=== PATIENT | female | born 1945 | race Caucasian/White ===

== ENCOUNTER → 2017-11-27 09:02 | Outpatient (CLI) | payer OTHER, SELFPAY ==
[2017-11-27 10:21] LABS: Add Manual Diff / Slide Review NO; Basophils Percent Auto 0.7 % (0-2); Eosinophils Percent Auto 1.7 % (2-4); Hematocrit 33.2 % (36-46); Hemoglobin 10.8 g/dL (12.0-16.0); Mean Corpuscular HGB Conc 32.5 % (30-36); Mean Corpuscular Volume 83.1 fL (80-100); Monocytes Percent Auto 8.7 % (3-14); Neutrophils Absolute Auto 3200 /uL (3000-5900); Neutrophils Percent Auto 64.9 % (50-75); Platelet Count 224 X10^3/uL (150-400); Red Blood Cell Count 3.99 X10^6/uL (4.0-5.2); White Blood Cell Count 4.9 X10^3/uL (4.5-11.0)
[2017-11-27 10:34] LABS: Hemoglobin A1C% w Est Avg Glu 6.5 % (4.0-6.0)
[2017-11-27 10:41] LABS: HEMOLYSIS < 15 (0-50); Iron 42 ug/dL (37-170)
[2017-11-27 10:42] LABS: Alanine Aminotransferase 22 IU/L (9-52); Albumin 4.1 g/dL (3.5-5.0); Albumin Globulin Ratio 1.4 (1.0-2.8); Alkaline Phosphatase 55 U/L (38-126); Aspartate Aminotransferase 26 IU/L (14-36); Bilirubin Total 0.5 mg/dL (0.2-1.3); Blood Urea Nitrogen 24 mg/dL (7-17); Calcium 8.9 mg/dL (8.4-10.2); Carbon Dioxide 34 mmol/L (22-32); Chloride 102 mmol/L (98-107); Cholesterol 188 mg/dL (140-199); Estimated Glomerular Filt Rate 44.3 mL/min (>60); Glucose 74 mg/dL (80-110); HDL Cholesterol 58 mg/dL (40-60); HEMOLYSIS < 15 (0-50); LDL Cholesterol Calculated 103 mg/dL (<100); Potassium 4.1 mmol/L (3.4-5.1); Sodium 143 mmol/L (137-145); Total Protein 7.1 g/dL (6.3-8.2); Triglycerides 137 mg/dL (35-150)
[2017-11-27 10:51] LABS: Creatinine Urine Random 57.7 mg/dL; Percent Iron Saturation 14 % (15-50); Total Iron Binding Capacity 295 ug/dL (265-497); Transferrin 236 mg/dL (206-381)
[2017-11-27 10:55] LABS: Microalbumi Creatinin Ratio Ur 39.8 ug/mg CR (<30); Microalbumin Urine Random 2.3 mg/dL (0-1.6); Vitamin D 25 Hydroxy (D3) 32.8 ng/mL (30.0-100.0)
[2017-11-27 11:11] LABS: Thyroid Stimulating Hormone 1.17 uIU/mL (0.47-4.68)
[2017-11-27 11:15] LABS: Ferritin 68.4 ng/mL (11.1-264)
== END ==
PROVIDERS: PCP Family Medicine; Visit Provider Family Medicine
DX: Z00.00 Encounter for general adult medical examination without abnormal findings (principal); E11.9 Type 2 diabetes mellitus without complications; E78.5 Hyperlipidemia, unspecified; E55.9 Vitamin D deficiency, unspecified; K50.90 Crohn's disease, unspecified, without complications; D64.9 Anemia, unspecified
CPT/HCPCS: 36415; 80053; 80061; 82043; 82306; 82570; 82728; 83036; 83540; 83550; 84443; 85025

== ENCOUNTER → 2018-04-10 11:04 | Outpatient (CLI) | payer OTHER, SELFPAY ==
[2018-04-10 12:16] LABS: Hematocrit 34.8 % (36-46); Hemoglobin 11.2 g/dL (12.0-16.0)
[2018-04-10 12:28] LABS: BUN Creatinine Ratio 14.6 (6-22); Blood Urea Nitrogen 19 mg/dL (7-17); Calcium 9.1 mg/dL (8.4-10.2); Carbon Dioxide 26 mmol/L (22-32); Chloride 104 mmol/L (98-107); Estimated Glomerular Filt Rate 40.4 mL/min (>60); Glucose 81 mg/dL (80-110); HEMOLYSIS < 15 (0-50); Potassium 4.4 mmol/L (3.4-5.1); Sodium 144 mmol/L (137-145)
== END ==
PROVIDERS: PCP Student in an Organized Health Care Education/Training Program; Visit Provider Student in an Organized Health Care Education/Training Program
DX: Z86.2 Personal history of diseases of the blood and blood-forming organs and certain disorders involving the immune mechanism (principal); N18.3 Chronic kidney disease, stage 3 (moderate)
CPT/HCPCS: 36415; 80048; 85014; 85018

== ENCOUNTER 2019-01-03 08:31 | Inpatient (IN) | payer MEDICARE, SELFPAY ==
[2019-01-03] VITALS (34 sets, daily range): BP systolic 87–194; BP diastolic 49–115; PULSE 59–138; RESP 12–28; TEMP 36.3–37.1; O2SAT 91–100; BMI 34.9
--- NOTE | 2019-01-03 08:39 | ED_ITS ---
HPI - General Adult General Chief complaint: Allergic Reaction Stated complaint: SOB, tongue swelling Time Seen by Provider: 01/03/19 08:33 Source: patient Mode of arrival: ambulatory Limitations: no limitations History of Present Illness HPI narrative: This is a 73-year-old female who comes to the emergency departm ent with complaint of difficulty breathing and swelling of her tongue patient states that she noted the changes about 1:00 a.m. this morning and they have continued. Patient does take lisinopril daily. She has never had similar symptoms in the past. She drove herself to the hospital. She denies any wheezing or tightness in her chest. She denies any other symptoms other than a mildly sore throat. Related Data Home Medications Medication Instructions Recorded Confirmed curcumin 1 dose PO DAILY 12/11/17 04/10/18 Glucose: Home Monitor 0 dev TOPICAL TID 01/03/19 01/03/19 omeprazole 20 mg PO DAILY 01/03/19 01/03/19 Previous Rx's Medication Instructions Recorded insulin syringe-needle U-100 0.3 #500 each 12/11/17 mL 29 gauge x 1/2 aspirin 81 mg tablet,delayed 81 mg PO DAILY #30 tab 04/10/18 release insulin glargine 100) 100 unit/mL 20 unit SUBCUT DAILY #10 ml 09/24/18 subcutaneous solution lisinopril 10 mg tablet 10 mg PO DAILY #90 tab 09/24/18 atorvastatin 20 mg tablet 20 mg PO QPM #90 tab 10/01/18 metformin 1,000 mg tablet 1,000 mg PO BID #180 tab 10/01/18 zolpidem 5 mg tablet 5 mg PO BEDTIME PRN #15 tab 10/01/18 Glucose: Test Strips #1 ea 11/21/18 Allergies Allergy/AdvReac Type Severity Reaction Status Date / Time lisinopril Allergy Severe Swelling Verified 01/03/19 15:32 of Lip/Tongue/Throat Review of Systems Review of Systems ROS Unobtainable: All systems reviewed & are unremarkable except as noted in HPI and below PFSH Medical History Abnormal Pap smear of cervix (Resolved) Crohn's disease (Chronic) Diabetes mellitus (Chronic) Duodenal ulcer (Chronic) GERD (gastroesophageal reflux disease) (Chronic) Hyperlipidemia (Chronic) Surgical History History of left oophorectomy (Resolved) Status post cone biopsy of cervix (Resolved) Status post laparoscopic cholecystectomy (Resolved) Family History Father Diabetes mellitus Social History Smoking Status: Former smoker Social History Smoking Status: Former smoker Exam Narrative Exam Narrative: GEN: well nourished, well appearing female, alert and oriented x 3, patient appears to be in mild distress. HEENT: Atraumatic, pupils are equal round reactive to light, extraocular movements are intact, nares are clear. Throat is clear without any exudate. Patient has some swelling of the tongue. Patient has a muffled voice. No stridor noted. HEART: Regular rate and rhythm without murmur, clicks, rubs. LUNGS:Lungs clear to auscultation, no wheezes, rales, crackles, chest moves symmetrically ABD:bowel sounds normal, soft, non-tender, no guarding, rebound, rigidity, no masses noted, no hepatosplenomegaly MSCL: Non-tender, no muscle atrophy, muscles strength 5/5 upper and lower extremities, full range of motion NEURO:CN 2-12 intact, sensation normal, normal gait. Initial Vital Signs Initial Vital Signs: Vital Signs Temperature 97.9 F 01/03/19 08:32 Pulse Rate 84 01/03/19 08:32 Respiratory Rate 20 01/03/19 08:32 Blood Pressure 140/68 01/03/19 08:32 Pulse Oximetry 99 01/03/19 08:32 Procedures Intubation Time out performed: Yes sedative: Ketamine Mg Given: 80 Laryngoscope: fiber optic video scope Assist Device Used: Bougie Intubation Complications: unable to intubate Additional Comments: Unsuccessful attempt at intubation, stopped and BVM back to 100%. 2nd attempt with bougie but patient began to gag and became awake and responsive. Procedure was halted. Patient to protect airway and anesthesia was contacted who were initially unavailable, ENT was contacted both ultimately ended up arriving to the Emergency Department evaluated patient and she was intubated by Dr. Wilson from anesthesia. Patient was quite anterior. Into was able to evaluate the patient during this episode and gave recommendations as well. Course Orders Ordered: ED Orders 01/03/19 09:32 CT soft tissue neck w con Stat 01/03/19 11:04 XR chest 1V Stat 01/03/19 12:13 Consult to Dietitian, Adult Routine Endotracheal tube suction As needed Acetaminophen (Tylenol Susp) 650 mg TUBE Q6HR [facility] Last Admin: 01/03/19 18:21 Dose: 650 mg Documented by: CAILIN Aspirin (Aspirin Chew) 81 mg TUBE DAILY SHIKHA Last Admin: 01/03/19 16:01 Dose: 81 mg Documented by: CAILIN Atorvastatin Calcium (Lipitor) 20 mg TUBE QPM [facility] Last Admin: 01/03/19 18:20 Dose: 20 mg Documented by: CAILIN Dextrose (D50w) 25 gm IV PRN PRN; Protocol PRN Reason: Hypoglycemia Docusate Sodium (Colace Oral Liquid) 100 mg TUBE BID [facility] Fentanyl (Sublimaze) 50 mcg IV Q2H PRN PRN Reason: Pain, Severe (7-10) Last Admin: 01/03/19 14:09 Dose: 50 mcg Documented by: SIA Fentanyl (Sublimaze) 100 mcg IV Q2HR PRN PRN Reason: Pain, Severe (7-10) Heparin Sodium (Porcine) (Heparin) 5,000 unit SUBCUT BID SHIKHA Sodium Chloride (Normal Saline 0.9%) 1,000 mls @ 150 mls/hr IV CONT SHIKHA Last Infusion: 01/03/19 13:27 Dose: 150 mls/hr Documented by: Admin: 01/03/19 11:00 Dose: 150 mls/hr Documented by: DESIRETONE Sodium Chloride (Normal Saline 0.9%) 1,000 mls @ 100 mls/hr IV CONT SHIKHA Last Admin: 01/03/19 14:23 Dose: 100 mls/hr Documented by: SIA Propofol (Propofol) 1,000 mg in 100 mls @ 2.472 mls/hr IV TITRATE SHIKHA; Protocol Last Titration: 01/03/19 14:41 Dose: 39.24 mcg/kg/min, 19.4 mls/hr Documented by: Admin: 01/03/19 14:23 Dose: 50 mcg/kg/min, 24.72 mls/hr Documented by: SIA Famotidine (Pepcid) 20 mg in 50 mls @ 200 mls/hr IV Q12HR [facility] Last Admin: 01/03/19 16:01 Dose: 200 mls/hr Documented by: CAILIN Insulin Aspart (Novolog Flexpen) 0 unit SUBCUT Q6H SHIKHA; Protocol Insulin Glargine (Lantus Solostar (Pen)) 20 unit SUBCUT BEDTIME SHIKHA Loratadine (Claritin) 10 mg PO DAILY [facility] Last Admin: 01/03/19 16:00 Dose: 10 mg Documented by: CAILIN Methylprednisolone (Solu-Medrol 125 Mg Vial) 60 mg IV Q8H [facility] Last Admin: 01/03/19 14:49 Dose: 60 mg Documented by: SIA Discontinued Medications Benzocaine/Butamben/Tetracaine HCl (Cetacaine Chaplin) 1 spray TOP NOW ONE Stop: 01/03/19 10:26 Last Admin: 01/03/19 11:15 Dose: Not Given Documented by: KOFI Diazepam (Valium) 5 mg IV NOW ONE Stop: 01/03/19 11:02 Last Admin: 01/03/19 11:05 Dose: 5 mg Documented by: KOFI Diphenhydramine HCl (Benadryl) 50 mg IV NOW ONE Stop: 01/03/19 08:38 Last Admin: 01/03/19 08:50 Dose: 50 mg Documented by: KOFI Epinephrine HCl (Adrenalin) 0.5 mg IM NOW ONE Stop: 01/03/19 08:38 Last Admin: 01/03/19 08:45 Dose: 0.5 mg Documented by: KOFI Famotidine (Pepcid) 20 mg in 50 mls @ 200 mls/hr IV NOW ONE Stop: 01/03/19 08:51 Last Infusion: 01/03/19 09:21 Dose: 0 mls/hr Documented by: Admin: 01/03/19 08:51 Dose: 200 mls/hr Documented by: KOFI Sodium Chloride (Normal Saline 0.9%) 1,000 mls @ 1,000 mls/hr IV BOLUS ONE Stop: 01/03/19 09:36 Last Infusion: 01/03/19 10:00 Dose: 0 mls/hr Documented by: Admin: 01/03/19 08:48 Dose: 1,000 mls/hr Documented by: KOFI Ampicillin Sodium/Sulbactam (Sodium 1.5 gm/ Sodium Chloride) 100 mls @ 100 mls/hr IV NOW ONE Stop: 01/03/19 09:24 Last Infusion: 01/03/19 10:50 Dose: 0 mls/hr Documented by: Admin: 01/03/19 09:48 Dose: 100 mls/hr Documented by: KOFI Propofol (Propofol) 1,000 mg in 100 mls @ 2.472 mls/hr IV TITRATE SHIKHA; Protocol Last Titration: 01/03/19 14:30 Dose: 0 mcg/kg/min, 0 mls/hr Documented by: Titration: 01/03/19 13:51 Dose: 30 mcg/kg/min, 14.832 mls/hr Documented by: Titration: 01/03/19 13:13 Dose: 24.27 mcg/kg/min, 11.999 mls/hr Documented by: Titration: 01/03/19 12:46 Dose: 24.27 mcg/kg/min, 12 mls/hr Documented by: Titration: 01/03/19 11:50 Dose: 20 mcg/kg/min, 9.888 mls/hr Documented by: Admin: 01/03/19 10:55 Dose: 5 mcg/kg/min, 2.472 mls/hr Documented by: KOFI Ketamine HCl (Ketalar) 80 mg 1 mg/kg (80 mg) IV NOW ONE Stop: 01/03/19 09:53 Last Admin: 01/03/19 10:14 Dose: 80 mg Documented by: KOFI Ketamine HCl (Ketalar) 80 mg 1 mg/kg (80 mg) IV NOW ONE Stop: 01/03/19 11:28 Last Admin: 01/03/19 10:43 Dose: 80 mg Documented by: KOFI Ketamine HCl (Ketalar) 80 mg 1 mg/kg (80 mg) IV NOW ONE Stop: 01/03/19 11:30 Last Admin: 01/03/19 10:46 Dose: 80 mg Documented by: KOFI Methylprednisolone (Solu-Medrol 125 Mg Vial) 125 mg IV NOW ONE Stop: 01/03/19 08:38 Last Admin: 01/03/19 08:44 Dose: 125 mg Documented by: KOFI Methylprednisolone (Solu-Medrol 125 Mg Vial) 60 mg IV Q8H SHIKHA Last Admin: 01/03/19 14:54 Dose: Not Given Documented by: SIA Ondansetron HCl (Zofran) 4 mg IV NOW ONE Stop: 01/03/19 09:02 Last Admin: 01/03/19 09:07 Dose: 4 mg Documented by: KOFI Propofol (Diprivan) 50 mg IV NOW ONE Stop: 01/03/19 10:51 Last Admin: 01/03/19 10:50 Dose: 50 mg Documented by: KOFI Succinylcholine Chloride (Quelicin) 20 mg IV NOW ONE Stop: 01/03/19 10:48 Last Admin: 01/03/19 10:47 Dose: 20 mg Documented by: KOFI Vital Signs Vital signs: Vital Signs - 8 hr 01/03/19 10:36 01/03/19 10:45 01/03/19 10:55 Pulse Rate 107 H 134 H 126 H Respiratory Rate 17 20 15 Blood Pressure [Left Arm] 165/63 H 183/94 H 180/115 H Pulse Oximetry 100 93 92 01/03/19 11:05 01/03/19 11:15 01/03/19 11:31 Pulse Rate 122 H 131 H 102 H Respiratory Rate 18 15 12 Blood Pressure [Left Arm] 194/81 H 113/69 107/53 L Pulse Oximetry 94 91 96 01/03/19 11:56 01/03/19 12:22 Pulse Rate 107 H 89 Respiratory Rate 12 12 Blood Pressure [Left Arm] 151/100 H 94/53 L Pulse Oximetry 95 96 Medical Decision Making Lab Data Lab results reviewed: Yes I reviewed the patient's lab results. Result diagrams: 01/03/19 08:40 01/03/19 08:40 Labs: Lab Results 01/03/19 01/03/19 Range/Units 08:40 08:40 WBC 9.5 (4.5-11.0) X10^3/uL RBC 4.22 (4.0-5.2) X10^6/uL Hgb 11.2 L (12.0-16.0) g/dL Hct 34.5 L (36-46) % MCV 81.8 (80-100) fL MCH 26.6 (26-34) PG MCHC 32.5 (30-36) % RDW 15.1 H (11.6-14.8) % Plt Count 248 (150-400) X10^3/uL Neut % (Auto) 74.3 (50-75) % Lymph % (Auto) 17.0 L (25-40) % [place] % (Auto) 5.8 (3-14) % Eos % (Auto) 2.2 (2-4) % Baso % (Auto) 0.7 (0-2) % Neut # (Auto) 7100 H (5363-9915) /uL Lymph # (Auto) 1600 (4750-4378) /uL [place] # (Auto) 600 (0-900) /uL Eos # (Auto) 200 (0-450) /uL Baso # (Auto) 100 (0-100) /uL Sodium 142 (137-145) mmol/L Potassium 4.8 (3.4-5.1) mmol/L Chloride 105 (98-107) mmol/L Carbon Dioxide 25 (22-32) mmol/L BUN 32 H (7-17) mg/dL Creatinine 1.40 H (0.52-1.04) mg/dL Estimated GFR 37.0 L (>60) mL/min BUN/Creatinine Ratio 22.9 H (6-22) Glucose 124 H (80-110) mg/dL Calcium 9.6 (8.4-10.2) mg/dL Urine Dip Bedside Urine Glucose Negative Bedside Urine Bilirubin - Negative Bedside Urine Ketone - Negative Urine Specific [place] 1.010 Bedside Urine Occult Blood - Negative Bedside Urine pH 5.5 Bedside Urine Protein - Negative Bedside Urine Urobilinogen - Negative Bedside Urine Nitrite - Negative Bedside Urine Leukocytes + 70 Esterase Point of care testing: Urine Dip Bedside Urine Glucose Negative Bedside Urine Bilirubin - Negative Bedside Urine Ketone - Negative Urine Specific [place] 1.010 Bedside Urine Occult Blood - Negative Bedside Urine pH 5.5 Bedside Urine Protein - Negative Bedside Urine Urobilinogen - Negative Bedside Urine Nitrite - Negative Bedside Urine Leukocytes + 70 Esterase Imaging Data Chest x-ray: My impression: ETT in place. Patchy chest xray. Radiologist's impression: [address] [address] XRay Report Signed Patient: Nani Morton#: [id number] : 1946Acct:[id number] Age/Sex: 73 / FDate of Service: 01/03/19 Loc: ED Accession Number: [id number] Procedure: XR chest 1V Ordering Provider: Donna Marroquin D.O. PROCEDURE: XR CHEST 1V INDICATIONS: post difficult intubation TECHNIQUE: One view of the chest was acquired. COMPARISON: [facility], CHEST 2 VIEW, 06/26/2011, 14:47. FINDINGS: Surgical changes and devices: Endotracheal tube with the tip projecting 3 cm above the lorraine. Right upper quadrant surgical clips Lungs and pleura: No acute consolidation. Patchy retrocardiac opacities Scattered subsegmental atelectasis and/or scarring. No pleural effusion. No pneumothorax. Mediastinum: Mediastinal contours appear normal. Heart size is normal. Bones and chest wall: No suspicious bony lesions. Overlying soft tissues appear unremarkable. IMPRESSION: Endotracheal tube with the tip projecting 3 cm above the lorraine. Low lung volumes and scattered atelectasis. Retrocardiac opacity could represent aspiration/atelectasis versus pneumonia. Dictated by: Herber Paul M.D. on 01/03/2019 at 11:23 Approved by: Herber Paul M.D. on 01/03/2019 at 11:25 ECG Data Attestation: I personally reviewed and interpreted this ECG as follows: Interpretation: Sinus rhythm rate 80, P are 135 QRS 85 and QTC of 391. No ST elevation or depression appreciated. MDM Narrative Additional Information: Patient suspect she has lisinopril induced angioedema. Patient was given epinephrine, Solu-Medrol, Pepcid Benadryl with mild improvement. Patient's voice is a little clearer, she feels it's easier to br eath. Her neck does appear swollen on outer neck and she has had sore throat. Will evaluate for possible infection although afebrile with no elevated WBC. Will continue to monitor, patient and I did discuss that she may be intubated for airway protection and she consents if needed, verbal consent was obtained from patient. risks/benefits discussed and patient understanbly nervous but agreeable. Patient was difficult airway, initially given ketamine and was able to visualize cords but unable to pass tube, repeated 2nd attempt with bougie and glidoscope and Patient then began to wake and have gagging. Patient was able to be oxygenating easily and was anesthesia and ENT were contacted. Patient was intubated. ENT evaluate airway as well and feels likely angioedema but unknown cause for sure. Recommend continued steroids. They will continue to follow the patient. Spoke with Dr. Lomlei, who accepts for ICU and continued airway monitoring. Discussed plan and recomendations for ENT. Critical Care Time Critical Care Time Critical Care Time: Yes Total Critical Care Time: 120 Attestation: The high probability of a clinically significant, sudden or life threatening deterioration of the [pulm] system(s) required my full and direct attention, intervention and personal management. The aggregate critical care time was [120] minutes. This time is in addition to time spent performing reported procedures but includes the following: [x] Data Review and interpretation [x] Patient assessment and monitoring of vital signs [x] Documentation xMedication orders and management Discharge Plan Departure Patient Disposition: Admitted As Inpatient Clinical Impression: Angioedema Discharge Date/Time: 01/03/19 13:13 Admit Date/Time: 01/03/19 12:51 Admit Provider: Michelle Lomeli
[2019-01-03] MEDS: methylPREDNISolone 125 MG/2 ML VIAL IV (08:44)
[2019-01-03] MEDS: EPINEPHrine 1 MG/ML AMPUL 0.5 MG IM (08:45)
[2019-01-03 08:48] LABS: Add Manual Diff / Slide Review NO; Basophils Absolute Auto 100 /uL (0-100); Basophils Percent Auto 0.7 % (0-2); Eosinophils Absolute Auto 200 /uL (0-450); Eosinophils Percent Auto 2.2 % (2-4); Hematocrit 34.5 % (36-46); Hemoglobin 11.2 g/dL (12.0-16.0); Lymphocytes Absolute Auto 1600 /uL (1100-4500); Mean Corpuscular HGB Conc 32.5 % (30-36); Mean Corpuscular Hemoglobin 26.6 PG (26-34); Mean Corpuscular Volume 81.8 fL (80-100); Monocytes Absolute Auto 600 /uL (0-900); Monocytes Percent Auto 5.8 % (3-14); Neutrophils Absolute Auto 7100 /uL (1500-7000); Neutrophils Percent Auto 74.3 % (50-75); Platelet Count 248 X10^3/uL (150-400); Red Blood Cell Count 4.22 X10^6/uL (4.0-5.2); Red Cell Distribution Width 15.1 % (11.6-14.8); White Blood Cell Count 9.5 X10^3/uL (4.5-11.0)
[2019-01-03] MEDS: SODIUM CHLORIDE 0.9% 1,000 ML 1000 ML IV (08:48)
[2019-01-03] MEDS: diphenhydrAMINE 50 MG/ML VIAL IV (08:50)
[2019-01-03] MEDS: FAMOTIDINE 20 MG/50 ML PIGGYBACK 200 MG IV ×2 (08:51→16:01)
[2019-01-03 09:00] LABS: BUN Creatinine Ratio 22.9 (6-22); Blood Urea Nitrogen 32 mg/dL (7-17); Calcium 9.6 mg/dL (8.4-10.2); Carbon Dioxide 25 mmol/L (22-32); Chloride 105 mmol/L (98-107); Glucose 124 mg/dL (80-110); HEMOLYSIS < 15 (0-50); Potassium 4.8 mmol/L (3.4-5.1); Sodium 142 mmol/L (137-145)
[2019-01-03] MEDS: ONDANSETRON 4 MG/2 ML INJ IV (09:07)
--- NOTE | 2019-01-03 09:32 | DI.CT.S_ITS ---
PROCEDURE: CT SOFT TISSUE NECK W CON INDICATIONS: soire throat, swelling, neck, muffled voice TECHNIQUE: After the administration of intravenous contrast, 3.0 mm axial sections acquired from the sella to the aortic arch. Additional oblique axial 3.0 mm sections acquired through the pharynx. 3 mm thick coronal and sagittal reformats were generated. For radiation dose reduction, the following was used: automated exposure control. COMPARISON: None. FINDINGS: Image quality: Excellent. Lymph nodes: No enlarged lymph nodes seen throughout the neck. Vessels: Visualized vasculature appears patent. Neck spaces: There is supraglottic airway narrowing, slightly below and at the level of the vallecula where there is left-sided abnormal soft tissue and mucosal thickening. This results in left-sided airway narrowing. There is partial effacement of the left aspect of the vallecula. Overall, abnormal soft tissue measuring approximately 1.8 x 1.5 cm on image 46 series 2. Glands: The parotid and submandibular glands appear normal. Thyroid gland grossly unremarkable. Miscellaneous: Visualized brain and orbits appear normal. Lung apices appear clear. Superficial soft tissues appear normal. Bones: No suspicious bony lesions. Diffuse cervical spondylosis and facet disease. Straightening of the normal lordotic curvature. Visualized sinuses and mastoids appear unremarkable. IMPRESSION: Focal and asymmetric left-sided soft tissue enlargement/mass at and just below the level of the vallecula with associated left-sided airway narrowing. Recommend ENT consultation and direct visualization as malignancy cannot be excluded. Infectious, inflammatory or drug related angioedema in the differential although would be unusual presentation given the asymmetric left-sided appearance. Please correlate clinically. Findings were personally telephoned and discussed with Dr. Marroquin in the emergency department at 1003 hrs 01/03/19. Dictated by: Herber Paul M.D. on 01/03/2019 at 9:54 Approved by: Herber Paul M.D. on 01/03/2019 at 10:07
[2019-01-03] MEDS: AMPICILLIN/SULBACTAM 1.5 GM 1.5 GM in SODIUM CHLORIDE 0.9% 100 ML IV (09:48)
[2019-01-03] MEDS: KETAMINE 500 MG/5 ML INJ 80 MG IV ×3 (10:14→10:46)
[2019-01-03] MEDS: SUCCINYLCHOLINE 100 MG/5 ML INJ 20 MG IV (10:47)
[2019-01-03] MEDS: PROPOFOL 200 MG/20 ML VIAL 50 MG IV (10:50)
[2019-01-03] MEDS: PROPOFOL 1,000 MG/100 ML VIAL 2.472 MG IV (10:55)
[2019-01-03] MEDS: SODIUM CHLORIDE 0.9% 1,000 ML 150 ML IV (11:00)
--- NOTE | 2019-01-03 11:00 | PM.PROC.1 ---
Procedures Date/Time Date of procedure: 01/03/19 Time of procedure: 10:49 Intubation Sedative: ketamine Mg given: 160 Paralytic: succinylcholine Mg given: 40 Laryngoscope: fiber optic video scope Assist device used: Bougie ET tube size: 6.5 ET tube uncuffed: No Tube secured depth (cm): 22 Tube secured location: teeth Tube placement confirmation: visualized tube passing through cords, equal breath sounds bilaterally and confirmation by capnometry Patient tolerated procedure: well and no complications Intubation complications: difficult intubation Additional comments: Called to patient bedside for emergent intubation. ED provider had attempted once with glidescope without success. Patient was spontaneously ventilating but becoming more distressed. O2 Sat 100% on bag mask assist. Angioedema likely diagnosis. Ketamine administered IV. Glidescope used with arytenoid edema noted as well as a very anterior larynx. ETT placement intially unsuccessful and attempt with bougie also unsuccessful despite BURP. Vocal cords seen intermittently but with patient gag and swallowing, we determined succinyl choline was necessary and given. ETT placed with a lot of anterior flexion. (+) EtCO2 and bilateral breath sounds. Sedation started. No acute complications.
--- NOTE | 2019-01-03 11:04 | DI.RAD.S_ITS ---
PROCEDURE: XR CHEST 1V INDICATIONS: post difficult intubation TECHNIQUE: One view of the chest was acquired. COMPARISON: [facility], , CHEST 2 VIEW, 06/26/2011, 14:47. FINDINGS: Surgical changes and devices: Endotracheal tube with the tip projecting 3 cm above the lorraine. Right upper quadrant surgical clips Lungs and pleura: No acute consolidation. Patchy retrocardiac opacities Scattered subsegmental atelectasis and/or scarring. No pleural effusion. No pneumothorax. Mediastinum: Mediastinal contours appear normal. Heart size is normal. Bones and chest wall: No suspicious bony lesions. Overlying soft tissues appear unremarkable. IMPRESSION: Endotracheal tube with the tip projecting 3 cm above the lorraine. Low lung volumes and scattered atelectasis. Retrocardiac opacity could represent aspiration/atelectasis versus pneumonia. Dictated by: Herber Paul M.D. on 01/03/2019 at 11:23 Approved by: Herber Paul M.D. on 01/03/2019 at 11:25
[2019-01-03] MEDS: diazePAM 10 MG/2 ML SYRINGE 5 MG IV (11:05)
--- NOTE | 2019-01-03 11:36 | PC.NURSE ---
pt with increase in airway swelling and difficulty breathing l>r, Dr. Marroquin aware and attempted intubation. Anesthesia and Dr. Rojas (ent) to bedside. pt was intubated-difficult airway. pt is on the vetnt with Tv 380, RR 12, peep +5, fio2 60 percent. tube verified by color change, auscultation and xray. pt is on a proprofol gtt, titrated for sedation.
--- NOTE | 2019-01-03 13:29 | PC.NURSE ---
pt to ICu, ventilated with a Propofol Gtt infusing at 24.27 mcg/kg/ min. and ivf, normal saline at 150 cc/hour infusing,
[2019-01-03] MEDS: fentaNYL 100 MCG/2 ML INJ 50 MCG IV ×4 (14:09→23:58)
--- NOTE | 2019-01-03 14:19 | DI.RAD.S_ITS ---
PROCEDURE: XR CHEST 1V INDICATIONS: placement OG tube TECHNIQUE: One view of the chest was acquired. COMPARISON: [facility], CR, XR CHEST 1V, 01/03/2019, 11:03. FINDINGS: Surgical changes and devices: Enteric tube with the tip seen projecting in the stomach. Endotracheal tube with the tip projecting approximately 3 cm above the lorraine . Right upper quadrant surgical clips Lungs and pleura: No acute consolidation. Scattered subsegmental atelectasis and/or scarring. Unchanged mild retrocardiac opacity No pleural effusion. No pneumothorax. Mediastinum: Mediastinal contours appear normal. Heart size is normal. Bones and chest wall: No suspicious bony lesions. Overlying soft tissues appear unremarkable. IMPRESSION: Enteric tube with the tip projecting in the stomach. Dictated by: Herber Paul M.D. on 01/03/2019 at 14:58 Approved by: Herber Paul M.D. on 01/03/2019 at 14:59
[2019-01-03] MEDS: PROPOFOL 1,000 MG/100 ML VIAL 24.72 MG IV (14:23)
[2019-01-03] MEDS: SODIUM CHLORIDE 0.9% 1,000 ML 100 ML IV (14:23)
[2019-01-03] MEDS: methylPREDNISolone 125 MG/2 ML VIAL 60 MG IV ×2 (14:49→22:17)
[2019-01-03 14:52] LABS: HCO3 ABG 18 mmol/L (22-26); PCO2 ABG 32.8 mmHg (35-45); PO2 ABG 89 mmHg (80-100); pH ABG 7.35 (7.35-7.45)
[2019-01-03 14:53] LABS: Fractionated Inspired Oxygen 0.35; Oxygen Saturation ABG 97 % (95-100); TCO2 ABG 19 mmol/L (21-31)
--- NOTE | 2019-01-03 15:17 | PC.NURSE ---
Admit to ICU Room 103, vented, Fi02 60% ,PIV x2, OG placed for meds, 14fr x2 attempts d/t swelling. Propfol gtt titrated per Emar. Attempts at removal of ET, notified Dr Lomeli of need for restraint order.
[2019-01-03] MEDS: LORATADINE 10 MG TABLET PO (16:00)
[2019-01-03] MEDS: ASPIRIN 81 MG CHEW TAB TUBE (16:01)
--- NOTE | 2019-01-03 16:15 | DIET.PN ---
Dietary Note Dietary Progress Note Assessment: 73 yof admitted for SOB and tongue swelling r/t an allergic reaction. She is currently NPO on ventilator. HT: 152.4cm WT: 81kg IBW: 45.5kg BMI: 34.9 (obese) Diet: NPO EER: 7440-3053 kcal @ 30-35 rober/kg IBW 45-55 g pro @ 1-1.2 g/kg 2400 ml fluid @ 30 ml/kg ABW Interventions: Recommend Glucerna 1.5 for lower CHO to reduce resp quotient @ 42ml/hr continuous feed w/ 100ml water flushes q4hr. Begin w/20ml/hr, increasing by 10 ml q4h until reaching the goal rate. Provides 1500 rober (100% needs) 82.5g pro Monitoring/Evaluations: GRV q4h for tolerance
[2019-01-03] MEDS: ATORVASTATIN 20 MG TABLET TUBE (18:20)
[2019-01-03] MEDS: ACETAMINOPHEN SUSP 650 MG/20.3 ML UDC TUBE ×2 (18:21→23:58)
[2019-01-03] MEDS: INSULIN ASPART 100 UNIT/ML INSULN PEN SUBCUT ×2 (18:31→23:54)
[2019-01-03] MEDS: PROPOFOL 1,000 MG/100 ML VIAL 19.4 MG IV (19:30)
--- NOTE | 2019-01-03 20:02 | PM.HP.1 ---
History of Present Illness History of Present Illness Date Patient Seen: 01/03/19 Time Patient Seen: 21:32 Chief complaint: SOB, tongue swelling Narrative: At time of HPI patient is intubated and moderately sedated with RASS score of 2. Her 2 daughters are at bedside and provide details outlined in the HPI. The patient is a 73-year-old female with PMH IDDM 2T, GERD, duodenal ulcer, Crohn's disease, HLD, history of anemia, and CKD 3. Patient is an independent older adult who presented to the ED out of concern for progressive tongue and throat swelling. No reported symptoms of urticaria. Symptoms noted at 1:00 a.m. on 01/03 and progressively worsening until patient presented to the ED. Associated symptoms include hoarse voice. Patient has been suffering from acute flu-like symptoms in the past week she is noted to have had a non-productive cough, that was worse during the night. Patient has not had any similar events in the past. She does take lisinopril 10 mg daily for renal protection. Patient and family does not endorse history of hypertension. Her dose of lisinopril was increased at the beginning of the year. On initial presentation patient was hypoxic with SpO2 in the 80s. Emergent CT of the neck revealed focal an asymmetric left-sided soft tissue enlargement/mass at just below the level the vallecula with associated left-sided airway narrowing. Efforts made by the ED provider to intubate the patient, however she was found to be difficult intubation. ENT and anesthesia had to aid with intubation. At time of HPI patient is ventilated. She is tolerating the vent. She is not overtly sedated, are as score of 2, and is able to nonverbally confirm informations with no months. She is requiring quite a bit of sedation. Currently on propofol at 40 mcg. She also has fentanyl available as needed. In the ED patient received dexamethasone. Patient has not been complaining of any acute ailment in the past week with exception of flu like symptoms described above. She does have history of Crohn's which has been controlled with curcumin, however the past couple of days has had more diarrhea than usual. Patient did not complain of any particular abdominal discomfort, nausea, vomiting or rectal bleeding. Patient is said to have been partaking in a marijuana use in the past week as well as light to moderate beer consumption. The family communicates that this is a difficult time for the patient. Patient is known to have loss or significant other and the past 1-2 years during this time. The family does not endorse fever or chills. No significant weight loss reported. Initial labs were unremarkable for leukocytosis. Hemoglobin 11.2 and PLT 248, stable. She does have underlying renal insufficiency, and renal function is at her baseline. Received 125 methylprednisolone, epinephrine, and Benadryl in the ED.CKD I Patient History Medical History Abnormal Pap smear of cervix (Resolved) Crohn's disease (Chronic) Diabetes mellitus (Chronic) Duodenal ulcer (Chronic) GERD (gastroesophageal reflux disease) (Chronic) Hyperlipidemia (Chronic) Surgical History History of left oophorectomy (Resolved) Status post cone biopsy of cervix (Resolved) Status post laparoscopic cholecystectomy (Resolved) Family History Father Diabetes mellitus Social History household members: none Smoking Status: Former smoker Family & Social History Family History Father Diabetes mellitus Safety & Behavioral: Feels Safe in Current Unwilling to Answer Environment Tobacco & Substance use: Smoking Status Former smoker Meds Home Medications and Allergies Home Medications Medication Instructions Recorded Confirmed Type curcumin 1 dose PO DAILY 12/11/17 04/10/18 History insulin syringe-needle U-100 0.3 #500 each 12/11/17 01/03/19 Rx mL 29 gauge x 1/2 aspirin 81 mg tablet,delayed 81 mg PO DAILY #30 tab 04/10/18 01/03/19 Rx release insulin glargine 100) 100 unit/mL 20 unit SUBCUT DAILY #10 ml 09/24/18 Rx subcutaneous solution lisinopril 10 mg tablet 10 mg PO DAILY #90 tab 09/24/18 01/03/19 Rx atorvastatin 20 mg tablet 20 mg PO QPM #90 tab 10/01/18 01/03/19 Rx metformin 1,000 mg tablet 1,000 mg PO BID #180 tab 10/01/18 01/03/19 Rx zolpidem 5 mg tablet 5 mg PO BEDTIME PRN #15 tab 10/01/18 Rx Glucose: Test Strips #1 ea 11/21/18 01/03/19 Rx Glucose: Home Monitor 0 dev TOPICAL TID 01/03/19 01/03/19 History omeprazole 20 mg PO DAILY 01/03/19 01/03/19 History Allergies Allergy/AdvReac Type Severity Reaction Status Date / Time lisinopril Allergy Severe Swelling Verified 01/03/19 15:32 of Lip/Tongue/Throat Review of Systems Review of Systems ROS Unobtainable: All systems reviewed & are unremarkable except as noted in HPI and below Exam Vital Signs (past 8 hours): - 01/03/19 12:22 01/03/19 13:09 01/03/19 13:15 Temperature 97.7 F Pulse Rate 89 87 95 H Respiratory Rate 12 15 12 Blood Pressure 144/75 H 144/74 H Blood Pressure [Left Arm] 94/53 L Pulse Oximetry 96 98 98 01/03/19 13:20 01/03/19 14:00 01/03/19 14:33 Temperature Pulse Rate 83 79 70 Respiratory Rate 15 16 12 Blood Pressure 128/64 130/63 87/49 L Blood Pressure [Left Arm] Pulse Oximetry 99 100 96 01/03/19 15:00 01/03/19 16:00 01/03/19 17:00 Temperature 98.8 F 97.3 F L Pulse Rate 67 64 65 Respiratory Rate 16 15 15 Blood Pressure 91/51 L 96/59 L 108/61 Blood Pressure [Left Arm] Pulse Oximetry 96 96 97 01/03/19 18:00 01/03/19 19:00 01/03/19 19:30 Temperature Pulse Rate 63 64 61 Respiratory Rate 15 15 15 Blood Pressure 104/62 106/63 107/61 Blood Pressure [Left Arm] Pulse Oximetry 95 95 96 Fraction of Inspired Oxygen 35 Oxygen Delivery Method Mechanical Ventilation Oxygen Flow Rate 2 Narrative Exam Narrative: Constitutional: moderately anxious, intubated daughters (x2) at bedside. Neurologic: Awakens, answers yes not questions, follows simple commands, no facial asymmetry Head: NC, AT Eyes: PERRL, EOMI, gaze conjuage Ears: external ears normal, no otorrhea Nose: external nose normal, no rhinorrhea or epistaxis Throat: MMM, OG present, Neck: left neck mass, palpable Chest / Respiratory: no dyspnea or tachypnea, equal chest rise, rhonchi, tolerating ventilation Heart / CV: S1S2, no murmur Abdomen / GI: round, non-distended, tender to palpation : no suprapubic tenderness Peripheral / Vascular: warm to touch, DP and PT pulses palpable, no edema Musc: adequate muscle tone and bulk, b/l soft wrist restraints present Skin: no ecchymosis or suspicious lesions / ulcers, no sx of urticaria Objective Labs Result Diagrams: 01/03/19 08:40 01/03/19 08:40 Labs: Laboratory Results - last 24 hr 01/03/19 01/03/19 01/03/19 08:40 08:40 13:58 WBC 9.5 RBC 4.22 Hgb 11.2 L Hct 34.5 L MCV 81.8 MCH 26.6 MCHC 32.5 RDW 15.1 H Plt Count 248 Neut % (Auto) 74.3 Lymph % (Auto) 17.0 L [place] % (Auto) 5.8 Eos % (Auto) 2.2 Baso % (Auto) 0.7 Neut # (Auto) 7100 H Lymph # (Auto) 1600 [place] # (Auto) 600 Eos # (Auto) 200 Baso # (Auto) 100 ABG pH ABG pCO2 ABG pO2 ABG HCO3 ABG Total CO2 ABG O2 Saturation ABG Base Excess FiO2 Sodium 142 Potassium 4.8 Chloride 105 Carbon Dioxide 25 BUN 32 H Creatinine 1.40 H Estimated GFR 37.0 L BUN/Creatinine Ratio 22.9 H Glucose 124 H Calcium 9.6 Nasal Screen MRSA (PCR) Negative for mrsa 01/03/19 14:25 WBC RBC Hgb Hct MCV MCH MCHC RDW Plt Count Neut % (Auto) Lymph % (Auto) [place] % (Auto) Eos % (Auto) Baso % (Auto) Neut # (Auto) Lymph # (Auto) [place] # (Auto) Eos # (Auto) Baso # (Auto) ABG pH 7.35 ABG pCO2 32.8 L ABG pO2 89 ABG HCO3 18 L ABG Total CO2 19 L ABG O2 Saturation 97 ABG Base Excess -7.0 L FiO2 0.35 Sodium Potassium Chloride Carbon Dioxide BUN Creatinine Estimated GFR BUN/Creatinine Ratio Glucose Calcium Nasal Screen MRSA (PCR) Assessment & Plan Assessment & Plan narrative: Angioedema, acute, present on admission active On lisinopril for renal protection, has been on a long acting SMITH (lisinopril) since at least 11/2017. No prior known angioedema or immune mediated events. Dose of lisinopril increased from 2.5 to 10 mg QD 03/2018, reason not entirely clear. She does not have a history of HTN. Angioedema may occur suddenly even though the drug has been tolerated for years. Angioedema w/o urticaria. CT Soft Tissue Neck, focal and asymmetric left-sided soft tissue enlargement/mass at and just below the level of the vallecula with associated left-sided airway narrowing. Recommend ENT consultation and direct visualization as malignancy cannot be excluded. Infectious, inflammatory or drug related angioedema in the differential although would be unusual presentation given the asymmetric left-sided appearance. Please correlate clinically. - Etiology not entirely clear, ie IgE mediated vs complement mediated vs hereditary. Will check C4 level, sed rate - Given CT findings there is a concern for potential malignant disease, that needs to be investigated in collaboration with ENT once patient's acute condition resolves. if this is the case likely antihistamines and steroids may not be effective in reason lotion of airway obstruction - D/C lisinopril - Acute symptomatic, supportive care, will use steroids as needed Acute respiratory failure in the setting of airway obstruction, acute, present on admission, active - intubated in ED, she was difficult intubation - Consult RT. Tolerating ventilation. Requiring marked use of propofol. DM 2T, chronic condition, present on admission, active IDDM 2T, controlled. - monitor BG closely, will likely exhibit elevated glucose levels from baseline in lieu of acute steroid use - increased SSI level to high. Glu POC Q6H while intubated. CKD III, chronic condition, present on admission, stable - renal fx at baseline, continue trend Chrohn's disease, chronic condition, present on admission, stable - BILLING TYPIST treated w/ curcumin. GERD, chronic condition, present on admission, stable - on PPI, convert home dose to IV formulation while intubated and NPO Code status discussed with daughters. Patient is DNR. She does have an advanced directive that is in her home. Daughters will bring tomorrow. Both daughters are designated decision makers for the patient. The oldest daughter is primary. At baseline patient is functionally independent. Quality VTE Deep Vein Thrombosis/Pulmonary Embolism Present on Admission: No
[2019-01-03] MEDS: DOCUSATE ORAL LIQUID 100 MG/10 ML UDC TUBE (20:24)
[2019-01-03] MEDS: HEPARIN 5,000 UNIT/ML VIAL 5000 UNIT SUBCUT (20:24)
[2019-01-03] MEDS: INSULIN GLARGINE 100 UNIT/ML 3ML PEN 20 UNIT SUBCUT (20:56)
[2019-01-03 21:37] LABS: Erythrocyte Sedimentation Rate 42 MM/HR (0-20)
[2019-01-04] VITALS (29 sets, daily range): BP systolic 84–137; BP diastolic 43–77; PULSE 53–90; RESP 14–17; TEMP 35.9–36.7; O2SAT 92–99
[2019-01-04] MEDS: PROPOFOL 1,000 MG/100 ML VIAL 19.4 MG IV ×2 (00:18→03:46)
[2019-01-04] MEDS: SODIUM CHLORIDE 0.9% 1,000 ML 100 ML IV ×2 (00:20→11:21)
[2019-01-04] MEDS: fentaNYL 100 MCG/2 ML INJ 50 MCG IV ×2 (02:51→05:01)
--- NOTE | 2019-01-04 02:54 | CONS_ITS ---
DATE OF SERVICE: 01/03/2019 OTOLARYNGOLOGY CONSULTATION CHIEF COMPLAINT: Progressive airway obstruction, neck swelling. HISTORY OF PRESENT ILLNESS: A 73-year-old female, without prior similar history, evidently awoke very early this morning with a sensation of throat swelling, mild sore throat. She presented to the emergency room several hours later, and I was contacted emergently for help with difficult intubation. Despite medical treatment for presumably lisinopril-induced angioedema, the patient was noticing progressive airway issues and neck swelling. Dr. Marroquin attempted intubation initially with ketamine, which was unsuccessful, and the patient awakened. I was contacted, as well as Anesthesia, stat. No known preceding URI or trauma. No other ENT complaints. White count was 9.5. Past Medical History, Medications, Allergies, Social History, Review of Systems, Family History reviewed on the electronic chart. PHYSICAL EXAMINATION: VITAL SIGNS: On the chart. GENERAL APPEARANCE: Well-developed, well-nourished female, not speaking, lying with head elevated, without obvious stridor, controlling secretions. HEENT: Anterior neck was minimally firm, but swollen and edematous, although landmarks were palpable. No obvious tenderness. Otherwise, head was normocephalic, atraumatic. External ears normal. External nose normal. Tongue was maintained in the mouth. PROCEDURE: The patient was intubated via Anesthesiology, eventually with the GlideScope, and I visualized the intubation on the monitor, with obvious edema of the left greater than right arytenoids, but vocal cords grossly looked normal, although that far anterior portion was not completely seen. Epiglottis was normal, no blood, no obvious tumor. CT neck, with contrast, was reviewed, showing definite soft tissue swelling in the area of the left arytenoid/piriform sinus, no obvious mass, no lymphadenopathy. ASSESSMENT: 1. Progressive upper airway obstruction, possible angioedema, less likely infection versus tumor. 2. Successful intubation by the anesthesiologist. PLAN: As discussed with Dr. Marroquin, continue routine medical therapy, presumably steroids, likely antibiotic coverage in addition. Extubate when deemed appropriate. Reasonable to follow up as an outpatient for flexible laryngoscopy to evaluate any underlying mass or other process missed in the acute setting. Dr. Marroquin agrees with the plan, understands, and is appreciative. Nani Morton - GRAHAM/dimple/mirna doc#: [id number]/job#: [id number] dd: 01/03/2019 13:05:00 dt: 01/04/2019 02:22:00 DICTATING MD/COPIES TO: David Rojas MD; Yassine Matias MD COPIES MNE: ROEL LLANOS
[2019-01-04] MEDS: ACETAMINOPHEN SUSP 650 MG/20.3 ML UDC TUBE ×3 (05:40→17:28)
[2019-01-04] MEDS: methylPREDNISolone 125 MG/2 ML VIAL 60 MG IV ×2 (05:45→21:02)
[2019-01-04] MEDS: INSULIN ASPART 100 UNIT/ML INSULN PEN SUBCUT ×3 (06:14→17:39)
[2019-01-04] MEDS: PROPOFOL 1,000 MG/100 ML VIAL 27.192 MG IV ×2 (08:10→13:46)
[2019-01-04] MEDS: fentaNYL 100 MCG/2 ML INJ IV (09:42)
[2019-01-04 09:57] LABS: Adenovirus Not Detected (Not Detect); Bordetella pertussis Not Detected (Not Detect); Chlamydophila pneumoniae Not Detected (Not Detect); Coronavirus 229E Not Detected (Not Detect); Coronavirus HKU1 Not Detected (Not Detect); Coronavirus NL 63 Not Detected (Not Detect); Coronavirus OC43 Not Detected (Not Detect); Human Metapneumovirus Not Detected (Not Detect); Human Rhinovirus/Enterovirus Not Detected (Not Detect); Influenza A Not Detected (Not Detect); Influenza B Not Detected (Not Detect); Mycoplasma pneumoniae Not Detected (Not Detect); Parainfluenza Virus 1 Not Detected (Not Detect); Parainfluenza Virus 2 Not Detected (Not Detect); Parainfluenza Virus 3 Not Detected (Not Detect); Parainfluenza Virus 4 Not Detected (Not Detect); Respiratory Syncytial Virus Not Detected (Not Detect)
--- NOTE | 2019-01-04 10:07 | DI.RAD.S_ITS ---
PROCEDURE: XR CHEST 1V INDICATIONS: change in resp status, intubation TECHNIQUE: One view of the chest was acquired. COMPARISON: [facility], CR, XR CHEST 1V, 01/03/2019, 14:24. FINDINGS: Surgical changes and devices: Tip of endotracheal tube projects approximately 2.9 cm above the lorraine. Nasogastric tube extends below the level of the diaphragm. Surgical clips in the right upper abdomen as before. Lungs and pleura: Stable lung aeration. Stable appearance of patchy retrocardiac opacities and scattered atelectasis. No focal consolidation. No pleural effusions or pneumothorax. Mediastinum: Mediastinal contours appear normal. Heart size is normal. Bones and chest wall: No suspicious bony lesions. Overlying soft tissues appear unremarkable. IMPRESSION: Stable examination of the chest without new acute airspace disease. Stable appearance of retrocardiac opacities and scattered atelectasis. Stable positioning of support equipment. Dictated by: Mehul Joseph M.D. on 01/04/2019 at 9:26 Approved by: Mehul Joseph M.D. on 01/04/2019 at 9:28
[2019-01-04 10:47] LABS: HCO3 ABG 18 mmol/L (22-26); PCO2 ABG 35.8 mmHg (35-45); PO2 ABG 75 mmHg (80-100); TCO2 ABG 19 mmol/L (21-31)
[2019-01-04 10:48] LABS: Fractionated Inspired Oxygen 60; Oxygen Saturation ABG 94 % (95-100); pH ABG 7.31 (7.35-7.45)
[2019-01-04] MEDS: fentaNYL 1,000 MCG in DEXTROSE 5% IN WATER 250 ML 15.649 ML IV (11:13)
[2019-01-04] MEDS: DEXAMETHASONE 10 MG/ML VIAL IV (11:19)
[2019-01-04] MEDS: DOCUSATE ORAL LIQUID 100 MG/10 ML UDC TUBE ×2 (11:22→20:50)
[2019-01-04] MEDS: FAMOTIDINE 20 MG/50 ML PIGGYBACK 200 MG IV (11:22)
--- NOTE | 2019-01-04 11:34 | CM.DANOTE ---
Patient is 73 year old female who was admitted on 01/03/19 for SOB, tongue swelling. Pt has [facility] for insurance and her PCP is Dr. Yassine Matias. EMR was reviewed. Per MD, pt was a difficult intubation due to swelling in the neck/throat and took the anesthesiologist to help with intubation. Pt currently vented and possible angioadema vs possible mass. SW met bedside with pt's 2 adult Dtrs and they share DPOA but oldest Dtr Monica is primary DPOA. Since pt is vented then Dtrs provided information. [place] [address] [facility] [address] [facility] [place] supportive friends and neighbors and is quite independent at baseline and drives (she drove herself to the ED). Pt does not have any other supportive services in place or needed and they deny any hx of HH or SNF. Both Dtrs live in [place] and fly up yesterday when they heard the pt was going to be admitted to the hospital. Both plan to stay bedside until the pt is discharged and at least one plans to stay for a few days to get the pt settled, hopefully back home. Plan: SW to follow closely once pt can be successfully extubated towards determining d/c planning needs and if pt will be safe for return home with Dtr assist for a couple days before return to [place]. RACHEL Galindo Discharge Planning/Care Management CM Discharge Assessment Start: 01/04/19 11:32 Freq: Status: Active Protocol: Document 01/04/19 11:32 BF (Rec: 01/04/19 11:34 [id number]) Discharge Planning Assessment Assigned Surfacer Operator AYLIN Kaufman DPGLADYS/Assigned Designee Name Dtr Monica Advance Directives? No History Provided By Family Member,Medical Record Has Patient been admitted in last 30 No days? Prior Living Arrangements House Household Members none Type of transporation used prior to Drives own vehicle admit Comment Home alone very independent at baseline Independent with ADL's Yes Is patient alert and oriented? Yes Caregiver for Another No Patient/Family Preference Home with Home Health Comment Waiting for pt to be successfully extubated and dx of symptoms Barriers to Discharge No Discharge Plan Home with Home Health Transportation Arrangement 2 Dtrs bedside and can provide transport if pt safe for d/c home Review Status In Process Please Provide Date Initial DC 01/04/19 Assessment Was Performed Next Review Type Continued Stay Review
--- NOTE | 2019-01-04 11:48 | P.PN_ITS ---
Subjective Subjective Date Patient Seen: 01/04/19 Interval history: Nani Morton is a 73-year-old female with a past medical history significant for hypertension, hyperlipidemia, diabetes mellitus type 2, insulin using, GERD, Crohn's disease, CKD stage III, who presented with shortness of breath and upper airway swelling and was subsequently intubated for airway protection due to angioedema. Interval history: Patient remained stable overnight without any acute events. She is lightly sedated on propofol and fentanyl boluses. The patient had an episode early this morning of desaturation to low 80s that seems to be anxiety/pain driven and a fentanyl gtt has been started for better pain control. ABG demonstrated pH 7.30, pCO2 35.8, PO2 75, H CO3 17.9 with SpO2 94% on FiO2 60%. Discussed care with sdc teacher Dr. De Dios at [facility] who agrees with current management including optimizing airway with IV steroids and antihistamines, discontinuation of SMITH-inhibitor, pain control and watchful waiting. Exam Vital Signs (past 8 hours): - 01/04/19 04:00 01/04/19 05:00 01/04/19 06:00 Temperature 96.6 F L Pulse Rate 56 L 90 53 L Respiratory Rate 15 14 15 Blood Pressure 103/50 L 137/77 98/43 L Pulse Oximetry 92 99 93 01/04/19 07:00 01/04/19 08:00 01/04/19 09:00 Temperature 97.8 F Pulse Rate 53 L 57 L 58 L Respiratory Rate 15 15 15 Blood Pressure 100/49 L 108/48 L 101/53 L Pulse Oximetry 93 93 93 01/04/19 10:00 01/04/19 11:00 Temperature Pulse Rate 67 61 Respiratory Rate 16 16 Blood Pressure 110/56 L 109/60 Pulse Oximetry 92 96 Fraction of Inspired Oxygen 35 Oxygen Delivery Method Mechanical Ventilation Oxygen Flow Rate 2 Narrative Exam Narrative: Ventilator settings: PRVC, RR 16, TV 350, peep 8, FiO2 60%. IV and Lines: 2 peripherals, OG draining bile, Choi catheter. General: Elderly female lying in bed and in no acute distress, intubated and mildly sedated, able to follow commands. HEENT: Normocephalic, atraumatic. External ears without defect. Pupils equal, round, and reactive to light. Anicteric sclerae, moist conjunctivae, and no lid lag. Endotracheal and OG tube in place. Neck: Left-sided lymphadenopathy and swelling. No jugular venous distension. No bruits. No thyromegaly. Cardiovascular: Regular rate and rhythm without murmurs, rubs, or gallops ap preciated. Pulmonary: Clear to auscultation bilaterally without crackles, wheezes, or rhonchi. Passive respirations on ventilator. Abdomen: Soft, obese, bowel sounds nontender, nondistended. No hepat osplenomegaly or masses appreciated. Genitourinary: Choi catheter in place. Extremities: No clubbing, cyanosis, or edema. Skin: Normal temperature, turgor, and texture; no rash, ulcers, or subcutaneous nodules appreciated. Objective Labs Result Diagrams: 01/04/19 13:10 01/04/19 13:10 Labs: Laboratory Results - last 24 hr 01/03/19 01/03/19 01/03/19 08:40 13:58 14:25 ESR 42 H ABG pH 7.35 ABG pCO2 32.8 L ABG pO2 89 ABG HCO3 18 L ABG Total CO2 19 L ABG O2 Saturation 97 ABG Base Excess -7.0 L FiO2 0.35 Nasal Screen MRSA (PCR) Negative for mrsa Chlamy pneumoniae PCR Adenovirus (PCR) B.parapertussis DNA PCR Coronavirus OC43 (PCR) Coronavirus HKU1 (PCR) Coronavirus 229E (PCR) Coronavirus NL63 (PCR) Human Metapneumovir PCR Influenza Type A (PCR) Influenza Type B (PCR) M. pneumoniae (PCR) Parainfluenza 1 (PCR) Parainfluenza 2 (PCR) Parainfluenza 3 (PCR) Parainfluenza 4 (PCR) RSV (PCR) Entero/Rhino (PCR) 01/04/19 01/04/19 08:40 10:18 ESR ABG pH 7.31 L ABG pCO2 35.8 ABG pO2 75 L ABG HCO3 18 L ABG Total CO2 19 L ABG O2 Saturation 94 L ABG Base Excess -8.0 L FiO2 60 Nasal Screen MRSA (PCR) Chlamy pneumoniae PCR Not detected Adenovirus (PCR) Not detected B.parapertussis DNA PCR Not detected Coronavirus OC43 (PCR) Not detected Coronavirus HKU1 (PCR) Not detected Coronavirus 229E (PCR) Not detected Coronavirus NL63 (PCR) Not detected Human Metapneumovir PCR Not detected Influenza Type A (PCR) Not detected Influenza Type B (PCR) Not detected M. pneumoniae (PCR) Not detected Parainfluenza 1 (PCR) Not detected Parainfluenza 2 (PCR) Not detected Parainfluenza 3 (PCR) Not detected Parainfluenza 4 (PCR) Not detected RSV (PCR) Not detected Entero/Rhino (PCR) Not detected Assessment & Plan Assessment & Plan narrative: Nani Morton is a 73-year-old female with a past medical history significant for hypertension, hyperlipidemia, diabetes mellitus type 2, insulin using, GERD, Crohn's disease, CKD stage III, who presented with shortness of breath and upper airway swelling and was subsequently intubated for airway protection due to angioedema. 1. Acute angioedema, present on admission. Active. -Patient has been on lisinopril for renal protection since at least 11/2017. No prior known angioedema or immune mediated events. Dose of lisinopril increased from 2.5 to 10 mg daily in 03/2018 and which reason is not entirely clear but possibly for increased blood pressure control. Angioedema may occur suddenly even though the drug has been tolerated for years. Angioedema without urticaria. -Etiology unclear and differential diagnosis includes: IgE mediated vs complement mediated vs hereditary. Will check C4 level, sed rate -CT soft tissue neck with contrast demonstrated focal and asymmetric left-sided soft tissue enlargement/mass at and just below the level of the vallecula with associated left-sided airway narrowing. Recommend ENT consultation and direct visualization as malignancy cannot be excluded. Infectious, inflammatory or drug related angioedema in the differential although would be unusual presentation given the asymmetric left-sided appearance. Please correlate clinically. -Discontinued lisinopril. -Recent upper respiratory tract illness, therefore, ordered respiratory PCR which is negative. -Continue supportive care with methylprednisolone 60 mg IV every 8 hours, Benadryl 25 mg IV every 6 hours, famotidine 20 mg every 12 hours, and loratadine 10 mg daily. -Discussed case with [facility] ICU sdc teacher, Dr. De Dios, who agrees with management and does not believe based on clinical exam -Consulted respiratory therapy for ventilator management. Continue current ventilator settings and daily ABG to adjust as needed. -Continue sedation with propofol and fentanyl gtt for sedation and daily sedation vacation. 2. Acute hypoxemic respiratory failure in the setting of airway obstruction, present on admission. Active. -Patient required anesthesiologist to be intubated due to difficult airway. -Consulted respiratory therapy for ventilator management. Continue current ventilator settings and daily ABG to adjust as needed. 3. Acute hypomagnesemia, not present on admission. Active. -Magnesium level 1.3. Ordered magnesium sulfate 4 g IV x 1. 4. Diabetes mellitus type 2, insulin using, present on admission. Stable. -Hemoglobin A1C 7.2 % indicative of good control. -Held metformin. -Continue lantus 20 units daily. -Continue every 6 hour blood glucose monitoring and low dose which will likely be elevated due to glucocorticoid use. 5. CKD III, chronic, present on admission. Stable. -Creatinine 1.3 which is at her baseline. -Avoid nephrotoxic agents. -Continue to trend renal function periodically. 6. Chrohn's disease, chronic, present on admission. Presumed stable. -Unclear status or history of medical treatment. 7. GERD, chronic, present on admission. Stable. -Continue famotidine twice daily. 8. Hyperlipidemia, chronic, present on admission. Stable. -Continue atorvastatin 20 mg daily at bedtime and aspirin 81 mg daily. 9. Hypertension, chronic, present on admission. Stable. -Discontinued lisinopril. BP low normal due to propofol. Once extubated will consider antihypertensive agents. Disposition: Patient continues on ventilator and will likely be extubated in next 24-48 hours depending on improvement in angioedema. Quality VTE Deep Vein Thrombosis/Pulmonary Embolism Present on Admission: No
[2019-01-04 13:16] LABS: Add Manual Diff / Slide Review NO; Basophils Absolute Auto 0 /uL (0-100); Basophils Percent Auto 0.2 % (0-2); Eosinophils Absolute Auto 0 /uL (0-450); Hematocrit 28.1 % (36-46); Hemoglobin 9.3 g/dL (12.0-16.0); Lymphocytes Absolute Auto 700 /uL (1100-4500); Lymphocytes Percent Auto 7.7 % (25-40); Mean Corpuscular HGB Conc 33.2 % (30-36); Mean Corpuscular Hemoglobin 27.3 PG (26-34); Mean Corpuscular Volume 82.1 fL (80-100); Monocytes Absolute Auto 200 /uL (0-900); Monocytes Percent Auto 1.8 % (3-14); Neutrophils Absolute Auto 8700 /uL (1500-7000); Neutrophils Percent Auto 90.3 % (50-75); Platelet Count 202 X10^3/uL (150-400); Red Blood Cell Count 3.43 X10^6/uL (4.0-5.2); Red Cell Distribution Width 15.3 % (11.6-14.8); White Blood Cell Count 9.6 X10^3/uL (4.5-11.0)
[2019-01-04 13:25] LABS: Magnesium 1.3 mg/dL (1.6-2.3)
[2019-01-04 13:26] LABS: Alanine Aminotransferase 18 IU/L (9-52); Albumin 3.5 g/dL (3.5-5.0); Albumin Globulin Ratio 1.3 (1.0-2.8); Alkaline Phosphatase 54 U/L (38-126); Aspartate Aminotransferase 21 IU/L (14-36); BUN Creatinine Ratio 20.8 (6-22); Bilirubin Total 0.2 mg/dL (0.2-1.3); Blood Urea Nitrogen 27 mg/dL (7-17); Carbon Dioxide 19 mmol/L (22-32); Chloride 110 mmol/L (98-107); Estimated Glomerular Filt Rate 40.3 mL/min (>60); Globulin 2.8 g/dL (1.7-4.1); Glucose 266 mg/dL (80-110); HEMOLYSIS < 15 (0-50); Potassium 4.1 mmol/L (3.4-5.1); Sodium 141 mmol/L (137-145); Total Protein 6.3 g/dL (6.3-8.2)
[2019-01-04] MEDS: diphenhydrAMINE 50 MG/ML VIAL 25 MG IV ×2 (13:43→17:29)
[2019-01-04 13:46] LABS: Procalcitonin 0.13 ng/mL (<0.5)
[2019-01-04] MEDS: HEPARIN 5,000 UNIT/ML VIAL 5000 UNIT SUBCUT ×2 (13:59→20:50)
[2019-01-04 14:50] LABS: Hemoglobin A1C% w Est Avg Glu 7.2 % (4.0-6.0)
[2019-01-04] MEDS: LORATADINE 10 MG TABLET PO (14:50)
[2019-01-04] MEDS: MAGNESIUM SULFATE 4 GM/100 ML PIGGYBACK IV (15:09)
--- NOTE | 2019-01-04 15:19 | PC.NURSE ---
pt on 50% fio2 per ventilator at this time- did have spontaneous desaturation this am but this was thought to be r/t anxiety- ns continues to infuse at 100cc/h , magnesium replacement at present and ogt to lis- bilat wrist restraints in place and supportive family at bedside
[2019-01-04] MEDS: PROPOFOL 1,000 MG/100 ML VIAL 19.776 MG IV ×2 (15:44→20:39)
[2019-01-04 16:41] LABS: HCO3 ABG 17 mmol/L (22-26); PCO2 ABG 32.3 mmHg (35-45); PO2 ABG 85 mmHg (80-100); TCO2 ABG 18 mmol/L (21-31); pH ABG 7.33 (7.35-7.45)
[2019-01-04 16:42] LABS: Fractionated Inspired Oxygen 50; Oxygen Saturation ABG 96 % (95-100)
[2019-01-04] MEDS: ATORVASTATIN 20 MG TABLET TUBE (17:28)
[2019-01-04] MEDS: INSULIN GLARGINE 100 UNIT/ML 3ML PEN 20 UNIT SUBCUT (20:55)
[2019-01-04] MEDS: SODIUM CHLORIDE 0.9% 1,000 ML 50 ML IV (22:38)
[2019-01-05] VITALS (26 sets, daily range): BP systolic 101–183; BP diastolic 55–90; PULSE 50–76; RESP 12–21; TEMP 36.2–36.8; O2SAT 93–97
[2019-01-05] MEDS: fentaNYL 1,000 MCG in DEXTROSE 5% IN WATER 250 ML 22.356 ML IV (00:09)
[2019-01-05] MEDS: ACETAMINOPHEN SUSP 650 MG/20.3 ML UDC TUBE ×2 (00:11→06:10)
[2019-01-05] MEDS: diphenhydrAMINE 50 MG/ML VIAL 25 MG IV ×2 (00:11→06:12)
[2019-01-05] MEDS: FAMOTIDINE 20 MG/50 ML PIGGYBACK 200 MG IV ×2 (00:13→13:40)
[2019-01-05] MEDS: INSULIN ASPART 100 UNIT/ML INSULN PEN SUBCUT ×5 (00:16→20:07)
[2019-01-05] MEDS: fentaNYL 100 MCG/2 ML INJ 800 MCG (00:21)
[2019-01-05] MEDS: PROPOFOL 1,000 MG/100 ML VIAL 19.776 MG IV ×2 (01:58→05:50)
[2019-01-05 05:37] LABS: Add Manual Diff / Slide Review NO; Basophils Absolute Auto 0 /uL (0-100); Basophils Percent Auto 0.1 % (0-2); Eosinophils Absolute Auto 0 /uL (0-450); Hematocrit 28.8 % (36-46); Hemoglobin 9.5 g/dL (12.0-16.0); Lymphocytes Absolute Auto 500 /uL (1100-4500); Lymphocytes Percent Auto 5.9 % (25-40); Mean Corpuscular Hemoglobin 26.9 PG (26-34); Mean Corpuscular Volume 81.4 fL (80-100); Monocytes Absolute Auto 300 /uL (0-900); Monocytes Percent Auto 3.1 % (3-14); Neutrophils Absolute Auto 8300 /uL (1500-7000); Neutrophils Percent Auto 90.9 % (50-75); Platelet Count 228 X10^3/uL (150-400); Red Blood Cell Count 3.55 X10^6/uL (4.0-5.2); Red Cell Distribution Width 15.6 % (11.6-14.8); White Blood Cell Count 9.2 X10^3/uL (4.5-11.0)
[2019-01-05 05:49] LABS: Alanine Aminotransferase 19 IU/L (9-52); Albumin 3.5 g/dL (3.5-5.0); Albumin Globulin Ratio 1.3 (1.0-2.8); Alkaline Phosphatase 55 U/L (38-126); Aspartate Aminotransferase 21 IU/L (14-36); BUN Creatinine Ratio 21.7 (6-22); Bilirubin Total 0.2 mg/dL (0.2-1.3); Blood Urea Nitrogen 26 mg/dL (7-17); Carbon Dioxide 18 mmol/L (22-32); Chloride 110 mmol/L (98-107); Estimated Glomerular Filt Rate 44.2 mL/min (>60); Globulin 2.8 g/dL (1.7-4.1); Glucose 271 mg/dL (80-110); HEMOLYSIS < 15 (0-50); Potassium 4.3 mmol/L (3.4-5.1); Sodium 140 mmol/L (137-145); Total Protein 6.3 g/dL (6.3-8.2)
[2019-01-05 06:04] LABS: Procalcitonin 0.07 ng/mL (<0.5)
[2019-01-05] MEDS: methylPREDNISolone 125 MG/2 ML VIAL 60 MG IV ×2 (06:09→14:11)
[2019-01-05 06:20] LABS: TSH w/ Reflex to FT4 0.08 uIU/mL (0.47-4.68)
[2019-01-05 06:47] LABS: Free T4, Direct Thyroxine 1.52 ng/dL (0.78-2.19)
[2019-01-05] MEDS: DOCUSATE ORAL LIQUID 100 MG/10 ML UDC TUBE (08:35)
[2019-01-05] MEDS: HEPARIN 5,000 UNIT/ML VIAL 5000 UNIT SUBCUT ×2 (08:35→21:44)
[2019-01-05] MEDS: LORATADINE 10 MG TABLET PO (08:36)
[2019-01-05] MEDS: ASPIRIN 81 MG CHEW TAB TUBE (08:36)
[2019-01-05] MEDS: fentaNYL 1,000 MCG in DEXTROSE 5% IN WATER 250 ML 44.712 ML IV (10:19)
--- NOTE | 2019-01-05 10:35 | CM.DANOTE ---
Pt. currently intubated - secondary to angioadema- so unable to assess. Nurse Maddi seems to think that she will be able to return home without need upon d/c from hospital due to previously active/independent lifestyle. Very active support system. Will need further verification after extubation.
--- NOTE | 2019-01-05 11:16 | PM.CN ---
History of Present Illness Consult details Date Patient Seen: 01/05/19 Time Patient Seen: 11:17 Chief complaint: SOB, tongue swelling Reason for consult: Hospitalist wanted me immediately available in case emergent reintubation Requesting provider: Michelle Lomeli Narrative: Cuff leak detected around ETT. Pt breathing spontaneously. She is alert and following commands Pulling good tidal volumes on the vent. [facility] Medical History Abnormal Pap smear of cervix (Resolved) Crohn's disease (Chronic) Diabetes mellitus (Chronic) Duodenal ulcer (Chronic) GERD (gastroesophageal reflux disease) (Chronic) Hyperlipidemia (Chronic) Surgical History History of left oophorectomy (Resolved) Status post cone biopsy of cervix (Resolved) Status post laparoscopic cholecystectomy (Resolved) Family History Father Diabetes mellitus Social History household members: none Smoking Status: Former smoker Family History Father Diabetes mellitus Social History household members: none Smoking Status: Former smoker Meds Home Medications and Allergies Home Medications Medication Instructions Recorded Confirmed Type curcumin 1 dose PO DAILY 12/11/17 04/10/18 History insulin syringe-needle U-100 0.3 #500 each 12/11/17 01/03/19 Rx mL 29 gauge x 1/2 aspirin 81 mg tablet,delayed 81 mg PO DAILY #30 tab 04/10/18 01/03/19 Rx release insulin glargine 100) 100 unit/mL 20 unit SUBCUT DAILY #10 ml 09/24/18 Rx subcutaneous solution lisinopril 10 mg tablet 10 mg PO DAILY #90 tab 09/24/18 01/03/19 Rx atorvastatin 20 mg tablet 20 mg PO QPM #90 tab 10/01/18 01/03/19 Rx metformin 1,000 mg tablet 1,000 mg PO BID #180 tab 10/01/18 01/03/19 Rx zolpidem 5 mg tablet 5 mg PO BEDTIME PRN #15 tab 10/01/18 Rx Glucose: Test Strips #1 ea 11/21/18 01/03/19 Rx Glucose: Home Monitor 0 dev TOPICAL TID 01/03/19 01/03/19 History omeprazole 20 mg PO DAILY 01/03/19 01/03/19 History Allergies Allergy/AdvReac Type Severity Reaction Status Date / Time lisinopril Allergy Severe Swelling Verified 01/03/19 15:32 of Lip/Tongue/Throat Review of Systems Review of Systems ROS Unobtainable: All systems reviewed & are unremarkable except as noted in HPI and below and due to endotracheal tube Exam Vital Signs (past 8 hours): - 01/05/19 04:00 01/05/19 05:00 01/05/19 06:00 Temperature 97.3 F L Pulse Rate 53 L 52 L 51 L Respiratory Rate 16 16 16 Blood Pressure 125/74 127/72 131/74 Pulse Oximetry 95 95 96 01/05/19 07:00 01/05/19 08:00 01/05/19 10:03 Temperature 97.1 F L Pulse Rate 52 L 51 L 52 L Respiratory Rate 16 16 16 Blood Pressure 117/59 L 117/61 139/69 Pulse Oximetry 96 95 94 Fraction of Inspired Oxygen 45 Oxygen Delivery Method Mechanical Ventilation Oxygen Flow Rate 2 Narrative Exam Narrative: opens eyes to command. HENMT Head: normal to inspection Throat: peritonsillar mass Chest Chest: normal inspection of the chest Resp Effort & Inspection: normal respiratory effort Auscultation: clear to auscultation bilaterally Other: no stridor evident Cardio Other: RRR. Sinus rhythm Objective Labs Result Diagrams: 01/05/19 05:10 01/05/19 05:10 Labs: Laboratory Results - last 24 hr 01/04/19 01/04/19 01/04/19 13:10 13:10 13:10 WBC 9.6 RBC 3.43 L Hgb 9.3 L Hct 28.1 L MCV 82.1 MCH 27.3 MCHC 33.2 RDW 15.3 H Plt Count 202 Neut % (Auto) 90.3 H Lymph % (Auto) 7.7 L [place] % (Auto) 1.8 L Eos % (Auto) 0.0 L Baso % (Auto) 0.2 Neut # (Auto) 8700 H Lymph # (Auto) 700 L [place] # (Auto) 200 Eos # (Auto) 0 Baso # (Auto) 0 ABG pH ABG pCO2 ABG pO2 ABG HCO3 ABG Total CO2 ABG O2 Saturation ABG Base Excess FiO2 Sodium 141 Potassium 4.1 Chloride 110 H Carbon Dioxide 19 L BUN 27 H Creatinine 1.30 H Estimated GFR 40.3 L BUN/Creatinine Ratio 20.8 Glucose 266 H D Hemoglobin A1c Calcium 8.0 L Magnesium Total Bilirubin 0.2 AST 21 ALT 18 Alkaline Phosphatase 54 Total Protein 6.3 Albumin 3.5 Globulin 2.8 Albumin/Globulin Ratio 1.3 Procalcitonin 0.13 TSH Free T4 01/04/19 01/04/19 01/04/19 13:10 13:10 16:18 WBC RBC Hgb Hct MCV MCH MCHC RDW Plt Count Neut % (Auto) Lymph % (Auto) [place] % (Auto) Eos % (Auto) Baso % (Auto) Neut # (Auto) Lymph # (Auto) [place] # (Auto) Eos # (Auto) Baso # (Auto) ABG pH 7.33 L ABG pCO2 32.3 L ABG pO2 85 ABG HCO3 17 L ABG Total CO2 18 L ABG O2 Saturation 96 ABG Base Excess -9.0 L FiO2 50 Sodium Potassium Chloride Carbon Dioxide BUN Creatinine Estimated GFR BUN/Creatinine Ratio Glucose Hemoglobin A1c 7.2 H Calcium Magnesium 1.3 L Total Bilirubin AST ALT Alkaline Phosphatase Total Protein Albumin Globulin Albumin/Globulin Ratio Procalcitonin TSH Free T4 01/05/19 01/05/19 01/05/19 05:10 05:10 05:10 WBC 9.2 RBC 3.55 L Hgb 9.5 L Hct 28.8 L MCV 81.4 MCH 26.9 MCHC 33.0 RDW 15.6 H Plt Count 228 Neut % (Auto) 90.9 H Lymph % (Auto) 5.9 L [place] % (Auto) 3.1 Eos % (Auto) 0.0 L Baso % (Auto) 0.1 Neut # (Auto) 8300 H Lymph # (Auto) 500 L [place] # (Auto) 300 Eos # (Auto) 0 Baso # (Auto) 0 ABG pH ABG pCO2 ABG pO2 ABG HCO3 ABG Total CO2 ABG O2 Saturation ABG Base Excess FiO2 Sodium 140 Potassium 4.3 Chloride 110 H Carbon Dioxide 18 L BUN 26 H Creatinine 1.20 H Estimated GFR 44.2 L BUN/Creatinine Ratio 21.7 Glucose 271 H Hemoglobin A1c Calcium 8.0 L Magnesium Total Bilirubin 0.2 AST 21 ALT 19 Alkaline Phosphatase 55 Total Protein 6.3 Albumin 3.5 Globulin 2.8 Albumin/Globulin Ratio 1.3 Procalcitonin 0.07 TSH Free T4 01/05/19 05:10 WBC RBC Hgb Hct MCV MCH MCHC RDW Plt Count Neut % (Auto) Lymph % (Auto) [place] % (Auto) Eos % (Auto) Baso % (Auto) Neut # (Auto) Lymph # (Auto) [place] # (Auto) Eos # (Auto) Baso # (Auto) ABG pH ABG pCO2 ABG pO2 ABG HCO3 ABG Total CO2 ABG O2 Saturation ABG Base Excess FiO2 Sodium Potassium Chloride Carbon Dioxide BUN Creatinine Estimated GFR BUN/Creatinine Ratio Glucose Hemoglobin A1c Calcium Magnesium Total Bilirubin AST ALT Alkaline Phosphatase Total Protein Albumin Globulin Albumin/Globulin Ratio Procalcitonin TSH 0.08 L Free T4 1.52 Assessment & Plan Assessment & Plan narrative: Assessment: Upper airway swelling that required emergent in the ER a few days ago by one of my anesthesia colleagues. Since then she has been treated with steroids with some resolution of her initial swelling. She still has some residual swelling on one side of the pharynx. Plan: ETT was pulled. I remained present until the patient was comfortable and able to interact with me. I could not detect any stridor and her lungs sound clear. She is just barely able to phonate but this appears to be getting better even within a few minutes of extubation. I believe it was appropriate to extubate at this point. I will be available if the situation gets worse but I believe she will continue to improve from this point forward. Time Spent With Patient Time with patient: 25 - 35 minutes
--- NOTE | 2019-01-05 11:25 | RT ---
PT EXTUBATED TO RA PER VERBAL ORDER BY DR. GUERRIER. DR. GUERRIER PRESENT DURING PROCEDURE. O2 SAT ON RA NOTED AT 97%. NO STRIDOR NOTED POST EXTUBATION. BREATH SOUNDS ARE CLEAR. RR = 14.
--- NOTE | 2019-01-05 12:55 | P.PN_ITS ---
Subjective Subjective Date Patient Seen: 01/05/19 Interval history: Nani Morton is a 73-year-old female with a past medical history significant for hypertension, hyperlipidemia, diabetes mellitus type 2, insulin using, GERD, Crohn's disease, CKD stage III, who presented with shortness of breath and upper airway swelling and was subsequently intubated for airway protection due to angioedema. Interval history: No acute events overnight. She is stable on the ventilator this morning at minimal ventilator settings with PRVC, TV 350, RR 16, peep 8, and FiO2 35%. Turned off sedation and performed spontaneous breathing trial with setting 8/5 and patient pulling good tidal volumes and she was awake and following commands. Patient had good cuff leak. Anesthesiology was contacted as the patient was felt to be extubatable. Had lice cope, intubation kit, and medications necessary in case patient needed to be reintubated. Patient successfully extubated and satting well on room air. No stridor. Exam Vital Signs (past 8 hours): - 01/05/19 11:00 01/05/19 12:47 01/05/19 14:00 Temperature Pulse Rate 69 69 67 Respiratory Rate 12 13 19 Blood Pressure 139/74 154/82 H 150/59 H Pulse Oximetry 97 95 96 01/05/19 16:00 Temperature 97.5 F L Pulse Rate 66 Respiratory Rate 12 Blood Pressure 142/62 H Pulse Oximetry 97 Fraction of Inspired Oxygen 45 Oxygen Delivery Method Mechanical Ventilation Oxygen Flow Rate 0 Narrative Exam Narrative: Ventilator settings: PRVC, RR 16, TV 350, peep 8, FiO2 35%. IV and Lines: 2 peripherals, OG draining bile, Choi catheter. General: Elderly female lying in bed and in no acute distress, intubated, awake and alert, able to follow commands. HEENT: Normocephalic, atraumatic. External ears without defect. Pupils equal, round, and reactive to light. Anicteric sclerae, moist conjunctivae, and no lid lag. Endotracheal and OG tube in place. Neck: Left-sided lymphadenopathy and swelling. No jugular venous distension. No bruits. No thyromegaly. Cardiovascular: Regular rate and rhythm without murmurs, rubs, or gallops appreciated. Pulmonary: Clear to auscultation bilaterally without crackles, wheezes, or rhonchi. Passive respirations on ventilator. Abdomen: Soft, obese, bowel sounds nontender, nondistended. No hepatosplenomegaly or masses appreciated. Genitourinary: Choi catheter in place. Extremities: No clubbing, cyanosis, or edema. Skin: Normal temperature, turgor, and texture; no rash, ulcers, or subcutaneous nodules appreciated. Objective Labs Result Diagrams: 01/05/19 05:10 01/05/19 05:10 Labs: Laboratory Results - last 24 hr 01/05/19 01/05/19 01/05/19 05:10 05:10 05:10 WBC 9.2 RBC 3.55 L Hgb 9.5 L Hct 28.8 L MCV 81.4 MCH 26.9 MCHC 33.0 RDW 15.6 H Plt Count 228 Neut % (Auto) 90.9 H Lymph % (Auto) 5.9 L [place] % (Auto) 3.1 Eos % (Auto) 0.0 L Baso % (Auto) 0.1 Neut # (Auto) 8300 H Lymph # (Auto) 500 L [place] # (Auto) 300 Eos # (Auto) 0 Baso # (Auto) 0 Sodium 140 Potassium 4.3 Chloride 110 H Carbon Dioxide 18 L BUN 26 H Creatinine 1.20 H Estimated GFR 44.2 L BUN/Creatinine Ratio 21.7 Glucose 271 H Calcium 8.0 L Total Bilirubin 0.2 AST 21 ALT 19 Alkaline Phosphatase 55 Total Protein 6.3 Albumin 3.5 Globulin 2.8 Albumin/Globulin Ratio 1.3 Procalcitonin 0.07 TSH Free T4 01/05/19 05:10 WBC RBC Hgb Hct MCV MCH MCHC RDW Plt Count Neut % (Auto) Lymph % (Auto) [place] % (Auto) Eos % (Auto) Baso % (Auto) Neut # (Auto) Lymph # (Auto) [place] # (Auto) Eos # (Auto) Baso # (Auto) Sodium Potassium Chloride Carbon Dioxide BUN Creatinine Estimated GFR BUN/Creatinine Ratio Glucose Calcium Total Bilirubin AST ALT Alkaline Phosphatase Total Protein Albumin Globulin Albumin/Globulin Ratio Procalcitonin TSH 0.08 L Free T4 1.52 Assessment & Plan Assessment & Plan narrative: Nani Morton is a 73-year-old female with a past medical history significant for hypertension, hyperlipidemia, diabetes mellitus type 2, insulin using, GERD, Crohn's disease, CKD stage III, who presented with shortness of breath and upper airway swelling and was subsequently intubated for airway protection due to angioedema. 1. Acute angioedema, present on admission. Improving. -Patient has been on lisinopril for renal protection since at least 11/2017. No prior known angioedema or immune mediated events. Dose of lisinopril increased from 2.5 to 10 mg daily in 03/2018 and which reason is not entirely clear but possibly for increased blood pressure control. Angioedema may occur suddenly even though the drug has been tolerated for years. Angioedema without urticaria. -Etiology unclear and differential diagnosis includes: IgE mediated vs complement mediated vs hereditary. Will check C4 level, sed rate -CT soft tissue neck with contrast demonstrated focal and asymmetric left-sided soft tissue enlargement/mass at and just below the level of the vallecula with associated left-sided airway narrowing. Recommend ENT consultation and direct visualization as malignancy cannot be excluded. Infectious, inflammatory or drug related angioedema in the differential although would be unusual presentation given the asymmetric left-sided appearance. Please correlate clinically. -Discontinued lisinopril. -Recent upper respiratory tract illness, therefore, ordered respiratory PCR which was negative. -Consulted [facility] electrical systems design engineer over the phone, Dr. De Dios, who agreed with the [facility] ent management and believes patient will likely be able to be extubated the next 24-48 hours. -Continue supportive care with methylprednisolone 60 mg IV every 8 hours, Benadryl 25 mg IV every 6 hours, famotidine 20 mg every 12 hours, and loratadine 10 mg daily. -Consulted respiratory therapy for ventilator management and continued current ventilator settings as above until successfully extubated this morning. May use supplemental oxygen as necessary to maintain oxygen saturation 88-92%. -Continue sedation with propofol and fentanyl gtt for sedation and daily sedation vacation. 2. Acute hypoxemic respiratory failure in the setting of airway obstruction, present on admission. Resolved. -Patient required anesthesiologist to be intubated due to difficult airway. Patient now status post successful extubation. -Consulted respiratory therapy for ventilator management and continued current v entilator settings as above until successfully extubated this morning. May use supplemental oxygen as necessary to maintain oxygen saturation 88-92%. 3. Acute hypomagnesemia, not present on admission. Resolved. -Magnesium level 1.3. Ordered magnesium sulfate 4 g IV x 1. 4. Diabetes mellitus type 2, insulin using, present on admission. Stable. -Hemoglobin A1C 7.2 % indicative of good control. -Held metformin. -Continue lantus 20 units daily. -Continue every 6 hour blood glucose monitoring and low dose which will likely be elevated due to glucocorticoid use. 5. CKD III, chronic, present on admission. Stable. -Creatinine 1.3 which is at her baseline. -Avoid nephrotoxic agents. -Continue to trend renal function periodically. 6. Chrohn's disease, chronic, present on admission. Presumed stable. -Unclear status or history of medical treatment. 7. GERD, chronic, present on admission. Stable. -Continue famotidine twice daily. 8. Hyperlipidemia, chronic, present on admission. Stable. -Continue atorvastatin 20 mg daily at bedtime and aspirin 81 mg daily. 9. Hypertension, chronic, present on admission. Stable. -Discontinued lisinopril. BP low normal due to propofol. Once extubated will consider antihypertensive agents if hypertensive. Disposition: Patient successfully extubated and depending on improvement in angioedema and overall status will likely discharge home vs. SNF in 1-2 days. Quality VTE Deep Vein Thrombosis/Pulmonary Embolism Present on Admission: No
--- NOTE | 2019-01-05 15:18 | PC.NURSE ---
pt extubated at 1111 this am to room air and spo2 93-98%, saline lock x 2 - no diet orders as of yet but taking few ice chips for comfort and moisture- andrew sharpe
[2019-01-05] MEDS: ATORVASTATIN 20 MG TABLET TUBE (17:39)
--- NOTE | 2019-01-05 19:54 | PC.NURSE ---
Addendum entered by Carrie Griffin R.N. 01/05/19 22:24: Patient now resting peacefully in bed. States that vision is a little better. Blood pressure now 146/66. Addendum entered by Carrie Griffin R.N. 01/05/19 21:23: Nurse practitioner ordered stat head CT. Code stroke initiated (see paper chart for record). CT done and results seen by nurse practitioner. EKG currently being completed. Patient resting peacefully back in bed. States she still is seeing some halos. Blood pressure now 168/90. Had some difficulty word finding while nurse practitioner was assessing her NIH, but is now conversing regularly with family and staff. Original Note: 1943 - Patient complained of some dizziness and blurry vision. Also stated that her bladder felt full. Blood pressure checked and Choi catheter inspected. Choi possibly had air leak as patient stated that she felt relieved after moving the tubing around. Draining clear, yellow urine. Blood pressure noted to be 175/79. Dr. Lomeli updated on symptoms. See order for labetalol PRN. Also stated to have night nurse practitioner assess patient. 1957 - Patient now noted to have blood pressure of 162/84. States her dizziness is better, but her double vision is still present. Nurse practitioner updated and is now assessing patient
--- NOTE | 2019-01-05 20:29 | DI.CT.S_ITS ---
PROCEDURE: CT HEAD/BRAIN WO CON INDICATIONS: new double vision, dizziness, TECHNIQUE: Noncontrast 4.5 mm thick angled axial sections acquired from the foramen magnum to the vertex, with coronal and sagittal reformats. For radiation dose reduction, the following was used: automated exposure control, adjustment of mA and/or kV according to patient size. COMPARISON: None. FINDINGS: Image quality: Excellent. CSF spaces: Basal cisterns are patent. No extra-axial fluid collections. The ventricles are symmetric in size and shape. Brain: No intracranial bleeds or masses. There is cerebral volume loss for age, with resultant ventricular and sulcal prominence. There are periventricular and deep white matter chronic small vessel ischemic changes. There is intracranial internal carotid artery atherosclerosis. Skull and face: Calvarium and visualized facial bones appear intact, without suspicious lesions. Sinuses: Visualized sinuses and mastoids are clear. IMPRESSION: Unremarkable intracranial study for age, without an acute abnormality identified. The patient's new symptoms are not explained on this head CT. Dictated by: Michele Rodrigues M.D. on 01/05/2019 at 21:11 Approved by: Michele Rodrigues M.D. on 01/05/2019 at 21:12
[2019-01-05] MEDS: INSULIN GLARGINE 100 UNIT/ML 3ML PEN 20 UNIT SUBCUT (21:44)
[2019-01-06] VITALS: BP 134/60; PULSE 57; RESP 17; TEMP 36.6; O2SAT 95
[2019-01-06] MEDS: ACETAMINOPHEN SUSP 650 MG/20.3 ML UDC TUBE (00:27)
[2019-01-06] MEDS: FAMOTIDINE 20 MG/50 ML PIGGYBACK 200 MG IV (00:28)
--- NOTE | 2019-01-06 01:19 | PM.EVENT ---
Event Note Date Patient Seen: 01/05/19 Time Patient Seen: 21:50 Event Note: Sometime between 7:30 and 8 pm notified by nursing staff that patient is having new onset of double vision. Patient was seen at bedside. She was admitted for angioedema and was successfully extubated earlier in the day. Patient states that she is having double vision and blurriness. Associated symptoms include a mild headache and a breast episode of dizziness. On initial appearance patient seems highly anxious. Denies chest pain, palpitations, dyspnea, abdominal pain or nausea. She has received insulin earlier, but it was long-acting. BP is at its peak, at the time ranging 175-183 systolic. She is not having any symptoms of respiratory distress or stridor. Blood sugar was checked, it was elevated in the 200 range and was treated with short-acting insulin. Patient was revaluated in half an hour. She reported feeling better however double vision, which she now describes as halos has persisted. Decided to pursue with head CT. Attempted to do a complete stroke scale with the patient. While reading she was noted to have slow stuttering speech, she appeared to like understanding of all was being asked when naming items, she did name the items correctly but had difficulty with word finding. For this reason code stroke was initiated. CT of the head was unremarkable for acute intracranial findings. Upon return patient noted to be feeling better. Her blood pressure improved, however alteration in vision persisted. 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 Not entirely clear what could be causing patient's symptoms. Potentially consider MRI of the head in the morning. It is questionable if patient would meet criteria for tPA if needed, ie she has received heparin in the past 48 hours, however her aPTT levels not known. We will need to clarify if patient would still not be a candidate if aPTT was normal, S criteria specifically notes receiving heparin within 48 hours AND has an elevated APTT. Otherwise patient does not have any symptoms of an acute bleed. Will continue to monitor patient closely. I will hold her dose of steroid tonight out of concern that it may be a potential stressor exacerbating her symptoms.
[2019-01-06 02:00] VITALS: BP 120/56; PULSE 57; RESP 19; O2SAT 92
[2019-01-06 04:00] VITALS: BP 126/60; PULSE 57; RESP 18; O2SAT 94
[2019-01-06 04:30] VITALS: TEMP 37.2
[2019-01-06 04:45] LABS: Add Manual Diff / Slide Review NO; Basophils Absolute Auto 0 /uL (0-100); Basophils Percent Auto 0.1 % (0-2); Eosinophils Absolute Auto 0 /uL (0-450); Hematocrit 28.3 % (36-46); Hemoglobin 9.3 g/dL (12.0-16.0); Lymphocytes Absolute Auto 900 /uL (1100-4500); Lymphocytes Percent Auto 7.7 % (25-40); Mean Corpuscular HGB Conc 32.7 % (30-36); Mean Corpuscular Hemoglobin 26.9 PG (26-34); Mean Corpuscular Volume 82.1 fL (80-100); Monocytes Absolute Auto 700 /uL (0-900); Monocytes Percent Auto 5.7 % (3-14); Neutrophils Absolute Auto 9800 /uL (1500-7000); Neutrophils Percent Auto 86.5 % (50-75); Platelet Count 222 X10^3/uL (150-400); Red Blood Cell Count 3.44 X10^6/uL (4.0-5.2); Red Cell Distribution Width 15.6 % (11.6-14.8); White Blood Cell Count 11.4 X10^3/uL (4.5-11.0)
[2019-01-06 04:52] LABS: BUN Creatinine Ratio 25.8 (6-22); Blood Urea Nitrogen 31 mg/dL (7-17); Calcium 8.2 mg/dL (8.4-10.2); Carbon Dioxide 22 mmol/L (22-32); Chloride 111 mmol/L (98-107); Cholesterol 133 mg/dL (140-199); Estimated Glomerular Filt Rate 44.2 mL/min (>60); Glucose 150 mg/dL (80-110); HDL Cholesterol 55 mg/dL (40-60); HEMOLYSIS < 15 (0-50); LDL Cholesterol Calculated 45 mg/dL (<100); Magnesium 2.4 mg/dL (1.6-2.3); Potassium 4.1 mmol/L (3.4-5.1); Sodium 140 mmol/L (137-145); Triglycerides 167 mg/dL (35-150)
[2019-01-06 06:00] VITALS: BP 131/73; PULSE 53; RESP 19; O2SAT 95
[2019-01-06] MEDS: methylPREDNISolone 125 MG/2 ML VIAL 60 MG IV (06:15)
[2019-01-06] MEDS: SODIUM CHLORIDE 0.9% FLUSH 10 ML IV (06:18)
--- NOTE | 2019-01-06 07:49 | DI.MRI.S_ITS ---
PROCEDURE: MR STROKE Pre- and post-contrast brain MRI, non-contrast brain MR angiogram, pre- and postcontrast neck MR angiogram INDICATIONS: Vision change, expressive aphasia, dizziness TECHNIQUE: Brain: Noncontrast axial T1 spin echo, axial T2 fast spin echo, sagittal and axial FLAIR, coronal T2 fast spin echo, axial gradient echo, axial diffusion and ADC through the brain. After the administration of contrast, axial 3D VIBE of the cranial vasculature and brain. Brain MRA: Non-contrast 3-D time of flight MR angiogram, with multiple dcklcwu-xslkauinb-xkrbjozyoq (MIP) reformats performed. Neck MRA: Axial and sagittal TruFISP through the neck. Coronal dynamic MR angiogram during administration of contrast in the arterial and venous phases, with 3-dimenstional ufvrwgs-ybvylfodk-yilntjyyqi (MIP) reformats constructed from subtraction images. COMPARISON: [facility], MR, MR ORBITS FACE NECK WO CON, 01/06/2019, 10:47. [facility], CT, CT HEAD/BRAIN WO CON, 01/05/2019, 21:02. [facility], CT, CT SOFT TISSUE NECK W CON, 01/03/2019, 9:26. [facility], RG, MRI HEAD W/WO CONTRAST, 10/16/2005, 12:14. FINDINGS: Image quality: Excellent. BRAIN: CSF spaces: Ventricles are normal in size and shape. Basal cisterns are patent. No extra-axial fluid collections. Brain: No intracranial bleeds or mass effects. Kern-white matter interface is normal. Diffusion weighted images show no acute ischemic insults. Brainstem appears normal. Normal intravascular flow voids are present. No abnormal intracranial enhancement. Skull and face: Calvarial marrow signal is normal. Orbits appear normal. Sinuses: Mucosal thickening is seen within the paranasal sinuses are moderate abnormal mastoid air cell fluid can be seen, left worse than right. BRAIN MR ANGIOGRAM: Anterior circulation: Intracranial internal carotid arteries are normal in size and enhancement. The flow within the paired anterior cerebral arteries is normal and symmetric. Note is made of an early branch of the left anterior cerebral artery. The flow within the middle cerebral arteries is normal and symmetric. The anterior communicating artery is not well seen. No stenoses, occlusions, or aneurysms. Posterior circulation: The visualized portions of the vertebral arteries demonstrate normal caliber, and join to form a normal appearing basilar artery. The flow within the posterior cerebral arteries is normal and symmetric. No stenoses, occlusions, or aneurysms. NECK MR ANGIOGRAM: Carotids: The great vessels are not well-seen. No significant abnormality of the great vessels can be seen. The origins of the common carotid arteries appear patent. The calibers and courses of both common carotid arteries are normal. The bifurcation regions appear normal bilaterally. The internal carotid arteries demonstrate normal course and caliber. Posterior circulation: The origins of the vertebral arteries appear patent. The left proximal vertebral artery is tortuous. More superior portions of both vertebral arteries demonstrate normal caliber, and join to form a normal appearing basilar artery. Miscellaneous: Subclavian arteries appear patent. Pre-contrast images through the neck show no soft tissue abnormalities. IMPRESSION: BRAIN MRI: No findings of acute or subacute infarction can be seen. Note is made of age-appropriate brain parenchymal volume loss and chronic small vessel ischemic changes. No masses or abnormal enhancement can be seen. Moderate fluid is seen within the mastoid air cells. Mild mucosal thickening is seen within the paranasal sinuses. BRAIN MR ANGIOGRAM: No significant intracranial arterial abnormality is seen. NECK MR ANGIOGRAM: Within the arteries of the neck, no hemodynamically significant stenosis can be seen. Dictated by: Michele Rodrigues M.D. on 01/06/2019 at 12:56 Approved by: Michele Rodrigues M.D. on 01/06/2019 at 13:01
--- NOTE | 2019-01-06 07:58 | DI.MRI.S_ITS ---
PROCEDURE: MR ORBITS FACE NECK WO CON INDICATIONS: Angioedema with unilateral L swelling/mass TECHNIQUE: This study was terminated early by the patient. The following imaging sequences were obtained: Coronal T1 weighted, coronal STIR, sagittal T1-weighted, sagittal STIR, axial T1-weighted, and axial STIR. No post contrast images were obtained. COMPARISON: [facility], CT, CT SOFT TISSUE NECK W CON, 01/03/2019, 9:26. [facility], CT, CT HEAD/BRAIN WO CON, 01/05/2019, 21:02. [facility], MR, MR STROKE, 01/06/2019, 11:08. FINDINGS: Image quality: This examination is limited by involuntary motion artifact. Neck: In this patient with this given history, scrutiny is given to the vallecular region, where an abnormality can be seen on the CT performed 01/03/19. On this study, no similar mass is seen. No nathan neck masses are seen are seen elsewhere. The thyroid is unremarkable. No significant airway abnormality is seen. CSF spaces: Ventricles are normal in size and shape. Basal cisterns are patent. No extra-axial fluid collections. Brain: No intracranial bleeds or mass effects. No abnormal intracranial enhancement. Kern-white matter interface is intact. Diffusion weighted images demonstrate no acute ischemic insults. Brainstem appears normal. Normal intravascular flow voids are present. Skull and face: Calvarial marrow is normal in signal. Sinuses: Moderate fluid can be seen within the mastoid air cells, left worse than right. Mild mucosal thickening is seen within the paranasal sinuses. Cervical spine degenerative changes are seen, which are worst at the C6-C7 level, with focal relatively prominent degenerative change also seen at C3-C4 and C5-C6 levels. IMPRESSION: A mass is not confirmed at the area of the previously seen CT abnormality. This may be related to retained secretions, which have resolved. Please note that this study is incomplete, as it was terminated early by the patient. No contrast was given. If clinically appropriate, please consider repeat CT or direct visual inspection via laryngoscopy. Focal C6-C7 degenerative change noted. Dictated by: Michele Rodrigues M.D. on 01/06/2019 at 12:47 Approved by: Michele Rodrigues M.D. on 01/06/2019 at 12:56
[2019-01-06 08:05] VITALS: PULSE 59; O2SAT 96
[2019-01-06] MEDS: DOCUSATE ORAL LIQUID 100 MG/10 ML UDC TUBE (09:20)
[2019-01-06] MEDS: HEPARIN 5,000 UNIT/ML VIAL 5000 UNIT SUBCUT (09:20)
[2019-01-06] MEDS: ASPIRIN 81 MG CHEW TAB TUBE (09:20)
[2019-01-06] MEDS: LORATADINE 10 MG TABLET PO (09:20)
--- NOTE | 2019-01-06 09:20 | DIET.PN ---
Dietary Progress Note Assessment: 73y F extubated yesterday after upper airway swelling subsided. Currently on Mechanical Soft diet for airway irritation. Enjoyed oatmeal this am but reported it feeling scratchy in throat. Pt has past medical history significant for hypertension, hyperlipidemia, diabetes mellitus type 2, insulin using, GERD, Crohn's disease, CKD stage III HT: 152.4cm WT: 83.2kg BMI: 35.8 Labs: BUN 32, Cr 1.4 (H), GFR 37 (L, has CKDIII), BG 124, A1c 7.2 (H, reasonable control) Nutrition Diagnosis: Difficulty swallowing r/t sore throat s/p extubation aeb pt reports oatmeal was scratchy in throat this am. Interventions: Continue cooling, [facility]. soft diet on discharge, recc extra PRO, zinc, Vit A, Vit C for mucus membrane healing for next 1w. Diet Order: [facility] Soft Monitoring/Evaluations: I&Os, diet tolerance
--- NOTE | 2019-01-06 09:53 | PC.NURSE ---
Addendum entered by Maria Teresa Cervantes R.N. 01/06/19 14:01: pt discharged home with assist of daughter- reviewed post discharge plan at length with both pt and daughter- answered all questions to their satisfaction and pt ambulated with hospital escort at this time Original Note: PT A/O X 3 AND ANSWERING ALL QUESTIONS APPROPRIATELY- NIH SCORE 2 DUE TO BILAT LEG DRIFT ( PROB R/T AGE/WKNS) SHE HADS VJOIDED X 2 POST REMOVAL OF CATHETER AND AMBULATING WITH SBA THROUGHOUT THE ICU. PT REPORTS NO PAIN AND SINCE BEGINNING AMBULATION THIS AM HAS INCREASINGLY GOTTEN STRONGER AND LESS ANXIOUS- CONTINUES TO BE NSR PER TELEMETRY
--- NOTE | 2019-01-06 10:14 | ST.IPIE ---
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 Lomeli Reason for Referral Expressive Aphasia Past Medical History Patient History Patient is s/p extubation for tongue swelling secondary to angioedema. Yesterday she complained of new onset dizziness and double vision. She also had difficulty with communication. Stroke workup was negative and all symptoms have resolved. Vision Comments Wears glasses - Informal Assessment Receptive Language Normal Yes Expressive Language Normal Yes Articulation Normal Yes: 100% intelligible in conversational speech Assessment Findings Informal assessment of comprehension and expression were completed. Patient answered questions appropriately and followed 3 step directions with out difficulty. No deficits noted in word finding during naming tasks or in conversation. Patient able to read word and sentence list without difficulty. No deficits in verbal expression though patient is mildly dysphonic due to pharyngeal swelling from intubation/extubation. Patient passed [place] 3 oz water swallow test. She endorses mild pain when swallowing, but has been able to eat soft solid foods and swallow medication without difficulty. Denies feeling like food is going down the wrong way. Education provided regarding recommendations for vocal rest , follow-up with Dr. Rojas ENT if hoarseness persists after a few weeks and advancing diet as tolerated once home. Recommendations No speech therapy warranted at this time. - Receptive Language Yes/No Questions Skill Level WNL Following Directions - Verbal Skill Level WNL Defining Words Skill Level WNL Auditory Comprehension Skill Level WNL Reading Comprehension Skill Level WNL - Expressive Language Automatic Speech Skill Level WNL Sentence Closure Skill Level WNL Object Naming Skill Level WNL Oral Expression Skill Level WNL -
--- NOTE | 2019-01-06 10:28 | PT.IIE ---
Current Diagnoses Angioneurotic edema, initial encounter (01/03/19) Surgical History (Last Reviewed 01/05/19 @ 11:20 by Castillo Ryder MD) History of left oophorectomy (Resolved) Status post cone biopsy of cervix (Resolved) Status post laparoscopic cholecystectomy (Resolved) Medical History (Last Reviewed 01/05/19 @ 11:20 by Castillo Ryder MD) Abnormal Pap smear of cervix (Resolved) Crohn's disease (Chronic) Diabetes mellitus (Chronic) Duodenal ulcer (Chronic) GERD (gastroesophageal reflux disease) (Chronic) Hyperlipidemia (Chronic) Physical Therapy Inpatient Evaluation/Re-Eval M1 PT/OT-IP Prior Functional Status Start: 01/06/19 07:49 Freq: NEEDED Status: Active Protocol: Document 01/06/19 10:27 RS (Rec: 01/06/19 10:40 RS [id number]) Medical Review Prior Functional Status Medical History Reviewed Yes Diet/Fluid Consistency Regular Communication no known deficits Mobility and Gait ind without device, denies falls, occasionally used walking stick for hiking Activities of Daily Living and IADL's denies needing assist with any selfcare Prior Functional Level (Other details) drives, has a dog Social History Household Members none Living Arrangements House Number of Floors (Floors) One Floor Number of Stairs To Enter/Railing? 3STE with R ascending rail Home Environment Standard Height Toilet,Walk in Shower,Built-In Shower Seat Additional Social History Comment dtr will be staying with her after discharge M2 PT-IP Current Condition Start: 01/06/19 07:49 Freq: NEEDED Status: Active Protocol: Document 01/06/19 10:27 RS (Rec: 01/06/19 10:40 RS [id number]) Physical Therapy Current Condition Current Condition Evaluation Date 01/06/19 Treatment Diagnosis angioedema requiring intubation - impaired mobility Onset Date 01/03/19 M3 PT-IP Subjective Start: 01/06/19 07:49 Freq: NEEDED Status: Active Protocol: Document 01/06/19 10:27 RS (Rec: 01/06/19 10:40 RS [id number]) Subjective Physical Therapy Visit Type Type Initial Evaluation Visit Start Time 10:00 Visit Stop Time 10:28 Total Visit Minutes 28 Number of DESIGN 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 Patient Goals Go home today. Therapy Pain Assessment Pain When Pain Assessed At Rest Pain Present Pain Present Pain Reported M4 PT-IP Mobility and Gait Start: 01/06/19 07:49 Freq: NEEDED Status: Active Protocol: Document 01/06/19 10:27 RS (Rec: 01/06/19 10:40 RS [id number]) PT-Bed Mobility Assessment Supine to Sit Supine to Sit Independent Sit to Supine Sit to Supine Independent Scooting Scooting to Edge of Bed Independent PT-Transfer Assessment Sit to and From Stand Sit to and from Stand Standby Assistance Equipment Transfer Assistive Device Gait Belt Transfers Transfer Destination Chair Transfer Technique walked Transfer Ability Level of Assist Standby Assistance Comments Mobility Comments Pt was a little shaky when first standing up but did not require AD or physial assist. Gait Assessment Gait Gait Assistance Required: Standby Assistance Distance (Feet) 500 Assistive Devices Assistive Device Gait Belt Gait Deviations General Gait Pattern Wide Based Gait Comments Gait Comments Pt a little ataxic or shaky when first starting to walk with wide SEAMUS and superfluous lateral weight shifting with each step. Sea legs. The longer the pt was up walking the more normalized the gait pattern became. Pt ended session with smooth gait, no LOB, normal step width and weight shift excursion. Stair Climbing Assessment Evaluation Level of Assist On Stairs Standby Assistance Devices Stair Climbing Assistive Devices Right Railing Technique/Endurance Stair Climbing Direction Ascend and Descend Stair Climbing Technique Step Over Step,Step to Step Comments Stair Climbing Comments step through when ascending, step-to when descending, steady and no LOB. PT-Balance Assessment Sitting Balance and Reactions Static Sitting Balance Ability Normal Dynamic Sitting Balance Ability Normal Standing Balance and Reactions Static Standing Balance Ability Normal Dynamic Standing Balance Ability Good Device Used none M5 PT-IP Objective Assessments Start: 01/06/19 07:49 Freq: NEEDED Status: Active Protocol: Document 01/06/19 10:27 RS (Rec: 01/06/19 10:40 RS [id number]) Orientation Orientation/Cognition Level of Alertness Alert Orientation Name,Age,Birthday,Month,Date, Year,Day of Week,Place, Situation Language Function Ability No Deficits Noted Safety Awareness Understands Safety Issues Memory Description No Deficits Noted Gross Range of Motion Lower Extremity ROM Assessment Within Functional Limits Strength Lower Extremity Strength Assessment Within Functional Limits M6 PT-IP Treatment Start: 01/06/19 07:49 Freq: NEEDED Status: Active Protocol: Document 01/06/19 10:27 RS (Rec: 01/06/19 10:40 RS [id number]) Physical Therapy Treatment Education Education Provided Safety M7 PT-IP Assessment and Plan Start: 01/06/19 07:49 Freq: NEEDED Status: Active Protocol: Document 01/06/19 10:27 RS (Rec: 01/06/19 10:40 RS [id number]) PT Summary Assessment and Plan Potential Rehabilitation Potential Excellent Status of Condition at Evaluation Stable Summary Impairments Activity Tolerance Progress Towards Goals Safe For Discharge Assessment Summary Pt presents with gross deconditioning after almost 3 days of intubation. Considering pt's hospital course, pt is doing quite well with mobility. Pt only requires SBA for mobility (no AD), but this is still below pt's reported functional baseline. Pt will be safe for discharge home once medically ready. Pt's dtr will be staying with her for as long as needed. Pt's functional mobility (balance, endurance) is expected to improve with just gradual return to normal activities. Pt does not require follow-up PT. Pt also does not have any other acute PT goals/needs, therefore, acute PT will sign off with the anticipation that pt will continue to mobilize with nursing/family encouragement. Pt/family in agreement with this plan. Frequency of Treatment Frequency Of Treatment Discharge Recommendations To Nursing Amount of Assist Needed Standby Assistance Discharge Recommendations PT Discharge Recommendations Home with Assistance Equipment Needed for Home Before none Discharge
--- NOTE | 2019-01-06 11:34 | P.DS_ITS ---
History of Present Illness History of Present Illness Date Patient Seen: 01/03/19 Chief complaint: SOB, tongue swelling Narrative: Written by Janee LUI: At time of HPI patient is intubated and moderately sedated with RASS score of 2. Her 2 daughters are at bedside and provide details outlined in the HPI. The patient is a 73-year-old female with PMH IDDM 2T, GERD, duodenal ulcer, Crohn's disease, HLD, history of anemia, and CKD 3. Patient is an independent older adult who presented to the ED out of concern for progressive tongue and throat swelling. No reported symptoms of urticaria. Symptoms noted at 1:00 a.m. on 01/03 and progressively worsening until patient presented to the ED. Associated symptoms include hoarse voice. Patient has been suffering from acute flu-like symptoms in the past week she is noted to have had a non-producti ve cough, that was worse during the night. Patient has not had any similar events in the past. She does take lisinopril 10 mg daily for renal protection. Patient and family does not endorse history of hypertension. Her dose of lisinopril was increased at the beginning of the year. On initial presentation patient was hypoxic with SpO2 in the 80s. Emergent CT of the neck revealed focal an asymmetric left-sided soft tissue enlargement/mass at just below the level the vallecula with associated left-sided airway narrowing. Efforts made by the ED provider to intubate the patient, however she was found to be difficult intubation. ENT and anesthesia had to aid with intubation. At time of HPI patient is ventilated. She is tolerating the vent. She is not overtly sedated, are as score of 2, and is able to nonverbally confirm informations with no months. She is requiring quite a bit of sedation. Currently on propofol at 40 mcg. She also has fentanyl available as needed. In the ED patient received dexamethasone. Patient has not been complaining of any acute ailment in the past week with exception of flu like symptoms described above. She does have history of Crohn's which has been controlled with curcumin, however the past couple of days has had more diarrhea than usual. Patient did not complain of any particular abdominal discomfort, nausea, vomiting or rectal bleeding. Patient is said to have been partaking in a marijuana use in the past week as well as light to mo derate beer consumption. The family communicates that this is a difficult time for the patient. Patient is known to have loss or significant other and the past 1-2 years during this time. The family does not endorse fever or chills. No significant weight loss reported. Initial labs were unremarkable for leukocytosis. Hemoglobin 11.2 and PLT 248, stable. She does have underlying renal insufficiency, and renal function is at her baseline. Received 125 methylprednisolone, epinephrine, and Benadryl in the ED.CKD I Discharge Providers Provider Date of admission: 01/03/19 12:51 Discharge Date: 01/06/19 Primary care physician: Yassine Matias MD Consults: 01/03/19 12:13 Consult to Dietitian, Adult Routine Comment: Reason For Exam: Patient on Ventilator and NPO 01/06/19 07:11 Consult to Occupational Therapy Evaluate & Treat Comment: Physician Instructions: Evaluate and treat Consult to Physical Therapy Evaluate & Treat Comment: Physician Instructions: Evaluate and Treat 01/06/19 09:05 Consult to Speech Therapy Evaluate & Treat Comment: expressive aphasia (resolved) Physician Instructions: Evaluate and treat Discharge provider: Michelle Lomeli DO Summary Hospital Course Discharge Diagnosis: 1. Acute angioedema, present on admission. Resolved with mild residual neck sw elling improving. 2. Acute hypoxemic respiratory failure in the setting of airway obstruction, present on admission. Resolved. 3. Stroke like symptoms, not present on admission. Resolved. 4. Acute hypomagnesemia, not present on admission. Resolved. 5. Diabetes mellitus type 2, insulin using, present on admission. Stable. 6. CKD III, chronic, present on admission. Stable. 7. Chrohn's disease, chronic, present on admission. Presumed stable. 8. GERD, chronic, present on admission. Stable. 9. Hyperlipidemia, chronic, present on admission. Stable. 10. Possible hypertension. Hospital Course: Nani Morton is a 73-year-old female with a past medical history significant for hypertension, hyperlipidemia, diabetes mellitus type 2, insulin using, GERD, Crohn's disease, CKD stage III, who presented with shortness of breath and upper airway swelling and was subsequently intubated for airway protection due to angioedema. 1. Acute angioedema, present on admission. Resolved with mild residual neck swelling improving. -Patient has been on lisinopril for renal protection since at least 11/2017. No prior known angioedema or immune mediated events. Dose of lisinopril increased from 2.5 to 10 mg daily in 03/2018 and which reason is not entirely clear but possibly for increased blood pressure control. Angioedema may occur suddenly even though the drug has been tolerated for years. Angioedema without urticaria. -Etiology unclear and differential diagnosis includes: IgE mediated vs complement mediated vs hereditary vs soft tissue mass vs lymphoma (high risk due to Crohn's). C4 level pending. -CT soft tissue neck with contrast demonstrated focal and asymmetric left-sided soft tissue enlargement/mass at and just below the level of the vallecula with associated left-sided airway narrowing. Recommend ENT consultation and direct visualization as malignancy cannot be excluded. Infectious, inflammatory or drug related angioedema in the differential although would be unusual presentation given the asymmetric left-sided appearance. Please correlate clinically. -Discontinued lisinopril indefinitely. -Recent upper respiratory tract illness, therefore, ordered respiratory PCR which was negative. -Consulted [facility] sales administration manager over the phone, Dr. De Dios, who agreed with the current management and believes patient will likely be able to be extubated the next 24-48 hours. -Continued supportive care with methylprednisolone 60 mg IV every 8 hours then transitioned to long prednisone taper over 10 days , Benadryl 25 mg IV every 6 hours then discontinued, famotidine 20 mg every 12 hours then ranitidine 150 mg twice daily, and loratadine 10 mg daily. -Consulted respiratory therapy for ventilator management and continued current ventilator settings as above until successfully extubated on 01/05. Continued supplemental oxygen as necessary to maintain oxygen saturation 88-92%. -MRI orbits and neck demonstrated A mass is not confirmed at the area of the previously seen CT abnormality. This may be related to retained secretions, which have resolved. Study is incomplete, as it was terminated early by the patient and no contrast was given. -Recommended outpatient evaluation by ENT in near future. 2. Acute hypoxemic respiratory failure in the setting of airway obstruction, present on admission. Resolved. -Patient required anesthesiologist to be intubated due to difficult airway. Patient now status post successful extubation. -Consulted respiratory therapy for ventilator management and continued ventilatoruntil successfully extubated on 01/05. Continued supplemental oxygen as necessary to maintain oxygen saturation 88-92%. 3. Stroke like symptoms, not present on admission. Resolved. -Patient developed blurred vision, expressive aphasia and dizziness. -Possibly secondary to TIA vs. medication reaction. -CT brain without contrast did not demonstrate acute intracranial abnormalities. -Receievd aspirin 324 mg x 1. -MR stroke protocol did not demonstrate any acute intracranial or neck stenosis, occlusion, or abnormalities. 4. Acute hypomagnesemia, not present on admission. Resolved. -Magnesium level 1.3. Received magnesium sulfate 4 g IV x 1. 5. Diabetes mellitus type 2, insulin using, present on admission. Stable. -Hemoglobin A1C 7.2 % indicative of good control. -Held metformin. -Continued lantus 20 units daily. -Continued every 6 hour blood glucose monitoring and low dose which will likely be elevated due to glucocorticoid use. 6. CKD III, chronic, present on admission. Stable. -Creatinine 1.3 which is at her baseline. -Avoided nephrotoxic agents. -Continued to trend renal function periodically. 7. Chrohn's disease, chronic, present on admission. Presumed stable. -Previously on biologics but not currently on medical treatment due to financial reasons. 8. GERD, chronic, present on admission. Stable. -Continued famotidine then transitioned to ranitidine 150 twice daily. Discontinued PPI. 9. Hyperlipidemia, chronic, present on admission. Stable. -Continued atorvastatin 20 mg daily at bedtime and aspirin 81 mg daily. 10. Possible hypertension. -Discontinued lisinopril as likely caused angioedema as above. BP labile and elevated at times. May consider antihypertensive agents if hypertensive in future per PCP. Exam Vital Signs (past 8 hours): - 01/06/19 04:00 01/06/19 04:30 01/06/19 06:00 Temperature 98.9 F Pulse Rate 57 L 53 L Respiratory Rate 18 19 Blood Pressure 126/60 131/73 Pulse Oximetry 94 95 01/06/19 08:05 Temperature Pulse Rate 59 L Respiratory Rate Blood Pressure Pulse Oximetry 96 Fraction of Inspired Oxygen 45 Oxygen Delivery Method Room Air Oxygen Flow Rate 0 Narrative Exam Narrative: General: Elderly female lying in bed and in no acute distress, HEENT: Normocephalic, atraumatic. External ears without defect. Pupils equal, round, and reactive to light. Anicteric sclerae, moist conjunctivae, and no lid lag. Neck: Left-sided lymphadenopathy and swelling, significantly improved. No jugular venous distension. No bruits. No thyromegaly. Cardiovascular: Regular rate and rhythm without murmurs, rubs, or gallops appreciated. Pulmonary: Clear to auscultation bilaterally without crackles, wheezes, or rhonchi. Abdomen: Soft, obese, bowel sounds nontender, nondistended. No hepatosplenomegaly or masses appreciated. Extremities: No clubbing, cyanosis, or edema. Skin: Normal temperature, turgor, and texture; no rash, ulcers, or subcutaneous nodules appreciated. Neurological: Cranial nerves grossly intact. Normal muscle strength, tone, and bulk. Reflexes, coordination, and sensory function within normal limits. No known gait impairment. No focal neurological deficits. Psychiatric: Normal mood and affect. Alert and oriented to person, place, and time. Objective Labs Result Diagrams: 01/06/19 04:25 01/06/19 04:25 Labs: Laboratory Results - last 24 hr 01/06/19 01/06/19 04:25 04:25 WBC 11.4 H RBC 3.44 L Hgb 9.3 L Hct 28.3 L MCV 82.1 MCH 26.9 MCHC 32.7 RDW 15.6 H Plt Count 222 Neut % (Auto) 86.5 H Lymph % (Auto) 7.7 L Lyon % (Auto) 5.7 Eos % (Auto) 0.0 L Baso % (Auto) 0.1 Neut # (Auto) 9800 H Lymph # (Auto) 900 L Lyon # (Auto) 700 Eos # (Auto) 0 Baso # (Auto) 0 Sodium 140 Potassium 4.1 Chloride 111 H Carbon Dioxide 22 BUN 31 H Creatinine 1.20 H Estimated GFR 44.2 L BUN/Creatinine Ratio 25.8 H Glucose 150 H D Calcium 8.2 L Magnesium 2.4 H Triglycerides 167 H Cholesterol 133 L LDL Cholesterol, Calc 45 HDL Cholesterol 55 Discharge Plan Discharge Plan Patient Disposition: Home Discharge comment: You are being discharged home. Please follow-up with your primary care provider, Dr. Matias, at your scheduled appointment and please have a referral to Ear Nose and Throat to evaluate your airway to assure there is no underlying masses. Your MRI was negative for stroke and did not show a mass in your airway and demonstrated resolution of your swelling. You were prescribed prednisone taper over the next 9 days. You were also prescribed loratadine 10 mg daily for allergies and ranitidine 150 mg twice daily for acid reflux. Your omeprazole was discontinued as this can cause kidney disease and increased risk of heart attack and stroke. If you have any signs of airway swelling, muffled voice, trouble breathing or shortness of breath please taken Benadryl and call 911. Discharge Med Rec/Prescriptions Prescriptions: New prednisone 10 mg tablet 40 mg PO DAILY Qty: 17 RF: 0 loratadine 10 mg Tablet 10 mg PO DAILY Qty: 30 RF: 0 ranitidine HCl 150 mg tablet 150 mg PO BID Qty: 60 RF: 0 Continued Lantus U-100 Insulin 100 unit/mL solution 20 unit SUBCUT DAILY Qty: 10 RF: 11 atorvastatin 20 mg tablet 20 mg PO QPM Qty: 90 RF: 3 metformin [Glucophage] 1,000 mg tablet 1,000 mg PO BID Qty: 180 RF: 3 zolpidem 5 mg tablet 5 mg PO BEDTIME PRN (Reason: insomnia) Qty: 15 RF: 5 (DME) Glucose: Test Strips 0 .Route .MEDSUPPLY Qty: 1 RF: 3 curcumin 1 dose PO DAILY RF: 0 (DME) insulin syringe-needle U-100 [Advocate Syringes] 0.3 mL 29 gauge x 1/2 syringe See Dose Instructions .ROUTE .MEDSUPPLY Qty: 500 RF: 0 aspirin [Adult Low Dose Aspirin] 81 mg tablet,delayed release (DR/EC) 81 mg PO DAILY Qty: 30 RF: 0 Glucose: Home Monitor 0 dev topical TID RF: 0 Discontinued lisinopril 10 mg tablet 10 mg PO DAILY Qty: 90 RF: 3 omeprazole 20 mg capsule,delayed release(DR/EC) 20 mg PO DAILY RF: 0 Follow up/Referrals: Yassine Matias MD [Primary Care Provider] - 3-5 Days (APPT TIME : @ 1PM) Provider Discharge Instructions Diet: Diet as Tolerated Diet comment: soft diet and slowly advance Activity: Activity as tolerated Visit Report/Discharge Packet Instructions: DI for Angioedema Discharge Data Primary Care Provider: Yassine Matias Discharges patient from system. Discharge Date/Time: 01/06/19 14:04 Quality VTE Deep Vein Thrombosis/Pulmonary Embolism Present on Admission: No
[2019-01-06] MEDS: predniSONE 20 MG TABLET 40 MG PO (12:17)
[2019-01-06] MEDS: INSULIN ASPART 100 UNIT/ML INSULN PEN SUBCUT (13:01)
--- NOTE | 2019-01-06 13:20 | OT.IP.EVAL ---
Current Diagnoses Angioneurotic edema, initial encounter (01/03/19) Past Medical History (Last Reviewed 01/05/19 @ 11:20 by Castillo Ryder MD) Abnormal Pap smear of cervix (Resolved) Crohn's disease (Chronic) Diabetes mellitus (Chronic) Duodenal ulcer (Chronic) GERD (gastroesophageal reflux disease) (Chronic) Hyperlipidemia (Chronic) Surgical History (Last Reviewed 01/05/19 @ 11:20 by Castillo Ryder MD) History of left oophorectomy (Resolved) Status post cone biopsy of cervix (Resolved) Status post laparoscopic cholecystectomy (Resolved) Occupational Therapy Inpatient Evaluation/Re-Eval M1 PT/OT-IP Prior Functional Status Start: 01/06/19 13:00 Freq: NEEDED Status: Active Protocol: Document 01/06/19 13:01 [facility] (Rec: 01/06/19 13:20 [facility] [id number]) Medical Review Prior Functional Status Medical History Reviewed Yes Diet/Fluid Consistency Regular Communication no known deficits Mobility and Gait ind without device, denies falls, occasionally used walking stick for hiking Activities of Daily Living and IADL's denies needing assist with any selfcare Prior Functional Level (Other details) drives, has a dog Social History Household Members none Living Arrangements House Number of Floors (Floors) One Floor Number of Stairs To Enter/Railing? 3STE with R ascending rail Home Environment Standard Height Toilet,Walk in Shower,Built-In Shower Seat Additional Social History Comment dtr will be staying with her after discharge M2 OT-IP Current Condition Start: 01/06/19 13:00 Freq: Status: Active Protocol: Document 01/06/19 13:01 [facility] (Rec: 01/06/19 13:20 [facility] [id number]) Occupational Therapy Current Condition Current Condition Evaluation Date 01/06/19 Treatment Diagnosis Angioedema Diagnosis Onset Date 01/03/19 Weight Bearing Status Weight Bearing Status Weight Bear as Tolerated M3 OT- IP Subjective and Pain Start: 01/06/19 13:00 Freq: Status: Active Protocol: Document 01/06/19 13:01 [facility] (Rec: 01/06/19 13:20 [facility] [id number]) OT- Subjective Occupational Therapy Visit Type Type Initial Evaluation Visit Start Time 10:03 Visit Stop Time 10:33 Notes Also seen form [id number] to finish cognitive assessment. Occupational Therapy Visit Comments Patient Comments Pt's daughter present for OT eval , in addition PT present for part of the eval as both therapists trying to see her prior to her going to MRI. Patient/Caregiver Goals To go home. OT Pain Assessment Pain When Pain Assessed At Rest Pain Present Pain Present Denied Pain M4 OT- IP ADL's Start: 01/06/19 13:00 Freq: Status: Active Protocol: Document 01/06/19 13:01 [facility] (Rec: 01/06/19 13:20 [facility] [id number]) OT [id number] General Evaluation Self-Feeding Ability Independent OT ADL-Dressing General Eval Lower Body Dressing Ability Independent Comments OT Dressing Comments Pt able to independently alejandra doff socks and shoes after set -up of daughter getting items out from the closet. OT ADL-Toileting General Evaluation Toileting Ability Independent OT ADL-Bathing Comments OT Bathing Comments Pt states will shower at home and that her daughter will be there to assist if needed or at least provide supervision. M5 OT- IP IADL's Start: 01/06/19 13:00 Freq: Status: Active Protocol: Document 01/06/19 13:01 [facility] (Rec: 01/06/19 13:20 [facility] [id number]) OT-Instrumental Activities of Daily Living Home Safety Awareness Ability to Problem Solve Emergency Able to Problem Solve Situations Home Safety Comments Pt's daughter to stay with pt and observe and assist pt as needed. Suggested to have pt slowly get back to doing all her IADl needs, take out the garbage, do dishes, laundry , etc.. so that her daughter is able to observe her safety and whether she is back to being completely independent with good safety. M6 OT- IP Functional Cognition Start: 01/06/19 13:00 Freq: Status: Active Protocol: Document 01/06/19 13:01 [facility] (Rec: 01/06/19 13:20 [facility] [id number]) Cognitive Factors Limiting Selfcare Function Cognitive Ability Level of Alertness Alert Patient Orientation Name,Age,Birthday,Month,Date, Year,Day of Week,Place, Situation Attention Span Ability Capable of Focused Attention, Capable of Sustained Attention Ability to Follow Commands Able to Follow Multi-Step Commands Memory Description No Deficits Noted Safety Awareness No Deficits Noted Problem Solving Ability No deficits Noted Cognitive Comments Cognitive Assessment Comments Pt scored 123 seconds on [place] Making Part B is borderline score for moderate to severe impairments for mental flexibility , visual and speed of processing and executive function. At this time suggested before pt tries to drive on her own to have daughter sit with her in the car to see how she does. OT- Vision and Hearing OT- Hearing Assessment OT- Hearing Assessment WFL OT- Vision Assessment Vision History Blindness Vision Assessment Comments Left eye blind. M7 OT- IP Mobility and Balance Start: 01/06/19 13:00 Freq: Status: Active Protocol: Document 01/06/19 13:01 [facility] (Rec: 01/06/19 13:20 [facility] [email or web address]) OT-Transfer Assessment Sit to and From Stand Sit to and from Stand Standby Assistance Transfers Transfer Ability Standby Assistance Technique Transfer Destination Chair,Toilet,Wheelchair Transfer Technique Stand Step Pivot Devices Transfer Assistive Devices Gait Belt,Front Wheeled Walker Comments Mobility Comments SBA for all mobility, initially when pt not wearing her shoes noted swaying to the right but able to catch her balance. Pt much steadier on her feet with shoes. PT able to recommend to use walking stick when outside. OT- Balance Assessment Sitting Balance and Reactions Static Sitting Balance Ability Normal Dynamic Sitting Balance Ability Good Standing Balance and Reactions Static Standing Balance Ability Fair M8 OT- IP Objective Assessments Start: 01/06/19 13:00 Freq: Status: Active Protocol: Document 01/06/19 13:01 [facility] (Rec: 01/06/19 13:20 [facility] [id number]) OT Gross Range of Motion Upper Extremity Range of Motion Assessment Within Functional Limits M9 OT- IP Assessment and Plan Start: 01/06/19 13:00 Freq: Status: Active Protocol: Document 01/06/19 13:01 [facility] (Rec: 01/06/19 13:20 [facility] [id number]) OT Summary Assessment and Plan Potential Rehabilitation Potential Good Analytic Complexity at Evaluation Low Summary OT Impairments Balance Progress Towards Goals Safe For Discharge Assessment Summary Pt low complexity and main barrier is now having some decreased activity tolerance and decreased dynamic balance and now PT recommending that pt use a walking stick when walking outside. Pt's daughter to stay with pt to provide initially any assist, then eventually supervision and then leave to go back to [place] when she feel that pt is back to baseline of being completely independent with all needs. Goals Patient/Caregiver Education Goal Caregiver Independent Assisting Patient Days to Meet Goals 1 Frequency of Treatment Frequency Of Treatment Once a Day Treatment Plan OT Treatment Plan Patient/Family Education, Discharge Planning Discharge Recommendations OT Discharge Recommendations Home with Assistance Home Equipment Needs shower chair, grab bar in shower
--- NOTE | 2019-01-06 14:13 | CM.DPC ---
DCP: continued: case received, EMR reviewed. DC to home setting noted. A check in now shows that pt did d/c as planned back to her [place] home today in company of her daughters. Per Jaxon Shae's note daughter's did plan to stay with her for a short time before they returned to [place].
== END 2019-01-06 14:04 | disposition home or self-care (01) | DRG 916 ==
LOC: ED 12:09 → ICU 16:12
PROVIDERS: Nurse Practitioner Gerontology; Admitting Provider Internal Medicine; Emergency Provider Emergency Medicine; PCP Student in an Organized Health Care Education/Training Program; Visit Provider Internal Medicine
DX: T78.3XXA Angioneurotic edema, initial encounter (principal); E11.22 Type 2 diabetes mellitus with diabetic chronic kidney disease; N18.3 Chronic kidney disease, stage 3 (moderate); E83.42 Hypomagnesemia; I12.9 Hypertensive chronic kidney disease with stage 1 through stage 4 chronic kidney disease, or unspecified chronic kidney disease; Z79.4 Long term (current) use of insulin; K21.9 Gastro-esophageal reflux disease without esophagitis; E78.5 Hyperlipidemia, unspecified
CPT/HCPCS: 36415; 36591; 36600; 51701; 70450; 70491; 70540; 70548; 70553; 71045; 80048; 80053; 80061; 81003; 82805; 82962; 83036; 83735; 84145; 84439; 84443; 85025; 85651; 86160; 87633; 87797; 92523; 93005; 93010; 94002; 94003; 94770; 94799; 96365; 96372; 96375; 97116; 97161; 97165; 99285; 99291; 99292; J0171; J0295; J0330; J1100; J1200; J1644; J2405; J2704; J2930; J3010; J3360; J3475; Q9967

== ENCOUNTER → 2019-01-13 12:13 | Outpatient (CLI) | payer MEDICARE, SELFPAY ==
[2019-01-03 13:15] VITALS: BMI 34.9
[2019-01-05 10:35] VITALS: PULSE 57; RESP 16; O2SAT 93
--- NOTE | 2019-01-13 12:14 | DI.CT.S_ITS ---
PROCEDURE: CT SOFT TISSUE NECK WO CON INDICATIONS: soft tissue airway mass from prior CT TECHNIQUE: Non-contrast 3.0 mm axial sections acquired from the sella to the aortic arch. Additional oblique axial 3.0 mm sections acquired through the pharynx. 3 mm thick coronal and sagittal reformats were generated. For radiation dose reduction, the following was used: automated exposure control. COMPARISON: [facility], MR, MR ORBITS FACE NECK WO CON, 01/06/2019, 10:47. [facility], CT, CT SOFT TISSUE NECK W CON, 01/03/2019, 9:26. FINDINGS: Image quality: Excellent. Lymph nodes: No enlarged lymph nodes seen throughout the neck. Vessels: Non-opacified vessels appear normal in caliber. Neck spaces: Previously described left-sided hypodense soft tissue mass and mucosal thickening at the level of vallecula resulting in left-sided supraglottic airway narrowing is less pronounced on the current study with slight left posterior hypopharyngeal soft tissue asymmetry at the level of vallecula and very mild left-sided hypopharyngeal airway narrowing at this level. This area now measures approximately 4 mm in size best seen on series 4 image 20. No other soft tissue mass or bone airway narrowing is seen. Glands: The parotid and submandibular glands appear normal, without stones. Thyroid gland is within normal limits. Miscellaneous: Visualized brain and orbits appear normal. Lung apices appear clear. Superficial soft tissues appear normal. Degenerative disc disease throughout cervical spine is again seen and unchanged. IMPRESSION: 1. Previously described focal and asymmetric left-sided soft tissue enlargement/mass at the level of vallecula has significantly decreased in size and now measures approximately 4 mm with slight asymmetric left-sided airway narrowing. Finding could represent resolving inflammatory or infectious process in this area. Clinical correlation and possible direct visualization is recommended. 2. No neck soft tissue lymphadenopathy. Rest of the airway is patent. Dictated by: Eren Mayorga M.D. on 01/13/2019 at 12:56 Approved by: Eren Mayorga M.D. on 01/13/2019 at 13:16
== END ==
PROVIDERS: PCP Student in an Organized Health Care Education/Training Program; Visit Provider Student in an Organized Health Care Education/Training Program
DX: R22.0 Localized swelling, mass and lump, head (principal); T78.3XXA Angioneurotic edema, initial encounter; M50.30 Other cervical disc degeneration, unspecified cervical region
CPT/HCPCS: 70490

== ENCOUNTER → 2019-03-05 10:47 | Outpatient (CLI) | payer MEDICARE, SELFPAY ==
[2019-01-03 13:15] VITALS: BMI 34.9
[2019-01-05 10:35] VITALS: PULSE 57; RESP 16; O2SAT 93
--- NOTE | 2019-03-05 12:35 | DIET.PN ---
Dietary Note Diabetes Intake: Initial Assessment Assess: Mrs. Morton is a 73 YOF referred for type 2 diabetes, hyperlipidemia, morbid obesity w/ CKD 3. She was admitted into the ICU and intubated for 4 days x 2 mo ago due to anaphylactic shock from a BP medication per pt. She was placed on prednisone for several weeks. Since admit she reports she noticed changes in her health. She is concerned why she is not back to baseline since her episode was 2 mo ago. She is unclear if her diabetes is related to her hospitalization or if she was already glucose intolerant. She has been monitoring fasting and evening BG. Labs: Per pt report: A1c: 7.2 FB-120 Meds: Metformin 1000 mg BID; Lantus 20-25 u evening Diet: per 24 hr recall: Generally only eats 2 meals per day around 6 am and 2 pm. Wt: 170 lb Ht: 60 in BMI: 33.2 DX: Altered nutrition related laboratory values related to impaired glucose metabolism, lack of previous exposure to nutrition information as evidenced by pt report, diagnosis of diabetes, previous diet high in refined carbohydrates. Intervention: 1. Completed intake assessment. Discussed barriers to care. 2. Discussed pathophysiology of diabetes. Reviewed A1c and its correlation to blood glucose numbers. Discussed recommended BG ranges. 3. Discussed importance of self-monitoring, how often, and when to check. 4. Reviewed hyper/hypoglycemia and treatment. 5. Reviewed safe disposal of equipment (strip/lancets/insulin needles). 6. Created SMART goals for pt self-care and success. 7. Discussed program curriculum outline and class needs based on individual goals. SMART Goals: 1. Pt would like to lose 10 lb (~5% BW) in the next 3 months through diet and exercise. 2. Pt agreed to monitor fasting blood glucose and alternate 2 hr PP mealtime. Monitor/Evaluate: Anticipate excellent compliance. Pt will attend full DSME program. Exercise and goal setting class scheduled for Mar 28.
== END ==
PROVIDERS: PCP Student in an Organized Health Care Education/Training Program; Visit Provider Student in an Organized Health Care Education/Training Program
DX: E11.22 Type 2 diabetes mellitus with diabetic chronic kidney disease (principal); N18.3 Chronic kidney disease, stage 3 (moderate); Z79.84 Long term (current) use of oral hypoglycemic drugs; E78.5 Hyperlipidemia, unspecified; E66.9 Obesity, unspecified; Z68.33 Body mass index [BMI] 33.0-33.9, adult; Z71.3 Dietary counseling and surveillance
CPT/HCPCS: G0108

== ENCOUNTER → 2019-03-28 10:03 | Outpatient (CLI) | payer MEDICARE, SELFPAY ==
[2019-01-03 13:15] VITALS: BMI 34.9
[2019-01-05 10:35] VITALS: PULSE 57; RESP 16; O2SAT 93
--- NOTE | 2019-03-28 12:13 | DIET.PN ---
Exercise/Lifestyle change (1 hr): 1. Importance of exercise 2. FITT (frequency, intensity, time, type) 3. Strength training tips and guidelines 4. Glucose monitoring/ranges before and after 5. Proper foot attire 6. Developing strategies for behavior change 7. SMART Goal Setting 8. Home exercise routine demonstration (as a class)
== END ==
PROVIDERS: PCP Student in an Organized Health Care Education/Training Program; Visit Provider Student in an Organized Health Care Education/Training Program
DX: E11.22 Type 2 diabetes mellitus with diabetic chronic kidney disease (principal); N18.3 Chronic kidney disease, stage 3 (moderate); E78.5 Hyperlipidemia, unspecified; Z71.3 Dietary counseling and surveillance
CPT/HCPCS: G0109

== ENCOUNTER → 2019-03-28 11:59 | Outpatient (CLI) | payer MEDICARE, SELFPAY ==
[2019-01-03 13:15] VITALS: BMI 34.9
[2019-01-05 10:35] VITALS: PULSE 57; RESP 16; O2SAT 93
--- NOTE | 2019-03-28 12:00 | DI.MG.S_ITS ---
BILATERAL DIGITAL SCREENING MAMMOGRAM 3D/2D WITH CAD: 03/28/2019 CLINICAL: Routine screening. Comparison is made to exams dated: 07/05/2015 mammogram, 07/03/2014 mammogram, and 05/12/2010 mammogram - [facility]. There are scattered fibroglandular elements in both breasts. Current study was also evaluated with a Computer Aided Detection (CAD) system. There are benign vascular calcifications in both breasts. No significant masses, calcifications, or other findings are seen in either breast. There has been no significant interval change. IMPRESSION: There is no mammographic evidence of malignancy. A 1 year screening mammogram is recommended. This exam was interpreted at Station ID: [id number]. NOTE: For mammograms, a report in lay terms will be sent to the patient. Approximately 15% of breast malignancies will not be visualized mammographically. In the management of a palpable breast mass, a negative mammogram must not discourage biopsy of a clinically suspicious lesion. Electronically Signed By: Woodrow munoz/yanni:03/28/2019 18:51:58 letter sent: Normal Exam ACR BI-RADS Category 2: Benign Finding(s) 3342F
== END ==
PROVIDERS: PCP Student in an Organized Health Care Education/Training Program; Visit Provider Student in an Organized Health Care Education/Training Program
DX: Z12.31 Encounter for screening mammogram for malignant neoplasm of breast (principal)
CPT/HCPCS: 77063; 77067

== ENCOUNTER → 2019-04-01 14:24 | Outpatient (CLI) | payer MEDICARE, SELFPAY ==
[2019-01-03 13:15] VITALS: BMI 34.9
[2019-01-05 10:35] VITALS: PULSE 57; RESP 16; O2SAT 93
--- NOTE | 2019-04-01 16:01 | DIET.PN ---
Diabetes: Healthy Eating 1 Intervention: ?Discussed pathophysiology of diabetes and impact of nutrition/diet on blood sugar control.? Discussed fed versus non-fed state.?? ?Reviewed importance of Balance, Variety, and Moderation. ?Discussed the effect of carbohydrates/protein/fat on blood sugar control.? ?Stressed importance of consistent carbohydrate intake at each meal and provided instructions for recommended servings/portions of carbohydrates/protein per meal. Provided educational material. ?Reviewed carbohydrate counting and measuring carbohydrate content via serving sizes and reading nutrition labels.? Provided handouts.?? ?Discussed the difference between simple versus complex carbohydrates and the effect of fiber on blood sugar control.? Discussed various methods to increase fiber content in diet. ?Discussed the plate method for creating more carbohydrate conscious balanced meals. ?Stressed importance of meal timing and not going >4-5 hours between meals. Encouraged adding protein to evening snack to support glucose control overnight. ?Discussed importance of making dietary habits part of lifestyle change.
== END ==
PROVIDERS: PCP Student in an Organized Health Care Education/Training Program; Visit Provider Student in an Organized Health Care Education/Training Program
DX: E11.22 Type 2 diabetes mellitus with diabetic chronic kidney disease (principal); N18.3 Chronic kidney disease, stage 3 (moderate); E78.5 Hyperlipidemia, unspecified; Z71.3 Dietary counseling and surveillance
CPT/HCPCS: G0109

== ENCOUNTER → 2019-06-20 09:52 | Outpatient (CLI) | payer MEDICARE, SELFPAY ==
[2019-01-03 13:15] VITALS: BMI 34.9
[2019-01-05 10:35] VITALS: PULSE 57; RESP 16; O2SAT 93
[2019-06-20 12:21] LABS: Hemoglobin A1C% w Est Avg Glu 7.3 % (4.0-6.0)
[2019-06-20 13:07] LABS: TSH w/ Reflex to FT4 0.66 uIU/mL (0.47-4.68)
== END ==
PROVIDERS: PCP Student in an Organized Health Care Education/Training Program; Referring Provider Student in an Organized Health Care Education/Training Program; Visit Provider Student in an Organized Health Care Education/Training Program
DX: E07.81 Sick-euthyroid syndrome (principal); E11.9 Type 2 diabetes mellitus without complications
CPT/HCPCS: 36415; 83036; 84443

== ENCOUNTER → 2019-06-20 09:54 | Outpatient (CLI) | payer MEDICARE, SELFPAY ==
[2019-01-03 13:15] VITALS: BMI 34.9
[2019-01-05 10:35] VITALS: PULSE 57; RESP 16; O2SAT 93
--- NOTE | 2019-06-20 12:06 | DIET.PN ---
Diabetes Physiology: Intervention 1. Diabetes physiology 2. Detecting and treatment of acute and chronic complications 3. Diagnosis of and difference in types of diabetes 4. Self-monitoring and pattern management a. Demonstrate glucometer and control testing b. Explain BG results and action to take when out of range. 5. Foot , eye, dental care 6. Medications a. Oral medication classification b. Injectable c. Insulin i. Injection protocol ii. Other delivery methods
== END ==
PROVIDERS: PCP Student in an Organized Health Care Education/Training Program; Referring Provider Student in an Organized Health Care Education/Training Program; Visit Provider Student in an Organized Health Care Education/Training Program
DX: E11.22 Type 2 diabetes mellitus with diabetic chronic kidney disease (principal); N18.3 Chronic kidney disease, stage 3 (moderate); E78.5 Hyperlipidemia, unspecified; E07.81 Sick-euthyroid syndrome; Z71.3 Dietary counseling and surveillance
CPT/HCPCS: 36415; 83036; 84443; G0109

== ENCOUNTER → 2019-10-07 13:00 | Outpatient (CLI) | payer MEDICARE, SELFPAY ==
[2019-01-03 13:15] VITALS: BMI 34.9
[2019-01-05 10:35] VITALS: PULSE 57; RESP 16; O2SAT 93
--- NOTE | 2019-10-07 13:01 | DI.RAD.S_ITS ---
PROCEDURE: XR WRIST LT MIN 3V INDICATIONS: left wrist and hand pain, swelling TECHNIQUE: 4 views of the wrist were acquired. COMPARISON: [facility], , WRIST MINIMUM 3 VIEWS RIGHT, 12/14/2009, 11:51. FINDINGS: Bones: No fractures or dislocations. No suspicious bony lesions. First CMC and triscaphe joint degeneration Soft tissues: No suspicious soft tissue calcifications. IMPRESSION: Left wrist joint degeneration as above. Dictated by: Herber Paul M.D. on 10/07/2019 at 16:33 Approved by: Herber Paul M.D. on 10/07/2019 at 16:35
--- NOTE | 2019-10-07 13:01 | DI.RAD.S_ITS ---
PROCEDURE: XR HAND LT MIN 3V INDICATIONS: left wrist and hand pain, swelling TECHNIQUE: 3 views of the hand(s) acquired. COMPARISON: None. FINDINGS: Bones: No fractures or dislocations. Carpal bones are normally aligned. No suspicious bony lesions. Small calcification at the third MCP joint. First CMC and triscaphe joint degeneration . diffuse interphalangeal joint degeneration. Possible hooklike osteophyte developing at the third metacarpal head. Chronic appearing ununited osteophyte at the DIP joint of the little finger. IMPRESSION: Chronic degenerative changes as above. No fracture. Dictated by: Herber Paul M.D. on 10/07/2019 at 16:30 Approved by: Herber Paul M.D. on 10/07/2019 at 16:33
== END ==
PROVIDERS: PCP Student in an Organized Health Care Education/Training Program; Referring Provider Nurse Practitioner; Visit Provider Nurse Practitioner
DX: M25.532 Pain in left wrist (principal); M79.642 Pain in left hand; M18.12 Unilateral primary osteoarthritis of first carpometacarpal joint, left hand; M19.042 Primary osteoarthritis, left hand; M19.032 Primary osteoarthritis, left wrist
CPT/HCPCS: 73110; 73130

== ENCOUNTER → 2019-11-11 11:38 | Outpatient (CLI) | payer MEDICARE, SELFPAY ==
[2019-01-03 13:15] VITALS: BMI 34.9
[2019-01-05 10:35] VITALS: PULSE 57; RESP 16; O2SAT 93
[2019-11-11 12:25] LABS: Add Manual Diff / Slide Review NO; Basophils Absolute Auto 100 /uL (0-100); Basophils Percent Auto 0.9 % (0-2); Eosinophils Absolute Auto 100 /uL (0-450); Eosinophils Percent Auto 1.5 % (2-4); Hematocrit 31.9 % (36-46); Hemoglobin 10.3 g/dL (12.0-16.0); Lymphocytes Absolute Auto 1200 /uL (1100-4500); Lymphocytes Percent Auto 21.7 % (25-40); Mean Corpuscular HGB Conc 32.2 % (30-36); Mean Corpuscular Hemoglobin 25.4 PG (26-34); Mean Corpuscular Volume 78.9 fL (80-100); Monocytes Absolute Auto 400 /uL (0-900); Monocytes Percent Auto 7.4 % (3-14); Neutrophils Absolute Auto 3900 /uL (1500-7000); Neutrophils Percent Auto 68.5 % (50-75); Platelet Count 217 X10^3/uL (150-400); Red Blood Cell Count 4.05 X10^6/uL (4.0-5.2); Red Cell Distribution Width 15.8 % (11.6-14.8); White Blood Cell Count 5.7 X10^3/uL (4.5-11.0)
[2019-11-11 12:32] LABS: Reticulocyte Count, Percent 1.1 % (1.06-2.63)
[2019-11-11 12:36] LABS: Hemoglobin A1C% w Est Avg Glu 7.6 % (4.0-6.0)
[2019-11-11 13:27] LABS: BUN Creatinine Ratio 21.6 (6-22); Blood Urea Nitrogen 27 mg/dL (7-17); Calcium 9.3 mg/dL (8.4-10.2); Carbon Dioxide 27 mmol/L (22-32); Chloride 105 mmol/L (98-107); Glucose 120 mg/dL (80-110); HEMOLYSIS < 15 (0-50); Potassium 4.7 mmol/L (3.4-5.1); Sodium 139 mmol/L (137-145)
[2019-11-11 13:36] LABS: Creatinine Urine Random 73.6 mg/dL
[2019-11-11 13:41] LABS: Microalbumi Creatinin Ratio Ur 20.3 ug/mg CR (<30); Microalbumin Urine Random 1.5 mg/dL (0-1.6)
[2019-11-11 15:39] LABS: Vitamin D 25 Hydroxy (D3) 35.6 ng/mL (30.0-100.0)
[2019-11-12 08:50] LABS: HEMOLYSIS < 15 (0-50); Iron 47 ug/dL (37-170)
[2019-11-12 09:02] LABS: Percent Iron Saturation 15 % (15-50); Total Iron Binding Capacity 308 ug/dL (265-497); Transferrin 249 mg/dL (206-381)
[2019-11-12 09:28] LABS: Ferritin 37 ng/mL (11-264)
== END ==
PROVIDERS: PCP Student in an Organized Health Care Education/Training Program; Referring Provider Student in an Organized Health Care Education/Training Program; Visit Provider Student in an Organized Health Care Education/Training Program
DX: N18.3 Chronic kidney disease, stage 3 (moderate) (principal); D63.1 Anemia in chronic kidney disease; E11.9 Type 2 diabetes mellitus without complications
CPT/HCPCS: 36415; 80048; 82043; 82306; 82570; 82728; 83036; 83540; 83550; 85025; 85045

== ENCOUNTER → 2019-11-26 10:01 | Outpatient (CLI) | payer MEDICARE, SELFPAY ==
[2019-01-03 13:15] VITALS: BMI 34.9
[2019-01-05 10:35] VITALS: PULSE 57; RESP 16; O2SAT 93
== END ==
PROVIDERS: PCP Student in an Organized Health Care Education/Training Program; Referring Provider Student in an Organized Health Care Education/Training Program; Visit Provider Student in an Organized Health Care Education/Training Program
DX: Z78.0 Asymptomatic menopausal state (principal); K50.90 Crohn's disease, unspecified, without complications; N18.3 Chronic kidney disease, stage 3 (moderate); K92.9 Disease of digestive system, unspecified; Z91.89 Other specified personal risk factors, not elsewhere classified; Z87.891 Personal history of nicotine dependence
CPT/HCPCS: 77080

== ENCOUNTER 2019-11-26 16:30 | Emergency (ER) | payer MEDICARE, SELFPAY ==
[2019-01-03 13:15] VITALS: BMI 34.9
[2019-01-05 10:35] VITALS: PULSE 57; RESP 16; O2SAT 93
[2019-11-26] VITALS (11 sets, daily range): BP systolic 151–182; BP diastolic 68–124; PULSE 72–79; RESP 16–45; TEMP 36.9; O2SAT 94–99; BMI 34.2
[2019-11-26] MEDS: FAMOTIDINE 20 MG/50 ML PIGGYBACK 200 MG IV (17:16)
[2019-11-26] MEDS: EPINEPHrine 1 MG/ML 0.3 MG IM (17:16)
[2019-11-26] MEDS: methylPREDNISolone 125 MG/2 ML VIAL IV (17:16)
[2019-11-26] MEDS: SODIUM CHLORIDE 0.9% 500 ML 1000 ML IV (18:10)
--- NOTE | 2019-11-26 18:29 | ED_ITS ---
HPI - Allergic Reaction <SANIA Johnston - Last Filed: 11/26/19 23:05> General Chief complaint: Allergic Reaction Stated complaint: throat and tongue swelling since about 1430 Time Seen by Provider: 11/26/19 16:57 Source: patient and family Mode of arrival: Ambulatory Limitations: no limitations History of Present Illness HPI narrative: This is a 74-year-old female, former smoker, who presents to ED with her friend with chief complain of possible allergy reaction and reports thickening in her tongue and exterior right-sided neck discomfort like from a bug bite and some slight dysphagia. Her friend also states there is a slight change in her voice. Patient had history of angioedema with an intubation for 4 days at ICU stay December last year from using SMITH inhibitor. Patient states I waited too long and had to be intubated. Patient denies swelling to her lips, dyspnea, chest pain, near syncope, nausea or vomiting. Patient reports her symptoms slightly similar to at that time with angioedema episode. Patient reports she had started new medication glipizide about 2 weeks ago otherwise no new medications, food. Related Data Home Medications Medication Instructions Recorded Confirmed Glucose: Home Monitor 0 dev TOPICAL TID 01/03/19 11/11/19 Previous Rx's Medication Instructions Recorded insulin syringe-needle U-100 0.3 #500 each 12/11/17 mL 29 gauge x 1/2 aspirin 81 mg tablet,delayed 81 mg PO DAILY #30 tab 04/10/18 release zolpidem 5 mg tablet 5 mg PO BEDTIME PRN #15 tab 06/13/19 omeprazole 20 mg capsule,delayed 20 mg PO DAILY #90 cap 06/27/19 release atorvastatin 20 mg tablet 20 mg PO QPM #90 tab 08/29/19 Glucose: Test Strips #300 each 10/13/19 metformin 1,000 mg tablet 1,000 mg PO BID #60 tab 10/29/19 glipizide 5 mg tablet 5 mg PO BID #180 tab 11/12/19 insulin glargine 100 unit/mL 20 unit SUBCUT DAILY #10 ml 11/25/19 subcutaneous solution epinephrine 0.3 ml IM Q5-15M PRN #2 each 11/26/19 famotidine [Pepcid] 20 mg PO DAILY #7 tab 11/26/19 prednisone 40 mg PO DAILY 4 Days #8 tab 11/26/19 Allergies Allergy/AdvReac Type Severity Reaction Status Date / Time lisinopril Allergy Severe Swelling Verified 11/11/19 11:18 of Lip/Tongue/Throat Review of Systems <SANIA Johnston - Last Filed: 11/26/19 23:05> Review of Systems Narrative: General: Denies fever, chills, fatigue, malaise, sweats. HEENT: See HPI Respiratory: Denies dyspnea, cough, wheezing, hemoptysis, sputum. Cardiovascular: Denies chest pain, palpitations, orthopnea, edema. Gastrointestinal: Denies nausea, vomiting, abdominal pain, diarrhea, constipation, melena. : Denies dysuria, frequency, incontinence, hematuria, urinary retention. Musculoskeletal: Denies weakness, joint pain or bony pain. Skin: Denies rash, skin lesions, or other. Neurologic: Denies weakness, headache, numbness, change in speech, confusion, seizures, incoordination. Psychiatric: No concerning psychosocial issues. 12-point review of systems is negative except for those stated above. Patient History <SANIA Johnston - Last Filed: 11/26/19 23:05> Medical History Abnormal Pap smear of cervix (Resolved) Crohn's disease (Chronic) Diabetes mellitus (Chronic) Duodenal ulcer (Chronic) GERD (gastroesophageal reflux disease) (Chronic) Hyperlipidemia (Chronic) Left wrist pain (Chronic) Surgical History History of left oophorectomy (Resolved) Status post cone biopsy of cervix (Resolved) Status post laparoscopic cholecystectomy (Resolved) Family History Father Diabetes mellitus Social History household members: none Smoking Status: Former smoker eating out: rarely or never Type(s) of exercise: walking Smoking Status: Former smoker Substance Use Type: does not use Exam <SANIA Johnston - Last Filed: 11/26/19 23:05> Narrative Exam Narrative: GEN: Alert, oriented x 3, well appearing and nourished, and in no acute distress. Head: Normal cephalic, atraumatic. No scalp or temporal tenderness, palpable mass or rash. EYES: Pupils are equal, round, and reactive to light and accommodation. Extraocular muscles are intact bilaterally. There is no subconjunctival hemorrhage, exudate and sclera non-icteric. ENT: Hearing grossly intact. Nose without bleeding, purulent discharge or deviation. Mucous membrane dry, no mucosal lesion. Throat without erythema, tonsillar hypertrophy or exudate. Uvula in midline, airway patent but mild thickening of the tongue. Neck: Trachea in midline. No JVD, non-tender without lymphadenopathy. No masses or thyroid megaly. Supple, non-tender and no meningeal signs. CARDIAC: Normal regular rate and rhythm without murmurs, gallops, or rubs. No chest wall tenderness. No peripheral edema, cyanosis or pallor. Capillary refill is less than 2 seconds. RESPIRATORY: Lungs are clear to auscultate bilaterally. No cough, wheezes, rales, or rhonchi. No stridor, respiratory distress, increase work of breathing, or accessary muscle used. ABD: Abdomen soft, nontender and non-distended. No guarding or rebound tenderness to palpate. Bowel sounds are normal in all 4 quadrants. There is no palpable masses or organomegaly. EXT: Full painless ROM of all extremities with no loss of sensation, strength, effusion or edema. SKIN: Right lower external neck with mild erythema and edema w/o punture/bite wounds. Warm, dry, normal color for patient. BACK: Nontender without deformity or crepitance. No flank tenderness. NEUROLOGICAL: Alert and oriented to place, time and person. Sensation and motor function intact bilaterally. No facial droops, dysphasia. PSYCHIATRIC: Good judgement and reason, without hallucinations, abnormal affect or abnormal behaviors during the examination. Patient is not suicidal. Initial Vital Signs Initial Vital Signs: Vital Signs Temperature 98.5 F 11/26/19 16:38 Pulse Rate 79 11/26/19 16:38 Respiratory Rate 16 11/26/19 16:38 Blood Pressure 163/80 H 11/26/19 16:38 Pulse Oximetry 97 11/26/19 16:38 <Alexandra Rossi, - Last Filed: 11/27/19 08:29> Initial Vital Signs Initial Vital Signs: Vital Signs Temperature 98.5 F 11/26/19 16:38 Pulse Rate 79 11/26/19 16:38 Respiratory Rate 16 11/26/19 16:38 Blood Pressure 163/80 H 11/26/19 16:38 Pulse Oximetry 97 11/26/19 16:38 Scores <[facility] - Last Filed: 11/26/19 23:05> GCS Garrett coma scale eye opening: Spontaneous Garrett coma scale verbal response: Orientated Garrett coma scale motor response: Obey commands [place] coma scale total score: 15 Course <[facility] - Last Filed: 11/26/19 23:05> Orders Ordered: Discontinued Medications Diphenhydramine HCl (Benadryl) 25 mg IV NOW ONE Stop: 11/26/19 17:01 Last Admin: 11/26/19 17:23 Dose: Not Given Documented by: LINETTE Epinephrine HCl (Adrenalin) 0.3 mg IM NOW ONE Stop: 11/26/19 17:09 Last Admin: 11/26/19 17:16 Dose: 0.3 mg Documented by: LINETTE Famotidine (Pepcid) 20 mg in 50 mls @ 200 mls/hr IV NOW ONE Stop: 11/26/19 17:14 Last Infusion: 11/26/19 17:45 Dose: 0 mls/hr Documented by: Admin: 11/26/19 17:16 Dose: 200 mls/hr Documented by: LINETTE Sodium Chloride (Normal Saline 0.9%) 500 mls @ 1,000 mls/hr IV BOLUS ONE Stop: 11/26/19 18:32 Last Infusion: 11/26/19 18:43 Dose: 0 mls/hr Documented by: Admin: 11/26/19 18:10 Dose: 1,000 mls/hr Documented by: LINETTE Methylprednisolone (Solu-Medrol 125 Mg Vial) 125 mg IV NOW ONE Stop: 11/26/19 17:01 Last Admin: 11/26/19 17:16 Dose: 125 mg Documented by: LINETTE Reevaluation(s) Reevaluation #1: speech improving as more clear after the medications Time: 17:50 Reevaluation #2: Reports tongue swelling and dysplasia resolved. Patient is able to tolerate ice chips without difficulty. Voice return to normal. Time: 19:30 Consultations Consultation #1: The patient staffed [facility] Dr. Rossi for treatment plan and findings Time: 16:50 Vital Signs Vital signs: Vital Signs - 8 hr 11/26/19 16:38 11/26/19 17:21 11/26/19 17:30 Temperature 98.5 F Pulse Rate 79 74 74 Respiratory Rate 16 23 Blood Pressure 163/80 H 163/124 H Pulse Oximetry 97 99 99 11/26/19 17:45 11/26/19 18:00 11/26/19 18:15 Temperature Pulse Rate 72 76 76 Respiratory Rate 23 23 23 Blood Pressure 172/75 H 154/75 H 157/74 H Pulse Oximetry 99 98 98 11/26/19 18:30 11/26/19 18:45 11/26/19 19:00 Temperature Pulse Rate 79 79 79 Respiratory Rate 23 45 H 26 H Blood Pressure 151/68 H 163/70 H 156/70 H Pulse Oximetry 99 98 98 11/26/19 19:15 11/26/19 19:22 Temperature Pulse Rate 79 79 Respiratory Rate 42 H 22 Blood Pressure 153/70 H 182/77 H Pulse Oximetry 94 96 <Alexandra Rossi, DO - Last Filed: 11/27/19 08:29> Orders Ordered: Discontinued Medications Diphenhydramine HCl (Benadryl) 25 mg IV NOW ONE Stop: 11/26/19 17:01 Last Admin: 11/26/19 17:23 Dose: Not Given Documented by: LINETTE Epinephrine HCl (Adrenalin) 0.3 mg IM NOW ONE Stop: 11/26/19 17:09 Last Admin: 11/26/19 17:16 Dose: 0.3 mg Documented by: LINETTE Famotidine (Pepcid) 20 mg in 50 mls @ 200 mls/hr IV NOW ONE Stop: 11/26/19 17:14 Last Infusion: 11/26/19 17:45 Dose: 0 mls/hr Documented by: Admin: 11/26/19 17:16 Dose: 200 mls/hr Documented by: LINETTE Sodium Chloride (Normal Saline 0.9%) 500 mls @ 1,000 mls/hr IV BOLUS ONE Stop: 11/26/19 18:32 Last Infusion: 11/26/19 18:43 Dose: 0 mls/hr Documented by: Admin: 11/26/19 18:10 Dose: 1,000 mls/hr Documented by: LINETTE Methylprednisolone (Solu-Medrol 125 Mg Vial) 125 mg IV NOW ONE Stop: 11/26/19 17:01 Last Admin: 11/26/19 17:16 Dose: 125 mg Documented by: LINETTE Vital Signs Vital signs: Vital Signs - 8 hr 11/26/19 16:38 11/26/19 17:21 11/26/19 17:30 Temperature 98.5 F Pulse Rate 79 74 74 Respiratory Rate 16 23 Blood Pressure 163/80 H 163/124 H Pulse Oximetry 97 99 99 11/26/19 17:45 11/26/19 18:00 11/26/19 18:15 Temperature Pulse Rate 72 76 76 Respiratory Rate 23 23 23 Blood Pressure 172/75 H 154/75 H 157/74 H Pulse Oximetry 99 98 98 11/26/19 18:30 11/26/19 18:45 11/26/19 19:00 Temperature Pulse Rate 79 79 79 Respiratory Rate 23 45 H 26 H Blood Pressure 151/68 H 163/70 H 156/70 H Pulse Oximetry 99 98 98 11/26/19 19:15 11/26/19 19:22 Temperature Pulse Rate 79 79 Respiratory Rate 42 H 22 Blood Pressure 153/70 H 182/77 H Pulse Oximetry 94 96 [facility] - Allergic Reaction <Flip CampbellRenaldoSANIA palacio - Last Filed: 11/26/19 23:05> Differential Diagnosis Differential diagnosis: Likely anaphylaxis, allergic reaction and angioedema Medical Records Attestation: I reviewed the patient's medical records. MDM Narrative Medical decision making narrative: This is a 74-year-old female who had angioedema and intubation last year December from using a seen in feeder presents to ED with chief complain of sensation of thickening of her tongue and mild dysphagia which started at 2:30 a.m. when she was in outdoors. Patient reports she had started new medication glipizide 2 weeks ago and otherwise no new products, medications. Patient complain of external right lower neck discomfort and physical exam shows mild erythema with edema but there is no puncture wound or bites appreciated. Patient denies known bee sting or other ve nomous allergies. Patient was medicated with 0.3 mg IM injection, Solu-Medrol 125 mg IV, Pepcid 20 mg IV and patient had taken oral Benadryl 50 mg prior coming into ED. patient was monitored for 3 hours. Patient reports improved voice, tongue swelling, and swallowing and requesting to be discharged to home to catch [facility] to [facility]. Patient discharged to home with prescription for prednisone for additional 4 day course, Pepcid, EpiPen, and advised to use over the counter Benadryl and strict return precautions to return to ED by calling ambulance if her symptoms recur and patient verbalized understanding and agreement with treatment plan. Advised patient to discussed with Dr. Matias about today's visit and glipizide use. It is not clear at this time if her symptoms are related to relatively recent medication glipizide or questionable insect bite on right lower external neck since there is no puncture or bite henning appreciated. Discharge Plan Departure Patient Disposition: Home Clinical Impression: Allergic reaction Qualifiers: Encounter type: initial encounter Qualified Code(s): T78.40XA - Allergy, unspecified, initial encounter Angioedema Qualifiers: Encounter type: initial encounter Qualified Code(s): T78.3XXA - Angioneurotic edema, initial encounter Discharge Date/Time: 11/26/19 19:35 Instructions: DI for Angioedema Activity Restrictions/Additional Instructions: You have been diagnosed with [allergy reaction and symptoms of angioedema which has resolved after medication that has been provided in ED]. What to do: *Take your medications as directed. Please continue to take steroids prednisone 60 mg daily next former days. Pepcid 20 mg daily. Also continue to take Benadryl 25-50 mg up to 4 times a day as needed for your symptoms. This medication have been transmitted to [facility]. *Follow up with your primary care provider in 2-3 days, call for an appointment. Let them know you were seen in the ED and that we asked you to be seen in follow up. I am not sure if new medication glipizide that you have been taking last 2 weeks is the cause for this symptoms. Please call 911 if symptoms recurring such as swelling to her tongue, difficulty swallowing, difficulty breathing, feeling like faint, chest pain. *Return to ED if you have any new, worsening, or concerning symptoms, such as [as above or any acute concerns]. Prescriptions: New prednisone 20 mg tablet 40 mg PO DAILY 4 Days Qty: 8 RF: 0 famotidine [Pepcid] 20 mg tablet 20 mg PO DAILY Qty: 7 RF: 0 epinephrine 0.3 mg/0.3 mL auto-injector 0.3 ml IM Q5-15M PRN (Reason: anaphylaxis) Qty: 2 RF: 0 No Action zolpidem 5 mg tablet 5 mg PO BEDTIME PRN (Reason: insomnia) Qty: 15 RF: 5 omeprazole 20 mg capsule,delayed release(DR/EC) 20 mg PO DAILY Qty: 90 RF: 1 atorvastatin 20 mg tablet 20 mg PO QPM Qty: 90 RF: 0 (DME) Glucose: Test Strips 0 .Route .MEDSUPPLY Qty: 300 RF: 3 metformin [Glucophage] 1,000 mg tablet 1,000 mg PO BID Qty: 60 RF: 0 glipizide 5 mg tablet 5 mg PO BID Qty: 180 RF: 1 Lantus U-100 Insulin 100 unit/mL solution 20 unit SUBCUT DAILY Qty: 10 RF: 11 (DME) insulin syringe-needle U-100 [[facility] Syringes] 0.3 mL 29 gauge x 1/2 syringe See Dose Instructions .ROUTE .MEDSUPPLY Qty: 500 RF: 0 aspirin [Adult Low Dose Aspirin] 81 mg tablet,delayed release (DR/EC) 81 mg PO DAILY Qty: 30 RF: 0 Glucose: Home Monitor 0 dev topical TID RF: 0 Referrals: Yassine Matias MD [Primary Care Provider] - <Alexandra Rossi DO - Last Filed: 11/27/19 08:29> Cosign ED Attending Janette Attestation: I was immediately available in the department for consultation. Documentation has been reviewed. I agree with assessment and plan.
== END 2019-11-26 19:35 | disposition home or self-care (01) ==
PROVIDERS: Emergency Provider Nurse Practitioner Family; PCP Student in an Organized Health Care Education/Training Program
DX: T78.40XA Allergy, unspecified, initial encounter (principal); T78.3XXA Angioneurotic edema, initial encounter
CPT/HCPCS: 96361; 96365; 96372; 96375; 99284; J0171; J2930

== ENCOUNTER → 2020-02-21 12:09 | Outpatient (CLI) | payer MEDICARE, SELFPAY ==
[2019-01-03 13:15] VITALS: BMI 34.9
[2019-01-05 10:35] VITALS: PULSE 57; RESP 16; O2SAT 93
[2020-02-21 13:11] LABS: Hemoglobin 10.4 g/dL (12.0-16.0)
[2020-02-21 13:19] LABS: Hemoglobin A1C% w Est Avg Glu 7.2 % (4.0-6.0)
[2020-02-21 13:26] LABS: BUN Creatinine Ratio 18.5 (6-22); Blood Urea Nitrogen 24 mg/dL (7-17); Estimated Glomerular Filt Rate 40.2 mL/min (>60)
== END ==
PROVIDERS: PCP Student in an Organized Health Care Education/Training Program; Referring Provider Student in an Organized Health Care Education/Training Program; Visit Provider Student in an Organized Health Care Education/Training Program
DX: E11.9 Type 2 diabetes mellitus without complications (principal); N18.30 Chronic kidney disease, stage 3 unspecified
CPT/HCPCS: 36415; 82565; 83036; 84520; 85014; 85018

== ENCOUNTER → 2020-03-24 14:57 | Outpatient (CLI) | payer MEDICARE, SELFPAY ==
[2019-01-03 13:15] VITALS: BMI 34.9
[2019-01-05 10:35] VITALS: PULSE 57; RESP 16; O2SAT 93
[2020-03-24 15:25] LABS: BUN Creatinine Ratio 19.7 (6-22); Blood Urea Nitrogen 24 mg/dL (7-17); Estimated Glomerular Filt Rate 43.2 mL/min (>60)
[2020-03-24 15:30] LABS: Hematocrit 34.9 % (36-46); Hemoglobin 10.8 g/dL (12.0-16.0)
[2020-03-24 15:31] LABS: Occult Blood 1 Negative (Negative)
[2020-03-24 15:36] LABS: Hemoglobin A1C% w Est Avg Glu 7.3 % (4.0-6.0)
== END ==
PROVIDERS: Internal Medicine; PCP Student in an Organized Health Care Education/Training Program; Referring Provider Student in an Organized Health Care Education/Training Program; Visit Provider Student in an Organized Health Care Education/Training Program
DX: E11.9 Type 2 diabetes mellitus without complications (principal); D63.1 Anemia in chronic kidney disease; N18.30 Chronic kidney disease, stage 3 unspecified; R10.9 Unspecified abdominal pain
CPT/HCPCS: 36415; 82270; 82565; 83036; 84520; 85014; 85018

== ENCOUNTER → 2020-03-25 11:41 | Outpatient (CLI) | payer MEDICARE, SELFPAY ==
[2019-01-03 13:15] VITALS: BMI 34.9
[2019-01-05 10:35] VITALS: PULSE 57; RESP 16; O2SAT 93
== END ==
PROVIDERS: PCP Student in an Organized Health Care Education/Training Program; Referring Provider Student in an Organized Health Care Education/Training Program; Visit Provider Internal Medicine
DX: R10.9 Unspecified abdominal pain (principal); Z53.9 Procedure and treatment not carried out, unspecified reason

== ENCOUNTER → 2020-04-07 14:58 | Outpatient (CLI) | payer MEDICARE, SELFPAY ==
[2019-01-03 13:15] VITALS: BMI 34.9
[2019-01-05 10:35] VITALS: PULSE 57; RESP 16; O2SAT 93
--- NOTE | 2020-04-07 15:01 | DI.CT.S_ITS ---
PROCEDURE: CT ABDOMEN PELVIS W CON INDICATIONS: Abdominal pain TECHNIQUE: After the administration of intravenous contrast, 5 mm thick sections acquired from the diaphragm to the symphysis. 5 mm coronal and sagittal reformats were acquired. For radiation dose reduction, the following was used: automated exposure control, adjustment of mA and/or kV according to patient size. COMPARISON: [facility], CT, ABDOMEN/PELVIS WITH CONTRAST, 12/26/2014, 9:55. FINDINGS: Image quality: Excellent. ABDOMEN: Lung bases: Lung bases are clear. Heart size is normal. Solid organs: Liver is normal in size and enhancement. Gallbladder is surgically absent . Biliary system is non dilated. 3 mm low-density focus within the uncinate process of the pancreas is unchanged. Pancreas otherwise enhances normally. Spleen is normal in size and enhancement. No adrenal nodules. Kidneys demonstrate normal size and enhancement, without hydronephrosis. Peritoneum and bowel: Bowel loops demonstrate normal wall thickness and caliber. No free fluid or air. Normal appendix. Nodes and vessels: No retroperitoneal or mesenteric adenopathy by size criteria. Aorta and inferior vena cava are normal in size. Miscellaneous: No ventral hernias. PELVIS: Genitourinary: Bladder wall thickness is normal. Miscellaneous: No inguinal hernias or adenopathy. Bones: No suspicious bony lesions. No vertebral body compression fractures. Bilateral L5-S1 pars interarticularis defects are present. IMPRESSION: 1. No acute process. 2. 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 3. Normal appendix. 4. Bilateral L5-S1 pars interarticularis defects. Dictated by: Rocky Rangel M.D. on 04/07/2020 at 15:34 Approved by: Rocky Rangel M.D. on 04/07/2020 at 15:36
== END ==
PROVIDERS: PCP Student in an Organized Health Care Education/Training Program; Referring Provider Student in an Organized Health Care Education/Training Program; Visit Provider Student in an Organized Health Care Education/Training Program
DX: R10.9 Unspecified abdominal pain (principal); K52.9 Noninfective gastroenteritis and colitis, unspecified
CPT/HCPCS: 74177

== ENCOUNTER → 2020-05-01 14:26 | Outpatient (CLI) | payer MEDICARE, SELFPAY ==
[2019-01-03 13:15] VITALS: BMI 34.9
[2019-01-05 10:35] VITALS: PULSE 57; RESP 16; O2SAT 93
--- NOTE | 2020-05-01 | DI.MG.S_ITS ---
BILATERAL DIGITAL SCREENING MAMMOGRAM 3D/2D WITH CAD: 05/01/2020 CLINICAL: Routine screening. Comparison is made to exams dated: 03/28/2019 mammogram, 07/05/2015 mammogram, and 07/03/2014 mammogram - [facility]. There are scattered fibroglandular elements in both breasts. Current study was also evaluated with a Computer Aided Detection (CAD) system. There are benign vascular calcifications in both breasts. No significant masses, calcifications, or other findings are seen in either breast. There has been no significant interval change. IMPRESSION: BENIGN There is no mammographic evidence of malignancy. A 1 year screening mammogram is recommended. This exam was interpreted at Station ID: [id number]. NOTE: For mammograms, a report in lay terms will be sent to the patient. Approximately 15% of breast malignancies will not be visualized mammographically. In the management of a palpable breast mass, a negative mammogram must not discourage biopsy of a clinically suspicious lesion. Electronically Signed By: Brant Pérez M.D., jr/yanni:05/03/2020 09:10:25 letter sent: Normal Exam ACR BI-RADS Category 2: Benign Finding(s) 3342F
== END ==
PROVIDERS: PCP Student in an Organized Health Care Education/Training Program; Referring Provider Student in an Organized Health Care Education/Training Program; Visit Provider Student in an Organized Health Care Education/Training Program
DX: Z12.31 Encounter for screening mammogram for malignant neoplasm of breast (principal)
CPT/HCPCS: 77063; 77067

== ENCOUNTER → 2020-07-08 16:01 | Outpatient (CLI) | payer MEDICARE, SELFPAY ==
[2019-01-03 13:15] VITALS: BMI 34.9
[2019-01-05 10:35] VITALS: PULSE 57; RESP 16; O2SAT 93
[2020-07-08 16:25] LABS: Add Manual Diff / Slide Review NO; Appearance Urine UA CLEAR; Basophils Absolute Auto 100 /uL (0-100); Basophils Percent Auto 1.1 % (0-2); Bilirubin Urine UA NEGATIVE (NEGATIVE); Color Urine UA YELLOW; Eosinophils Absolute Auto 100 /uL (0-450); Eosinophils Percent Auto 1.8 % (2-4); Glucose Urine UA NEGATIVE (Negative); Hematocrit 33.1 % (36-46); Hemoglobin 10.6 g/dL (12.0-16.0); Ketones Urine UA NEGATIVE (NEGATIVE); Leukocyte Esterase Urine UA 2+ (NEGATIVE); Lymphocytes Absolute Auto 1400 /uL (1100-4500); Lymphocytes Percent Auto 24.1 % (25-40); Mean Corpuscular HGB Conc 31.9 % (30-36); Mean Corpuscular Volume 78.2 fL (80-100); Monocytes Absolute Auto 400 /uL (0-900); Monocytes Percent Auto 6.4 % (3-14); Neutrophils Absolute Auto 4000 /uL (1500-7000); Neutrophils Percent Auto 66.6 % (50-75); Nitrite Urine UA NEGATIVE (Negative); Occult Blood Urine UA 1+ (Negative); Platelet Count 229 X10^3/uL (150-400); Protein Urine UA NEGATIVE (Negative); Red Blood Cell Count 4.24 X10^6/uL (4.0-5.2); Specific Gravity Urine UA 1.025 (1.000-1.035); Urobilinogen Urine UA 0.2 E.U./dL (0.2)
[2020-07-08 16:39] LABS: Alanine Aminotransferase 15 IU/L (<35); Albumin 4.2 g/dL (3.5-5.0); Albumin Globulin Ratio 1.4 (1.0-2.8); Alkaline Phosphatase 68 U/L (38-126); Aspartate Aminotransferase 22 IU/L (14-36); BUN Creatinine Ratio 20.6 (6-22); Bilirubin Total 0.2 mg/dL (0.2-1.3); Blood Urea Nitrogen 28 mg/dL (7-17); Calcium 9.2 mg/dL (8.4-10.2); Carbon Dioxide 25 mmol/L (22-32); Chloride 103 mmol/L (98-107); Glucose 239 mg/dL (80-110); HEMOLYSIS < 15 (0-50); Magnesium 1.5 mg/dL (1.6-2.3); Potassium 4.2 mmol/L (3.4-5.1); Sodium 137 mmol/L (137-145); Total Protein 7.2 g/dL (6.3-8.2)
[2020-07-08 16:55] LABS: pH Urine UA 5.5 (4.5-8.0)
[2020-07-08 18:06] LABS: Bacteria Urine Few (2-10); Culture Indicated Urine Specimen Cultured; RBC Urine 1-5/HPF (0-5/HPF); Renal Epithelial Cells Urine 0-1/HPF (0-1/HPF); Squamous Epithelial Cell Urine 0-1 /HPF (0-5/HPF); Transitional Epi Cells Urine 0-1/HPF (0-5/HPF); WBC Urine 30-100/HPF (0-5/HPF)
== END ==
PROVIDERS: PCP Family Medicine; Referring Provider Family Medicine; Visit Provider Family Medicine
DX: E11.21 Type 2 diabetes mellitus with diabetic nephropathy (principal); N18.32 Chronic kidney disease, stage 3b; D63.1 Anemia in chronic kidney disease; E78.00 Pure hypercholesterolemia, unspecified; I10 Essential (primary) hypertension; N18.9 Chronic kidney disease, unspecified; N18.30 Chronic kidney disease, stage 3 unspecified
CPT/HCPCS: 36415; 80053; 81001; 83735; 85025; 87086

== ENCOUNTER → 2020-08-14 09:39 | Outpatient (CLI) | payer MEDICARE, SELFPAY ==
[2019-01-03 13:15] VITALS: BMI 34.9
[2019-01-05 10:35] VITALS: PULSE 57; RESP 16; O2SAT 93
[2020-08-14 12:25] LABS: COVID19 -Nasal RAPID Negative (Negative)
== END ==
PROVIDERS: PCP Family Medicine; Visit Provider Physician Assistant
DX: Z20.822 Contact with and (suspected) exposure to COVID-19 (principal)
CPT/HCPCS: 87635; C9803

== ENCOUNTER 2020-08-17 07:00 | Day surgery (SDC) | payer MEDICARE, SELFPAY ==
[2019-01-03 13:15] VITALS: BMI 34.9
[2019-01-05 10:35] VITALS: PULSE 57; RESP 16; O2SAT 93
[2020-08-17] MEDS: CATARACT EYE COMPOUND (10 DROPS/SYRINGE) 3 DROPS EYE-OP (07:35)
[2020-08-17] MEDS: PROPARACAINE 0.5% OPHTH SOL 2 DROPS EYE-OP (07:35)
[2020-08-17 07:42] VITALS: BP 172/73; PULSE 7; RESP 16; TEMP 36.4; O2SAT 100; BMI 34.9
--- NOTE | 2020-08-17 08:59 | P.OP_ITS ---
Operative Date/Time/Diagnoses Pre-op diagnosis: Nuclear Cataract Left eye Post-op diagnosis: same Procedure & Clinicians Same procedure as scheduled: Yes Surgeon: Missael Al Anesthesia Type: MAC +/- and Sedation Operative Notes Procedure in detail: Patient brought to the operating suite. Tetracaine drops placed in the left eye. Patient was prepped and draped in sterile manner. Wire lid speculum was placed in the eye. Betadine drops were placed on the eye. This was irrigated. Lidocaine jelly was placed on the eye. A paracentesis port was created with a side-port blade. 0.1 mL 1% preservative free lidocaine was injected into the anterior chamber. The anterior chamber was deepened with viscoelastic. 2.6 mm keratome was used to create a temporal clear corneal incision. Cystotome and Utrata forceps were used to create continuous tear capsulorrhexis. Balanced salt solution was used to hydro dissect the nucleus. The phacoemulsification handpiece was inserted and the nucleus was removed using the stop and chop technique. The irrigation aspiration handpiece was inserted and the remaining cortex was removed. Anterior chamber was deepened with viscoe lastic. An Licea ZCB00 intraocular lens with a power of 22.0 was injected into the capsular bag. Irrigation aspiration handpiece was inserted and the remaining viscoelastic was removed. Incision was hydrated with balanced salt solution and found to be leak free with pressure with Weck-Elida sponges. 0.1 mL Vigamox injected anterior chamber. 0.3 mL Kenalog 10 mg was injected subconjunctivally. Lid speculum was removed. The patient left the operating room in excellent condition. Complications: none Post-operative Condition: stable Disposition: same day surgery
--- NOTE | 2020-08-17 08:59 | PM.PREOP ---
Pre-operative Note Interval Note History & Physical reviewed/Exam performed by Physician: Yes Changes to H&P: No
[2020-08-17] MEDS: PHENYLEPHRINE/LIDOCAINE VIAL (OR) 0.2 ML EYE-OP (09:14)
[2020-08-17] MEDS: MOXIFLOXACIN INJ 4 MG/0.8 ML VIAL 0.5 MG EYE-OP (09:14)
[2020-08-17] MEDS: TETRACAINE 0.5% OPHTH DROPS 4 ML 2 DROPS EYE-OP (09:15)
[2020-08-17] MEDS: CHONDROIDTIN/SOD HYALURONATE 1.05 ML SYRINGE INTRAOCULA (09:15)
[2020-08-17] MEDS: LIDOCAINE 2% (GLYDO) 6 ML GEL TOP (09:15)
[2020-08-17] MEDS: TRIAMCINOLONE 50 MG/5 ML VIAL INJ (09:15)
[2020-08-17] MEDS: BALANCED SALT IRRIG SOLN NO.2 500 ML, EPINEPHrine 1 MG IRR (09:15)
[2020-08-17 09:31] VITALS: BP 132/76; PULSE 72; RESP 16; TEMP 36.6; O2SAT 97
--- NOTE | 2020-08-17 09:36 | SUR.PHASEII ---
L eye white portion swollen, awaiting dr Al to see. Pt denies pain/discomfort.
[2020-08-17 10:07] VITALS: BP 132/74; PULSE 69; RESP 16; TEMP 36.6; O2SAT 99
== END 2020-08-17 10:10 | disposition home or self-care (01) ==
PROVIDERS: PCP Family Medicine; Referring Provider Family Medicine; Visit Provider Ophthalmology
PROC: (CPT 66984; principal; 2020-08-17 09:15)
DX: H25.12 Age-related nuclear cataract, left eye (principal); E11.9 Type 2 diabetes mellitus without complications; Z79.4 Long term (current) use of insulin; D64.9 Anemia, unspecified; R51.9 Headache, unspecified; E78.5 Hyperlipidemia, unspecified
CPT/HCPCS: 66984; J0171; J2250; J3010; J3301

== ENCOUNTER → 2020-08-28 11:15 | Outpatient (CLI) | payer MEDICARE, SELFPAY ==
[2019-01-03 13:15] VITALS: BMI 34.9
[2019-01-05 10:35] VITALS: PULSE 57; RESP 16; O2SAT 93
[2020-08-28 12:49] LABS: COVID19 -Nasal RAPID Negative (Negative)
== END ==
PROVIDERS: PCP Family Medicine; Referring Provider Student in an Organized Health Care Education/Training Program; Visit Provider Student in an Organized Health Care Education/Training Program
DX: Z01.812 Encounter for preprocedural laboratory examination (principal); Z20.822 Contact with and (suspected) exposure to COVID-19
CPT/HCPCS: 87635; C9803

== ENCOUNTER 2020-08-31 07:11 | Day surgery (SDC) | payer MEDICARE, SELFPAY ==
[2019-01-03 13:15] VITALS: BMI 34.9
[2019-01-05 10:35] VITALS: PULSE 57; RESP 16; O2SAT 93
[2020-08-31 07:38] VITALS: BP 156/71; PULSE 66; RESP 14; TEMP 36.1; O2SAT 100; BMI 34.2
[2020-08-31] MEDS: PROPARACAINE 0.5% OPHTH SOL 2 DROPS EYE-OP (07:57)
[2020-08-31] MEDS: CATARACT EYE COMPOUND (10 DROPS/SYRINGE) 3 DROPS EYE-OP (07:57)
--- NOTE | 2020-08-31 09:07 | PM.PREOP ---
Pre-operative Note Interval Note History & Physical reviewed/Exam performed by Physician: Yes Changes to H&P: No
--- NOTE | 2020-08-31 09:08 | PM.OP.1 ---
Operative Date/Time/Diagnoses Pre-op diagnosis: Nuclear cataract right eye Procedure & Clinicians Procedure: Cataract Surgery Same procedure as scheduled: Yes Surgeon: Missael Al Anesthesia Type: MAC +/- and Sedation Operative Notes Procedure in detail: Patient brought to the operating suite. Tetracaine drops placed in the right eye. Patient was prepped and draped in sterile manner. Wire lid speculum was placed in the eye. Betadine drops were placed on the eye. This was irrigated. Lidocaine jelly was placed on the eye. A paracentesis port was created with a side-port blade. 0.1 mL 1% preservative free lidocaine was injected into the anterior chamber. The anterior chamber was deepened with viscoelastic. 2.6 mm keratome was used to create a temporal clear corneal incision. Cystotome and Utrata forceps were used to create continuous tear capsulorrhexis. Balanced salt solution was used to hydro dissect the nucleus. The phacoemulsification handpiece was inserted and the nucleus was removed using the stop and chop technique. The irrigation aspiration handpiece was inserted and the remaining cortex was removed. Anterior chamber was deepened with viscoelastic. An Licea ZCB00 intraocular lens with a power of 22.0 was injected into the capsular bag. Irrigation aspiration handpiece was inserted and the remaining viscoelastic was removed. Incision was hydrated with balanced salt solution and found to be leak free with pressure with Weck-Elida sponges. 0.1 mL Vigamox injected anterior chamber. 0.3 mL Kenalog 10 mg was injected subconjunctivally. Lid speculum was removed. The patient left the operating room in excellent condition. Complications: none Post-operative Condition: stable Disposition: same day surgery
[2020-08-31] MEDS: PHENYLEPHRINE/LIDOCAINE VIAL (OR) 0.2 ML EYE-OP (09:24)
[2020-08-31] MEDS: TRIAMCINOLONE 50 MG/5 ML VIAL INJ (09:25)
[2020-08-31] MEDS: MOXIFLOXACIN INJ 4 MG/0.8 ML VIAL 0.5 MG EYE-OP (09:25)
[2020-08-31] MEDS: LIDOCAINE 2% (GLYDO) 6 ML GEL TOP (09:25)
[2020-08-31] MEDS: CHONDROIDTIN/SOD HYALURONATE 1.05 ML SYRINGE INTRAOCULA (09:25)
[2020-08-31] MEDS: BALANCED SALT IRRIG SOLN NO.2 500 ML, EPINEPHrine 1 MG IRR (09:26)
[2020-08-31] MEDS: TETRACAINE 0.5% OPHTH DROPS 4 ML 2 DROPS EYE-OP (09:26)
[2020-08-31 09:42] VITALS: BP 144/77; PULSE 67; RESP 16; TEMP 36.1; O2SAT 98
== END 2020-08-31 09:44 | disposition home or self-care (01) ==
PROVIDERS: PCP Family Medicine; Referring Provider Family Medicine; Visit Provider Ophthalmology
PROC: (CPT 66984; principal; 2020-08-31 09:15)
DX: H25.11 Age-related nuclear cataract, right eye (principal); E11.9 Type 2 diabetes mellitus without complications; Z79.4 Long term (current) use of insulin; D64.9 Anemia, unspecified; E78.00 Pure hypercholesterolemia, unspecified
CPT/HCPCS: 66984; 82962; J0171; J2250; J3010; J3301

== ENCOUNTER → 2020-10-19 12:36 | Outpatient (CLI) | payer MEDICARE, SELFPAY ==
[2019-01-03 13:15] VITALS: BMI 34.9
[2019-01-05 10:35] VITALS: PULSE 57; RESP 16; O2SAT 93
[2020-10-19 13:30] LABS: Hemoglobin A1C% w Est Avg Glu 8.5 % (4.0-6.0)
[2020-10-19 13:35] LABS: HEMOLYSIS < 15 (0-50); Iron 44 ug/dL (37-170)
[2020-10-19 13:47] LABS: Percent Iron Saturation 14 % (15-50); Total Iron Binding Capacity 305 ug/dL (265-497); Transferrin 247 mg/dL (206-381)
--- NOTE | 2020-10-19 13:50 | DI.RAD.S_ITS ---
PROCEDURE: XR FOOT RT MIN 3V INDICATIONS: Right foot pain TECHNIQUE: 3 views of the foot were acquired. COMPARISON: [facility], , FOOT 3V LEFT, 08/06/2009, 16:06. FINDINGS: Bones: No fractures or dislocations. No suspicious bony lesions. Mild hallux valgus metatarsus prima varus alignment and medial bunion. Severe 1st MTP and diffuse interphalangeal joint space narrowing with periarticular osteophyte formation. Prominent retrocalcaneal bone spur. Soft tissues: No tibiotalar joint effusion. Achilles tendon appears normal. IMPRESSION: 1. Hallux valgus alignment and medial bunion. 2. 1st MTP and diffuse interphalangeal joint degeneration. 3. Calcaneal enthesopathy. Dictated by: Geovani Ragland [facility] Interpreted: Tramaine Juarez MD on 10/19/2020 at 14:05 Transcribed by: FLO on 10/19/2020 at 14:06 Approved by: Tramaine Juarez M.D. on 10/19/2020 at 15:37
[2020-10-19 14:12] LABS: TSH w/ Reflex to FT4 0.93 uIU/mL (0.47-4.68)
[2020-10-19 14:15] LABS: Ferritin 30 ng/mL (11-264)
[2020-10-19 16:20] LABS: Microalbumi Creatinin Ratio Ur 49.5 ug/mg CR (<30); Microalbumin Urine Random 5.7 mg/dL (0-1.6)
== END ==
PROVIDERS: PCP Family Medicine; Referring Provider Family Medicine; Visit Provider Family Medicine
DX: E11.21 Type 2 diabetes mellitus with diabetic nephropathy (principal); D63.1 Anemia in chronic kidney disease; E78.00 Pure hypercholesterolemia, unspecified; I10 Essential (primary) hypertension; N18.30 Chronic kidney disease, stage 3 unspecified; M79.671 Pain in right foot; S93.601A Unspecified sprain of right foot, initial encounter
CPT/HCPCS: 36415; 73630; 82043; 82570; 82728; 83036; 83540; 83550; 84443

== ENCOUNTER → 2020-12-30 12:56 | Outpatient (CLI) | payer MEDICARE, SELFPAY ==
[2019-01-03 13:15] VITALS: BMI 34.9
[2019-01-05 10:35] VITALS: PULSE 57; RESP 16; O2SAT 93
[2020-12-30 14:22] LABS: Add Manual Diff / Slide Review NO; Basophils Absolute Auto 100 /uL (0-100); Basophils Percent Auto 1.1 % (0-2); Eosinophils Absolute Auto 100 /uL (0-450); Eosinophils Percent Auto 1.6 % (2-4); Hematocrit 31.5 % (36-46); Hemoglobin 10.1 g/dL (12.0-16.0); Lymphocytes Absolute Auto 1300 /uL (1100-4500); Lymphocytes Percent Auto 23.2 % (25-40); Mean Corpuscular HGB Conc 32.1 % (30-36); Mean Corpuscular Hemoglobin 25.8 PG (26-34); Mean Corpuscular Volume 80.3 fL (80-100); Monocytes Absolute Auto 400 /uL (0-900); Monocytes Percent Auto 7.3 % (3-14); Neutrophils Absolute Auto 3900 /uL (1500-7000); Neutrophils Percent Auto 66.8 % (50-75); Platelet Count 214 X10^3/uL (150-400); Red Blood Cell Count 3.92 X10^6/uL (4.0-5.2); Red Cell Distribution Width 15.1 % (11.6-14.8); White Blood Cell Count 5.8 X10^3/uL (4.5-11.0)
[2020-12-30 14:35] LABS: BUN Creatinine Ratio 19.2 (6-22); Blood Urea Nitrogen 25 mg/dL (7-17); Calcium 9.3 mg/dL (8.4-10.2); Carbon Dioxide 25 mmol/L (22-32); Chloride 106 mmol/L (98-107); Glucose 173 mg/dL (80-110); HEMOLYSIS < 15 (0-50); Potassium 4.6 mmol/L (3.4-5.1); Sodium 140 mmol/L (137-145)
[2020-12-30 15:13] LABS: Hemoglobin A1C% w Est Avg Glu 8.4 % (4.0-6.0)
[2020-12-30 16:33] LABS: Creatinine Urine Random 112.3 mg/dL; Protein (Total) Urine Random 14 mg/dL (0-12); Protein Creatinine Ratio Urine 0.12 GRAM/24H
[2020-12-30 17:15] LABS: BUN Creatinine Ratio 19.2 (6-22); Blood Urea Nitrogen 25 mg/dL (7-17); Calcium 9.3 mg/dL (8.4-10.2); Carbon Dioxide 25 mmol/L (22-32); Chloride 106 mmol/L (98-107); Glucose 173 mg/dL (80-110); Potassium 4.6 mmol/L (3.4-5.1); Sodium 140 mmol/L (137-145)
[2020-12-30 17:17] LABS: Hematocrit 31.5 % (36-46); Hemoglobin 10.1 g/dL (12.0-16.0); Mean Corpuscular HGB Conc 32.1 % (30-36); Mean Corpuscular Hemoglobin 25.8 PG (26-34); Mean Corpuscular Volume 80.3 fL (80-100); Platelet Count 214 X10^3/uL (150-400); Red Blood Cell Count 3.92 X10^6/uL (4.0-5.2); Red Cell Distribution Width 15.1 % (11.6-14.8); White Blood Cell Count 5.8 X10^3/uL (4.5-11.0)
[2020-12-30 17:18] LABS: Add Manual Diff / Slide Review NO; Basophils Absolute Auto 100 /uL (0-100); Basophils Percent Auto 1.1 % (0-2); Eosinophils Absolute Auto 100 /uL (0-450); Eosinophils Percent Auto 1.6 % (2-4); Lymphocytes Absolute Auto 1300 /uL (1100-4500); Lymphocytes Percent Auto 23.2 % (25-40); Monocytes Absolute Auto 400 /uL (0-900); Monocytes Percent Auto 7.3 % (3-14); Neutrophils Absolute Auto 3900 /uL (1500-7000); Neutrophils Percent Auto 66.8 % (50-75)
[2020-12-30 18:28] LABS: Alanine Aminotransferase 14 IU/L (<35); Albumin Globulin Ratio 1.3 (1.0-2.8); Alkaline Phosphatase 65 U/L (38-126); Aspartate Aminotransferase 24 IU/L (14-36); Bilirubin Total 0.4 mg/dL (0.2-1.3); Globulin 3.1 g/dL (1.7-4.1); HEMOLYSIS < 15 (0-50); Magnesium 1.6 mg/dL (1.6-2.3); Total Protein 7.1 g/dL (6.3-8.2)
== END ==
PROVIDERS: PCP Family Medicine; Referring Provider Student in an Organized Health Care Education/Training Program; Visit Provider Student in an Organized Health Care Education/Training Program
DX: N18.32 Chronic kidney disease, stage 3b (principal); D70.9 Neutropenia, unspecified; T78.3XXA Angioneurotic edema, initial encounter; D63.1 Anemia in chronic kidney disease; E83.42 Hypomagnesemia; N05.9 Unspecified nephritic syndrome with unspecified morphologic changes; R80.9 Proteinuria, unspecified
CPT/HCPCS: 36415; 80048; 80053; 82570; 83036; 83735; 84156; 85025

== ENCOUNTER → 2021-01-18 13:32 | Outpatient (CLI) | payer MEDICARE, SELFPAY ==
[2019-01-03 13:15] VITALS: BMI 34.9
[2019-01-05 10:35] VITALS: PULSE 57; RESP 16; O2SAT 93
--- NOTE | 2021-01-18 15:23 | DIAB.MNT ---
Initial Diabetes Medical Nutrition Therapy Assessment Name: Nani Morton (DORA) Date: 01/18/21 Time: 1:35-1:20p Dx: Type II Diabetes c CKD 3 Provider: Magdalena JOHN presents today for nutrition therapy for T2DM c CKD3. States she previously attended DM ed at [facility], though was unable to finish the program due to covid and previous [facility] departure. Per [employer], she attended three classes and one 1:1 visit. States she worries about her recent elevated hgA1c. Also has questions about medications. Due to h/o lows, she is concerned about taking Metformin with 30u Glargine in the evening. Currently only taking 500 mg Metformin with breakfast, along with newly added XR Glipizide x 2.5mg. She is experiencing hyperglycemia in the evening. No recent hypo. Endorses small or no dinner in the evening. often eats twice per day. When she did have lows in the past, she would treat with one glucose tab (3-4 g quick carb) Per provider notes and labs, DORA has new CKD 3 diagnosis with referral to nephrology. Has not attended visit yet, though plans to. Diet Recall: 1130a: johnson, eggs, 1-2 slice toast with coffee and unsweetened cream 6p: 3 c popcorn with salt, seasoning, butter OR 1/2c [place] yogurt with banana and 1/2c or less granola Beverages: 12oz coffee, 48-56oz water, 6oz beer or cider (sweet) Anthropometrics: Ht: 5' Wt: 178# (11/18/20) Physical Activity: Not discussed today Self-Monitoring Blood Glucose: All FBG well managed and within goal, indicating Glargine rx is adequate. All HS readings (about 12hr after morning meds) elevated. She is not taking Metformin BID. Wondering if Metformin has worn off by bedtime resulting in elevations. Plans to take Metformin BID. Check blood sugars and return for f/u. Date Pre Post Pre Post Pre Post HS 01/05 102 268 01/06 129 265 01/07 102 258 01/08 800 252 01/09 102 214 01/10 85 262 01/11 102 265 Diabetes Medications: Metformin rx'd 500 mg BID (taking 1x in morning) Glipizide XR 2.5 mg in morning Glargine 30u HS Pertinent Labs: 12/30/20 HgA1c 8.4% H GFR 40 L Cr: 1.3 H Past Medical History: (Last Updated 11/18/20 @ 12:04 by Jovan Nichols MD) Abnormal Pap smear of cervix CIS Anemia in chronic kidney disease Angioedema Chronic low back pain with sciatica Crohn's disease Diabetes mellitus Duodenal ulcer GERD (gastroesophageal reflux disease) History of left oophorectomy Postmenopausal bleeding/abnormality Hyperlipidemia Nutrition Rx: Plate Method; 2300 mg Na or less Nutrition Diagnosis: - Predicted excessive sodium intake r/t limited Dm c CKD education aeb pt report - Food and nutrition related knowledge deficit r/t limited knowledge of treating hypoglycemia aeb pt report Intervention: This participant was very receptive. Provided appropriate educational handouts. Discussed the following topics: SMBG and changing btwn HS and pre dinner to see how BG look Kidney health: BP, BG, sodium, hydration Macronutrient pairing Medication precautions, actions, and hypoglycemia tx Discussed taking Metformin in the evening, given rx and hyperglycemia Discussed rationale for taking Metformin with food is more for GI upset Discussed potential DM med changes may happen after discussing with nephrology Brainstormed appropriate meal plan based on food preferences Created SMART goals for patient self-care and success. Goals: Take Metformin as rx'd Try checking a few pre dinner readings Measure salt added to popcorn Follow-up: [facility] follow-up in 2-3 weeks Cherelle Bonilla RDN, YOUSIF Certified Diabetes Care and Occupational Rehabilitation Aide P: [phone] Thank you for this referral
== END ==
PROVIDERS: PCP Family Medicine; Referring Provider Family Medicine; Visit Provider Family Medicine
DX: E11.22 Type 2 diabetes mellitus with diabetic chronic kidney disease (principal); N18.30 Chronic kidney disease, stage 3 unspecified; Z79.4 Long term (current) use of insulin; Z71.3 Dietary counseling and surveillance
CPT/HCPCS: 97802

== ENCOUNTER 2021-02-02 11:20 | Emergency (ER) | payer MEDICARE, SELFPAY ==
[2019-01-03 13:15] VITALS: BMI 34.9
[2019-01-05 10:35] VITALS: PULSE 57; RESP 16; O2SAT 93
[2021-02-02] VITALS (15 sets, daily range): BP systolic 128–180; BP diastolic 68–80; PULSE 67–88; RESP 12–21; TEMP 36.8; O2SAT 92–99; BMI 35.2
[2021-02-02 11:58] LABS: Add Manual Diff / Slide Review NO; Basophils Absolute Auto 100 /uL (0-100); Basophils Percent Auto 0.8 % (0-2); Eosinophils Absolute Auto 100 /uL (0-450); Eosinophils Percent Auto 1.2 % (2-4); Hematocrit 34.4 % (36-46); Lymphocytes Absolute Auto 1500 /uL (1100-4500); Lymphocytes Percent Auto 18.1 % (25-40); Mean Corpuscular HGB Conc 31.9 % (30-36); Mean Corpuscular Hemoglobin 25.4 PG (26-34); Mean Corpuscular Volume 79.8 fL (80-100); Monocytes Absolute Auto 600 /uL (0-900); Monocytes Percent Auto 7.4 % (3-14); Neutrophils Absolute Auto 6100 /uL (1500-7000); Neutrophils Percent Auto 72.5 % (50-75); Platelet Count 224 X10^3/uL (150-400); Red Blood Cell Count 4.31 X10^6/uL (4.0-5.2); Red Cell Distribution Width 15.5 % (11.6-14.8); White Blood Cell Count 8.4 X10^3/uL (4.5-11.0)
[2021-02-02 12:02] LABS: Alanine Aminotransferase 15 IU/L (<35); Albumin 4.5 g/dL (3.5-5.0); Albumin Globulin Ratio 1.3 (1.0-2.8); Alkaline Phosphatase 76 U/L (38-126); Aspartate Aminotransferase 22 IU/L (14-36); BUN Creatinine Ratio 13.3 (6-22); Bilirubin Total 0.7 mg/dL (0.2-1.3); Blood Urea Nitrogen 19 mg/dL (7-17); Calcium 9.7 mg/dL (8.4-10.2); Carbon Dioxide 26 mmol/L (22-32); Chloride 103 mmol/L (98-107); Estimated Glomerular Filt Rate 35.9 mL/min (>60); Globulin 3.6 g/dL (1.7-4.1); Glucose 142 mg/dL (80-110); HEMOLYSIS < 15 (0-50); Lipase 132 U/L (23-300); Potassium 4.1 mmol/L (3.4-5.1); Sodium 139 mmol/L (137-145); Total Protein 8.1 g/dL (6.3-8.2)
[2021-02-02 12:03] LABS: Lactate (Lactic Acid) 0.7 mmol/L (0.7-2.1)
--- NOTE | 2021-02-02 12:31 | ED_ITS ---
HPI - Abdominal Pain <Donna Long, QUILL PICKING MACHINE OPERATOR-BC - Last Filed: 02/02/21 17:02> General Chief Complaint: Abdominal Pain Stated Complaint: Lower right abd pain/fever x4 days Time Seen by Provider: 02/02/21 12:03 Source: patient Mode of arrival: Ambulatory Limitations: no limitations History of Present Illness HPI narrative: The patient is a 75-year-old female nonsmoker with history of diabetes and Crohn's disease who presents with a chief complaint of right-sided abdominal pain that has been ongoing since Sunday. She states she has had fevers up to 101?. She is fully vaccinated against COVID. She presents with her daughter. Complains of nausea, decreased appetite but no stool changes and no vomiting. She states that the pain is nonradiating. She states that she was treated for urinary tract infection several months ago. She states she has had episodes of this, and wondered if she has a urinary tract infection again. She denies any dysuria urgency or frequency. She denies any chest pain or shortness of breath, however states that she has some pain in her right side when she takes of breath. Abdominal surgical history includes cholecystectomy as well as left oophorectomy. For several days, she was alternating acetaminophen and ibuprofen, however she saw glove operator Dr. Horn yesterday who encouraged her to stop taking ibuprofen given her kidney function. She is fully vaccinated against COVID, states that she is scheduled for a booster next week. Related Data Home Medications Medication Instructions Recorded Confirmed Accu-Chek Advantage Meter 0 dev TOPICAL TID #0 01/03/19 02/02/21 diphenhydramine HCl 25 mg tablet 25 mg PO .COMPLEX PRN 08/17/20 02/02/21 (Benadryl Allergy) Previous Rx's Medication Instructions Recorded epinephrine 0.3 mg/0.3 mL 0.3 ml IM Q5-15M PRN #2 each 11/26/19 injection, auto-injector insulin syringe-needle U-100 0.5 #100 ea 07/05/20 mL 31 gauge x 16 ([facility] Syringes) metformin 500 mg tablet See Rx Instructions .ROUTE 08/26/20 .COMPLEX #180 tab blood sugar diagnostic (Accu-Chek See Rx Instructions .ROUTE 09/07/20 Guide test strips) .COMPLEX #300 strip lancets (Accu-Chek Softclix See Rx Instructions .ROUTE 09/08/20 Lancets) .COMPLEX #300 ea atorvastatin 20 mg tablet See Rx Instructions .ROUTE 12/08/20 .COMPLEX #90 tab glipizide 2.5 mg tablet, extended 2.5 mg PO DAILY #30 tab 01/13/21 release 24 hr insulin glargine 100 unit/mL 40 unit SUBCUT DAILY #30 ml 01/13/21 subcutaneous solution (Lantus U-100 Insulin) amoxicillin 875 mg-potassium 1 tab PO TID 10 Days #30 tab 02/02/21 clavulanate 125 mg tablet (Augmentin) hydrocodone 5 mg-acetaminophen 325 1 tab PO Q4-6H PRN #10 tab 02/02/21 mg tablet ondansetron 4 mg disintegrating 4 mg PO Q6H PRN #20 tab 02/02/21 tablet Allergies Allergy/AdvReac Type Severity Reaction Status Date / Time lisinopril Allergy Severe Swelling Verified 02/02/21 11:53 of Lip/Tongue/Throat Iodinated Contrast Media Allergy Verified 02/02/21 14:52 Review of Systems <LARISSA Emery - Last Filed: 02/02/21 17:02> Review of Systems Narrative: GENERAL: See HPI HEENT: Denies sinus pain, ear pain, sore throat, difficulty swallowing, dizziness. RESPIRATORY: Denies dyspnea, cough, wheezing, hemoptysis, sputum. CARDIOVASCULAR: Denies chest pain, palpitations, orthopnea, edema, GASTROINTESTINAL: See HPI : See HPI MUSCULOSKELETAL: denies weakness, joint pain, or bony pain SKIN: Denies rash, skin lesions, or other NEUROLOGIC: Denies weakness, headache, numbness, change in speech, confusion, seizures, incoordination. PSYCHIATRIC: No concerning psychosocial issues. 12 point review of systems is negative except for those stated above Patient History <LARISSA Emery - Last Filed: 02/02/21 17:02> Medical History Abnormal Pap smear of cervix Anemia in chronic kidney disease Angioedema Chronic low back pain with sciatica Crohn's disease Diabetes mellitus Duodenal ulcer GERD (gastroesophageal reflux disease) Hyperlipidemia Surgical History History of left oophorectomy Status post cone biopsy of cervix Status post laparoscopic cholecystectomy Family History Father Diabetes mellitus Social History household members: none Smoking Status: Former smoker alcohol intake: former eating out: rarely or never Type(s) of exercise: walking Smoking Status: Former smoker Substance Use Type: does not use Exam <LARISSA Emery - Last Filed: 02/02/21 17:02> Narrative Exam Narrative: GENERAL: This is a well-nourished, well-developed patient, in no acute distress HEAD: Atraumatic. Normocephalic. No temporal or scalp tenderness. EYES: Pupils equal round and reactive. Extraocular motions intact. No scleral icterus. No injection or drainage. ENT: Nose without bleeding, purulent drainage or septal hematoma. Wearing a mask Airway patent. NECK: Trachea midline. No JVD or lymphadenopathy. Supple, nontender, no meningeal signs. CARDIOVASCULAR: Regular rate and rhythm RESPIRATORY: Clear to auscultation. Breath sounds equal bilaterally. No wheezes, rales, or rhonchi. No cough. No increased respiratory effort. No accessory muscle use. GASTROINTESTINAL: Abdomen soft, tenderness to palpation noted right side of abdomen, active bowel sounds all 4 quadrants, no guarding noted on exam. EXTREMITIES: No clubbing, cyanosis, or edema. No joint tenderness, effusion, or edema noted. BACK: Nontender without deformity or crepitance. No flank tenderness. NEURO: AOx3. SKIN: No rash or erythema. Initial Vital Signs Initial Vital Signs: Vital Signs Temperature 98.2 F 02/02/21 11:25 Pulse Rate 79 02/02/21 11:25 Respiratory Rate 16 02/02/21 11:25 Blood Pressure 174/75 H 02/02/21 11:25 Pulse Oximetry 99 02/02/21 11:25 <Andrew Grant DO - Last Filed: 02/02/21 17:13> Initial Vital Signs Initial Vital Signs: Vital Signs Temperature 98.2 F 02/02/21 11:25 Pulse Rate 79 02/02/21 11:25 Respiratory Rate 16 02/02/21 11:25 Blood Pressure 174/75 H 02/02/21 11:25 Pulse Oximetry 99 02/02/21 11:25 Scores <Donna LARISSA Long - Last Filed: 02/02/21 17:02> GCS [place] coma scale eye opening: Spontaneous [place] coma scale verbal response: Orientated [place] coma scale motor response: Obey commands [place] coma scale total score: 15 <Andrew GrantDO - Last Filed: 02/02/21 17:13> GCS [place] coma scale total score: 15 Course <Donna LARISSA Long - Last Filed: 02/02/21 17:02> Orders Ordered: ED Orders 02/02/21 11:42 Complete Blood Count AUTO DIFF Stat Comprehensive Metabolic Panel Stat D Dimer Stat Lactate (Lactic Acid) Stat Lipase Stat 02/02/21 11:44 EKG-12 Lead Stat 02/02/21 11:54 Blood Culture Stat 02/02/21 12:12 COVID19 - ADMIT (CREDIT CARD SPECIALIST swab/PCR) Stat 02/02/21 13:21 CT abdomen pelvis w con Stat CT angio chest PE protocol Stat 02/02/21 13:32 Urine Culture Stat Urine Microscopic Stat Discontinued Medications Hydrocodone Bitart/Acetaminophen (Hydrocodone/Acet 5/325 Tablet) 1 tab PO NOW ONE Stop: 02/02/21 15:12 Last Admin: 02/02/21 15:27 Dose: 1 tab Documented by: JONATHAN Amoxicillin/Clavulanate Potassium (Amoxicillin/Clav 875/125 Mg) 1 tab PO NOW ONE Stop: 02/02/21 15:12 Last Admin: 02/02/21 15:27 Dose: 1 tab Documented by: JONATHAN Diphenhydramine HCl (Diphenhydramine 50 Mg/Ml Vial) 50 mg IV NOW ONE Stop: 02/02/21 13:37 Last Admin: 02/02/21 13:41 Dose: 50 mg Documented by: JONATHAN Sodium Chloride (Normal Saline 0.9%) 1,000 mls @ 1,000 mls/hr IV BOLUS ONE Stop: 02/02/21 13:23 Last Infusion: 02/02/21 15:23 Dose: 0 mls/hr Documented by: Admin: 02/02/21 12:38 Dose: 1,000 mls/hr Documented by: JONATHAN Methylprednisolone (Methylprednisolone 125 Mg/2 Ml Vial) 125 mg IV NOW ONE Stop: 02/02/21 13:37 Last Admin: 02/02/21 13:41 Dose: 125 mg Documented by: JONATHAN Morphine Sulfate (Morphine 4 Mg/Ml Inj) 4 mg IV NOW ONE Stop: 02/02/21 12:25 Last Admin: 02/02/21 12:38 Dose: 4 mg Documented by: JONATHAN Ondansetron HCl (Ondansetron 4 Mg/2 Ml Inj) 4 mg IV NOW ONE Stop: 02/02/21 12:25 Last Admin: 02/02/21 12:38 Dose: 4 mg Documented by: JONATHAN Ondansetron HCl (Ondansetron 4 Mg Odt) 4 mg SL NOW ONE Stop: 02/02/21 15:12 Last Admin: 02/02/21 15:27 Dose: 4 mg Documented by: JONATHAN Pantoprazole Sodium (Pantoprazole 40 Mg Vial) 40 mg IV NOW ONE Stop: 02/02/21 12:28 Last Admin: 02/02/21 12:38 Dose: 40 mg Documented by: JONATHAN Vital Signs Vital signs: Vital Signs - 8 hr 02/02/21 11:25 02/02/21 11:30 02/02/21 11:31 Temperature 98.2 F Pulse Rate 79 88 84 Respiratory Rate 16 Blood Pressure 174/75 H 174/75 H Pulse Oximetry 99 96 98 02/02/21 11:58 02/02/21 12:00 02/02/21 12:30 Temperature Pulse Rate 74 73 72 Respiratory Rate 17 17 18 Blood Pressure 180/77 H 142/75 H Pulse Oximetry 97 98 94 02/02/21 13:00 02/02/21 13:30 02/02/21 14:04 Temperature Pulse Rate 70 70 84 Respiratory Rate 12 21 20 Blood Pressure 155/68 H 158/74 H Pulse Oximetry 98 97 96 02/02/21 14:30 02/02/21 14:35 02/02/21 15:00 Temperature Pulse Rate 73 75 68 Respiratory Rate 17 21 18 Blood Pressure 143/76 H 150/70 H Pulse Oximetry 93 92 96 02/02/21 15:30 02/02/21 15:31 02/02/21 16:00 Temperature Pulse Rate 72 72 67 Respiratory Rate 21 21 20 Blood Pressure 146/79 H 128/80 Pulse Oximetry 92 95 94 <Andrew Grant DO - Last Filed: 02/02/21 17:13> Orders Ordered: ED Orders 02/02/21 11:42 Complete Blood Count AUTO DIFF Stat Comprehensive Metabolic Panel Stat D Dimer Stat Lactate (Lactic Acid) Stat Lipase Stat 02/02/21 11:44 EKG-12 Lead Stat 02/02/21 11:54 Blood Culture Stat 02/02/21 12:12 COVID19 - ADMIT (CREDIT CARD SPECIALIST swab/PCR) Stat 02/02/21 13:21 CT abdomen pelvis w con Stat CT angio chest PE protocol Stat 02/02/21 13:32 Urine Culture Stat Urine Microscopic Stat Discontinued Medications Hydrocodone Bitart/Acetaminophen (Hydrocodone/Acet 5/325 Tablet) 1 tab PO NOW ONE Stop: 02/02/21 15:12 Last Admin: 02/02/21 15:27 Dose: 1 tab Documented by: JONATHAN Amoxicillin/Clavulanate Potassium (Amoxicillin/Clav 875/125 Mg) 1 tab PO NOW ONE Stop: 02/02/21 15:12 Last Admin: 02/02/21 15:27 Dose: 1 tab Documented by: JONATHAN Diphenhydramine HCl (Diphenhydramine 50 Mg/Ml Vial) 50 mg IV NOW ONE Stop: 02/02/21 13:37 Last Admin: 02/02/21 13:41 Dose: 50 mg Documented by: JONATHAN Sodium Chloride (Normal Saline 0.9%) 1,000 mls @ 1,000 mls/hr IV BOLUS ONE Stop: 02/02/21 13:23 Last Infusion: 02/02/21 15:23 Dose: 0 mls/hr Documented by: Admin: 02/02/21 12:38 Dose: 1,000 mls/hr Documented by: JONATHAN Methylprednisolone (Methylprednisolone 125 Mg/2 Ml Vial) 125 mg IV NOW ONE Stop: 02/02/21 13:37 Last Admin: 02/02/21 13:41 Dose: 125 mg Documented by: JONATHAN Morphine Sulfate (Morphine 4 Mg/Ml Inj) 4 mg IV NOW ONE Stop: 02/02/21 12:25 Last Admin: 02/02/21 12:38 Dose: 4 mg Documented by: JONATHAN Ondansetron HCl (Ondansetron 4 Mg/2 Ml Inj) 4 mg IV NOW ONE Stop: 02/02/21 12:25 Last Admin: 02/02/21 12:38 Dose: 4 mg Documented by: JONATHAN Ondansetron HCl (Ondansetron 4 Mg Odt) 4 mg SL NOW ONE Stop: 02/02/21 15:12 Last Admin: 02/02/21 15:27 Dose: 4 mg Documented by: JONATHAN Pantoprazole Sodium (Pantoprazole 40 Mg Vial) 40 mg IV NOW ONE Stop: 02/02/21 12:28 Last Admin: 02/02/21 12:38 Dose: 40 mg Documented by: JONATHAN Vital Signs Vital signs: Vital Signs - 8 hr 02/02/21 11:25 02/02/21 11:30 02/02/21 11:31 Temperature 98.2 F Pulse Rate 79 88 84 Respiratory Rate 16 Blood Pressure 174/75 H 174/75 H Pulse Oximetry 99 96 98 02/02/21 11:58 02/02/21 12:00 02/02/21 12:30 Temperature Pulse Rate 74 73 72 Respiratory Rate 17 17 18 Blood Pressure 180/77 H 142/75 H Pulse Oximetry 97 98 94 02/02/21 13:00 02/02/21 13:30 02/02/21 14:04 Temperature Pulse Rate 70 70 84 Respiratory Rate 12 21 20 Blood Pressure 155/68 H 158/74 H Pulse Oximetry 98 97 96 02/02/21 14:30 02/02/21 14:35 02/02/21 15:00 Temperature Pulse Rate 73 75 68 Respiratory Rate 17 21 18 Blood Pressure 143/76 H 150/70 H Pulse Oximetry 93 92 96 02/02/21 15:30 02/02/21 15:31 02/02/21 16:00 Temperature Pulse Rate 72 72 67 Respiratory Rate 21 21 20 Blood Pressure 146/79 H 128/80 Pulse Oximetry 92 95 94 MDM - Abdominal Pain <CHAY Emery-BC - Last Filed: 02/02/21 17:02> Differential Diagnosis Differential diagnosis: Likely abdominal pain, acute appendicitis, calculus of kidney, constipation and diverticulitis Lab Data Result diagrams: 02/02/21 11:42 02/02/21 11:42 Labs: Lab Results 02/02/21 02/02/21 02/02/21 Range/Units 11:42 11:42 11:42 WBC 8.4 (4.5-11.0) X10^3/uL RBC 4.31 (4.0-5.2) X10^6/uL Hgb 11.0 L (12.0-16.0) g/dL Hct 34.4 L (36-46) % MCV 79.8 L (80-100) fL MCH 25.4 L (26-34) PG MCHC 31.9 (30-36) % RDW 15.5 H (11.6-14.8) % Plt Count 224 (150-400) X10^3/uL Neut % (Auto) 72.5 (50-75) % Lymph % (Auto) 18.1 L (25-40) % Stephenson % (Auto) 7.4 (3-14) % Eos % (Auto) 1.2 L (2-4) % Baso % (Auto) 0.8 (0-2) % Neut # (Auto) 6100 (2582-9115) /uL Lymph # (Auto) 1500 (1956-4099) /uL Stephenson # (Auto) 600 (0-900) /uL Eos # (Auto) 100 (0-450) /uL Baso # (Auto) 100 (0-100) /uL D-Dimer (<230) ng/mL Sodium 139 (137-145) mmol/L Potassium 4.1 (3.4-5.1) mmol/L Chloride 103 (98-107) mmol/L Carbon Dioxide 26 (22-32) mmol/L BUN 19 H (7-17) mg/dL Creatinine 1.43 H (0.52-1.04) mg/dL Estimated GFR 35.9 L (>60) mL/min BUN/Creatinine Ratio 13.3 (6-22) Glucose 142 H (80-110) mg/dL Lactate 0.7 (0.7-2.1) mmol/L Calcium 9.7 (8.4-10.2) mg/dL Total Bilirubin 0.7 (0.2-1.3) mg/dL AST 22 (14-36) IU/L ALT 15 (<35) IU/L Alkaline Phosphatase 76 (38-126) U/L Total Protein 8.1 (6.3-8.2) g/dL Albumin 4.5 (3.5-5.0) g/dL Globulin 3.6 (1.7-4.1) g/dL Albumin/Globulin Ratio 1.3 (1.0-2.8) Lipase 132 (23-300) U/L Urine RBC (0-5/HPF) Urine WBC (0-5/HPF) Ur Squamous Epith Cells (0-5/HPF) Urine Bacteria (None) Ur Culture Indicated? SARS-CoV-2 (PCR) (Negative) 02/02/21 02/02/21 02/02/21 Range/Units 11:42 12:12 13:32 WBC (4.5-11.0) X10^3/uL RBC (4.0-5.2) X10^6/uL Hgb (12.0-16.0) g/dL Hct (36-46) % MCV (80-100) fL MCH (26-34) PG MCHC (30-36) % RDW (11.6-14.8) % Plt Count (150-400) X10^3/uL Neut % (Auto) (50-75) % Lymph % (Auto) (25-40) % Stephenson % (Auto) (3-14) % Eos % (Auto) (2-4) % Baso % (Auto) (0-2) % Neut # (Auto) (6759-5307) /uL Lymph # (Auto) (2216-6751) /uL Stephenson # (Auto) (0-900) /uL Eos # (Auto) (0-450) /uL Baso # (Auto) (0-100) /uL D-Dimer 997 H (<230) ng/mL Sodium (137-145) mmol/L Potassium (3.4-5.1) mmol/L Chloride (98-107) mmol/L Carbon Dioxide (22-32) mmol/L BUN (7-17) mg/dL Creatinine (0.52-1.04) mg/dL Estimated GFR (>60) mL/min BUN/Creatinine Ratio (6-22) Glucose (80-110) mg/dL Lactate (0.7-2.1) mmol/L Calcium (8.4-10.2) mg/dL Total Bilirubin (0.2-1.3) mg/dL AST (14-36) IU/L ALT (<35) IU/L Alkaline Phosphatase (38-126) U/L Total Protein (6.3-8.2) g/dL Albumin (3.5-5.0) g/dL Globulin (1.7-4.1) g/dL Albumin/Globulin Ratio (1.0-2.8) Lipase (23-300) U/L Urine RBC None seen (0-5/HPF) Urine WBC 10-30/hpf H (0-5/HPF) Ur Squamous Epith Cells 0-1 /hpf (0-5/HPF) Urine Bacteria None seen (None) Ur Culture Indicated? Specimen cultured SARS-CoV-2 (PCR) Negative (Negative) Point of care testing: Urine Dip Bedside Urine Glucose Negative Bedside Urine Bilirubin - Negative Bedside Urine Ketone - Negative Urine Specific Coleman 1.015 Bedside Urine Occult Blood +/- Bedside Urine pH 6.0 Bedside Urine Protein - Negative Bedside Urine Urobilinogen - Negative Bedside Urine Nitrite - Negative Bedside Urine Leukocytes +/- [address] scan - chest: Radiologist's Impression: [address] [place] [id number] Scan Report Signed Patient: Nani Morton MR#: [id number] : 1945 Acct:[id number] Age/Sex: 75 / F Date of Service: 02/02/21 Loc: ED Accession Number: [id number] ?? Procedure: CT angio chest PE protocol Ordering Provider: Donna Long PROCEDURE:? CT ANGIO CHEST PE PROTOCOL ? INDICATIONS:? hurts to breathe, + ddimer ? TECHNIQUE:? After the administration of intravenous contrast, 2 mm thick sections acquired from the pulmonary apices to the posterior costophrenic angles.? 3-dimensional maximum intensity projection (MIP) coronal and sagittal reformats were then acquired through the thorax.? For radiation dose reduction, the following was used:? automated exposure control, adjustment of mA and/or kV according to patient size.? ? COMPARISON:? [facility], CT, CT ABDOMEN PELVIS W CON, 02/02/2021, 13:55.? [facility], CR, XR CHEST 1V, 01/04/2019, 10:06. ? FINDINGS:? Image quality:? Excellent.? ? Pulmonary arteries:? Pulmonary arteries are normal in size, and demonstrate no intraluminal filling defects to suggest central pulmonary embolism.? ? Lungs and pleura:? Lungs are clear.? No pleural effusions or pneumothorax.? Central and peripheral airways are patent.? ? Mediastinum:? Heart size is normal, without pericardial effusion.? There is mod erate coronary artery calcification.? No mediastinal or hilar adenopathy.? Thoracic aorta is normal in caliber and enhancement.? Esophagus is normal in caliber.? Small hiatal hernia. ? ? Bones and chest wall:? No suspicious bony lesions.? Ribs and thoracic spine appear intact throughout.? Thyroid gland is unremarkable.? No axillary or supraclavicular adenopathy.? ? Abdomen:? There is stranding in in the right upper abdomen adjacent to the transverse colon, suspicious for acute diverticulitis.? Visualized upper abdominal solid organs appear normal in the early arterial phase of enhancement.? Cholecystectomy. ? IMPRESSION:? ? 1. No evidence for pulmonary embolism. 2. No acute cardiopulmonary process. 3. Moderate coronary artery atherosclerosis. 4. Suspect acute diverticulitis of transverse colon.? Please see separate CT abdomen report for detail.? Dictated by: Dale Ghosh M.D. on 02/02/2021 at 14:29 ? ? Approved by: Dale Ghosh M.D. on 02/02/2021 at 14:36 ? CT scan - abdomen/pelvis: Radiologist's Impression: [address] [place] [address] CT Scan Report Signed Patient: Nani Morton MR#: [id number] : 1945 Acct:[id number] Age/Sex: 75 / F Date of Service: 02/02/21 Loc: ED Accession Number: [id number] ?? Procedure: CT abdomen pelvis w con Ordering Provider: Donna Long PROCEDURE:? CT ABDOMEN PELVIS W CON ? INDICATIONS:? right sided abd pain, fever, hx crohns ? TECHNIQUE:? After the administration of intravenous contrast, axial sections acquired from the lung bases to the pubic symphysis.? Coronal and sagittal reformats were performed.? For radiation dose reduction, the following was used:? automated exposure control, adjustment of mA and/or kV according to patient size.? ? COMPARISON:? [facility], CT, CT ABDOMEN PELVIS W CON, 04/07/2020, 15:00. ? FINDINGS:? Image quality:? Excellent.? ? Lung bases:? Lung bases are clear.? Small hiatal hernia. Heart:? No significant findings. ? ABDOMEN: Liver:? Liver is normal in size.? There is mild intrahepatic biliary dilation.? ? Gallbladder:? Surgically removed.? ? Biliary ducts:? Dilated.? Common bile duct measures up to 12 mm.? No common bile duct stones. Pancreas:? Normal morphology and enhancement.? No pancreatic duct dilation.? ? Spleen:? Unremarkable.? ? Adrenal Glands:? Unremarkable.? ? Kidneys and Ureters:? Kidneys are normal in size and enhancement.? There is a 1.4 cm cyst in the inferior pole of the left kidney.? ? ? Stomach and Bowel:? Stomach, small bowel loops, and colon are normal in caliber.? Scattered colonic diverticula.? There is focal thickening and inflammatory stranding in the proximal transverse colon adjacent to a diverticulum, consistent with acute diverticulitis. Peritoneum:? No abnormal intraperitoneal fluid.? No free air.? ? Ventral Wall: ? No hernias.? Abdominal Nodes:? No retroperitoneal or mesenteric adenopathy by size criteria.? Vessels:? Aorta and inferior vena cava are normal in size.? Mild arthritic calcifications. ? PELVIS: Pelvic Organs:? Uterus is unremarkable.? Right ovary is normal.? Left ovary is not well seen.? No pathological free-fluid in the cul-de-sac or adnexa.? ? Bladder:? Unremarkable.? ? Pelvic Nodes: No enlarged lymph nodes.? Miscellaneous: No hernias are seen. ? ? ? Bones:? Mild levoscoliosis.? Degenerative changes in spine are noted.? Suspect an intraosseous hemangioma in L4. ? ? IMPRESSION:? ? 1. Diverticulosis.? Focal thickening and inflammatory stranding in the proximal transverse colon adjacent to a diverticulum is consistent with acute diverticulitis.? No findings to suggest diverticular perforation.? No diverticular abscess.? After adequate treatment of acute illness, colonoscopy may be obtained as colon cancer could have a similar imaging appearance. 2. Cholecystectomy.? Intrahepatic and extrahepatic biliary dilation is likely secondary to cholecystectomy. 3.? ? ? Dictated by: Dale Ghosh M.D. on 02/02/2021 at 14:37 ? ? Approved by: Dale Ghosh M.D. on 02/02/2021 at 14:45?? ECG Data Interpretation: Sinus rhythm. Ventricular rate 73. P.r. interval 132. QRS 74. viewed by Dr Grant MDM Narrative Medical decision making narrative: The patient is a 75-year-old female who presents with a chief complaint of abdominal pain and fevers. She has had fevers up to 101 at home. Given her exam, CT was done. Given pain on respirat ion, D-dimer was taken, which came back at almost 1000. Thus CTA of the chest was taken, which came back negative for a PE. Imaging is concerning for diverticulitis with no abscess or perforation. Discussed possibility of Flagyl/Cipro verses Augmentin. Patient elects to use Augmentin for treatment as she already has tendon issues and wants to avoid fluoroquinolones. Patient feels much improved after the above-stated therapies. I discussed at length follow up with primary care provider in the next few days. Discussed at length coming back to ER for acute concerns such as inability keep down fluids or antibiotics despite nausea medicine. Patient was given prescription of ondansetron as well as Calimesa in addition to Augmentin t.i.d. as per up-to-date recommendations. Patient is able to tolerate p.o. medications and feels improved prior to discharge. No questions or concerns upon discharge states understanding return precautions as well as follow-up care. <Andrew Grant, DO - Last Filed: 02/02/21 17:13> Lab Data Labs: Lab Results 02/02/21 02/02/21 02/02/21 Range/Units 11:42 11:42 11:42 WBC 8.4 (4.5-11.0) X10^3/uL RBC 4.31 (4.0-5.2) X10^6/uL Hgb 11.0 L (12.0-16.0) g/dL Hct 34.4 L (36-46) % MCV 79.8 L (80-100) fL MCH 25.4 L (26-34) PG MCHC 31.9 (30-36) % RDW 15.5 H (11.6-14.8) % Plt Count 224 (150-400) X10^3/uL Neut % (Auto) 72.5 (50-75) % Lymph % (Auto) 18.1 L (25-40) % Stephenson % (Auto) 7.4 (3-14) % Eos % (Auto) 1.2 L (2-4) % Baso % (Auto) 0.8 (0-2) % Neut # (Auto) 6100 (6104-2586) /uL Lymph # (Auto) 1500 (4133-8647) /uL Stephenson # (Auto) 600 (0-900) /uL Eos # (Auto) 100 (0-450) /uL Baso # (Auto) 100 (0-100) /uL D-Dimer (<230) ng/mL Sodium 139 (137-145) mmol/L Potassium 4.1 (3.4-5.1) mmol/L Chloride 103 (98-107) mmol/L Carbon Dioxide 26 (22-32) mmol/L BUN 19 H (7-17) mg/dL Creatinine 1.43 H (0.52-1.04) mg/dL Estimated GFR 35.9 L (>60) mL/min BUN/Creatinine Ratio 13.3 (6-22) Glucose 142 H (80-110) mg/dL Lactate 0.7 (0.7-2.1) mmol/L Calcium 9.7 (8.4-10.2) mg/dL Total Bilirubin 0.7 (0.2-1.3) mg/dL AST 22 (14-36) IU/L ALT 15 (<35) IU/L Alkaline Phosphatase 76 (38-126) U/L Total Protein 8.1 (6.3-8.2) g/dL Albumin 4.5 (3.5-5.0) g/dL Globulin 3.6 (1.7-4.1) g/dL Albumin/Globulin Ratio 1.3 (1.0-2.8) Lipase 132 (23-300) U/L Urine RBC (0-5/HPF) Urine WBC (0-5/HPF) Ur Squamous Epith Cells (0-5/HPF) Urine Bacteria (None) Ur Culture Indicated? SARS-CoV-2 (PCR) (Negative) 02/02/21 02/02/21 02/02/21 Range/Units 11:42 12:12 13:32 WBC (4.5-11.0) X10^3/uL RBC (4.0-5.2) X10^6/uL Hgb (12.0-16.0) g/dL Hct (36-46) % MCV (80-100) fL MCH (26-34) PG MCHC (30-36) % RDW (11.6-14.8) % Plt Count (150-400) X10^3/uL Neut % (Auto) (50-75) % Lymph % (Auto) (25-40) % Stephenson % (Auto) (3-14) % Eos % (Auto) (2-4) % Baso % (Auto) (0-2) % Neut # (Auto) (9711-5501) /uL Lymph # (Auto) (3018-1697) /uL Stephenson # (Auto) (0-900) /uL Eos # (Auto) (0-450) /uL Baso # (Auto) (0-100) /uL D-Dimer 997 H (<230) ng/mL Sodium (137-145) mmol/L Potassium (3.4-5.1) mmol/L Chloride (98-107) mmol/L Carbon Dioxide (22-32) mmol/L BUN (7-17) mg/dL Creatinine (0.52-1.04) mg/dL Estimated GFR (>60) mL/min BUN/Creatinine Ratio (6-22) Glucose (80-110) mg/dL Lactate (0.7-2.1) mmol/L Calcium (8.4-10.2) mg/dL Total Bilirubin (0.2-1.3) mg/dL AST (14-36) IU/L ALT (<35) IU/L Alkaline Phosphatase (38-126) U/L Total Protein (6.3-8.2) g/dL Albumin (3.5-5.0) g/dL Globulin (1.7-4.1) g/dL Albumin/Globulin Ratio (1.0-2.8) Lipase (23-300) U/L Urine RBC None seen (0-5/HPF) Urine WBC 10-30/hpf H (0-5/HPF) Ur Squamous Epith Cells 0-1 /hpf (0-5/HPF) Urine Bacteria None seen (None) Ur Culture Indicated? Specimen cultured SARS-CoV-2 (PCR) Negative (Negative) Point of care testing: Urine Dip Bedside Urine Glucose Negative Bedside Urine Bilirubin - Negative Bedside Urine Ketone - Negative Urine Specific Coleman 1.015 Bedside Urine Occult Blood +/- Bedside Urine pH 6.0 Bedside Urine Protein - Negative Bedside Urine Urobilinogen - Negative Bedside Urine Nitrite - Negative Bedside Urine Leukocytes +/- 15 Esterase Discharge Plan Departure Patient Disposition: Home Clinical Impression: Diverticulitis Instructions: DI for Diverticulitis, DI for Abdominal Pain-Adult Activity Restrictions/Additional Instructions: Thank you for trusting us with your care today. As discussed, your imaging indicates diverticulitis. I sent 3 prescriptions to [facility]. This includes an antibiotic to take 3 times a day, pain and nausea medicine. Please follow-up with primary care provider in the next few days. You need to be seen for emergency department follow-up. Please come back to the emergency department for any acute concerns such as inability keep down antibiotics despite your nausea medicine. As discussed, please start with a clear liquid diet and slowly progress. You have been prescribed narcotic medications. While on these medications you cannot drive or operate heavy machinery. Additionally you cannot sign legal documents or perform any duties such as this. 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 Please be aware that ondansetron, the nausea medicine can be constipating. Prescriptions: New hydrocodone-acetaminophen 5-325 mg tablet 1 tab PO Q4-6H PRN (Reason: pain) Qty: 10 RF: 0 ondansetron 4 mg tablet,disintegrating 4 mg PO Q6H PRN (Reason: nausea and vomiting) Qty: 20 RF: 0 amoxicillin-pot clavulanate [Augmentin] 875-125 mg tablet 1 tab PO TID 10 Days Qty: 30 RF: 0 No Action (DME) insulin syringe-needle U-100 [Advocate Syringes] 0.5 mL 31 gauge x 5/16 syringe See Rx Instructions .ROUTE .MEDSUPPLY Qty: 100 RF: 3 metformin 500 mg tablet See Rx Instructions .ROUTE .COMPLEX Qty: 180 RF: 3 blood sugar diagnostic [Accu-Chek Guide test strips] Strip See Rx Instructions .ROUTE .COMPLEX Qty: 300 RF: 3 lancets [Accu-Chek Softclix Lancets] Misc See Rx Instructions .ROUTE .COMPLEX Qty: 300 RF: 3 atorvastatin 20 mg tablet See Rx Instructions .ROUTE .COMPLEX Qty: 90 RF: 3 Lantus U-100 Insulin 100 unit/mL solution 40 unit SUBCUT DAILY Qty: 30 RF: 3 glipizide 2.5 mg tablet extended release 24hr 2.5 mg PO DAILY Qty: 30 RF: 0 Accu-Chek Advantage Meter 0 dev topical TID Qty: 0 RF: 0 epinephrine 0.3 mg/0.3 mL auto-injector 0.3 ml IM Q5-15M PRN (Reason: anaphylaxis) Qty: 2 RF: 0 diphenhydramine HCl [Benadryl Allergy] 25 mg tablet 25 mg PO .COMPLEX PRN (Reason: Allergies) RF: 0 Referrals: Jovna Nichols MD [Primary Care Provider] - <Andrew Grant, - Last Filed: 02/02/21 17:13> Cosign ED Attending Cosignature Attestation: Dr Grant Co-Sign Statement: I was available for consultation during this patient's emergency department visit. This chart is signed by myself for administrative purposes only. I did not have direct contact with this patient during this visit. They were seen independently by the APC.
[2021-02-02] MEDS: SODIUM CHLORIDE 0.9% 1,000 ML 1000 ML IV (12:38)
[2021-02-02] MEDS: PANTOPRAZOLE 40 MG VIAL IV (12:38)
[2021-02-02] MEDS: MORPHINE 4 MG/ML INJ IV (12:38)
[2021-02-02] MEDS: ONDANSETRON 4 MG/2 ML INJ IV (12:38)
[2021-02-02 12:50] LABS: D Dimer 997 ng/mL (<230)
[2021-02-02 13:18] LABS: COVID19 - ADMIT (NP swab/PCR) Negative (Negative)
--- NOTE | 2021-02-02 13:21 | DI.CT.S_ITS ---
PROCEDURE: CT ABDOMEN PELVIS W CON INDICATIONS: right sided abd pain, fever, hx crohns TECHNIQUE: After the administration of intravenous contrast, axial sections acquired from the lung bases to the pubic symphysis. Coronal and sagittal reformats were performed. For radiation dose reduction, the following was used: automated exposure control, adjustment of mA and/or kV according to patient size. COMPARISON: [facility], CT, CT ABDOMEN PELVIS W CON, 04/07/2020, 15:00. FINDINGS: Image quality: Excellent. Lung bases: Lung bases are clear. Small hiatal hernia. Heart: No significant findings. ABDOMEN: Liver: Liver is normal in size. There is mild intrahepatic biliary dilation. Gallbladder: Surgically removed. Biliary ducts: Dilated. Common bile duct measures up to 12 mm. No common bile duct stones. Pancreas: Normal morphology and enhancement. No pancreatic duct dilation. Spleen: Unremarkable. Adrenal Glands: Unremarkable. Kidneys and Ureters: Kidneys are normal in size and enhancement. There is a 1.4 cm cyst in the inferior pole of the left kidney. Stomach and Bowel: Stomach, small bowel loops, and colon are normal in caliber. Scattered colonic diverticula. There is focal thickening and inflammatory stranding in the proximal transverse colon adjacent to a diverticulum, consistent with acute diverticulitis. Peritoneum: No abnormal intraperitoneal fluid. No free air. Ventral Wall: No hernias. Abdominal Nodes: No retroperitoneal or mesenteric adenopathy by size criteria. Vessels: Aorta and inferior vena cava are normal in size. Mild arthritic calcifications. PELVIS: Pelvic Organs: Uterus is unremarkable. Right ovary is normal. Left ovary is not well seen. No pathological free-fluid in the cul-de-sac or adnexa. Bladder: Unremarkable. Pelvic Nodes: No enlarged lymph nodes. Miscellaneous: No hernias are seen. Bones: Mild levoscoliosis. Degenerative changes in spine are noted. Suspect an intraosseous hemangioma in L4. IMPRESSION: 1. Diverticulosis. Focal thickening and inflammatory stranding in the proximal transverse colon adjacent to a diverticulum is consistent with acute diverticulitis. No findings to suggest diverticular perforation. No diverticular abscess. After adequate treatment of acute illness, colonoscopy may be obtained as colon cancer could have a similar imaging appearance. 2. Cholecystectomy. Intrahepatic and extrahepatic biliary dilation is likely secondary to cholecystectomy. 3. Dictated by: Dale Ghosh M.D. on 02/02/2021 at 14:37 Approved by: Dale Ghosh M.D. on 02/02/2021 at 14:45
--- NOTE | 2021-02-02 13:21 | DI.CT.S_ITS ---
PROCEDURE: CT ANGIO CHEST PE PROTOCOL INDICATIONS: hurts to breathe, + ddimer TECHNIQUE: After the administration of intravenous contrast, 2 mm thick sections acquired from the pulmonary apices to the posterior costophrenic angles. 3-dimensional maximum intensity projection (MIP) coronal and sagittal reformats were then acquired through the thorax. For radiation dose reduction, the following was used: automated exposure control, adjustment of mA and/or kV according to patient size. COMPARISON: Merged With [facility], CT, CT ABDOMEN PELVIS W CON, 02/02/2021, 13:55. Merged With [facility], CR, XR CHEST 1V, 01/04/2019, 10:06. FINDINGS: Image quality: Excellent. Pulmonary arteries: Pulmonary arteries are normal in size, and demonstrate no intraluminal filling defects to suggest central pulmonary embolism. Lungs and pleura: Lungs are clear. No pleural effusions or pneumothorax. Central and peripheral airways are patent. Mediastinum: Heart size is normal, without pericardial effusion. There is moderate coronary artery calcification. No mediastinal or hilar adenopathy. Thoracic aorta is normal in caliber and enhancement. Esophagus is normal in caliber. Small hiatal hernia. Bones and chest wall: No suspicious bony lesions. Ribs and thoracic spine appear intact throughout. Thyroid gland is unremarkable. No axillary or supraclavicular adenopathy. Abdomen: There is stranding in in the right upper abdomen adjacent to the transverse colon, suspicious for acute diverticulitis. Visualized upper abdominal solid organs appear normal in the early arterial phase of enhancement. Cholecystectomy. IMPRESSION: 1. No evidence for pulmonary embolism. 2. No acute cardiopulmonary process. 3. Moderate coronary artery atherosclerosis. 4. Suspect acute diverticulitis of transverse colon. Please see separate CT abdomen report for detail. Dictated by: Dale Ghosh M.D. on 02/02/2021 at 14:29 Approved by: Dale Ghosh M.D. on 02/02/2021 at 14:36
[2021-02-02] MEDS: methylPREDNISolone 125 MG/2 ML VIAL IV (13:41)
[2021-02-02] MEDS: diphenhydrAMINE 50 MG/ML VIAL IV (13:41)
[2021-02-02 14:13] LABS: Bacteria Urine None Seen; Culture Indicated Urine Specimen Cultured; RBC Urine None Seen (0-5/HPF); Squamous Epithelial Cell Urine 0-1 /HPF (0-5/HPF); WBC Urine 10-30/HPF (0-5/HPF)
[2021-02-02] MEDS: AMOXICILLIN/CLAV 875/125 MG 1 TAB PO (15:27)
[2021-02-02] MEDS: HYDROCODONE/ACET 5/325 TABLET 1 TAB PO (15:27)
[2021-02-02] MEDS: ONDANSETRON 4 MG ODT SL (15:27)
== END 2021-02-02 16:43 | disposition home or self-care (01) ==
PROVIDERS: Emergency Medicine; Emergency Provider Nurse Practitioner Family; PCP Family Medicine
DX: K57.92 Diverticulitis of intestine, part unspecified, without perforation or abscess without bleeding (principal); R50.9 Fever, unspecified; R11.0 Nausea; Z20.822 Contact with and (suspected) exposure to COVID-19; R03.0 Elevated blood-pressure reading, without diagnosis of hypertension
CPT/HCPCS: 36415; 71275; 74177; 80053; 81003; 81015; 83605; 83690; 85025; 85379; 87040; 87086; 87635; 93005; 93010; 96361; 96374; 96375; 99284; C9803; C9113; J1200; J2270; J2405; J2930

== ENCOUNTER → 2021-02-08 13:38 | Outpatient (CLI) | payer MEDICARE, SELFPAY ==
[2019-01-03 13:15] VITALS: BMI 34.9
[2019-01-05 10:35] VITALS: PULSE 57; RESP 16; O2SAT 93
--- NOTE | 2021-02-09 16:10 | DIAB.FU ---
Addendum entered by Cherelle Bonilla 02/09/21 16:32: DM Medications: she is taking Metformin BID not 1 x Original Note: Follow-up Diabetes Education Assessment Name: Nani Morton (DORA) Date: 02/08/21 Time: 2-3p Dx: Type II Diabetes DORA presents today for DM follow-up. Reports recent ED visit for diverticulitis. Tx with steroids and ABx. Has 4 more days of Abx but off steroids (which predictably had caused some hyperglycemia). Diarrhea persists at the moment. Prior to ED visit, BG logs indicate improved BG with taking Metformin as rx'd, as discussed last visit. States she did see her optician apprentice dispensing, whom asked her to d/c ibuprofen and return for follow-up. States she is unsure why she cannot take ibuprofen and troubled by this since it helps with LE pain. Also reports he wanted to start her on lisinopril, but she has a severe allergy. Wanting to put off optician apprentice dispensing f/u to focus on DM and diverticulitis. Has not been eating popcorn or nuts. Has not measured salt use as discussed last visit. Has some confusion as to when to take DM meds. This seems mostly r/t fear of lows. Physical Activity: Restarted yoga 2 x per week for 90 min. Plans to go back to walking dogs 30-45 min q day. Self-Monitoring Blood Glucose: Has decreased insulin to 20u (previously 30u). Taking Metformin 500 mg BID and Glipizide XR 2.5 mg with lunch. She is avoiding taking glipizide with metformin for fear of lows. Sometimes even skipping Metformin if BG are lower. FBG at goal. HS readings were much improved from last visit of 245-313 mg/dL. Highest elevations this week from steroid tx. Glargine dose seems appropriate given FBG readings. Evenings have improved, will re-evaluate next visit given recent steroid tx. Date Pre Post Pre Post Pre HS notes 02/01 94 196 02/02 137 219 02/03 71 128 02/04 83 245 steroids 02/06 84 223 steroids 02/07 128 167 02/08 84 Diabetes Medications: Metformin rx'd 500 mg BID (taking 1x in morning) Glipizide XR 2.5 mg in morning Glargine 20-22u HS Pertinent Labs: 12/30/20 HgA1c 8.4% H GFR 40 L Cr: 1.3 H Past Medical History: (Last Reviewed 02/02/21 @ 16:58 by Donna Long [facility]) Abnormal Pap smear of cervix CIS Anemia in chronic kidney disease Angioedema Chronic low back pain with sciatica Crohn's disease Diabetes mellitus Duodenal ulcer GERD (gastroesophageal reflux disease) History of left oophorectomy Postmenopausal bleeding/abnormality Hyperlipidemia Intervention: This participant was very receptive. Provided appropriate educational handouts. Discussed the following topics: Recent blood sugar results and trends Medication management and when to take medications and action time of meds Reviewed risk of lows with glipizide and insulin. Less concerning with Metformin. Review of general nutrition recommendations and current intake Physical activity plan and impact on blood sugars Prevention of complications: kidney health (hydration, lower sodium, rationale for avoiding meds that will worsen kidney health, reviewed kidney related lab values, rationale for HTN medication, impact of HTN and BG on kidneys) Brief discussion on recs for nutrition and diverticulitis Created SMART goals for patient self-care and success. Goals: Take Metformin as rx'd- met Try checking a few pre dinner readings- not met Measure salt added to popcorn- not met If FBG <80, reduce Lantus by 2-3 units Take Metformin BID 12 hours a part Take Glipizide at the same time each day if possible Follow-up: [facility] follow-up in 3-4 weeks Cherelle Bonilla RDN, YOUSIF Certified Diabetes Care and Chemical Process Equipment Operator P: [phone] Thank you for this referral
== END ==
PROVIDERS: PCP Family Medicine; Referring Provider Family Medicine; Visit Provider Family Medicine
DX: E11.9 Type 2 diabetes mellitus without complications (principal); R19.7 Diarrhea, unspecified; Z71.3 Dietary counseling and surveillance; Z79.84 Long term (current) use of oral hypoglycemic drugs; Z79.4 Long term (current) use of insulin
CPT/HCPCS: G0108

== ENCOUNTER → 2021-02-10 10:41 | Outpatient (CLI) | payer MEDICARE, SELFPAY ==
[2019-01-03 13:15] VITALS: BMI 34.9
[2019-01-05 10:35] VITALS: PULSE 57; RESP 16; O2SAT 93
--- NOTE | 2021-02-10 10:42 | DI.RAD.S_ITS ---
PROCEDURE: XR KNEE LT 3V INDICATIONS: left knee pain TECHNIQUE: 3 views of the knee were acquired. COMPARISON: None. FINDINGS: Bones: No fractures or dislocations. Ahls-uj-fmrysaeg tricompartmental osteoarthritis is seen more prominent in medial femoral tibial compartment. No suspicious bony lesions. Soft tissues: Moderate suprapatellar joint effusion is seen. No suspicious soft tissue calcifications. IMPRESSION: No acute left knee fracture or dislocation. Lzuu-li-ealergcu tricompartmental osteoarthritis more prominent in medial femoral tibial compartment. Moderate suprapatellar joint effusion. Dictated by: Eren Mayorga M.D. on 02/10/2021 at 12:06 Approved by: Eren Mayorga M.D. on 02/10/2021 at 12:16
== END ==
PROVIDERS: PCP Family Medicine; Referring Provider Family Medicine; Visit Provider Family Medicine
DX: M25.562 Pain in left knee (principal); M17.12 Unilateral primary osteoarthritis, left knee; M25.462 Effusion, left knee; G89.29 Other chronic pain
CPT/HCPCS: 73562

== ENCOUNTER → 2021-03-01 15:41 | Outpatient (CLI) | payer MEDICARE, SELFPAY ==
[2019-01-03 13:15] VITALS: BMI 34.9
[2019-01-05 10:35] VITALS: PULSE 57; RESP 16; O2SAT 93
[2021-03-01 16:21] LABS: Hematocrit 32.6 % (36-46); Hemoglobin 10.5 g/dL (12.0-16.0)
[2021-03-01 16:45] LABS: Appearance Urine UA CLEAR; Bilirubin Urine UA NEGATIVE (NEGATIVE); Color Urine UA YELLOW; Glucose Urine UA TRACE g/dL (Negative); Ketones Urine UA NEGATIVE (NEGATIVE); Leukocyte Esterase Urine UA 1+ (NEGATIVE); Nitrite Urine UA NEGATIVE (Negative); Occult Blood Urine UA TRACE-INTACT (Negative); Protein Urine UA TRACE (Negative); Urobilinogen Urine UA 0.2 E.U./dL (0.2)
[2021-03-01 17:13] LABS: RBC Urine 0-1/HPF (0-5/HPF); Squamous Epithelial Cell Urine 0-1 /HPF (0-5/HPF); WBC Urine 10-30/HPF (0-5/HPF)
[2021-03-01 17:14] LABS: Bacteria Urine Few (2-10); Culture Indicated Urine Specimen Cultured; Hyaline Casts Urine 5-10/LPF; Mucus Urine 1+ (Negative)
[2021-03-01 17:35] LABS: BUN Creatinine Ratio 18.5 (6-22); Blood Urea Nitrogen 24 mg/dL (7-17); Calcium 9.5 mg/dL (8.4-10.2); Carbon Dioxide 31 mmol/L (22-32); Chloride 102 mmol/L (98-107); Creatinine Urine Random 102.1 mg/dL; Glucose 287 mg/dL (80-110); HEMOLYSIS < 15 (0-50); Phosphorous 3.3 mg/dL (2.8-4.1); Potassium 4.4 mmol/L (3.4-5.1); Protein (Total) Urine Random 12 mg/dL (0-12); Protein Creatinine Ratio Urine 0.11 GRAM/24H; Sodium 141 mmol/L (137-145)
[2021-03-02 09:42] LABS: Parathyroid Hormone Int 78 pg/mL (15-65)
== END ==
PROVIDERS: PCP Family Medicine; Referring Provider Student in an Organized Health Care Education/Training Program; Visit Provider Student in an Organized Health Care Education/Training Program
DX: N05.9 Unspecified nephritic syndrome with unspecified morphologic changes (principal); N30.00 Acute cystitis without hematuria; R80.9 Proteinuria, unspecified; D64.9 Anemia, unspecified; E83.30 Disorder of phosphorus metabolism, unspecified; N25.81 Secondary hyperparathyroidism of renal origin
CPT/HCPCS: 36415; 80048; 81001; 82570; 83970; 84100; 84156; 85014; 85018; 87086

== ENCOUNTER → 2021-03-10 15:30 | Outpatient (CLI) | payer MEDICARE, SELFPAY ==
[2019-01-03 13:15] VITALS: BMI 34.9
[2019-01-05 10:35] VITALS: PULSE 57; RESP 16; O2SAT 93
[2021-03-10 17:39] LABS: Appearance Urine UA SL CLOUDY; Bilirubin Urine UA NEGATIVE (NEGATIVE); Color Urine UA YELLOW; Glucose Urine UA TRACE g/dL (Negative); Ketones Urine UA NEGATIVE (NEGATIVE); Leukocyte Esterase Urine UA 2+ (NEGATIVE); Nitrite Urine UA NEGATIVE (Negative); Occult Blood Urine UA TRACE-LYSED (Negative); Protein Urine UA TRACE (Negative); Urobilinogen Urine UA 0.2 E.U./dL (0.2)
[2021-03-10 18:03] LABS: Bacteria Urine Occasional (0-1); Culture Indicated Urine Specimen Cultured; RBC Urine 0-1/HPF (0-5/HPF); Squamous Epithelial Cell Urine 0-1 /HPF (0-5/HPF); WBC Urine 30-100/HPF (0-5/HPF)
== END ==
PROVIDERS: Family Provider Family Medicine; PCP Family Medicine; Referring Provider Student in an Organized Health Care Education/Training Program; Visit Provider Student in an Organized Health Care Education/Training Program
DX: N30.00 Acute cystitis without hematuria (principal)
CPT/HCPCS: 81001; 87086

== ENCOUNTER → 2021-03-22 13:52 | Outpatient (CLI) | payer MEDICARE, SELFPAY ==
[2019-01-03 13:15] VITALS: BMI 34.9
[2019-01-05 10:35] VITALS: PULSE 57; RESP 16; O2SAT 93
--- NOTE | 2021-03-22 15:15 | DIAB.FU ---
Follow-up Diabetes Education Assessment Name: Nani Morton (DORA) Date: 03/22/21 Time: 205-240p Dx: Type II Diabetes c CKD III DORA presents today with several questions regarding DM, nutrition and kidney health. C/o frequent urination at night, increased from 1 x per night to 2-3x. States it is very disruptive to her sleep. BG have improved since starting DM program, so unclear if this is really DM related-- though cont to have hyperglycemia in evenings. States she drinks 64-80oz water per day. She is wondering if she should cut back, but with CKD PMH adequate hydration is recommended. Does not see nephrology for f/u until June. Also c/o dry mouth. Reviewed medications, which none seem to have this SE. May be r/t to DM, but again BG have not worsened. Still has some confusion as to when to take her DM medications. Continues to avoid taking glipizide ER with Metformin for fear of lows. Skips glipizide all together at night due to skipped meal, but then endorses sometimes taking glipizide even when she does not eat. Eats 2 meals per day most days (breakfast and dinner). Breakfast is her most consistent meal. Asking what kind of HS snacks she can have. Has concerns of anemia which could be exacerbated by GI hx and CKD. States she is taking ibuprofen despite rec from nephrology. States she has informed nephrology provider about this. States she is in PT and cannot control her pain without it. Physical Activity: Endorses more activity. Engaging in yoga. Did not discuss dog walking today. Self-Monitoring Blood Glucose: Did not bring her BG log today, but endorses FBG of 74-90 mg/dL. This RD/CDCES worries that she is very close to hypoglycemia in the morning. Titrating Lantus down is recommended. She is unaware of BG goals. Evening readings reportedly 180-210 mg/dL. Still elevated, but they are much better than previous visits. No readings in 300s per her report. Notices higher readings with skipped glipizide. Diabetes Medications: Metformin rx'd 500 mg BID Glipizide XR 2.5 mg in morning (was taking in evening and skipping at times) Glargine 25u HS Pertinent Labs: 12/30/20 HgA1c 8.4% H GFR 40 L Cr: 1.3 H K: 4.4 Past Medical History: (Last Reviewed 02/26/21 @ 13:53 by Rafal Jaquez MD) Abnormal Pap smear of cervix CIS Anemia in chronic kidney disease Angioedema Chronic low back pain with sciatica Crohn's disease Diabetes mellitus Duodenal ulcer GERD (gastroesophageal reflux disease) History of left oophorectomy Postmenopausal bleeding/abnormality Hyperlipidemia Intervention: This participant was very receptive. Provided appropriate educational handouts. Discussed the following topics: Recent blood sugar trends Medication reccs: when to take, hypo risk review Review of iron foods combined with vitamin c Snack list S/s hyperglycemia, dry mouth and diabetes Encouraged calling nephrology about urination frequency ADA BG goals: FB-130 (or even 90-130) and 1-2 hr pc <180 mg/dL Hydration and CKD Created SMART goals for patient self-care and success. Goals: If FBG <80, reduce Lantus by 2-3 units - in progress Take Metformin BID 12 hours a part - in progress Take Glipizide at the same time each day if possible- in progress Try drinking water earlier in the day, but do not reduce water <64oz unless told otherwise by nephrology- new Call nephrology about freq urination- new Take glipizide in the morning with breakfast- new Follow-up: [facility] follow-up in April. MJ would like to postpone f/u until that time. Encouraged her to call with any questions or concerns. Next visit topics: CKD nutrition, BG trends, review med recs, physical activity Cherelle Bonilla RDN, [facility] Certified Diabetes Care and Bacteriology Technician P: [phone] Thank you for this referral
== END ==
PROVIDERS: Family Provider Family Medicine; PCP Family Medicine; Referring Provider Family Medicine; Visit Provider Family Medicine
DX: E11.22 Type 2 diabetes mellitus with diabetic chronic kidney disease (principal); N18.30 Chronic kidney disease, stage 3 unspecified; Z79.84 Long term (current) use of oral hypoglycemic drugs; Z79.4 Long term (current) use of insulin
CPT/HCPCS: G0108

== ENCOUNTER 2021-04-07 14:30 | Outpatient (RCR) | payer MEDICARE, SELFPAY ==
[2019-01-03 13:15] VITALS: BMI 34.9
[2019-01-05 10:35] VITALS: PULSE 57; RESP 16; O2SAT 93
--- NOTE | 2021-03-10 16:15 | PT.OIE ---
Current Diagnoses Unilateral primary osteoarthritis, left knee (03/10/21) Past Medical History (Last Reviewed 02/26/21 @ 13:53 by Rafal Jaquez MD) Abnormal Pap smear of cervix Anemia in chronic kidney disease Angioedema Chronic low back pain with sciatica Crohn's disease Diabetes mellitus Duodenal ulcer GERD (gastroesophageal reflux disease) History of left oophorectomy Hyperlipidemia Past Surgical History (Last Reviewed 02/26/21 @ 13:53 by Rafal Jaquez MD) History of left oophorectomy Status post cone biopsy of cervix Status post laparoscopic cholecystectomy Visit Care Team Role Provider Type Jovan Nichols MD Attending Provider Physician Family Provider Primary Care Provider Referring Provider Specialty: [facility] Practice Address: [address] [place] [address] Email: [email or web address] Therapy Initial Evaluation PT-OP-A Visit Information Start: 03/08/21 13:57 Freq: Status: Active Protocol: Document 03/10/21 14:32 MB (Rec: 03/10/21 15:14 MB [id number]) Out-Patient Physical Therapy Visit Information Visit Information Visit Type Initial Evaluation Visit Note [facility] Visit Start Time 14:32 Visit Stop Time 15:15 Total Visit Minutes 43 Visit Number 1 Evaluation Information Evaluation Date 03/10/21 PT-OP-B Current Condition Start: 03/08/21 13:57 Freq: Status: Active Protocol: Document 03/10/21 14:32 MB (Rec: 03/10/21 15:14 MB [id number]) Current Condition History of Current Condition Onset Date At least two years Current Complaints Left knee pain that goes down the leg and occ aching up the left leg History of Current Condition Pt reports a history of left knee pain that is getting worse. She had a meniscus repair 10-12 years ago and it still hurt afterwards. She takes a Tylenol and Ibuprofen at night time or she cannot fall asleep. She is waking up at night time d/t pain at least three times. PMH includes arthritis, back pain, Crohn's disease, DMII, hearing problems, kidney disease. She has trouble with taking the two trashcans out. She denies true falls and has an employment legal assistant dog for balance. She has stumbled a couple of times. Going up and down the steps is difficult and she holds on real tight. She has three steps to enter her home. Pt reports pain up to 7/10 in her left knee, lateral leg and up to SI joint. Prior Treatments and Tests X-ray left knee 02/10/21: mild to moderate tricompartmental OA more prominent in medial femoral tibial comparment, mod suprapatellar joint effusion Treatment Goals Patient/Caregiver Goals To decrease left knee and leg pain PT-OP-C Subjective Start: 03/08/21 13:57 Freq: Status: Active Protocol: Document 03/10/21 14:32 MB (Rec: 03/10/21 15:14 MB [id number]) OP-PT Subjective Patient Comments Patient Comments See history of current condition Patient Questionnaires Lower Extremity Functional Scale LEFS Score 38 LEFS Impairment 40 to 59% Impaired (Score 32- 47) PT-OP-G Mobility & Gait Start: 03/08/21 13:57 Freq: Status: Active Protocol: Document 03/10/21 14:32 MB (Rec: 03/10/21 16:14 MB [id number]) OP Gait Assessment Gait Gait Assistance Required: Independent Distance (Feet) 25 Assistive Devices Assistive Device None Comments Gait Comments Decreased step-length and foot clearance, decreased heel- strike, slow gait speed and decreased toe push off PT-OP-J Posture/Palpation/Skin Start: 03/08/21 13:57 Freq: Status: Active Protocol: Document 03/10/21 14:32 MB (Rec: 03/10/21 16:14 MB [id number]) Posture Evaluation Comments Posture Comments Standing in socks: Dowager's hump, anterior tilt pelvis, increased lumbar lordosis, left shoulder is higher than the right, increased WB lateral feet, increased Coral angle left greater than the right, right scapular lower than the left, right iliac crest higher than the left PT-OP-K Range of Motion Start: 03/08/21 13:57 Freq: Status: Active Protocol: Document 03/10/21 14:32 MB (Rec: 03/10/21 16:14 MB [id number]) Knee Goniometric Range of Motion Knee ROM Limitations Comments AROM in supine: right knee 2- 115 deg; left knee 12-110 deg PT-OP-M Strength Start: 03/08/21 13:57 Freq: Status: Active Protocol: Document 03/10/21 14:32 MB (Rec: 03/10/21 16:14 MB [id number]) Hip Strength Hip Manual Muscle Testing Left Flexion (L2) 4 Good Abduction 4 Good Adduction 4 Good Right Flexion (L2) 5 Normal Abduction 5 Normal Adduction 5 Normal Knee Strength Knee Manual Muscle Testing Left Flexion (S2) 4 Good Extension (L3) 4 Good Right Flexion (S2) 5 Normal Extension (L3) 5 Normal Ankle/Foot Strength Ankle and Foot Manual Muscle Testing Left Dorsiflexion (L4) 5 Normal Right Dorsiflexion (L4) 5 Normal Toe Strength Toe Manual Muscle Testing Left Great Toe Extension 4 Good Right Great Toe Extension 4 Good PT-OP-Q Treatments Start: 03/08/21 13:57 Freq: Status: Active Protocol: Document 03/10/21 14:32 MB (Rec: 03/10/21 16:14 MB [id number]) Manual Therapy Treatment Other Other Manual Treatments [place] KT to support left knee with c strip under knee and B I strips medial and lateral knee Self-Care/Home Management Treatment Education Other Education Ed pt in benefits of right side sleeping with pillow in front of her legs with left leg lying on pillow to decrease weight bearing through the left knee at night . Also ed on benefits of frozen vegetables for icing and benefits of KT and when to remove PT-OP-T Assessment and Plan Start: 03/08/21 13:57 Freq: Status: Active Protocol: Document 03/10/21 14:32 MB (Rec: 03/10/21 16:14 MB [id number]) Physical Therapy Assessment Rehab Potential Rehabilitation Potential Fair Evaluation Complexity Number of Personal Factors/Comorbidities 1-2 Number of Body Systems Impaired 1-2 Clinical Presentation at Evaluation Evolving Impairments Impairments Activity Tolerance,Balance, Functional Mobility,Gait,Pain, Posture,ROM,Soft Tissue Mobility,Strength Other Impairments Personal factors include pt lives alone and has to do all chores herself. Also, she lives on [place] and can only make it into PT 1x/wk initially. Body systems affected include musculoskeletal and neuromuscular. Here clinical presentation is evolving. Other Concerns Fall Risk Yes Goals 5 Supervisor Home Energy Consultant Goal (LTG) Pt will perform progressive HEP with I including pelvic realignment, flexibility, strengthening and balance to improve pain and function by . LTG Duration 8 weeks 4 Skilled Nursing Goal (LTG) Pt will gait train at least 1300 feet in 6 minutes without AD to improve community ambulation by 05/10/21. LTG Duration 8 weeks 3 Supervisor Home Energy Consultant Goal (LTG) Pt will perform WNLs on a standardized balance test to decrease fall risk by 05/10/21. LTG Duration 8 weeks 2 Skilled Nursing Goal (LTG) Pt will report a 33% improvement in sleeping ( awakening no more than 1x/ night) d/t pain to improve restorative rest by 05/10/21. LTG Duration 8 weeks 1 Supervisor Home Energy Consultant Goal (LTG) Pt will present with an improved LEF score to reflect no more than 30% impairment to reflect improved function by 05/10/21. LTG Duration 8 weeks Assessment Summary Assessment Pt is a 75 y/o female presenting with left knee pain in setting of OA. She lives alone with her two assistance dogs. She has achiness and pain most of the time and has trouble taking out the garbage . Stairs and walking are difficult and she also has trouble sleeping d/t pain and awakens 3x/night d/t pain. Oral ibuprofen has been helpful and PT encourages her to speak with doctor and/or pharmacist about Voltaren gel to use instead of oral ibuprofen. She presents with gait quality changes, decreased ROM and strength. She will benefit from PT to improve flexibility, strength and balance. She will benefit from aquatic therapy and PT does recommend orthopedic consult given degenerative changes and trouble sleeping. Physical Therapy Plan Frequency and Duration Frequency of Treatment 1x/wk, then 2x/wk Duration of Treatment 8 weeks Plan of Care Start Date 03/10/21 Plan of Care End Date 05/10/21 Therapeutic Interventions Therapeutic Interventions Aquatic Therapy,Balance Training,Canalithic Repositioning,Gait Training, Home Exercise Program,Joint Mobilizations,Manual Therapy, Neuromuscular Re-education, Patient/Caregiver Education, Self-Care/Home Management,Soft Tissue Mobilization,Taping, Therapeutic Activities, Therapeutic Exercises Modalities Cold Pack/Ice Massage,Hot Packs Next Visit Focus/Plan Next Note Type Treatment Note Next Visit Plan Start stepper or bike, pelvic realignment exercises, use of rolling pin, hook lying clam
--- NOTE | 2021-03-10 16:15 | PT.OPPOC ---
Physical, Occupational & Speech Therapy At [facility] Current Diagnoses Unilateral primary osteoarthritis, left knee (03/10/21) Visit Care Team Role Provider Type Jovan Nichols MD Attending Provider Physician Family Provider Primary Care Provider Referring Provider Specialty: Family Practice Address: [address] [place] [address], [facility] Email: [email or web address] Plan Of Care PT-OP-T Assessment and Plan Start: 03/08/21 13:57 Freq: Status: Active Protocol: Document 03/10/21 14:32 MB (Rec: 03/10/21 16:14 MB [id number]) Physical Therapy Assessment Rehab Potential Rehabilitation Potential Fair Evaluation Complexity Number of Personal Factors/Comorbidities 1-2 Number of Body Systems Impaired 1-2 Clinical Presentation at Evaluation Evolving Impairments Impairments Activity Tolerance,Balance, Functional Mobility,Gait,Pain, Posture,ROM,Soft Tissue Mobility,Strength Other Impairments Personal factors include pt lives alone and has to do all chores herself. Also, she lives on [place] and can only make it into PT 1x/wk initially. Body systems affected include musculoskeletal and neuromuscular. Here clinical presentation is evolving. Other Concerns Fall Risk Yes Goals 5 Charge Master Specialist Goal (LTG) Pt will perform progressive HEP with I including pelvic realignment, flexibility, strengthening and balance to improve pain and function by . LTG Duration 8 weeks 4 Charge Master Specialist Goal (LTG) Pt will gait train at least 1300 feet in 6 minutes without AD to improve community ambulation by 05/10/21. LTG Duration 8 weeks 3 Charge Master Specialist Goal (LTG) Pt will perform WNLs on a standardized balance test to decrease fall risk by 05/10/21. LTG Duration 8 weeks 2 Charge Master Specialist Goal (LTG) Pt will report a 33% improvement in sleeping ( awakening no more than 1x/ night) d/t pain to improve restorative rest by 05/10/21. LTG Duration 8 weeks 1 Charge Master Specialist Goal (LTG) Pt will present with an improved LEF score to reflect no more than 30% impairment to reflect improved function by 05/10/21. LTG Duration 8 weeks Assessment Summary Assessment Pt is a 75 y/o female presenting with left knee pain in setting of OA. She lives alone with her two assistance dogs. She has achiness and pain most of the time and has trouble taking out the garbage . Stairs and walking are difficult and she also has trouble sleeping d/t pain and awakens 3x/night d/t pain. Oral ibuprofen has been helpful and PT encourages her to speak with doctor and/or pharmacist about Voltaren gel to use instead of oral ibuprofen. She presents with gait quality changes, decreased ROM and strength. She will benefit from PT to improve flexibility, strength and balance. She will benefit from aquatic therapy and PT does recommend orthopedic consult given degenerative changes and trouble sleeping. Physical Therapy Plan Frequency and Duration Frequency of Treatment 1x/wk, then 2x/wk Duration of Treatment 8 weeks Plan of Care Start Date 03/10/21 Plan of Care End Date 05/10/21 Therapeutic Interventions Therapeutic Interventions Aquatic Therapy,Balance Training,Canalithic Repositioning,Gait Training, Home Exercise Program,Joint Mobilizations,Manual Therapy, Neuromuscular Re-education, Patient/Caregiver Education, Self-Care/Home Management,Soft Tissue Mobilization,Taping, Therapeutic Activities, Therapeutic Exercises Modalities Cold Pack/Ice Massage,Hot Packs Next Visit Focus/Plan Next Note Type Treatment Note Next Visit Plan Start stepper or bike, pelvic realignment exercises, use of rolling pin, hook lying clam Plan of Care Dates Plan of Care Start Date 03/10/21 Plan of Care End Date 05/10/21 Electronically Signed by: Belkis Sanz, PT 03/10/21 [id number] Please Sign and Return: I have reviewed this Plan of Care and certify that the skilled therapy services above are required to meet the patient?s needs. Physician Signature Date Printed Name and Credentials Clinical Instructor Signature Printed Name and Credentials
--- NOTE | 2021-03-25 14:33 | PT.OTN ---
Current Diagnoses Unilateral primary osteoarthritis, left knee (03/25/21) Physical Therapy Treatment Note PT-OP-A Visit Information Start: 03/08/21 13:57 Freq: Status: Active Protocol: Document 03/25/21 13:47 MB (Rec: 03/25/21 14:33 MB [id number]) Out-Patient Physical Therapy Visit Information Visit Information Visit Type Treatment Note Visit Note [facility] Visit Start Time 13:47 Visit Stop Time 14:30 Total Visit Minutes 43 Visit Number 2 Number of LOG DECKMAN Visits 0 Evaluation Information Evaluation Date 03/10/21 PT-OP-B Current Condition Start: 03/08/21 13:57 Freq: Status: Active Protocol: Document 03/10/21 14:32 MB (Rec: 03/10/21 15:14 MB [id number]) Current Condition History of Current Condition Onset Date At least two years Current Complaints Left knee pain that goes down the leg and occ aching up the left leg History of Current Condition Pt reports a history of left knee pain that is getting worse. She had a meniscus repair 10-12 years ago and it still hurt afterwards. She takes a Tylenol and Ibuprofen at night time or she cannot fall asleep. She is waking up at night time d/t pain at least three times. PMH includes arthritis, back pain, Crohn's disease, DMII, hearing problems, kidney disease. She has trouble with taking the two trashcans out. She denies true falls and has an care assistant dog for balance. She has stumbled a couple of times. Going up and down the steps is difficult and she holds on real tight. She has three steps to enter her home. Pt reports pain up to 7/10 in her left knee, lateral leg and up to SI joint. Prior Treatments and Tests X-ray left knee 02/10/21: mild to moderate tricompartmental OA more prominent in medial femoral tibial comparment, mod suprapatellar joint effusion Treatment Goals Patient/Caregiver Goals To decrease left knee and leg pain PT-OP-C Subjective Start: 03/08/21 13:57 Freq: Status: Active Protocol: Document 03/25/21 13:47 MB (Rec: 03/25/21 14:33 MB [id number]) OP-PT Subjective Patient Comments Patient Comments My knee still hurts so let's do something about it. Pt asks what the pool therapy is about. Pt tried to ask about Voltaren but did not get to talk with the pharmacist. PT-OP-G Mobility & Gait Start: 03/08/21 13:57 Freq: Status: Active Protocol: Document 03/10/21 14:32 MB (Rec: 03/10/21 16:14 MB [id number]) OP Gait Assessment Gait Gait Assistance Required: Independent Distance (Feet) 25 Assistive Devices Assistive Device None Comments Gait Comments Decreased step-length and foot clearance, decreased heel- strike, slow gait speed and decreased toe push off PT-OP-J Posture/Palpation/Skin Start: 03/08/21 13:57 Freq: Status: Active Protocol: Document 03/10/21 14:32 MB (Rec: 03/10/21 16:14 MB [id number]) Posture Evaluation Comments Posture Comments Standing in socks: Dowager's hump, anterior tilt pelvis, increased lumbar lordosis, left shoulder is higher than the right, increased WB lateral feet, increased Coral angle left greater than the right, right scapular lower than the left, right iliac crest higher than the left PT-OP-K Range of Motion Start: 03/08/21 13:57 Freq: Status: Active Protocol: Document 03/10/21 14:32 MB (Rec: 03/10/21 16:14 MB [id number]) Knee Goniometric Range of Motion Knee ROM Limitations Comments AROM in supine: right knee 2- 115 deg; left knee 12-110 deg PT-OP-M Strength Start: 03/08/21 13:57 Freq: Status: Active Protocol: Document 03/10/21 14:32 MB (Rec: 03/10/21 16:14 MB [id number]) Hip Strength Hip Manual Muscle Testing Left Flexion (L2) 4 Good Abduction 4 Good Adduction 4 Good Right Flexion (L2) 5 Normal Abduction 5 Normal Adduction 5 Normal Knee Strength Knee Manual Muscle Testing Left Flexion (S2) 4 Good Extension (L3) 4 Good Right Flexion (S2) 5 Normal Extension (L3) 5 Normal Ankle/Foot Strength Ankle and Foot Manual Muscle Testing Left Dorsiflexion (L4) 5 Normal Right Dorsiflexion (L4) 5 Normal Toe Strength Toe Manual Muscle Testing Left Great Toe Extension 4 Good Right Great Toe Extension 4 Good PT-OP-Q Treatments Start: 03/08/21 13:57 Freq: Status: Active Protocol: Document 03/25/21 13:47 MB (Rec: 03/25/21 14:33 MB [id number]) Cardio Equipment Recumbent Elliptical (Biodex) Duration (Minutes) 17 Resistance 3-4 Other UEs and LEs Therapeutic Exercises Supine Exercises Pelvic realignment exercises Side bilateral Comments 5 rep, 3 sec hold all exercises Sitting Exercises Alvaro pin massage Side left Comments See saw motion along vastus lateralis and rectus femoris Manual Therapy Treatment Other Other Manual Treatments Baiting Hollow KT to support left knee with c strip under knee and B I strips medial and lateral knee PT-OP-T Assessment and Plan Start: 03/08/21 13:57 Freq: Status: Active Protocol: Document 03/25/21 13:47 MB (Rec: 03/25/21 14:33 MB [id number]) Physical Therapy Assessment Rehab Potential Rehabilitation Potential Fair Evaluation Complexity Number of Personal Factors/Comorbidities 1-2 Number of Body Systems Impaired 1-2 Clinical Presentation at Evaluation Evolving Impairments Impairments Activity Tolerance,Balance, Functional Mobility,Gait,Pain, Posture,ROM,Soft Tissue Mobility,Strength Other Impairments Personal factors include pt lives alone and has to do all chores herself. Also, she lives on [employer] and can only make it into PT 1x/wk initially. Body systems affected include musculoskeletal and neuromuscular. Here clinical presentation is evolving. Other Concerns Fall Risk Yes Goals 5 Electrical Foreman Goal (LTG) Pt will perform progressive HEP with I including pelvic realignment, flexibility, strengthening and balance to improve pain and function by . LTG Duration 8 weeks 4 Electrical Foreman Goal (LTG) Pt will gait train at least 1300 feet in 6 minutes without AD to improve community ambulation by 05/10/21. LTG Duration 8 weeks 3 Detention Goal (LTG) Pt will perform WNLs on a standardized balance test to decrease fall risk by 05/10/21. LTG Duration 8 weeks 2 Detention Goal (LTG) Pt will report a 33% improvement in sleeping ( awakening no more than 1x/ night) d/t pain to improve restorative rest by 05/10/21. LTG Duration 8 weeks 1 Detention Goal (LTG) Pt will present with an improved LEF score to reflect no more than 30% impairment to reflect improved function by 05/10/21. LTG Duration 8 weeks Assessment Summary Assessment Initiated recumbent stepper today and pt performs well. Added pelvic realignment exercises and self-massage with rolling pin. Good first visit and will progress flexibility and strengthening in future treatment dates. Physical Therapy Plan Frequency and Duration Frequency of Treatment 1x/wk, then 2x/wk Duration of Treatment 8 weeks Plan of Care Start Date 03/10/21 Plan of Care End Date 05/10/21 Therapeutic Interventions Therapeutic Interventions Aquatic Therapy,Balance Training,Canalithic Repositioning,Gait Training, Home Exercise Program,Joint Mobilizations,Manual Therapy, Neuromuscular Re-education, Patient/Caregiver Education, Self-Care/Home Management,Soft Tissue Mobilization,Taping, Therapeutic Activities, Therapeutic Exercises Modalities Cold Pack/Ice Massage,Hot Packs Next Visit Focus/Plan Next Note Type Treatment Note Next Visit Plan Con't with taping left knee--c strip under knee, B I strips medial and lateral knee Review pelvic realignment exercises as needed. Con't with recumbent stepping, hamstring stretch with ankle pump in hook lying, Shivam stretch, hook lying clam with or without band--do not do side lying clam. Only add these three exercises on next visit. In future treatments, add calf stretch in standing for soleus and gastroc, consider upright stationary bike. Pt would like to get to core progression with bridge
--- NOTE | 2021-03-30 18:11 | PT.OTN ---
Current Diagnoses Unilateral primary osteoarthritis, left knee (03/30/21) Physical Therapy Treatment Note PT-OP-A Visit Information Start: 03/08/21 13:57 Freq: Status: Active Protocol: Document 03/30/21 13:45 MA (Rec: 03/30/21 14:35 MA [id number]) Out-Patient Physical Therapy Visit Information Visit Information Visit Type Treatment Note Visit Note [facility] Visit Start Time 13:45 Visit Stop Time 14:25 Total Visit Minutes 40 Visit Number 3 Number of COMPUTER ASSISTANT Visits 1 PT-OP-B Current Condition Start: 03/08/21 13:57 Freq: Status: Active Protocol: Document 03/10/21 14:32 MB (Rec: 03/10/21 15:14 MB [id number]) Current Condition History of Current Condition Onset Date At least two years Current Complaints Left knee pain that goes down the leg and occ aching up the left leg History of Current Condition Pt reports a history of left knee pain that is getting worse. She had a meniscus repair 10-12 years ago and it still hurt afterwards. She takes a Tylenol and Ibuprofen at night time or she cannot fall asleep. She is waking up at night time d/t pain at least three times. PMH includes arthritis, back pain, Crohn's disease, DMII, hearing problems, kidney disease. She has trouble with taking the two trashcans out. She denies true falls and has an cable splicer assistant dog for balance. She has stumbled a couple of times. Going up and down the steps is difficult and she holds on real tight. She has three steps to enter her home. Pt reports pain up to 7/10 in her left knee, lateral leg and up to SI joint. Prior Treatments and Tests X-ray left knee 02/10/21: mild to moderate tricompartmental OA more prominent in medial femoral tibial comparment, mod suprapatellar joint effusion Treatment Goals Patient/Caregiver Goals To decrease left knee and leg pain PT-OP-C Subjective Start: 03/08/21 13:57 Freq: Status: Active Protocol: Document 03/30/21 13:45 MA (Rec: 03/30/21 14:35 MA [id number]) OP-PT Subjective Patient Comments Patient Comments Pt states, I did not get the Voltaren cream PT-OP-G Mobility & Gait Start: 03/08/21 13:57 Freq: Status: Active Protocol: Document 03/10/21 14:32 MB (Rec: 03/10/21 16:14 MB [id number]) OP Gait Assessment Gait Gait Assistance Required: Independent Distance (Feet) 25 Assistive Devices Assistive Device None Comments Gait Comments Decreased step-length and foot clearance, decreased heel- strike, slow gait speed and decreased toe push off PT-OP-J Posture/Palpation/Skin Start: 03/08/21 13:57 Freq: Status: Active Protocol: Document 03/10/21 14:32 MB (Rec: 03/10/21 16:14 MB [id number]) Posture Evaluation Comments Posture Comments Standing in socks: Dowager's hump, anterior tilt pelvis, increased lumbar lordosis, left shoulder is higher than the right, increased WB lateral feet, increased Coral angle left greater than the right, right scapular lower than the left, right iliac crest higher than the left PT-OP-K Range of Motion Start: 03/08/21 13:57 Freq: Status: Active Protocol: Document 03/10/21 14:32 MB (Rec: 03/10/21 16:14 MB [id number]) Knee Goniometric Range of Motion Knee ROM Limitations Comments AROM in supine: right knee 2- 115 deg; left knee 12-110 deg PT-OP-M Strength Start: 03/08/21 13:57 Freq: Status: Active Protocol: Document 03/10/21 14:32 MB (Rec: 03/10/21 16:14 MB [id number]) Hip Strength Hip Manual Muscle Testing Left Flexion (L2) 4 Good Abduction 4 Good Adduction 4 Good Right Flexion (L2) 5 Normal Abduction 5 Normal Adduction 5 Normal Knee Strength Knee Manual Muscle Testing Left Flexion (S2) 4 Good Extension (L3) 4 Good Right Flexion (S2) 5 Normal Extension (L3) 5 Normal Ankle/Foot Strength Ankle and Foot Manual Muscle Testing Left Dorsiflexion (L4) 5 Normal Right Dorsiflexion (L4) 5 Normal Toe Strength Toe Manual Muscle Testing Left Great Toe Extension 4 Good Right Great Toe Extension 4 Good PT-OP-Q Treatments Start: 03/08/21 13:57 Freq: Status: Active Protocol: Document 03/30/21 13:45 MA (Rec: 03/30/21 14:35 MA [id number]) Cardio Equipment Recumbent Elliptical (Biodex) Duration (Minutes) 17 Resistance 3-4 Seat Position closest setting Other UEs and LEs Therapeutic Exercises Supine Exercises Clamshell Supine Exercise Name Hip ER Side bilateral Equipment Used level 2 TB Reps/Minutes x10 Comments added to HEP Shivam Stretch Side bilateral Reps/Minutes 2x1' HS stretch Supine Exercise Name with ankle pumps Side bilateral Reps/Minutes 5x 5 pumps Comments added to HEP- pt had to bend R knee while doing L side for pain relief Pelvic realignment exercises Side bilateral Comments 5 rep, 3 sec hold all exercises Sitting Exercises Alvaro pin massage Side left Comments See saw motion along vastus lateralis and rectus femoris Self-Care/Home Management Treatment Education Other Education HEP: supine clamshells, shivam stretch, supine HS stretch with ankle pumps PT-OP-T Assessment and Plan Start: 03/08/21 13:57 Freq: Status: Active Protocol: Document 03/30/21 13:45 MA (Rec: 03/30/21 14:35 MA [id number]) Physical Therapy Assessment Goals 5 Senior Living Goal (LTG) Pt will perform progressive HEP with I including pelvic realignment, flexibility, strengthening and balance to improve pain and function by . LTG Duration 8 weeks 4 Senior Living Goal (LTG) Pt will gait train at least 1300 feet in 6 minutes without AD to improve community ambulation by 05/10/21. LTG Duration 8 weeks 3 Restaurant Culinary Manager Goal (LTG) Pt will perform WNLs on a standardized balance test to decrease fall risk by 05/10/21. LTG Duration 8 weeks 2 Senior Living Goal (LTG) Pt will report a 33% improvement in sleeping ( awakening no more than 1x/ night) d/t pain to improve restorative rest by 05/10/21. LTG Duration 8 weeks 1 Senior Living Goal (LTG) Pt will present with an improved LEF score to reflect no more than 30% impairment to reflect improved function by 05/10/21. LTG Duration 8 weeks Assessment Summary Assessment Reviewed pelvic realignment exercise with pt able to complete independently without cues when allowed to follow along on printed HEP. Added in self-STM to lateral HS in conjunction with vastus lateralis and rectus femoris as well as supine HS stretch with ankle pumps, shivam stretch, and supine clamshells with level 2 band. Replaced KT tape for L knee stability and educated pt on LE musculature while performing STM. Physical Therapy Plan Frequency and Duration Frequency of Treatment 1x/wk, then 2x/wk Duration of Treatment 8 weeks Plan of Care Start Date 03/10/21 Plan of Care End Date 05/10/21 Therapeutic Interventions Therapeutic Interventions Aquatic Therapy,Balance Training,Canalithic Repositioning,Gait Training, Home Exercise Program,Joint Mobilizations,Manual Therapy, Neuromuscular Re-education, Patient/Caregiver Education, Self-Care/Home Management,Soft Tissue Mobilization,Taping, Therapeutic Activities, Therapeutic Exercises Modalities Cold Pack/Ice Massage,Hot Packs Next Visit Focus/Plan Next Note Type Treatment Note Next Visit Plan Review new HEP: hamstring stretch with ankle pump in hook lying, Shivam stretch, hook lying clam with or without band--do not do side lying clam. Con't with taping left knee--c strip under knee, B I strips medial and lateral knee Review pelvic realignment exercises as needed. Con't with recumbent stepping In future treatments, add calf stretch in standing for soleus and gastroc, consider upright stationary bike. Pt would like to get to core progression with bridge
--- NOTE | 2021-04-07 15:27 | PT.OTN ---
Current Diagnoses Unilateral primary osteoarthritis, left knee (04/07/21) Physical Therapy Treatment Note PT-OP-A Visit Information Start: 03/08/21 13:57 Freq: Status: Active Protocol: Document 04/07/21 14:37 SP (Rec: 04/07/21 15:55 SP [id number]) Out-Patient Physical Therapy Visit Information Visit Information Visit Type Treatment Note Visit Note [facility] Visit Start Time 14:37 Visit Stop Time 15:27 Total Visit Minutes 50 Visit Number 4 Number of STUDENT SPECIALIST Visits 2 Evaluation Information Evaluation Date 03/10/21 PT-OP-B Current Condition Start: 03/08/21 13:57 Freq: Status: Active Protocol: Document 03/10/21 14:32 MB (Rec: 03/10/21 15:14 MB [id number]) Current Condition History of Current Condition Onset Date At least two years Current Complaints Left knee pain that goes down the leg and occ aching up the left leg History of Current Condition Pt reports a history of left knee pain that is getting worse. She had a meniscus repair 10-12 years ago and it still hurt afterwards. She takes a Tylenol and Ibuprofen at night time or she cannot fall asleep. She is waking up at night time d/t pain at least three times. PMH includes arthritis, back pain, Crohn's disease, DMII, hearing problems, kidney disease. She has trouble with taking the two trashcans out. She denies true falls and has an laboratory chemical assistant dog for balance. She has stumbled a couple of times. Going up and down the steps is difficult and she holds on real tight. She has three steps to enter her home. Pt reports pain up to 7/10 in her left knee, lateral leg and up to SI joint. Prior Treatments and Tests X-ray left knee 02/10/21: mild to moderate tricompartmental OA more prominent in medial femoral tibial comparment, mod suprapatellar joint effusion Treatment Goals Patient/Caregiver Goals To decrease left knee and leg pain PT-OP-C Subjective Start: 03/08/21 13:57 Freq: Status: Active Protocol: Document 04/07/21 14:37 SP (Rec: 04/07/21 15:55 SP [id number]) OP-PT Subjective Patient Comments Patient Comments Pt reports doing quite better. Still has some residual pain in posterior L knee laterally. Pt stated the K taping helped alot and still on but not sure is as strong, wishes to reapply. PT-OP-G Mobility & Gait Start: 03/08/21 13:57 Freq: Status: Active Protocol: Document 03/10/21 14:32 MB (Rec: 03/10/21 16:14 MB [id number]) OP Gait Assessment Gait Gait Assistance Required: Independent Distance (Feet) 25 Assistive Devices Assistive Device None Comments Gait Comments Decreased step-length and foot clearance, decreased heel- strike, slow gait speed and decreased toe push off PT-OP-J Posture/Palpation/Skin Start: 03/08/21 13:57 Freq: Status: Active Protocol: Document 03/10/21 14:32 MB (Rec: 03/10/21 16:14 MB [id number]) Posture Evaluation Comments Posture Comments Standing in socks: Dowager's hump, anterior tilt pelvis, increased lumbar lordosis, left shoulder is higher than the right, increased WB lateral feet, increased Coral angle left greater than the right, right scapular lower than the left, right iliac crest higher than the left PT-OP-K Range of Motion Start: 03/08/21 13:57 Freq: Status: Active Protocol: Document 03/10/21 14:32 MB (Rec: 03/10/21 16:14 MB [id number]) Knee Goniometric Range of Motion Knee ROM Limitations Comments AROM in supine: right knee 2- 115 deg; left knee 12-110 deg PT-OP-M Strength Start: 03/08/21 13:57 Freq: Status: Active Protocol: Document 03/10/21 14:32 MB (Rec: 03/10/21 16:14 MB [id number]) Hip Strength Hip Manual Muscle Testing Left Flexion (L2) 4 Good Abduction 4 Good Adduction 4 Good Right Flexion (L2) 5 Normal Abduction 5 Normal Adduction 5 Normal Knee Strength Knee Manual Muscle Testing Left Flexion (S2) 4 Good Extension (L3) 4 Good Right Flexion (S2) 5 Normal Extension (L3) 5 Normal Ankle/Foot Strength Ankle and Foot Manual Muscle Testing Left Dorsiflexion (L4) 5 Normal Right Dorsiflexion (L4) 5 Normal Toe Strength Toe Manual Muscle Testing Left Great Toe Extension 4 Good Right Great Toe Extension 4 Good PT-OP-Q Treatments Start: 03/08/21 13:57 Freq: Status: Active Protocol: Document 04/07/21 14:37 SP (Rec: 04/07/21 15:55 SP [id number]) Cardio Equipment Recumbent Elliptical (Biodex) Other not available but Con't with recumbent stepping, upbike hurt last tx. Bicycle (Upright) Duration (Minutes) 2 Resistance 6 Seat Position lowest Other stopped at 2 min do to posterior L knee pain with revolutions Therapeutic Exercises Supine Exercises Clamshell Supine Exercise Name Hip ER- HEP review Side bilateral Equipment Used level 2 TB Reps/Minutes x10 Comments cued x1 for TA draw in neutral pelvis Shivam Stretch Supine Exercise Name Reviewed HEP Side bilateral Reps/Minutes 2x1' Comments good feedback anterior hip stretch, no LS arch good neutral spine HS stretch Supine Exercise Name with ankle pumps Side bilateral Reps/Minutes 5x 5 pumps Comments reviewed HEP for L distal HS pain relief Pelvic realignment exercises Supine Exercise Name HEP review Side bilateral Reps/Minutes 5 rep, 3 sec hold all exercises Comments cued slow easy engagement, neutral pelvis- better understand Sitting Exercises sit<>stands Sitting Exercise Name added to HEP Resistance AROM> TB #1 loop Equipment Used elevated black table 19-20 , hands contact lap (hands lap/ front/cross bdy) Reps/Minutes x2 lateral patella pain,x5 painfree post K taping Comments cued maintain knees apart ascend/descend Alvaro pin massage Side left Equipment Used rolling pin Comments See saw motion along vastus lateralis, rectus femoris and lateral HS Manual Therapy Treatment Soft Tissue Mobilization distal semitendonosis/ membranosis Body Location L Mobilization Type Myofascial Release,Strumming, Sustained Pressure Intensity/Depth Superficial Body Position Hooklying, elevated LE on wedge Comments tender palpation so stopped, performed post upright bike Taping K taping Body Location L knee Treatment Focus patella stability Type of Tape Kinesio Tape Skin Inspection intact normal color Comments C shaped medial/lateral- anchored anterior tibia and 50 % tension lateral to superior patella. PT-OP-T Assessment and Plan Start: 03/08/21 13:57 Freq: Status: Active Protocol: Document 04/07/21 14:37 SP (Rec: 04/07/21 15:55 SP [id number]) Physical Therapy Assessment Goals 5 [employer] Goal (LTG) Pt will perform progressive HEP with I including pelvic realignment, flexibility, strengthening and balance to improve pain and function by . LTG Duration 8 weeks 4 Shelter Goal (LTG) Pt will gait train at least 1300 feet in 6 minutes without AD to improve community ambulation by 05/10/21. LTG Duration 8 weeks 3 Shelter Goal (LTG) Pt will perform WNLs on a standardized balance test to decrease fall risk by 05/10/21. LTG Duration 8 weeks 2 [employer] Goal (LTG) Pt will report a 33% improvement in sleeping ( awakening no more than 1x/ night) d/t pain to improve restorative rest by 05/10/21. LTG Duration 8 weeks 1 [employer] Goal (LTG) Pt will present with an improved LEF score to reflect no more than 30% impairment to reflect improved function by 05/10/21. LTG Duration 8 weeks Assessment Summary Assessment Extra time spent needed for better understanding of HEP review all, required mod cues for set up and proper form during pelvic realignment, recall of shivam stretch, and HS stretch w/ AP with good feedback results lessened posterior knee pain. Reapplied K taping L knee with good feedback no pain during initiated STS's, added to HEP AROM> TB loop painfree. Pt felt more confident with HEP and painfree alignment. STUDENT SPECIALIST discussed with more more into WB activities next tx& gait. Physical Therapy Plan Frequency and Duration Frequency of Treatment 1x/wk, then 2x/wk Duration of Treatment 8 weeks Plan of Care Start Date 03/10/21 Plan of Care End Date 05/10/21 Therapeutic Interventions Therapeutic Interventions Aquatic Therapy,Balance Training,Canalithic Repositioning,Gait Training, Home Exercise Program,Joint Mobilizations,Manual Therapy, Neuromuscular Re-education, Patient/Caregiver Education, Self-Care/Home Management,Soft Tissue Mobilization,Taping, Therapeutic Activities, Therapeutic Exercises Modalities Cold Pack/Ice Massage,Hot Packs Next Visit Focus/Plan Next Note Type Treatment Note Next Visit Plan Review HEP recall form as needed, kamaljit STS new and progress standing functional strengthening, balance, gait. Con't with taping left knee--c strip under knee, B I strips medial and lateral knee In future treatments, add calf stretch in standing for soleus and gastroc. Pt would like to get to core progression with bridge
--- NOTE | 2021-04-08 16:36 | PT.OPDS ---
Current Diagnoses Unilateral primary osteoarthritis, left knee (04/07/21) Visit Care Team Role Provider Type Jovan Nichols MD Attending Provider Physician Family Provider Primary Care Provider Referring Provider Specialty: Family Practice Address: [address] [place] [address], [facility] Email: [email or web address] Visit Number Visit Number 4 Discharge Summary PT-OP-B Current Condition Start: 03/08/21 13:57 Freq: Status: Active Protocol: Document 03/10/21 14:32 MB (Rec: 03/10/21 15:14 MB [id number]) Current Condition History of Current Condition Onset Date At least two years Current Complaints Left knee pain that goes down the leg and occ aching up the left leg History of Current Condition Pt reports a history of left knee pain that is getting worse. She had a meniscus repair 10-12 years ago and it still hurt afterwards. She takes a Tylenol and Ibuprofen at night time or she cannot fall asleep. She is waking up at night time d/t pain at least three times. PMH includes arthritis, back pain, Crohn's disease, DMII, hearing problems, kidney disease. She has trouble with taking the two trashcans out. She denies true falls and has an sales assistant entertainment and media dog for balance. She has stumbled a couple of times. Going up and down the steps is difficult and she holds on real tight. She has three steps to enter her home. Pt reports pain up to 7/10 in her left knee, lateral leg and up to SI joint. Prior Treatments and Tests X-ray left knee 02/10/21: mild to moderate tricompartmental OA more prominent in medial femoral tibial comparment, mod suprapatellar joint effusion Treatment Goals Patient/Caregiver Goals To decrease left knee and leg pain PT-OP-C Subjective Start: 03/08/21 13:57 Freq: Status: Active Protocol: Document 04/07/21 14:37 SP (Rec: 04/07/21 15:55 SP [id number]) OP-PT Subjective Patient Comments Patient Comments Pt reports doing quite better. Still has some residual pain in posterior L knee laterally. Pt stated the K taping helped alot and still on but not sure is as strong, wishes to reapply. PT-OP-G Mobility & Gait Start: 03/08/21 13:57 Freq: Status: Active Protocol: Document 03/10/21 14:32 MB (Rec: 03/10/21 16:14 MB [id number]) OP Gait Assessment Gait Gait Assistance Required: Independent Distance (Feet) 25 Assistive Devices Assistive Device None Comments Gait Comments Decreased step-length and foot clearance, decreased heel- strike, slow gait speed and decreased toe push off PT-OP-J Posture/Palpation/Skin Start: 03/08/21 13:57 Freq: Status: Active Protocol: Document 03/10/21 14:32 MB (Rec: 03/10/21 16:14 MB [id number]) Posture Evaluation Comments Posture Comments Standing in socks: Dowager's hump, anterior tilt pelvis, increased lumbar lordosis, left shoulder is higher than the right, increased WB lateral feet, increased Coral angle left greater than the right, right scapular lower than the left, right iliac crest higher than the left PT-OP-K Range of Motion Start: 03/08/21 13:57 Freq: Status: Active Protocol: Document 03/10/21 14:32 MB (Rec: 03/10/21 16:14 MB [id number]) Knee Goniometric Range of Motion Knee ROM Limitations Comments AROM in supine: right knee 2- 115 deg; left knee 12-110 deg PT-OP-M Strength Start: 03/08/21 13:57 Freq: Status: Active Protocol: Document 03/10/21 14:32 MB (Rec: 03/10/21 16:14 MB [id number]) Hip Strength Hip Manual Muscle Testing Left Flexion (L2) 4 Good Abduction 4 Good Adduction 4 Good Right Flexion (L2) 5 Normal Abduction 5 Normal Adduction 5 Normal Knee Strength Knee Manual Muscle Testing Left Flexion (S2) 4 Good Extension (L3) 4 Good Right Flexion (S2) 5 Normal Extension (L3) 5 Normal Ankle/Foot Strength Ankle and Foot Manual Muscle Testing Left Dorsiflexion (L4) 5 Normal Right Dorsiflexion (L4) 5 Normal Toe Strength Toe Manual Muscle Testing Left Great Toe Extension 4 Good Right Great Toe Extension 4 Good PT-OP-T Assessment and Plan Start: 03/08/21 13:57 Freq: Status: Active Protocol: Document 04/08/21 16:35 MB (Rec: 04/08/21 16:36 MB [id number]) Physical Therapy Plan Discharge Physical Therapy Discharge Reasons Patient Request Discharge Comments Pt calls to stop PT stating that she has more pressing medical issues to deal with at this time. D/c PT.
== END 2021-05-24 08:59 ==
LOC: PHYS 14:30
PROVIDERS: Family Provider Family Medicine; PCP Family Medicine; Referring Provider Family Medicine; Visit Provider Family Medicine
DX: M17.12 Unilateral primary osteoarthritis, left knee (principal)
CPT/HCPCS: 97110; 97161; 97535

== ENCOUNTER → 2021-05-02 13:33 | Outpatient (CLI) | payer MEDICARE, SELFPAY ==
[2019-01-03 13:15] VITALS: BMI 34.9
[2019-01-05 10:35] VITALS: PULSE 57; RESP 16; O2SAT 93
[2021-05-02 16:21] LABS: COVID19 -Nasal RAPID Negative (Negative)
== END ==
PROVIDERS: Family Provider Family Medicine; PCP Family Medicine; Referring Provider Nurse Practitioner Family; Visit Provider Nurse Practitioner Family
DX: Z01.812 Encounter for preprocedural laboratory examination (principal); Z20.822 Contact with and (suspected) exposure to COVID-19
CPT/HCPCS: 87635; C9803

== ENCOUNTER 2021-05-04 07:57 | Day surgery (SDC) | payer MEDICARE, SELFPAY ==
[2019-01-03 13:15] VITALS: BMI 34.9
[2019-01-05 10:35] VITALS: PULSE 57; RESP 16; O2SAT 93
--- NOTE | 2021-05-04 | PATH_ITS ---
[facility] Accession Number: [id number] . 01 Material submitted: . PART A: stomach - ANTRUM BODY BIOPSY PART B: gastrointestinal site - GASTRIC POLYP STOMACH PART C: colon - RIGHT COLON RANDOM BIOPSIES PART D: colon - TRANSVERSE RANDOM BIOPSIES PART E: colon - LEFT COLON RANDOM BIOPSIES . 02 Diagnosis: A. Stomach, Antrum, Biopsy: Antral mucosa with mild chronic gastritis. Negative for Helicobacter by immunohistochemistry. Negative for intestinal metaplasia. Negative for dysplasia and malignancy. . B. Stomach, Polyp, Biopsy: Fundic gland polyp. No evidence of Helicobacter on H/E stain. Negative for intestinal metaplasia. Negative for dysplasia and malignancy. . C. Right Colon, Transverse Colon, Left Colon, Random Biopsies: Colonic mucosa with no diagnostic abnormality. Negative for active, chronic, and microscopic colitis. Negative for dysplasia and malignancy. [facility] 05/10/2021 1556 Local . 02 Electronically signed: . Maria Alejandra Villalobos MD, Pathologist NPI- [id number] . 01 Gross description: . Part A: ANTRUM BODY BIOPSY: Received in formalin are 4 fragment(s) of johnson, soft tissue measuring 0.1 x 0.1 x 0.1 cm to 0.3 x 0.3 x 0.2 cm submitted entirely in 1 cassette(s) Part B: GASTRIC POLYP STOMACH: Received in formalin are 3 fragment(s) of johnson, soft tissue measuring 0.1 x 0.1 x 0.1 cm to 0.3 x 0.2 x 0.2 cm submitted entirely in 1 cassette(s) Part C: RIGHT COLON RANDOM BIOPSIES: Received in formalin are multiple fragment(s) of johnson, soft tissue measuring 0.1 x 0.1 x 0.1 cm to 0.3 x 0.2 x 0.2 cm submitted entirely in 1 cassette(s) Part D: TRANSVERSE RANDOM BIOPSIES: Received in formalin are 4 fragment(s) of johnson, soft tissue measuring 0.1 x 0.1 x 0.1 cm to 0.2 x 0.2 x 0.1 cm submitted entirely in 1 cassette(s) Part E: LEFT COLON RANDOM BIOPSIES: Received in formalin are 3 fragment(s) of johnson, soft tissue measuring 0.1 x 0.1 x 0.1 cm to 0.3 x 0.2 x 0.2 cm submitted entirely in 1 cassette(s) /HECTOR 05/05/20219 Local . 02 Microscopic: . A. An immunohistochemical stain was performed to evaluate for Helicobacter organisms and is negative. The control stain showed appropriate reactivity. . * This test was developed and its performance characteristics determined by [employer] [facility]. It has not been cleared or approved by the U.S. Food and Drug Administration. The FDA has determined that such clearance or approval is not necessary. This test is used for clinical purposes. It should not be regarded as investigational or for research. . 02 Pathologist provided ICD-10: R10.31 . 02 CPT . 320153, 891588, 353699, 881724, 848761, W42127 Performed at: 01 [facility] [address] [place] [address], [place], [place] [id number] MD Girish Heller MD Phone: [phone] Performed at: [facility] [address] [place], [place] [id number] MD Maria Alejandra Villalobos MD Phone: [phone]
[2021-05-04 08:23] VITALS: BP 157/85; PULSE 83; RESP 16; TEMP 36.3; O2SAT 99; BMI 33.2
[2021-05-04] MEDS: SODIUM CHLORIDE 0.9% 1,000 ML 70 ML IV (08:36)
--- NOTE | 2021-05-04 09:12 | P.HP_ITS ---
History of Present Illness History of Present Illness Date Patient Seen: 05/04/21 Chief complaint: DX COLONOSCOPY Narrative: Patient is a very pleasant 75-year-old female who presented for EGD and colonoscopy. She does have a personal history of Crohn's disease. She has had small bowel Crohn's disease identified in the past. She recently had an episode of suspected diverticulitis versus Crohn's exacerbation. Her last colonoscopy was in 2018, unfortunately rate and able to intubate the terminal ileum at that time. In addition she has been having upper abdominal pain. This is located in the epigastric region. She also has had worsening voice changes. She has not had any improvement with PPI. She is not on any medications for Crohn's disease. Patient History Medical History Abnormal Pap smear of cervix Anemia in chronic kidney disease Angioedema Chronic low back pain with sciatica Crohn's disease Diabetes mellitus Duodenal ulcer GERD (gastroesophageal reflux disease) Hyperlipidemia Surgical History History of left oophorectomy Status post cone biopsy of cervix Status post laparoscopic cholecystectomy Family & Social History Family History Father Diabetes mellitus Social History: household members none Tobacco & Substance use: Smoking Status Former smoker alcohol intake current alcohol intake frequency a few times a week Substance Use Type marijuana Meds Home Medications and Allergies Home Medications Medication Instructions Recorded Confirmed Type Accu-Chek Advantage Meter 0 dev TOPICAL TID #0 01/03/19 02/02/21 History epinephrine 0.3 mg/0.3 mL 0.3 ml IM Q5-15M PRN #2 each 11/26/19 05/04/21 Rx injection, auto-injector insulin syringe-needle U-100 0.5 #100 ea 07/05/20 02/02/21 Rx mL 31 gauge x 5/16 ([facility] Syringes) diphenhydramine HCl 25 mg tablet 25 mg PO .COMPLEX PRN 08/17/20 05/04/21 History (Benadryl Allergy) lancets (Accu-Chek Softclix See Rx Instructions .ROUTE 09/08/20 02/02/21 Rx Lancets) .COMPLEX #300 ea insulin glargine 100 unit/mL 40 unit (0.4 mL) SUBCUT DAILY #30 01/13/21 05/04/21 Rx subcutaneous solution (Lantus ml U-100 Insulin) blood sugar diagnostic (Accu-Chek #100 strip 04/05/21 Rx Guide test strips) glipizide 2.5 mg tablet, extended 2.5 mg PO DAILY #90 tab 05/02/21 05/04/21 Rx release 24 hr omeprazole 20 mg capsule,delayed 20 mg PO DAILY #90 cap 05/02/21 05/04/21 Rx release atorvastatin 20 mg tablet 20 mg PO DAILY 05/04/21 05/04/21 History metformin 500 mg tablet 500 mg PO DAILY 05/04/21 05/04/21 History Allergies Allergy/AdvReac Type Severity Reaction Status Date / Time lisinopril Allergy Severe Swelling Verified 02/02/21 11:53 of Lip/Tongue/Throat Iodinated Contrast Media Allergy Verified 02/02/21 14:52 Exam Vital Signs (past 8 hours): - 05/04/21 08:23 Temperature 97.3 F L Pulse Rate 83 Respiratory Rate 16 Blood Pressure 157/85 H Pulse Oximetry 99 Oxygen Delivery Method Room Air Const General: cooperative, healthy appearing, comfortable, well developed and well groomed HENMT Head: normal to inspection Eyes General: appearance normal, both eyes and all related structures Resp Effort & Inspection: normal respiratory effort, able to speak in complete sentences and abnormal respiratory pattern Auscultation: clear to auscultation bilaterally Cardio Rate: regular rate Rhythm: regular rhythm Heart Sounds: S1 normal and S2 normal Assessment & Plan Assessment & Plan narrative: Will proceed with EGD and colonoscopy, further recommendations to follow Time Spent With Patient Critical Care time: I spent a total of [] minutes of critical care time on this patient's care to day; this time is exclusive of procedural time.
[2021-05-04 09:47] VITALS: BP 120/64; PULSE 80; RESP 17; TEMP 36.3; O2SAT 94
--- NOTE | 2021-05-04 09:56 | P.OP.EGD&C_ITS ---
Operative Date/Time/Diagnoses Date of procedure: 05/04/21 Time of procedure: 09:18 Procedure Notes Procedure in detail: Surgeon: Filomena Marquez DO Procedure: Esophagogastroduodenoscopy with biopsy and colonoscopy with biopsy Preoperative diagnosis: Epigastric abdominal pain Right lower quadrant abdominal pain History of Crohn's disease Recent episode transverse diverticulitis Postoperative diagnosis: Gastric polyps, biopsied Mild antral, body gastritis biopsied Normal-appearing colon mucosa, biopsies of right, left, and transverse colon Scattered diverticulosis in the transverse, descending, and sigmoid colon Unable to intubate terminal ileum due to stenosis Moderate internal and external hemorrhoids Otherwise unremarkable EGD and colonoscopy Medications: Monitored anesthesia care, please see Anesthesia note Preanesthesia Assessment An H and P was performed/updated and the Px?s ASA class is 3. The procedure was discussed in detail with the patient. The potential risks and complications including infection, bleeding, missed lesions, perforation, need for surgery in case of perforation, prolonged hospital stay, and were explained. A brief question and answer period was allotted and once all questions were answered, in formed consent was obtained. The patient was brought back to the procedure room and placed on standard monitoring. The patient?s vital signs were monitored continuously throughout the entire procedure. Prior to starting, a timeout was performed to confirm the patient?s identity, allergies, medications, and procedure. Procedure in detail The patient was placed in left lateral decubitus position and a bite block was inserted. The tip of the upper endoscope was placed into the mouth and advanced without difficulty under direct visualization into the esophagus. Esophagus: Normal appearing esophagus Stomach: Mild antral and body gastritis, biopsied to rule out H pylori Gastric polyps scattered throughout the stomach, biopsied Duodenum: Normal appearing duodenum After the upper endoscopy, preparations were made for the colonoscopy. Once adequate sedation was obtained a KHURRAM was performed. The digital rectal examination did not reveal any palpable lesions. The tip of the colonoscope was placed in the anal canal and advanced without difficulty all the way to the cecum which was identified by the appendiceal orifice and the ileocecal valve. Second pass of the right colon was completed. Mucosa appeared unremarkable throughout the colon, biopsies were obtained from the left, right, and transverse colon to rule out quiescent colitis. Scattered diverticulosis of the sigmoid, descending, and transverse colon were appreciated. In addition moderate/grade 3 hemorrhoids were noted internal and external rotations. The patient tolerated the procedure well and will be brought back to the recovery area to be discharged once criteria are met. The prep was judged to be good/excellent and adequate to identify polyps less than 5 mm. The withdrawal time was 18 minutes. Complications There were no complications and estimated blood loss was minimal. Recommendations Resume previous diet, high-fiber Continue outpatient medications Follow-up pathology results Repeat colonoscopy after pathology results are reviewed Follow-up at our office to be scheduled An emergency contact number was given to the patient for any complications related to the procedure
[2021-05-04 09:57] VITALS: BP 107/76; PULSE 80; RESP 16; O2SAT 100
[2021-05-04 10:03] VITALS: BP 141/79; PULSE 73; RESP 19; TEMP 36.5; O2SAT 96
[2021-05-04 10:10] VITALS: TEMP 36.2
== END 2021-05-04 10:20 | disposition home or self-care (01) ==
PROVIDERS: Student in an Organized Health Care Education/Training Program; Family Provider Family Medicine; PCP Family Medicine; Referring Provider Internal Medicine Gastroenterology; Visit Provider Internal Medicine Gastroenterology
PROC: 0DJD8ZZ Inspection of Lower Intestinal Tract, Via Natural or Artificial Opening Endoscopic (ICD-10-PCS; CPT 45378; principal; 2021-05-04 09:30)
PROC: 0DJ08ZZ Inspection of Upper Intestinal Tract, Via Natural or Artificial Opening Endoscopic (ICD-10-PCS; CPT 43235; 2021-05-04 09:30)
DX: R10.31 Right lower quadrant pain (principal); R10.13 Epigastric pain; Z87.19 Personal history of other diseases of the digestive system; N18.9 Chronic kidney disease, unspecified; D64.9 Anemia, unspecified; E78.5 Hyperlipidemia, unspecified; E11.9 Type 2 diabetes mellitus without complications; Z79.4 Long term (current) use of insulin; Z79.84 Long term (current) use of oral hypoglycemic drugs; K21.00 Gastro-esophageal reflux disease with esophagitis, without bleeding; K29.50 Unspecified chronic gastritis without bleeding; K31.7 Polyp of stomach and duodenum; K64.2 Third degree hemorrhoids; K56.699 Other intestinal obstruction unspecified as to partial versus complete obstruction; K57.30 Diverticulosis of large intestine without perforation or abscess without bleeding
CPT/HCPCS: 45380; 43239; 82962

== ENCOUNTER → 2021-05-05 11:46 | Outpatient (CLI) | payer MEDICARE, SELFPAY ==
[2019-01-03 13:15] VITALS: BMI 34.9
[2019-01-05 10:35] VITALS: PULSE 57; RESP 16; O2SAT 93
[2021-05-05 12:25] LABS: Appearance Urine UA CLEAR; Bilirubin Urine UA NEGATIVE (NEGATIVE); Color Urine UA YELLOW; Glucose Urine UA 2+ g/dL (Negative); Ketones Urine UA NEGATIVE (NEGATIVE); Leukocyte Esterase Urine UA TRACE (NEGATIVE); Nitrite Urine UA NEGATIVE (Negative); Occult Blood Urine UA TRACE-INTACT (Negative); Protein Urine UA NEGATIVE (Negative); Urobilinogen Urine UA 0.2 E.U./dL (0.2)
[2021-05-05 12:30] LABS: RBC Urine 1-5/HPF (0-5/HPF); Renal Epithelial Cells Urine 1-5/HPF (0-1/HPF); WBC Urine 5-10/HPF (0-5/HPF)
[2021-05-05 12:31] LABS: Bacteria Urine None Seen; Culture Indicated Urine Specimen Cultured; Squamous Epithelial Cell Urine 1-5 /HPF (0-5/HPF)
== END ==
PROVIDERS: Family Provider Family Medicine; PCP Family Medicine; Referring Provider Family Medicine; Visit Provider Family Medicine
DX: R30.0 Dysuria (principal)
CPT/HCPCS: 81001; 87086

== ENCOUNTER 2021-05-11 12:20 | Emergency (ER) | payer MEDICARE, SELFPAY ==
[2019-01-03 13:15] VITALS: BMI 34.9
[2019-01-05 10:35] VITALS: PULSE 57; RESP 16; O2SAT 93
[2021-05-11] VITALS (8 sets, daily range): BP systolic 118–141; BP diastolic 57–69; PULSE 69–78; RESP 15–35; TEMP 36.1; O2SAT 93–97; BMI 33.2
--- NOTE | 2021-05-11 13:04 | ED_ITS ---
HPI - Abdominal Pain General Chief Complaint: Abdominal Pain Stated Complaint: Fever and low abd pain post colonoscopy 05/04 Time Seen by Provider: 05/11/21 12:57 History of Present Illness HPI narrative: 75-year-old female former smoker with history of hyperlipidemia, hypertension and diverticulitis presents with a family friend and a chief complaint of worsening lower abdominal pain fever and nausea over the past week or so. She recently had panendoscopy for ongoing evaluation of diverticulitis and mentions that she was told she might have a minor urinary tract infection. She denies any exacerbation with eating or drinking but does admit to a slightly decreased appetite. Her pain is worse when she moves and improves with rest. She states it is largely in the right lower quadrant and radiates across her lower abdomen a bit. She denies any dysuria, frequency or urgency. She has had no runny nose, sore throat or cough. She denies any chest pain or shortness of breath. Related Data Home Medications Medication Instructions Recorded Confirmed Accu-Chek Advantage Meter 0 dev TOPICAL TID #0 01/03/19 02/02/21 diphenhydramine HCl 25 mg tablet 25 mg PO .COMPLEX PRN 08/17/20 05/04/21 (Benadryl Allergy) atorvastatin 20 mg tablet 20 mg PO DAILY 05/04/21 05/04/21 metformin 500 mg tablet 500 mg PO DAILY 05/04/21 05/04/21 Previous Rx's Medication Instructions Recorded epinephrine 0.3 mg/0.3 mL 0.3 ml IM Q5-15M PRN #2 each 11/26/19 injection, auto-injector insulin syringe-needle U-100 0.5 #100 ea 07/05/20 mL 31 gauge x 5/16 (Advocate Syringes) lancets (Accu-Chek Softclix See Rx Instructions .ROUTE 09/08/20 Lancets) .COMPLEX #300 ea insulin glargine 100 unit/mL 40 unit (0.4 mL) SUBCUT DAILY #30 01/13/21 subcutaneous solution (Lantus ml U-100 Insulin) blood sugar diagnostic (Accu-Chek #100 strip 04/05/21 Guide test strips) glipizide 2.5 mg tablet, extended 2.5 mg PO DAILY #90 tab 05/02/21 release 24 hr omeprazole 20 mg capsule,delayed 20 mg PO DAILY #90 cap 05/02/21 release cefpodoxime 200 mg tablet 200 mg PO BID 10 Days #20 tab 05/11/21 hydrocodone 5 mg-acetaminophen 325 1 tab PO Q4-6H PRN #10 tab 05/11/21 mg tablet ondansetron 4 mg disintegrating 4 mg PO TID-QID PRN #10 tab 05/11/21 tablet Allergies Allergy/AdvReac Type Severity Reaction Status Date / Time lisinopril Allergy Severe Swelling Verified 02/02/21 11:53 of Lip/Tongue/Throat Iodinated Contrast Media Allergy Verified 02/02/21 14:52 Review of Systems Review of Systems Narrative: GENERAL: See HP HEENT: Denies sinus pain, ear pain, sore throat, difficulty swallowing, dizziness. RESPIRATORY: Denies dyspnea, cough, wheezing, hemoptysis, sputum. CARDIOVASCULAR: Denies chest pain, palpitations, orthopnea, edema, GASTROINTESTINAL: See HP : Denies dysuria, frequency, incontinence, hematuria, urinary retention. MUSCULOSKELETAL: denies weakness, joint pain, or bony pain SKIN: Denies rash, skin lesions, or other NEUROLOGIC: Denies weakness, headache, numbness, change in speech, confusion, seizures, incoordination. PSYCHIATRIC: No concerning psychosocial issues. 12 point review of systems is negative except for those stated above Patient History Medical History Abnormal Pap smear of cervix Anemia in chronic kidney disease Angioedema Chronic low back pain with sciatica Crohn's disease Diabetes mellitus Duodenal ulcer GERD (gastroesophageal reflux disease) Hyperlipidemia Surgical History History of left oophorectomy Status post cone biopsy of cervix Status post laparoscopic cholecystectomy Family History Father Diabetes mellitus Social History household members: none Smoking Status: Former smoker alcohol intake: current eating out: rarely or never Type(s) of exercise: walking Smoking Status: Former smoker alcohol intake frequency: a few times a week Substance Use Type: marijuana Exam Narrative Exam Narrative: GENERAL: [75] year old patient appears stated age. Well-developed patient, in mild distress. HEAD: Atraumatic. Normocephalic. EYES: Pupils equal round and reactive. Extraocular motions intact. No scleral icterus. No injection or drainage. ENT: Nose without bleeding, purulent drainage. Throat without erythema, tonsillar hypertrophy or exudate. Airway patent. NECK: Trachea midline. Non tender CARDIOVASCULAR: Regular rate and rhythm without murmurs, gallops, or rubs. RESPIRATORY: Clear to auscultation. Breath sounds equal bilaterally. No wheezes, rales, or rhonchi. GASTROINTESTINAL: Abdomen soft, tender in the right lower quadrant and suprapubic region, bowel sounds are present nondistended. EXTREMITIES: No edema or joint tenderness. BACK: Nontender without deformity or crepitance. No flank tenderness. NEURO: AOx3. SKIN: No rash or erythema of visible areas Initial Vital Signs Initial Vital Signs: Vital Signs Temperature 96.9 F L 05/11/21 12:31 Pulse Rate 78 05/11/21 12:31 Respiratory Rate 18 05/11/21 12:31 Blood Pressure 137/69 05/11/21 12:31 Pulse Oximetry 97 05/11/21 12:31 Course Orders Ordered: ED Orders 05/11/21 12:42 EKG-12 Lead Stat 05/11/21 13:15 COVID19 -Nasal swab/Pre-Proc Stat Complete Blood Count AUTO DIFF Stat Comprehensive Metabolic Panel Stat Ictotest Urine Stat Lactate (Lactic Acid) Stat Lipase Stat Urinalysis and Microscopic Stat Urine Culture Stat 05/11/21 13:23 CT abdomen pelvis w con Stat 05/11/21 14:05 Blood Culture Stat Discontinued Medications Diphenhydramine HCl (Diphenhydramine 50 Mg/Ml Vial) 25 mg IV NOW ONE Stop: 05/11/21 13:04 Last Admin: 05/11/21 13:53 Dose: 25 mg Documented by: ENEDELIA Hydromorphone HCl (Hydromorphone 0.5 Mg Inj) 0.5 mg IV NOW ONE Stop: 05/11/21 13:04 Last Admin: 05/11/21 13:25 Dose: 0.5 mg Documented by: ENEDELIA Sodium Chloride (Normal Saline 0.9%) 1,000 mls @ 1,000 mls/hr IV BOLUS ONE Stop: 05/11/21 14:02 Last Admin: 05/11/21 13:23 Dose: 1,000 mls/hr Documented by: ENEDELIA Methylprednisolone (Methylprednisolone 125 Mg/2 Ml Vial) 125 mg IV NOW ONE Stop: 05/11/21 13:04 Last Admin: 05/11/21 13:53 Dose: 125 mg Documented by: ENEDELIA Ondansetron HCl (Ondansetron 4 Mg/2 Ml Inj) 4 mg IV NOW ONE Stop: 05/11/21 13:04 Last Admin: 05/11/21 13:25 Dose: 4 mg Documented by: ENEDELIA Vital Signs Vital signs: Vital Signs - 8 hr 05/11/21 12:31 05/11/21 13:05 05/11/21 13:07 Temperature 96.9 F L Pulse Rate 78 74 75 Respiratory Rate 18 17 35 H Blood Pressure 137/69 134/69 Pulse Oximetry 97 97 96 05/11/21 13:28 05/11/21 13:30 05/11/21 14:00 Temperature Pulse Rate 76 75 69 Respiratory Rate 15 18 26 H Blood Pressure 141/63 H Pulse Oximetry 97 97 96 05/11/21 14:01 05/11/21 14:30 Temperature Pulse Rate 69 72 Respiratory Rate 20 19 Blood Pressure 132/57 L 118/58 L Pulse Oximetry 96 93 MDM - Abdominal Pain Lab Data Result diagrams: 05/11/21 13:15 05/11/21 13:15 Labs: Lab Results 05/11/21 05/11/21 05/11/21 Range/Units 13:15 13:15 13:15 WBC 4.7 (4.5-11.0) X10^3/uL RBC 4.26 (4.0-5.2) X10^6/uL Hgb 10.5 L (12.0-16.0) g/dL Hct 33.0 L (36-46) % MCV 77.6 L (80-100) fL MCH 24.8 L (26-34) PG MCHC 31.9 (30-36) % RDW 15.3 H (11.6-14.8) % Plt Count 191 (150-400) X10^3/uL Neut % (Auto) 75.1 H (50-75) % Lymph % (Auto) 9.8 L (25-40) % [place] % (Auto) 12.2 (3-14) % Eos % (Auto) 2.0 (2-4) % Baso % (Auto) 0.9 (0-2) % Neut # (Auto) 3600 (6259-8370) /uL Lymph # (Auto) 500 L (2950-4685) /uL [place] # (Auto) 600 (0-900) /uL Eos # (Auto) 100 (0-450) /uL Baso # (Auto) 0 (0-100) /uL Sodium 139 (137-145) mmol/L Potassium 4.0 (3.4-5.1) mmol/L Chloride 104 (98-107) mmol/L Carbon Dioxide 27 (22-32) mmol/L BUN 23 H (7-17) mg/dL Creatinine 1.46 H (0.52-1.04) mg/dL Estimated GFR 35.0 L (>60) mL/min BUN/Creatinine Ratio 15.8 (6-22) Glucose 154 H (80-110) mg/dL Lactate 1.0 (0.7-2.1) mmol/L Calcium 9.1 (8.4-10.2) mg/dL Total Bilirubin 0.7 (0.2-1.3) mg/dL AST 104 H (14-36) IU/L ALT 89 H (<35) IU/L Alkaline Phosphatase 102 (38-126) U/L Total Protein 7.7 (6.3-8.2) g/dL Albumin 4.2 (3.5-5.0) g/dL Globulin 3.5 (1.7-4.1) g/dL Albumin/Globulin Ratio 1.2 (1.0-2.8) Lipase 119 (23-300) U/L Urine Color Urine Appearance Urine pH (4.5-8.0) Ur Specific [place] (1.000-1.035) Urine Protein (Negative) Urine Glucose (UA) (Negative) g/dL Urine Ketones (NEGATIVE) Urine Occult Blood (Negative) Urine Nitrate (Negative) Urine Bilirubin (NEGATIVE) Ur Bilirubin Confirm (Negative) Urine Urobilinogen (0.2) E.U./dL Ur Leukocyte Esterase (NEGATIVE) Urine RBC (0-5/HPF) Urine WBC (0-5/HPF) Ur Squamous Epith Cells (0-5/HPF) Ur Transition Epith Cell (0-5/HPF) Urine Bacteria (None) Hyaline Casts (None) Granular Casts (None) Ur Culture Indicated? SARS-CoV-2 (PCR) (Negative) 05/11/21 05/11/21 Range/Units 13:15 13:15 WBC (4.5-11.0) X10^3/uL RBC (4.0-5.2) X10^6/uL Hgb (12.0-16.0) g/dL Hct (36-46) % MCV (80-100) fL MCH (26-34) PG MCHC (30-36) % RDW (11.6-14.8) % Plt Count (150-400) X10^3/uL Neut % (Auto) (50-75) % Lymph % (Auto) (25-40) % [place] % (Auto) (3-14) % Eos % (Auto) (2-4) % Baso % (Auto) (0-2) % Neut # (Auto) (3007-2442) /uL Lymph # (Auto) (1377-5599) /uL [place] # (Auto) (0-900) /uL Eos # (Auto) (0-450) /uL Baso # (Auto) (0-100) /uL Sodium (137-145) mmol/L Potassium (3.4-5.1) mmol/L Chloride (98-107) mmol/L Carbon Dioxide (22-32) mmol/L BUN (7-17) mg/dL Creatinine (0.52-1.04) mg/dL Estimated GFR (>60) mL/min BUN/Creatinine Ratio (6-22) Glucose (80-110) mg/dL Lactate (0.7-2.1) mmol/L Calcium (8.4-10.2) mg/dL Total Bilirubin (0.2-1.3) mg/dL AST (14-36) IU/L ALT (<35) IU/L Alkaline Phosphatase (38-126) U/L Total Protein (6.3-8.2) g/dL Albumin (3.5-5.0) g/dL Globulin (1.7-4.1) g/dL Albumin/Globulin Ratio (1.0-2.8) Lipase (23-300) U/L Urine Color Yellow Urine Appearance Sl cloudy Urine pH 5.0 (4.5-8.0) Ur Specific [place] 1.020 (1.000-1.035) Urine Protein 2+ H (Negative) Urine Glucose (UA) Trace H (Negative) g/dL Urine Ketones Trace H (NEGATIVE) Urine Occult Blood Trace-lysed (Negative) Urine Nitrate Negative (Negative) Urine Bilirubin 1+ H (NEGATIVE) Ur Bilirubin Confirm Negative (Negative) Urine Urobilinogen 0.2 (0.2) E.U./dL Ur Leukocyte Esterase 2+ H (NEGATIVE) Urine RBC 0-1/hpf (0-5/HPF) Urine WBC 30-100/hpf H (0-5/HPF) Ur Squamous Epith Cells 1-5 /hpf (0-5/HPF) Ur Transition Epith Cell 1-5/hpf (0-5/HPF) Urine Bacteria Few (2-10) H (None) Hyaline Casts 0-1/lpf (None) Granular Casts 1-5/lpf (None) Ur Culture Indicated? Specimen cultured SARS-CoV-2 (PCR) Negative (Negative) Imaging Data CT scan - abdomen/pelvis: Radiologist's Impression: Launch?[place] [address] CT Scan Report Signed Patient: Nani Morton MR#: [id number] : 1945 Acct:[id number] Age/Sex: 75 / F Date of Service: 05/11/21 Loc: Accession Number: [id number] ?? Procedure: CT abdomen pelvis w con Ordering Provider: Salazar Peña D.O. PROCEDURE:? CT ABDOMEN PELVIS W CON ? INDICATIONS:? fever, worsening lower pain, recent colonoscopy ? TECHNIQUE:? After the administration of intravenous contrast, axial sections acquired from the lung bases to the pubic symphysis.? Coronal and sagittal reformats were performed.? For radiation dose reduction, the following was used:? automated exposure control, adjustment of mA and/or kV according to patient size.? ? COMPARISON:[facility], CT, CT ABDOMEN PELVIS W CON, 02/02/2021, 13:55. ? FINDINGS:? Image quality:? Excellent.? ? Lung bases:? Lung bases are clear. Heart:? No significant findings. ? ABDOMEN: Liver: There is diffuse hypoattenuation of the liver parenchyma relative to the spleen compatible with hepatic steatosis. Gallbladder:? Status post cholecystectomy with persistent prominence of the common bile duct. Biliary ducts:? Unremarkable.? ? Pancreas: Homogeneous enhancement without focal lesions or pancreatic ductal dilatation.? No peripancreatic inflammation or organized fluid collections. Spleen:? Unremarkable.? ? Adrenal Glands:? Unremarkable.? ? Kidneys and Ureters: Kidneys are symmetric in size and enhancement, and there is no obstructive uropathy.? No perinephric inflammatory changes. Ureters are normal in course and caliber.? Stable appearance of inferior left renal hypodensity likely representing a cyst. Stomach and Bowel:? Stomach, small bowel, and colon appear unremarkable.? No acute inflammatory changes.? Normal appendix.? No evidence for obstruction. Peritoneum:? No abnormal intraperitoneal fluid.? No free air.? Ventral Wall:? Small fat containing umbilical hernia.? No acute inflammation. Abdominal Nodes:? No retroperitoneal or mesenteric adenopathy by size criteria.? Vessels: Scattered atherosclerotic calcifications of the abdominal aorta and iliac vessels without aneurysmal dilatation.? The inferior vena cava appears patent. ? PELVIS: Pelvic Organs:? Reproductive organs are unremarkable as imaged. Bladder:? Unremarkable.? ? Pelvic Nodes: No enlarged lymph nodes.? Miscellaneous: No hernias are seen. ? ? ? Bones: No acute vertebral body compression fractures. Multilevel spondylitic changes throughout the imaged spine.? No suspicious osseous lesions. ? IMPRESSION:? ? 1. CT abdomen and pelvis without acute abnormalities.? Previously noted acute diverticulitis has resolved.? No evidence for acute inflammatory changes in the visualized bowel.? No free air or free fluid seen. ? 2. Mild hepatic steatosis. ? 3. Status post cholecystectomy.? With persistent prominence of the common bile duct. ? 4. Small fat containing umbilical hernia without acute inflammation. ? 5. Atherosclerotic vascular disease.? ? ? Dictated by: Mehul Joseph M.D. on 05/11/2021 at 14:29 ? ? Approved by: Mehul Joseph M.D. on 05/11/2021 at 14:37 ? MDM Narrative Medical decision making narrative: Multiple etiologies for patient's symptoms considered including: [bowel perforation vs. abscess vs. SBO vs. kidney stone vs. other] Patient's symptoms improved over duration of stay with above-stated therapies. Findings and discharge diagnosis discussed with patient/family followed by verbalization of understanding Return precautions discussed with patient/family whom verbalize understanding. Discharge Plan Departure Patient Disposition: Home Clinical Impression: Abdominal pain, acute, right lower quadrant, Acute UTI Instructions: Acute Abdominal Pain, DI for Urinary Tract Infection (UTI) Activity Restrictions/Additional Instructions: *You have been diagnosed with [acute right lower quadrant pain and urinary tract infection. Your history, physical exam, labs and CT scan are very reassuring. There is no evidence of bowel perforation, abscess, bowel obstruction or other surgical emergency. *What to do: *Please continue to take your regular medications as directed. [x ] New medication prescriptions sent to your pharmacy: [[facility] ] [ ] New medication written as a paper prescription [ ] No new medications given *Please follow up with your primary care provider in 2-3 days, call for an appointment. Let them know you were seen in the Emergency Department and that we ask that you be seen in follow up. We will electronically transmit a record of today's note if your PCP is in our system *If you do not have a primary care provider please contact the [facility] Resource line at [phone]. They will ask some questions about your medical history and help get you set up with a doctor in the community. *Return to Emergency Department if you should have any new, worsening or concerning symptoms, such as [fever greater than 101 F, shaking chills, worsening pain, persistent vomiting or other bothersome symptoms] You have been prescribed a short course of narcotic medications. These are pot entially dangerous and addictive medications that should be used carefully. While on these medications you cannot drive or operate heavy machinery. Additionally, you cannot sign legal documents or perform any duties such as this. 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 Please understand that we cannot provide further refills of narcotics or controlled substances through the ED and your pain management will need to be through your Primary Care Provider Prescriptions: New cefpodoxime 200 mg tablet 200 mg PO BID 10 Days Qty: 20 0RF Rx Instructions: must administer with a meal/food hydrocodone-acetaminophen 5-325 mg tablet 1 tab PO Q4-6H PRN (Reason: pain) Qty: 10 0RF ondansetron 4 mg tablet,disintegrating 4 mg PO TID-QID PRN (Reason: nausea and vomiting) Qty: 10 0RF No Action (DME) insulin syringe-needle U-100 [Advocate Syringes] 0.5 mL 31 gauge x 5/16 syringe See Rx Instructions .ROUTE .MEDSUPPLY Qty: 100 3RF Rx Instructions: As directed lancets [Accu-Chek Softclix Lancets] Misc See Rx Instructions .ROUTE .COMPLEX Qty: 300 3RF Dose Instruction: USE DIRECTED Rx Instructions: USE DIRECTED Lantus U-100 Insulin 100 unit/mL solution 40 unit SUBCUT DAILY Qty: 30 3RF (DME) Accu-Chek Guide test strips Strip See Rx Instructions .ROUTE .COMPLEX Qty: 100 9RF Dose Instruction: USE DIRECTED Rx Instructions: USE DIRECTED glipizide 2.5 mg tablet extended release 24 hr 2.5 mg PO DAILY Qty: 90 3RF omeprazole 20 mg capsule,delayed release(DR/EC) 20 mg PO DAILY Qty: 90 3RF Accu-Chek Advantage Meter 0 dev topical TID Qty: 0 0RF epinephrine 0.3 mg/0.3 mL auto-injector 0.3 ml IM Q5-15M PRN (Reason: anaphylaxis) Qty: 2 0RF Rx Instructions: do not exceed 3 doses per episode diphenhydramine HCl [Benadryl Allergy] 25 mg tablet 25 mg PO .COMPLEX PRN (Reason: Allergies) 0RF Rx Instructions: Take 2 tabs (50mg) PO 1 hour prior to exam metformin 500 mg tablet 500 mg PO DAILY 0RF atorvastatin 20 mg tablet 20 mg PO DAILY 0RF Referrals: Jovan Nichols MD [Primary Care Provider] -
[2021-05-11] MEDS: SODIUM CHLORIDE 0.9% 1,000 ML 1000 ML IV (13:23)
--- NOTE | 2021-05-11 13:23 | DI.CT.S_ITS ---
PROCEDURE: CT ABDOMEN PELVIS W CON INDICATIONS: fever, worsening lower pain, recent colonoscopy TECHNIQUE: After the administration of intravenous contrast, axial sections acquired from the lung bases to the pubic symphysis. Coronal and sagittal reformats were performed. For radiation dose reduction, the following was used: automated exposure control, adjustment of mA and/or kV according to patient size. COMPARISON: [facility] [place], CT, CT ABDOMEN PELVIS W CON, 02/02/2021, 13:55. FINDINGS: Image quality: Excellent. Lung bases: Lung bases are clear. Heart: No significant findings. ABDOMEN: Liver: There is diffuse hypoattenuation of the liver parenchyma relative to the spleen compatible with hepatic steatosis. Gallbladder: Status post cholecystectomy with persistent prominence of the common bile duct. Biliary ducts: Unremarkable. Pancreas: Homogeneous enhancement without focal lesions or pancreatic ductal dilatation. No peripancreatic inflammation or organized fluid collections. Spleen: Unremarkable. Adrenal Glands: Unremarkable. Kidneys and Ureters: Kidneys are symmetric in size and enhancement, and there is no obstructive uropathy. No perinephric inflammatory changes. Ureters are normal in course and caliber. Stable appearance of inferior left renal hypodensity likely representing a cyst. Stomach and Bowel: Stomach, small bowel, and colon appear unremarkable. No acute inflammatory changes. Normal appendix. No evidence for obstruction. Peritoneum: No abnormal intraperitoneal fluid. No free air. Ventral Wall: Small fat containing umbilical hernia. No acute inflammation. Abdominal Nodes: No retroperitoneal or mesenteric adenopathy by size criteria. Vessels: Scattered atherosclerotic calcifications of the abdominal aorta and iliac vessels without aneurysmal dilatation. The inferior vena cava appears patent. PELVIS: Pelvic Organs: Reproductive organs are unremarkable as imaged. Bladder: Unremarkable. Pelvic Nodes: No enlarged lymph nodes. Miscellaneous: No hernias are seen. Bones: No acute vertebral body compression fractures. Multilevel spondylitic changes throughout the imaged spine. No suspicious osseous lesions. IMPRESSION: 1. CT abdomen and pelvis without acute abnormalities. Previously noted acute diverticulitis has resolved. No evidence for acute inflammatory changes in the visualized bowel. No free air or free fluid seen. 2. Mild hepatic steatosis. 3. Status post cholecystectomy. With persistent prominence of the common bile duct. 4. Small fat containing umbilical hernia without acute inflammation. 5. Atherosclerotic vascular disease. Dictated by: Mehul Joseph M.D. on 05/11/2021 at 14:29 Approved by: Mehul Joseph M.D. on 05/11/2021 at 14:37
[2021-05-11] MEDS: ONDANSETRON 4 MG/2 ML INJ IV (13:25)
[2021-05-11] MEDS: HYDROMORPHONE 0.5 MG INJ IV (13:25)
[2021-05-11 13:39] LABS: Add Manual Diff / Slide Review NO; Basophils Absolute Auto 0 /uL (0-100); Basophils Percent Auto 0.9 % (0-2); Eosinophils Absolute Auto 100 /uL (0-450); Hemoglobin 10.5 g/dL (12.0-16.0); Lymphocytes Absolute Auto 500 /uL (1100-4500); Lymphocytes Percent Auto 9.8 % (25-40); Mean Corpuscular HGB Conc 31.9 % (30-36); Mean Corpuscular Hemoglobin 24.8 PG (26-34); Mean Corpuscular Volume 77.6 fL (80-100); Monocytes Absolute Auto 600 /uL (0-900); Monocytes Percent Auto 12.2 % (3-14); Neutrophils Absolute Auto 3600 /uL (1500-7000); Neutrophils Percent Auto 75.1 % (50-75); Platelet Count 191 X10^3/uL (150-400); Red Blood Cell Count 4.26 X10^6/uL (4.0-5.2); Red Cell Distribution Width 15.3 % (11.6-14.8); White Blood Cell Count 4.7 X10^3/uL (4.5-11.0)
[2021-05-11 13:50] LABS: Appearance Urine UA SL CLOUDY; Bilirubin Urine UA 1+ (NEGATIVE); Color Urine UA YELLOW; Glucose Urine UA TRACE g/dL (Negative); Ketones Urine UA TRACE (NEGATIVE); Leukocyte Esterase Urine UA 2+ (NEGATIVE); Nitrite Urine UA NEGATIVE (Negative); Occult Blood Urine UA TRACE-LYSED (Negative); Protein Urine UA 2+ (Negative); Urobilinogen Urine UA 0.2 E.U./dL (0.2)
[2021-05-11] MEDS: diphenhydrAMINE 50 MG/ML VIAL 25 MG IV (13:53)
[2021-05-11] MEDS: methylPREDNISolone 125 MG/2 ML VIAL IV (13:53)
[2021-05-11 13:57] LABS: COVID19 -Nasal RAPID Negative (Negative)
[2021-05-11 14:03] LABS: Alanine Aminotransferase 89 IU/L (<35); Albumin 4.2 g/dL (3.5-5.0); Albumin Globulin Ratio 1.2 (1.0-2.8); Alkaline Phosphatase 102 U/L (38-126); Aspartate Aminotransferase 104 IU/L (14-36); BUN Creatinine Ratio 15.8 (6-22); Bilirubin Total 0.7 mg/dL (0.2-1.3); Blood Urea Nitrogen 23 mg/dL (7-17); Calcium 9.1 mg/dL (8.4-10.2); Carbon Dioxide 27 mmol/L (22-32); Chloride 104 mmol/L (98-107); Globulin 3.5 g/dL (1.7-4.1); Glucose 154 mg/dL (80-110); HEMOLYSIS < 15 (0-50); Lipase 119 U/L (23-300); Sodium 139 mmol/L (137-145); Total Protein 7.7 g/dL (6.3-8.2)
[2021-05-11 14:09] LABS: Ictotest Urine Negative (Negative); RBC Urine 0-1/HPF (0-5/HPF); Squamous Epithelial Cell Urine 1-5 /HPF (0-5/HPF); Transitional Epi Cells Urine 1-5/HPF (0-5/HPF); WBC Urine 30-100/HPF (0-5/HPF)
[2021-05-11 14:10] LABS: Bacteria Urine Few (2-10); Culture Indicated Urine Specimen Cultured; Granular Casts Urine 1-5/LPF; Hyaline Casts Urine 0-1/LPF
== END 2021-05-11 15:12 | disposition home or self-care (01) ==
PROVIDERS: Emergency Provider Emergency Medicine; Family Provider Family Medicine; PCP Family Medicine
DX: N39.0 Urinary tract infection, site not specified (principal); R10.31 Right lower quadrant pain; Z20.822 Contact with and (suspected) exposure to COVID-19
CPT/HCPCS: 36415; 74177; 80053; 81001; 83605; 83690; 85025; 87040; 87086; 87635; 96361; 96374; 96375; 99284; C9803; J1170; J1200; J2405; J2930; Q9967

== ENCOUNTER → 2021-05-17 14:00 | Outpatient (CLI) | payer MEDICARE, SELFPAY ==
[2019-01-03 13:15] VITALS: BMI 34.9
[2019-01-05 10:35] VITALS: PULSE 57; RESP 16; O2SAT 93
--- NOTE | 2021-05-18 14:41 | DIAB.MNTFU ---
Follow-up Diabetes Medical Nutrition Therapy Assessment Name: Nani Morton (DORA) Date: 05/17/21 Time: 205-255p Dx: Type II Diabetes c CKD 3 DORA presents for follow-up regarding T2DM c CKD. States she was recently in the ED for what they thought could be a bowel perforation, but it was a UTI. Last RD/CDCES visit she did c/o frequent urination. This has resolved since the UTI was treated. States she has questions about balancing a DM diet with diverticulosis, which was recently dx. Endorses d/c ibuprofen and Tylenol due to impact on kidneys and liver respectively. Continues eating two meals per day and recently added one balanced HS snack. Has been taking meds as rx?d after last visit. States this helped BG greatly prior to visit at the ED. Endorses IV steroids during ED visit which caused hyperglycemia in the 300-400s. Tried increasing Lantus by 5u, did not impact readings. BG have improved since but still not down to usual numbers Per diet recall meals are within nutrition rx. Diet Recall: B: Bagel with cram cheese and turkey D: corn tortilla with roast x 2-3 with guac and salsa Snack: PB pretzels (quit eating popcorn due to salt) Anthropometrics: Ht: 5' Wt: 169.4# (05/11/21) Weight history:178# (11/18/20) Physical Activity: Has completed PT. Pain reportedly well managed. Did not discuss plan for activity today. Will discuss next visit. Self-Monitoring Blood Glucose: Prior to steroid tx, reports FBG of 90-120mg/dL and HS 160-180 mg/dL (in range). States BG started to come down yesterday, but still seeing reminisce of elevations from steroids. HS last night was 230 (H) and this morning was 130 (in range but above her usual). Diabetes Medications: Metformin rx'd 500 mg BID Glipizide XR 2.5 mg in morning prior to meal Glargine 20-25u HS Pertinent Labs: 12/30/20 HgA1c 8.4% H GFR 40 L Cr: 1.3 H K: 4.4 Past Medical History: (Last Reviewed 05/11/21 @ 13:06 by Salazar Peña DO) Abnormal Pap smear of cervix CIS Anemia in chronic kidney disease Angioedema Chronic low back pain with sciatica Crohn's disease Diabetes mellitus Duodenal ulcer GERD (gastroesophageal reflux disease) History of left oophorectomy Postmenopausal bleeding/abnormality Hyperlipidemia Nutrition Rx: Plate Method low Na Nutrition Diagnosis: Nutrition and food related knowledge deficit r/t needing additional info on managing diverticulosis and DM diet aeb pt report Intervention: This participant was very receptive. Provided appropriate educational handouts. Discussed the following topics: Blood sugar trends. Impact of steroids on BG. Potential plan to increase insulin if ever taking steroids again, to discuss with providers Protein options for snacks Diverticulitis vs diverticulosis mnt and handouts Medication regimen and plan hydration reccs SMBG goals Created SMART goals for patient self-care and success. Previous Goals: If FBG <80, reduce Lantus by 2-3 units - met Take Metformin BID 12 hours a part - met Take Glipizide at the same time each day if possible- met Try drinking water earlier in the day, but do not reduce water <64oz unless told otherwise by nephrology- d/c Call nephrology about freq urination- d/c Take glipizide in the morning with breakfast- met New Goals: Add protein to HS snacks Cont current med regimen to see if BG come down Aim for high fiber diet unless having s/s of diverticulitis, then switch to low fiber until s/s resolve. Follow-up: LEW DODD follow-up in 2 months. Overall, DORA is doing well with managing her DM. Hoping her BG will return to normal after steroids wear off. Encouraged her to call my office if she has any questions, concerns, or additional follow-up needs. She agreed. Plans to see PCP in 1-2 months for new HgA1c and DM f/u, and would like to see MASOOD/YOUSIF again after new labs. Cherelle Bonilla RDN, YOUSIF Certified Diabetes Care and Mower Sharpener P: [phone] Thank you for this referral
== END ==
PROVIDERS: Family Provider Family Medicine; PCP Family Medicine; Referring Provider Family Medicine; Visit Provider Family Medicine
DX: E11.22 Type 2 diabetes mellitus with diabetic chronic kidney disease (principal); N18.30 Chronic kidney disease, stage 3 unspecified; Z79.84 Long term (current) use of oral hypoglycemic drugs; Z79.4 Long term (current) use of insulin; Z71.3 Dietary counseling and surveillance
CPT/HCPCS: 97803

== ENCOUNTER → 2021-07-20 13:47 | Outpatient (CLI) | payer MEDICARE, SELFPAY ==
[2019-01-03 13:15] VITALS: BMI 34.9
[2019-01-05 10:35] VITALS: PULSE 57; RESP 16; O2SAT 93
[2021-07-20 15:28] LABS: COVID19 -Nasal RAPID Negative (Negative)
== END ==
PROVIDERS: Family Provider Family Medicine; PCP Family Medicine; Visit Provider Obstetrics & Gynecology
DX: Z01.812 Encounter for preprocedural laboratory examination (principal); Z20.822 Contact with and (suspected) exposure to COVID-19
CPT/HCPCS: 87635

== ENCOUNTER 2021-07-21 12:29 | Day surgery (SDC) | payer MEDICARE, SELFPAY ==
[2019-01-03 13:15] VITALS: BMI 34.9
[2019-01-05 10:35] VITALS: PULSE 57; RESP 16; O2SAT 93
[2021-07-19 09:36] VITALS: BMI 35.5
[2021-07-21] VITALS (15 sets, daily range): BP systolic 134–159; BP diastolic 48–80; PULSE 57–81; RESP 11–18; TEMP 36.8–37.1; O2SAT 95–99; BMI 35.5
--- NOTE | 2021-07-21 | PATH_ITS ---
[facility] Accession Number: [id number] . 01 Material submitted: . uterus - UTERUS, RIGHT FALLOPIAN TUBE AND OVARY . 02 Diagnosis: Uterus, Right Fallopian Tube and Ovary, Total Laparoscopic Hysterectomy and Right Salpingo-oophorectomy (Weight 37 grams): Portions of basalis endometrium with features of cystic atrophy; negative for glandular hyperplasia, cytologic atypia, or malignancy. Cervix and endocervix with no significant histomorphologic abnormality. Myometrium involved by intramural and submucosal leiomyomas (5-28 mm in greatest dimension), negative for atypia or malignancy. Uterine serosa with no significant histomorphologic abnormality. Right fallopian tube, complete cross sections; negative for epthelial atypia or malignancy. Right ovary with benign inclusion cysts, endosalpingosis, and stromal hyperplasia. [facility] 07/25/2021 1612 Local . 02 Electronically signed: . Bhavana Henning MD, Pathologist NPI- [id number] . 01 Gross description: . Received in one part. . Received in formalin, labeled Nani Morton and designated 1. Uterus, right tube and ovary, is a uterus with attached cervix and attached right adnexa. The uterus and cervix are 37 g, 4.0 cm cornu to cornu, 6.0 cm fundus to cervix, and 2.5 cm anterior to posterior. The cervix is 2.5 cm long x 2.5 cm in diameter with a johnson, wrinkled, focally hemorrhagic ectocervical mucosa, a 1.1 cm slit-like os, and unremarkable endocervical canal. There is a 2.5 x 2.0 x 1.5 cm nodule in the anterior lower uterine segment. The serosa is otherwise johnson and nodular with mild focal scattered adhesions. The endometrium is johnson, uniform, and focally adenomatous, up to 0.3 cm thick. The myometrium is johnson and smooth, up to 1.1 cm thick with three 0.5-2.8 cm intramural and submucosal nodules (including lower uterine segment nodule), with a johnson-white, whorled, nodular cut surface with no hemorrhage, necrosis, or calcifications identified. The right fallopian tube is 4.2 cm long by 0.4 cm in diameter with a johnson outer surface and attached closed, fused fimbria. The right ovary is 1.8 x 1.1 x 1.1 cm, with a smooth, yellow-johnson outer surface which is sectioned to reveal a uniform johnson cut surface with no discrete masses or lesions identified. Social Insurance Specialist sections are submitted as follows: A1: Social Insurance Specialist cervix (anterior inked). A2: Social Insurance Specialist anterior endomyometrium. A3: Social Insurance Specialist posterior endomyometrium. A4: Social Insurance Specialist nodules. A5: Social Insurance Specialist right adnexa including entire fimbria. (CHELSEA:[id number]) /FRR 07/23/2021 [facility]0 Local . 02 Pathologist provided ICD-10: N89.8, R10.2, N81.6 . 02 CPT . 407636 Specimen Comment: A courtesy copy of this report has been sent to [phone] Performed at: 01 [facility] [address] [address], [place], [place] [id number] MD Girish Heller MD Phone: [phone] Performed at: 02 [facility] [address] [place], [place] [id number] MD Maria Alejandra Villalobos MD Phone: [phone]
[2021-07-21] MEDS: LACTATED RINGERS 1,000 ML 42 ML IV (13:08)
--- NOTE | 2021-07-21 13:34 | SUR.OPER ---
Lithotomy on padded OR bed. [place] Pad Positioner under torso. Head on pillow, arms padded and tucked at sides. Legs secured in padded yellow fins stirrups.
--- NOTE | 2021-07-21 13:35 | PM.PREOP ---
Pre-operative Note COVID-19 COVID-19 status: Negative Result date/Date tested (Pos, Neg/Pending): 07/21/21 Criteria for continued procedure: Non-surgical alternatives not available or appropriate per current SOC Interval Note History & Physical reviewed/Exam performed by Physician: Yes Changes to H&P: No
[2021-07-21] MEDS: CEFAZOLIN 2 GM/20 ML SYRINGE IV (14:21)
[2021-07-21] MEDS: BUPIVACAINE 0.5% (PF) 30 ML, EPINEPHrine 0.15 MG INJ (14:36)
[2021-07-21] MEDS: ROPIVACAINE 0.2% PF 2 MG/ML 10ML AMP 20 ML INJ (14:37)
[2021-07-21] MEDS: ACETAMINOPHEN IV 1,000 MG/100 ML VIAL 400 MG IV (14:45)
--- NOTE | 2021-07-21 17:08 | PM.GYNOP.1 ---
Operative Date/Time/Diagnoses Date of procedure: 07/21/21 Time of procedure: 14:20 Pre-op diagnosis: Enterocele Post-op diagnosis: same Procedure & Clinicians Procedure: Procedures Operation Date: 07/21/21 13:30 Actual Procedure Side Surgeon p Laparoscopic Total Hysterectomy, right salpingo oophorectomy, Rafal Jaquez MD s enterocele repair Rafal Jaquez MD Indications: DORA is a 75 yo A2 LMP at age 54 who presented in early February 2021 with a 3 day history of pelvic pain and vaginal bulging. She's had two 's with her largest 7# 6 oz. She experienced menopause @ age 54 with no PMB or HRT since then. 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 She was well until about two weeks ago when she was seen in the ED for lower abdominal pain and fever and was diagnosed with diverticulitis based on clinical findings and CT, she was started on Augmentin TID and was subsequently evaluated by gastroenterology.? She first noticed vaginal bulging a few days before her initial visit and it's been associated with a feeling that her pelvic bone is hurting. She also experienced light vaginal spotting in February and along with occasional nocturia x 3. Her most recent pelvic imaging (CT) on 02/02/2021 shows no pelvic abnormality and no fluid in the cul-de-sac.? Examination in February and subsequently in May 2021 showed the presence of a vaginal enterocele dissecting downward in the rectovaginal septum to within 3-4 cm of the hymeneal ring.? Also found at the time was a hyperemic tissue within the vagina which biopsy showed to be granulation tissue.? Attempts at placement of a pessary to mitigate the enterocele symptoms was impossible due to the discomfort from the granulation tissue in the vagina.? After discussing all options, patient wishes to have thick granulation tissue removed and also have the enterocele surgically corrected rather than using a pessary which she cannot tolerate.? Accordingly, she is currently scheduled to have excision of vaginal tissue/lesion, total laparoscopic hysterectomy with bilateral salpingectomy and unilateral oophorectomy, laparoscopic enterocele repair, and possible posterior colporrhaphy.? Her surgery is scheduled for July 21, 2021 she presents today for her scheduled surgery. Surgeon: Rafal Jaquez Assistant County Attorney: Katt Gomez Anesthesia Type: General Operative Notes Findings: Deep enterocele extending down to within 3 cm of the hymeneal ring. Left tube and ovary are surgically absent. Right tube and ovary are normal. Uterus is small with multiple small fibroids. Erythema of the posterior vaginal mucosa at leading edge of enterocele due to downward pressure from the enterocele. Closure Type: primary Specimen(s): right tube & ovary and uterus Applied: catheter Estimated blood loss (mL): 50 Blood products transfused: none Procedure in detail: With the patient under satisfactory general anesthesia in the modified dorsal lithotomy position, the perineum, vagina, and abdomen were prepped and draped in the usual manner for total laparoscopic hysterectomy. A pre-surgical safety time-out was then taken in accordance with [facility] Main OR protocols. Examination under anesthesia was then performed with speculum and bimanual examination confirming the presence of an enterocele extending deep down into the rectovaginal septum to within 3 cm of the hymeneal ring. The vaginal mucosa was inflamed at the site of maximal pressure on the posterior vaginal wall from the enterocele and it was at this site the granulation tissue had formed previously. No over granulation tissue was seen at the time of exam under anesthesia. Speculum was inserted in the vagina and the anterior lip of the cervix was then grasped with a single-tooth tenaculum. The endocervical canal was dilated so as to be able to admit a VCare uterine manipulator with a small cup. Once the VCare was properly placed, the speculum and tenaculum were removed from the vagina and attention turned to laparoscopy. The umbilicus was infiltrated with 0.5% Marcaine with epinephrine and a 5 mm incision is made in the inferior edge of the umbilicus. A Veress needle was then used to insufflate the abdomen with carbon dioxide and 5 mm bladeless trocar and sleeve were placed through the incision. Confirmation of placement into the abdominal cavity was made with laparoscopic visualization and a 2nd and 3rd 5 mm laparoscopic port was placed in both the left and right mid quadrants using a similar technique. Using a 3 puncture technique the pelvis and abdomen were visualized with the findings as noted above. Adhesions involving the left lateral aspect of the uterus were taken down with a PK device using bipolar current were necessary and sharp/blunt dissection as appropriate. Once the lateral aspect of the uterus was free of adhesions, the PK device was used to coagulate and divide the round ligament on the left in that dissection was carried downward lateral to the uterus to the level of the colpotomy cup and the bladder flap was initiated starting on the left side. The bladder was advanced downward and wants vessels were secured on the left, attention was turned to the right adnexa. The distal tube was elevated and the infundibulopelvic ligament was coagulated and divided with the PK device. That dissection was then carried out with the PK device across the mesosalpinx, across the round ligament, and down the lateral aspect of the uterus on the right-hand side to the level of the colpotomy cup. The bladder flap was completed and the bladder advanced downward. Monopolar hook cautery was used to perform circumferential colpotomy and the uterus was from the upper part of the vagina. The uterus was then delivered vaginally and the vaginal cuff closed with 0 Vicryl [id number]. Attention was then returned to the abdominal cavity and the abdomen reinsufflated. A 4th puncture site was then made deep in the right lower quadrant through which a 5 mm trocar and sleeve were placed. Using a Halban technique a series of four laparoscopic stitches using 0 Ethibond placed longitudinally through the vaginal apex, the posterior cul-de-sac peritoneum and the serosa of the rectosigmoid so as to completely close off the posterior cul-de-sac. Lateral stitches incorporated the distal aspect of the uterosacral ligaments and at the completion of that procedure, the cul-de-sac was completely obliterated and the vault well suspended. Re-examination of the vagina showed that the enterocele was no longer present and distension of the posterior vaginal mucosa was minimal after reduction of the enterocele. As result the decision was made at that point not to perform a posterior colporrhaphy but instead attention was turned to closure the abdominal incisions after visualization of the pelvis confirmed that there was no evidence of any bleeding and both ureters were seen to be freely peristalsing well away from the site of hysterectomy and cul-de-sac obliteration. The laparoscopic port incisions were then closed with 4-0 Monocryl using inverted interrupted stitches, skin glue was applied, and appropriate dressings were applied all 4 sites. That point the patient was awakened from anesthesia and transferred to the PACU for a period of observation and recovery having tolerated the procedure well. Complications: none Post-operative Condition: stable Disposition: PACU Plan for aftercare: Routine postoperative care.
[2021-07-21] MEDS: OXYCODONE IR 5 MG TABLET PO ×2 (17:09→17:37)
[2021-07-21] MEDS: HYDROMORPHONE 2 MG INJ IV ×5 (17:09→17:50)
[2021-07-21] MEDS: ONDANSETRON 4 MG/2 ML INJ IV (17:27)
--- NOTE | 2021-07-21 18:16 | SUR.PHASEI ---
Report called to Lina SINHA. Pt going to room 205. Pt updated on plan of care and is agreeable. Pt tolerating ice, water, and applesauce with no c/o nausea noted.
--- NOTE | 2021-07-21 19:16 | PC.NURSE ---
Pt arrived from PACU @ 1835 Very sleepy and not wanting to answer questions. SpO2 96% RA 4 lap site dsg across lower abdomen Denies discomfort at this time. IVF LR @ 100cc/hr infusing into RWrist area via pump w/o incidence. Choi cath patent clear yellow urine Call light w/in reach, bed alarm on for pt safety. Continue w/plan of care.
[2021-07-21] MEDS: MORPHINE 2 MG/ML INJ IV (20:58)
[2021-07-21] MEDS: METFORMIN HCL 500 MG TABLET PO (20:58)
[2021-07-21] MEDS: DOCUSATE 100 MG CAPSULE 200 MG PO (20:59)
[2021-07-22] VITALS (7 sets, daily range): BP systolic 115–153; BP diastolic 54–65; PULSE 66–75; RESP 14–18; TEMP 36.6–36.8; O2SAT 94–98
[2021-07-22] MEDS: OXYCODONE IR 5 MG TABLET PO ×3 (02:05→08:50)
[2021-07-22] MEDS: PANTOPRAZOLE DR 20 MG TABLET PO (05:14)
[2021-07-22] MEDS: LACTATED RINGERS 1,000 ML 100 ML IV (05:16)
--- NOTE | 2021-07-22 05:43 | PC.NURSE ---
C/O nausea earlier this shift, but resolved after she ate saltine crackers. C/O body & eyes being heavy repositioned her up higher in bed & turned her to right side. Reported it helped, warm compressed applied to her eyes. Medicated with 5 mg. of Percolone, will continue plan of care & monitor.
[2021-07-22 06:11] LABS: Add Manual Diff / Slide Review NO; Basophils Absolute Auto 0 /uL (0-100); Basophils Percent Auto 0.5 % (0-2); Eosinophils Absolute Auto 0 /uL (0-450); Eosinophils Percent Auto 0.5 % (2-4); Hematocrit 29.3 % (36-46); Hemoglobin 9.6 g/dL (12.0-16.0); Lymphocytes Absolute Auto 1300 /uL (1100-4500); Lymphocytes Percent Auto 16.7 % (25-40); Mean Corpuscular HGB Conc 32.8 % (30-36); Mean Corpuscular Hemoglobin 25.4 PG (26-34); Mean Corpuscular Volume 77.5 fL (80-100); Monocytes Absolute Auto 600 /uL (0-900); Monocytes Percent Auto 7.6 % (3-14); Neutrophils Absolute Auto 5800 /uL (1500-7000); Neutrophils Percent Auto 74.7 % (50-75); Platelet Count 183 X10^3/uL (150-400); Red Blood Cell Count 3.78 X10^6/uL (4.0-5.2); Red Cell Distribution Width 15.9 % (11.6-14.8); White Blood Cell Count 7.7 X10^3/uL (4.5-11.0)
[2021-07-22 06:22] LABS: BUN Creatinine Ratio 14.2 (6-22); Blood Urea Nitrogen 18 mg/dL (7-17); Calcium 8.2 mg/dL (8.4-10.2); Carbon Dioxide 26 mmol/L (22-32); Chloride 105 mmol/L (98-107); Glucose 132 mg/dL (80-110); HEMOLYSIS < 15 (0-50); Potassium 4.2 mmol/L (3.4-5.1); Sodium 137 mmol/L (137-145)
[2021-07-22] MEDS: ACETAMINOPHEN 325 MG TABLET 650 MG PO (08:21)
[2021-07-22] MEDS: DOCUSATE 100 MG CAPSULE 200 MG PO (08:23)
[2021-07-22] MEDS: ATORVASTATIN 20 MG TABLET PO (08:23)
[2021-07-22] MEDS: METFORMIN HCL 500 MG TABLET PO (08:23)
--- NOTE | 2021-07-22 09:56 | PC.NURSE ---
Patient has lap sites to her lower abdomen that are all cdi. Her morales was taken out and she had 400cc of urine in bag. Patient is going to push her light when she has to get up to void and we will scan her for pvr to see how much is left in her bladder after she voids. She has a magen pad that had a moderate amount of blood on it. This has been changed.
== END 2021-07-22 12:30 | disposition home or self-care (01) ==
LOC: OR 12:30 → AC 12:30
PROVIDERS: Family Provider Family Medicine; PCP Family Medicine; Referring Provider Obstetrics & Gynecology; Visit Provider Obstetrics & Gynecology
PROC: 0UT94ZZ Resection of Uterus, Percutaneous Endoscopic Approach (ICD-10-PCS; CPT 58571; principal; 2021-07-21 13:30)
PROC: (CPT 58571; 2021-07-21 13:30)
DX: N83.291 Other ovarian cyst, right side (principal); D25.1 Intramural leiomyoma of uterus; D25.0 Submucous leiomyoma of uterus
CPT/HCPCS: 58571; 80048; 82962; 85025; 94760; J0131; J0171; J0330; J0690; J1170; J2250; J2270; J2405; J2704; J2795; J3010

== ENCOUNTER 2021-07-27 18:40 | Emergency (ER) | payer MEDICARE, SELFPAY ==
[2019-01-05 10:35] VITALS: PULSE 57; RESP 16; O2SAT 93
[2021-07-21 18:23] VITALS: BMI 35.5
[2021-07-27 19:01] VITALS: BP 150/70; PULSE 77; RESP 95; TEMP 36.9; O2SAT 95; BMI 34.2
--- NOTE | 2021-07-27 19:15 | PC.NURSE ---
Pt refusing to stay to see States she lives on [facility] and needs to catch the ferry home.
--- NOTE | 2021-07-28 03:20 | ED.ABDPAIN ---
HPI - Abdominal Pain General Chief Complaint: Abdominal Pain Stated Complaint: post hysterectomy, abd pain, fever Source: patient and family Mode of arrival: Ambulatory Related Data Home Medications Medication Instructions Recorded Confirmed Accu-Chek Advantage Meter 0 dev TOPICAL TID #0 01/03/19 07/19/21 atorvastatin 20 mg tablet 20 mg PO DAILY 05/04/21 07/21/21 Previous Rx's Medication Instructions Recorded epinephrine 0.3 mg/0.3 mL 0.3 ml IM Q5-15M PRN #2 each 11/26/19 injection, auto-injector insulin syringe-needle U-100 0.5 #100 ea 07/05/20 mL 31 gauge x 5/16 ([facility] Syringes) insulin glargine 100 unit/mL 40 unit (0.4 mL) SUBCUT DAILY #30 01/13/21 subcutaneous solution (Lantus ml U-100 Insulin) blood sugar diagnostic (Accu-Chek #100 strip 04/05/21 Guide test strips) glipizide 2.5 mg tablet, extended 2.5 mg PO DAILY #90 tab 05/02/21 release 24 hr omeprazole 20 mg capsule,delayed 20 mg PO DAILY #90 cap 05/02/21 release hydrocodone 5 mg-acetaminophen 325 1 tab PO Q4-6H PRN #10 tab 05/11/21 mg tablet lancets (Accu-Chek Softclix #300 ea 05/16/21 Lancets) estradiol 1 g VAGINAL 3XW #42.5 g 06/02/21 lidocaine 4 % topical gel 1 applic TOPICAL QD-BID 3 Days #10 06/06/21 g metformin 500 mg tablet See Rx Instructions .ROUTE 07/19/21 .COMPLEX #180 tab oxycodone 5 mg tablet 5 mg PO Q6H PRN #10 tab 07/22/21 ibuprofen 600 mg tablet 600 mg PO Q6H PRN #60 tab 07/25/21 oxycodone 5 mg tablet 5 mg PO Q6H PRN #20 tab 07/25/21 Allergies Allergy/AdvReac Type Severity Reaction Status Date / Time lisinopril Allergy Severe Swelling Verified 07/27/21 19:06 of Lip/Tongue/Throat Iodinated Contrast Media Allergy Verified 07/27/21 19:06 Patient History Medical History Abnormal Pap smear of cervix Anemia in chronic kidney disease Angioedema Chronic low back pain with sciatica Crohn's disease Diabetes mellitus Duodenal ulcer GERD (gastroesophageal reflux disease) Hyperlipidemia Surgical History History of left oophorectomy Status post cone biopsy of cervix Status post laparoscopic cholecystectomy Family History Father Diabetes mellitus Social History household members: family and none Smoking Status: Former smoker alcohol intake: current eating out: rarely or never Type(s) of exercise: walking Smoking Status: Former smoker alcohol intake frequency: a few times a week Substance Use Type: marijuana Exam Initial Vital Signs Initial Vital Signs: Vital Signs Temperature 98.5 F 07/27/21 19:01 Pulse Rate 77 07/27/21 19:01 Respiratory Rate 95 H 07/27/21 19:01 Blood Pressure 150/70 H 07/27/21 19:01 Pulse Oximetry 95 07/27/21 19:01 Discharge Plan Departure Patient Disposition: Left Without Being Seen Clinical Impression: Patient left without being seen
== END 2021-07-27 19:16 | disposition left against medical advice (07) ==
PROVIDERS: Emergency Provider Emergency Medicine; Family Provider Family Medicine; PCP Family Medicine
DX: R10.9 Unspecified abdominal pain (principal); R50.9 Fever, unspecified; Z90.710 Acquired absence of both cervix and uterus
CPT/HCPCS: 51798; 99282

== ENCOUNTER → 2021-08-11 15:51 | Outpatient (CLI) | payer MEDICARE, SELFPAY ==
[2019-01-05 10:35] VITALS: PULSE 57; RESP 16; O2SAT 93
[2021-07-21 18:23] VITALS: BMI 35.5
[2021-08-11 17:56] LABS: Add Manual Diff / Slide Review NO; Basophils Absolute Auto 100 /uL (0-100); Basophils Percent Auto 0.9 % (0-2); Eosinophils Absolute Auto 100 /uL (0-450); Eosinophils Percent Auto 1.2 % (2-4); Hematocrit 31.5 % (36-46); Hemoglobin 10.3 g/dL (12.0-16.0); Lymphocytes Absolute Auto 1400 /uL (1100-4500); Lymphocytes Percent Auto 20.2 % (25-40); Mean Corpuscular HGB Conc 32.7 % (30-36); Mean Corpuscular Hemoglobin 25.1 PG (26-34); Mean Corpuscular Volume 76.7 fL (80-100); Monocytes Absolute Auto 400 /uL (0-900); Monocytes Percent Auto 5.6 % (3-14); Neutrophils Absolute Auto 4900 /uL (1500-7000); Neutrophils Percent Auto 72.1 % (50-75); Platelet Count 264 X10^3/uL (150-400); Red Blood Cell Count 4.11 X10^6/uL (4.0-5.2); Red Cell Distribution Width 15.9 % (11.6-14.8); White Blood Cell Count 6.8 X10^3/uL (4.5-11.0)
[2021-08-11 18:08] LABS: Alanine Aminotransferase 12 IU/L (<35); Albumin 4.2 g/dL (3.5-5.0); Albumin Globulin Ratio 1.3 (1.0-2.8); Alkaline Phosphatase 65 U/L (38-126); Aspartate Aminotransferase 22 IU/L (14-36); BUN Creatinine Ratio 18.4 (6-22); Bilirubin Total 0.4 mg/dL (0.2-1.3); Blood Urea Nitrogen 26 mg/dL (7-17); Calcium 8.8 mg/dL (8.4-10.2); Carbon Dioxide 26 mmol/L (22-32); Chloride 107 mmol/L (98-107); Estimated Glomerular Filt Rate 39 mL/min (>60); Globulin 3.2 g/dL (1.7-4.1); Glucose 156 mg/dL (80-110); HEMOLYSIS < 15 (0-50); Potassium 3.6 mmol/L (3.4-5.1); Sodium 141 mmol/L (137-145); Total Protein 7.4 g/dL (6.3-8.2)
[2021-08-11 18:40] LABS: Ferritin 28 ng/mL (11-264)
[2021-08-11 19:14] LABS: HEMOLYSIS < 15 (0-50); Iron 34 ug/dL (37-170)
[2021-08-11 19:28] LABS: Percent Iron Saturation 11 % (15-50); Total Iron Binding Capacity 314 ug/dL (265-497); Transferrin 237 mg/dL (206-381)
== END ==
PROVIDERS: Family Provider Family Medicine; PCP Family Medicine; Referring Provider Family Medicine; Visit Provider Family Medicine
DX: D64.9 Anemia, unspecified (principal); N18.32 Chronic kidney disease, stage 3b; I10 Essential (primary) hypertension; R74.8 Abnormal levels of other serum enzymes
CPT/HCPCS: 36415; 80053; 82728; 83540; 83550; 85025

== ENCOUNTER → 2021-09-02 14:52 | Outpatient (CLI) | payer MEDICARE, SELFPAY ==
[2019-01-05 10:35] VITALS: PULSE 57; RESP 16; O2SAT 93
[2021-07-21 18:23] VITALS: BMI 35.5
[2021-09-02 17:06] LABS: Hematocrit 31.3 % (36-46); Hemoglobin 10.2 g/dL (12.0-16.0)
[2021-09-02 17:26] LABS: BUN Creatinine Ratio 15.3 (6-22); Blood Urea Nitrogen 23 mg/dL (7-17); Calcium 8.5 mg/dL (8.4-10.2); Carbon Dioxide 27 mmol/L (22-32); Chloride 106 mmol/L (98-107); Estimated Glomerular Filt Rate 36 mL/min (>60); Glucose 156 mg/dL (80-110); HEMOLYSIS < 15 (0-50); Potassium 4.1 mmol/L (3.4-5.1); Sodium 139 mmol/L (137-145)
[2021-09-02 18:54] LABS: Creatinine Urine Random 145.7 mg/dL; Protein (Total) Urine Random 11 mg/dL (0-12); Protein Creatinine Ratio Urine 0.07 GRAM/24H
[2021-09-03 07:36] LABS: Parathyroid Hormone Int 76 pg/mL (15-65)
== END ==
PROVIDERS: PCP Family Medicine; Referring Provider Student in an Organized Health Care Education/Training Program; Visit Provider Student in an Organized Health Care Education/Training Program
DX: N05.9 Unspecified nephritic syndrome with unspecified morphologic changes (principal); D64.9 Anemia, unspecified; N25.81 Secondary hyperparathyroidism of renal origin; R80.9 Proteinuria, unspecified
CPT/HCPCS: 36415; 80048; 82570; 83970; 84156; 85014; 85018

== ENCOUNTER → 2021-10-14 15:00 | Outpatient (CLI) | payer MEDICARE, SELFPAY ==
[2019-01-05 10:35] VITALS: PULSE 57; RESP 16; O2SAT 93
[2021-07-21 18:23] VITALS: BMI 35.5
--- NOTE | 2021-10-14 15:01 | DI.ECHO.S_ITS ---
[facility] +---------+ : : [address] : : : : [id number] : : : : Phone: [phone] Echocardiogram Report + + :Name: ALVERTO PEREZ Study Date: 10/14/2021 Height: 60 in : :[facility] ReadingLocation: Weight: 175 lb : : Gender: Female BSA: 1.8 m2 : :: 1945 Age: 76 yrs BP: 154/89 mmHg: :Reason For Study: Systolic murmur : :Ordering Physician: TANVI, : :MORENO Performed By: Keith Bates : :Referring: MORENO TINAJERO : + + Interpretation Summary The ejection fraction is estimated to be 60-65%. There are no focal wall motion abnormalities. Grade II diastolic dysfunction. The right ventricle is normal in size and function. The right ventricular systolic pressure is estimated to be at least 29 mmHg based on an estimated right atrial pressure of 3 mm Hg. The aortic valve mean gradient is 11 mmHg. Procedure: A two-dimensional transthoracic echocardiogram with color flow and Doppler was performed. The study quality was technically adequate. Comparison is made with the echocardiogram of 10/15/2012. The patient was in normal sinus rhythm during the exam. Left Ventricle: The left ventricle is normal in size. There is mild concentric left ventricular hypertrophy. Left ventricular systolic function is normal. The ejection fraction is estimated to be 60-65%. There are no focal wall motion abnormalities. Grade II diastolic dysfunction. Right Ventricle: The right ventricle is normal in size and function. Atria: The left atrium is mildly dilated. Right atrial size is normal. The interatrial septum grossly appears intact with no obvious evidence for an atrial septal defect. Mitral Valve: The mitral valve is normal in structure and function. There is trace mitral regurgitation. Aortic Valve: The aortic valve is mildly calcified. There is mild aortic stenosis. The aortic valve mean gradient is 11 mmHg. There is trace aortic regurgitation. Tricuspid Valve: The tricuspid valve is normal in structure and function. There is a trace or physiologic amount of tricuspid regurgitation. The right ventricular systolic pressure is estimated to be at least 29 mmHg based on an estimated right atrial pressure of 3 mm Hg. Pulmonic Valve: The pulmonic valve is not well visualized. There is trace pulmonic regurgitation. Great Vessels: The aortic root is normal size. The dimensions of the ascending aorta are normal. The IVC is of normal diameter and collapses greater than 50% with a sniff. This suggests a low right atrial pressure of 3 mm Hg. Pericardium/ Pleura There is no pericardial effusion. There is no pleural effusion. MMode/2D Measurements & Calculations LVIDd: 4.8 cm LVOT diam: 2.1 cm LVIDs: 3.2 cm Ao root diam: 3.2 cm FS: 33.3 % asc Aorta Diam: 3.1 cm IVSd: 1.1 cm LVPWd: 1.1 cm LV marti. diameter/BSA (cm/m^2): 2.7 LV sys. diameter/BSA (cm/m^2): 1.8 LA A2 area: 18.6 cm2 RA long axis: 4.6 cm LA A4 area: 21.6 cm2 RA area: 13.4 cm2 LA length (vol): 5.3 cm RA vol: 33.3 ml LA vol: 64.2 ml RA : 18.9 ml/m2 LA vol index: 36.4 ml/m2 TAPSE: 2.0 cm Doppler Measurements & Calculations Ao V2 max: 214.9 cm/sec LVOT Max Salo: 88.7 cm/sec Ao V2 mean: 156.0 cm/sec LV V1 max P.1 mmHg Ao max P.5 mmHg LV V1 VTI: 19.3 cm Ao mean P.7 mmHg LITA(I,D): 1.5 cm2 Ao V2 VTI: 42.6 cm LITA(V,D): 1.4 cm2 sev ratio: 0.45 LITA indexed to BSA (cm^2/m^2): 0.86 MV E max salo: 77.2 cm/sec TR max salo: 252.4 cm/sec MV A max salo: 91.9 cm/sec TR max P.5 mmHg MV E/A: 0.84 Med Peak E' Salo: 4.8 cm/sec E/E' med: 16.1 Lat Peak E' Salo: 6.4 cm/sec E/E' lat: 12.2 E/e' average: 14.1 MV dec time: 0.21 sec [facility] 65.0 ml Reading Physician:WINIFRED
== END ==
PROVIDERS: PCP Family Medicine; Referring Provider Family Medicine; Visit Provider Family Medicine
DX: I35.0 Nonrheumatic aortic (valve) stenosis (principal); R01.1 Cardiac murmur, unspecified
CPT/HCPCS: 93306

== ENCOUNTER → 2021-11-24 15:04 | Outpatient (CLI) | payer MEDICARE, SELFPAY ==
[2019-01-05 10:35] VITALS: PULSE 57; RESP 16; O2SAT 93
[2021-07-21 18:23] VITALS: BMI 35.5
--- NOTE | 2021-11-24 15:06 | DI.MRI.S_ITS ---
PROCEDURE: MR KNEE LT WO CON INDICATIONS: chronic left knee pain TECHNIQUE: Noncontrast sagittal PD fast spin echo and T2 fast spin echo with fat saturation, sagittal 3-D FLASH with fat saturation; coronal T1 spin echo and PD fast spin echo with fat saturation, and axial PD fast spin echo with fat saturation through the knee. COMPARISON: [facility], CR, XR KNEE LT 3V, 02/10/2021, 10:52. FINDINGS: Image quality: Excellent. Menisci: There is medial meniscal extrusion. Complex tear is present in posterior horn and body of the medial meniscus. There is horizontal tear of the posterior horn and body of the lateral meniscus. There is tear of the anterior root of the lateral meniscus. Cruciate ligaments: The anterior and posterior cruciate ligaments appear intact. Medial structures: The medial collateral ligament appears intact. The semimembranosus tendon insertions and meniscocapsular junction appear intact. Visualized portions of the pes anserinus tendons appear normal. No abnormal bursal fluid. Lateral structures: There is partial tear of the deep layer of the lateral collateral ligament. There is high-grade partial tear of the popliteus tendon at its insertion to the lateral femoral condyle. The biceps femoris tendon and iliotibial band are intact. Anterior structures: The quadriceps and patellar tendons appear intact. Patellar alignment is normal. No femoral trochlear dysplasia or ventral trochlear prominence. No edema in the infrapatellar fat pad. Bones and cartilage: No bone marrow contusions or fractures. Tricompartmental cartilage thinning and fibrillation, most pronounced in the medial femorotibial compartment. There is denuded articular surface of the medial femoral condyle and medial tibial plateau with reactive subchondral edema, sclerosis and cyst formation secondary to [id number]. Joint space: There is large knee joint effusion. No Collins's cyst. There is a 0.7 x 1.2 cm cyst in the posterior lateral aspect of the knee joint adjacent to the popliteus tendon, most likely a synovial cyst or ganglion cyst. There is thickening of synovium. Suspect a 3 mm intra-articular body in the suprapatellar knee joint (series 5, image 4). IMPRESSION: 1. Medial meniscal extrusion and complex tear of the posterior horn and body of the medial meniscus. 2. Horizontal tear of the posterior horn and body of the lateral meniscus. There is also tear of anterior root of the lateral meniscus. 3. Partial tear of the deep layer of the LCL. 4. High-grade partial tear of popliteus tendon at its insertion to the lateral femoral condyle. 5. Denuded weight-bearing articular surface of the medial femoral condyle and medial tibial plateau. 6. Large knee joint effusion and thickening of synovial, consistent with synovitis. 7. Possible small intra-articular body in the suprapatellar knee joint. Dictated by: Dale Ghosh M.D. on 11/24/2021 at 17:11 Approved by: Dale Ghosh M.D. on 11/25/2021 at 10:31
== END ==
PROVIDERS: PCP Family Medicine; Referring Provider Family Medicine; Visit Provider Family Medicine
DX: S83.232A Complex tear of medial meniscus, current injury, left knee, initial encounter (principal); S83.282A Other tear of lateral meniscus, current injury, left knee, initial encounter; S83.422A Sprain of lateral collateral ligament of left knee, initial encounter; M17.12 Unilateral primary osteoarthritis, left knee; S76.312A Strain of muscle, fascia and tendon of the posterior muscle group at thigh level, left thigh, initial encounter; M25.462 Effusion, left knee; M25.562 Pain in left knee
CPT/HCPCS: 73721

== ENCOUNTER → 2021-12-21 12:32 | Outpatient (CLI) | payer MEDICARE, SELFPAY ==
[2019-01-05 10:35] VITALS: PULSE 57; RESP 16; O2SAT 93
[2021-07-21 18:23] VITALS: BMI 35.5
[2021-12-21 13:48] LABS: Hematocrit 36.2 % (36-46)
[2021-12-21 14:36] LABS: BUN Creatinine Ratio 20.4 (6-22); Blood Urea Nitrogen 28 mg/dL (7-17); Calcium 8.9 mg/dL (8.4-10.2); Carbon Dioxide 31 mmol/L (22-32); Chloride 102 mmol/L (98-107); Estimated Glomerular Filt Rate 40 mL/min (>60); Glucose 127 mg/dL (80-110); HEMOLYSIS < 15 (0-50); Potassium 4.6 mmol/L (3.4-5.1); Sodium 140 mmol/L (137-145)
[2021-12-21 16:23] LABS: Creatinine Urine Random 31.8 mg/dL; Protein (Total) Urine Random 12 mg/dL (0-12); Protein Creatinine Ratio Urine 0.37 GRAM/24H
[2021-12-22 07:37] LABS: Parathyroid Hormone Int 82 pg/mL (15-65)
== END ==
PROVIDERS: PCP Family Medicine; Referring Provider Student in an Organized Health Care Education/Training Program; Visit Provider Student in an Organized Health Care Education/Training Program
DX: N05.9 Unspecified nephritic syndrome with unspecified morphologic changes (principal); D64.9 Anemia, unspecified; R80.9 Proteinuria, unspecified; N25.81 Secondary hyperparathyroidism of renal origin
CPT/HCPCS: 36415; 80048; 82570; 83970; 84156; 85014; 85018

== ENCOUNTER → 2022-01-12 10:43 | Outpatient (CLI) | payer MEDICARE, SELFPAY ==
[2019-01-05 10:35] VITALS: PULSE 57; RESP 16; O2SAT 93
[2021-07-21 18:23] VITALS: BMI 35.5
[2022-01-12 12:17] LABS: COVID19 -Nasal RAPID Negative (Negative)
== END ==
PROVIDERS: PCP Family Medicine; Referring Provider Internal Medicine; Visit Provider Internal Medicine
DX: Z20.822 Contact with and (suspected) exposure to COVID-19 (principal)
CPT/HCPCS: 87635; C9803

== ENCOUNTER → 2022-01-12 10:44 | Outpatient (CLI) | payer MEDICARE, SELFPAY ==
[2019-01-05 10:35] VITALS: PULSE 57; RESP 16; O2SAT 93
[2021-07-21 18:23] VITALS: BMI 35.5
--- NOTE | 2022-01-20 07:41 | PM.PFT.1 ---
Pulmonary Function Test Referral & Results Date Patient Seen: 01/12/22 Requesting provider: Lui Moreira Results: The spirometry demonstrates an FVC of 2.56 L which is 110% of predicted. The FEV1 was measured at 2.35 L which is 136% of predicted. The FEV1/FVC ratio was 92 which is 122% of predicted. Following the administration of bronchodilator there was no change to above normal numbers. Lung volumes show an SVC of 2.37 L which is 100% of predicted. The diffusing capacity was measured at 16.8 which is 89% of predicted. The maximum voluntary ventilation was normal Interpretation: This study demonstrates normal pulmonary function
== END ==
PROVIDERS: PCP Family Medicine; Referring Provider Nurse Practitioner Family; Visit Provider Nurse Practitioner Family
DX: R06.09 Other forms of dyspnea (principal); Z87.891 Personal history of nicotine dependence; Z20.822 Contact with and (suspected) exposure to COVID-19
CPT/HCPCS: 87635; 94060; 94726; 94729; C9803

== ENCOUNTER → 2022-03-06 10:49 | Outpatient (CLI) | payer MEDICARE, SELFPAY ==
[2019-01-05 10:35] VITALS: PULSE 57; RESP 16; O2SAT 93
[2021-07-21 18:23] VITALS: BMI 35.5
[2022-03-06 11:57] LABS: COVID19 -Nasal RAPID Negative (Negative)
--- NOTE | 2022-03-07 20:57 | DI.NM.S_ITS ---
DATE OF SERVICE: 03/06/2022 PROCEDURE: Pharmacological perfusion study. INDICATION: Shortness of breath with underlying diabetes mellitus, hypertension and hyperlipidemia. RADIOPHARMACEUTICAL: 25.7 millicurie technetium-99m Myoview IV was injected at stress and 25.0 millicurie technetium-99m Myoview IV was injected at rest. CARDIAC STRESS: The patient underwent IV Lexiscan perfusion study under the supervision of an attending staff using standard Lexiscan protocol. The patient remained hemodynamically stable. Baseline rhythm was sinus. During stress, there were no convincing ischemic changes seen. No significant arrhythmias. The patient had minimal dyspnea. No chest discomfort. RAW DATA: There is increased subdiaphragmatic activity. Hot spot seen encroaching the inferior border of the heart. GATED STUDY: Resting LV ejection fraction is 70 percent and stress LV ejection fraction 78 percent without any obvious wall motion abnormalities. Resting end- diastolic volume 87 mL. TID ratio 1.27. Lung/heart ratio 0.34. MYOCARDIAL PERFUSION SCAN: Stress supine and resting supine images revealed normal myocardial perfusion. No convincing ischemia or infarction pattern seen. CONCLUSION: This is a normal myocardial perfusion study with preserved left ventricular function. Overall, low-risk myocardial perfusion scan. Nani Morton - JANNETTE/dimple/juan doc#: [id number]/job#: [id number] dd: 03/07/2022 17:05:00 dt: 03/07/2022 20:36:00 DICTATING /COPIES TO: Sebastian Nieto MD COPIES MNE: CHARLEY;
== END ==
PROVIDERS: Family Provider Family Medicine; PCP Family Medicine; Referring Provider Internal Medicine Cardiovascular Disease; Visit Provider Internal Medicine Cardiovascular Disease
DX: R06.09 Other forms of dyspnea (principal); R06.02 Shortness of breath; E11.9 Type 2 diabetes mellitus without complications; I10 Essential (primary) hypertension; E78.5 Hyperlipidemia, unspecified; Z20.822 Contact with and (suspected) exposure to COVID-19
CPT/HCPCS: 78452; 87635; 93017; A9502; J2785

== ENCOUNTER → 2022-03-14 11:13 | Outpatient (CLI) | payer MEDICARE, SELFPAY ==
[2019-01-05 10:35] VITALS: PULSE 57; RESP 16; O2SAT 93
[2021-07-21 18:23] VITALS: BMI 35.5
[2022-03-14 12:13] LABS: Add Manual Diff / Slide Review NO; Basophils Absolute Auto 0 /uL (0-100); Basophils Percent Auto 0.9 % (0-2); Eosinophils Absolute Auto 100 /uL (0-450); Eosinophils Percent Auto 1.7 % (2-4); Hematocrit 36.2 % (36-46); Lymphocytes Absolute Auto 1400 /uL (1100-4500); Lymphocytes Percent Auto 28.6 % (25-40); Mean Corpuscular HGB Conc 33.1 % (30-36); Mean Corpuscular Volume 84.5 fL (80-100); Monocytes Absolute Auto 300 /uL (0-900); Monocytes Percent Auto 6.7 % (3-14); Neutrophils Absolute Auto 3100 /uL (1500-7000); Neutrophils Percent Auto 62.1 % (50-75); Platelet Count 197 X10^3/uL (150-400); Red Blood Cell Count 4.28 X10^6/uL (4.0-5.2); White Blood Cell Count 4.9 X10^3/uL (4.5-11.0)
[2022-03-14 13:01] LABS: Alanine Aminotransferase 18 IU/L (<35); Albumin Globulin Ratio 1.3 (1.0-2.8); Alkaline Phosphatase 71 U/L (38-126); Aspartate Aminotransferase 23 IU/L (14-36); BUN Creatinine Ratio 15.4 (6-22); Bilirubin Total 0.4 mg/dL (0.2-1.3); Blood Urea Nitrogen 21 mg/dL (7-17); Calcium 9.1 mg/dL (8.4-10.2); Carbon Dioxide 28 mmol/L (22-32); Chloride 103 mmol/L (98-107); Cholesterol 153 mg/dL (140-199); Estimated Glomerular Filt Rate 41 mL/min (>60); Globulin 3.2 g/dL (1.7-4.1); Glucose 92 mg/dL (80-110); HDL Cholesterol 64 mg/dL (40-60); HEMOLYSIS < 15 (0-50); LDL Cholesterol Calculated 64 mg/dL (<100); Magnesium 1.3 mg/dL (1.6-2.3); Potassium 4.4 mmol/L (3.4-5.1); Sodium 141 mmol/L (137-145); Total Protein 7.2 g/dL (6.3-8.2); Triglycerides 124 mg/dL (35-150)
[2022-03-14 13:08] LABS: NT-proBNP (BNP-Adult 18+) 183 pg/mL (<450)
== END ==
PROVIDERS: Family Provider Family Medicine; PCP Family Medicine; Referring Provider Nurse Practitioner Family; Visit Provider Nurse Practitioner Family
DX: R06.00 Dyspnea, unspecified (principal); I51.89 Other ill-defined heart diseases; I10 Essential (primary) hypertension; D64.9 Anemia, unspecified; R00.2 Palpitations; E78.5 Hyperlipidemia, unspecified
CPT/HCPCS: 36415; 80053; 80061; 83735; 83880; 84443; 85025

== ENCOUNTER → 2022-04-21 12:55 | Outpatient (CLI) | payer MEDICARE, SELFPAY ==
[2019-01-05 10:35] VITALS: PULSE 57; RESP 16; O2SAT 93
[2021-07-21 18:23] VITALS: BMI 35.5
[2022-04-21 13:46] LABS: Add Manual Diff / Slide Review NO; Basophils Absolute Auto 100 /uL (0-100); Basophils Percent Auto 0.9 % (0-2); Eosinophils Absolute Auto 100 /uL (0-450); Hematocrit 37.9 % (36-46); Hemoglobin 12.7 g/dL (12.0-16.0); Lymphocytes Absolute Auto 1300 /uL (1100-4500); Lymphocytes Percent Auto 19.8 % (25-40); Mean Corpuscular HGB Conc 33.5 % (30-36); Mean Corpuscular Hemoglobin 28.2 PG (26-34); Mean Corpuscular Volume 84.2 fL (80-100); Monocytes Absolute Auto 400 /uL (0-900); Monocytes Percent Auto 6.1 % (3-14); Neutrophils Absolute Auto 4900 /uL (1500-7000); Neutrophils Percent Auto 72.2 % (50-75); Platelet Count 210 X10^3/uL (150-400); Red Cell Distribution Width 13.5 % (11.6-14.8); White Blood Cell Count 6.7 X10^3/uL (4.5-11.0)
[2022-04-21 14:07] LABS: Alanine Aminotransferase 22 IU/L (<35); Albumin 4.2 g/dL (3.5-5.0); Albumin Globulin Ratio 1.2 (1.0-2.8); Alkaline Phosphatase 82 U/L (38-126); Aspartate Aminotransferase 37 IU/L (14-36); BUN Creatinine Ratio 19.5 (6-22); Bilirubin Total 0.6 mg/dL (0.2-1.3); Blood Urea Nitrogen 24 mg/dL (7-17); Carbon Dioxide 29 mmol/L (22-32); Chloride 100 mmol/L (98-107); Estimated Glomerular Filt Rate 46 mL/min (>60); Globulin 3.5 g/dL (1.7-4.1); Glucose 204 mg/dL (80-110); HEMOLYSIS < 15 (0-50); Potassium 3.9 mmol/L (3.4-5.1); Sodium 140 mmol/L (137-145); Total Protein 7.7 g/dL (6.3-8.2)
[2022-04-21 14:12] LABS: Hemoglobin A1C% w Est Avg Glu 7.3 % (4.0-6.0)
[2022-04-21 16:40] LABS: Appearance Urine UA SL CLOUDY; Bilirubin Urine UA NEGATIVE (NEGATIVE); Color Urine UA YELLOW; Glucose Urine UA NEGATIVE (Negative); Ketones Urine UA NEGATIVE (NEGATIVE); Leukocyte Esterase Urine UA NEGATIVE (NEGATIVE); Nitrite Urine UA NEGATIVE (Negative); Occult Blood Urine UA 1+ (Negative); Protein Urine UA TRACE (Negative); Urobilinogen Urine UA 0.2 E.U./dL (0.2)
[2022-04-21 16:54] LABS: Bacteria Urine None Seen; Culture Indicated Urine Cult Not Indicated; RBC Urine 0-1/HPF (0-5/HPF); Squamous Epithelial Cell Urine 1-5 /HPF (0-5/HPF); WBC Urine 0-1/HPF (0-5/HPF)
== END ==
PROVIDERS: Internal Medicine Medical Oncology; Family Provider Family Medicine; PCP Family Medicine; Referring Provider Internal Medicine; Visit Provider Internal Medicine
DX: E11.22 Type 2 diabetes mellitus with diabetic chronic kidney disease (principal); N18.32 Chronic kidney disease, stage 3b; D63.1 Anemia in chronic kidney disease; E11.21 Type 2 diabetes mellitus with diabetic nephropathy; E78.00 Pure hypercholesterolemia, unspecified; R10.11 Right upper quadrant pain; R10.2 Pelvic and perineal pain
CPT/HCPCS: 36415; 80053; 81001; 83036; 85025

== ENCOUNTER → 2022-05-01 11:51 | Outpatient (CLI) | payer MEDICARE, MEDICAID, SELFPAY ==
[2019-01-05 10:35] VITALS: PULSE 57; RESP 16; O2SAT 93
[2021-07-21 18:23] VITALS: BMI 35.5
--- NOTE | 2022-05-01 11:54 | DI.RAD.S_ITS ---
PROCEDURE: XR HAND RT MIN 3V INDICATIONS: right hand pain and swelling TECHNIQUE: 3 views of the hand(s) acquired. COMPARISON: [facility], , WRIST MINIMUM 3 VIEWS RIGHT, 12/14/2009, 11:51. FINDINGS: Bones: No fractures or dislocations. Carpal bones are normally aligned. No suspicious bony lesions. Moderate osteoarthritic changes are seen in wrist and hand. There are periarticular bony erosion, most noticeable in metacarpal heads and at the base of the 5th distal phalanx. Mild periarticular osteopenia. Soft tissues: No suspicious soft tissue calcifications. IMPRESSION: 1. Moderate arthritic changes are present. There are periarticular bony erosions and periarticular osteopenia, suggesting inflammatory arthritis. Recommend correlation with serum markers. Dictated by: Dale Ghosh M.D. on 05/01/2022 at 17:16 Approved by: Dale Ghosh M.D. on 05/01/2022 at 21:45
[2022-05-01 13:20] LABS: C-Reactive Protein Quant 0.8 mg/dL (<1.0); Erythrocyte Sedimentation Rate 31 MM/HR (0-20)
[2022-05-01 13:21] LABS: Rheumatoid Factor 10.8 IU/mL (<12.0)
[2022-05-03 14:10] LABS: Calcium 7.8 mg/dL (8.7-10.3); Parathyroid Hormone, Intact 83 pg/mL (15-65)
[2022-05-04 14:37] LABS: ANA Screen, IFA Negative (.)
== END ==
PROVIDERS: Family Provider Family Medicine; PCP Family Medicine; Referring Provider Family Medicine; Visit Provider Family Medicine
DX: M25.641 Stiffness of right hand, not elsewhere classified (principal); M79.641 Pain in right hand; M85.841 Other specified disorders of bone density and structure, right hand; M79.89 Other specified soft tissue disorders; E21.3 Hyperparathyroidism, unspecified
CPT/HCPCS: 36415; 73130; 82310; 83970; 85651; 86038; 86140; 86430

== ENCOUNTER 2022-05-10 13:00 | Outpatient (RCR) | payer MEDICARE, MEDICAID, SELFPAY ==
[2019-01-05 10:35] VITALS: PULSE 57; RESP 16; O2SAT 93
[2021-07-21 18:23] VITALS: BMI 35.5
--- NOTE | 2022-03-07 22:24 | PT.OPPOC ---
Physical, Occupational & Speech Therapy At [facility] Current Diagnoses Unilateral primary osteoarthritis, left knee (03/07/22) Pain in left knee (03/07/22) Visit Care Team Role Provider Type Jovan Nichols MD Attending Provider Physician Family Provider Primary Care Provider Referring Provider Specialty: Family Practice Address: [address] [place] [address] Email: [email or web address] Plan Of Care PT-OP-T Assessment and Plan Start: 03/03/22 11:57 Freq: Status: Active Protocol: Document 03/07/22 11:19 AMB (Rec: 03/08/22 22:22 AMB [id number]) Physical Therapy Assessment Rehab Potential Rehabilitation Potential Good Evaluation Complexity Number of Personal Factors/Comorbidities 1-2 Number of Body Systems Impaired 4 or More Clinical Presentation at Evaluation Stable Impairments Impairments Activity Tolerance,Functional Activities,Functional Mobility ,Gait,ROM,Strength Goals Three Impairment Pain Short Term Goal (STG) DORA will move from sit to stand from a standard height chair without UE support without an increase in knee pain. STG Duration 4 weeks Chemical Milling Processor Goal (LTG) DORA will ascend and descend 4 stairs with an alternating gait pattern without an increase in pain. LTG Duration 8 weeks Two Impairment Strength Short Term Goal (STG) DORA amelia be independent and consistent with a HEP to improve her knee and hip strength and range. STG Duration 4 weeks One Impairment ROM Short Term Goal (STG) DORA will improve her knee flexion to 120 degrees actively. STG Duration 4 weeks Assessment Summary Assessment DORA attends physical therapy with L knee pain, restricted ROM and reduced strength. She has difficulty with stairs, standing and moving from sit to stand due to her pain. She is considering TKA, but whatever she decides, will benefit from PT to improve her transfers, ROM and strength. A limitation is her $40 copay which she finds financially burdensome. Physical Therapy Plan Frequency and Duration Frequency of Treatment 2x/Week Duration of treatment (weeks) 8 Plan of Care Start Date 03/07/22 Plan of Care End Date 05/02/22 Therapeutic Interventions Therapeutic Interventions Gait Training,Home Exercise Program,Joint Mobilizations, Manual Therapy,Neuromuscular Re-education,Self-Care/Home Management,Therapeutic Activities,Therapeutic Exercises Modalities Cold Pack/Ice Massage,Electric Stimulation,Hot Packs Next Visit Focus/Plan Next Note Type Treatment Note Next Visit Plan Recumbent bike, sit to stand training, work on flexion ROM and closed chain quad strength Plan of Care Dates Plan of Care Start Date 03/07/22 Plan of Care End Date 05/02/22 Electronically Signed by: Michelle Howe, PT 03/08/22 7040 If you are in agreement with this Plan of Care, please return a signed and dated copy. I have reviewed this Plan of Care and certify that the skilled therapy services above are required to meet the patient?s needs. Physician Signature Date Printed Name and Credentials Clinical Instructor Signature Printed Name and Credentials
--- NOTE | 2022-03-07 22:24 | PT.OIE ---
Current Diagnoses Unilateral primary osteoarthritis, left knee (03/07/22) Pain in left knee (03/07/22) Past Medical History (Last Updated 11/22/21 @ 16:57 by Jovan Nichols MD) Abnormal Pap smear of cervix Anemia in chronic kidney disease Angioedema Chronic low back pain with sciatica Crohn's disease Diabetes mellitus Duodenal ulcer GERD (gastroesophageal reflux disease) Grade II diastolic dysfunction Hyperlipidemia Past Surgical History (Last Reviewed 07/14/21 @ 12:04 by Rafal Jaquez MD) History of left oophorectomy Status post cone biopsy of cervix Status post laparoscopic cholecystectomy Visit Care Team Role Provider Type Jovan Nichols MD Attending Provider Physician Family Provider Primary Care Provider Referring Provider Specialty: [facility] Address: [address] [place] [address], [facility] Email: [email or web address] Physical Therapy Initial Evaluation PT-OP-A Visit Information Start: 03/03/22 11:57 Freq: Status: Active Protocol: Document 03/07/22 11:19 AMB (Rec: 03/07/22 11:56 AMB [id number]) Out-Patient Physical Therapy Visit Information Visit Information Visit Type Initial Evaluation Visit Start Time 11:15 Visit Stop Time 12:00 Total Visit Minutes 45 Visit Number 1 PT-OP-B Current Condition Start: 03/03/22 11:57 Freq: Status: Active Protocol: Document 03/07/22 11:19 AMB (Rec: 03/07/22 11:56 AMB [id number]) Current Condition History of Current Condition Onset Date chronic Current Complaints L>R knee pain History of Current Condition DORA has had knee pain for some time but it has significantly worsened recently and she is considering getting a total knee replacement. She did have a meniscus repair surgery years ago. Had an MRI which showed a current meniscus tear . Recently had a cortisone shot, has been taking acetomenophen every day. Has been wearing a knee brace. Sees Dr. Olivo in the beginning of March to discuss possible surgery. 3 stairs to enter with 1 rail, single story once you enter. Does do 2 feet to a stair because of the pain. Does need environmental support to perform a floor transfer. Sit to stand is a problem, car transfers, standing for a longer period of time. Lives alone but adult daughter lives nearby. Personal Factors Other Personal Factors That May Effect DMII, kidney disease, hx Therapy/Recovery hysterectomy PT-OP-C Subjective Start: 03/03/22 11:57 Freq: Status: Active Protocol: Document 03/07/22 11:15 AMB (Rec: 03/08/22 16:02 AMB [id number]) Patient Questionnaires Lower Extremity Functional Scale LEFS Score 29 LEFS Impairment 60 to 79% Impaired (Score 17- 31) PT-OP-G Mobility & Gait Start: 03/03/22 12:00 Freq: Status: Active Protocol: Document 03/07/22 11:15 AMB (Rec: 03/08/22 16:02 AMB [id number]) OP Gait Assessment Comments Gait Comments MJ ambulates without AD with slightly antalgic gait especially when first moving and stiff PT-OP-K Range of Motion Start: 03/03/22 12:00 Freq: Status: Active Protocol: Document 03/07/22 11:15 AMB (Rec: 03/08/22 16:02 AMB [id number]) Knee Goniometric Range of Motion Knee Right Flexion Passive (degrees) 120 Extension Passive (degrees) 0 Left Patient Position Supine Flexion Passive (degrees) 115 Extension Passive (degrees) 0 PT-OP-M Strength Start: 03/03/22 12:00 Freq: Status: Active Protocol: Document 03/07/22 11:15 AMB (Rec: 03/08/22 16:02 AMB [id number]) Hip Strength Hip Manual Muscle Testing Left Flexion (L2) 4 Good Extension (S1) 4 Good Abduction 4 Good Comments pain in the knee with SLR Knee Strength Knee Manual Muscle Testing Right Flexion (S2) 4+ Good+ Extension (L3) 4+ Good+ Left Flexion (S2) 4 Good Extension (L3) 3+ Fair+ Comments pain with extension PT-OP-Q Treatments Start: 03/03/22 11:57 Freq: Status: Active Protocol: Document 03/07/22 11:15 AMB (Rec: 03/08/22 16:03 AMB [id number]) Therapeutic Exercises Supine Exercises SLR Side left Reps/Minutes 10 heel slides Side left Reps/Minutes 10 PT-OP-T Assessment and Plan Start: 03/03/22 11:57 Freq: Status: Active Protocol: Document 03/07/22 11:19 AMB (Rec: 03/08/22 22:22 [facility] [id number]) Physical Therapy Assessment Rehab Potential Rehabilitation Potential Good Evaluation Complexity Number of Personal Factors/Comorbidities 1-2 Number of Body Systems Impaired 4 or More Clinical Presentation at Evaluation Stable Impairments Impairments Activity Tolerance,Functional Activities,Functional Mobility ,Gait,ROM,Strength Goals Three Impairment Pain Short Term Goal (STG) DORA will move from sit to stand from a standard height chair without UE support without an increase in knee pain. STG Duration 4 weeks Dial Polisher Goal (LTG) DORA will ascend and descend 4 stairs with an alternating gait pattern without an increase in pain. LTG Duration 8 weeks Two Impairment Strength Short Term Goal (STG) DORA amelia be independent and consistent with a HEP to improve her knee and hip strength and range. STG Duration 4 weeks One Impairment ROM Short Term Goal (STG) DORA will improve her knee flexion to 120 degrees actively. STG Duration 4 weeks Assessment Summary Assessment DORA attends physical therapy with L knee pain, restricted ROM and reduced strength. She has difficulty with stairs, standing and moving from sit to stand due to her pain. She is considering TKA, but whatever she decides, will benefit from PT to improve her transfers, ROM and strength. A limitation is her $40 copay which she finds financially burdensome. Physical Therapy Plan Frequency and Duration Frequency of Treatment 2x/Week Duration of treatment (weeks) 8 Plan of Care Start Date 03/07/22 Plan of Care End Date 05/02/22 Therapeutic Interventions Therapeutic Interventions Gait Training,Home Exercise Program,Joint Mobilizations, Manual Therapy,Neuromuscular Re-education,Self-Care/Home Management,Therapeutic Activities,Therapeutic Exercises Modalities Cold Pack/Ice Massage,Electric Stimulation,Hot Packs Next Visit Focus/Plan Next Note Type Treatment Note Next Visit Plan Recumbent bike, sit to stand training, work on flexion ROM and closed chain quad strength
--- NOTE | 2022-03-14 12:57 | PT.OTN ---
Current Diagnoses Unilateral primary osteoarthritis, left knee (03/14/22) Pain in left knee (03/14/22) Physical Therapy Treatment Note PT-OP-A Visit Information Start: 03/03/22 11:57 Freq: Status: Active Protocol: Document 03/14/22 12:10 TS (Rec: 03/14/22 15:57 TS [id number]) Out-Patient Physical Therapy Visit Information Visit Information Visit Type Treatment Note Visit Note RAMONA Koch lead treatment under supervision and direction by JARED Glez. Visit Start Time 12:15 Visit Stop Time 12:57 Total Visit Minutes 42 Visit Number 2 Number of FIXTURE FABRICATOR REPAIRER Visits 1 PT-OP-B Current Condition Start: 03/03/22 11:57 Freq: Status: Active Protocol: Document 03/07/22 11:19 AMB (Rec: 03/07/22 11:56 AMB [id number]) Current Condition History of Current Condition Onset Date chronic Current Complaints L>R knee pain History of Current Condition DORA has had knee pain for some time but it has significantly worsened recently and she is considering getting a total knee replacement. She did have a meniscus repair surgery years ago. Had an MRI which showed a current meniscus tear . Recently had a cortisone shot, has been taking acetomenophen every day. Has been wearing a knee brace. Sees Dr. Olivo in the beginning of March to discuss possible surgery. 3 stairs to enter with 1 rail, single story once you enter. Does do 2 feet to a stair because of the pain. Does need environmental support to perform a floor transfer. Sit to stand is a problem, car transfers, standing for a longer period of time. Lives alone but adult daughter lives nearby. Personal Factors Other Personal Factors That May Effect DMII, kidney disease, hx Therapy/Recovery hysterectomy PT-OP-C Subjective Start: 03/03/22 11:57 Freq: Status: Active Protocol: Document 03/14/22 12:10 TS (Rec: 03/14/22 15:57 TS [id number]) OP-PT Subjective Patient Comments Patient Comments Pt reports she did her HEP yesterday and went to yoga, had pn last night when going to bed and this afternoon. Rates pn 2/10. Has an appointment with orthopedist a month from today, 04/13/22. PT-OP-G Mobility & Gait Start: 03/03/22 12:00 Freq: Status: Active Protocol: Document 03/07/22 11:15 AMB (Rec: 03/08/22 16:02 AMB [id number]) OP Gait Assessment Comments Gait Comments MJ ambulates without AD with slightly antalgic gait especially when first moving and stiff PT-OP-K Range of Motion Start: 03/03/22 12:00 Freq: Status: Active Protocol: Document 03/07/22 11:15 AMB (Rec: 03/08/22 16:02 AMB [id number]) Knee Goniometric Range of Motion Knee Right Flexion Passive (degrees) 120 Extension Passive (degrees) 0 Left Patient Position Supine Flexion Passive (degrees) 115 Extension Passive (degrees) 0 PT-OP-M Strength Start: 03/03/22 12:00 Freq: Status: Active Protocol: Document 03/07/22 11:15 AMB (Rec: 03/08/22 16:02 AMB [id number]) Hip Strength Hip Manual Muscle Testing Left Flexion (L2) 4 Good Extension (S1) 4 Good Abduction 4 Good Comments pain in the knee with SLR Knee Strength Knee Manual Muscle Testing Right Flexion (S2) 4+ Good+ Extension (L3) 4+ Good+ Left Flexion (S2) 4 Good Extension (L3) 3+ Fair+ Comments pain with extension PT-OP-Q Treatments Start: 03/03/22 11:57 Freq: Status: Active Protocol: Document 03/14/22 12:10 TS (Rec: 03/14/22 15:57 TS [id number]) Cardio Equipment Recumbent Bicycle Duration (Minutes) 5 Resistance 2 Seat Position 2 Other Pt reports some pn, 2/10 Therapeutic Exercises Supine Exercises Abduction Supine Exercise Name Added to [facility] Equipment Used Mat Table Reps/Minutes 1x20 Comments Cued for decreased hip ER Quad Set Supine Exercise Name Added to HEP Reps/Minutes 1x10 3 sec hold Comments Pt reports comfortable, no discomfort reported SLR Side left Reps/Minutes 1x5 Comments Pt had some discomfort in lateral L knee heel slides Supine Exercise Name Added to [facility] Side left Reps/Minutes 1x20 Comments Cues for fully extended knee Sitting Exercises LAQ Sitting Exercise Name Added to HEP Reps/Minutes 1x15 Comments Cues to not go to full end range, pain free range Adductor Ball Squeeze Sitting Exercise Name Added to HEP Reps/Minutes 1x10 5 sec hold Comments Pt feels fatigued, decreased from 5sec>3sec hold Standing Exercises TKE Reps/Minutes 1x10 Comments Good response, no discomfort Sit to Stands Standing Exercise Name 19.5, arms crossed, Added to HEP Equipment Used Mat table Reps/Minutes 2x10 Comments Cues for narrower stance, relieved stress on outside of knee Step Ups Standing Exercise Name FWD, lateral Side bilateral Equipment Used 4 stair Reps/Minutes 1x10EA, 1x2 lateral Comments Some discomfort in L knee, cues for posture, d/c lateral due to pn. PT-OP-T Assessment and Plan Start: 03/03/22 11:57 Freq: Status: Active Protocol: Document 03/14/22 12:10 TS (Rec: 03/14/22 15:57 TS [id number]) Physical Therapy Assessment Goals Three Impairment Pain Short Term Goal (STG) MJ will move from sit to stand from a standard height chair without UE support without an increase in knee pain. STG Duration 4 weeks Classroom Teacher Goal (LTG) MJ will ascend and descend 4 stairs with an alternating gait pattern without an increase in pain. LTG Duration 8 weeks Two Impairment Strength Short Term Goal (STG) MJ amelia be independent and consistent with a HEP to improve her knee and hip strength and range. STG Duration 4 weeks One Impairment ROM Short Term Goal (STG) MJ will improve her knee flexion to 120 degrees actively. STG Duration 4 weeks Assessment Summary Assessment Pt reported discomfort in L knee throughout treatment with flexion of knee, modified ex to accomdate for pn during flexion. Pt required cues for sit to stand with hip hinge, weight forward. Intially had poor eccentric control into sitting but improved with repetitions and cues. Pt will benefit from continued intervention to improve stength in LLE and tolerance to stair activities. Physical Therapy Plan Frequency and Duration Frequency of Treatment 2x/Week Duration of treatment (weeks) 8 Plan of Care Start Date 03/07/22 Plan of Care End Date 05/02/22 Therapeutic Interventions Therapeutic Interventions Gait Training,Home Exercise Program,Joint Mobilizations, Manual Therapy,Neuromuscular Re-education,Self-Care/Home Management,Therapeutic Activities,Therapeutic Exercises Modalities Cold Pack/Ice Massage,Electric Stimulation,Hot Packs Next Visit Focus/Plan Next Note Type Treatment Note Next Visit Plan Assess HEP, trial stretching, self-stm. Continue stairs/step ups, single leg stance.
--- NOTE | 2022-03-23 13:45 | PT.OTN ---
Current Diagnoses Unilateral primary osteoarthritis, left knee (03/23/22) Pain in left knee (03/23/22) Physical Therapy Treatment Note PT-OP-A Visit Information Start: 03/03/22 11:57 Freq: Status: Active Protocol: Document 03/23/22 13:05 TS (Rec: 03/23/22 16:09 TS [id number]) Out-Patient Physical Therapy Visit Information Visit Information Visit Type Treatment Note Visit Note RAMONA Koch lead treatment under supervision and direction by JARED Glez. Visit Start Time 13:05 Visit Stop Time 13:45 Total Visit Minutes 40 Visit Number 3 Number of PROCESS CONTROL SUPERVISOR Visits 2 PT-OP-B Current Condition Start: 03/03/22 11:57 Freq: Status: Active Protocol: Document 03/07/22 11:19 AMB (Rec: 03/07/22 11:56 AMB [id number]) Current Condition History of Current Condition Onset Date chronic Current Complaints L>R knee pain History of Current Condition DORA has had knee pain for some time but it has significantly worsened recently and she is considering getting a total knee replacement. She did have a meniscus repair surgery years ago. Had an MRI which showed a current meniscus tear . Recently had a cortisone shot, has been taking acetomenophen every day. Has been wearing a knee brace. Sees Dr. Olivo in the beginning of March to discuss possible surgery. 3 stairs to enter with 1 rail, single story once you enter. Does do 2 feet to a stair because of the pain. Does need environmental support to perform a floor transfer. Sit to stand is a problem, car transfers, standing for a longer period of time. Lives alone but adult daughter lives nearby. Personal Factors Other Personal Factors That May Effect DMII, kidney disease, hx Therapy/Recovery hysterectomy PT-OP-C Subjective Start: 03/03/22 11:57 Freq: Status: Active Protocol: Document 03/23/22 13:05 TS (Rec: 03/23/22 16:09 TS [id number]) OP-PT Subjective Patient Comments Patient Comments Pt reports not having any L knee pain, pain mostly occurs with walking on hills. L knee will give out her when walking to mailbox about 1/4 mile away. PT-OP-G Mobility & Gait Start: 03/03/22 12:00 Freq: Status: Active Protocol: Document 03/07/22 11:15 AMB (Rec: 03/08/22 16:02 AMB [id number]) OP Gait Assessment Comments Gait Comments MJ ambulates without AD with slightly antalgic gait especially when first moving and stiff PT-OP-K Range of Motion Start: 03/03/22 12:00 Freq: Status: Active Protocol: Document 03/07/22 11:15 AMB (Rec: 03/08/22 16:02 AMB [id number]) Knee Goniometric Range of Motion Knee Right Flexion Passive (degrees) 120 Extension Passive (degrees) 0 Left Patient Position Supine Flexion Passive (degrees) 115 Extension Passive (degrees) 0 PT-OP-M Strength Start: 03/03/22 12:00 Freq: Status: Active Protocol: Document 03/07/22 11:15 AMB (Rec: 03/08/22 16:02 AMB [id number]) Hip Strength Hip Manual Muscle Testing Left Flexion (L2) 4 Good Extension (S1) 4 Good Abduction 4 Good Comments pain in the knee with SLR Knee Strength Knee Manual Muscle Testing Right Flexion (S2) 4+ Good+ Extension (L3) 4+ Good+ Left Flexion (S2) 4 Good Extension (L3) 3+ Fair+ Comments pain with extension PT-OP-Q Treatments Start: 03/03/22 11:57 Freq: Status: Active Protocol: Document 03/23/22 13:05 TS (Rec: 03/23/22 16:09 TS [id number]) Cardio Equipment Recumbent Bicycle Duration (Minutes) 5 Resistance 2 Seat Position 2 Other Pt reports some pn, 2/10 Therapeutic Exercises Supine Exercises HS Stretch w/strap Side bilateral Reps/Minutes 2x30 Comments Cues for sequencing Sitting Exercises SElf STM Sitting Exercise Name Quad, hamstring, ITB Side bilateral Equipment Used Rolling Pin Reps/Minutes 10 Comments Cues for relaxed, nice soft massage. Self-Care/Home Management Treatment Education Patient Education Pain Management,Safety Other Education Instruction on self-stm with rolling pin for relaxation of quad, hamstring, ITB. Discussed HEP and breaking the exercises up throughout day to reduce soreness in LLE. Instructed pt to spread out HEP over the course of the day and to avoid doing HEP on her yoga days. PT-OP-T Assessment and Plan Start: 03/03/22 11:57 Freq: Status: Active Protocol: Document 03/23/22 13:05 TS (Rec: 03/23/22 16:09 TS [id number]) Physical Therapy Assessment Goals Three Impairment Pain Short Term Goal (STG) MJ will move from sit to stand from a standard height chair without UE support without an increase in knee pain. STG Duration 4 weeks Pearl Hand Goal (LTG) MJ will ascend and descend 4 stairs with an alternating gait pattern without an increase in pain. LTG Duration 8 weeks Two Impairment Strength Short Term Goal (STG) DORA amelia be independent and consistent with a HEP to improve her knee and hip strength and range. STG Duration 4 weeks One Impairment ROM Short Term Goal (STG) MJ will improve her knee flexion to 120 degrees actively. STG Duration 4 weeks Assessment Summary Assessment Pt reported feeling very sore today. Instructed pt to spread out HEP over the course of the day and to avoid doing HEP on her yoga days. Educated pt on benefits of self-stm with roller pin for quad, hamstring and ITB. Pt will benefit from continued intervention to improve tolerance to activities and decrease buckling of knee when walking to mailbox. Physical Therapy Plan Frequency and Duration Frequency of Treatment 2x/Week Duration of treatment (weeks) 8 Plan of Care Start Date 03/07/22 Plan of Care End Date 05/02/22 Therapeutic Interventions Therapeutic Interventions Gait Training,Home Exercise Program,Joint Mobilizations, Manual Therapy,Neuromuscular Re-education,Self-Care/Home Management,Therapeutic Activities,Therapeutic Exercises Modalities Cold Pack/Ice Massage,Electric Stimulation,Hot Packs Next Visit Focus/Plan Next Note Type Treatment Note Next Visit Plan Assess HEP, self-stm and HS stretch with strap, closed chain quad strength. Recumbent bike, sit to stand training, work on flexion ROM.
--- NOTE | 2022-03-29 16:23 | PT.OTN ---
Current Diagnoses Unilateral primary osteoarthritis, left knee (03/29/22) Pain in left knee (03/29/22) Physical Therapy Treatment Note PT-OP-A Visit Information Start: 03/03/22 11:57 Freq: Status: Active Protocol: Document 03/29/22 15:11 SAK (Rec: 03/29/22 16:20 SAK [id number]) Out-Patient Physical Therapy Visit Information Visit Information Visit Type Treatment Note Visit Start Time 15:15 Visit Number 4 Number of RADAR SIGNAL PROCESSING ENGINEER Visits 0 PT-OP-B Current Condition Start: 03/03/22 11:57 Freq: Status: Active Protocol: Document 03/07/22 11:19 AMB (Rec: 03/07/22 11:56 AMB [id number]) Current Condition History of Current Condition Onset Date chronic Current Complaints L>R knee pain History of Current Condition DORA has had knee pain for some time but it has significantly worsened recently and she is considering getting a total knee replacement. She did have a meniscus repair surgery years ago. Had an MRI which showed a current meniscus tear . Recently had a cortisone shot, has been taking acetomenophen every day. Has been wearing a knee brace. Sees Dr. Olivo in the beginning of March to discuss possible surgery. 3 stairs to enter with 1 rail, single story once you enter. Does do 2 feet to a stair because of the pain. Does need environmental support to perform a floor transfer. Sit to stand is a problem, car transfers, standing for a longer period of time. Lives alone but adult daughter lives nearby. Personal Factors Other Personal Factors That May Effect DMII, kidney disease, hx Therapy/Recovery hysterectomy PT-OP-C Subjective Start: 03/03/22 11:57 Freq: Status: Active Protocol: Document 03/29/22 15:11 SAK (Rec: 03/29/22 16:20 SAK [id number]) OP-PT Subjective Patient Comments Patient Comments Reports knee hurting a lot today, having difficulty with HEP especially stretches. Sees the doctor 04/13/22 (Dr. Olivo). Got a brace, hasn't worn because doesn't allow her to bend; will bring PT-OP-G Mobility & Gait Start: 03/03/22 12:00 Freq: Status: Active Protocol: Document 03/07/22 11:15 AMB (Rec: 03/08/22 16:02 AMB [id number]) OP Gait Assessment Comments Gait Comments MJ ambulates without AD with slightly antalgic gait especially when first moving and stiff PT-OP-K Range of Motion Start: 03/03/22 12:00 Freq: Status: Active Protocol: Document 03/07/22 11:15 AMB (Rec: 03/08/22 16:02 AMB [id number]) Knee Goniometric Range of Motion Knee Right Flexion Passive (degrees) 120 Extension Passive (degrees) 0 Left Patient Position Supine Flexion Passive (degrees) 115 Extension Passive (degrees) 0 PT-OP-M Strength Start: 03/03/22 12:00 Freq: Status: Active Protocol: Document 03/07/22 11:15 AMB (Rec: 03/08/22 16:02 AMB [id number]) Hip Strength Hip Manual Muscle Testing Left Flexion (L2) 4 Good Extension (S1) 4 Good Abduction 4 Good Comments pain in the knee with SLR Knee Strength Knee Manual Muscle Testing Right Flexion (S2) 4+ Good+ Extension (L3) 4+ Good+ Left Flexion (S2) 4 Good Extension (L3) 3+ Fair+ Comments pain with extension PT-OP-Q Treatments Start: 03/03/22 11:57 Freq: Status: Active Protocol: Document 03/29/22 15:11 SAK (Rec: 03/29/22 16:20 SAK [id number]) Cardio Equipment Recumbent Stepper (Sci-Fit) Duration (Minutes) 5 Resistance 1.5 Seat Position 7 Therapeutic Exercises Prone Exercises quad stretch Equipment Used strap Reps/Minutes 30 Sitting Exercises sit to stand Equipment Used orange ball between knees Reps/Minutes 5x Comments dec knee pain with ball HS stretch Side bilateral Equipment Used strap Reps/Minutes 2x30 SElf STM Sitting Exercise Name verbal review Standing Exercises quad stretch Reps/Minutes 1x30 Comments PT holdiing leg, unable to get on chair Manual Therapy Treatment Taping left knee Treatment Focus support, pain relief Type of Tape kinesiotape Comments 2 I strips: from tibial tuberosity laterally across joint line and proximal, medially across joint line and proximal 2 Y strips: from tib tub to med and lateral patella, from suprapetallar reg around patella distally Self-Care/Home Management Treatment Education Patient Education Body Mechanics,Home Exercise Program,Posture Other Education discussed importance of neutral LE alignment with gait , sit to stand; PT noted excess ER with sit to stand and with gait. issued updated HEP with alternative HS stretch plus HC stretch sitting, quad stretch prone with strap vs standing, sit to stand with ball. PT-OP-T Assessment and Plan Start: 03/03/22 11:57 Freq: Status: Active Protocol: Document 03/29/22 15:11 [facility] (Rec: 03/29/22 16:20 [facility] [id number]) Physical Therapy Assessment Goals Three Impairment Pain Short Term Goal (STG) MJ will move from sit to stand from a standard height chair without UE support without an increase in knee pain. STG Duration 4 weeks Industrial Technology Education Teacher Goal (LTG) MJ will ascend and descend 4 stairs with an alternating gait pattern without an increase in pain. LTG Duration 8 weeks Two Impairment Strength Short Term Goal (STG) DORA amelia be independent and consistent with a HEP to improve her knee and hip strength and range. STG Duration 4 weeks One Impairment ROM Short Term Goal (STG) MJ will improve her knee flexion to 120 degrees actively. STG Duration 4 weeks Assessment Summary Assessment Patient reporting difficulty with HEP, especially holding leg up for HS stretch; given alternative stretch seated. Options for quad stretch done, patient preference prone with strap. Trial kinesiotape left knee with patient reporting decrease in pain with tape. Has knee brace but sounds like she was putting on backward but she was asked to bring to PT for assessment. Improved LE alignment with sit to stand with ball between knees. Less pain with Sci- Fit vs recumbant ex bike. Physical Therapy Plan Frequency and Duration Frequency of Treatment 2x/Week Duration of treatment (weeks) 8 Plan of Care Start Date 03/07/22 Plan of Care End Date 05/02/22 Therapeutic Interventions Therapeutic Interventions Gait Training,Home Exercise Program,Joint Mobilizations, Manual Therapy,Neuromuscular Re-education,Self-Care/Home Management,Therapeutic Activities,Therapeutic Exercises Modalities Cold Pack/Ice Massage,Electric Stimulation,Hot Packs Next Visit Focus/Plan Next Note Type Treatment Note Next Visit Plan ASsess response to HEP modifications and additions and response to kinesiotape. Continue strengthening and ROM left knee. Assess knee brace if brings.
--- NOTE | 2022-04-28 16:00 | PT.OPPOC ---
Physical, Occupational & Speech Therapy At [facility] Current Diagnoses Unilateral primary osteoarthritis, left knee (04/28/22) Pain in left knee (04/28/22) Visit Care Team Role Provider Type Jovan Nichols MD Attending Provider Physician Family Provider Primary Care Provider Referring Provider Specialty: Family Practice Address: [address] [place] [address], [facility] Email: [email or web address] Plan Of Care PT-OP-T Assessment and Plan Start: 03/03/22 11:57 Freq: Status: Active Protocol: Document 04/28/22 14:50 AMB (Rec: 04/28/22 15:00 AMB [id number]) Physical Therapy Assessment Goals Three Impairment Pain Short Term Goal (STG) MJ will move from sit to stand from a standard height chair without UE support without an increase in knee pain. STG Duration 4 weeks Snf Goal (LTG) MJ will ascend and descend 4 stairs with an alternating gait pattern without an increase in pain. LTG Duration 8 weeks Two Impairment Strength Short Term Goal (STG) MJ amelia be independent and consistent with a HEP to improve her knee and hip strength and range. STG Duration 4 weeks One Impairment ROM Short Term Goal (STG) MJ will improve her knee flexion to 120 degrees actively. STG Duration 4 weeks Assessment Summary Assessment Pt reports pain is continuing. Going to get an injection. Has only been seen for 5 visits over the past 2 months due to scheduling issues, the holidays, pt getting covid, etc. Pt reports no real change in pain. ROM continues to be close to 0-115, with pain with resisted knee extension. Moving from sit to stand and stairs continues to be painful. Did encourage pt in body mechanics in the kitchen to avoid twisting the knee as this should help reduce pain. Pt only interested in a few more PT visits to finalize HEP and to continue to work on body mechanics. Physical Therapy Plan Frequency and Duration Frequency of Treatment 1x/Week Duration of treatment (weeks) 6 Plan of Care Start Date 04/28/22 Plan of Care End Date 06/09/22 Therapeutic Interventions Therapeutic Interventions Gait Training,Home Exercise Program,Joint Mobilizations, Manual Therapy,Neuromuscular Re-education,Self-Care/Home Management,Therapeutic Activities,Therapeutic Exercises Modalities Cold Pack/Ice Massage,Electric Stimulation,Hot Packs Next Visit Focus/Plan Next Note Type Treatment Note Next Visit Plan ASsess response to HEP modifications and additions and response to kinesiotape. Continue strengthening and ROM left knee. Assess knee brace if brings. Plan of Care Dates Plan of Care Start Date 04/28/22 Plan of Care End Date 06/09/22 Electronically Signed by: Michelle Howe, PT 04/29/22 2673 If you are in agreement with this Plan of Care, please return a signed and dated copy. I have reviewed this Plan of Care and certify that the skilled therapy services above are required to meet the patient?s needs. Physician Signature Date Printed Name and Credentials Clinical Instructor Signature Printed Name and Credentials
--- NOTE | 2022-04-28 16:00 | PT.OTN ---
Current Diagnoses Unilateral primary osteoarthritis, left knee (04/28/22) Pain in left knee (04/28/22) Physical Therapy Treatment Note PT-OP-A Visit Information Start: 03/03/22 11:57 Freq: Status: Active Protocol: Document 04/28/22 14:45 AMB (Rec: 04/29/22 13:11 AMB [id number]) Out-Patient Physical Therapy Visit Information Visit Information Visit Type Progress Note Visit Start Time 14:45 Visit Stop Time 15:15 Total Visit Minutes 30 Visit Number 5 Number of DRAMA THERAPIST Visits 0 PT-OP-B Current Condition Start: 03/03/22 11:57 Freq: Status: Active Protocol: Document 03/07/22 11:19 AMB (Rec: 03/07/22 11:56 AMB [id number]) Current Condition History of Current Condition Onset Date chronic Current Complaints L>R knee pain History of Current Condition DORA has had knee pain for some time but it has significantly worsened recently and she is considering getting a total knee replacement. She did have a meniscus repair surgery years ago. Had an MRI which showed a current meniscus tear . Recently had a cortisone shot, has been taking acetomenophen every day. Has been wearing a knee brace. Sees Dr. Olivo in the beginning of March to discuss possible surgery. 3 stairs to enter with 1 rail, single story once you enter. Does do 2 feet to a stair because of the pain. Does need environmental support to perform a floor transfer. Sit to stand is a problem, car transfers, standing for a longer period of time. Lives alone but adult daughter lives nearby. Personal Factors Other Personal Factors That May Effect DMII, kidney disease, hx Therapy/Recovery hysterectomy PT-OP-C Subjective Start: 03/03/22 11:57 Freq: Status: Active Protocol: Document 04/28/22 14:45 AMB (Rec: 04/29/22 13:11 AMB [id number]) OP-PT Subjective Patient Comments Patient [place] PT-OP-G Mobility & Gait Start: 03/03/22 12:00 Freq: Status: Active Protocol: Document 03/07/22 11:15 AMB (Rec: 03/08/22 16:02 AMB [id number]) OP Gait Assessment Comments Gait Comments DORA ambulates without AD with slightly antalgic gait especially when first moving and stiff PT-OP-K Range of Motion Start: 03/03/22 12:00 Freq: Status: Active Protocol: Document 04/28/22 15:01 AMB (Rec: 04/28/22 15:27 AMB [id number]) Knee Goniometric Range of Motion Knee Left Patient Position Supine Flexion Passive (degrees) 115 Extension Passive (degrees) 0 PT-OP-M Strength Start: 03/03/22 12:00 Freq: Status: Active Protocol: Document 04/28/22 15:01 AMB (Rec: 04/28/22 15:27 AMB [id number]) Knee Strength Knee Manual Muscle Testing Right Flexion (S2) 4+ Good+ Extension (L3) 4+ Good+ Left Flexion (S2) 4 Good Extension (L3) 3+ Fair+ Comments pain with extension PT-OP-Q Treatments Start: 03/03/22 11:57 Freq: Status: Active Protocol: Document 04/28/22 14:45 AMB (Rec: 04/29/22 13:11 AMB [id number]) Therapeutic Exercises Prone Exercises quad stretch Prone Exercise Name AROM as strap was painful Reps/Minutes 30x2 Sitting Exercises sit to stand Equipment Used orange ball between knees Reps/Minutes 5x Comments dec knee pain with ball Standing Exercises 1 Standing Exercise Name calf stretch Reps/Minutes 30x2 PT-OP-T Assessment and Plan Start: 03/03/22 11:57 Freq: Status: Active Protocol: Document 04/28/22 14:50 AMB (Rec: 04/28/22 15:00 AMB [id number]) Physical Therapy Assessment Goals Three Impairment Pain Short Term Goal (STG) MJ will move from sit to stand from a standard height chair without UE support without an increase in knee pain. STG Duration 4 weeks Wound Care Rn Goal (LTG) MJ will ascend and descend 4 stairs with an alternating gait pattern without an increase in pain. LTG Duration 8 weeks Two Impairment Strength Short Term Goal (STG) MJ amelia be independent and consistent with a HEP to improve her knee and hip strength and range. STG Duration 4 weeks One Impairment ROM Short Term Goal (STG) MJ will improve her knee flexion to 120 degrees actively. STG Duration 4 weeks Assessment Summary Assessment Pt reports pain is continuing. Going to get an injection. Has only been seen for 5 visits over the past 2 months due to scheduling issues, the holidays, pt getting covid, etc. Pt reports no real change in pain. ROM continues to be close to 0-115, with pain with resisted knee extension. Moving from sit to stand and stairs continues to be painful. Did encourage pt in body mechanics in the kitcen to avoid twisting the knee as this should help reduce pain. Pt only interested in a few more PT visits to finalize HEP and to continue to work on body mechanics. Physical Therapy Plan Frequency and Duration Frequency of Treatment 1x/Week Duration of treatment (weeks) 6 Plan of Care Start Date 04/28/22 Plan of Care End Date 06/09/22 Therapeutic Interventions Therapeutic Interventions Gait Training,Home Exercise Program,Joint Mobilizations, Manual Therapy,Neuromuscular Re-education,Self-Care/Home Management,Therapeutic Activities,Therapeutic Exercises Modalities Cold Pack/Ice Massage,Electric Stimulation,Hot Packs Next Visit Focus/Plan Next Note Type Treatment Note Next Visit Plan ASsess response to HEP modifications and additions and response to kinesiotape. Continue strengthening and ROM left knee. Assess knee brace if brings.
--- NOTE | 2022-05-03 14:30 | PT.OTN ---
Current Diagnoses Unilateral primary osteoarthritis, left knee (05/03/22) Pain in left knee (05/03/22) Physical Therapy Treatment Note PT-OP-A Visit Information Start: 03/03/22 11:57 Freq: Status: Active Protocol: Document 05/03/22 13:50 SP (Rec: 05/03/22 14:34 SP [id number]) Out-Patient Physical Therapy Visit Information Visit Information Visit Type Treatment Note Visit Start Time 13:50 Visit Stop Time 14:30 Total Visit Minutes 40 Visit Number 6 Number of ADMINISTRATIVE ASST Visits 1 PT-OP-B Current Condition Start: 03/03/22 11:57 Freq: Status: Active Protocol: Document 03/07/22 11:19 AMB (Rec: 03/07/22 11:56 AMB [id number]) Current Condition History of Current Condition Onset Date chronic Current Complaints L>R knee pain History of Current Condition DORA has had knee pain for some time but it has significantly worsened recently and she is considering getting a total knee replacement. She did have a meniscus repair surgery years ago. Had an MRI which showed a current meniscus tear . Recently had a cortisone shot, has been taking acetomenophen every day. Has been wearing a knee brace. Sees Dr. Olivo in the beginning of March to discuss possible surgery. 3 stairs to enter with 1 rail, single story once you enter. Does do 2 feet to a stair because of the pain. Does need environmental support to perform a floor transfer. Sit to stand is a problem, car transfers, standing for a longer period of time. Lives alone but adult daughter lives nearby. Personal Factors Other Personal Factors That May Effect DMII, kidney disease, hx Therapy/Recovery hysterectomy PT-OP-C Subjective Start: 03/03/22 11:57 Freq: Status: Active Protocol: Document 05/03/22 13:50 SP (Rec: 05/03/22 14:34 SP [id number]) OP-PT Subjective Patient Comments Patient Comments Pt reports wants to continue therapy, has an injection on same day as next (last scheduled appt with PT) and understands injections will be 1x/wk for 3 weeks and unsure if they want her to see therapy at same time. Wants to review how to K tape her L knee, seemed to help alot with stability/pain. PT-OP-G Mobility & Gait Start: 03/03/22 12:00 Freq: Status: Active Protocol: Document 03/07/22 11:15 AMB (Rec: 03/08/22 16:02 AMB [id number]) OP Gait Assessment Comments Gait Comments MJ ambulates without AD with slightly antalgic gait especially when first moving and stiff PT-OP-K Range of Motion Start: 03/03/22 12:00 Freq: Status: Active Protocol: Document 04/28/22 15:01 AMB (Rec: 04/28/22 15:27 AMB [id number]) Knee Goniometric Range of Motion Knee Left Patient Position Supine Flexion Passive (degrees) 115 Extension Passive (degrees) 0 PT-OP-M Strength Start: 03/03/22 12:00 Freq: Status: Active Protocol: Document 04/28/22 15:01 AMB (Rec: 04/28/22 15:27 AMB [id number]) Knee Strength Knee Manual Muscle Testing Right Flexion (S2) 4+ Good+ Extension (L3) 4+ Good+ Left Flexion (S2) 4 Good Extension (L3) 3+ Fair+ Comments pain with extension PT-OP-Q Treatments Start: 03/03/22 11:57 Freq: Status: Active Protocol: Document 05/03/22 13:50 SP (Rec: 05/03/22 14:34 SP [id number]) Therapeutic Exercises Supine Exercises HS stretch Supine Exercise Name supine floor BLE up against wall Side left Equipment Used added self Rolling w/ pin over quad Reps/Minutes 3 min- cued not hyperextension . Comments good feedback response HS Stretch w/strap Supine Exercise Name easier to sit close to wall and prop up LE on wall Comments good HS stretch Abduction Supine Exercise Name 05/03/22 to easy SLR Supine Exercise Name w/ TS Side left Resistance AROM Equipment Used cued opp LE bent foot floor Reps/Minutes 5SH x10 Comments no pain Sitting Exercises band walk Sitting Exercise Name added to HEP Equipment Used rail contact PRN Reps/Minutes 20 ft x3 Comments cued tall posturing, no SB, core/ hip abd fac, clear trial LE- good respons sit to stand Sitting Exercise Name added toHEP Resistance Tb #1 loop around thighs Reps/Minutes x10 Comments painfree, scoot front chair, feet back underneath, hip abd/ asc/desc HS stretch Sitting Exercise Name supine on floor buttock to wall best HS stretch response Side bilateral Reps/Minutes 2 min Comments pt stated good passive stretch to HS. SElf STM Sitting Exercise Name quad (performed supine during HS stretch) Equipment Used rolling pin Reps/Minutes 2 min Comments recommended seated for HS and calf as well. Manual Therapy Treatment Taping left knee Treatment Focus support, pain relief Type of Tape kinesiotape Comments 2 V strips: 1 from tib tub med and lateral patella to supra patella, 2nd from suprapatellar reg around patella distally- good feedback response throughout tx stability. PT-OP-T Assessment and Plan Start: 03/03/22 11:57 Freq: Status: Active Protocol: Document 05/03/22 13:50 SP (Rec: 05/03/22 14:34 SP [id number]) Physical Therapy Assessment Goals Three Impairment Pain Short Term Goal (STG) MJ will move from sit to stand from a standard height chair without UE support without an increase in knee pain. STG Duration 4 weeks Assisted Goal (LTG) MJ will ascend and descend 4 stairs with an alternating gait pattern without an increase in pain. LTG Duration 8 weeks Two Impairment Strength Short Term Goal (STG) MJ amelia be independent and consistent with a HEP to improve her knee and hip strength and range. STG Duration 4 weeks One Impairment ROM Short Term Goal (STG) MJ will improve her knee flexion to 120 degrees actively. STG Duration 4 weeks Assessment Summary Assessment Pt good feedback response to supine HEP review, added resisted hip abd STS and band walk with good hip abd effort painfree mobility to her knee. Good feedback response to self STMs using rolling pin to decreased muscle tension quad , HS, calf. Pt would benefit from continued therapy to progress strength/stability if knee, wishes to continue. Wants to wait to schedule more appts due to seeing ortho for injection to L knee and not sure if should be active with PT, 3 injections 1x/wk for 3 weeks. Suggested to call ortho for suggestions if continue appts with PT at same time and if so schedule further appts. Physical Therapy Plan Frequency and Duration Frequency of Treatment 1x/Week Duration of treatment (weeks) 6 Plan of Care Start Date 04/28/22 Plan of Care End Date 06/09/22 Therapeutic Interventions Therapeutic Interventions Gait Training,Home Exercise Program,Joint Mobilizations, Manual Therapy,Neuromuscular Re-education,Self-Care/Home Management,Therapeutic Activities,Therapeutic Exercises Modalities Cold Pack/Ice Massage,Electric Stimulation,Hot Packs Next Visit Focus/Plan Next Note Type Treatment Note Next Visit Plan Recheck if ortho ok with PT at same time injections of knee. Pt to call us back. Nex appt 05/17 same day as 1st injection . POC: Continue strengthening and ROM left knee. Assess knee brace if brings.
--- NOTE | 2022-05-10 15:47 | PT.OTN ---
Current Diagnoses Unilateral primary osteoarthritis, left knee (05/10/22) Pain in left knee (05/10/22) Physical Therapy Treatment Note PT-OP-A Visit Information Start: 03/03/22 11:57 Freq: Status: Active Protocol: Document 05/10/22 13:01 AMB (Rec: 05/10/22 13:49 AMB [id number]) Out-Patient Physical Therapy Visit Information Visit Information Visit Type Treatment Note Visit Start Time 13:00 Visit Stop Time 13:45 Total Visit Minutes 45 Visit Number 7 PT-OP-B Current Condition Start: 03/03/22 11:57 Freq: Status: Active Protocol: Document 03/07/22 11:19 AMB (Rec: 03/07/22 11:56 AMB [id number]) Current Condition History of Current Condition Onset Date chronic Current Complaints L>R knee pain History of Current Condition DORA has had knee pain for some time but it has significantly worsened recently and she is considering getting a total knee replacement. She did have a meniscus repair surgery years ago. Had an MRI which showed a current meniscus tear . Recently had a cortisone shot, has been taking acetomenophen every day. Has been wearing a knee brace. Sees Dr. Olivo in the beginning of March to discuss possible surgery. 3 stairs to enter with 1 rail, single story once you enter. Does do 2 feet to a stair because of the pain. Does need environmental support to perform a floor transfer. Sit to stand is a problem, car transfers, standing for a longer period of time. Lives alone but adult daughter lives nearby. Personal Factors Other Personal Factors That May Effect DMII, kidney disease, hx Therapy/Recovery hysterectomy PT-OP-C Subjective Start: 03/03/22 11:57 Freq: Status: Active Protocol: Document 05/10/22 13:01 AMB (Rec: 05/10/22 13:49 AMB [id number]) OP-PT Subjective Patient Comments Patient Comments Pt does have a hot tub and has been doing some of her exercises in that, but that is going well. PT-OP-G Mobility & Gait Start: 03/03/22 12:00 Freq: Status: Active Protocol: Document 03/07/22 11:15 AMB (Rec: 03/08/22 16:02 AMB [id number]) OP Gait Assessment Comments Gait Comments MJ ambulates without AD with slightly antalgic gait especially when first moving and stiff PT-OP-K Range of Motion Start: 03/03/22 12:00 Freq: Status: Active Protocol: Document 04/28/22 15:01 AMB (Rec: 04/28/22 15:27 AMB [id number]) Knee Goniometric Range of Motion Knee Left Patient Position Supine Flexion Passive (degrees) 115 Extension Passive (degrees) 0 PT-OP-M Strength Start: 03/03/22 12:00 Freq: Status: Active Protocol: Document 04/28/22 15:01 AMB (Rec: 04/28/22 15:27 AMB [id number]) Knee Strength Knee Manual Muscle Testing Right Flexion (S2) 4+ Good+ Extension (L3) 4+ Good+ Left Flexion (S2) 4 Good Extension (L3) 3+ Fair+ Comments pain with extension PT-OP-Q Treatments Start: 03/03/22 11:57 Freq: Status: Active Protocol: Document 05/10/22 13:00 AMB (Rec: 05/10/22 15:42 AMB [id number]) Therapeutic Exercises Supine Exercises HS stretch Supine Exercise Name supine floor BLE up against wall Side left Reps/Minutes 3 min- cued not hyperextension . Comments good feedback response Quad Set Reps/Minutes 1x10 3 sec hold Comments pt wanted to check to make sure she was doing it right heel slides Side left Reps/Minutes 1x20 Comments Cues for fully extended knee Sitting Exercises band walk Sitting Exercise Name reviewed HEP Equipment Used rail contact PRN Reps/Minutes 20 ft x3 Comments cued tall posturing, no SB, core/ hip abd fac, clear trial LE- good respons sit to stand Sitting Exercise Name reviewed HEP Resistance Tb #1 loop around thighs Reps/Minutes 5 Comments painfree, scoot front chair, feet back underneath, hip abd/ asc/desc PT-OP-T Assessment and Plan Start: 03/03/22 11:57 Freq: Status: Active Protocol: Document 05/10/22 13:01 AMB (Rec: 05/10/22 13:49 AMB [id number]) Physical Therapy Assessment Goals Three Impairment Pain Short Term Goal (STG) MJ will move from sit to stand from a standard height chair without UE support without an increase in knee pain. STG Duration NOT MET Spike Maker Goal (LTG) MJ will ascend and descend 4 stairs with an alternating gait pattern without an increase in pain. LTG Duration NOT MET Two Impairment Strength Short Term Goal (STG) DORA amelia be independent and consistent with a HEP to improve her knee and hip strength and range. STG Duration MET One Impairment ROM Short Term Goal (STG) DORA will improve her knee flexion to 120 degrees actively. STG Duration PROGRESS MADE Assessment Summary Assessment This is DORA's last visit as she is going to be getting a knee injection in a week and will not be doing PT while she's getting the shots. Her MD said she could return in July with a new referral if needed . Reviewed HEP. Pt may need to do PT for her neck/RUE pain , she is getting a nerve conduction test in May for that. She was encouraged to continue with her HEP and brought in her handouts today, excess/duplicate exercises were removed. She continues to have pain especially with sit to stand and stairs. Physical Therapy Plan Frequency and Duration Frequency of Treatment 1x/Week Duration of treatment (weeks) 6 Plan of Care Start Date 04/28/22 Plan of Care End Date 06/09/22 Therapeutic Interventions Therapeutic Interventions Gait Training,Home Exercise Program,Joint Mobilizations, Manual Therapy,Neuromuscular Re-education,Self-Care/Home Management,Therapeutic Activities,Therapeutic Exercises Modalities Cold Pack/Ice Massage,Electric Stimulation,Hot Packs Discharge Physical Therapy Discharge Reasons Patient Request
== END 2022-05-11 13:24 | disposition home or self-care (01) ==
LOC: PHYS 13:00
PROVIDERS: Family Provider Family Medicine; PCP Family Medicine; Referring Provider Family Medicine; Visit Provider Family Medicine
DX: M17.12 Unilateral primary osteoarthritis, left knee (principal); M25.562 Pain in left knee
CPT/HCPCS: 97110; 97140; 97161; 97535

== ENCOUNTER → 2022-05-16 14:36 | Outpatient (CLI) | payer MEDICARE, MEDICAID, SELFPAY ==
[2019-01-05 10:35] VITALS: PULSE 57; RESP 16; O2SAT 93
[2021-07-21 18:23] VITALS: BMI 35.5
[2022-05-16 15:04] LABS: Hematocrit 37.7 % (36-46); Hemoglobin 12.6 g/dL (12.0-16.0)
[2022-05-16 15:17] LABS: Blood Urea Nitrogen 26 mg/dL (7-17); Calcium 8.5 mg/dL (8.4-10.2); Carbon Dioxide 29 mmol/L (22-32); Chloride 103 mmol/L (98-107); Estimated Glomerular Filt Rate 43 mL/min (>60); Glucose 228 mg/dL (80-110); HEMOLYSIS < 15 (0-50); Potassium 4.2 mmol/L (3.4-5.1); Sodium 141 mmol/L (137-145)
[2022-05-16 15:32] LABS: Protein (Total) Urine Random 23 mg/dL (0-12); Protein Creatinine Ratio Urine 0.22 GRAM/24H
[2022-05-19 10:49] LABS: Parathyroid Hormone Int 80 pg/mL (15-65)
== END ==
PROVIDERS: Family Provider Family Medicine; PCP Family Medicine; Referring Provider Student in an Organized Health Care Education/Training Program; Visit Provider Student in an Organized Health Care Education/Training Program
DX: N05.9 Unspecified nephritic syndrome with unspecified morphologic changes (principal); D64.9 Anemia, unspecified; R80.9 Proteinuria, unspecified; N25.81 Secondary hyperparathyroidism of renal origin
CPT/HCPCS: 36415; 80048; 82570; 83970; 84156; 85014; 85018

== ENCOUNTER → 2022-06-01 14:14 | Outpatient (CLI) | payer MEDICARE, MEDICAID, SELFPAY ==
[2019-01-05 10:35] VITALS: PULSE 57; RESP 16; O2SAT 93
[2021-07-21 18:23] VITALS: BMI 35.5
== END ==
PROVIDERS: Family Provider Family Medicine; PCP Family Medicine; Referring Provider Family Medicine; Visit Provider Family Medicine
DX: M79.641 Pain in right hand (principal)
CPT/HCPCS: 95886; 95910

== ENCOUNTER → 2022-06-15 15:15 | Outpatient (CLI) | payer MEDICARE, MEDICAID, SELFPAY ==
[2019-01-05 10:35] VITALS: PULSE 57; RESP 16; O2SAT 93
[2021-07-21 18:23] VITALS: BMI 35.5
--- NOTE | 2022-06-15 15:16 | DI.MG.S_ITS ---
BILATERAL DIGITAL SCREENING MAMMOGRAM 3D/2D WITH CAD: 06/15/2022 CLINICAL: Routine screening. Comparison is made to exams dated: 05/01/2020 mammogram, 03/28/2019 mammogram, and 07/05/2015 mammogram - [facility]. There are scattered areas of fibroglandular density in both breasts (category b / 25%-50% glandular tissue). Current study was also evaluated with a Computer Aided Detection (CAD) system. There are benign vascular calcifications in both breasts. No significant masses, calcifications, or other findings are seen in either breast. There has been no significant interval change. IMPRESSION: BENIGN There is no mammographic evidence of malignancy. A 1 year screening mammogram is recommended. Based on the Tyrer Cuzick model (a risk assessment model) the patient's lifetime risk is 2.5% and her 10 year risk is 0.0%. According to the ACR, ACS, and NCCN guidelines, an annual breast MRI exam along with mammogram is recommended if the patient's lifetime risk is 20% or greater. This exam was interpreted at Station ID: [id number]. NOTE: For mammograms, a report in lay terms will be sent to the patient. Approximately 15% of breast malignancies will not be visualized mammographically. In the management of a palpable breast mass, a negative mammogram must not discourage biopsy of a clinically suspicious lesion. Electronically Signed By: Yosi harris/yanni:06/16/2022 09:54:59 letter sent: Normal Exam ACR BI-RADS Category 2: Benign Finding(s) [id number]
== END ==
PROVIDERS: Family Provider Family Medicine; PCP Family Medicine; Referring Provider Family Medicine; Visit Provider Family Medicine
DX: Z12.31 Encounter for screening mammogram for malignant neoplasm of breast (principal)
CPT/HCPCS: 77063; 77067

== ENCOUNTER 2022-08-28 14:11 | Emergency (ER) | payer MEDICARE, MEDICAID, SELFPAY ==
[2019-01-05 10:35] VITALS: PULSE 57; RESP 16; O2SAT 93
[2021-07-21 18:23] VITALS: BMI 35.5
[2022-08-28] VITALS (38 sets, daily range): BP systolic 90–197; BP diastolic 50–113; PULSE 80–109; RESP 17–49; TEMP 36.4; O2SAT 89–95
--- NOTE | 2022-08-28 14:30 | DI.CT.S_ITS ---
PROCEDURE: CT HEAD/BRAIN WO CON INDICATIONS: altered mental status TECHNIQUE: Noncontrast 4.5 mm thick angled axial sections acquired from the foramen magnum to the vertex, with coronal and sagittal reformats. For radiation dose reduction, the following was used: automated exposure control, adjustment of mA and/or kV according to patient size. COMPARISON: [facility], CT, CT HEAD/BRAIN WO CON, 01/05/2019, 21:02. FINDINGS: Image quality: Excellent. CSF spaces: Basal cisterns are patent. No extra-axial fluid collections. The ventricles are symmetric in size and shape. Brain: No intracranial bleeds or masses. There is cerebral volume loss for age, with resultant ventricular and sulcal prominence. There are periventricular and deep white matter chronic small vessel ischemic changes. There is intracranial internal carotid artery atherosclerosis. Skull and face: Calvarium and visualized facial bones appear intact, without suspicious lesions. Sinuses: Visualized sinuses and mastoids are clear. IMPRESSION: 1. No acute intracranial process. 2. Moderate atrophy and chronic microvascular ischemic changes. Dictated by: Jessie Price M.D. on 08/28/2022 at 14:50 Approved by: Jessie Price M.D. on 08/28/2022 at 14:51
--- NOTE | 2022-08-28 14:31 | DI.RAD.S_ITS ---
PROCEDURE: XR CHEST 1V INDICATIONS: short of breath TECHNIQUE: One view of the chest was acquired. COMPARISON: [facility], CR, XR CHEST 1V, 01/04/2019, 10:06. FINDINGS: Surgical changes and devices: Cholecystectomy clips. Lungs and pleura: Mild increased vascularity. Mediastinum: Mediastinal contours appear normal. Heart size is enlarged. Bones and chest wall: No suspicious bony lesions. Overlying soft tissues appear unremarkable. IMPRESSION: Increased vascularity suggestive of edema. Dictated by: Jessie Price M.D. on 08/28/2022 at 15:19 Approved by: Jessie Price M.D. on 08/28/2022 at 15:19
[2022-08-28] MEDS: methylPREDNISolone 125 MG/2 ML VIAL IV (14:38)
--- NOTE | 2022-08-28 14:48 | ED_ITS ---
HPI - Altered Mental Status General Chief Complaint: Altered Mental Status Stated Complaint: anaphalaxis Time Seen by Provider: 08/28/22 14:30 Source: family and EMS Mode of arrival: EMS History of Present Illness HPI narrative: Patient is a 77-year-old female history of hyperparathyroidism, type 2 diabetes, chronic kidney disease stage 3 presents today with possible anaphylaxis versus stroke. She reports last known well at 1:00 p.m.. Daughter was with her she does take marijuana regularly for her chronic ongoing pain. She does not like taking opiates. Tried a new syringe combined with CBD, THC and CBG, she took 1 small dab full started feeling sleepy about an hour later daughter was trying to get her up to her room in the noticed that she was having some difficulty breathing possibly. She is previously had anaphylactic reaction due to lisinopril I question if this was more angio edema nonetheless daughter gave her an epinephrine. EMS reports that she did have significant and obvious edema in the mouth and was extremely confused. She received a 2nd dose of epinephrine breathing improved there was never any rash. Now patient seems to be staring off into space minimally following commands no obvious deficits or arlene-neglect no facial droop. Not really answering questions. Related Data Home Medications Medication Instructions Recorded Confirmed Accu-Chek Advantage Meter 0 dev topical TID ##0 01/03/19 05/03/22 insulin glargine 100 unit/mL 25 unit DAILY 05/03/22 05/03/22 subcutaneous solution (Lantus U-100 Insulin) Previous Rx's Medication Instructions Recorded insulin syringe-needle U-100 0.5 #100 ea 07/05/20 mL 31 gauge x 5/16 (Advocate Syringes) lancets (Accu-Chek Softclix #300 ea 05/16/21 Lancets) losartan 25 mg tablet 25 mg PO DAILY #90 tabs 11/22/21 estradiol 0.01% (0.1 mg/gram) 1 g vaginal 3XW #42.5 grams 11/25/21 vaginal cream glipizide 2.5 mg tablet, extended See Rx Instructions .Route 02/16/22 release 24 hr .COMPLEX #90 tabs omeprazole 20 mg capsule,delayed See Rx Instructions .Route 02/16/22 release .COMPLEX #90 caps blood sugar diagnostic (Accu-Chek #300 strips 04/25/22 Guide test strips) gabapentin 300 mg capsule 300 mg PO BEDTIME #30 caps 05/01/22 epinephrine 0.3 mg/0.3 mL 0.3 ml IM Q5-15M PRN anaphylaxis 05/23/22 injection, auto-injector #2 ea prednisone 20 mg tablet See Rx Instructions PO DAILY #90 06/19/22 tabs nirmatrelvir 150 mg-ritonavir 100 See Rx Instructions PO PER PKG DIR 06/27/22 mg tablets in a dose pack (EUA) #20 ea (Paxlovid) atorvastatin 20 mg tablet See Rx Instructions .Route 07/06/22 .COMPLEX #100 tabs metformin 500 mg tablet See Rx Instructions .Route 08/24/22 .COMPLEX #60 tabs epinephrine 0.3 mg/0.3 mL 0.3 mg (0.3 mL) IM Q5-15M PRN 08/28/22 injection, auto-injector anaphylaxis #2 ea Allergies Allergy/AdvReac Type Severity Reaction Status Date / Time lisinopril Allergy Severe Swelling Verified 08/28/22 14:36 of Lip/Tongue/Throat Iodinated Contrast Media Allergy Verified 08/28/22 14:36 Review of Systems Review of Systems ROS Unobtainable: All systems reviewed & are unremarkable except as noted in HPI and below Patient History Medical History Abnormal Pap smear of cervix Anemia in chronic kidney disease Angioedema Chronic low back pain with sciatica Crohn's disease Diabetes mellitus Duodenal ulcer GERD (gastroesophageal reflux disease) Grade II diastolic dysfunction Hyperlipidemia Hyperparathyroidism Surgical History History of left oophorectomy Status post cone biopsy of cervix Status post laparoscopic cholecystectomy Family History Father Diabetes mellitus Social History household members: family and none Smoking Status: Former smoker alcohol intake: current eating out: rarely or never Type(s) of exercise: walking Smoking Status: Former smoker alcohol intake frequency: a few times a week Substance Use Type: marijuana Exam Initial Vital Signs Initial Vital Signs: Vital Signs Temperature 97.5 F L 08/28/22 14:12 Pulse Rate 107 H 08/28/22 14:12 Respiratory Rate 26 H 08/28/22 14:12 Blood Pressure 197/81 H 08/28/22 14:12 Pulse Oximetry 92 08/28/22 14:12 Oxygen Delivery Method Room Air 08/28/22 14:12 GENERAL: 77-year-old female no acute respiratory distress staring off into space following some commands HEENT: Head atraumatic,EOMI, pupils reactive, face symmetric, CARDIOVASCULAR: Regular rate and rhythm without murmurs, rubs or gallops. RESPIRATORY: Breath sounds equal bilaterally, no wheezes rales or rhonchi. No stridor ABDOMEN: Soft, nontender. Normoactive bowel sounds all 4 quadrants. No guardin g or rebound. EXTREMITIES: Normal range of motion, no clubbing or edema. Neurovascularly intact NEUROLOGICAL: Alert and oriented x0. No facial droop piece cutter strength is equal all extremities immediately drift not able to comprehend [id number] SKIN: Warm, dry, no laceration, no petechiae, no rashes or lesions. Course Orders Ordered: Discontinued Medications Sodium Chloride (Normal Saline 0.9%) 1,000 mls @ 150 mls/hr IV CONT SHIKHA Last Infusion: 08/28/22 20:05 Dose: 0 mls/hr Documented By: Admin: 08/28/22 15:21 Dose: 150 mls/hr Documented By: CAIT Methylprednisolone (Methylprednisolone 125 Mg/2 Ml Vial) 125 mg IV NOW ONE Stop: 08/28/22 14:31 Last Admin: 08/28/22 14:38 Dose: 125 mg Documented By: CAIT Vital Signs Vital signs: Vital Signs - 8 hr 08/28/22 14:12 08/28/22 14:18 08/28/22 14:20 Temperature 97.5 F L Pulse Rate 107 H 106 H 106 H Respiratory Rate 26 H 45 H 37 H Blood Pressure 197/81 H Pulse Oximetry 92 92 92 Oxygen Delivery Method Room Air 08/28/22 14:20 08/28/22 14:30 08/28/22 14:30 Temperature Pulse Rate 102 H Respiratory Rate 44 H Blood Pressure 178/78 H 154/70 H Pulse Oximetry 91 Oxygen Delivery Method Room Air 08/28/22 14:45 08/28/22 14:45 08/28/22 14:50 Temperature Pulse Rate 103 H 102 H Respiratory Rate 17 46 H Blood Pressure 147/65 H Pulse Oximetry 95 94 Oxygen Delivery Method 08/28/22 14:50 08/28/22 15:00 08/28/22 15:00 Temperature Pulse Rate 103 H Respiratory Rate 49 H Blood Pressure 144/67 H 143/113 H Pulse Oximetry 92 Oxygen Delivery Method 08/28/22 15:11 08/28/22 15:11 08/28/22 15:15 Temperature Pulse Rate 105 H 104 H Respiratory Rate 46 H 41 H Blood Pressure 144/63 H Pulse Oximetry 92 92 Oxygen Delivery Method 08/28/22 15:20 08/28/22 15:20 08/28/22 15:30 Temperature Pulse Rate 109 H Respiratory Rate 30 H Blood Pressure 137/64 116/58 L Pulse Oximetry 92 Oxygen Delivery Method 08/28/22 15:30 08/28/22 15:40 08/28/22 15:40 Temperature Pulse Rate 105 H 105 H Respiratory Rate 44 H 21 Blood Pressure 118/60 Pulse Oximetry 92 91 Oxygen Delivery Method 08/28/22 15:50 08/28/22 16:00 08/28/22 16:00 Temperature Pulse Rate 102 H Respiratory Rate 43 H Blood Pressure 108/51 L 104/55 L Pulse Oximetry 92 Oxygen Delivery Method 08/28/22 16:10 08/28/22 16:10 08/28/22 16:15 Temperature Pulse Rate 100 H 98 H Respiratory Rate 43 H 33 H Blood Pressure 104/54 L Pulse Oximetry Oxygen Delivery Method 08/28/22 16:20 08/28/22 16:20 08/28/22 16:30 Temperature Pulse Rate 101 H Respiratory Rate 26 H Blood Pressure 101/51 L 94/55 L Pulse Oximetry Oxygen Delivery Method 08/28/22 16:30 08/28/22 16:40 08/28/22 16:40 Temperature Pulse Rate 97 H 93 H Respiratory Rate 41 H 22 Blood Pressure 90/54 L Pulse Oximetry 91 90 L Oxygen Delivery Method 08/28/22 16:45 08/28/22 16:45 08/28/22 16:50 Temperature Pulse Rate 92 H 92 H Respiratory Rate 42 H 42 H Blood Pressure 101/55 L Pulse Oximetry Oxygen Delivery Method 08/28/22 16:50 08/28/22 16:55 08/28/22 16:55 Temperature Pulse Rate 91 H Respiratory Rate 36 H Blood Pressure 98/50 L 102/52 L Pulse Oximetry Oxygen Delivery Method 08/28/22 17:00 08/28/22 17:00 08/28/22 17:05 Temperature Pulse Rate 91 H Respiratory Rate 22 Blood Pressure 102/50 L 108/55 L Pulse Oximetry 89 L Oxygen Delivery Method 08/28/22 17:05 08/28/22 17:10 08/28/22 17:10 Temperature Pulse Rate 91 H 92 H Respiratory Rate 42 H 42 H Blood Pressure 109/53 L Pulse Oximetry 94 92 Oxygen Delivery Method 08/28/22 17:15 08/28/22 17:15 08/28/22 17:20 Temperature Pulse Rate 93 H 92 H Respiratory Rate 32 H 33 H Blood Pressure 111/53 L Pulse Oximetry 93 91 Oxygen Delivery Method 08/28/22 17:20 08/28/22 17:25 08/28/22 17:25 Temperature Pulse Rate 92 H Respiratory Rate 31 H Blood Pressure 99/52 L 109/56 L Pulse Oximetry 92 Oxygen Delivery Method 08/28/22 17:30 08/28/22 17:30 08/28/22 17:35 Temperature Pulse Rate 93 H Respiratory Rate 42 H Blood Pressure 113/56 L 110/59 L Pulse Oximetry 91 Oxygen Delivery Method 08/28/22 17:35 08/28/22 17:40 08/28/22 17:40 Temperature Pulse Rate 93 H 92 H Respiratory Rate 39 H 26 H Blood Pressure 116/58 L Pulse Oximetry 92 93 Oxygen Delivery Method 08/28/22 17:45 08/28/22 17:45 08/28/22 17:50 Temperature Pulse Rate 88 87 Respiratory Rate 21 22 Blood Pressure 109/56 L Pulse Oximetry 91 Oxygen Delivery Method 08/28/22 17:50 08/28/22 17:55 08/28/22 17:55 Temperature Pulse Rate 85 Respiratory Rate 21 Blood Pressure 106/56 L 103/55 L Pulse Oximetry 91 Oxygen Delivery Method 08/28/22 18:00 08/28/22 18:00 08/28/22 18:05 Temperature Pulse Rate 85 84 Respiratory Rate 22 22 Blood Pressure 100/55 L Pulse Oximetry 90 L 91 Oxygen Delivery Method 08/28/22 18:05 08/28/22 18:10 08/28/22 18:10 Temperature Pulse Rate 83 Respiratory Rate 22 Blood Pressure 100/55 L 100/56 L Pulse Oximetry Oxygen Delivery Method 08/28/22 18:15 08/28/22 18:15 Temperature Pulse Rate 80 Respiratory Rate 21 Blood Pressure 109/53 L Pulse Oximetry 91 Oxygen Delivery Method MDM - Altered Mental Status Lab Data 08/28/22 14:15 08/28/22 14:15 Labs: Lab Results 08/28/22 08/28/22 08/28/22 Range/Units 14:15 14:15 14:15 WBC 10.4 (4.5-11.0) X10^3/uL RBC 4.50 (4.0-5.2) X10^6/uL Hgb 12.3 (12.0-16.0) g/dL Hct 36.9 (36-46) % MCV 81.9 (80-100) fL MCH 27.4 (26-34) PG MCHC 33.4 (30-36) % RDW 14.1 (11.6-14.8) % Plt Count 284 (150-400) X10^3/uL Neut % (Auto) 60.0 (50-75) % Lymph % (Auto) 32.7 (25-40) % [place] % (Auto) 6.2 (3-14) % Eos % (Auto) 0.7 L (2-4) % Baso % (Auto) 0.4 (0-2) % Neut # (Auto) 6200 (6926-2007) /uL Lymph # (Auto) 3400 (0319-3006) /uL [place] # (Auto) 600 (0-900) /uL Eos # (Auto) 100 (0-450) /uL Baso # (Auto) 0 (0-100) /uL Sodium 139 (137-145) mmol/L Potassium 3.5 (3.4-5.1) mmol/L Chloride 102 (98-107) mmol/L Carbon Dioxide 26 (22-32) mmol/L BUN 22 H (7-17) mg/dL Creatinine 1.46 H (0.52-1.04) mg/dL Estimated GFR 37 L (>60) mL/min BUN/Creatinine Ratio 15.1 (6-22) Glucose 184 H (80-110) mg/dL Calcium 9.3 (8.4-10.2) mg/dL Total Bilirubin 0.6 (0.2-1.3) mg/dL AST 46 H (14-36) IU/L ALT 63 H (<35) IU/L Alkaline Phosphatase 142 H (38-126) U/L Total Creatine Kinase 58 (30-135) U/L CK-MB (CK-2) TNP CK-MB (CK-2) Rel Index TNP Troponin I < 0.012 (0.01-0.034) ng/mL NT-Pro-B Natriuret Pep 222 (<450) pg/mL Total Protein 7.9 (6.3-8.2) g/dL Albumin 4.3 (3.5-5.0) g/dL Globulin 3.6 (1.7-4.1) g/dL Albumin/Globulin Ratio 1.2 (1.0-2.8) Lipase 98 (23-300) U/L Salicylates < 1.0 (<20) mg/dL Acetaminophen < 10 (10-30) ug/mL Imaging Data CT scan - head: Radiologist's Impression: PROCEDURE:? CT HEAD/BRAIN WO CON ? INDICATIONS:? altered mental status ? TECHNIQUE:? Noncontrast 4.5 mm thick angled axial sections acquired from the foramen magnum to the vertex, with coronal and sagittal reformats.? For radiation dose reduction, the following was used:? automated exposure control, adjustment of mA and/or kV according to patient size.? ? COMPARISON:? [facility], CT, CT HEAD/BRAIN WO CON, 01/05/2019, 21:02. ? FINDINGS:? Image quality:? Excellent.? ? CSF spaces:? Basal cisterns are patent.? No extra-axial fluid collections.? The ventricles are symmetric in size and shape.? ? Brain:? No intracranial bleeds or masses.? There is cerebral volume loss for age, with resultant ventricular and sulcal prominence.? There are periventricular and deep white matter chronic small vessel ischemic changes.? There is intracranial internal carotid artery atherosclerosis.? ? Skull and face:? Calvarium and visualized facial bones appear intact, without suspicious lesions.? ? Sinuses:? Visualized sinuses and mastoids are clear.? ? IMPRESSION:? ? 1. No acute intracranial process. ? 2. Moderate atrophy and chronic microvascular ischemic changes. ? ? ? Dictated by: Jessie Price M.D. on 08/28/2022 at 14:50 ? ? Chest x-ray: Radiologist's Impression: PROCEDURE:? XR CHEST 1V ? INDICATIONS:? short of breath ? TECHNIQUE:? One view of the chest was acquired.? ? COMPARISON:? [facility], CR, XR CHEST 1V, 01/04/2019, 10:06. ? FINDINGS:? ? Surgical changes and devices:? Cholecystectomy clips. ? Lungs and pleura:? Mild increased vascularity. ? Mediastinum:? Mediastinal contours appear normal.? Heart size is enlarged. ? Bones and chest wall:? No suspicious bony lesions.? Overlying soft tissues appear unremarkable.? ? IMPRESSION:? Increased vascularity suggestive of edema. ? ? Dictated by: Jessie Price M.D. on 08/28/2022 at 15:19 ? ? Approved by: Jessie Price M.D. on 08/28/2022 at 15:19? ECG Data Interpretation: Normal sinus rhythm rate 107 AZ interval 130 QRS [address] elevation or depression MDM Narrative Medical decision making narrative: Patient is 77-year-old female presenting as anaphylaxis versus CVA. Appreciate any obvious focal deficits for CVA she is no facial droop all extremities are equally weak and she is equally moving them all. No obvious sign of anaphylaxis she has no stridor tongue swelling lip swelling hives or other evidence of anaphylaxis she is also received 2 doses of epinephrine and Benadryl prior to arrival. She is given dose of Solu-Medrol for completeness sake. I suspect th at she is reacting to new CBG. Head CT is negative blood work is overall reassuring. She is allergic and anaphylactic to iodine this point she is already been treated for anaphylaxis I do not have a high suspicion for large vessel occlusion no need for CT angio head and neck. I actually suspect that she is reacting to the new THC/CBD/CBG. I do not see any evidence of anaphylaxis, although EMS did this is now resolved. She has been sleeping and resting comfortably. I re-evaluated awake alert able to speak move her extremities. No suspicion for stroke. Discharge Plan Departure Patient Disposition: Home Clinical Impression: Accidental marijuana overdose Instructions: DI for Drug Overdose in Adults Activity Restrictions/Additional Instructions: *You have been diagnosed with probable THC CBD CBG *What to do: At this time I recommend not using this again. I have refilled her epinephrine. You may have had allergic reaction to this as well *Continue to take medications as directed Epinephrine take as directed, Sent to [facility] *Follow up with your primary care provider in 2-3 days or call [phone] *Return to ER if you should have increased difficulty breathing confusion or any new, worsening or concerning symptoms Prescriptions: New epinephrine 0.3 mg/0.3 mL auto-injector 0.3 mg IM Q5-15M PRN (Reason: anaphylaxis) Qty: 2 0RF Rx Instructions: do not exceed 3 doses per episode No Action (DME) insulin syringe-needle U-100 [Advocate Syringes] 0.5 mL 31 gauge x 5/16 syringe See Rx Instructions .ROUTE .MEDSUPPLY Qty: 100 3RF Rx Instructions: As directed (DME) lancets [Accu-Chek Softclix Lancets] Misc See Rx Instructions .ROUTE .COMPLEX Qty: 300 3RF Dose Instruction: USE DIRECTED Rx Instructions: USE DIRECTED estradiol 0.01 % (0.1 mg/gram) cream 1 g vaginal 3XW Qty: 42.5 12RF Rx Instructions: 1 gm PV HS 3x weekly omeprazole 20 mg capsule,delayed release(DR/EC) See Rx Instructions .ROUTE .COMPLEX Qty: 90 3RF Dose Instruction: TAKE 1 CAPSULE BY MOUTH DAILY Rx Instructions: TAKE 1 CAPSULE BY MOUTH DAILY glipizide 2.5 mg tablet extended release 24hr See Rx Instructions .ROUTE .COMPLEX Qty: 90 3RF Dose Instruction: TAKE 1 TABLET BY MOUTH DAILY Rx Instructions: TAKE 1 TABLET BY MOUTH DAILY (DME) Accu-Chek Guide test strips Strip See Rx Instructions .ROUTE .COMPLEX Qty: 300 3RF Dose Instruction: USE DIRECTED Rx Instructions: USE DIRECTED epinephrine 0.3 mg/0.3 mL auto-injector 0.3 ml IM Q5-15M PRN (Reason: anaphylaxis) Qty: 2 0RF Rx Instructions: do not exceed 3 doses per episode prednisone 20 mg tablet See Rx Instructions PO DAILY Qty: 90 0RF Rx Instructions: Take 3 tabs by mouth daily for 4 days, then take 2 tabs by mouth daily for 4 days, then take 1 tab daily thereafter Paxlovid (EUA) 150-100 mg tablets,dose pack See Rx Instructions PO PER PKG DIR Qty: 20 0RF Rx Instructions: PO PER PKG DIR atorvastatin 20 mg tablet See Rx Instructions .ROUTE .COMPLEX Qty: 100 2RF Dose Instruction: TAKE 1 TABLET BY MOUTH IN THE EVENING Rx Instructions: TAKE 1 TABLET BY MOUTH IN THE EVENING metformin 500 mg tablet See Rx Instructions .ROUTE .COMPLEX Qty: 60 11RF Dose Instruction: TAKE 1 TABLET BY MOUTH TWICE DAILY Rx Instructions: TAKE 1 TABLET BY MOUTH TWICE DAILY gabapentin 300 mg capsule 300 mg PO BEDTIME Qty: 30 1RF losartan 25 mg tablet 25 mg PO DAILY Qty: 90 1RF Accu-Chek Advantage Meter 0 dev topical TID Qty: 0 insulin glargine [Lantus U-100 Insulin] 100 unit/mL solution 25 unit DAILY Patient Comments: pt states taking 25 units per day Referrals: Jovan Nichols MD [Primary Care Provider] - Stand Alone Forms: Patient Portal/API
[2022-08-28 15:02] LABS: Add Manual Diff / Slide Review NO; Basophils Absolute Auto 0 /uL (0-100); Basophils Percent Auto 0.4 % (0-2); Eosinophils Absolute Auto 100 /uL (0-450); Eosinophils Percent Auto 0.7 % (2-4); Hematocrit 36.9 % (36-46); Hemoglobin 12.3 g/dL (12.0-16.0); Lymphocytes Absolute Auto 3400 /uL (1100-4500); Lymphocytes Percent Auto 32.7 % (25-40); Mean Corpuscular HGB Conc 33.4 % (30-36); Mean Corpuscular Hemoglobin 27.4 PG (26-34); Mean Corpuscular Volume 81.9 fL (80-100); Monocytes Absolute Auto 600 /uL (0-900); Monocytes Percent Auto 6.2 % (3-14); Neutrophils Absolute Auto 6200 /uL (1500-7000); Platelet Count 284 X10^3/uL (150-400); Red Cell Distribution Width 14.1 % (11.6-14.8); White Blood Cell Count 10.4 X10^3/uL (4.5-11.0)
[2022-08-28 15:06] LABS: Acetaminophen < 10 ug/mL (10-30); Salicylate < 1.0 mg/dL (<20)
[2022-08-28 15:07] LABS: Alanine Aminotransferase 63 IU/L (<35); Albumin 4.3 g/dL (3.5-5.0); Albumin Globulin Ratio 1.2 (1.0-2.8); Alkaline Phosphatase 142 U/L (38-126); Aspartate Aminotransferase 46 IU/L (14-36); BUN Creatinine Ratio 15.1 (6-22); Bilirubin Total 0.6 mg/dL (0.2-1.3); Blood Urea Nitrogen 22 mg/dL (7-17); Calcium 9.3 mg/dL (8.4-10.2); Carbon Dioxide 26 mmol/L (22-32); Chloride 102 mmol/L (98-107); Creatine Kinase 58 U/L (30-135); Estimated Glomerular Filt Rate 37 mL/min (>60); Globulin 3.6 g/dL (1.7-4.1); Glucose 184 mg/dL (80-110); HEMOLYSIS < 15 (0-50); Lipase 98 U/L (23-300); Potassium 3.5 mmol/L (3.4-5.1); Sodium 139 mmol/L (137-145); Total Protein 7.9 g/dL (6.3-8.2)
[2022-08-28 15:19] LABS: NT-proBNP (BNP-Adult 18+) 222 pg/mL (<450); Troponin I < 0.012 ng/mL (0.01-0.034)
[2022-08-28] MEDS: SODIUM CHLORIDE 0.9% 1,000 ML 150 ML IV (15:21)
== END 2022-08-28 20:09 | disposition home or self-care (01) ==
PROVIDERS: Emergency Provider Emergency Medicine; Family Provider Family Medicine; PCP Family Medicine
DX: T40.711A Poisoning by cannabis, accidental (unintentional), initial encounter (principal); R03.0 Elevated blood-pressure reading, without diagnosis of hypertension
CPT/HCPCS: 36415; 70450; 71045; 80053; 80329; 82550; 83690; 83880; 84484; 85025; 93005; 96374; 99284; G0480; J2930

== ENCOUNTER → 2022-09-28 12:34 | Outpatient (CLI) | payer MEDICARE, MEDICAID, SELFPAY ==
[2019-01-05 10:35] VITALS: PULSE 57; RESP 16; O2SAT 93
[2021-07-21 18:23] VITALS: BMI 35.5
[2022-09-28 13:25] LABS: Creatinine Urine Random 141.3 mg/dL; Protein (Total) Urine Random 35 mg/dL (0-12); Protein Creatinine Ratio Urine 0.24 GRAM/24H
[2022-09-28 13:38] LABS: Creatinine Urine Random 140.8 mg/dL
[2022-09-28 13:44] LABS: Microalbumi Creatinin Ratio Ur 106.5 ug/mg CR (<30)
[2022-09-28 13:45] LABS: Alanine Aminotransferase 25 IU/L (<35); Albumin 4.2 g/dL (3.5-5.0); Albumin Globulin Ratio 1.4 (1.0-2.8); Alkaline Phosphatase 83 U/L (38-126); Aspartate Aminotransferase 32 IU/L (14-36); BUN Creatinine Ratio 14.8 (6-22); Bilirubin Total 0.4 mg/dL (0.2-1.3); Blood Urea Nitrogen 22 mg/dL (7-17); Calcium 8.3 mg/dL (8.4-10.2); Carbon Dioxide 25 mmol/L (22-32); Chloride 104 mmol/L (98-107); Estimated Glomerular Filt Rate 36 mL/min (>60); Glucose 120 mg/dL (80-110); HEMOLYSIS < 15 (0-50); Potassium 4.2 mmol/L (3.4-5.1); Sodium 139 mmol/L (137-145); Total Protein 7.2 g/dL (6.3-8.2)
[2022-09-29 08:44] LABS: x Labcorp Estim. Avg Glu (eAG) 177 mg/dL (.); x Labcorp Hemoglobin A1c 7.8 % (4.8-5.6)
[2022-09-30 07:15] LABS: Parathyroid Hormone Int 99 pg/mL (15-65)
== END ==
PROVIDERS: Family Provider Family Medicine; PCP Family Medicine; Referring Provider Student in an Organized Health Care Education/Training Program; Visit Provider Student in an Organized Health Care Education/Training Program
DX: N25.81 Secondary hyperparathyroidism of renal origin (principal); R80.9 Proteinuria, unspecified; E78.00 Pure hypercholesterolemia, unspecified; I10 Essential (primary) hypertension; E11.21 Type 2 diabetes mellitus with diabetic nephropathy
CPT/HCPCS: 36415; 80053; 82043; 82570; 83036; 83970; 84156

== ENCOUNTER → 2022-10-12 15:43 | Outpatient (CLI) | payer MEDICARE, MEDICAID, SELFPAY ==
[2019-01-05 10:35] VITALS: PULSE 57; RESP 16; O2SAT 93
[2021-07-21 18:23] VITALS: BMI 35.5
[2022-10-12 17:15] LABS: Magnesium 1.1 mg/dL (1.6-2.3)
== END ==
PROVIDERS: Family Provider Family Medicine; PCP Family Medicine; Referring Provider Nurse Practitioner Family; Visit Provider Nurse Practitioner Family
DX: R79.0 Abnormal level of blood mineral (principal)
CPT/HCPCS: 36415; 83735

== ENCOUNTER → 2022-10-13 10:54 | Outpatient (CLI) | payer MEDICARE, MEDICAID, SELFPAY ==
[2019-01-05 10:35] VITALS: PULSE 57; RESP 16; O2SAT 93
[2021-07-21 18:23] VITALS: BMI 35.5
--- NOTE | 2022-10-13 10:55 | DI.MRI.S_ITS ---
PROCEDURE: MR STROKE Pre- and post-contrast brain MRI, non-contrast brain MR angiogram, pre- and postcontrast neck MR angiogram INDICATIONS: possible TIA TECHNIQUE: Brain: Noncontrast axial T1 spin echo, axial T2 fast spin echo, sagittal and axial FLAIR, coronal T2 fast spin echo, axial gradient echo, axial diffusion and ADC through the brain. After the administration of contrast, axial 3D VIBE of the cranial vasculature and brain. Brain MRA: Non-contrast 3-D time of flight MR angiogram, with multiple rujgohi-eiljkgyym-zfslspgbom (MIP) reformats performed. Neck MRA: Axial and sagittal TruFISP through the neck. Coronal dynamic MR angiogram during administration of contrast in the arterial and venous phases, with 3-dimenstional omprrfw-vsqaqfsum-mwlmbusehp (MIP) reformats constructed from subtraction images. COMPARISON: [facility], MR, MR STROKE, 01/06/2019, 11:08. [facility], CT, CT HEAD/BRAIN WO CON, 08/28/2022, 14:43. [facility], CT, CT HEAD/BRAIN WO CON, 01/05/2019, 21:02. FINDINGS: Image quality: Excellent. BRAIN: CSF spaces: Ventricles are normal in size and shape. Basal cisterns are patent. No extra-axial fluid collections. Brain: No intracranial bleeds or mass effects. Kern-white matter interface is normal. Diffusion weighted images show no acute ischemic insults. Brainstem appears normal. Normal intravascular flow voids are present. No abnormal intracranial enhancement. Skull and face: Calvarial marrow signal is normal. Orbits appear normal. Note is made of bilateral lens replacements. Sinuses: No significant paranasal sinus disease can be seen. There is again seen mastoid air cell fluid, moderate on the left and mild on the right. BRAIN MR ANGIOGRAM: Anterior circulation: Intracranial internal carotid arteries are normal in size and enhancement. There is an accessory anterior cerebral artery seen emanating from the anterior communicating artery itself, as on series 11, image 162. The flow within the paired anterior cerebral arteries is otherwise normal and symmetric. The flow within the middle cerebral arteries is normal and symmetric. The anterior communicating artery is seen. No stenoses, occlusions, or aneurysms. Posterior circulation: The visualized portions of the vertebral arteries demonstrate normal caliber, and join to form a normal appearing basilar artery. The flow within the posterior cerebral arteries is normal and symmetric. No stenoses, occlusions, or aneurysms. NECK MR ANGIOGRAM: Carotids: Great vessels demonstrate a conventional anatomy as they arise from the aortic arch. The origins of the common carotid arteries appear patent. The calibers and courses of both common carotid arteries are normal. The bifurcation regions appear normal bilaterally. The internal carotid arteries demonstrate normal course and caliber. Posterior circulation: The origins of the vertebral arteries appear patent. More superior portions of both vertebral arteries demonstrate normal course and caliber, and join to form a normal appearing basilar artery. Miscellaneous: Subclavian arteries appear patent. Pre-contrast images through the neck show no soft tissue abnormalities. IMPRESSION: BRAIN MRI: No findings of acute or subacute infarction can be seen. No masses or abnormal enhancement can be seen. Mastoid air cell fluid can again be seen. BRAIN MR ANGIOGRAM: No significant intracranial arterial abnormality is seen. NECK MR ANGIOGRAM: Within the arteries of the neck, no hemodynamically significant stenosis can be seen. Dictated by: Michele Rodrigues M.D. on 10/13/2022 at 12:23 Approved by: Michele Rodrigues M.D. on 10/13/2022 at 12:27
== END ==
PROVIDERS: Family Provider Family Medicine; PCP Family Medicine; Referring Provider Family Medicine; Visit Provider Family Medicine
DX: R41.82 Altered mental status, unspecified (principal); G47.00 Insomnia, unspecified
CPT/HCPCS: 70548; 70553; A9579

== ENCOUNTER → 2022-10-16 10:31 | Outpatient (CLI) | payer MEDICARE, MEDICAID, SELFPAY ==
[2019-01-05 10:35] VITALS: PULSE 57; RESP 16; O2SAT 93
[2021-07-21 18:23] VITALS: BMI 35.5
--- NOTE | 2022-10-16 10:33 | DI.RAD.S_ITS ---
PROCEDURE: XR RIBS LT MIN 3V W CXR1V INDICATIONS: Rib pain TECHNIQUE: 2 views of the left ribs were acquired, along with a single view chest. COMPARISON: [facility], , XR CHEST 1V, 08/28/2022, 14:38. FINDINGS: Surgical changes and devices: None. Bones and chest wall: There is a mildly displaced fracture in the anterior aspect of the left 7th rib. No suspicious bony lesions. Overlying soft tissues appear unremarkable. Lungs and pleura: No pleural effusions or pneumothorax. Lungs appear clear. Mediastinum: Mediastinal contours appear normal. Heart size is normal. IMPRESSION: Left 7th rib fracture. Dictated by: Dale Ghosh M.D. on 10/16/2022 at 11:46 Approved by: Dale Ghosh M.D. on 10/16/2022 at 11:48
== END ==
PROVIDERS: Family Provider Family Medicine; PCP Family Medicine; Referring Provider Nurse Practitioner Family; Visit Provider Nurse Practitioner Family
DX: S22.32XA Fracture of one rib, left side, initial encounter for closed fracture (principal)
CPT/HCPCS: 71101

== ENCOUNTER → 2022-11-03 08:56 | Outpatient (CLI) | payer MEDICARE, MEDICAID, SELFPAY ==
[2019-01-05 10:35] VITALS: PULSE 57; RESP 16; O2SAT 93
[2021-07-21 18:23] VITALS: BMI 35.5
[2022-11-03 09:58] LABS: Alanine Aminotransferase 19 IU/L (<35); Albumin 4.2 g/dL (3.5-5.0); Albumin Globulin Ratio 1.3 (1.0-2.8); Alkaline Phosphatase 87 U/L (38-126); Aspartate Aminotransferase 21 IU/L (14-36); BUN Creatinine Ratio 15.3 (6-22); Bilirubin Total 0.5 mg/dL (0.2-1.3); Blood Urea Nitrogen 25 mg/dL (7-17); Calcium 8.5 mg/dL (8.4-10.2); Carbon Dioxide 29 mmol/L (22-32); Chloride 103 mmol/L (98-107); Cholesterol 160 mg/dL (140-199); Estimated Glomerular Filt Rate 32 mL/min (>60); Globulin 3.2 g/dL (1.7-4.1); Glucose 236 mg/dL (80-110); HDL Cholesterol 67 mg/dL (40-60); HEMOLYSIS < 15 (0-50); LDL Cholesterol Calculated 65 mg/dL (<100); Potassium 4.2 mmol/L (3.4-5.1); Sodium 139 mmol/L (137-145); Total Protein 7.4 g/dL (6.3-8.2); Triglycerides 138 mg/dL (35-150)
[2022-11-03 10:24] LABS: Vitamin D 25 Hydroxy (D3) 63.9 ng/mL (30.0-100.0)
[2022-11-03 10:25] LABS: Creatinine Urine Random 64.6 mg/dL
[2022-11-03 10:29] LABS: Microalbumi Creatinin Ratio Ur 77.3 ug/mg CR (<30)
[2022-11-04 09:30] LABS: Labcorp Hemoglobin (Hb) A1c 8.7 % (4.8-5.6)
[2022-11-04 09:36] LABS: Calcium 8.6 mg/dL (8.7-10.3); Parathyroid Hormone, Intact 101 pg/mL (15-65)
== END ==
PROVIDERS: Family Provider Family Medicine; PCP Family Medicine; Referring Provider Internal Medicine Endocrinology, Diabetes & Metabolism; Visit Provider Internal Medicine Endocrinology, Diabetes & Metabolism
DX: E11.9 Type 2 diabetes mellitus without complications (principal); E21.3 Hyperparathyroidism, unspecified
CPT/HCPCS: 36415; 80053; 80061; 82043; 82306; 82310; 82570; 83036; 83970

== ENCOUNTER → 2023-02-06 10:46 | Outpatient (CLI) | payer MEDICARE, MEDICAID, SELFPAY ==
[2019-01-05 10:35] VITALS: PULSE 57; RESP 16; O2SAT 93
[2021-07-21 18:23] VITALS: BMI 35.5
[2023-02-06 12:14] LABS: Hematocrit 35.4 % (36-46); Hemoglobin 11.7 g/dL (12.0-16.0)
[2023-02-06 13:05] LABS: BUN Creatinine Ratio 15.5 (6-22); Blood Urea Nitrogen 22 mg/dL (7-17); Calcium 9.5 mg/dL (8.4-10.2); Carbon Dioxide 28 mmol/L (22-32); Chloride 101 mmol/L (98-107); Estimated Glomerular Filt Rate 38 mL/min (>60); Glucose 96 mg/dL (80-110); HEMOLYSIS < 15 (0-50); Potassium 4.3 mmol/L (3.4-5.1); Sodium 136 mmol/L (137-145)
[2023-02-06 13:12] LABS: Creatinine Urine Random 87.7 mg/dL; Protein (Total) Urine Random 20 mg/dL (0-12); Protein Creatinine Ratio Urine 0.22 GRAM/24H
[2023-02-06 13:23] LABS: Vitamin D 25 Hydroxy (D3) 63.6 ng/mL (30.0-100.0)
[2023-02-08 08:13] LABS: Parathyroid Hormone Int 43 pg/mL (15-65)
== END ==
PROVIDERS: Family Provider Family Medicine; PCP Family Medicine; Referring Provider Internal Medicine Endocrinology, Diabetes & Metabolism; Visit Provider Internal Medicine Endocrinology, Diabetes & Metabolism
DX: N25.81 Secondary hyperparathyroidism of renal origin (principal); N05.9 Unspecified nephritic syndrome with unspecified morphologic changes; D64.9 Anemia, unspecified; R80.9 Proteinuria, unspecified; E21.3 Hyperparathyroidism, unspecified
CPT/HCPCS: 36415; 80048; 82306; 82570; 83970; 84156; 85014; 85018

== ENCOUNTER → 2023-03-08 12:49 | Outpatient (CLI) | payer MEDICARE, MEDICAID, SELFPAY ==
[2019-01-05 10:35] VITALS: PULSE 57; RESP 16; O2SAT 93
[2021-07-21 18:23] VITALS: BMI 35.5
--- NOTE | 2023-03-08 12:52 | DI.US.S_ITS ---
PROCEDURE: US RENAL COMPLETE INDICATIONS: eval R flank pain TECHNIQUE: Real-time scanning was performed of the kidneys and bladder, with image documentation. COMPARISON: None. FINDINGS: Kidneys: Kidneys are normal in size. Right kidney measures 12.0 cm long; left kidney measures 9.5 cm long. Right renal cortical thickness is 1.3 cm; left renal cortical thickness is 1.0 cm. Renal cortical echotexture is normal. No hydronephrosis or nephrolithiasis. No suspicious solid mass lesions. Multiple left renal cysts. Largest left renal cyst measures 1.9 x 1.9 x 1.4 centimeter Bladder: Pre-void bladder volume is 110 mL. Post-void residual is 27 mL. Pre-void images demonstrate no intraluminal masses or stones. On pre-void images, both right and left ureteral jets are noted with color Doppler interrogation. (Of note, ureteral jets may not be detectable in up to 25% of cases due to insufficient differences in specific gravity between ureteral and bladder urine). Miscellaneous: No free pelvic fluid. IMPRESSION: No hydronephrosis. No renal stones. Dictated by: Angeli De Luna MD, PhD on 03/08/2023 at 16:31 Approved by: Angeli De Luna MD, PhD on 03/08/2023 at 16:32
--- NOTE | 2023-03-08 12:52 | DI.US.S_ITS ---
PROCEDURE: US PELVIC COMPLETE INDICATIONS: RIGHT PELVIC PAIN TECHNIQUE: Real-time scanning was performed of the pelvic organs, with image documentation. Additional endovaginal scanning was necessary due to incomplete visualization of the adnexal and endometrial structures by transabdominal scanning. COMPARISON: None. FINDINGS: Uterus: Uterus is is surgically absent. Ovaries: The ovaries are surgically absent. Other: No pathologic free abdominal or pelvic fluid. No sonographic abnormality identified within the pelvis. IMPRESSION: Prior hysterectomy and bilateral oophorectomy. No sonographic abnormality identified in the pelvis. We strive to produce accurate, complete, and clear reports of imaging services. To assist us in improving patient care, this report was composed using standard report templates and voice recognition software. Therefore, it may contain abnormal punctuation, insertions and/or omissions. Occasional wrong-word or sound-alike substitutions may occur. Though we review the report and make efforts to correct it, we do recommend that the report be read carefully in proper context to recognize any text inaccuracies. Dictated by: Angeli De Luna MD, PhD on 03/08/2023 at 16:32 Approved by: Angeli De Luna MD, PhD on 03/08/2023 at 16:33
[2023-03-08 14:38] LABS: Add Manual Diff / Slide Review NO; Basophils Absolute Auto 100 /uL (0-100); Basophils Percent Auto 1.1 % (0-2); Eosinophils Absolute Auto 100 /uL (0-450); Hematocrit 34.4 % (36-46); Hemoglobin 11.4 g/dL (12.0-16.0); Lymphocytes Absolute Auto 1500 /uL (1100-4500); Lymphocytes Percent Auto 23.2 % (25-40); Mean Corpuscular HGB Conc 33.1 % (30-36); Mean Corpuscular Hemoglobin 27.4 PG (26-34); Mean Corpuscular Volume 82.9 fL (80-100); Monocytes Absolute Auto 400 /uL (0-900); Monocytes Percent Auto 6.7 % (3-14); Neutrophils Absolute Auto 4500 /uL (1500-7000); Platelet Count 237 X10^3/uL (150-400); Red Blood Cell Count 4.15 X10^6/uL (4.0-5.2); Red Cell Distribution Width 14.5 % (11.6-14.8); White Blood Cell Count 6.7 X10^3/uL (4.5-11.0)
[2023-03-08 14:49] LABS: Hemoglobin A1C% w Est Avg Glu 6.9 % (4.0-6.0)
[2023-03-08 14:51] LABS: Alanine Aminotransferase 14 IU/L (<35); Albumin Globulin Ratio 1.3 (1.0-2.8); Alkaline Phosphatase 65 U/L (38-126); Aspartate Aminotransferase 21 IU/L (14-36); BUN Creatinine Ratio 17.2 (6-22); Bilirubin Total 0.6 mg/dL (0.2-1.3); Blood Urea Nitrogen 23 mg/dL (7-17); Calcium 9.3 mg/dL (8.4-10.2); Carbon Dioxide 26 mmol/L (22-32); Chloride 101 mmol/L (98-107); Estimated Glomerular Filt Rate 41 mL/min (>60); Globulin 3.1 g/dL (1.7-4.1); Glucose 104 mg/dL (80-110); HEMOLYSIS < 15 (0-50); Potassium 4.9 mmol/L (3.4-5.1); Sodium 133 mmol/L (137-145); Total Protein 7.1 g/dL (6.3-8.2)
[2023-03-08 14:54] LABS: C-Reactive Protein Quant 1.1 mg/dL (<1.0)
[2023-03-08 15:13] LABS: Erythrocyte Sedimentation Rate 45 MM/HR (0-20)
[2023-03-08 15:23] LABS: Appearance Urine UA CLEAR; Bilirubin Urine UA NEGATIVE (NEGATIVE); Color Urine UA YELLOW; Glucose Urine UA 3+ g/dL (Negative); Ketones Urine UA NEGATIVE (NEGATIVE); Leukocyte Esterase Urine UA NEGATIVE (NEGATIVE); Nitrite Urine UA NEGATIVE (Negative); Occult Blood Urine UA NEGATIVE (Negative); Protein Urine UA NEGATIVE (Negative); Urobilinogen Urine UA 0.2 E.U./dL (0.2)
[2023-03-08 15:26] LABS: pH Urine UA 5.5 (4.5-8.0)
[2023-03-08 15:50] LABS: Bacteria Urine None Seen; Culture Indicated Urine Cult Not Indicated; RBC Urine None Seen (0-5/HPF); Squamous Epithelial Cell Urine 1-5 /HPF (0-5/HPF); WBC Urine 0-1/HPF (0-5/HPF)
== END ==
PROVIDERS: Family Provider Family Medicine; PCP Family Medicine; Referring Provider Registered Nurse Diabetes Educator; Visit Provider Registered Nurse Diabetes Educator
DX: R10.31 Right lower quadrant pain (principal); R39.198 Other difficulties with micturition; K50.90 Crohn's disease, unspecified, without complications; E11.9 Type 2 diabetes mellitus without complications; I10 Essential (primary) hypertension; E78.5 Hyperlipidemia, unspecified; Z90.710 Acquired absence of both cervix and uterus; Z90.722 Acquired absence of ovaries, bilateral
CPT/HCPCS: 36415; 76770; 76830; 76856; 80053; 81001; 83036; 85025; 85651; 86140

== ENCOUNTER → 2023-06-20 14:52 | Outpatient (CLI) | payer MEDICARE, MEDICAID, SELFPAY ==
[2019-01-05 10:35] VITALS: PULSE 57; RESP 16; O2SAT 93
[2021-07-21 18:23] VITALS: BMI 35.5
--- NOTE | 2023-06-20 14:54 | DI.MG.S_ITS ---
BILATERAL DIGITAL SCREENING MAMMOGRAM 3D/2D WITH CAD: 06/20/2023 CLINICAL: Routine screening. Comparison is made to exams dated: 06/15/2022 mammogram, 05/01/2020 mammogram, and 03/28/2019 mammogram - [facility]. There are scattered areas of fibroglandular density in both breasts (category b / 25%-50% glandular tissue). Current study was also evaluated with a Computer Aided Detection (CAD) system. There are benign vascular calcifications in both breasts. No significant masses, calcifications, or other findings are seen in either breast. There has been no significant interval change. IMPRESSION: BENIGN There is no mammographic evidence of malignancy. A 1 year screening mammogram is recommended. Based on the Tyrer Cuzick model (a risk assessment model) the patient's lifetime risk is 2.2% and her 10 year risk is 0.0%. According to the ACR, ACS, and NCCN guidelines, an annual breast MRI exam along with mammogram is recommended if the patient's lifetime risk is 20% or greater. This exam was interpreted at Station ID: [id number]. NOTE: For mammograms, a report in lay terms will be sent to the patient. Approximately 15% of breast malignancies will not be visualized mammographically. In the management of a palpable breast mass, a negative mammogram must not discourage biopsy of a clinically suspicious lesion. Electronically Signed By: Yeimy bedolla/yanni:06/20/2023 15:58:14 letter sent: Normal Exam ACR BI-RADS Category 2: Benign Finding(s) 3342F
== END ==
PROVIDERS: Family Provider Family Medicine; PCP Family Medicine; Referring Provider Family Medicine; Visit Provider Family Medicine
DX: Z12.31 Encounter for screening mammogram for malignant neoplasm of breast (principal); R92.323 Mammographic fibroglandular density, bilateral breasts
CPT/HCPCS: 77063; 77067

== ENCOUNTER → 2023-06-28 11:12 | Outpatient (CLI) | payer MEDICARE, MEDICAID, SELFPAY ==
[2019-01-05 10:35] VITALS: PULSE 57; RESP 16; O2SAT 93
[2021-07-21 18:23] VITALS: BMI 35.5
[2023-06-28 11:48] LABS: Add Manual Diff / Slide Review NO; Basophils Absolute Auto 100 /uL (0-100); Basophils Percent Auto 0.9 % (0-2); Eosinophils Absolute Auto 100 /uL (0-450); Eosinophils Percent Auto 1.3 % (2-4); Hematocrit 36.4 % (36-46); Hemoglobin 11.9 g/dL (12.0-16.0); Lymphocytes Absolute Auto 1200 /uL (1100-4500); Lymphocytes Percent Auto 18.2 % (25-40); Mean Corpuscular HGB Conc 32.6 % (30-36); Mean Corpuscular Hemoglobin 27.5 PG (26-34); Mean Corpuscular Volume 84.4 fL (80-100); Monocytes Absolute Auto 400 /uL (0-900); Monocytes Percent Auto 5.7 % (3-14); Neutrophils Absolute Auto 4900 /uL (1500-7000); Neutrophils Percent Auto 73.9 % (50-75); Platelet Count 220 X10^3/uL (150-400); Red Blood Cell Count 4.31 X10^6/uL (4.0-5.2); Red Cell Distribution Width 15.5 % (11.6-14.8); White Blood Cell Count 6.7 X10^3/uL (4.5-11.0)
[2023-06-28 12:05] LABS: Erythrocyte Sedimentation Rate 58 MM/HR (0-20)
[2023-06-28 12:08] LABS: Hemoglobin A1C% w Est Avg Glu 6.3 % (4.0-6.0)
[2023-06-28 12:12] LABS: Alanine Aminotransferase 14 IU/L (<35); Albumin 4.3 g/dL (3.5-5.0); Albumin Globulin Ratio 1.2 (1.0-2.8); Alkaline Phosphatase 64 U/L (38-126); Aspartate Aminotransferase 24 IU/L (14-36); BUN Creatinine Ratio 15.7 (6-22); Bilirubin Total 0.6 mg/dL (0.2-1.3); Blood Urea Nitrogen 20 mg/dL (7-17); C-Reactive Protein Quant 1.1 mg/dL (<1.0); Carbon Dioxide 30 mmol/L (22-32); Chloride 107 mmol/L (98-107); Cholesterol 151 mg/dL (140-199); Estimated Glomerular Filt Rate 44 mL/min (>60); Globulin 3.7 g/dL (1.7-4.1); Glucose 96 mg/dL (80-110); HDL Cholesterol 57 mg/dL (40-60); HEMOLYSIS < 15 (0-50); LDL Cholesterol Calculated 71 mg/dL (<100); Potassium 3.8 mmol/L (3.4-5.1); Sodium 142 mmol/L (137-145); Triglycerides 116 mg/dL (35-150)
[2023-06-28 12:13] LABS: Rheumatoid Factor 13.4 IU/mL (<12.0)
[2023-06-28 12:27] LABS: Vitamin D 25 Hydroxy (D3) 47.3 ng/mL (30.0-100.0)
[2023-06-28 12:43] LABS: TSH w/ Reflex to FT4 0.86 uIU/mL (0.47-4.68)
[2023-06-28 15:58] LABS: Microalbumin Urine Random 4.7 mg/dL (0-1.6)
[2023-06-28 16:01] LABS: Creatinine Urine Random 93.6 mg/dL; Microalbumi Creatinin Ratio Ur 50.2 ug/mg CR (<30)
[2023-06-29 04:27] LABS: Apolipoprotein B 68 mg/dL (<90)
[2023-06-30 18:12] LABS: CCP Antibodies IgG/IgA 7 units (0-19)
[2023-07-01 03:38] LABS: Parathyroid Hormone, Intact 64 pg/mL (15-65)
== END ==
PROVIDERS: Family Provider Family Medicine; PCP Family Medicine; Referring Provider Family Medicine; Visit Provider Family Medicine
DX: Z00.00 Encounter for general adult medical examination without abnormal findings (principal); E78.5 Hyperlipidemia, unspecified; E11.9 Type 2 diabetes mellitus without complications; I10 Essential (primary) hypertension; E21.3 Hyperparathyroidism, unspecified; I51.89 Other ill-defined heart diseases; M79.89 Other specified soft tissue disorders; M17.12 Unilateral primary osteoarthritis, left knee; N18.30 Chronic kidney disease, stage 3 unspecified
CPT/HCPCS: 36415; 80053; 80061; 82043; 82172; 82306; 82310; 82570; 83036; 83970; 84443; 85025; 85651; 86140; 86200; 86430

== ENCOUNTER → 2023-07-30 14:51 | Outpatient (CLI) | payer MEDICARE, MEDICAID, SELFPAY ==
[2019-01-05 10:35] VITALS: PULSE 57; RESP 16; O2SAT 93
[2021-07-21 18:23] VITALS: BMI 35.5
--- NOTE | 2023-07-30 14:52 | DI.ECHO.S_ITS ---
[place] +---------+ Hospital +---------+ : : [address] : [address] : : : : [id number] : : : : Phone: [phone]+ Echocardiogram Report + + :Name: ALVERTO PEREZ Study Date: 07/30/2023 Height: 60 in : :[facility] ReadingLocation: Weight: 148 lb : : Gender: Female BSA: 1.6 m2 : :: 1945 Age: 78 yrs BP: 146/95 mmHg: :Reason For Study: [place] : :Ordering Physician: TANVI, : :MORENO Performed By: Brant Morales : :Referring: MORENO TINAJERO : + + Interpretation Summary Normal left ventricle size with ejection fraction 60-65%. The left atrium is mildly dilated. Mild aortic stenosis. The peak aortic velocity is 2.25 m/sec. Comparison is made with the echocardiogram of 10/14/2021, aortic stenosis has progressed slightly. Procedure: A two-dimensional transthoracic echocardiogram with color flow and Doppler was performed. The study quality was technically adequate. Comparison is made with the echocardiogram of 10/14/2021. The patient was in normal sinus rhythm during the exam. The heart rate ranged between 77-87 bpm during the study. Left Ventricle: The left ventricle is normal in size and wall thickness. The ejection fraction is estimated to be 60-65%. There are no focal wall motion abnormalities. Right Ventricle: The right ventricle is normal in size and function. Atria: The left atrium is mildly dilated. Right atrial size is normal. Mitral Valve: The mitral valve is normal in structure and function. There is no mitral valve stenosis. There has been no significant change since the previous study. Aortic Valve: The aortic valve is trileaflet. The aortic valve is mildly calcified. There is mild aortic stenosis. The peak aortic velocity is 2.25 m/sec. The aortic valve mean gradient is 12.6 mmHg. There is trace aortic regurgitation. Tricuspid Valve: The tricuspid valve is normal in structure and function. There is no tricuspid stenosis. There is trace tricuspid regurgitation. The right ventricular systolic pressure is estimated to be at least 19 mmHg based on an estimated right atrial pressure of 3 mm Hg. Pulmonic Valve: The pulmonic valve is not well visualized. There is no pulmonic valvular stenosis. There is no pulmonic valvular regurgitation. Great Vessels: The aortic root is normal size. The dimensions of the ascending aorta are normal. The IVC is of normal diameter and collapses greater than 50% with a sniff. This suggests a low right atrial pressure of 3 mm Hg. Pericardium/ Pleura There is no pericardial effusion. There is no pleural effusion. MMode/2D Measurements & Calculations LVIDd: 4.2 cm LVOT diam: 2.4 cm LVIDs: 3.0 cm Ao root diam: 3.1 cm FS: 28.5 % asc Aorta Diam: 2.9 cm IVSd: 0.91 cm Ao Arch Diam (Prox Trans): 2.8 cm LVPWd: 1.2 cm LV marti. diameter/BSA (cm/m^2): 2.6 LV sys. diameter/BSA (cm/m^2): 1.8 LA A2 area: 19.7 cm2 RA long axis: 4.4 cm LA A4 area: 20.4 cm2 RA area: 12.1 cm2 LA length (vol): 5.4 cm RA vol: 28.1 ml LA vol: 63.6 ml RA : 17.1 ml/m2 LA vol index: 38.7 ml/m2 IVC diam: 1.2 cm RVD1 (basal): 3.1 cm RVD2 (mid): 2.9 cm TAPSE: 1.5 cm Doppler Measurements & Calculations Ao V2 max: 225.5 cm/sec LVOT Max Salo: 86.4 cm/sec Ao V2 mean: 168.1 cm/sec LV V1 max P.0 mmHg Ao max P.3 mmHg LV V1 VTI: 19.1 cm Ao mean P.6 mmHg LITA(I,D): 1.9 cm2 Ao V2 VTI: 44.1 cm LITA(V,D): 1.7 cm2 sev ratio: 0.43 LITA indexed to BSA (cm^2/m^2): 1.2 MV E max salo: 52.2 cm/sec TR max salo: 205.5 cm/sec MV A max salo: 102.8 cm/sec TR max P.9 mmHg MV E/A: 0.51 PA V2 max: 128.2 cm/sec Med Peak E' Salo: 4.8 cm/sec PA V2 mean: 77.9 cm/sec E/E' med: 11.0 PA mean P.0 mmHg Lat Peak E' Salo: 6.3 cm/sec PA pr(Accel): 43.0 mmHg E/E' lat: 8.3 E/e' average: 9.7 MV dec time: 0.18 sec SV(LVOT): 84.5 ml Electronically signed by: Shahla orozco [place] Physician:07/30/2023 04:58 PM
== END ==
LOC: ECHO 14:51
PROVIDERS: Family Provider Family Medicine; PCP Family Medicine; Referring Provider Family Medicine; Visit Provider Family Medicine
DX: I35.0 Nonrheumatic aortic (valve) stenosis (principal); I13.10 Hypertensive heart and chronic kidney disease without heart failure, with stage 1 through stage 4 chronic kidney disease, or unspecified chronic kidney disease; E11.22 Type 2 diabetes mellitus with diabetic chronic kidney disease; N18.30 Chronic kidney disease, stage 3 unspecified; E78.5 Hyperlipidemia, unspecified; R01.1 Cardiac murmur, unspecified
CPT/HCPCS: 93306

== ENCOUNTER → 2023-07-31 14:27 | Outpatient (CLI) | payer MEDICARE, MEDICAID, SELFPAY ==
[2019-01-05 10:35] VITALS: PULSE 57; RESP 16; O2SAT 93
[2021-07-21 18:23] VITALS: BMI 35.5
--- NOTE | 2023-07-31 14:28 | DI.RAD.S_ITS ---
Bone Density Report Name: ALVERTO PEREZ Age: 78 Sex: Female Ethnicity: White Date of : 1945 Indication: postmenopausal; screening for osteoporosis; Referring Provider: MORENO TINAJERO Study: Bone densitometry was performed. Exam Date: July 31, 2023 Accession number: [id number] Bone Density: Region BMD T-score Z-score Classification AP Spine(L1-L4) 1.115 0.6 3.1 Normal Femoral Neck (Left) 0.876 0.2 2.4 Normal Total Hip (Left) 0.968 0.2 2.1 Normal Femoral Neck (Right) 0.903 0.5 2.7 Normal Total Hip (Right) 1.015 0.6 2.5 Normal Total Hip Mean 0.991 0.4 2.3 Normal World Health Organization criteria for BMD impression classify patients as: Normal (T-score at or above -1.0), Osteopenia (T-score between -1.0 and -2.5), or Osteoporosis (T-score at or below -2.5). 10-year Fracture Risk: FRAX not reported because: All T-scores for Spine Total, Hip Total, Femoral Neck at or above -1.0 Previous Exams: -- Region Exam Age BMD T-score BMD Change BMD Change Date g/cm2 vs Baseline vs Previous -- AP Spine (L1-L4) 07/31/2023 78 1.115 0.6 -0.116 (-9.4%)# -0.126 (-10.1%)# 11/26/2019 74 1.241 1.8 0.010 (0.8%) 0.010 (0.8%) 07/22/2015 70 1.231 1.7 Total Hip(Left) 07/31/2023 78 0.968 0.2 -0.118 (-10.9%)# -0.110 (-10.2%)# 11/26/2019 74 1.077 1.1 -0.009 (-0.8%) -0.009 (-0.8%) 07/22/2015 70 1.086 1.2 Total Hip(Right) 07/31/2023 78 1.015 0.6 -0.104 (-9.3%)# -0.056 (-5.2%)# 11/26/2019 74 1.072 1.1 -0.047 (-4.2%)* -0.047 (-4.2%)* 07/22/2015 70 1.119 1.4 -- *Denotes significance at 95% confidence level, LSC for AP Spine = 0.022 g/cm2, LSC for Total Hip = 0.027 g/cm2 # Denotes dissimilar scan types or analysis methods Impression: The patient has normal bone mass. No significant bone loss was observed. Discussion: LOW RISK OF FRACTURE; BONE DENSITY IS WELL ABOVE THE MINIMUM DESIRABLE LEVEL AND ABOVE AVERAGE FOR AGE AND SEX AT ALL SKELETAL SITES TESTED. This person's bone density is above expected limits for age and sex. This is rarely clinically significant, but should be pursued if there are significant musculoskeletal complaints. The patient should follow a healthful lifestyle (good nutrition with adequate calcium and vitamin D, and appropriate weight-bearing exercise). Follow-Up: Consider repeating this study in 5 years or sooner if there is some new clinical indication. Reported by: DELMIS CLEMONS MD on 07/31/2023 2:48:00 PM.
== END ==
PROVIDERS: Family Provider Family Medicine; PCP Family Medicine; Referring Provider Family Medicine; Visit Provider Family Medicine
DX: N95.9 Unspecified menopausal and perimenopausal disorder (principal)
CPT/HCPCS: 77080

== ENCOUNTER 2023-10-10 16:16 | Emergency (ER) | payer MEDICARE, MEDICAID, SELFPAY ==
[2019-01-05 10:35] VITALS: PULSE 57; RESP 16; O2SAT 93
[2021-07-21 18:23] VITALS: BMI 35.5
[2023-10-10] VITALS (8 sets, daily range): BP systolic 101–137; BP diastolic 55–76; PULSE 84–110; RESP 16–22; TEMP 36.6; O2SAT 94–98; BMI 27.3
--- NOTE | 2023-10-10 16:30 | ED.NAVMDI ---
HPI - Nausea/Vomiting/Diarrhea <Alexandra Enid, DO - Last Filed: 10/11/23 07:06> General Chief complaint: Nausea/Vomiting/Diarrhea Stated complaint: dehydrated sent by [facility] Time Seen by Provider: 10/10/23 16:30 History of Present Illness HPI Narrative: Patient is a 78-year-old female hyperlipidemia insulin-dependent diabetes presenting today with diarrhea. She reports that she has had diarrhea for about 1 week. It has gotten worse over the last few days. Abdominal cramping no nausea or vomiting. She has had at least 15 episodes of diarrhea. She has had temperature at least 100. She feels a little dizzy and lightheaded. She went to the walk-in clinic and found to be hypotensive with immediately to the ED. she has not hypotensive here in his afebrile she denies any sort of chest pain or palpitations. Related Data Home Medications Medication Instructions Recorded Confirmed Accu-Chek Advantage Meter 0 dev topical TID ##0 01/03/19 06/28/23 insulin glargine 100 unit/mL unit SUBCUT 03/08/23 06/28/23 subcutaneous solution (Lantus U-100 Insulin) Previous Rx's Medication Instructions Recorded insulin syringe-needle U-100 0.5 #100 ea 07/05/20 mL 31 gauge x 5/16 (Advocate Syringes) lancets (Accu-Chek Softclix #300 ea 05/16/21 Lancets) epinephrine 0.3 mg/0.3 mL 0.3 mg (0.3 mL) IM Q5-15M PRN 08/28/22 injection, auto-injector anaphylaxis #2 ea omeprazole 20 mg capsule,delayed See Rx Instructions .Route 01/01/23 release .COMPLEX #90 caps atorvastatin 20 mg tablet See Rx Instructions .Route 02/26/23 .COMPLEX #100 tabs blood sugar diagnostic (Accu-Chek #300 strips 03/19/23 Guide test strips) estradiol 0.01% (0.1 mg/gram) 1 g vaginal 3XW #42.5 grams 04/18/23 vaginal cream empagliflozin 25 mg tablet 25 mg PO DAILY #90 tabs 06/28/23 (Jardiance) metformin 500 mg tablet See Rx Instructions .Route 06/28/23 .COMPLEX #60 tabs semaglutide 1 mg/dose (4 mg/3 mL) 1 mg (0.75 mL) SUBCUT QWEEK #9 mL 08/28/23 subcutaneous pen injector (Ozempic) Allergies Allergy/AdvReac Type Severity Reaction Status Date / Time lisinopril Allergy Severe Swelling Verified 06/28/23 10:27 of Lip/Tongue/Throat Iodinated Contrast Media Allergy Verified 06/28/23 10:27 Patient History <Alexandra Rossi DO - Last Filed: 10/11/23 07:06> Medical History Morbid obesity Hyperparathyroidism Grade II diastolic dysfunction Chronic low back pain with sciatica Anemia in chronic kidney disease Angioedema Duodenal ulcer Abnormal Pap smear of cervix Diabetes mellitus Hyperlipidemia GERD (gastroesophageal reflux disease) Crohn's disease Surgical History History of left oophorectomy Status post laparoscopic cholecystectomy Status post cone biopsy of cervix Family History Father Diabetes mellitus Social History household members: family and none Smoking Status: Former smoker alcohol intake: current eating out: rarely or never Type(s) of exercise: walking Smoking Status: Former smoker alcohol intake frequency: a few times a week Substance Use Type: marijuana Exam <Alexandra Rossi DO - Last Filed: 10/11/23 07:06> Initial Vital Signs Initial Vital Signs: Vital Signs Temperature 98 F 10/10/23 16:26 Pulse Rate 110 H 10/10/23 16:26 Respiratory Rate 16 10/10/23 16:26 Blood Pressure 101/55 L 10/10/23 16:26 Pulse Oximetry 98 10/10/23 16:26 Oxygen Delivery Method Room Air 10/10/23 16:26 GENERAL: Alert pleasant 78-year-old and in no acute distress. HEENT: Head atraumatic,EOMI, pupils reactive, face symmetric, moist mucous membranes CARDIOVASCULAR: Regular rate and rhythm without murmurs, rubs or gallops. RESPIRATORY: Breath sounds equal bilaterally, no wheezes rales or rhonchi. ABDOMEN: Soft, nontender. Normoactive bowel sounds all 4 quadrants. No guarding or rebound. : No CVA tenderness EXTREMITIES: Normal range of motion, no clubbing or edema. Neurovascularly intact NEUROLOGICAL: Alert and oriented x4.Normal gait and speech. Cranial nerves II through XII grossly intact. SKIN: Warm, dry, no laceration, no petechiae, no rashes or lesions. <Donna Lopez MD - Last Filed: 10/11/23 03:37> Initial Vital Signs Initial Vital Signs: Vital Signs Temperature 98 F 10/10/23 16:26 Pulse Rate 110 H 10/10/23 16:26 Respiratory Rate 16 10/10/23 16:26 Blood Pressure 101/55 L 10/10/23 16:26 Pulse Oximetry 98 10/10/23 16:26 Oxygen Delivery Method Room Air 10/10/23 16:26 Course <Alexandra Rossi DO - Last Filed: 10/11/23 07:06> Orders Ordered: Discontinued Medications Azithromycin (Azithromycin 250 Mg Tablet) 500 mg PO NOW ONE Stop: 10/10/23 19:02 Last Admin: 10/10/23 19:27 Dose: 500 mg Documented By: AMAYA Sodium Chloride (Normal Saline 0.9%) 1,000 mls @ 1,000 mls/hr IV BOLUS ONE Stop: 10/10/23 17:30 Last Infusion: 10/10/23 19:32 Dose: Infused Documented By: Admin: 10/10/23 17:01 Dose: 1,000 mls/hr Documented By: WESTON Acetaminophen (Ofirmev) 1,000 mg in 100 mls @ 400 mls/hr IV NOW ONE Stop: 10/10/23 16:46 Last Infusion: 10/10/23 17:19 Dose: Infused Documented By: Admin: 10/10/23 17:01 Dose: 400 mls/hr Documented By: WESTON Sodium Chloride (Normal Saline 0.9%) 1,000 mls @ 1,000 mls/hr IV BOLUS ONE Stop: 10/10/23 20:00 Last Admin: 10/10/23 19:28 Dose: 1,000 mls/hr Documented By: AMAYA Vital Signs Vital signs: Vital Signs - 8 hr 10/10/23 20:06 Pulse Rate 84 Respiratory Rate 16 Blood Pressure 106/55 L Pulse Oximetry 96 Oxygen Delivery Method Room Air <Donna Lopez MD - Last Filed: 10/11/23 03:37> Orders Ordered: Discontinued Medications Azithromycin (Azithromycin 250 Mg Tablet) 500 mg PO NOW ONE Stop: 10/10/23 19:02 Last Admin: 10/10/23 19:27 Dose: 500 mg Documented By: AMAYA Sodium Chloride (Normal Saline 0.9%) 1,000 mls @ 1,000 mls/hr IV BOLUS ONE Stop: 10/10/23 17:30 Last Infusion: 10/10/23 19:32 Dose: Infused Documented By: Admin: 10/10/23 17:01 Dose: 1,000 mls/hr Documented By: WESTON Acetaminophen (Ofirmev) 1,000 mg in 100 mls @ 400 mls/hr IV NOW ONE Stop: 10/10/23 16:46 Last Infusion: 10/10/23 17:19 Dose: Infused Documented By: Admin: 10/10/23 17:01 Dose: 400 mls/hr Documented By: WESTON Sodium Chloride (Normal Saline 0.9%) 1,000 mls @ 1,000 mls/hr IV BOLUS ONE Stop: 10/10/23 20:00 Last Admin: 10/10/23 19:28 Dose: 1,000 mls/hr Documented By: AMAYA Vital Signs Vital signs: Vital Signs - 8 hr 10/10/23 20:06 Pulse Rate 84 Respiratory Rate 16 Blood Pressure 106/55 L Pulse Oximetry 96 Oxygen Delivery Method Room Air MDM - Nausea/Vomiting/Diarrhea <Alexandra Rossi DO - Last Filed: 10/11/23 07:06> Lab Data 10/10/23 16:45 10/10/23 19:37 Labs: Lab Results 10/10/23 10/10/23 10/10/23 Range/Units 16:38 16:45 19:37 WBC 8.1 (4.5-11.0) X10^3/uL RBC 4.79 (4.0-5.2) X10^6/uL Hgb 13.1 (12.0-16.0) g/dL Hct 39.6 (36-46) % MCV 82.7 (80-100) fL MCH 27.3 (26-34) PG MCHC 33.0 (30-36) % RDW 15.4 H (11.6-14.8) % Plt Count 248 (150-400) X10^3/uL Neut % (Auto) 75.9 H (50-75) % Lymph % (Auto) 14.2 L (25-40) % Union % (Auto) 9.1 (3-14) % Eos % (Auto) 0.4 L (2-4) % Baso % (Auto) 0.4 (0-2) % Neut # (Auto) 6200 (6950-7972) /uL Lymph # (Auto) 1200 (1262-8446) /uL Union # (Auto) 700 (0-900) /uL Eos # (Auto) 0 (0-450) /uL Baso # (Auto) 0 (0-100) /uL Sodium 137 137 (137-145) mmol/L Potassium 3.5 3.5 (3.4-5.1) mmol/L Chloride 104 108 H (98-107) mmol/L Carbon Dioxide 21 L 20 L (22-32) mmol/L BUN 24 H 25 H (7-17) mg/dL Creatinine 2.02 H 1.82 H (0.52-1.04) mg/dL Estimated GFR 25 L 28 L (>60) mL/min BUN/Creatinine Ratio 11.9 13.7 (6-22) Glucose 176 H 126 H (80-110) mg/dL Lactate 1.6 (0.7-2.1) mmol/L Calcium 8.4 7.5 L (8.4-10.2) mg/dL Total Bilirubin 1.0 (0.2-1.3) mg/dL AST 20 (14-36) IU/L ALT 11 (<35) IU/L Alkaline Phosphatase 73 (38-126) U/L Total Protein 8.2 (6.3-8.2) g/dL Albumin 4.5 (3.5-5.0) g/dL Globulin 3.7 (1.7-4.1) g/dL Albumin/Globulin Ratio 1.2 (1.0-2.8) Lipase 107 (23-300) U/L Stl C. cayetanensis PCR Not detected (Not Detect) Stool Rotavirus (PCR) Not detected (Not Detect) Stool Adenovirus (PCR) Not detected (Not Detect) Stool Astrovirus (PCR) Not detected (Not Detect) Stool Cryptosporidium PCR Not detected (Not Detect) Stl E.coli Shiga Tox PCR Not detected (Not Detect) St Sh/Enteroin Ecoli PCR Not detected (Not Detect) Stl Enterotoxigenic E PCR Not detected (Not Detect) Stool EPEC (PCR) Not detected (Not Detect) Stl E. histolytica PCR Not detected (Not Detect) Stool Giardia Lamblia PCR Not detected (Not Detect) Stool Sapovirus (PCR) Not detected (Not Detect) Stl P. shigelloides PCR Not detected (Not Detect) St Y.enterocolitica PCR Not detected (Not Detect) Stool Vibrio (PCR) Not detected (Not Detect) Stl Vibrio cholerae PCR Not detected (Not Detect) Stl Enteroaggr Ecoli PCR Not detected (Not Detect) Stl Norovirus GI/GII PCR Not detected (Not Detect) Campylobacter (PCR) Detected (Not Detect) C. difficile Tox (PCR) Not detected (Not Detect) Salmonella (PCR) Not detected (Not Detect) MDM Narrative Medical decision making narrative: Patient 78-year-old female who presents today with ongoing diarrhea. Suddenly she was a little bit sick last week but it really started 3 days ago. She has had increased temperature. Blood work does show WBC of 8.1 hemoglobin 13.1 hematocrit 39.6, sodium is 137 potassium 3.5 chloride 104 carbon dioxide 21 BUN 24 creatinine 2.0 previously 1.2 it does look like baseline is about 1.3, bilirubin 1.0 AST 20 ALT 11 alk-phos 73 lipase 107 GI panel positive for Campylobacter Patient received 1 L of IV fluids. She has mild NURYS mild hypotension which is improving. Repeat blood work along with repeat normal saline bolus. She is given 1 dose of azithromycin secondary to ongoing diarrhea and reported temperature at home. Although no obvious sepsis here. Patient signed out to Dr. Lopez for further disposition <Donna Lopez MD - Last Filed: 10/11/23 03:37> Lab Data Labs: Lab Results 10/10/23 10/10/23 10/10/23 Range/Units 16:38 16:45 19:37 WBC 8.1 (4.5-11.0) X10^3/uL RBC 4.79 (4.0-5.2) X10^6/uL Hgb 13.1 (12.0-16.0) g/dL Hct 39.6 (36-46) % MCV 82.7 (80-100) fL MCH 27.3 (26-34) PG MCHC 33.0 (30-36) % RDW 15.4 H (11.6-14.8) % Plt Count 248 (150-400) X10^3/uL Neut % (Auto) 75.9 H (50-75) % Lymph % (Auto) 14.2 L (25-40) % Union % (Auto) 9.1 (3-14) % Eos % (Auto) 0.4 L (2-4) % Baso % (Auto) 0.4 (0-2) % Neut # (Auto) 6200 (6300-9954) /uL Lymph # (Auto) 1200 (4065-8217) /uL Union # (Auto) 700 (0-900) /uL Eos # (Auto) 0 (0-450) /uL Baso # (Auto) 0 (0-100) /uL Sodium 137 137 (137-145) mmol/L Potassium 3.5 3.5 (3.4-5.1) mmol/L Chloride 104 108 H (98-107) mmol/L Carbon Dioxide 21 L 20 L (22-32) mmol/L BUN 24 H 25 H (7-17) mg/dL Creatinine 2.02 H 1.82 H (0.52-1.04) mg/dL Estimated GFR 25 L 28 L (>60) mL/min BUN/Creatinine Ratio 11.9 13.7 (6-22) Glucose 176 H 126 H (80-110) mg/dL Lactate 1.6 (0.7-2.1) mmol/L Calcium 8.4 7.5 L (8.4-10.2) mg/dL Total Bilirubin 1.0 (0.2-1.3) mg/dL AST 20 (14-36) IU/L ALT 11 (<35) IU/L Alkaline Phosphatase 73 (38-126) U/L Total Protein 8.2 (6.3-8.2) g/dL Albumin 4.5 (3.5-5.0) g/dL Globulin 3.7 (1.7-4.1) g/dL Albumin/Globulin Ratio 1.2 (1.0-2.8) Lipase 107 (23-300) U/L Stl C. cayetanensis PCR Not detected (Not Detect) Stool Rotavirus (PCR) Not detected (Not Detect) Stool Adenovirus (PCR) Not detected (Not Detect) Stool Astrovirus (PCR) Not detected (Not Detect) Stool Cryptosporidium PCR Not detected (Not Detect) Stl E.coli Shiga Tox PCR Not detected (Not Detect) St Sh/Enteroin Ecoli PCR Not detected (Not Detect) Stl Enterotoxigenic E PCR Not detected (Not Detect) Stool EPEC (PCR) Not detected (Not Detect) Stl E. histolytica PCR Not detected (Not Detect) Stool Giardia Lamblia PCR Not detected (Not Detect) Stool Sapovirus (PCR) Not detected (Not Detect) Stl P. shigelloides PCR Not detected (Not Detect) St Y.enterocolitica PCR Not detected (Not Detect) Stool Vibrio (PCR) Not detected (Not Detect) Stl Vibrio cholerae PCR Not detected (Not Detect) Stl Enteroaggr Ecoli PCR Not detected (Not Detect) Stl Norovirus GI/GII PCR Not detected (Not Detect) Campylobacter (PCR) Detected (Not Detect) C. difficile Tox (PCR) Not detected (Not Detect) Salmonella (PCR) Not detected (Not Detect) MDM Narrative Medical decision making narrative: Patient 78-year-old female who presents today with ongoing diarrhea. Suddenly she was a little bit sick last week but it really started 3 days ago. She has had increased temperature. Blood work does show WBC of 8.1 hemoglobin 13.1 hematocrit 39.6, sodium is 137 potassium 3.5 chloride 104 carbon dioxide 21 BUN 24 creatinine 2.0 previously 1.2 it does look like baseline is about 1.3, bilirubin 1.0 AST 20 ALT 11 alk-phos 73 lipase 107 GI panel positive for Campylobacter Patient received 1 L of IV fluids. She has mild NURYS mild hypotension which is improving. Repeat blood work along with repeat normal saline bolus. She is given 1 dose of azithromycin secondary to ongoing diarrhea and reported temperature at home. Although no obvious sepsis here. Patient signed out to Dr. Lopez for further disposition Dr. Lopez -patient was in the process of receiving IV fluids. Patient and her family are inquiring about leaving as they have to leave soon otherwise they missed their [place] for the night. Patient counseled on her kidney function and given option to stay and recheck her creatinine or go home now with primary care follow up. Patient stated that she did not want to stay any longer in the emergency department as she was like to go home tonight. She stated that she would make sure to drink plenty of fluids at home and she will follow up with her primary care doctor about rechecking her creatinine. Patient counseled on supportive care for Campylobacter infection at home. ED return precautions discussed at bedside. Discharge Plan Departure Patient Disposition: Home Clinical Impression: Campylobacter diarrhea, NURYS (acute kidney injury) Instructions: DI for Dehydration -- Adult Activity Restrictions/Additional Instructions: DRINK LOTS OF FLUID. FOLLOW UP WITH YOUR PRIMARY CARE DOCTOR AND ASK FOR A KIDNEY FUNCTION RECHECK. THE CAMPYLOBACTER IN YOUR STOOL IS A BACTERIA, BUT ANTIBIOTICS ARE NOT INDICATED. THIS WILL USUALLY RESOLVE ON ITS OWN IN 7-10 DAYS. Prescriptions: No Action (DME) insulin syringe-needle U-100 [Advocate Syringes] 0.5 mL 31 gauge x 5/16 syringe See Rx Instructions .ROUTE .MEDSUPPLY Qty: 100 3RF Rx Instructions: As directed (DME) lancets [Accu-Chek Softclix Lancets] Misc See Rx Instructions .ROUTE .COMPLEX Qty: 300 3RF Dose Instruction: USE DIRECTED Rx Instructions: USE DIRECTED omeprazole 20 mg capsule,delayed release(DR/EC) See Rx Instructions .ROUTE .COMPLEX Qty: 90 3RF Dose Instruction: TAKE 1 CAPSULE BY MOUTH DAILY Rx Instructions: TAKE 1 CAPSULE BY MOUTH DAILY atorvastatin 20 mg tablet See Rx Instructions .ROUTE .COMPLEX Qty: 100 2RF Dose Instruction: TAKE 1 TABLET BY MOUTH IN THE EVENING Rx Instructions: TAKE 1 TABLET BY MOUTH IN THE EVENING (DME) Accu-Chek Guide test strips Strip See Rx Instructions .ROUTE .COMPLEX Qty: 300 3RF Dose Instruction: USE DIRECTED Rx Instructions: USE DIRECTED estradiol 0.01 % (0.1 mg/gram) cream 1 g vaginal 3XW Qty: 42.5 12RF Rx Instructions: 1 gm PV HS 3x weekly Ozempic 1 mg/dose (4 mg/3 mL) pen injector 1 mg SUBCUT QWEEK Qty: 9 3RF insulin glargine [Lantus U-100 Insulin] 100 unit/mL solution SUBCUT Patient Comments: [NO ORIGINAL SIG] Jardiance 25 mg tablet 25 mg PO DAILY Qty: 90 3RF Rx Instructions: Take after 10mg tab is finished metformin 500 mg tablet See Rx Instructions .ROUTE .COMPLEX Qty: 60 11RF Dose Instruction: TAKE 1 TABLET BY MOUTH TWICE DAILY Rx Instructions: TAKE 1 TABLET BY MOUTH TWICE DAILY Accu-Chek Advantage Meter 0 dev topical TID Qty: 0 epinephrine 0.3 mg/0.3 mL auto-injector 0.3 mg IM Q5-15M PRN (Reason: anaphylaxis) Qty: 2 0RF Rx Instructions: do not exceed 3 doses per episode Referrals: Jovan Nichols MD [Primary Care Provider] - Stand Alone Forms: Patient Portal/API
[2023-10-10 16:53] LABS: Add Manual Diff / Slide Review NO; Basophils Absolute Auto 0 /uL (0-100); Basophils Percent Auto 0.4 % (0-2); Eosinophils Absolute Auto 0 /uL (0-450); Eosinophils Percent Auto 0.4 % (2-4); Hematocrit 39.6 % (36-46); Hemoglobin 13.1 g/dL (12.0-16.0); Lymphocytes Absolute Auto 1200 /uL (1100-4500); Lymphocytes Percent Auto 14.2 % (25-40); Mean Corpuscular Hemoglobin 27.3 PG (26-34); Mean Corpuscular Volume 82.7 fL (80-100); Monocytes Absolute Auto 700 /uL (0-900); Monocytes Percent Auto 9.1 % (3-14); Neutrophils Absolute Auto 6200 /uL (1500-7000); Neutrophils Percent Auto 75.9 % (50-75); Platelet Count 248 X10^3/uL (150-400); Red Blood Cell Count 4.79 X10^6/uL (4.0-5.2); Red Cell Distribution Width 15.4 % (11.6-14.8); White Blood Cell Count 8.1 X10^3/uL (4.5-11.0)
[2023-10-10] MEDS: SODIUM CHLORIDE 0.9% 1,000 ML 1000 ML IV ×2 (17:01→19:28)
[2023-10-10] MEDS: ACETAMINOPHEN IV 1,000 MG/100 ML VIAL 400 MG IV (17:01)
--- NOTE | 2023-10-10 17:05 | EKG_ITS ---
[address] [address] Test Date: 2023-10-10 Pat Name: Nani Morton Department: [facility] Room: Gender: Female [employer]: WALTER : 1945 Requested By: Order Number: [id number] Reading MD: Good Rodriguez Measurements Intervals [place] Rate: 98 P: 40 NH: 118 QRS: -12 QRSD: 70 T: 44 QT: 338 QTc: 431 Interpretive Statements Normal sinus rhythm Inferior infarct , age undetermined Electronically Signed On 10-10-2023 18:40:56 PDT by Good Rodriguez
[2023-10-10 17:06] LABS: Alanine Aminotransferase 11 IU/L (<35); Albumin 4.5 g/dL (3.5-5.0); Albumin Globulin Ratio 1.2 (1.0-2.8); Alkaline Phosphatase 73 U/L (38-126); Aspartate Aminotransferase 20 IU/L (14-36); BUN Creatinine Ratio 11.9 (6-22); Blood Urea Nitrogen 24 mg/dL (7-17); Calcium 8.4 mg/dL (8.4-10.2); Carbon Dioxide 21 mmol/L (22-32); Chloride 104 mmol/L (98-107); Estimated Glomerular Filt Rate 25 mL/min (>60); Globulin 3.7 g/dL (1.7-4.1); Glucose 176 mg/dL (80-110); HEMOLYSIS < 15 (0-50); Lactate (Lactic Acid) 1.6 mmol/L (0.7-2.1); Lipase 107 U/L (23-300); Potassium 3.5 mmol/L (3.4-5.1); Sodium 137 mmol/L (137-145); Total Protein 8.2 g/dL (6.3-8.2)
[2023-10-10 17:58] LABS: Adenovirus F 40/41 Not Detected (Not Detect); Astrovirus Not Detected (Not Detect); Campylobacter Detected (Not Detect); Clostridium difficile toxin AB Not Detected (Not Detect); Cryptosporidium Not Detected (Not Detect); Cyclospora cayetanensis Not Detected (Not Detect); Entamoeba histolytica Not Detected (Not Detect); Enteroaggregative E.coli Not Detected (Not Detect); Enteropathogenic E.coli Not Detected (Not Detect); Enterotoxigenic E.coli It/st Not Detected (Not Detect); Giardia lamblia Not Detected (Not Detect); Norovirus GI/GII Not Detected (Not Detect); Plesiomonsa shigelloides Not Detected (Not Detect); Rotavirus A Not Detected (Not Detect); Salmonella Not Detected (Not Detect); Sapovirus Not Detected (Not Detect); Shiga-like toxin-prod E.coli Not Detected (Not Detect); Shigella/Enteroinvasive E.coli Not Detected (Not Detect); Vibrio Not Detected (Not Detect); Vibrio cholerae Not Detected (Not Detect); Yersinia enterocolitica Not Detected (Not Detect)
--- NOTE | 2023-10-10 18:48 | PC.NURSE ---
Patient states that she Feels much better then when she first came in. No complaints of weakness or unsteadiness as well
[2023-10-10] MEDS: AZITHROMYCIN 250 MG TABLET 500 MG PO (19:27)
[2023-10-10 19:56] LABS: BUN Creatinine Ratio 13.7 (6-22); Blood Urea Nitrogen 25 mg/dL (7-17); Calcium 7.5 mg/dL (8.4-10.2); Carbon Dioxide 20 mmol/L (22-32); Chloride 108 mmol/L (98-107); Estimated Glomerular Filt Rate 28 mL/min (>60); Glucose 126 mg/dL (80-110); HEMOLYSIS 18 (0-50); Potassium 3.5 mmol/L (3.4-5.1); Sodium 137 mmol/L (137-145)
== END 2023-10-10 20:00 | disposition home or self-care (01) ==
PROVIDERS: Emergency Medicine; Emergency Provider Emergency Medicine; Family Provider Family Medicine; PCP Family Medicine
DX: A04.5 Campylobacter enteritis (principal); N17.9 Acute kidney failure, unspecified
CPT/HCPCS: 36415; 80048; 80053; 83605; 83690; 85025; 87507; 93005; 96365; 99284; J0136

== ENCOUNTER 2023-10-11 12:10 | Observation (INO) | payer MEDICARE, MEDICAID, SELFPAY ==
[2019-01-05 10:35] VITALS: PULSE 57; RESP 16; O2SAT 93
[2021-07-21 18:23] VITALS: BMI 35.5
[2023-10-11] VITALS (7 sets, daily range): BP systolic 93–139; BP diastolic 51–65; PULSE 66–99; RESP 15–18; TEMP 36.1–38; O2SAT 93–100; BMI 27.3; BMI 28.8
--- NOTE | 2023-10-11 13:05 | ED.NAVMDI ---
HPI - Nausea/Vomiting/Diarrhea General Chief complaint: Nausea/Vomiting/Diarrhea Stated complaint: Dehydrated, Campleobacter infection Time Seen by Provider: 10/11/23 12:26 Source: patient Mode of arrival: Wheelchair History of Present Illness HPI Narrative: Patient 78-year-old female with recent diagnosis of Campylobacter diarrhea made by me yesterday in the emergency department presents today with ongoing fever and nausea. Yesterday she was found to have mild NURYS however creatinine improved with fluids and at that time she wanted to go home. She continues to have fever today of 100.4 and feeling nauseous. Related Data Home Medications Medication Instructions Recorded Confirmed Accu-Chek Advantage Meter 0 dev topical TID ##0 01/03/19 10/11/23 insulin glargine 100 unit/mL See Rx Instructions .Route .COMPLEX 03/08/23 10/11/23 subcutaneous solution (Lantus U-100 Insulin) Previous Rx's Medication Instructions Recorded insulin syringe-needle U-100 0.5 #100 ea 07/05/20 mL 31 gauge x 5/16 (Advocate Syringes) lancets (Accu-Chek Softclix #300 ea 05/16/21 Lancets) epinephrine 0.3 mg/0.3 mL 0.3 mg (0.3 mL) IM Q5-15M PRN 08/28/22 injection, auto-injector anaphylaxis #2 ea omeprazole 20 mg capsule,delayed See Rx Instructions .Route 01/01/23 release .COMPLEX #90 caps atorvastatin 20 mg tablet See Rx Instructions .Route 02/26/23 .COMPLEX #100 tabs blood sugar diagnostic (Accu-Chek #300 strips 03/19/23 Guide test strips) estradiol 0.01% (0.1 mg/gram) 1 g vaginal 3XW #42.5 grams 04/18/23 vaginal cream empagliflozin 25 mg tablet 25 mg PO DAILY #90 tabs 06/28/23 (Jardiance) metformin 500 mg tablet See Rx Instructions .Route 06/28/23 .COMPLEX #60 tabs semaglutide 1 mg/dose (4 mg/3 mL) 1 mg (0.75 mL) SUBCUT QWEEK #9 mL 08/28/23 subcutaneous pen injector (Ozempic) Allergies Allergy/AdvReac Type Severity Reaction Status Date / Time lisinopril Allergy Severe Swelling Verified 10/11/23 12:20 of Lip/Tongue/Throat Iodinated Contrast Media Allergy Verified 10/11/23 12:20 Patient History Medical History Morbid obesity Hyperparathyroidism Grade II diastolic dysfunction Chronic low back pain with sciatica Anemia in chronic kidney disease Angioedema Duodenal ulcer Abnormal Pap smear of cervix Diabetes mellitus Hyperlipidemia GERD (gastroesophageal reflux disease) Crohn's disease Surgical History History of left oophorectomy Status post laparoscopic cholecystectomy Status post cone biopsy of cervix Family History Father Diabetes mellitus Social History household members: family and none Smoking Status: Former smoker alcohol intake: current eating out: rarely or never Type(s) of exercise: walking Smoking Status: Former smoker alcohol intake frequency: a few times a week Substance Use Type: marijuana Exam Initial Vital Signs Initial Vital Signs: Vital Signs Temperature 100.4 F H 10/11/23 12:18 Pulse Rate 99 H 10/11/23 12:18 Respiratory Rate 15 10/11/23 12:18 Blood Pressure 139/65 10/11/23 12:18 Pulse Oximetry 97 10/11/23 12:18 Oxygen Delivery Method Room Air 10/11/23 12:18 GENERAL: Alert pleasant 78-year-old female and in no acute distress. HEENT: Head atraumatic,EOMI, pupils reactive, face symmetric, slightly dry mucous membranes CARDIOVASCULAR: Regular rate and rhythm without murmurs, rubs or gallops. RESPIRATORY: Breath sounds equal bilaterally, no wheezes rales or rhonchi. ABDOMEN: Soft, mild tenderness no localization no significant distention no guarding or rebound EXTREMITIES: Normal range of motion, no clubbing or edema. Neurovascularly intact NEUROLOGICAL: Alert and oriented x4.Normal gait and speech. SKIN: Warm, dry, no laceration, no petechiae, no rashes or lesions. Course Orders Ordered: ED Orders 10/11/23 12:54 CBC Auto Diff [Complete Blood Count AUTO DIFF] Stat CMP [Comprehensive Metabolic Panel] Stat Lactate (Lactic Acid) Stat 10/11/23 13:13 Blood Culture Stat Acetaminophen (Acetaminophen 325 Mg Tablet) 650 mg PO Q6H PRN PRN Reason: Fever/Mild Pain (1-3) Atorvastatin Calcium (Atorvastatin 20 Mg Tablet) 20 mg PO BEDTIME SHIKHA Azithromycin (Azithromycin 250 Mg Tablet) 500 mg PO DAILY SHIKHA Stop: 10/12/23 13:01 Enoxaparin Sodium (Enoxaparin 40 Mg/0.4 Ml Syringe) 40 mg SUBCUT DAILY SHIKHA Hydromorphone HCl (Hydromorphone 0.5 Mg Inj) 0.5 mg IV Q2H PRN PRN Reason: Pain, Severe (7-10) Sodium Chloride (Normal Saline 0.9%) 1,000 mls @ 100 mls/hr IV CONT SHIKHA Last Admin: 10/11/23 16:00 Dose: 100 mls/hr Documented By: Dextrose ([id number]) 100 mls @ 999 mls/hr IV PRN PRN PRN Reason: Hypoglycemia Insulin Human Lispro (Insulin Lispro 100 Unit/Ml 3ml Vial) 0 unit SUBCUT ACHS SHIKHA; Protocol Naloxone HCl (Naloxone 0.4 Mg/Ml Vial) 0.2 mg IV Q2MIN PRN PRN Reason: Opiate Reversal Ondansetron HCl (Ondansetron 4 Mg/2 Ml Inj) 4 mg IV Q4HR PRN PRN Reason: nausea and vomiting Oxycodone HCl (Oxycodone Ir 5 Mg Tablet) 5 mg PO Q3H PRN PRN Reason: Pain, Moderate (4-6) Pantoprazole Sodium (Pantoprazole Dr 20 Mg Tablet) 20 mg PO 0700 [facility] Discontinued Medications Azithromycin (Azithromycin 250 Mg Tablet) 500 mg PO NOW ONE Stop: 10/11/23 13:13 Last Admin: 10/11/23 13:20 Dose: 500 mg Documented By: BETH Sodium Chloride (Normal Saline 0.9%) 1,000 mls @ 1,000 mls/hr IV BOLUS ONE Stop: 10/11/23 13:25 Last Infusion: 10/11/23 14:20 Dose: Infused Documented By: Admin: 10/11/23 13:08 Dose: 1,000 mls/hr Documented By: BETH Acetaminophen (Ofirmev) 1,000 mg in 100 mls @ 400 mls/hr IV NOW ONE Stop: 10/11/23 13:27 Last Infusion: 10/11/23 13:59 Dose: Infused Documented By: Admin: 10/11/23 13:20 Dose: 400 mls/hr Documented By: BETH Sodium Chloride (Normal Saline 0.9%) 1,000 mls @ 1,000 mls/hr IV BOLUS ONE Stop: 10/11/23 14:37 Last Infusion: 10/11/23 14:40 Dose: Infused Documented By: Admin: 10/11/23 13:38 Dose: 1,000 mls/hr Documented By: CARLOS Ondansetron HCl (Ondansetron 4 Mg/2 Ml Inj) 4 mg IV NOW ONE Stop: 10/11/23 12:28 Last Admin: 10/11/23 13:08 Dose: 4 mg Documented By: BETH Vital Signs Vital signs: Vital Signs - 8 hr 10/11/23 12:18 10/11/23 13:47 10/11/23 13:48 Temperature 100.4 F H Pulse Rate 99 H 88 88 Respiratory Rate 15 Blood Pressure 139/65 Pulse Oximetry 97 96 93 Oxygen Delivery Method Room Air 10/11/23 13:48 10/11/23 14:00 10/11/23 14:00 Temperature Pulse Rate 85 Respiratory Rate Blood Pressure 101/55 L 93/51 L Pulse Oximetry 96 Oxygen Delivery Method 10/11/23 14:22 10/11/23 14:22 Temperature Pulse Rate 89 Respiratory Rate Blood Pressure 103/53 L Pulse Oximetry 95 Oxygen Delivery Method MDM - Nausea/Vomiting/Diarrhea Lab Data 10/11/23 12:54 10/11/23 12:54 Labs: Lab Results 10/11/23 Range/Units 12:54 WBC 6.0 (4.5-11.0) X10^3/uL RBC 4.33 (4.0-5.2) X10^6/uL Hgb 11.8 L (12.0-16.0) g/dL Hct 35.8 L (36-46) % MCV 82.7 (80-100) fL MCH 27.3 (26-34) PG MCHC 33.1 (30-36) % RDW 15.1 H (11.6-14.8) % Plt Count 204 (150-400) X10^3/uL Neut % (Auto) 70.3 (50-75) % Lymph % (Auto) 14.5 L (25-40) % Saunders % (Auto) 13.6 (3-14) % Eos % (Auto) 1.1 L (2-4) % Baso % (Auto) 0.5 (0-2) % Neut # (Auto) 4200 (1032-9609) /uL Lymph # (Auto) 900 L (2854-0200) /uL Saunders # (Auto) 800 (0-900) /uL Eos # (Auto) 100 (0-450) /uL Baso # (Auto) 0 (0-100) /uL Sodium 138 (137-145) mmol/L Potassium 3.4 (3.4-5.1) mmol/L Chloride 107 (98-107) mmol/L Carbon Dioxide 18 L (22-32) mmol/L BUN 25 H (7-17) mg/dL Creatinine 1.70 H (0.52-1.04) mg/dL Estimated GFR 31 L (>60) mL/min BUN/Creatinine Ratio 14.7 (6-22) Glucose 103 (80-110) mg/dL Lactate 0.9 (0.7-2.1) mmol/L Calcium 8.3 L (8.4-10.2) mg/dL Total Bilirubin 1.0 (0.2-1.3) mg/dL AST 22 (14-36) IU/L ALT 10 (<35) IU/L Alkaline Phosphatase 71 (38-126) U/L Total Protein 7.5 (6.3-8.2) g/dL Albumin 4.1 (3.5-5.0) g/dL Globulin 3.4 (1.7-4.1) g/dL Albumin/Globulin Ratio 1.2 (1.0-2.8) Point of Care Testing Glucose POC 76 MDM Narrative Medical decision making narrative: Patient 78-year-old female presents for the 2nd time in 24 hours with ongoing diarrhea. She was diagnosed with Campylobacter colitis yesterday. She was found to have NURYS with elevated creatinine of 2.0 however it did improve and she was discharged home. She presents again today with fever of 100.4 blood pressure is again slightly low with a systolic 101/55 down to 93/51. She is not tachycardic. Blood work has been reviewed she again has no leukocytosis creatinine has improved to 1.7 her baseline looks like it is about 1 2. Lactate 0.9 She continues to have some mild hypotension on ongoing diarrhea in the ED and dehydration. This time abdomen remains relatively soft in his nonacute abdomen. No imaging is required at this time. She is given IV fluids and another dose of azithromycin Dr. Alcaraz accepts patient Discharge Plan Departure Patient Disposition: Admitted as Observation Clinical Impression: Campylobacter diarrhea, NURYS (acute kidney injury), Acute dehydration Admit Date/Time: 10/11/23 14:53 Admit Provider: Ced Alcaraz
[2023-10-11] MEDS: ONDANSETRON 4 MG/2 ML INJ IV (13:08)
[2023-10-11] MEDS: SODIUM CHLORIDE 0.9% 1,000 ML 1000 ML IV ×2 (13:08→13:38)
[2023-10-11 13:17] LABS: Add Manual Diff / Slide Review NO; Basophils Absolute Auto 0 /uL (0-100); Basophils Percent Auto 0.5 % (0-2); Eosinophils Absolute Auto 100 /uL (0-450); Eosinophils Percent Auto 1.1 % (2-4); Hematocrit 35.8 % (36-46); Hemoglobin 11.8 g/dL (12.0-16.0); Lymphocytes Absolute Auto 900 /uL (1100-4500); Lymphocytes Percent Auto 14.5 % (25-40); Mean Corpuscular HGB Conc 33.1 % (30-36); Mean Corpuscular Hemoglobin 27.3 PG (26-34); Mean Corpuscular Volume 82.7 fL (80-100); Monocytes Absolute Auto 800 /uL (0-900); Monocytes Percent Auto 13.6 % (3-14); Neutrophils Absolute Auto 4200 /uL (1500-7000); Neutrophils Percent Auto 70.3 % (50-75); Platelet Count 204 X10^3/uL (150-400); Red Blood Cell Count 4.33 X10^6/uL (4.0-5.2); Red Cell Distribution Width 15.1 % (11.6-14.8)
[2023-10-11] MEDS: AZITHROMYCIN 250 MG TABLET 500 MG PO (13:20)
[2023-10-11] MEDS: ACETAMINOPHEN IV 1,000 MG/100 ML VIAL 400 MG IV (13:20)
[2023-10-11 13:23] LABS: Lactate (Lactic Acid) 0.9 mmol/L (0.7-2.1)
[2023-10-11 13:25] LABS: Alanine Aminotransferase 10 IU/L (<35); Albumin 4.1 g/dL (3.5-5.0); Albumin Globulin Ratio 1.2 (1.0-2.8); Alkaline Phosphatase 71 U/L (38-126); Aspartate Aminotransferase 22 IU/L (14-36); BUN Creatinine Ratio 14.7 (6-22); Blood Urea Nitrogen 25 mg/dL (7-17); Calcium 8.3 mg/dL (8.4-10.2); Carbon Dioxide 18 mmol/L (22-32); Chloride 107 mmol/L (98-107); Estimated Glomerular Filt Rate 31 mL/min (>60); Globulin 3.4 g/dL (1.7-4.1); Glucose 103 mg/dL (80-110); HEMOLYSIS < 15 (0-50); Potassium 3.4 mmol/L (3.4-5.1); Sodium 138 mmol/L (137-145); Total Protein 7.5 g/dL (6.3-8.2)
--- NOTE | 2023-10-11 15:16 | P.HP_ITS ---
History of Present Illness History of Present Illness Date Patient Seen: 10/11/23 Time Patient Seen: 15:16 Chief complaint: Dehydrated, Campleobacter infection Narrative: This is a 78 year old female with PMH of crohn's (not currently on medications), diastolic HF, DM, HLD who presented with continued nausea and diarrhea after discharge home from the ER yesterday. Patient has had a few days of ongoing nausea, vomiting, and liquidy diarrhea for the past 5 days. She has been unable to keep anything down since Sunday. She lives on [facility]. She was diagnosed with campylobacter and started on azithromycin by the ER yesterday. She returned today with continued nausea/ vomiting and diarrhea. Her NURYS noted yesterday had improved today, but paitent continued to feel more weak and was febrile to 100.4 in the ER today. She denies hematochezia or melena, no hematemesis. Abdominal pain is squeezing like in the LLQ just prior to bowel movements. She was given IV fluids, admitted for continued treatment and supportive care of campylobacter enteritis. [facility] Medical History Morbid obesity Hyperparathyroidism Grade II diastolic dysfunction Chronic low back pain with sciatica Anemia in chronic kidney disease Angioedema Duodenal ulcer Abnormal Pap smear of cervix Diabetes mellitus Hyperlipidemia GERD (gastroesophageal reflux disease) Crohn's disease Surgical History History of left oophorectomy Status post laparoscopic cholecystectomy Status post cone biopsy of cervix Family History Father Diabetes mellitus Social History household members: family and none Smoking Status: Former smoker alcohol intake: current eating out: rarely or never Type(s) of exercise: walking Meds Home Medications and Allergies Home Medications Medication Instructions Recorded Confirmed Type Accu-Chek Advantage Meter 0 dev topical TID ##0 01/03/19 10/11/23 History insulin syringe-needle U-100 0.5 #100 ea 07/05/20 10/11/23 Rx mL 31 gauge x 5/16 (Advocate Syringes) lancets (Accu-Chek Softclix #300 ea 05/16/21 10/11/23 Rx Lancets) epinephrine 0.3 mg/0.3 mL 0.3 mg (0.3 mL) IM Q5-15M PRN 08/28/22 10/11/23 Rx injection, auto-injector anaphylaxis #2 ea omeprazole 20 mg capsule,delayed See Rx Instructions .Route 01/01/23 10/11/23 Rx release .COMPLEX #90 caps atorvastatin 20 mg tablet See Rx Instructions .Route 02/26/23 10/11/23 Rx .COMPLEX #100 tabs insulin glargine 100 unit/mL See Rx Instructions .Route .COMPLEX 03/08/23 10/11/23 History subcutaneous solution (Lantus U-100 Insulin) blood sugar diagnostic (Accu-Chek #300 strips 03/19/23 10/11/23 Rx Guide test strips) estradiol 0.01% (0.1 mg/gram) 1 g vaginal 3XW #42.5 grams 04/18/23 10/11/23 Rx vaginal cream empagliflozin 25 mg tablet 25 mg PO DAILY #90 tabs 06/28/23 10/11/23 Rx (Jardiance) metformin 500 mg tablet See Rx Instructions .Route 06/28/23 10/11/23 Rx .COMPLEX #60 tabs semaglutide 1 mg/dose (4 mg/3 mL) 1 mg (0.75 mL) SUBCUT QWEEK #9 mL 08/28/23 10/11/23 Rx subcutaneous pen injector (Ozempic) Allergies Allergy/AdvReac Type Severity Reaction Status Date / Time lisinopril Allergy Severe Swelling Verified 10/11/23 12:20 of Lip/Tongue/Throat Iodinated Contrast Media Allergy Verified 10/11/23 12:20 Review of Systems Review of Systems Narrative: All other systems reviewed with the patient and are negative unless otherwise stated. Exam Vital Signs (past 8 hours): - 10/11/23 12:18 10/11/23 13:47 10/11/23 13:48 Temperature 100.4 F H Pulse Rate 99 H 88 88 Respiratory Rate 15 Blood Pressure 139/65 Pulse Oximetry 97 96 93 Oxygen Delivery Method Room Air 10/11/23 13:48 10/11/23 14:00 10/11/23 14:00 Temperature Pulse Rate 85 Respiratory Rate Blood Pressure 101/55 L 93/51 L Pulse Oximetry 96 Oxygen Delivery Method Oxygen Delivery Method Room Air Narrative Exam Narrative: General:? mildly ill appearing, weak but ambulatory without assistance HEENT:? Normocephalic, atraumatic, extraocular muscles intact, oral pharynx is clear and mucous membranes are dry. Neck: supple and symmetric, trachea is midline, no cervical adenopathy. Chest:? Normal AP diameter and contour without kyphoscoliosis, no tachypnea, equal chest rise bilaterally. Lungs:? CTA b/l no wheezing rhonchi or rales. Cardio:?RRR no m/r/g. Abdomen: S, mild b/l lower quadrant tenderness. Musculoskeletal:? Muscle strength and tone are equal within normal limits, no deformity. Extremities: No edema or joint effusions. No cyanosis or clubbing. Skin:? Pale,? Warm to touch,dry and intact without rashes, ulcerations or petechiae.? Neuro:? Alert and orientated x3,? sensation to touch intact in all extremities, no gross deficits noted of cranial nerves. Psych:? Patient has a well-kept appearance, appropriate affect, mental status attitude thought context and judgment are appropriate for age. Objective Labs 10/11/23 12:54 10/11/23 12:54 Labs: Laboratory Results - last 24 hr 10/11/23 12:54 WBC 6.0 RBC 4.33 Hgb 11.8 L Hct 35.8 L MCV 82.7 MCH 27.3 MCHC 33.1 RDW 15.1 H Plt Count 204 Neut % (Auto) 70.3 Lymph % (Auto) 14.5 L Cecil % (Auto) 13.6 Eos % (Auto) 1.1 L Baso % (Auto) 0.5 Neut # (Auto) 4200 Lymph # (Auto) 900 L Cecil # (Auto) 800 Eos # (Auto) 100 Baso # (Auto) 0 Sodium 138 Potassium 3.4 Chloride 107 Carbon Dioxide 18 L BUN 25 H Creatinine 1.70 H Estimated GFR 31 L BUN/Creatinine Ratio 14.7 Glucose 103 Lactate 0.9 Calcium 8.3 L Total Bilirubin 1.0 AST 22 ALT 10 Alkaline Phosphatase 71 Total Protein 7.5 Albumin 4.1 Globulin 3.4 Albumin/Globulin Ratio 1.2 Assessment & Plan Assessment & Plan narrative: 1. Bacterial enteritis due to campylobacter - continue azithomycin 500 mg daily for 3 total doses (2nd dose was given today, only one more dose tomorrow). - continue IV fluids, anti-nauseal medications 2. NURYS likely due to hypovolemia - continue IV fluids overnight, monitor renal function 3. crohn's disease - not currently on medications, if no improvement consider treatment for possible flare but currently appears unlikely. 4. DM - conintue home glargine, hold jardiance and metformin - continue fingersticks ACHS with sliding scale Code: Full, surrogate is patient's daughter DVT: Lovenox daily I have utilized all available immediate resources to obtain, update, or review the patient's current medications. Dispo: patient admitted under observation status with probable discharge home tomorrow depending on patient's ongoing enteritis response to above treatments. Additional history obtained via discussions with the ER provider. These discussions contributed to the creation of the above assessment and plan. I have reviewed patient's presenting documentation, labs, and imaging personally.
[2023-10-11] MEDS: SODIUM CHLORIDE 0.9% 1,000 ML 100 ML IV (16:00)
--- NOTE | 2023-10-11 16:19 | PC.ADMIT ---
[email or web address] [facility] Admission Note: The patient,Nani Morton,78 y/o, was given written information regarding hospital policies, unit procedures and contact persons. Patient's smoking status: Former smoker. Vital Signs - 8 hr 10/11/23 12:18 10/11/23 13:47 10/11/23 13:48 Temperature 100.4 F H Pulse Rate 99 H 88 88 Respiratory Rate 15 Blood Pressure 139/65 Pulse Oximetry 97 96 93 Oxygen Delivery Method Room Air 10/11/23 13:48 10/11/23 14:00 10/11/23 14:00 Temperature Pulse Rate 85 Respiratory Rate Blood Pressure 101/55 L 93/51 L Pulse Oximetry 96 Oxygen Delivery Method 10/11/23 14:22 10/11/23 14:22 10/11/23 15:27 Temperature Pulse Rate 89 85 Respiratory Rate 16 Blood Pressure 103/53 L 108/63 Pulse Oximetry 95 95 Oxygen Delivery Method Room Air Pt arrived from ED via wheelchair, able to ambulate to bed and assist with changing into gown, VSS, RAC IV connected to NS @100ml/hr, denies pain, oriented to room and call light system, bed low and locked, call light within reach, no further needs at this time.
[2023-10-11] MEDS: ATORVASTATIN 20 MG TABLET PO (20:38)
[2023-10-12] VITALS: BP 106/58; PULSE 79; RESP 16; TEMP 36.5; O2SAT 95
[2023-10-12] MEDS: SODIUM CHLORIDE 0.9% 1,000 ML 100 ML IV (01:15)
[2023-10-12 04:00] VITALS: BP 129/66; PULSE 84; RESP 16; TEMP 36.6; O2SAT 95
[2023-10-12] MEDS: PANTOPRAZOLE DR 20 MG TABLET PO (06:25)
[2023-10-12 08:00] VITALS: BP 122/59; PULSE 65; RESP 21; TEMP 36.1; O2SAT 99
[2023-10-12] MEDS: ENOXAPARIN 40 MG/0.4 ML SYRINGE SUBCUT (08:40)
[2023-10-12 09:22] LABS: BUN Creatinine Ratio 12.7 (6-22); Blood Urea Nitrogen 17 mg/dL (7-17); Calcium 7.9 mg/dL (8.4-10.2); Carbon Dioxide 22 mmol/L (22-32); Chloride 112 mmol/L (98-107); Estimated Glomerular Filt Rate 41 mL/min (>60); Glucose 107 mg/dL (80-110); HEMOLYSIS < 15 (0-50); Magnesium 1.2 mg/dL (1.6-2.3); Potassium 3.3 mmol/L (3.4-5.1); Sodium 140 mmol/L (137-145)
--- NOTE | 2023-10-12 09:33 | P.DS_ITS ---
History of Present Illness History of Present Illness Date Patient Seen: 10/12/23 Time Patient Seen: 09:34 Chief complaint: Dehydrated, Campleobacter infection Narrative: This is a 78 year old female with PMH of crohn's (not currently on medications), diastolic HF, DM, HLD who presented with continued nausea and diarrhea after discharge home from the ER yesterday. Patient has had a few days of ongoing nausea, vomiting, and liquidy diarrhea for the past 5 days. She has been unable to keep anything down since Sunday. She lives on [facility]. She was diagnosed with campylobacter and started on azithromycin by the ER yesterday. She returned today with continued nausea/ vomiting and diarrhea. Her NURYS noted yesterday had improved today, but paitent continued to feel more weak and was febrile to 100.4 in the ER today. She denies hematochezia or melena, no hematemesis. Abdominal pain is squeezing like in the LLQ just prior to bowel movements. She was given IV fluids, admitted for continued treatment and supportive care of campylobacter enteritis. Discharge Providers Provider Date of admission: 10/11/23 14:53 Discharge Date: 10/12/23 Primary care physician: Jovan Nichols MD Discharge provider: Ced Alcaraz DO Summary Hospital Course Discharge Diagnosis: 1. Bacterial enteritis due to campylobacter 2. NURYS due to hypovolemia 3. crohn's disease 4. DM 5. Hypokalemia and hypomagnesemia, acute Hospital Course: 78 F admitted with persistent nausea/vomiting and dehydration with NURYS due to bacterial enteritis with campylobacter. She was treated with azithromycin, and completed her 3rd total dose while still in the hospital. Her renal function continued to improve the following day. She still had diarrhea, but this was tolerable and she was able to tolerate adequate oral intake the following morning and wished to discharge home. No changes to her usual home medications were recommended. Magnesium and potassium were repleted orally prior to discharge. Time Spent with Patient Time spent: Less than 30 minutes Exam Vital Signs (past 8 hours): - 10/12/23 04:00 10/12/23 08:00 Temperature 97.9 F 97.0 F L Pulse Rate 84 65 Respiratory Rate 16 21 Blood Pressure 129/66 122/59 L Pulse Oximetry 95 99 Oxygen Flow Rate 0 0 Oxygen Delivery Method Room Air Oxygen Flow Rate 0 Narrative Exam Narrative: General:?no acute distress, eating breakfast HEENT:? Normocephalic, atraumatic, extraocular muscles intact, oral pharynx is clear and mucous membranes are moist Neuro:? Alert and orientated x3,? sensation to touch intact in all extremities, no gross deficits noted of cranial nerves. Psych:? Patient has a well-kept appearance, appropriate affect, mental status attitude thought context and judgment are appropriate for age. Objective Labs 10/11/23 12:54 10/12/23 08:45 Labs: Laboratory Results - last 24 hr 10/11/23 10/12/23 12:54 08:45 WBC 6.0 RBC 4.33 Hgb 11.8 L Hct 35.8 L MCV 82.7 MCH 27.3 MCHC 33.1 RDW 15.1 H Plt Count 204 Neut % (Auto) 70.3 Lymph % (Auto) 14.5 L Anderson % (Auto) 13.6 Eos % (Auto) 1.1 L Baso % (Auto) 0.5 Neut # (Auto) 4200 Lymph # (Auto) 900 L Anderson # (Auto) 800 Eos # (Auto) 100 Baso # (Auto) 0 Sodium 138 140 Potassium 3.4 3.3 L Chloride 107 112 H Carbon Dioxide 18 L 22 BUN 25 H 17 Creatinine 1.70 H 1.34 H Estimated GFR 31 L 41 L BUN/Creatinine Ratio 14.7 12.7 Glucose 103 107 Lactate 0.9 Calcium 8.3 L 7.9 L Magnesium 1.2 L Total Bilirubin 1.0 AST 22 ALT 10 Alkaline Phosphatase 71 Total Protein 7.5 Albumin 4.1 Globulin 3.4 Albumin/Globulin Ratio 1.2 PFSH Medical History Morbid obesity Hyperparathyroidism Grade II diastolic dysfunction Chronic low back pain with sciatica Anemia in chronic kidney disease Angioedema Duodenal ulcer Abnormal Pap smear of cervix Diabetes mellitus Hyperlipidemia GERD (gastroesophageal reflux disease) Crohn's disease Surgical History History of left oophorectomy Status post laparoscopic cholecystectomy Status post cone biopsy of cervix Family History Father Diabetes mellitus Social History household members: family and none Smoking Status: Former smoker alcohol intake: current eating out: rarely or never Type(s) of exercise: walking Discharge Plan Discharge Plan Patient Disposition: Home Provider Discharge Comment: You were admitted to the hospital for NURYS due to dehydration after campylobacter infection. You have treated this with antibiotics. You can take one more antibiotic pill here or at home (due at 1pm). Today's dose should be the final dose of this antibiotic. You can take imodium to slow diarrhea, and zofran for nausea. No other medication changes are needed. Discharge orders & Medications Prescriptions: New ondansetron HCl 4 mg tablet 4 mg PO Q8H PRN (Reason: nausea and vomiting) 30 Days Qty: 30 0RF Continued (DME) insulin syringe-needle U-100 [Advocate Syringes] 0.5 mL 31 gauge x 5/16 syringe See Rx Instructions .ROUTE .MEDSUPPLY Qty: 100 3RF Rx Instructions: As directed (DME) lancets [Accu-Chek Softclix Lancets] Misc See Rx Instructions .ROUTE .COMPLEX Qty: 300 3RF Dose Instruction: USE DIRECTED Rx Instructions: USE DIRECTED omeprazole 20 mg capsule,delayed release(DR/EC) See Rx Instructions .ROUTE .COMPLEX Qty: 90 3RF Dose Instruction: TAKE 1 CAPSULE BY MOUTH DAILY Rx Instructions: TAKE 1 CAPSULE BY MOUTH DAILY atorvastatin 20 mg tablet See Rx Instructions .ROUTE .COMPLEX Qty: 100 2RF Dose Instruction: TAKE 1 TABLET BY MOUTH IN THE EVENING Rx Instructions: TAKE 1 TABLET BY MOUTH IN THE EVENING (DME) Accu-Chek Guide test strips Strip See Rx Instructions .ROUTE .COMPLEX Qty: 300 3RF Dose Instruction: USE DIRECTED Rx Instructions: USE DIRECTED estradiol 0.01 % (0.1 mg/gram) cream 1 g vaginal 3XW Qty: 42.5 12RF Rx Instructions: 1 gm PV HS 3x weekly Ozempic 1 mg/dose (4 mg/3 mL) pen injector 1 mg SUBCUT QWEEK Qty: 9 3RF insulin glargine [Lantus U-100 Insulin] 100 unit/mL solution See Rx Instructions .ROUTE .COMPLEX Patient Comments: [NO ORIGINAL SIG] Rx Instructions: as directed by doctor Jardiance 25 mg tablet 25 mg PO DAILY Qty: 90 3RF Rx Instructions: Take after 10mg tab is finished metformin 500 mg tablet See Rx Instructions .ROUTE .COMPLEX Qty: 60 11RF Dose Instruction: TAKE 1 TABLET BY MOUTH TWICE DAILY Rx Instructions: TAKE 1 TABLET BY MOUTH TWICE DAILY Accu-Chek Advantage Meter 0 dev topical TID Qty: 0 epinephrine 0.3 mg/0.3 mL auto-injector 0.3 mg IM Q5-15M PRN (Reason: anaphylaxis) Qty: 2 0RF Rx Instructions: do not exceed 3 doses per episode Follow up/Referrals: Jovan Nichols MD [Primary Care Provider] - (*Appt on , September with at 3:30 pm. [phone]) Diet/Activity/Treatments Diet: Diet as Tolerated, Regular and Carb-consistent/Diabetic Activity: As tolerated, no restrictions Visit Report/Discharge Packet Instructions: DI for Enteritis Stand Alone Forms: Patient Portal/API, Stroke Signs & Symptoms Discharge Data Primary Care Provider: Jovan Nichols Attending Provider: Ced Alcaraz Admsilvio Date/Time: 10/11/23 14:53
[2023-10-12] MEDS: MAGNESIUM CHLORIDE 64 MG TABLET 128 MG PO (11:57)
[2023-10-12] MEDS: POTASSIUM CHLORIDE 20 MEQ TAB 40 MEQ PO (11:57)
[2023-10-12] MEDS: AZITHROMYCIN 250 MG TABLET 500 MG PO (11:58)
--- NOTE | 2023-10-12 12:16 | PC.NURSE ---
Day shift: Paperwork signed and all questions answered. Pt has all perosnal belongings. scripts sent electronic to Pt's pharmacy. Pt's Daughter is [place] [facility] Left unit via WC at approx 1210. Taken by COURTNEY Valencia.
--- NOTE | 2023-10-12 14:01 | CM.DANOTE ---
Discharge Planning/Care Management CM Discharge Assessment Start: 10/12/23 13:39 Freq: Status: Active Protocol: Document 10/12/23 13:39 LUCILA (Rec: 10/12/23 14:00 LUCILA [id number]) Discharge Planning Assessment Assigned Clinical Office Technician RACHEL Holbrook DPOA/Assigned Designee Name Jyoti Morton, rachel Contact Information [phone] Advance Directives? Yes: POLST Advance Directives on File No History Provided By Medical Record Prior Living Arrangements House Household Members family,none Type of transporation used prior to Drives own vehicle admit Independent with ADL's Yes Is patient alert and oriented? Yes Barriers to Discharge No Comment Admitted OBS for management of Bacterial enteritis due to recent dx of campylobacter. Discharged home today w/family to assist as needed. Close outpatient f/u recommended. No needs identifed by this CM team. Discharge Plan Home Transportation Arrangement Home w/family Referrals Initiated None needed
== END 2023-10-12 12:21 | disposition home or self-care (01) ==
LOC: ED 12:26 → AC 14:54
PROVIDERS: Admitting Provider Internal Medicine; Emergency Provider Emergency Medicine; Family Provider Family Medicine; PCP Family Medicine; Referring Provider Emergency Medicine; Visit Provider Internal Medicine
DX: A04.5 Campylobacter enteritis (principal); N17.9 Acute kidney failure, unspecified; E86.1 Hypovolemia; E86.0 Dehydration; E11.9 Type 2 diabetes mellitus without complications; Z79.4 Long term (current) use of insulin
CPT/HCPCS: 36415; 80048; 80053; 82962; 83605; 83735; 85025; 87040; 96361; 96365; 96372; 96375; 99284; G0378; J0136; J1650; J2405

== ENCOUNTER → 2023-10-16 16:14 | Outpatient (CLI) | payer MEDICARE, MEDICAID, SELFPAY ==
[2019-01-05 10:35] VITALS: PULSE 57; RESP 16; O2SAT 93
[2023-10-11 15:51] VITALS: BMI 28.8
[2023-10-16 18:38] LABS: Alanine Aminotransferase 19 IU/L (<35); Albumin Globulin Ratio 1.2 (1.0-2.8); Alkaline Phosphatase 59 U/L (38-126); Aspartate Aminotransferase 30 IU/L (14-36); BUN Creatinine Ratio 6.9 (6-22); Bilirubin Total 0.5 mg/dL (0.2-1.3); Blood Urea Nitrogen 10 mg/dL (7-17); Calcium 9.1 mg/dL (8.4-10.2); Carbon Dioxide 25 mmol/L (22-32); Chloride 110 mmol/L (98-107); Estimated Glomerular Filt Rate 37 mL/min (>60); Globulin 3.4 g/dL (1.7-4.1); Glucose 133 mg/dL (80-110); HEMOLYSIS < 15 (0-50); Potassium 3.5 mmol/L (3.4-5.1); Sodium 142 mmol/L (137-145); Total Protein 7.4 g/dL (6.3-8.2)
== END ==
PROVIDERS: Family Provider Family Medicine; PCP Family Medicine; Referring Provider Family Medicine; Visit Provider Family Medicine
DX: N17.9 Acute kidney failure, unspecified (principal); A04.5 Campylobacter enteritis; R39.198 Other difficulties with micturition
CPT/HCPCS: 36415; 80053; 83735

== ENCOUNTER → 2023-10-18 14:33 | Outpatient (CLI) | payer MEDICARE, MEDICAID, SELFPAY ==
[2019-01-05 10:35] VITALS: PULSE 57; RESP 16; O2SAT 93
[2023-10-11 15:51] VITALS: BMI 28.8
[2023-10-18 15:04] LABS: Appearance Urine UA CLEAR; Bilirubin Urine UA NEGATIVE (NEGATIVE); Color Urine UA YELLOW; Glucose Urine UA 3+ g/dL (Negative); Ketones Urine UA NEGATIVE (NEGATIVE); Leukocyte Esterase Urine UA NEGATIVE (NEGATIVE); Nitrite Urine UA NEGATIVE (Negative); Occult Blood Urine UA NEGATIVE (Negative); Protein Urine UA NEGATIVE (Negative); Specific Gravity Urine UA <=1.005 (1.000-1.035); Urobilinogen Urine UA 0.2 E.U./dL (0.2)
[2023-10-18 15:13] LABS: Amorphous Sediment Urine 1+; Bacteria Urine None Seen; Culture Indicated Urine Cult Not Indicated; Mucus Urine 1+ (Negative); RBC Urine None Seen (0-5/HPF); Squamous Epithelial Cell Urine 1-5 /HPF (0-5/HPF); WBC Urine 0-1/HPF (0-5/HPF)
== END ==
PROVIDERS: Family Provider Family Medicine; PCP Family Medicine; Referring Provider Family Medicine; Visit Provider Family Medicine
DX: N17.9 Acute kidney failure, unspecified (principal); A04.5 Campylobacter enteritis; R39.198 Other difficulties with micturition
CPT/HCPCS: 81001

== ENCOUNTER → 2023-12-04 15:48 | Outpatient (CLI) | payer MEDICARE, MEDICAID, SELFPAY ==
[2019-01-05 10:35] VITALS: PULSE 57; RESP 16; O2SAT 93
[2023-10-11 15:51] VITALS: BMI 28.8
--- NOTE | 2023-12-04 15:54 | EKG_ITS ---
[address] [address] [address] [place] [address] Test Date: 2023-12-04 Pat Name: Nani Morton Department: [facility] Room: Gender: Female [employer] Developer: GEOVANNA : 1945 Requested By: Order Number: [id number] Reading MD: Toney Sanford MD Measurements Intervals [place] Rate: 82 P: 35 MN: 132 QRS: 0 QRSD: 72 T: 14 QT: 376 QTc: 439 Interpretive Statements Normal sinus rhythm Electronically Signed On 12-04-2023 16:31:12 PDT by Toney Sanford MD
[2023-12-04 17:07] LABS: Add Manual Diff / Slide Review NO; Basophils Absolute Auto 0 /uL (0-100); Basophils Percent Auto 0.6 % (0-2); Eosinophils Absolute Auto 100 /uL (0-450); Eosinophils Percent Auto 1.1 % (2-4); Hematocrit 33.8 % (36-46); Hemoglobin 11.1 g/dL (12.0-16.0); Lymphocytes Absolute Auto 1400 /uL (1100-4500); Lymphocytes Percent Auto 21.7 % (25-40); Mean Corpuscular HGB Conc 32.8 % (30-36); Mean Corpuscular Hemoglobin 27.5 PG (26-34); Mean Corpuscular Volume 83.8 fL (80-100); Monocytes Absolute Auto 500 /uL (0-900); Neutrophils Absolute Auto 4600 /uL (1500-7000); Neutrophils Percent Auto 69.6 % (50-75); Platelet Count 230 X10^3/uL (150-400); Red Blood Cell Count 4.03 X10^6/uL (4.0-5.2); Red Cell Distribution Width 15.6 % (11.6-14.8); White Blood Cell Count 6.6 X10^3/uL (4.5-11.0)
[2023-12-04 17:21] LABS: Hemoglobin A1C% w Est Avg Glu 5.8 % (4.0-6.0)
[2023-12-04 17:32] LABS: HEMOLYSIS < 15 (0-50)
[2023-12-04 17:34] LABS: Albumin 4.1 g/dL (3.5-5.0); BUN Creatinine Ratio 13.8 (6-22); Blood Urea Nitrogen 22 mg/dL (7-17); Carbon Dioxide 27 mmol/L (22-32); Chloride 107 mmol/L (98-107); Estimated Glomerular Filt Rate 33 mL/min (>60); Glucose 168 mg/dL (80-110); Potassium 4.5 mmol/L (3.4-5.1); Sodium 142 mmol/L (137-145)
[2023-12-04 17:45] LABS: Prealbumin 27.3 mg/dL (17.6-36.0)
[2023-12-04 17:51] LABS: Vitamin D 25 Hydroxy (D3) 43.5 ng/mL (30.0-100.0)
[2023-12-04 17:53] LABS: Creatinine Urine Random 82.53 mg/dL; Protein (Total) Urine Random 12 mg/dL (0-12); Protein Creatinine Ratio Urine 0.14 GRAM/24H
== END ==
LOC: LAB 15:51
PROVIDERS: Student in an Organized Health Care Education/Training Program; Family Provider Family Medicine; PCP Family Medicine; Referring Provider Orthopaedic Surgery Adult Reconstructive Orthopaedic Surgery; Visit Provider Orthopaedic Surgery Adult Reconstructive Orthopaedic Surgery
DX: Z01.818 Encounter for other preprocedural examination (principal); R73.9 Hyperglycemia, unspecified; E55.9 Vitamin D deficiency, unspecified; R77.0 Abnormality of albumin; D70.9 Neutropenia, unspecified; D63.1 Anemia in chronic kidney disease; N25.81 Secondary hyperparathyroidism of renal origin; Z01.812 Encounter for preprocedural laboratory examination; N05.9 Unspecified nephritic syndrome with unspecified morphologic changes; R80.9 Proteinuria, unspecified
CPT/HCPCS: 36415; 80048; 82040; 82306; 82570; 83036; 83970; 84134; 84156; 85025; 93005

== ENCOUNTER → 2024-01-10 12:19 | Outpatient (CLI) | payer MEDICARE, MEDICAID, SELFPAY ==
[2019-01-05 10:35] VITALS: PULSE 57; RESP 16; O2SAT 93
[2023-10-11 15:51] VITALS: BMI 28.8
--- NOTE | 2024-01-10 | DI.MRI.S_ITS ---
PROCEDURE: MR CERVICAL SPINE WO CON INDICATIONS: CERVICAL RADICULOPATHY TECHNIQUE: Noncontrast sagittal T1 spin echo and T2 fast spin echo, sagittal STIR, foraminal oblique sagittal T2 fast spin echo, and axial gradient echo or T2 fast spin echo through the cervical spine. COMPARISON: None. FINDINGS: Image quality: Excellent. Alignment and Curvature: There is loss of normal lumbar lordosis. There is 3 mm of anterolisthesis of C7 on T1. Bone Marrow: Marrow demonstrates normal overall signal. There is moderate reactive signal within the endplates adjacent to the C3-C4 and C6-C7 intervertebral discs. Mild reactive signal within the remaining cervical and upper thoracic endplates. Spinal Cord: Visualized spinal cord has normal size and signal. No cerebellar tonsillar herniation. Paraspinous Soft Tissues: No paravertebral masses. Prevertebral soft tissues are normal in thickness. C2-C3: Moderate disc desiccation. Mild diffuse disc bulge. Mild facet and uncovertebral hypertrophy. Mild canal stenosis. Moderate left and mild right foraminal stenosis. C3-C4: Moderate disc height loss and desiccation. Mild diffuse disc bulge/osteophyte. Mild facet and uncovertebral hypertrophy. Mild canal stenosis. Moderate left and severe right foraminal stenosis. Right C4 nerve root compression. C4-C5: Moderate disc desiccation. Mild disc height loss and diffuse disc bulge. Mild facet uncovertebral hypertrophy bilaterally. Mild canal stenosis. Moderate left and severe right foraminal stenosis. Right C5 nerve root compression. C5-C6: Severe disc height loss and desiccation. Mild diffuse disc bulge. Mild facet and uncovertebral hypertrophy bilaterally. Mild canal stenosis. Moderate bilateral foraminal stenosis. C6-C7: Moderate disc height loss and desiccation. Mild diffuse disc bulge. Mild facet and uncovertebral hypertrophy bilaterally. Mild canal stenosis. Mild right and severe left foraminal stenosis. Left C7 nerve root compression. C7-T1: Moderate disc height loss and desiccation. Mild diffuse disc bulge. Mild facet and uncovertebral hypertrophy bilaterally. Mild canal stenosis. Mild right and moderate left foraminal stenosis. IMPRESSION: 1. Multilevel degenerative disc and facet disease, as well as uncovertebral hypertrophy. 2. Mild multilevel canal stenoses. 3. Multilevel foraminal stenoses, worst at C3-C4, C4-C5, and C6-C7, where there is associated intraforaminal nerve root compression. Recommend correlation with clinical symptoms to ascertain relevance of these findings. Dictated by: Rocky Rangel M.D. on 01/10/2024 at 14:14 Approved by: Rocky Rangel M.D. on 01/10/2024 at 14:25
== END ==
LOC: MRI 12:20
PROVIDERS: Family Provider Family Medicine; PCP Family Medicine; Referring Provider Physical Medicine & Rehabilitation; Visit Provider Physical Medicine & Rehabilitation
DX: M50.11 Cervical disc disorder with radiculopathy, high cervical region (principal); M47.22 Other spondylosis with radiculopathy, cervical region; M48.02 Spinal stenosis, cervical region
CPT/HCPCS: 72141

== ENCOUNTER 2024-01-12 12:26 | Inpatient (IN) | payer MEDICARE, MEDICAID, SELFPAY ==
[2019-01-05 10:35] VITALS: PULSE 57; RESP 16; O2SAT 93
[2023-10-11 15:51] VITALS: BMI 28.8
[2024-01-09 12:45] VITALS: BMI 31.6
[2024-01-11] VITALS (8 sets, daily range): BP systolic 122–150; BP diastolic 61–85; PULSE 74–93; RESP 13–18; TEMP 36.1–36.7; O2SAT 94–98; BMI 28.3
--- NOTE | 2024-01-11 06:00 | DI.RAD.S_ITS ---
PROCEDURE: XR KNEE LT 1TO2V INDICATIONS: TKA TECHNIQUE: 2 view(s) of the knee acquired. COMPARISON: [facility], CR, XR KNEE LT 3V, 02/10/2021, 10:52. FINDINGS: Bones: Patient is status post knee joint arthroplasty. Hardware components are in expected positions. Visualized bony structures are intact. Soft tissues: Overlying postoperative changes are noted. IMPRESSION: Expected post-operative appearance of a knee arthroplasty. Dictated by: Kel Ramirez M.D. on 01/12/2024 at 0:33 Approved by: Kel Ramirez M.D. on 01/12/2024 at 0:33
[2024-01-11] MEDS: MELOXICAM 7.5 MG TABLET 15 MG PO (11:13)
[2024-01-11] MEDS: ACETAMINOPHEN 325 MG TABLET 975 MG PO (11:13)
[2024-01-11] MEDS: LACTATED RINGERS 1,000 ML 42 ML IV ×2 (11:14→15:30)
[2024-01-11] MEDS: CEFAZOLIN 2 GM/100 ML PREMIX 100 ML IV (14:11)
[2024-01-11] MEDS: TRANEXAMIC ACID 1,000 MG VIAL 2000 MG INJ ×2 (14:25→15:29)
--- NOTE | 2024-01-11 14:49 | SUR.OPER ---
Supine on padded OR bed. Pillow under head, arms secured on padded armboards <90 degree abduction. Safety belt across torso. Non-operative leg secured with tape over blanket over lower leg. Operative leg secured in Jose E. Foam padded brace at thigh of operative leg.
[2024-01-11] MEDS: ROPIVACAINE/EPI/CLONIDINE/KET 50 ML SYRINGE INJ (14:55)
--- NOTE | 2024-01-11 16:01 | PM.OP.1 ---
Operative Date/Time/Diagnoses Date of procedure: 01/11/24 Pre-op diagnosis: Left knee osteoarthritis Post-op diagnosis: same Procedure & Clinicians Procedure: Left total knee arthroplasty Same procedure as scheduled: Yes Surgeon: Adama Rebollar Leather Goods Ii Assembler: Dora Price Anesthesia Type: Spinal, Sedation, Peripheral nerve block and Local Operative Notes Estimated Blood Loss (mL): 150 Procedure in detail: Left Gap-Balanced Jazmin Persona Medial-Congruent Primary Total Knee Arthroplasty Implants: Size 5 narrow Cruciate Retaining Femoral Component Size C Tibial Component Size 10 Medial Congruent Polyethylene Insert Unresurfaced Patella Procedure Summary: This 78-year-old female patient had a varus knee which balanced without the need for soft tissue releases. The flexion gap balanced at 7? of external rotation. The knee did not hyperextend with a 10 mm polyethylene insert and there was no excess tightness in flexion so this size was utilized for final implantation. Procedure in Detail: This patient was seen preoperatively and evaluated for knee pain which was refractory to numerous nonoperative treatment modalities. Their pain correlated with radiographic changes demonstrating significant degeneration in the knee joint. The risks and benefits of continued nonoperative management versus operative management were discussed at length and all of the patient?s questions were answered. Additional educational materials providing further details beyond our discussion in clinic were provided via a publicly available patient education video which included the incidence of medical complications associated with total knee arthroplasty, reasons for revision following total knee arthroplasty, and patient satisfaction rates following total knee arthroplasty. That video can be accessed at [email or web address] . With this understanding of the risks inherent to the procedure, the patient elected to move forward with operative management. Following preoperative optimization, the patient was scheduled for surgery. The patient was met in the preoperative holding area the day of the procedure and all questions were answered. The patient?s nares were swabbed with betadine in order to decolonize them from MRSA. Informed consent was signed and the left limb was marked with indelible ink.? The patient was brought back to the operating room where anesthesia was induced. The patient was transferred to the operating table and all bony prominences were padded. The operative site was prepped and draped in the usual sterile fashion. A second prep stick was utilized following drape placement. The incision was marked corresponding to the medial aspect of the tibial tubercle and the patella. Ioban was wrapped circumferentially around the knee. Prior to incision, tranexamic acid and cefazolin were administered. Templating images were displayed. A timeout procedure was performed verifying the patient?s identity, medical comorbidities, allergies, relevant medications, anesthesia type and the surgical plan. All present were in agreement. The assistance of a physician environmental emergencies assistant was required for positioning, room setup, soft tissue retraction and wound closure. Without this assistance, the procedure would have been significantly more challenging and time consuming.?? The tourniquet was inflated prior to incision. I made an anterior incision over the knee, dissected through the subcutaneous tissues and identified the lateral border of the VMO. Medial and lateral soft tissue flaps were developed. A medial parapatellar arthrotomy was performed ensuring that adequate capsular tissue would remain for closure at the conclusion of the procedure. The hip was brought into extension and the medial soft tissues were released off the joint line of the tibia. Tissue overlying the distal anterior femur was released to allow for later assessment for anterior notching but left in place. A portion of the retropatellar fat pad was excised while protecting the patellar tendon. The patella was everted. The patella was not resurfaced. Osteophytes were excised and a lateral facetectomy was performed. The patella was released from its everted position.?? I flexed the knee to 90 degrees and placed retractors to allow access to the notch. An opening reamer was used to gain access to the femoral canal and an intramedullary robinson was introduced into the canal. Diaphyseal fit was obtained in order to allow a distal femoral resection at 5 degrees relative to the anatomic axis, thereby aiming to achieve mechanical alignment of the eventual implant. A +1 resection was planned and assessed using an yesenia wing. I then made the cut using a sagittal saw. This provided additional access to the femoral notch. The ACL and PCL were excised. Retractors were placed on the lateral and medial tibia. I hyperflexed the knee while externally rotating it to sublux the tibia anteriorly. I placed a PCL retractor posteriorly and used this to provide additional anterior subluxation. The remainder of the PCL root was released. An intramedullary reamer was used in the ACL footprint to provide access to the tibial canal. An extramedullary guide was positioned to allow a resection perpendicular to the anatomic and mechanical axes of the tibia, thereby aiming to achieve mechanical alignment of the eventual implant. A +4 resection off the medial tibia was planned and the tibial cutting jig was pinned in place. I evaluated the cut depth, varus-valgus alignment and slope of the planned tibial resection and deemed them satisfactory. I cut the tibia with a sagittal saw while using retractors to protect the MCL, patellar tendon, and posterolateral structures.? The knee was repositioned in extension and the Fuzion soft tissue balancing gauge was introduced. This demonstrated that there was equal tension in the medial and lateral compartments of the knee with the knee in full extension and no additional soft tissue releases were necessary. When 40 pounds of force was applied to the Fuzion device, the extension gap opened to 10 mm. I moved the knee into 90 degrees of flexion, and the Fuzion device was recalibrated by removing a 9 mm zev to allow assessment of the flexion gap. The Fuzion was placed perpendicular to the resected surface of the tibia and the resected surface of the distal femur. Forty pounds of traction was applied to match the tension of the extension gap. This externally rotated the femur to 7 degrees. Pins were placed in the 10 mm holes. The measured resection guide was placed over the pins to allow sizing. Appropriate sizing was determined and a 4-in-1 block was placed. This was double checked using the Fuzion device to ensure that it would open to an equal distance as the extension gap when the same amount of force was applied. The Fuzion block was also used to assess flexion gap symmetry. An yesenia wing was used to ensure there would be no anterior notching. Retractors were placed to protect the soft tissues during resection. Captured cuts were performed with a sagittal saw for the anterior and posterior femur as well as the corresponding chamfers.? Trial components were placed and the construct was assessed. Range of motion was assessed by ensuring the knee could achieve full extension and assessing maximum passive knee flexion by elevating the femur and allowing the heel to passively fall towards the buttock. Gap symmetry was assessed by stressing the medial and lateral compartments in both extension and flexion. Laxity was assessed in both extension and flexion and the polyethylene trial was adjusted with shims as necessary. Patellar tracking was assessed with knee flexion. Once satisfied with the construct, I moved forward with implant insertion. Lug holes were drilled in the femur and the tibia was prepped ensuring appropriate sizing and rotation relative to the tibial tubercle.?? The bony ends were irrigated and cement was prepared. Portions of the anterior chamfer cut were utilized as cement restrictors in the femur and tibia where intramedullar rods had been utilized. Cement was placed on the entirety of the undersurface of both the tibial and femoral components. Cement was placed onto the dry tibia and pressurized into the cancellous bone. I impacted the tibial component into place. Cement was removed. The tibia was reduced underneath the femur and placed cement onto the dry surface of the resected femur. I placed the femoral component as well as the intended polyethylene trial. Cement was removed from around the femur. I brought the knee into extension and manually pressurized the construct by pushing on the heel while the cement dried. The knee was bathed in a dilute mixture of betadine and peroxide. A mixture of Ropivacaine, Epinephrine, Clonidine and Toradol was infiltrated throughout the soft tissues into structures including the VMO, patellar tendon, quadriceps tendon, MCL and femoral periosteum. A low adductor canal block was also performed using this mixture unless one had been placed preoperatively by anesthesia. The knee was copiously irrigated with pulse lavage. Once cement had been allowed to dry the knee was again trialed. Range of motion was assessed by ensuring the knee could achieve full extension and assessing maximum passive knee flexion by elevating the femur and allowing the heel to passively fall towards the buttock. Gap symmetry was assessed by stressing the medial and lateral compartments in both extension and flexion. Laxity was assessed in both extension and flexion and the polyethylene trial was adjusted with shims as necessary. Patellar tracking was assessed with knee flexion. The tourniquet was let down and the polyethylene trial was removed. I inspected the knee inspected for excess cement and any residual bleeding. Once hemostasis was achieved I inserted the final polyethylene and ensured appropriate engagement of the dovetail locking mechanism.?? The arthrotomy was closed with absorbable interrupted suture ensuring that this extended to the top of the arthrotomy. This was backed up with running barbed suture throughout the arthrotomy. The skin was closed with 2-0 and 3-0 sutures. Surgical glue was applied and a soft dressing was placed.?The sponge, instrument and needle counts were reported as being correct at the end of the case.??No obvious complications occurred. The patient was transferred from the operating table back to a stretcher. The patient emerged from anesthesia without difficulty and was taken to the PACU in a stable condition.? Plan for aftercare: Weightbearing as tolerated Mobilization as soon as the patient has recovered from anesthesia. If physical therapists are unavailable at the time the patient is ready to ambulate, then nursing staff should help patient ambulate Aspirin 81 twice per day for DVT prophylaxis Multimodal pain regimen with no IV opioids ordered Anticipate discharge home tomorrow [facility] up at [facility] in 2 weeks Detailed postoperative instructions available at [email or web address]
[2024-01-11] MEDS: ONDANSETRON 4 MG/2 ML INJ IV (17:10)
[2024-01-11] MEDS: LACTATED RINGERS 1,000 ML 100 ML IV (17:12)
[2024-01-11] MEDS: ACETAMINOPHEN 325 MG TABLET 650 MG PO ×2 (17:51→22:15)
[2024-01-11] MEDS: OXYCODONE IR 5 MG TABLET PO ×2 (18:08→22:14)
--- NOTE | 2024-01-11 18:14 | PM.PN.1 ---
Subjective Subjective Interval history: I just checked on Nani postoperatively. She is resting comfortably in bed working on her incentive spirometer with her nurse at this time. She reports having moderate pain. Our pharmacy team consulted with me regarding her renal clearance for opioids and has recommended moving her to tramadol 50 mg every 12 hours and oxycodone 5 mg every 8 hours to accommodate her limited renal clearance. We will also hold anti-inflammatories given her renal issues. She had a recent acute kidney injury on top of her chronic kidney disease and we ensured that this had resolved before proceeding with her surgery today. She requires very transport to her home and this will be arranged by her family tomorrow in conjunction with plans for discharge home likely tomorrow. Currently she still has diminished sensation from her spinal anesthetic but has intact plantar flexion and dorsiflexion in her hallux and ankle and a well-perfused foot. Her dressing is clean dry and intact. Exam Vital Signs (past 8 hours): - 01/11/24 11:40 01/11/24 16:27 01/11/24 16:32 Temperature 97.5 F L 97 F L Pulse Rate 74 90 93 H Respiratory Rate 16 15 13 Blood Pressure 133/65 122/61 127/66 Pulse Oximetry 98 95 94 Oxygen Delivery Method Room Air Room Air Room Air Oxygen Flow Rate 01/11/24 16:37 01/11/24 17:00 01/11/24 17:29 Temperature 98.1 F Pulse Rate 91 H 87 Respiratory Rate 14 16 Blood Pressure 131/68 135/75 Pulse Oximetry 94 96 Oxygen Delivery Method Room Air Nasal Cannula Oxygen Flow Rate 0 Oxygen Delivery Method Nasal Cannula Oxygen Flow Rate 0 [facility] Medical History Morbid obesity Hyperparathyroidism Grade II diastolic dysfunction Chronic low back pain with sciatica Anemia in chronic kidney disease Angioedema Duodenal ulcer Abnormal Pap smear of cervix Diabetes mellitus Hyperlipidemia GERD (gastroesophageal reflux disease) Crohn's disease Surgical History History of left oophorectomy Status post laparoscopic cholecystectomy Status post cone biopsy of cervix Family History Father Diabetes mellitus Social History household members: spouse and none Smoking Status: Former smoker alcohol intake: current eating out: rarely or never Type(s) of exercise: walking Assessment & Plan Time-Based Coding :: [TOTAL MINUTES] spent with patient and on the chart (including review of chart, obtaining history, exam, reviewing outside data, placing orders, documenting exam and treatment plan, and counseling patient) on [DATE]. Quality VTE Deep Vein Thrombosis/Pulmonary Embolism Present on Admission: No
--- NOTE | 2024-01-11 18:15 | PC.NURSE ---
Patient arrived to room 212 this evening at 1700. She is A&OX4, VSS. Noted patient with slightly shallow breathing 02 on RA ranging from 88-97%. 2 LNC placed for support. She reports numbness to LLE, and able to wiggle toes on both BLE, not able to lift legs initially. Shortly after arriving patient c/o nausea and increased pain to L knee. She is medicated with zofran. MD contacted for renal safe dosing of pain medications. Placed ice packs to L knee. Family supportive at bedside. Patient oriented to unit routines, call light in reach, bed alarm on, IVF LR at 100 ml/hr, SCD's on, IS instructed, admission assessment completed. Due to Void at 2230.
[2024-01-11] MEDS: TRAMADOL 50 MG TABLET PO (20:27)
[2024-01-11] MEDS: INSULIN LISPRO 100 UNIT/ML 3ML VIAL SUBCUT (21:28)
[2024-01-11] MEDS: METFORMIN HCL 500 MG TABLET PO (21:29)
[2024-01-11] MEDS: ASPIRIN EC 81 MG TABLET PO (21:29)
[2024-01-11] MEDS: DOCUSATE 100 MG CAPSULE PO (21:29)
[2024-01-11] MEDS: GABAPENTIN 300 MG CAPSULE PO (21:29)
[2024-01-11 23:10] LABS: BUN Creatinine Ratio 19.1 (6-22); Blood Urea Nitrogen 27 mg/dL (7-17); Calcium 8.6 mg/dL (8.4-10.2); Carbon Dioxide 25 mmol/L (22-32); Chloride 102 mmol/L (98-107); Estimated Glomerular Filt Rate 38 mL/min (>60); Glucose 191 mg/dL (80-110); HEMOLYSIS < 15 (0-50); Potassium 4.1 mmol/L (3.4-5.1); Sodium 134 mmol/L (137-145)
[2024-01-12] VITALS: BP 135/76; PULSE 73; RESP 18; TEMP 36.7; O2SAT 97
[2024-01-12] MEDS: CEFAZOLIN VIAL 1 GM in SODIUM CHLORIDE 0.9% 100 ML IV ×2 (02:01→15:11)
[2024-01-12] MEDS: OXYCODONE IR 5 MG TABLET PO ×3 (05:04→22:13)
[2024-01-12] MEDS: ACETAMINOPHEN 325 MG TABLET 650 MG PO ×4 (05:04→22:13)
[2024-01-12 05:09] LABS: Hematocrit 30.8 % (36-46); Hemoglobin 10.3 g/dL (12.0-16.0)
[2024-01-12] MEDS: PANTOPRAZOLE DR 20 MG TABLET PO (06:41)
[2024-01-12 08:00] VITALS: BP 126/66; PULSE 71; RESP 18; TEMP 36.3; O2SAT 96
[2024-01-12] MEDS: TRAMADOL 50 MG TABLET PO ×2 (08:41→20:23)
[2024-01-12] MEDS: SODIUM CHLORIDE 0.9% FLUSH 10 ML IV ×2 (08:42→20:41)
[2024-01-12] MEDS: ONDANSETRON 4 MG/2 ML INJ IV (08:45)
--- NOTE | 2024-01-12 08:45 | P.DS_ITS ---
History of Present Illness History of Present Illness Date Patient Seen: 01/12/24 Time Patient Seen: 08:46 Chief complaint: Left TKA *OPB* Narrative: Knee pain has been moderate. She feels a little dizzy. No shortness of breath or chest pain. She does have assistance at home. Discharge Providers Provider Discharge Date: 01/12/24 Primary care physician: Joavn Nichols MD Consults: 01/11/24 06:00 Consult to Anesthesiology Routine Comment: Consulting Provider: Anesthesiologist Reason for consultation: Regional block for post operative pain control Has provider been notified: No 01/11/24 16:50 Consult to Discharge Planning Routine Comment: Consult to Physical Therapy Evaluate & Treat Comment: Physician Instructions: postop TKA protocol Discharge provider: Edward Salomon PA-C Summary Hospital Course Discharge Diagnosis: Left knee osteoarthritis Hospital Course: Left total knee arthroplasty Same procedure as scheduled: Yes Surgeon: Adama Rebollar Optoelectronic Technician: Dora Price Anesthesia Type: Spinal, Sedation, Peripheral nerve block and Local Operative Notes Estimated Blood Loss (mL): 150 Procedure in detail: Left Gap-Balanced Jazmin Persona Medial-Congruent Primary Total Knee Arthroplasty Implants: * Size 5 narrow Cruciate Retaining Femoral Component * Size C Tibial Component * Size 10 Medial Congruent Polyethylene Insert * Unresurfaced Patella Patient admitted for left total knee arthroplasty. Patient consented to the same. Patient underwent left total knee arthroplasty January 11, 2024. Patient back in her room recovering in stable condition. Patient has felt a little dizzy this morning. She is 3 person assist trying to get her to the restroom last night is now using a bed keating. Patient will work with Physical therapy this morning. We will discharge home after physical therapy if safe for home environment. Status at Discharge Cognitive/behavioral status at discharge: oriented Functional status at discharge: uses cane/walker Overall status at discharge: patient is progressing back to baseline Exam Vital Signs (past 8 hours): - 01/12/24 08:00 Temperature 97.4 F L Pulse Rate 71 Respiratory Rate 18 Blood Pressure 126/66 Pulse Oximetry 96 Fraction of Inspired Oxygen 2.5 Fraction of Inspired Oxygen 2.5 Oxygen Delivery Method Nasal Cannula Oxygen Flow Rate 2.5 Narrative Exam Narrative: 78-year-old female resting comfortably in bed in no apparent distress. Dressing is clean, dry and intact. Motor functions intact bilateral lower extremities. Sensation grossly intact light touch bilateral lower extremities. Const General: cooperative and comfortable Nutritional Appearance: average body habitus Orientation: alert Resp Effort & Inspection: normal respiratory effort and able to speak in complete sentences Objective Labs 01/12/24 04:49 01/11/24 22:35 Labs: Laboratory Results - last 24 hr 01/11/24 01/12/24 22:35 04:49 Hgb 10.3 L Hct 30.8 L Sodium 134 L Potassium 4.1 Chloride 102 Carbon Dioxide 25 BUN 27 H Creatinine 1.41 H Estimated GFR 38 L BUN/Creatinine Ratio 19.1 Glucose 191 H Calcium 8.6 PFSH Medical History Morbid obesity Hyperparathyroidism Grade II diastolic dysfunction Chronic low back pain with sciatica Anemia in chronic kidney disease Angioedema Duodenal ulcer Abnormal Pap smear of cervix Diabetes mellitus Hyperlipidemia GERD (gastroesophageal reflux disease) Crohn's disease Surgical History History of left oophorectomy Status post laparoscopic cholecystectomy Status post cone biopsy of cervix Family History Father Diabetes mellitus Social History household members: spouse and none Smoking Status: Former smoker alcohol intake: current eating out: rarely or never Type(s) of exercise: walking Discharge Assessment & Plan Assessment and Plan Assessment: Stable status post left total knee arthroplasty Plan of Treatment: * Weightbearing as tolerated * Mobilization as soon as the patient has recovered from anesthesia. If physical therapists are unavailable at the time the patient is ready to ambulate, then nursing staff should help patient ambulate * Aspirin 81 twice per day for DVT prophylaxis * Multimodal pain regimen with no IV opioids ordered * Anticipate discharge home tomorrow * Follow up at [facility] in 2 weeks * Detailed postoperative instructions available at [email or web address] Discharge home today after physical therapy if safe for home environment Discharge Plan Discharge Plan Patient Disposition: Home Discharge orders & Medications Discharge Orders: Discharge (Order); Ordered 01/12/24 Ordered By: Edward Salomon Prescriptions: New acetaminophen 325 mg Tablet 650 mg PO Q6H Qty: 60 0RF aspirin 81 mg Tablet,Delayed Release (Dr/Ec) 81 mg PO BID Qty: 60 0RF polyethylene glycol 3350 17 gram Powder In Packet 17 g PO DAILY PRN (Reason: Constipation) Qty: 14 0RF oxycodone 5 mg Tablet 5 mg PO Q8HR Qty: 30 0RF tramadol 50 mg Tablet 50 mg PO Q12H PRN (Reason: Pain, Moderate (4-6)) Qty: 30 0RF Continued (DME) insulin syringe-needle U-100 [[employer]ocate Syringes] 0.5 mL 31 gauge x 5/16 syringe See Rx Instructions .ROUTE .MEDSUPPLY Qty: 100 3RF Rx Instructions: As directed (DME) lancets [Accu-Chek Softclix Lancets] Misc See Rx Instructions .ROUTE .COMPLEX Qty: 300 3RF Dose Instruction: USE DIRECTED Rx Instructions: USE DIRECTED (DME) Accu-Chek Guide test strips Strip See Rx Instructions .ROUTE .COMPLEX Qty: 300 3RF Dose Instruction: USE DIRECTED Rx Instructions: USE DIRECTED Ozempic 1 mg/dose (4 mg/3 mL) pen injector 1 mg SUBCUT QWEEK Qty: 9 3RF epinephrine 0.3 mg/0.3 mL auto-injector 0.3 mg IM Q5-15M PRN (Reason: anaphylaxis) Qty: 2 0RF Rx Instructions: do not exceed 3 doses per episode estradiol 0.01 % (0.1 mg/gram) cream 1 g vaginal 3XW Qty: 42.5 12RF Rx Instructions: 1 gm PV HS 3x weekly Jardiance 25 mg tablet 25 mg PO DAILY Qty: 90 3RF Accu-Chek Advantage Meter 0 dev topical TID Qty: 0 gabapentin 300 mg capsule 300 mg PO BEDTIME insulin glargine [Lantus U-100 Insulin] 100 unit/mL solution See Rx Instructions .ROUTE .COMPLEX Rx Instructions: sliding scale diphenhydramine-acetaminophen [Tylenol PM Extra Strength] 25-500 mg Tablet 2 tab PO BEDTIME PRN (Reason: pain]) metformin 500 mg tablet 500 mg PO BEDTIME omeprazole 20 mg capsule,delayed release(DR/EC) 20 mg PO DAILY atorvastatin 20 mg tablet 20 mg PO DAILY Follow up/Referrals: Jovan Nichols MD [Primary Care Provider] - Adama Rebollar MD [Physician] - (2 weeks as scheduled) Diet/Activity/Treatments Diet: Diet as Tolerated Activity: Weightbearing as tolerated Mobilization as soon as the patient has recovered from anesthesia. If physical therapists are unavailable at the time the patient is ready to ambulate, then nursing staff should help patient ambulate Aspirin 81 twice per day for DVT prophylaxis Multimodal pain regimen with no IV opioids ordered Anticipate discharge home tomorrow Follow up at [facility] in 2 weeks Detailed postoperative instructions available at [email or web address] Cold/Heat Therapy: Ice to knee as needed Skin/Wound/Dressing Care Report to your healthcare provider any signs of infection, such as:: chills, fever, increased pain, unusual drainage and unusual redness Dressing: Keep dressing clean and dry Visit Report/Discharge Packet Instructions: DI for Knee Replacement, DI for Prescription Opioid Use Stand Alone Forms: Patient Portal/API, Surgery Discharge Discharge Data Primary Care Provider: Jovan Nichols Attending Provider: Adama Rebollar Quality VTE Deep Vein Thrombosis/Pulmonary Embolism Present on Admission: No
[2024-01-12 09:03] VITALS: O2SAT 94
[2024-01-12 09:37] VITALS: O2SAT 96
[2024-01-12] MEDS: ASPIRIN EC 81 MG TABLET PO ×2 (10:53→20:23)
[2024-01-12] MEDS: ATORVASTATIN 20 MG TABLET PO (10:53)
[2024-01-12] MEDS: DOCUSATE 100 MG CAPSULE PO ×2 (10:53→20:22)
--- NOTE | 2024-01-12 11:15 | PT.IIE ---
Current Diagnoses Unilateral primary osteoarthritis, left knee (01/11/24) Surgery Performed Operation Date: 01/11/24 13:45 Actual Procedures p Total Knee Arthroplasty(Left) - Adama Rebollar MD Surgical History (Last Reviewed 01/11/24 @ 11:00 by Latrice Martinez, RN) History of left oophorectomy Status post cone biopsy of cervix Status post laparoscopic cholecystectomy Medical History (Last Reviewed 01/11/24 @ 11:00 by Latrice Martinez, RN) Abnormal Pap smear of cervix Anemia in chronic kidney disease Angioedema Chronic low back pain with sciatica Crohn's disease Diabetes mellitus Duodenal ulcer GERD (gastroesophageal reflux disease) Grade II diastolic dysfunction Hyperlipidemia Hyperparathyroidism Morbid obesity Physical Therapy Inpatient Evaluation/Re-Eval M1 PT/OT-IP Prior Functional Status Start: 01/12/24 12:38 Freq: NEEDED Status: Active Protocol: Document 01/12/24 11:15 AB (Rec: 01/12/24 13:05 AB [id number]) Medical Review Prior Functional Status Medical History Reviewed Yes Communication able to make needs known Mobility and Gait pt stated that she was independent with all mobilities and ambulation without AD Social History Household Members significant other,none Living Arrangements House Number of Floors (Floors) One Floor Number of Stairs To Enter/Railing? 3 steps R rail ascending to enter the house Home Environment Standard Height Toilet,Walk in Shower Home Equipment Shower Seat with Backrest,Hand Held Shower,Grab Bars In Shower Additional Social History Comment pt's daughter also will stay and assist pt at home pt has access to bed canes if needed pt has walking sticks M2 PT-IP Current Condition Start: 01/12/24 12:38 Freq: NEEDED Status: Active Protocol: Document 01/12/24 11:15 AB (Rec: 01/12/24 13:05 AB [id number]) Physical Therapy Current Condition Current Condition Evaluation Date 01/12/24 Treatment Diagnosis s/p L TKA; difficulty in walking Onset Date 01/11/24 M3 PT-IP Subjective Start: 01/12/24 12:38 Freq: NEEDED Status: Active Protocol: Document 01/12/24 11:15 AB (Rec: 01/12/24 13:05 AB [id number]) Subjective Physical Therapy Visit Type Type Initial Evaluation Visit Start Time 11:15 Visit Stop Time 11:55 Number of INDUSTRIAL PIPEFITTER JOURNEYMAN Visits 0 Physical Therapy Visit Comments Patient Comments agreeable to do PT Therapy Pain Assessment Pain When Pain Assessed At Rest Pain Present Pain Present Pain Reported Location L knee Intensity 5 Scale Used increases to 8 with movement Pain Behaviors Facial Grimacing,Guarding, Holding Area,Wincing Pain Management Techniques Apply Cold,Distraction, Modification of Treatment,Re- positioning,Timing of Activity with Medications M4 PT-IP Mobility and Gait Start: 01/12/24 12:38 Freq: NEEDED Status: Active Protocol: Document 01/12/24 11:15 AB (Rec: 01/12/24 13:05 AB [id number]) PT-Bed Mobility Assessment Supine to Sit Supine to Sit Minimal Assistance,1 Person Assistance PT-Transfer Assessment Sit to and From Stand Sit to and from Stand Maximum Assistance,1 Person Assistance,Use of Upper Extremities Equipment Transfer Assistive Device Gait Belt,Front Wheeled Walker Orthotic/Prosthetic Devices or Brace: No Transfers Transfer Destination Chair Transfer Technique ambulated Transfer Ability Level of Assist Maximum Assistance,1 Person Assistance,Use of Upper Extremities Comments Mobility Comments pt supine in bed and significant other cynthia in room with pt. otained PLOF and home set up from pt. post-op folder provided and reviewed contents. educated pt on HEP. BP: 124/71 completed heel slides supine prior to moving. pt completed supine to sit min A and max cues for techniques. pt able to sit on EOB ~ min A and cues . c/o increase knee pain. c/o dizziness. BP: 126/74. pt completed sit to stand max A and max cues. pt ambulated to the chair using FWW max A and max cues. c/o increase knee pain. presents with unsteady ambulation with increase posterior LOB with turning. pt agreed to sit up on the chair. positioned pt on the chair. call light and table placed within reach. c/o nausea after ambulation. BP checked: 146/74 informed pt and spouse regarding d/c plan and caregiver training when appropriate. informed nurse and medical case manager regarding pt' s mobility. Gait Assessment Gait Gait Assistance Required: Maximum Assistance Distance (Feet) 12 Able to Maintain Weight Bearing Status Yes During Gait Assistive Devices Assistive Device Gait Belt,Front Wheeled Walker Orthotic/Prosthetic Devices or Brace: No Gait Deviations General Gait Pattern Antalgic,Decreased Stride Length,Decreased Feet Clearance,Step-to Gait Factors Limiting Gait Function Factors Limiting Gait Function Decreased Activity Tolerance, Decreased Strength,Difficulty Following Directions,Limited Range of Motion,Pain,Poor Balance,Poor Safety Awareness PT-Balance Assessment Sitting Balance and Reactions Static Sitting Balance Ability Good Dynamic Sitting Balance Ability Fair Standing Balance and Reactions Static Standing Balance Ability Poor Dynamic Standing Balance Ability Poor Device Used FWW M5 PT-IP Objective Assessments Start: 01/12/24 12:38 Freq: NEEDED Status: Active Protocol: Document 01/12/24 11:15 AB (Rec: 01/12/24 13:05 [id number]) Orientation Orientation/Cognition Level of Alertness Alert Orientation Name,Place,Situation Language Function Ability Hard of Hearing Safety Awareness Decreased Safety Awareness Memory Description No Deficits Noted Gross Range of Motion Lower Extremity ROM Assessment Left Impaired Impairments L knee flexion: ~ 50 deg L knee flexion: ~ 15 deg Strength Lower Extremity Strength Assessment Left Impaired Hip 3+/5 Knee 3+/5 Coordination Assessment Gross Coordination Gross Coordination WNL Sensation Assessment Sensation Gross Sensation WNL Muscle Tone Muscle Tone WNL Yes M6 PT-IP Treatment Start: 01/12/24 12:38 Freq: NEEDED Status: Active Protocol: Document 01/12/24 11:15 AB (Rec: 01/12/24 13:05 [id number]) Physical Therapy Treatment Exercises Exercises Heel Slides Education Education Provided Precautions,Weight Bearing Status,Post-Op Packet,Safety M7 PT-IP Assessment and Plan Start: 01/12/24 12:38 Freq: NEEDED Status: Active Protocol: Document 01/12/24 11:15 AB (Rec: 01/12/24 13:05 [id number]) PT Summary Assessment and Plan Potential Rehabilitation Potential Fair Status of Condition at Evaluation Evolving Summary Impairments Pain,ROM,Strength,Balance, Coordination,Sensation,Tone, Cognition,Bed Mobility, Transfers,Gait,Activity Tolerance Assessment Summary pt is a 78 y/o F s/p L TKA POD 1. pt is WBAT on LLE. pt requiring max A for transfers and ambulation using FWW and only able to walk ~ 12 ft this morning. pt with c/o increase L knee pain affecting mobility level. will continue to assess progress. will conduct caregiver training and stair climbing training when appropriate. Goals Bed Mobility Goal Standby Assistance Transfer Goal Standby Assistance,Front Wheeled Walker Gait Goal Standby Assistance,Front Wheel Walker Gait Distance 150 Other Goals up/down 3 steps R rail ascending SBA Days to Meet Goals 5 Frequency of Treatment Frequency Of Treatment Twice a Day Treatment Plan Physical Therapy Treatment Plan Bed Mobility Training,Transfer Training,Gait Training, Therapeutic Exercise,Balance Retraining,Post Op Education, Discharge Planning,Hot or Cold Pack,Neuromuscular Re-ed, Coordination Retraining,Manual Therapy Weight Bearing Status Weight Bearing Status Weight Bear as Tolerated Allowed Weight Bearing Amount (enter % LLE WBAT or #) (%) Recommendations To Nursing Amount of Assist Needed 1 Person Assist Discharge Recommendations PT Discharge Recommendations Home with 13/11 Assist Available,Home Health,SNF Rehab,Home vs SNF Transportation Needs at Discharge Private Vehicle,Wheelchair/ Cabulance
[2024-01-12] MEDS: INSULIN LISPRO 100 UNIT/ML 3ML VIAL SUBCUT ×2 (12:11→17:11)
--- NOTE | 2024-01-12 13:45 | PT.IPTN ---
Current Diagnoses Unilateral primary osteoarthritis, left knee (01/11/24) Surgery Performed Operation Date: 01/11/24 13:45 Actual Procedures p Total Knee Arthroplasty(Left) - Adama Rebollar MD Physical Therapy Treatment Note M2 PT-IP Current Condition Start: 01/12/24 12:38 Freq: NEEDED Status: Active Protocol: Document 01/12/24 11:15 AB (Rec: 01/12/24 13:05 AB [id number]) Physical Therapy Current Condition Current Condition Evaluation Date 01/12/24 Treatment Diagnosis s/p L TKA; difficulty in walking Onset Date 01/11/24 M3 PT-IP Subjective Start: 01/12/24 12:38 Freq: NEEDED Status: Active Protocol: Document 01/12/24 13:45 AB (Rec: 01/12/24 14:59 AB [id number]) Subjective Physical Therapy Visit Type Type Treatment Note Visit Start Time 13:45 Visit Stop Time 14:40 Number of HIGH DENSITY TALC COATER OPERATOR Visits 0 Physical Therapy Visit Comments Patient Comments agreeable to do PT Therapy Pain Assessment Pain When Pain Assessed At Rest Pain Present Pain Present Pain Reported Location L knee Intensity 8 Scale Used 12 with movement Pain Behaviors Guarding,Holding Area, Restlessness Pain Management Techniques Apply Cold,Distraction, Modification of Treatment, Timing of Activity with Medications M4 PT-IP Mobility and Gait Start: 01/12/24 12:38 Freq: NEEDED Status: Active Protocol: Document 01/12/24 13:45 AB (Rec: 01/12/24 14:59 AB [id number]) PT-Bed Mobility Assessment Supine to Sit Supine to Sit Standby Assistance Sit to Supine Sit to Supine Minimal Assistance PT-Transfer Assessment Sit to and From Stand Sit to and from Stand Contact Guard Assistance, Minimal Assistance,1 Person Assistance,Use of Upper Extremities Equipment Transfer Assistive Device Gait Belt,Front Wheeled Walker Orthotic/Prosthetic Devices or Brace: No Transfers Transfer Destination Bed Transfer Technique ambulated Transfer Ability Level of Assist Minimal Assistance,1 Person Assistance,Use of Upper Extremities Comments Mobility Comments pt sitting on the chair. SO and daughter in room. pt c/o increase knee pain. educated pt again on moving knee every now and then to decrease tightness. completed seated heel slides prior to getting up. pt completed sit to stand from the chair min A and cues and ambulated in room ~ 10 ft min A and cues. pt sat back on chair. caregiver training conducted. educated SO and daughter on how to use safety belt and how to assist pt. SO was able to put safety belt on pt. assisted pt with sit to stand and ambulated pt towards EOB ~ 15 ft min A using FWW. pt completed sit to supine min A for elevating LE to bed. cued for techniques. SO was able to assist pt. pt completed sit to supine SBA and cues. pt sat on EOB. continued caregiver training with daughter. daughter was able to put safety belt on pt and assisted pt with ambulation in the hallway using FWW min A ~ 40 ft. stair climbing training. educated pt and family on how to do stairs. pt completed up /down steps using R rail ascending + SPC mod A and max cues with PT assisting. pt c/ o increase pain and fatigue and unable to do stairs again with family assisting. agreed to do more training tomorrow. assisted pt back to her room. SO assisted pt from w/c to bed using FWW min A. assisted pt back to bed sit to supine min A with LE. positioned pt on the bed. call light and table placed within reach. Significant other will be here at ~ 9am for caregiver training. Gait Assessment Gait Gait Assistance Required: Minimum Assistance,1 Person Assist Distance (Feet) 40 Able to Maintain Weight Bearing Status Yes During Gait Assistive Devices Assistive Device Gait Belt,Front Wheeled Walker Orthotic/Prosthetic Devices or Brace: No Gait Deviations General Gait Pattern Antalgic,Decreased Stride Length,Decreased Feet Clearance Factors Limiting Gait Function Factors Limiting Gait Function Decreased Activity Tolerance, Decreased Strength,Limited Range of Motion,Pain,Poor Balance,Poor Safety Awareness Stair Climbing Assessment Evaluation Level of Assist On Stairs Moderate Assistance,1 Person Assistance Devices Stair Climbing Assistive Devices Straight Cane,Right Railing Technique/Endurance Stair Climbing Direction Ascend and Descend Stair Climbing Technique Step to Step Number of Steps Climbed 3 Stair Climbing Set # Repetitions (reps) 1 M5 PT-IP Objective Assessments Start: 01/12/24 12:38 Freq: NEEDED Status: Active Protocol: Document 01/12/24 11:15 AB (Rec: 01/12/24 13:05 AB [id number]) Orientation Orientation/Cognition Level of Alertness Alert Orientation Name,Place,Situation Language Function Ability Hard of Hearing Safety Awareness Decreased Safety Awareness Memory Description No Deficits Noted Gross Range of Motion Lower Extremity ROM Assessment Left Impaired Impairments L knee flexion: ~ 50 deg L knee flexion: ~ 15 deg Strength Lower Extremity Strength Assessment Left Impaired Hip 3+/5 Knee 3+/5 Coordination Assessment Gross Coordination Gross Coordination WNL Sensation Assessment Sensation Gross Sensation WNL Muscle Tone Muscle Tone WNL Yes M6 PT-IP Treatment Start: 01/12/24 12:38 Freq: NEEDED Status: Active Protocol: Document 01/12/24 13:45 AB (Rec: 01/12/24 14:59 AB [id number]) Physical Therapy Treatment Exercises Exercises Heel Slides Education Education Provided Safety M7 PT-IP Assessment and Plan Start: 01/12/24 12:38 Freq: NEEDED Status: Active Protocol: Document 01/12/24 13:45 AB (Rec: 01/12/24 14:59 AB [id number]) PT Summary Assessment and Plan Potential Rehabilitation Potential Fair Summary Impairments Pain,ROM,Strength,Balance, Coordination,Sensation,Tone, Cognition,Bed Mobility, Transfers,Gait,Activity Tolerance Progress Towards Goals Slow Progress due to Pain,Slow Progress due to Activity Tolerance Assessment Summary pt progressing slowly with mobility. pt continues to have increase pain affecting progress and mobility. Pt requiring min A with mobility using FWW for ambulation, mod A for stair climbing using R rail + SPC. caregiver training initiated but further training needed specially for stair climbing. set up caregiver training at ~ 9am tomorrow. talked with case coordinator regarding HHPT at this time due to pt's decrease activity tolerance and may not be ready for outpt PT at this time. Goals Bed Mobility Goal Standby Assistance Transfer Goal Standby Assistance,Front Wheeled Walker Gait Goal Standby Assistance,Front Wheel Walker Gait Distance 150 Other Goals up/down 3 steps R rail ascending SBA Days to Meet Goals 5 Frequency of Treatment Frequency Of Treatment Twice a Day Treatment Plan Physical Therapy Treatment Plan Bed Mobility Training,Transfer Training,Gait Training, Therapeutic Exercise,Balance Retraining,Post Op Education, Discharge Planning,Hot or Cold Pack,Neuromuscular Re-ed, Coordination Retraining,Manual Therapy Weight Bearing Status Weight Bearing Status Weight Bear as Tolerated Allowed Weight Bearing Amount (enter % LLE WBAT or #) (%) Recommendations To Nursing Amount of Assist Needed 1 Person Assist Discharge Recommendations PT Discharge Recommendations Home with 13/11 Assist Available,Home Health Transportation Needs at Discharge Private Vehicle,Wheelchair/ Cabulance
--- NOTE | 2024-01-12 14:36 | CM.DANOTE ---
Patient is a 78 yo female who was admitted [facility] and changed to INPT Status on 01/11/24 for LTKA. Pt has AARP MCR under [employer] and [facility] for insurance and her PCP is Dr. Jovan Nichols. EMR was reviewed. Per Ortho, pt tolerated procedure well but requiring 2-3PA with dizziness and to work with PT for possible discharge home today vs tomorrow pending progress. Per PT, recommending home with family assist and outpt PT but pt too painful and hypotensive today for safe discharge and will attempt CG training later and stairs. SW met bedside with pt and Sig Other and Dtr Jyoti and explained role and they confirm they live on [facility] and pt is mostly independent with ADLs and has FWW and some DME at home and family confirms they will provide assist at d/c but concerned about pt's discharge home to [facility]. Pt denies hx of HH or SNF but states she has outpt PT set up at [facility] and has 8 sessions booked starting next week. Pt and family preference is home at discharge but feel pt is not stable yet for discharge today and are planning to transport her home tomorrow pending progress. Plan: SW to follow closely for plan of cancelling discharge today and aim for discharge home via family POV and assist and outpt PT already set up. RACHEL Galindo Discharge Planning/Care Management Advanced directive, confirm from FAMILY Start: 01/11/24 17:29 Freq: Q24H Status: Active Protocol: Document 01/11/24 17:29 EJ (Rec: 01/11/24 18:20 EJ [id number]) Advance Directive, confirm on record Time 18:00 Person contacted Nani Morton Copy received No CM Discharge Assessment Start: 01/12/24 14:35 Freq: Status: Active Protocol: Document 01/12/24 14:35 BF (Rec: 01/12/24 14:36 BF [id number]) Discharge Planning Assessment Assigned Power Generation Plant Operator RACHEL Kaufman DPOA/Assigned Designee Name Nydia Montes Contact Information [phone] Advance Directives? Yes: POLST Advance Directives on File No History Provided By Patient,Family Member, Significant Other,Medical Record Has Patient been admitted in last 30 No days? Prior Living Arrangements House Household Members significant other Type of transporation used prior to Drives own vehicle admit Independent with ADL's Yes Is patient alert and oriented? Yes Needs Assistance With Home Chores / Shopping Caregiver for Another No Community Services used prior to Physical Therapy admission: DME Already Rented / Owned FWW / Walker Patient/Family Preference OP PT Therapy Barriers to Discharge No Discharge Plan Home Community Services Physical Therapy Transportation Arrangement Dtr and Sig Other bedside and they will transport home Referrals Initiated None needed Whiteboard Updated in Patient Room with Yes name and ext. # of Power Generation Plant Operator Review Status In Process Please Provide Date Initial DC 01/12/24 Assessment Was Performed Next Review Type Continued Stay Review Pre-Anesthesia Assessment Start: 01/09/24 12:45 Freq: Status: Active Protocol: Document 01/09/24 12:45 LB (Rec: 01/09/24 13:32 LB [id number]) Pre-Anesthesia Assessment Preferred Name Patient Information Reviewed Via Phone Assessment Assessment Completed With Patient Diagnostic Results BMP/CMP,CBC,EKG Comment 12/04/2023 at . Primary Care Provider Jovan Nichols Medical Clearance Received Yes Seen Specialist in Last 12 Months Yes Specialist Seen Supervisor Publications Production,Mogul Operator, Orthopedist Primary Language Frisian Preferred Language Frisian Technical Sales Representative Required No Height 152.4 cm Weight 73.482 kg Body Mass Index (BMI) 31.6 Hearing Ability Use of Hearing Aid Visual Assist Glasses Dentition Type Teeth, Natural Present,Teeth, Missing Other Aids No Hx Anesthesia Reactions No Hx Family Anesthesia Reaction No Hx Malignant Hyperthermia No Hx Blood Transfusions No Hx Blood Transfusion Reaction No Anesthesia Review Requested No Professional Development Instructor No alcohol intake current alcohol intake frequency holidays/special occasions only Smoking Status Former smoker how long ago did patient quit smoking 1970 Substance Use Type does not use Pain Present Pain Reported Comment left knee, right elbow. Musculoskeletal Symptoms Arthralgias,Difficulty Walking ,Joint Pain,Numbness,Radiating Pain into Limb,Tingling History of Falling (Recent or History of No ) Patient is completely paralyzed or No completely immobile Prosthesis or Orthotic Device Cane,Front Wheel Walker Mental Status Oriented to own ability Is patient on oxygen? No Hx Sleep Apnea No CPAP/BIPAP use not prescribed Currently Taking a Beta Sanya No Can You Climb a Flight of Stairs Without Yes SOB Hx Chest Pain No Hx SOB No Hx Syncope or Dizziness No Anti-Coagulant Therapy No Has a Oval Or Circular Glass Cutter No Cardiac Testing Yes: EKG Hx Pacemaker/ICD No Cardiac Clearance Received Not Applicable Gastrointestinal Symptoms Reflux Bladder Pattern Nocturia Urinary Catheter Present No Hx Urinary Self Catheterization No Diabetes Yes HgbA1C 5.8 Date 12/04/23 Patient No Lactating No Hx Drug Resistant Organism No Presence of External or Internal Medical No Devices Have you had any close contact with No someone diagnosed with COVID-19? Are you experiencing any of these No symptoms symptoms? Received a COVID vaccine? Yes Lives With none Current Living Arrangements House Number of Floors (Floors) One Floor Number of Stairs To Enter/Railing? 3 steps to enter with railing. Support System Child/Children Does the Patient Have Assistance After Yes Surgery Patient Discharge Plan Description Return Home Comment Advised overnight LOS per surgeon. Feels Safe in Current Environment Yes Do you have a plan to hurt yourself or No Plan others? Do You Have Any Spiritual Beliefs That No May Affect Your HC Choices? Do You Have Any Cultural Practices That No May Affect Your HC Choices? Who Can We Speak to About Patient's Care Family/friends Identifying Code for Release of Patient declines to issue. Information Health Care Proxy/Next of Kin Jyoti ramos Health Care Proxy Emergency Contact Name Jyoti ramos Emergency Contact Advance Directives? Yes: POLST Advance Directives on File No Requested Patient Bring Advanced Yes Directives DOS Power of Friction Paint Machine Tender Yes Power of Friction Paint Machine Tender Name Jyoti ramos Power of Friction Paint Machine Tender PAC Instructions Assistance for 24 hours post- op,Diabetes instructions, Durable medical equipment, Medications to take/avoid,No ETOH/petroleum product on skin DOS,NPO,Post-op transportation,Pre-surgical wash,Sensory aids,Sturdy shoes /comfortable clothes,Do not bring valuables and remove jewelry
[2024-01-12] MEDS: SEMAGLUTIDE 1 EACH SUBCUT (15:14)
[2024-01-12] MEDS: Empagliflozin [Jardiance] 25 mg tablet 25 EACH PO (15:21)
[2024-01-12 20:00] VITALS: BP 142/68; PULSE 72; RESP 14; TEMP 37.1; O2SAT 98
[2024-01-12] MEDS: GABAPENTIN 300 MG CAPSULE PO (20:23)
[2024-01-12] MEDS: METFORMIN HCL 500 MG TABLET PO (20:41)
[2024-01-13] MEDS: ACETAMINOPHEN 325 MG TABLET 650 MG PO ×2 (04:18→11:00)
[2024-01-13] MEDS: PANTOPRAZOLE DR 20 MG TABLET PO (05:25)
[2024-01-13] MEDS: OXYCODONE IR 5 MG TABLET PO ×2 (05:25→13:46)
[2024-01-13] MEDS: TRAMADOL 50 MG TABLET PO (07:58)
[2024-01-13 08:00] VITALS: BP 136/80; PULSE 77; RESP 16; TEMP 36.9; O2SAT 96
[2024-01-13] MEDS: DOCUSATE 100 MG CAPSULE PO (08:00)
[2024-01-13] MEDS: ASPIRIN EC 81 MG TABLET PO (08:00)
[2024-01-13] MEDS: ATORVASTATIN 20 MG TABLET PO (08:00)
[2024-01-13] MEDS: Empagliflozin [Jardiance] 25 mg tablet 25 EACH PO (08:01)
[2024-01-13] MEDS: SODIUM CHLORIDE 0.9% FLUSH 10 ML IV (08:04)
--- NOTE | 2024-01-13 09:27 | PT.IPTN ---
Current Diagnoses Unilateral primary osteoarthritis, left knee (01/11/24) Surgery Performed Operation Date: 01/11/24 13:45 Actual Procedures p Total Knee Arthroplasty(Left) - Adama Rebollar MD Physical Therapy Treatment Note M2 PT-IP Current Condition Start: 01/12/24 12:38 Freq: NEEDED Status: Active Protocol: Document 01/12/24 11:15 AB (Rec: 01/12/24 13:05 AB [id number]) Physical Therapy Current Condition Current Condition Evaluation Date 01/12/24 Treatment Diagnosis s/p L TKA; difficulty in walking Onset Date 01/11/24 M3 PT-IP Subjective Start: 01/12/24 12:38 Freq: NEEDED Status: Active Protocol: Document 01/13/24 08:40 MB (Rec: 01/13/24 09:26 MB [id number]) Subjective Physical Therapy Visit Type Type Treatment Note Visit Start Time 08:40 Visit Stop Time 09:18 Number of CARPET SEWER Visits 0 Physical Therapy Visit Comments Patient Comments Pt, significant other and daughter all in room. Pt with c/o high left knee pain and all people stating they understand family training from last date and do not need to practice steps again. Daughter asks about SNF and pt asks about HH and SO states pt is set-up for OPPT 01/22. Therapy Pain Assessment Pain When Pain Assessed At Rest Pain Present Pain Present Pain Reported Location L knee Intensity 6 M4 PT-IP Mobility and Gait Start: 01/12/24 12:38 Freq: NEEDED Status: Active Protocol: Document 01/13/24 08:40 MB (Rec: 01/13/24 09:26 MB [id number]) PT-Transfer Assessment Sit to and From Stand Sit to and from Stand Contact Guard Assistance, Minimal Assistance,1 Person Assistance,Use of Upper Extremities Equipment Transfer Assistive Device Gait Belt,Front Wheeled Walker Orthotic/Prosthetic Devices or Brace: No Transfer Ability Level of Assist Contact Guard Assistance, Minimal Assistance,1 Person Assistance,Use of Upper Extremities Comments Mobility Comments BP and HR LUE: recumbent in chair: 110/66, 75; standing 103/56, 76; standing 1' 110/54 , 86 and pt c/o light- headedness and so short gait only. Pt returned to chair with increasing symptoms and BP in standing after short gait in LUE: 72/50, 81 and pt returned to recumbent in chair with legs up and nsg enters. Gait Assessment Gait Gait Assistance Required: Contact Guard Assist,Minimum Assistance Distance (Feet) 35 Able to Maintain Weight Bearing Status Yes During Gait Assistive Devices Assistive Device Gait Belt,Front Wheeled Walker Orthotic/Prosthetic Devices or Brace: No Gait Deviations General Gait Pattern Antalgic,Decreased Stride Length,Decreased Feet Clearance,Step-to Gait Factors Limiting Gait Function Factors Limiting Gait Function Decreased Activity Tolerance, Decreased Strength,Limited Range of Motion,Pain,Poor Balance,Poor Safety Awareness Comments Gait Comments Pt with less verbalizations with increased gait distance and requiring more assistance to get back to chair to check BP. Increased nausea with gait . PT-Balance Assessment Sitting Balance and Reactions Static Sitting Balance Ability Good Dynamic Sitting Balance Ability Fair Standing Balance and Reactions Static Standing Balance Ability Fair Dynamic Standing Balance Ability Fair Device Used RW M5 PT-IP Objective Assessments Start: 01/12/24 12:38 Freq: NEEDED Status: Active Protocol: Document 01/12/24 11:15 AB (Rec: 01/12/24 13:05 AB [id number]) Orientation Orientation/Cognition Level of Alertness Alert Orientation Name,Place,Situation Language Function Ability Hard of Hearing Safety Awareness Decreased Safety Awareness Memory Description No Deficits Noted Gross Range of Motion Lower Extremity ROM Assessment Left Impaired Impairments L knee flexion: ~ 50 deg L knee flexion: ~ 15 deg Strength Lower Extremity Strength Assessment Left Impaired Hip 3+/5 Knee 3+/5 Coordination Assessment Gross Coordination Gross Coordination WNL Sensation Assessment Sensation Gross Sensation WNL Muscle Tone Muscle Tone WNL Yes M6 PT-IP Treatment Start: 01/12/24 12:38 Freq: NEEDED Status: Active Protocol: Document 01/13/24 08:40 MB (Rec: 01/13/24 09:26 MB [id number]) Physical Therapy Treatment Exercises Exercises Ankle Pumps,Gluteal Sets,Quad Sets,Heel Slides Education Education Provided Safety Other Treatments Other Treatment Performed Minimal LAQ LLE M7 PT-IP Assessment and Plan Start: 01/12/24 12:38 Freq: NEEDED Status: Active Protocol: Document 01/13/24 08:40 MB (Rec: 01/13/24 09:26 MB [id number]) PT Summary Assessment and Plan Potential Rehabilitation Potential Fair Status of Condition at Evaluation Unstable Summary Impairments Pain,ROM,Strength,Balance, Coordination,Sensation,Tone, Cognition,Bed Mobility, Transfers,Gait,Activity Tolerance Progress Towards Goals Slow Progress due to Pain,Slow Progress due to Activity Tolerance Assessment Summary Pt and family reporting they understand training from last date. Pt is light-headed upon standing and her BP drops significantly after 35'x2 gait with RW, requiring stopping activity and pt to recumbent in chair with legs up. PT calls in nsg and speaks with SW. Goals Bed Mobility Goal Standby Assistance Transfer Goal Standby Assistance,Front Wheeled Walker Gait Goal Standby Assistance,Front Wheel Walker Gait Distance 150 Other Goals up/down 3 steps R rail ascending SBA Days to Meet Goals 5 Frequency of Treatment Other frequency 1-2x/day Treatment Plan Physical Therapy Treatment Plan Bed Mobility Training,Transfer Training,Gait Training, Therapeutic Exercise,Balance Retraining,Post Op Education, Discharge Planning,Hot or Cold Pack,Neuromuscular Re-ed, Coordination Retraining,Manual Therapy Weight Bearing Status Weight Bearing Status Weight Bear as Tolerated Allowed Weight Bearing Amount (enter % LLE WBAT or #) (%) Recommendations To Nursing Amount of Assist Needed 1 Person Assist Discharge Recommendations PT Discharge Recommendations Home with 13/11 Assist Available,Home Health Other Discharge Recommendations Possible SNF pending BP response Transportation Needs at Discharge Private Vehicle,Wheelchair/ Cabulance
--- NOTE | 2024-01-13 10:41 | PM.PNPO.1 ---
Subjective Subjective Interval history: Patient is status post left total knee arthroplasty. Patient states still having some pain but it is better than it was yesterday. Got up with physical therapy and got a little dizzy and lightheaded. Blood pressure did show signs of some hypotension. Patient is feeling fine now. Does seem interested in being able to go home today. Exam Vital Signs (past 8 hours): - 01/13/24 07:00 01/13/24 08:00 Temperature 98.5 F Pulse Rate 77 Respiratory Rate 16 Blood Pressure 136/80 Pulse Oximetry 96 Oxygen Delivery Method Room Air Fraction of Inspired Oxygen 30 SaO2/FiO2 Ratio 320 Oxygen Delivery Method Room Air Oxygen Flow Rate 0 Narrative Exam Narrative: Positive dorsiflexion and plantar flexion of her toes and ankle. And tender to palpation to the posterior aspect of the calf. Compression dressing around the knee that is still intact. Objective Labs 01/12/24 04:49 01/11/24 22:35 PFSH Medical History Morbid obesity Hyperparathyroidism Grade II diastolic dysfunction Chronic low back pain with sciatica Anemia in chronic kidney disease Angioedema Duodenal ulcer Abnormal Pap smear of cervix Diabetes mellitus Hyperlipidemia GERD (gastroesophageal reflux disease) Crohn's disease Surgical History History of left oophorectomy Status post laparoscopic cholecystectomy Status post cone biopsy of cervix Family History Father Diabetes mellitus Social History household members: significant other Smoking Status: Former smoker alcohol intake: current eating out: rarely or never Type(s) of exercise: walking Assessment & Plan Post-op Postoperative Procedures: Procedures Operation Date: 01/11/24 13:45 Actual Procedure Side Surgeon p Total Knee Arthroplasty Left Adama Rebollar MD Postoperative plan: discharge Postoperative plan narrative: Patient postoperative day 2. Of a left total knee arthroplasty. Patient should be safe to be discharged home today. I would have physical therapy get her up 1 more time just to make sure that she does not have any significant hypotension. Both patient and her family members feel like she is okay to go home today. Quality VTE Deep Vein Thrombosis/Pulmonary Embolism Present on Admission: No
[2024-01-13] MEDS: INSULIN LISPRO 100 UNIT/ML 3ML VIAL SUBCUT (11:42)
--- NOTE | 2024-01-13 12:12 | CM.DPC ---
DCP Cont. Reviewed EMR and team rounds for status updates. Pt has been cleared for home d/c, however she became very orthostatic with PT. Ortho/Dr. Chairez states pt will d/c home anyway, RN was working with her and was attempting to get a hold of Dr. Chairez in order to get an order for a saline bolus to help, but after 2-messages he has not yet returned the call. Pt may d/c later this afternoon is she is stable at that time, otherwise, it will be Sunday.
[2024-01-13] MEDS: SODIUM CHLORIDE 0.9% 500 ML 1000 ML IV (13:47)
== END 2024-01-13 12:50 | disposition home or self-care (01) | DRG 470 ==
LOC: OR 01-14 08:58 → AC 01-14 08:58
PROVIDERS: Admitting Provider Orthopaedic Surgery Adult Reconstructive Orthopaedic Surgery; Family Provider Family Medicine; PCP Family Medicine; Referring Provider Family Medicine; Visit Provider Orthopaedic Surgery Adult Reconstructive Orthopaedic Surgery
PROC: 0SRD0JZ Replacement of Left Knee Joint with Synthetic Substitute, Open Approach (ICD-10-PCS; CPT 27447; principal; 2024-01-11 13:45)
DX: M17.12 Unilateral primary osteoarthritis, left knee (principal); E11.22 Type 2 diabetes mellitus with diabetic chronic kidney disease; E78.5 Hyperlipidemia, unspecified; I95.9 Hypotension, unspecified; K21.9 Gastro-esophageal reflux disease without esophagitis; N18.9 Chronic kidney disease, unspecified; Z79.4 Long term (current) use of insulin; Z79.85 Long-term (current) use of injectable non-insulin antidiabetic drugs; Z79.84 Long term (current) use of oral hypoglycemic drugs
CPT/HCPCS: 36415; 73560; 80048; 82962; 85014; 85018; 97116; 97162; 97530; 97535; C1776; J0690; J1100; J1170; J1815; J2405; J2704

== ENCOUNTER → 2024-01-25 11:48 | Outpatient (CLI) | payer MEDICARE, MEDICAID, SELFPAY ==
[2019-01-05 10:35] VITALS: PULSE 57; RESP 16; O2SAT 93
[2024-01-11 17:22] VITALS: BMI 28.3
[2024-01-25 12:51] LABS: Hemoglobin A1C% w Est Avg Glu 5.9 % (4.0-6.0)
[2024-01-25 13:12] LABS: BUN Creatinine Ratio 15.3 (6-22); Blood Urea Nitrogen 22 mg/dL (7-17); Calcium 9.8 mg/dL (8.4-10.2); Carbon Dioxide 28 mmol/L (22-32); Chloride 103 mmol/L (98-107); Cholesterol 153 mg/dL (140-199); Estimated Glomerular Filt Rate 37 mL/min (>60); Glucose 124 mg/dL (80-110); HDL Cholesterol 60 mg/dL (40-60); HEMOLYSIS < 15 (0-50); LDL Cholesterol Calculated 71 mg/dL (<100); Potassium 4.7 mmol/L (3.4-5.1); Sodium 139 mmol/L (137-145); Triglycerides 110 mg/dL (35-150)
[2024-01-25 13:51] LABS: Creatinine Urine Random 45.51 mg/dL; Protein (Total) Urine Random 12 mg/dL (0-12); Protein Creatinine Ratio Urine 0.26 GRAM/24H
[2024-01-25 14:08] LABS: Vitamin D 25 Hydroxy (D3) 55.8 ng/mL (30.0-100.0)
[2024-01-26 09:12] LABS: Parathyroid Hormone Int 56 pg/mL (15-65)
== END ==
PROVIDERS: Family Provider Family Medicine; PCP Family Medicine; Referring Provider Internal Medicine Endocrinology, Diabetes & Metabolism; Visit Provider Internal Medicine Endocrinology, Diabetes & Metabolism
DX: E11.65 Type 2 diabetes mellitus with hyperglycemia (principal); E21.3 Hyperparathyroidism, unspecified; N05.9 Unspecified nephritic syndrome with unspecified morphologic changes; R80.9 Proteinuria, unspecified; Z79.4 Long term (current) use of insulin
CPT/HCPCS: 36415; 80048; 80061; 82043; 82306; 82570; 83036; 83970; 84156

== ENCOUNTER → 2024-02-27 16:04 | Outpatient (CLI) | payer MEDICARE, MEDICAID, SELFPAY ==
[2019-01-05 10:35] VITALS: PULSE 57; RESP 16; O2SAT 93
[2024-01-11 17:22] VITALS: BMI 28.3
[2024-02-27 16:29] LABS: Add Manual Diff / Slide Review NO; Basophils Absolute Auto 100 /uL (0-100); Basophils Percent Auto 0.8 % (0-2); Eosinophils Absolute Auto 100 /uL (0-450); Eosinophils Percent Auto 0.8 % (2-4); Hematocrit 35.9 % (36-46); Hemoglobin 11.6 g/dL (12.0-16.0); Lymphocytes Absolute Auto 1800 /uL (1100-4500); Lymphocytes Percent Auto 26.9 % (25-40); Mean Corpuscular HGB Conc 32.3 % (30-36); Mean Corpuscular Hemoglobin 26.5 PG (26-34); Monocytes Absolute Auto 400 /uL (0-900); Monocytes Percent Auto 5.7 % (3-14); Neutrophils Absolute Auto 4500 /uL (1500-7000); Neutrophils Percent Auto 65.8 % (50-75); Platelet Count 288 X10^3/uL (150-400); Red Blood Cell Count 4.38 X10^6/uL (4.0-5.2); Red Cell Distribution Width 14.8 % (11.6-14.8); White Blood Cell Count 6.8 X10^3/uL (4.5-11.0)
[2024-02-27 16:46] LABS: Monotest Negative (Negative)
[2024-02-27 16:55] LABS: Alanine Aminotransferase 11 IU/L (<35); Albumin 4.3 g/dL (3.5-5.0); Albumin Globulin Ratio 1.3 (1.0-2.8); Alkaline Phosphatase 71 U/L (38-126); Aspartate Aminotransferase 20 IU/L (14-36); BUN Creatinine Ratio 12.1 (6-22); Bilirubin Total 0.5 mg/dL (0.2-1.3); Blood Urea Nitrogen 19 mg/dL (7-17); Calcium 9.3 mg/dL (8.4-10.2); Carbon Dioxide 26 mmol/L (22-32); Chloride 101 mmol/L (98-107); Estimated Glomerular Filt Rate 34 mL/min (>60); Globulin 3.2 g/dL (1.7-4.1); Glucose 110 mg/dL (80-110); HEMOLYSIS < 15 (0-50); Lactate Dehydrogenase 138 U/L (120-246); Potassium 4.3 mmol/L (3.4-5.1); Sodium 136 mmol/L (137-145); Total Protein 7.5 g/dL (6.3-8.2); Uric Acid 4.8 mg/dL (2.5-6.2)
[2024-03-03 13:36] LABS: Albumin 3.8 g/dL (2.9-4.4); Alpha 1 Globulin 0.3 g/dL (0.0-0.4); Alpha 2 Globulin 0.9 g/dL (0.4-1.0); Gamma Globulin 1.2 g/dL (0.4-1.8); Protein, Total 7.2 g/dL (6.0-8.5)
== END ==
PROVIDERS: Family Provider Family Medicine; PCP Family Medicine; Referring Provider Physician Assistant; Visit Provider Physician Assistant
DX: R61 Generalized hyperhidrosis (principal); R59.0 Localized enlarged lymph nodes; G47.00 Insomnia, unspecified
CPT/HCPCS: 36415; 80053; 83615; 84155; 84165; 84550; 85025; 86318

== ENCOUNTER → 2024-04-21 10:56 | Outpatient (CLI) | payer MEDICARE, MEDICAID, SELFPAY ==
[2024-03-13 10:22] VITALS: PULSE 57; RESP 16; O2SAT 93; BMI 28.3
--- NOTE | 2024-04-21 11:00 | DI.US.S_ITS ---
PROCEDURE: US ABDOMEN LIMITED INDICATIONS: check for inguinal node vs mass / bilateral TECHNIQUE: Real-time focused scanning was performed of the inguinal region, with image documentation. COMPARISON: None. FINDINGS: Along the bilateral inguinal regions, there is no evidence of a hernia or abnormal lymph node. IMPRESSION: No sonographic evidence of bilateral inguinal hernias or lymphadenopathy. Dictated by: Kel Ramirez M.D. on 04/21/2024 at 16:06 Approved by: Kel Ramirez M.D. on 04/21/2024 at 16:07
== END ==
LOC: US 10:59
PROVIDERS: Family Provider Family Medicine; PCP Family Medicine; Referring Provider Physician Assistant; Visit Provider Physician Assistant
DX: R59.0 Localized enlarged lymph nodes (principal)
CPT/HCPCS: 76705

== ENCOUNTER 2024-06-19 14:30 | Outpatient (RCR) | payer MEDICARE, MEDICAID, SELFPAY ==
[2019-01-05 10:35] VITALS: PULSE 57; RESP 16; O2SAT 93
[2023-10-11 15:51] VITALS: BMI 28.8
--- NOTE | 2024-01-10 15:55 | PT.OIE ---
Current Diagnoses Unilateral primary osteoarthritis, left knee (01/10/24) Stiffness of left knee, not elsewhere classified (01/10/24) Other lack of coordination (01/10/24) Weakness (01/10/24) Past Medical History (Last Reviewed 10/11/23 @ 17:44 by Ced Alcaraz DO) Abnormal Pap smear of cervix Anemia in chronic kidney disease Angioedema Chronic low back pain with sciatica Crohn's disease Diabetes mellitus Duodenal ulcer GERD (gastroesophageal reflux disease) Grade II diastolic dysfunction Hyperlipidemia Hyperparathyroidism Morbid obesity Past Surgical History (Last Reviewed 10/11/23 @ 17:44 by Ced Alcaraz DO) History of left oophorectomy Status post cone biopsy of cervix Status post laparoscopic cholecystectomy Visit Care Team Role Provider Type Jovan Nichols MD Family Provider Physician Primary Care Provider Specialty: Family Practice Address: [address] [place] [address], [id number] Email: [email or web address] Adama Rebollar MD Attending Provider Physician Referring Provider Specialty: Orthopedics Orthopedic Surgery Address: [address] [place] [address], [id number] Email: [email or web address] Physical Therapy Initial Evaluation PT-OP-A Visit Information Start: 01/10/24 10:30 Freq: Status: Active Protocol: Document 01/10/24 10:31 NM (Rec: 01/10/24 11:16 NM [id number]) Out-Patient Physical Therapy Visit Information Visit Information Visit Type Initial Evaluation Visit Start Time 10:33 Visit Stop Time 11:15 Visit Number 1 Evaluation Information Evaluation Date 01/10/24 Precautions Precautions DOS L TKA 01/11/24 PMH diabetes II PT-OP-B Current Condition Start: 01/10/24 10:30 Freq: Status: Active Protocol: Document 01/10/24 10:31 NM (Rec: 01/10/24 11:16 NM [id number]) Current Condition History of Current Condition Current Complaints pain, mobility History of Current Condition 01/10/24: Pt will be having a L TKA tomorrow 01/10/[address] Rebollar. Pt has had fluid taken off several times, cortisone, hyaluronic acid to help with injections. Pt reports no difficulty with her R knee. She has 3 steps into home, rail on R side to enter; single story home. Pt presents with FWW. She has not been using an AD prior to surgery. Pt lives alone but her daughter lives in the same town; hoping daughter will help. Pt reports that she has aches in the back of her L leg (calf). Pt reports that the walker can fit in her home. She has a shower bar in her shower, none for toilet (low toilet). She is planning to be in hospital overnight. PT-OP-C Subjective Start: 01/10/24 10:30 Freq: Status: Active Protocol: Document 01/10/24 10:31 NM (Rec: 01/10/24 11:16 NM [id number]) OP-PT Subjective Patient Comments Patient Comments Consents to participate in evaluation Patient Questionnaires Lower Extremity Functional Scale LEFS Score 01/09: 36/80 OP-PT Pain Assessment Location L knee Pain Location Details patella, entire joint Intensity 7 Scale Used Numeric (0 - 10) Description Aching,Sharp Frequency Frequent Pain Aggravating Factors Position,Changing Position, Activity,Exercise,Standing, Walking Pain Alleviating Factors Cold,Elevation,Rest PT-OP-E Functional Tests Start: 01/10/24 10:30 Freq: Status: Active Protocol: Document 01/10/24 10:31 NM (Rec: 01/10/24 11:16 NM [id number]) Functional Tests 6 Minute Walk Test Distance 01/09: 1094 ft Device Used 01/09: no AD Comments 01/09: pain in L knee Five Times Sit to Stand Test Score 01/09: 16.8 sec Comments painful PT-OP-F Manual Assessment Start: 01/10/24 10:30 Freq: Status: Active Protocol: Document 01/10/24 10:31 NM (Rec: 01/10/24 12:58 NM [id number]) Manual Assessments Soft Tissue Assessment Soft Tissue Mobility Assessment Increased hamstring and hip ER tightness Joint Mobility Assessment Joint Mobility Assessment Decreased L knee mobility PROM and AROM, empty end feels; joint crepitus PT-OP-G Mobility & Gait Start: 01/10/24 10:30 Freq: Status: Active Protocol: Document 01/10/24 10:31 NM (Rec: 01/10/24 12:58 NM [id number]) OP Gait Assessment Gait Gait Assistance Required: Independent Distance (Feet) 1,094 Assistive Devices Assistive Device Gait Belt Gait Deviations General Gait Pattern Antalgic Factors Limiting Gait Function Factors Limiting Gait Function Decreased Strength,Pain Comments Gait Comments Tendency for L hip ER with stance and swing PT-OP-J Posture/Palpation/Skin Start: 01/10/24 10:30 Freq: Status: Active Protocol: Document 01/10/24 10:31 NM (Rec: 01/10/24 12:58 NM [id number]) Posture Evaluation Position Standing Head/C-Spine Posture Forward Head T-Spine Posture Increased Kyphosis Shoulder Posture (L) Rounded,(R) Rounded Pelvis Posture Anteriorly Tilted Weight Distribution Weight Shifted Right Hip Posture (R) Neutral,(L) Externally Rotated Knee Posture (L) Genu Valgus,(R) Genu Valgus Palpation Assessment Location L knee Palpation Details Tenderness along joint lines, patella Increased tightness of hamstrings, quads, hip flexors PT-OP-K Range of Motion Start: 01/10/24 10:30 Freq: Status: Active Protocol: Document 01/10/24 10:31 NM (Rec: 01/10/24 11:16 NM [id number]) Knee Goniometric Range of Motion Knee Right Flexion Active (degrees) 120 Extension Active (degrees) 2 Left Flexion Active (degrees) 118 Extension Active (degrees) 8 PT-OP-M Strength Start: 01/10/24 10:30 Freq: Status: Active Protocol: Document 01/10/24 10:31 NM (Rec: 01/10/24 11:16 NM [id number]) Hip Strength Hip Manual Muscle Testing Right Flexion (L2) 4- Good- Extension (S1) 4- Good- Abduction 4- Good- Adduction 4- Good- Left Flexion (L2) 3+ Fair+ Extension (S1) 3+ Fair+ Abduction 3+ Fair+ Adduction 3+ Fair+ Knee Strength Knee Manual Muscle Testing Right Flexion (S2) 4 Good Extension (L3) 4 Good Left Flexion (S2) 3+ Fair+ Extension (L3) 3+ Fair+ PT-OP-Q Treatments Start: 01/10/24 10:30 Freq: Status: Active Protocol: Document 01/10/24 10:31 NM (Rec: 01/10/24 11:16 NM [id number]) Therapeutic Exercises Supine Exercises heel slide Supine Exercise Name assisted heel slide Side left Equipment Used with gait belt Reps/Minutes 10 w/ brief hold Comments cued to do AROM first then AAROM quad set Side left Equipment Used towel roll under knee Reps/Minutes 15x3 Comments cued submaximal contraction ankle pumps Supine Exercise Name for swelling management Side left Equipment Used leg elevated on pillow Reps/Minutes 15 Therapeutic Activity Therapeutic Activity Transfers Comments 1. STS to FWW from plinth standard ht Pt using 1 hand on FWW and the other to push up from seat to stand. LLE slightly fwd. Cued for anterior WS, positioning 2. Approaching chair Cueing to back up to chair until feels legs behind 3. supine <> sit Plinth positioned similar to pt bed set up. RLE assisting LLE onto bed from sitting, then pt repositioning. Moderate cues required for sequencing. Pt able to slide LLE off bed without assist. Educated to use hands to assist at home when post-op Gait Training Gait Activity FWW Level of Assistance mod I Surface stable Distance/Duration 150 Treatment Focus sequencing, WB, step-to pattern Comments Pt's FWW adjusted to pt. Educated on WB precautions post-op. Cueing to place weight through hands when L stance Self-Care/Home Management Treatment Education Other Education PT recommended that pt have daughter stay with pt or pt stay with daughter initially until pt safe to return to home alone PT-OP-T Assessment and Plan Start: 01/10/24 10:30 Freq: Status: Active Protocol: Document 01/10/24 10:31 NM (Rec: 01/10/24 11:16 SC [id number]) Physical Therapy Assessment Rehab Potential Rehabilitation Potential Good Evaluation Complexity Number of Personal Factors/Comorbidities 3 or More Number of Body Systems Impaired 4 or More Clinical Presentation at Evaluation Stable Impairments Impairments Activity Tolerance,Balance, Functional Activities, Functional Mobility,Gait,Pain, Posture,ROM,Sensation,Soft Tissue Mobility,Strength, Transfers Other Concerns Barriers to Rehabilitation PMH: Crohn's disease, diabetes II, arthritis, kidney disease , hearing Pt has a high copay Goals Three Impairment not performing HEP Short Term Goal (STG) Pt will be issued HEP and report compliance 2-3x/wk in order to maximize progression with PT STG Duration 3 weeks Retirement Goal (LTG) Pt will report compliance with HEP 3x/wk in order to transition to maintenance program and maintain progress made during PT LTG Duration 12 weeks Two Impairment pre-op 6 MWT distance 1094 ft Short Term Goal (STG) Pt will demonstrate safety with gait using AD in order to demonstrate ability to use AD post-operatively for gait and transfers with decreased fall risk STG Duration 3 weeks Discount Clerk Goal (LTG) Pt will be ambulate >1100 ft post op without AD in order to demonstrate improved activity tolerance, strength, and QOL LTG Duration 12 weeks One Impairment pre-op L knee ROM 118-8 Retirement Goal (LTG) Pt will improve L knee AROM to at least 120-2 post- operatively in order to improve knee mobility during gait and stairs LTG Duration 12 weeks Assessment Summary Assessment Pt is a 78 y.o. female presenting before L TKA scheduled for 01/11/24. Symptoms are consistent with dx. Pt has impairments in gait , balance, transfers, pain, ROM, strength, and activity tolerance. Her 6 MWT distance without AD is 1094 ft, which is painful at her knee. She has difficulty with STS transfer due to pain in L knee , but is able to perform without UE assistance. Pt's L knee AROM and strength is limited, in addition to overall weakness of B hips. Pt lives alone but has some DME post-operatively. She does not use an AD prior to surgery. PT educated pt on exam findings and plan of care. Instructed pt in appropriate post-operative exercises to improve L knee mobility and quad activation, in addition to educated pt on transfers and use of FWW during gait. Pt verbalizes and demonstrates understanding. Pt has a co-pay , which will influence pt's ability to attend PT and her future progression. Pt would benefit from skilled PT in order to improve L knee mobility and strength in order to improve activity tolerance , pain management, and QOL. Physical Therapy Plan Frequency and Duration Frequency of Treatment 2x/Week Duration of treatment (weeks) 12 Plan of Care Start Date 01/10/24 Plan of Care End Date 04/03/24 Therapeutic Interventions Therapeutic Interventions Balance Training,Gait Training ,Home Exercise Program,Joint Mobilizations,Manual Therapy, Neuromuscular Re-education, Orthotic/Prosthetic Management ,Patient/Caregiver Education, Self-Care/Home Management, Sensory Integration,Soft Tissue Mobilization,Taping, Therapeutic Activities, Therapeutic Exercises Modalities Cold Pack/Ice Massage,Electric Stimulation,Hot Packs, Ultrasound Next Visit Focus/Plan Next Note Type Re-Evaluation Next Visit Plan Assess sensation and goals Initiate HEP
--- NOTE | 2024-01-10 15:56 | PT.OPPOC ---
Physical, Occupational & Speech Therapy At [facility] Current Diagnoses Unilateral primary osteoarthritis, left knee (01/10/24) Stiffness of left knee, not elsewhere classified (01/10/24) Other lack of coordination (01/10/24) Weakness (01/10/24) Visit Care Team Role Provider Type Jovan Nichols MD Family Provider Physician Primary Care Provider Specialty: Family Practice Address: [address] [place] [address], [address] Email: [email or web address] Adama Rebollar MD Attending Provider Physician Referring Provider Specialty: Orthopedics Orthopedic Surgery Address: [address] [place] [address], [address] Email: [email or web address] Plan Of Care PT-OP-B Current Condition Start: 01/10/24 10:30 Freq: Status: Active Protocol: Document 01/10/24 10:31 NM (Rec: 01/10/24 11:16 NM [id number]) Current Condition History of Current Condition Current Complaints pain, mobility History of Current Condition 01/10/24: Pt will be having a L TKA tomorrow 01/10/[address] Rebollar. Pt has had fluid taken off several times, cortisone, hyaluronic acid to help with injections. Pt reports no difficulty with her R knee. She has 3 steps into home, rail on R side to enter; single story home. Pt presents with FWW. She has not been using an AD prior to surgery. Pt lives alone but her daughter lives in the same town; hoping daughter will help. Pt reports that she has aches in the back of her L leg (calf). Pt reports that the walker can fit in her home. She has a shower bar in her shower, none for toilet (low toilet). She is planning to be in hospital overnight. PT-OP-T Assessment and Plan Start: 01/10/24 10:30 Freq: Status: Active Protocol: Document 01/10/24 10:31 NM (Rec: 01/10/24 11:16 NM [id number]) Physical Therapy Assessment Rehab Potential Rehabilitation Potential Good Evaluation Complexity Number of Personal Factors/Comorbidities 3 or More Number of Body Systems Impaired 4 or More Clinical Presentation at Evaluation Stable Impairments Impairments Activity Tolerance,Balance, Functional Activities, Functional Mobility,Gait,Pain, Posture,ROM,Sensation,Soft Tissue Mobility,Strength, Transfers Other Concerns Barriers to Rehabilitation PMH: Crohn's disease, diabetes II, arthritis, kidney disease , hearing Pt has a high copay Goals Three Impairment not performing HEP Short Term Goal (STG) Pt will be issued HEP and report compliance 2-3x/wk in order to maximize progression with PT STG Duration 3 weeks Front Office Representative Goal (LTG) Pt will report compliance with HEP 3x/wk in order to transition to maintenance program and maintain progress made during PT LTG Duration 12 weeks Two Impairment pre-op 6 MWT distance 1094 ft Short Term Goal (STG) Pt will demonstrate safety with gait using AD in order to demonstrate ability to use AD post-operatively for gait and transfers with decreased fall risk STG Duration 3 weeks Long-Term Goal (LTG) Pt will be ambulate >1100 ft post op without AD in order to demonstrate improved activity tolerance, strength, and QOL LTG Duration 12 weeks One Impairment pre-op L knee ROM 118-8 Long-Term Goal (LTG) Pt will improve L knee AROM to at least 120-2 post- operatively in order to improve knee mobility during gait and stairs LTG Duration 12 weeks Assessment Summary Assessment Pt is a 78 y.o. female presenting before L TKA scheduled for 01/11/24. Symptoms are consistent with dx. Pt has impairments in gait , balance, transfers, pain, ROM, strength, and activity tolerance. Her 6 MWT distance without AD is 1094 ft, which is painful at her knee. She has difficulty with STS transfer due to pain in L knee , but is able to perform without UE assistance. Pt's L knee AROM and strength is limited, in addition to overall weakness of B hips. Pt lives alone but has some DME post-operatively. She does not use an AD prior to surgery. PT educated pt on exam findings and plan of care. Instructed pt in appropriate post-operative exercises to improve L knee mobility and quad activation, in addition to educated pt on transfers and use of FWW during gait. Pt verbalizes and demonstrates understanding. Pt has a co-pay , which will influence pt's ability to attend PT and her future progression. Pt would benefit from skilled PT in order to improve L knee mobility and strength in order to improve activity tolerance , pain management, and QOL. Physical Therapy Plan Frequency and Duration Frequency of Treatment 2x/Week Duration of treatment (weeks) 12 Plan of Care Start Date 01/10/24 Plan of Care End Date 04/03/24 Therapeutic Interventions Therapeutic Interventions Balance Training,Gait Training ,Home Exercise Program,Joint Mobilizations,Manual Therapy, Neuromuscular Re-education, Orthotic/Prosthetic Management ,Patient/Caregiver Education, Self-Care/Home Management, Sensory Integration,Soft Tissue Mobilization,Taping, Therapeutic Activities, Therapeutic Exercises Modalities Cold Pack/Ice Massage,Electric Stimulation,Hot Packs, Ultrasound Next Visit Focus/Plan Next Note Type Re-Evaluation Next Visit Plan Assess sensation and goals Initiate HEP Plan of Care Dates Plan of Care Start Date 01/10/24 Plan of Care End Date 04/03/24 Electronically Signed by: Genny Stein, PT 01/10/24 2178 If you are in agreement with this Plan of Care, please return a signed and dated copy. I have reviewed this Plan of Care and certify that the skilled therapy services above are required to meet the patient?s needs. Physician Signature Date Printed Name and Credentials Clinical Instructor Signature Printed Name and Credentials
--- NOTE | 2024-01-18 16:10 | PT-OP ANOTE ---
PT called and spoke to pt since she canceled Oct appt until end of month. Pt will be receiving home health PT for 4 weeks, already had 1st visit. PT informed pt that next scheduled visit will be re-evaluation, asked pt to call Sunday and schedule out 2x/wk for 8 weeks in meantime to get on schedule since post-op. Pt verbalizes understanding
--- NOTE | 2024-02-14 15:55 | PT.OTRE ---
Current Diagnoses Unilateral primary osteoarthritis, left knee (02/14/24) Stiffness of left knee, not elsewhere classified (02/14/24) Other lack of coordination (02/14/24) Weakness (02/14/24) Past Medical History (Last Reviewed 01/11/24 @ 11:00 by Latrice Martinez, RN) Abnormal Pap smear of cervix Anemia in chronic kidney disease Angioedema Chronic low back pain with sciatica Crohn's disease Diabetes mellitus Duodenal ulcer GERD (gastroesophageal reflux disease) Grade II diastolic dysfunction Hyperlipidemia Hyperparathyroidism Morbid obesity Surgical History (Last Reviewed 01/11/24 @ 11:00 by Latrice Martinez, RN) History of left oophorectomy Status post cone biopsy of cervix Status post laparoscopic cholecystectomy Visit Care Team Role Provider Type Jovan Nichols MD Family Provider Physician Primary Care Provider Specialty: Family Practice Address: [address] [place] [address], [id number] Email: [email or web address] Adama Rebollar MD Attending Provider Physician Referring Provider Specialty: Orthopedics Orthopedic Surgery Address: [address] [place] [address], [phone] Email: [email or web address] Physical Therapy Re-Evaluation PT-OP-A Visit Information Start: 01/10/24 10:30 Freq: Status: Active Protocol: Document 02/14/24 13:42 NM (Rec: 02/14/24 14:32 NM [id number]) Out-Patient Physical Therapy Visit Information Visit Information Visit Type Re-Evaluation Visit Note s/p L TKA 01/11/24 Visit Start Time 13:45 Visit Stop Time 14:30 Visit Number 2 Precautions Precautions DOS L TKA 01/11/24 PMH diabetes II PT-OP-B Current Condition Start: 01/10/24 10:30 Freq: Status: Active Protocol: Document 02/14/24 13:42 NM (Rec: 02/14/24 14:32 NM [id number]) Current Condition History of Current Condition Onset Date DOS 01/11/24 Current Complaints pain, mobility History of Current Condition 02/14/24: Pt now s/p L TKA. PT just had HHPT, reports went well. She has been doing her exercises everyday. Pt reports pain with getting in/out of car, sitting in car, ambulating, stairs. Has been going on walks 1/4 mi a few times, up and moving around house. Pt has been ambulating at home without spc in R hand. States 6/10 L knee pain at rest, 8/10 with movement; states worse at night. Only taking acetominophen for pain, orn takes ocycodone (bed time ). Has been using spc for about 2 weeks. 01/10/24: Pt will be having a L TKA tomorrow 01/10/[address] Rebollar. Pt has had fluid taken off several times, cortisone, hyaluronic acid to help with injections. Pt reports no difficulty with her R knee. She has 3 steps into home, rail on R side to enter; single story home. Pt presents with FWW. She has not been using an AD prior to surgery. Pt lives alone but her daughter lives in the same town; hoping daughter will help. Pt reports that she has aches in the back of her L leg (calf). Pt reports that the walker can fit in her home. She has a shower bar in her shower, none for toilet (low toilet). She is planning to be in hospital overnight. Treatment Goals Patient/Caregiver Goals walking a couple miles/day ( flat), back to yoga (a couple times/wk) PT-OP-C Subjective Start: 01/10/24 10:30 Freq: Status: Active Protocol: Document 02/14/24 13:42 NM (Rec: 02/14/24 14:32 NM [id number]) OP-PT Subjective Patient Comments Patient Comments Pt consents to participate in re-evaluation Patient Questionnaires Lower Extremity Functional Scale LEFS Score 02/14/24: 18; 01/09: OP-PT Pain Assessment Location L knee Pain Location Details medial and lateral Intensity 7 Scale Used Numeric (0 - 10) Description Aching,Dull,Sharp Frequency Frequent Radiating Location down calf most of time Pain Aggravating Factors Position,Changing Position, Activity,Exercise,Standing, Walking Pain Alleviating Factors Cold,Medication,Elevation,Rest PT-OP-D Balance Start: 01/10/24 10:30 Freq: Status: Active Protocol: Document 02/14/24 13:42 NM (Rec: 02/14/24 16:12 NM [id number]) Balance Tests Single Limb Standing Single Limb- Right 4 seconds Single Limb- Left 1 second with pain Tandem Tandem Standing 15 seconds PT-OP-E Functional Tests Start: 01/10/24 10:30 Freq: Status: Active Protocol: Document 02/14/24 13:42 NM (Rec: 02/14/24 14:32 NM [id number]) Functional Tests 6 Minute Walk Test Distance 02/13: 664 ft; 01/09: 1094 ft Device Used 02/13: spc; 01/09: no AD Comments 02/13, 01/09: pain in L knee Five Times Sit to Stand Test Score 02/14/24: 15.37 sec, 01/09: 16. 8 sec Comments painful, LLE more forward PT-OP-F Manual Assessment Start: 01/10/24 10:30 Freq: Status: Active Protocol: Document 02/14/24 13:42 NM (Rec: 02/14/24 15:41 NM [id number]) Manual Assessments Soft Tissue Assessment Soft Tissue Mobility Assessment Tightness of anterior knee over scar. Restrictions of L hamstring and quad, calf Joint Mobility Assessment Joint Mobility Assessment Hypomobility of L knee, pain with knee flexion especially anterior over scar. Tendency for L hip ER as position of comfort PT-OP-G Mobility & Gait Start: 01/10/24 10:30 Freq: Status: Active Protocol: Document 02/14/24 13:42 NM (Rec: 02/14/24 15:41 NM [id number]) OP Mobility Evaluation Transfers Sit to Stand No UE assist from 18 but [address] LLE more forward than RLE OP Gait Assessment Gait Gait Assistance Required: Standby Assistance Distance (Feet) 664 Assistive Devices Assistive Device Gait Belt,Straight Cane Gait Deviations General Gait Pattern Antalgic Factors Limiting Gait Function Factors Limiting Gait Function Decreased Strength,Pain Comments Gait Comments Tendency for L hip ER with stance and swing if not using spc, then more neutral. Has very stiff L stance, minimal knee flexion even with cueing. Pre-opo: 1094 ft without AD PT-OP-H Neuro Start: 01/10/24 10:30 Freq: Status: Active Protocol: Document 02/14/24 13:42 NM (Rec: 02/14/24 16:12 NM [id number]) Sensation Evaluation Comments Summary Comments Will assess formally next session Increased sensitivity around/ on incision and on either side of L knee PT-OP-J Posture/Palpation/Skin Start: 01/10/24 10:30 Freq: Status: Active Protocol: Document 02/14/24 13:42 NM (Rec: 02/14/24 15:41 NM [id number]) Posture Evaluation Position Standing Head/C-Spine Posture Forward Head T-Spine Posture Increased Kyphosis Shoulder Posture (L) Rounded,(R) Rounded Pelvis Posture Anteriorly Tilted Weight Distribution Weight Shifted Right Hip Posture (R) Neutral,(L) Externally Rotated Knee Posture (L) Genu Valgus,(R) Genu Valgus Palpation Assessment Location L knee Palpation Details Tenderness along medial and lateral knee Increased sensitivity along scar, medial and lateral knee Increased tightness of calf, hamstrings, quads, hip flexores Skin Assessment Incisional Assessment Incision Appearance/Comments Incision intact, pink, clean and dry. No signs of infection or DVT, only reported tenderness of proximal calf. Over incision, leftover adhesive from bandage present PT-OP-K Range of Motion Start: 01/10/24 10:30 Freq: Status: Active Protocol: Document 02/14/24 13:42 NM (Rec: 02/14/24 14:32 NM [id number]) Knee Goniometric Range of Motion Knee Measured in Degrees Right Flexion Active (degrees) 120 Extension Active (degrees) 2 Left Flexion Active (degrees) 90 Extension Active (degrees) 11 Comments Pre-operative: 118 deg knee flexion, lacking 8 deg extension; Post op: 90 deg flex, lacking 11 deg ext PT-OP-M Strength Start: 01/10/24 10:30 Freq: Status: Active Protocol: Document 02/14/24 13:42 NM (Rec: 02/14/24 14:32 NM [id number]) Hip Strength Hip Manual Muscle Testing Right Flexion (L2) 4- Good- Extension (S1) 4- Good- Abduction 4- Good- Adduction 4- Good- Left Flexion (L2) 3+ Fair+ Extension (S1) 3+ Fair+ Abduction 3+ Fair+ Adduction 3+ Fair+ Comments No change from 01/09 pre-op visit Knee Strength Knee Manual Muscle Testing Right Flexion (S2) 4 Good Extension (L3) 4 Good Left Flexion (S2) 3 Fair Extension (L3) 3 Fair Comments 01/09 pre-operative: 3+/5 PT-OP-Q Treatments Start: 01/10/24 10:30 Freq: Status: Active Protocol: Document 02/14/24 13:42 NM (Rec: 02/14/24 14:32 NM [id number]) Therapeutic Exercises Supine Exercises heel slide Side left Resistance AROM Reps/Minutes 10 w/ brief hold Comments painful in knee Sitting Exercises knee extension stretch Side left Equipment Used towel roll under foot Reps/Minutes 2 minutes quad set Sitting Exercise Name 1. on towel roll, 2. heel elevated on roll for passive knee ext stretch Side left Equipment Used performed with tapping to facilitate quad Reps/Minutes 1. 15x3, 2.10x3 Comments HEP- improved activation with reps knee extension mobilization Sitting Exercise Name HEP Side left Reps/Minutes 10x3 - edu can progress to foot elevated on short chair Comments heel on floor, self mob above knee; pain free Self-Care/Home Management Treatment Education Other Education Educated to keep L foot position into neutral and limit time spent in hip ER despite position of comfort to allow for full knee extension and decrease strain on hip/ knee; recommended placing a pillow or other small object next to foot in supine or in sitting to limit hip ER tendency. Educated on signs/ symptoms of DVT PT-OP-T Assessment and Plan Start: 01/10/24 10:30 Freq: Status: Active Protocol: Document 02/14/24 13:42 NM (Rec: 02/14/24 14:32 NM [id number]) Physical Therapy Assessment Rehab Potential Rehabilitation Potential Good Evaluation Complexity Number of Personal Factors/Comorbidities 3 or More Number of Body Systems Impaired 4 or More Clinical Presentation at Evaluation Stable Impairments Impairments Activity Tolerance,Balance, Functional Activities, Functional Mobility,Gait,Pain, Posture,ROM,Sensation,Soft Tissue Mobility,Strength, Transfers Other Concerns Age Related Concerns PMH: Crohn's disease, diabetes II, arthritis, kidney disease , hearing Barriers to Rehabilitation Pt has a high copay which may limit pt's progression with PT Goals Five Impairment knee flexion/extension strength 3/5 post-op Jail Goal (LTG) Pt will improve L knee flexion and extension strength to at least 4+/5 MMT in order to demonstrate increased strength required for balance, gait, and ADLs LTG Duration 12 weeks 05/09/24 Four Impairment pain with transfers into car, tub, STS Short Term Goal (STG) Pt will report <3/10 L knee pain with transfers in/out of car or tub in order to demonstrate improvements in L knee AROM and pain management STG Duration 6 weeks 03/28/24 Jail Goal (LTG) Pt will improve 5x STS time to 12.6 sec or better from standard chair without increase in L knee pain in order to demonstrate improved knee flexion for transfers and BLE strength LTG Duration 12 weeks 05/09/24 Three Impairment not performing HEP Short Term Goal (STG) Pt will be issued HEP and report compliance 2-3x/wk in order to maximize progression with PT STG Duration 3 weeks Jail Goal (LTG) Pt will report compliance with HEP 3x/wk in order to transition to maintenance program and maintain progress made during PT LTG Duration 12 weeks 05/09/24 Two Impairment pre-op 6 MWT distance 1094 ft; post op 664 ft w/ spc Short Term Goal (STG) Pt will normalize gait mechanics at least community distances without AD if appropriate in order to demonstrate increased independence with mobility similar to pre-operative mobility STG Duration 5 weeks 03/21/24 Jail Goal (LTG) Pt will be ambulate >1200 ft ( age-related norm) post op without AD if appropriate in order to demonstrate improved activity tolerance, strength, and ability to return to walks several miles long LTG Duration 12 weeks 05/09/24 One Impairment pre-op L knee ROM 118-8; post op 90-11 deg Short Term Goal (STG) Pt will improve L knee AROM to at least 100 deg flexion and lacking 5 deg extension or less deg in order to improve knee mobility during sitting, gait, and stairs STG Duration 6 weeks 03/28/24 Emergency Dispatcher Goal (LTG) Pt will improve L knee AROM to at least 120 deg flex and 2 deg extension or less post- operatively in order to improve knee mobility during gait and stairs LTG Duration 12 weeks 05/09/24 Assessment Summary Assessment Pt is a 78 y.o. female presenting s/p L TKA on . She is currently 4.5 weeks post-op. Pt had HHPT following release from hospital. Her pain is still high, managed with medication, ice, and movement. Pt has pain with transfers, ambulation, and exercise. She has limitations in L knee AROM (especially flexion) and strength. Her incision is intact without signs of infection, only adhesive present. Pt is reporting L calf pain but not bruising, redness, swelling, or other signs of DVT. Pt is currently using and spc for community mobility but not household mobility. Her quad activation is reduced. Pt's gait is stiff and antalgic with spc with limited knee flexion; she did not use an AD prior to surgery . Pt has impairments in gait, balance, transfers, ROM, strength, mobility, activity tolerance, ability to perform ADLs, pain management, and sensation. PT educated pt on exam findings and plan of care . Pt would benefit from skilled PT for progressive L knee ROM and strengthening in order to normalize gait mechanics, improve balance, and to improve activity tolerance. Physical Therapy Plan Frequency and Duration Frequency of Treatment 2x/Week Duration of treatment (weeks) 12 Plan of Care Start Date 02/14/24 Plan of Care End Date 05/09/24 Therapeutic Interventions Therapeutic Interventions Balance Training,Gait Training ,Home Exercise Program,Joint Mobilizations,Manual Therapy, Neuromuscular Re-education, Orthotic/Prosthetic Management ,Patient/Caregiver Education, Self-Care/Home Management, Sensory Integration,Soft Tissue Mobilization,Taping, Therapeutic Activities, Therapeutic Exercises Modalities Cold Pack/Ice Massage,Electric Stimulation,Hot Packs, Vasopneumatic Devices Next Visit Focus/Plan Next Note Type Treatment Note Next Visit Plan Review HEP. Promote knee extension. Trial e-stim to quad. Information on de- sensitization TKE into ball, LAQ vs SAQ, cont quad set. Heel slides, minisquat vs STS, heel raises, calf/HS/quad stretch
--- NOTE | 2024-02-14 15:56 | PT.OTRE ---
Addendum entered and electronically signed by Genny Stein PT 02/15/24 16:18: update assessment Original Note: Current Diagnoses Unilateral primary osteoarthritis, left knee (02/14/24) Stiffness of left knee, not elsewhere classified (02/14/24) Other lack of coordination (02/14/24) Weakness (02/14/24) Past Medical History (Last Reviewed 01/11/24 @ 11:00 by Latrice Martinez, RN) Abnormal Pap smear of cervix Anemia in chronic kidney disease Angioedema Chronic low back pain with sciatica Crohn's disease Diabetes mellitus Duodenal ulcer GERD (gastroesophageal reflux disease) Grade II diastolic dysfunction Hyperlipidemia Hyperparathyroidism Morbid obesity Surgical History (Last Reviewed 01/11/24 @ 11:00 by Latrice Martinez, RN) History of left oophorectomy Status post cone biopsy of cervix Status post laparoscopic cholecystectomy Visit Care Team Role Provider Type Jovan Nichols MD Family Provider Physician Primary Care Provider Specialty: Family Practice Address: [address] [place] [address], [id number] Email: [email or web address] Adama Rebollar MD Attending Provider Physician Referring Provider Specialty: Orthopedics Orthopedic Surgery Address: [address] [place] [address], [id number] Email: [email or web address] Re-Evaluation PT-OP-A Visit Information Start: 01/10/24 10:30 Freq: Status: Active Protocol: Document 02/14/24 13:42 NM (Rec: 02/14/24 14:32 NM [id number]) Out-Patient Physical Therapy Visit Information Visit Information Visit Type Re-Evaluation Visit Note s/p L TKA 01/11/24 Visit Start Time 13:45 Visit Stop Time 14:30 Visit Number 2 Precautions Precautions DOS L TKA 01/11/24 PMH diabetes II PT-OP-B Current Condition Start: 01/10/24 10:30 Freq: Status: Active Protocol: Document 02/14/24 13:42 NM (Rec: 02/14/24 14:32 NM [id number]) Current Condition History of Current Condition Onset Date DOS 01/11/24 Current Complaints pain, mobility History of Current Condition 02/14/24: Pt now s/p L TKA. PT just had HHPT, reports went well. She has been doing her exercises everyday. Pt reports pain with getting in/out of car, sitting in car, ambulating, stairs. Has been going on walks 1/4 mi a few times, up and moving around house. Pt has been ambulating at home without spc in R hand. States 6/10 L knee pain at rest, 8/10 with movement; states worse at night. Only taking acetominophen for pain, orn takes ocycodone (bed time ). Has been using spc for about 2 weeks. 01/10/24: Pt will be having a L TKA tomorrow 01/10/[address] Rebollar. Pt has had fluid taken off several times, cortisone, hyaluronic acid to help with injections. Pt reports no difficulty with her R knee. She has 3 steps into home, rail on R side to enter; single story home. Pt presents with FWW. She has not been using an AD prior to surgery. Pt lives alone but her daughter lives in the same town; hoping daughter will help. Pt reports that she has aches in the back of her L leg (calf). Pt reports that the walker can fit in her home. She has a shower bar in her shower, none for toilet (low toilet). She is planning to be in hospital overnight. Treatment Goals Patient/Caregiver Goals walking a couple miles/day ( flat), back to yoga (a couple times/wk) PT-OP-C Subjective Start: 01/10/24 10:30 Freq: Status: Active Protocol: Document 02/14/24 13:42 NM (Rec: 02/14/24 14:32 NM [id number]) OP-PT Subjective Patient Comments Patient Comments Pt consents to participate in re-evaluation Patient Questionnaires Lower Extremity Functional Scale LEFS Score 02/14/24: ; 01/09: OP-PT Pain Assessment Location L knee Pain Location Details medial and lateral Intensity 7 Scale Used Numeric (0 - 10) Description Aching,Dull,Sharp Frequency Frequent Radiating Location down calf most of time Pain Aggravating Factors Position,Changing Position, Activity,Exercise,Standing, Walking Pain Alleviating Factors Cold,Medication,Elevation,Rest PT-OP-D Balance Start: 01/10/24 10:30 Freq: Status: Active Protocol: Document 02/14/24 13:42 NM (Rec: 02/14/24 16:12 NM [id number]) Balance Tests Single Limb Standing Single Limb- Right 4 seconds Single Limb- Left 1 second with pain Tandem Tandem Standing 15 seconds PT-OP-E Functional Tests Start: 01/10/24 10:30 Freq: Status: Active Protocol: Document 02/14/24 13:42 NM (Rec: 02/14/24 14:32 NM [id number]) Functional Tests 6 Minute Walk Test Distance 02/13: 664 ft; 01/09: 1094 ft Device Used 02/13: spc; 01/09: no AD Comments 02/13, 01/09: pain in L knee Five Times Sit to Stand Test Score 02/14/24: 15.37 sec, 01/09: 16. 8 sec Comments painful, LLE more forward PT-OP-F Manual Assessment Start: 01/10/24 10:30 Freq: Status: Active Protocol: Document 02/14/24 13:42 NM (Rec: 02/14/24 15:41 NM [id number]) Manual Assessments Soft Tissue Assessment Soft Tissue Mobility Assessment Tightness of anterior knee over scar. Restrictions of L hamstring and quad, calf Joint Mobility Assessment Joint Mobility Assessment Hypomobility of L knee, pain with knee flexion especially anterior over scar. Tendency for L hip ER as position of comfort PT-OP-G Mobility & Gait Start: 01/10/24 10:30 Freq: Status: Active Protocol: Document 02/14/24 13:42 NM (Rec: 02/14/24 15:41 NM [id number]) OP Mobility Evaluation Transfers Sit to Stand No UE assist from 18 but [address] LLE more forward than RLE OP Gait Assessment Gait Gait Assistance Required: Standby Assistance Distance (Feet) 664 Assistive Devices Assistive Device Gait Belt,Straight Cane Gait Deviations General Gait Pattern Antalgic Factors Limiting Gait Function Factors Limiting Gait Function Decreased Strength,Pain Comments Gait Comments Tendency for L hip ER with stance and swing if not using spc, then more neutral. Has very stiff L stance, minimal knee flexion even with cueing. Pre-opo: 1094 ft without AD PT-OP-H Neuro Start: 01/10/24 10:30 Freq: Status: Active Protocol: Document 02/14/24 13:42 NM (Rec: 02/14/24 16:12 NM [id number]) Sensation Evaluation Comments Summary Comments Will assess formally next session Increased sensitivity around/ on incision and on either side of L knee PT-OP-J Posture/Palpation/Skin Start: 01/10/24 10:30 Freq: Status: Active Protocol: Document 02/14/24 13:42 NM (Rec: 02/14/24 15:41 NM [id number]) Posture Evaluation Position Standing Head/C-Spine Posture Forward Head T-Spine Posture Increased Kyphosis Shoulder Posture (L) Rounded,(R) Rounded Pelvis Posture Anteriorly Tilted Weight Distribution Weight Shifted Right Hip Posture (R) Neutral,(L) Externally Rotated Knee Posture (L) Genu Valgus,(R) Genu Valgus Palpation Assessment Location L knee Palpation Details Tenderness along medial and lateral knee Increased sensitivity along scar, medial and lateral knee Increased tightness of calf, hamstrings, quads, hip flexores Skin Assessment Incisional Assessment Incision Appearance/Comments Incision intact, pink, clean and dry. No signs of infection or DVT, only reported tenderness of proximal calf. Over incision, leftover adhesive from bandage present PT-OP-K Range of Motion Start: 01/10/24 10:30 Freq: Status: Active Protocol: Document 02/14/24 13:42 NM (Rec: 02/14/24 14:32 NM [id number]) Knee Goniometric Range of Motion Knee Measured in Degrees Right Flexion Active (degrees) 120 Extension Active (degrees) 2 Left Flexion Active (degrees) 90 Extension Active (degrees) 11 Comments Pre-operative: 118 deg knee flexion, lacking 8 deg extension; Post op: 90 deg flex, lacking 11 deg ext PT-OP-M Strength Start: 01/10/24 10:30 Freq: Status: Active Protocol: Document 02/14/24 13:42 NM (Rec: 02/14/24 14:32 NM [id number]) Hip Strength Hip Manual Muscle Testing Right Flexion (L2) 4- Good- Extension (S1) 4- Good- Abduction 4- Good- Adduction 4- Good- Left Flexion (L2) 3+ Fair+ Extension (S1) 3+ Fair+ Abduction 3+ Fair+ Adduction 3+ Fair+ Comments No change from 01/09 pre-op visit Knee Strength Knee Manual Muscle Testing Right Flexion (S2) 4 Good Extension (L3) 4 Good Left Flexion (S2) 3 Fair Extension (L3) 3 Fair Comments 01/09 pre-operative: 3+/5 PT-OP-Q Treatments Start: 01/10/24 10:30 Freq: Status: Active Protocol: Document 02/14/24 13:42 NM (Rec: 02/14/24 14:32 NM [id number]) Therapeutic Exercises Supine Exercises heel slide Side left Resistance AROM Reps/Minutes 10 w/ brief hold Comments painful in knee Sitting Exercises knee extension stretch Side left Equipment Used towel roll under foot Reps/Minutes 2 minutes quad set Sitting Exercise Name 1. on towel roll, 2. heel elevated on roll for passive knee ext stretch Side left Equipment Used performed with tapping to facilitate quad Reps/Minutes 1. 15x3, 2.10x3 Comments HEP- improved activation with reps knee extension mobilization Sitting Exercise Name HEP Side left Reps/Minutes 10x3 - edu can progress to foot elevated on short chair Comments heel on floor, self mob above knee; pain free Self-Care/Home Management Treatment Education Other Education Educated to keep L foot position into neutral and limit time spent in hip ER despite position of comfort to allow for full knee extension and decrease strain on hip/ knee; recommended placing a pillow or other small object next to foot in supine or in sitting to limit hip ER tendency. Educated on signs/ symptoms of DVT PT-OP-T Assessment and Plan Start: 01/10/24 10:30 Freq: Status: Active Protocol: Document 02/14/24 13:42 NM (Rec: 02/14/24 14:32 NM [id number]) Physical Therapy Assessment Rehab Potential Rehabilitation Potential Good Evaluation Complexity Number of Personal Factors/Comorbidities 3 or More Number of Body Systems Impaired 4 or More Clinical Presentation at Evaluation Stable Impairments Impairments Activity Tolerance,Balance, Functional Activities, Functional Mobility,Gait,Pain, Posture,ROM,Sensation,Soft Tissue Mobility,Strength, Transfers Other Concerns Age Related Concerns PMH: Crohn's disease, diabetes II, arthritis, kidney disease , hearing Barriers to Rehabilitation Pt has a high copay which may limit pt's progression with PT Goals Five Impairment knee flexion/extension strength 3/5 post-op Legal Technician Goal (LTG) Pt will improve L knee flexion and extension strength to at least 4+/5 MMT in order to demonstrate increased strength required for balance, gait, and ADLs LTG Duration 12 weeks 05/09/24 Four Impairment pain with transfers into car, tub, STS Short Term Goal (STG) Pt will report <3/10 L knee pain with transfers in/out of car or tub in order to demonstrate improvements in L knee AROM and pain management STG Duration 6 weeks 03/28/24 Legal Technician Goal (LTG) Pt will improve 5x STS time to 12.6 sec or better from standard chair without increase in L knee pain in order to demonstrate improved knee flexion for transfers and BLE strength LTG Duration 12 weeks 05/09/24 Three Impairment not performing HEP Short Term Goal (STG) Pt will be issued HEP and report compliance 2-3x/wk in order to maximize progression with PT STG Duration 3 weeks Custodial Goal (LTG) Pt will report compliance with HEP 3x/wk in order to transition to maintenance program and maintain progress made during PT LTG Duration 12 weeks 05/09/24 Two Impairment pre-op 6 MWT distance 1094 ft; post op 664 ft w/ spc Short Term Goal (STG) Pt will normalize gait mechanics at least community distances without AD if appropriate in order to demonstrate increased independence with mobility similar to pre-operative mobility STG Duration 5 weeks 03/21/24 Legal Technician Goal (LTG) Pt will be ambulate >1200 ft ( age-related norm) post op without AD if appropriate in order to demonstrate improved activity tolerance, strength, and ability to return to walks several miles long LTG Duration 12 weeks 05/09/24 One Impairment pre-op L knee ROM 118-8; post op 90-11 deg Short Term Goal (STG) Pt will improve L knee AROM to at least 100 deg flexion and lacking 5 deg extension or less deg in order to improve knee mobility during sitting, gait, and stairs STG Duration 6 weeks 03/28/24 Legal Technician Goal (LTG) Pt will improve L knee AROM to at least 120 deg flex and 2 deg extension or less post- operatively in order to improve knee mobility during gait and stairs LTG Duration 12 weeks 05/09/24 Assessment Summary Assessment Pt is a 78 y.o. female presenting s/p L TK on 01/11/24 . She is currently 4.5 weeks post-op. Pt had HHPT following release from hospital. Her pain is still high, managed with medication, ice, and movement. Pt has pain with transfers, ambulation, and exercise. She has limitations in L knee AROM (especially flexion) and strength. Her incision is intact without signs of infection, only adhesive present. Pt is reporting L calf pain but not bruising, redness, swelling, or other signs of DVT. Pt is currently using and spc for community mobility but not household mobility. Her quad activation is reduced. Pt's gait is stiff and antalgic with spc with limited knee flexion; she did not use an AD prior to surgery. Pt has impairments in gait, balance, transfers, ROM, strength, mobility, activity tolerance, ability to perform ADLs, pain management, and sensation. PT educated pt on exam findings and plan of care. Pt would benefit from skilled PT for progressive L knee ROM and strengthening in order to normalize gait mechanics, improve balance, and to improve activity tolerance. Physical Therapy Plan Frequency and Duration Frequency of Treatment 2x/Week Duration of treatment (weeks) 12 Plan of Care Start Date 02/14/24 Plan of Care End Date 05/09/24 Therapeutic Interventions Therapeutic Interventions Balance Training,Gait Training ,Home Exercise Program,Joint Mobilizations,Manual Therapy, Neuromuscular Re-education, Orthotic/Prosthetic Management ,Patient/Caregiver Education, Self-Care/Home Management, Sensory Integration,Soft Tissue Mobilization,Taping, Therapeutic Activities, Therapeutic Exercises Modalities Cold Pack/Ice Massage,Electric Stimulation,Hot Packs, Vasopneumatic Devices Next Visit Focus/Plan Next Note Type Treatment Note Next Visit Plan Review HEP. Promote knee extension. Trial e-stim to quad. Information on de- sensitization TKE into ball, LAQ vs SAQ, cont quad set. Heel slides, minisquat vs STS, heel raises, calf/HS/quad stretch
--- NOTE | 2024-02-19 12:55 | PT.OTN ---
Current Diagnoses Unilateral primary osteoarthritis, left knee (02/19/24) Stiffness of left knee, not elsewhere classified (02/19/24) Other lack of coordination (02/19/24) Weakness (02/19/24) Physical Therapy Treatment Note PT-OP-A Visit Information Start: 01/10/24 10:30 Freq: Status: Active Protocol: Document 02/19/24 11:35 NM (Rec: 02/19/24 12:05 NM [id number]) Out-Patient Physical Therapy Visit Information Visit Information Visit Type Treatment Note Visit Note s/p L TKA 01/11/24 Visit Start Time 11:35 Visit Stop Time 12:15 Visit Number 3 Evaluation Information Evaluation Date 01/10/24 PT-OP-B Current Condition Start: 01/10/24 10:30 Freq: Status: Active Protocol: Document 02/14/24 13:42 NM (Rec: 02/14/24 14:32 NM [id number]) Current Condition History of Current Condition Onset Date DOS 01/11/24 Current Complaints pain, mobility History of Current Condition 02/14/24: Pt now s/p L TKA. PT just had HHPT, reports went well. She has been doing her exercises everyday. Pt reports pain with getting in/out of car, sitting in car, ambulating, stairs. Has been going on walks 1/4 mi a few times, up and moving around house. Pt has been ambulating at home without spc in R hand. States 6/10 L knee pain at rest, 8/10 with movement; states worse at night. Only taking acetominophen for pain, orn takes ocycodone (bed time ). Has been using spc for about 2 weeks. 01/10/24: Pt will be having a L TKA tomorrow 01/10/[address] Rebollar. Pt has had fluid taken off several times, cortisone, hyaluronic acid to help with injections. Pt reports no difficulty with her R knee. She has 3 steps into home, rail on R side to enter; single story home. Pt presents with FWW. She has not been using an AD prior to surgery. Pt lives alone but her daughter lives in the same town; hoping daughter will help. Pt reports that she has aches in the back of her L leg (calf). Pt reports that the walker can fit in her home. She has a shower bar in her shower, none for toilet (low toilet). She is planning to be in hospital overnight. Treatment Goals Patient/Caregiver Goals walking a couple miles/day ( flat), back to yoga (a couple times/wk) PT-OP-C Subjective Start: 01/10/24 10:30 Freq: Status: Active Protocol: Document 02/19/24 11:35 NM (Rec: 02/19/24 12:05 NM [id number]) OP-PT Subjective Patient Comments Patient Comments Pt reports 4/10 knee pain today. States night is worse. She walked a quarter mi yesterday, no increase in pain . She reports scar is burning, states using cococnut oil. She has follow up with surgeon on PT-OP-D Balance Start: 01/10/24 10:30 Freq: Status: Active Protocol: Document 02/14/24 13:42 NM (Rec: 02/14/24 16:12 NM [id number]) Balance Tests Single Limb Standing Single Limb- Right 4 seconds Single Limb- Left 1 second with pain Tandem Tandem Standing 15 seconds PT-OP-E Functional Tests Start: 01/10/24 10:30 Freq: Status: Active Protocol: Document 02/14/24 13:42 NM (Rec: 02/14/24 14:32 NM [id number]) Functional Tests 6 Minute Walk Test Distance 02/13: 664 ft; 01/09: 1094 ft Device Used 02/13: spc; 01/09: no AD Comments 02/13, 01/09: pain in L knee Five Times Sit to Stand Test Score 02/14/24: 15.37 sec, 01/09: 16. 8 sec Comments painful, LLE more forward PT-OP-F Manual Assessment Start: 01/10/24 10:30 Freq: Status: Active Protocol: Document 02/14/24 13:42 NM (Rec: 02/14/24 15:41 NM [id number]) Manual Assessments Soft Tissue Assessment Soft Tissue Mobility Assessment Tightness of anterior knee over scar. Restrictions of L hamstring and quad, calf Joint Mobility Assessment Joint Mobility Assessment Hypomobility of L knee, pain with knee flexion especially anterior over scar. Tendency for L hip ER as position of comfort PT-OP-G Mobility & Gait Start: 01/10/24 10:30 Freq: Status: Active Protocol: Document 02/14/24 13:42 NM (Rec: 02/14/24 15:41 NM [id number]) OP Mobility Evaluation Transfers Sit to Stand No UE assist from 18 but [address] LLE more forward than RLE OP Gait Assessment Gait Gait Assistance Required: Standby Assistance Distance (Feet) 664 Assistive Devices Assistive Device Gait Belt,Straight Cane Gait Deviations General Gait Pattern Antalgic Factors Limiting Gait Function Factors Limiting Gait Function Decreased Strength,Pain Comments Gait Comments Tendency for L hip ER with stance and swing if not using spc, then more neutral. Has very stiff L stance, minimal knee flexion even with cueing. Pre-opo: 1094 ft without AD PT-OP-H Neuro Start: 01/10/24 10:30 Freq: Status: Active Protocol: Document 02/14/24 13:42 NM (Rec: 02/14/24 16:12 NM [id number]) Sensation Evaluation Comments Summary Comments Will assess formally next session Increased sensitivity around/ on incision and on either side of L knee PT-OP-J Posture/Palpation/Skin Start: 01/10/24 10:30 Freq: Status: Active Protocol: Document 02/14/24 13:42 NM (Rec: 02/14/24 15:41 NM [id number]) Posture Evaluation Position Standing Head/C-Spine Posture Forward Head T-Spine Posture Increased Kyphosis Shoulder Posture (L) Rounded,(R) Rounded Pelvis Posture Anteriorly Tilted Weight Distribution Weight Shifted Right Hip Posture (R) Neutral,(L) Externally Rotated Knee Posture (L) Genu Valgus,(R) Genu Valgus Palpation Assessment Location L knee Palpation Details Tenderness along medial and lateral knee Increased sensitivity along scar, medial and lateral knee Increased tightness of calf, hamstrings, quads, hip flexores Skin Assessment Incisional Assessment Incision Appearance/Comments Incision intact, pink, clean and dry. No signs of infection or DVT, only reported tenderness of proximal calf. Over incision, leftover adhesive from bandage present PT-OP-K Range of Motion Start: 01/10/24 10:30 Freq: Status: Active Protocol: Document 02/14/24 13:42 NM (Rec: 02/14/24 14:32 NM [id number]) Knee Goniometric Range of Motion Knee Right Flexion Active (degrees) 120 Extension Active (degrees) 2 Left Flexion Active (degrees) 90 Extension Active (degrees) 11 Comments Pre-operative: 118 deg knee flexion, lacking 8 deg extension; Post op: 90 deg flex, lacking 11 deg ext PT-OP-M Strength Start: 01/10/24 10:30 Freq: Status: Active Protocol: Document 02/14/24 13:42 NM (Rec: 02/14/24 14:32 NM [id number]) Hip Strength Hip Manual Muscle Testing Right Flexion (L2) 4- Good- Extension (S1) 4- Good- Abduction 4- Good- Adduction 4- Good- Left Flexion (L2) 3+ Fair+ Extension (S1) 3+ Fair+ Abduction 3+ Fair+ Adduction 3+ Fair+ Comments No change from 01/09 pre-op visit Knee Strength Knee Manual Muscle Testing Right Flexion (S2) 4 Good Extension (L3) 4 Good Left Flexion (S2) 3 Fair Extension (L3) 3 Fair Comments 01/09 pre-operative: 3+/5 PT-OP-Q Treatments Start: 01/10/24 10:30 Freq: Status: Active Protocol: Document 02/19/24 11:35 NM (Rec: 02/19/24 12:05 NM [id number]) Therapeutic Exercises Supine Exercises SAQ Supine Exercise Name 1. w/ e-stim, 2. w/o e-stim ( HEP) Side left Equipment Used foam roller Reps/Minutes 1. 3 min, 2. 10x3 knee flexion Side bilateral Equipment Used small blue scottish ball Reps/Minutes 2x60 Comments better tolerance than heel slides heel slide Supine Exercise Name AROM > AAROM (HEP) Side left Reps/Minutes 10x5 ea Comments post manual quad set Supine Exercise Name w/ e-stim today Manual Therapy Treatment Consent Patient gave verbal consent for manual Yes treatment Soft Tissue Mobilization L knee Body Location scar mobilization, swelling mgmt, quad, HS, calf Mobilization Type Rolling,Strumming Intensity/Depth Superficial Body Position Hooklying Comments Leg elevated on bolster. Monitored for pain. Tenderness over proximal calf, medial thigh, and hamstrings. Reduced with soft tissue mobilization Self-Care/Home Management Treatment Education Patient Education Joint Protection,Pain Management Other Education Education on positioning in bed with pillow under calf ( not knee) in supine for comfort and between legs in sidelying. Recommended not staying in 1 position at a time to improve comfort. PT-OP-R Modalities Start: 02/19/24 12:05 Freq: Status: Active Protocol: Document 02/19/24 11:35 NM (Rec: 02/19/24 12:09 NM [id number]) Electric Stimulation Electric Stimulation German Intensity 11 Frequency 50 Contraction Type Normal Cycle 10/10 Ramp 2.0 Patient Position Hooklying Comments Skin assessed before, during prior. Sensation intact. Performed with quad set (towel under knee), quad set (towel under ankle), SAQ (foam roller ) PT-OP-T Assessment and Plan Start: 01/10/24 10:30 Freq: Status: Active Protocol: Document 02/19/24 11:35 NM (Rec: 02/19/24 12:05 NM [id number]) Physical Therapy Assessment Goals Five Impairment knee flexion/extension strength 3/5 post-op Wood Fence Installer Goal (LTG) Pt will improve L knee flexion and extension strength to at least 4+/5 MMT in order to demonstrate increased strength required for balance, gait, and ADLs LTG Duration 12 weeks 05/09/24 Four Impairment pain with transfers into car, tub, STS Short Term Goal (STG) Pt will report <3/10 L knee pain with transfers in/out of car or tub in order to demonstrate improvements in L knee AROM and pain management STG Duration 6 weeks 03/28/24 Wood Fence Installer Goal (LTG) Pt will improve 5x STS time to 12.6 sec or better from standard chair without increase in L knee pain in order to demonstrate improved knee flexion for transfers and BLE strength LTG Duration 12 weeks 05/09/24 Three Impairment not performing HEP Short Term Goal (STG) Pt will be issued HEP and report compliance 2-3x/wk in order to maximize progression with PT STG Duration 3 weeks Mcc Goal (LTG) Pt will report compliance with HEP 3x/wk in order to transition to maintenance program and maintain progress made during PT LTG Duration 12 weeks 05/09/24 Two Impairment pre-op 6 MWT distance 1094 ft; post op 664 ft w/ spc Short Term Goal (STG) Pt will normalize gait mechanics at least community distances without AD if appropriate in order to demonstrate increased independence with mobility similar to pre-operative mobility STG Duration 5 weeks 03/21/24 Mcc Goal (LTG) Pt will be ambulate >1200 ft ( age-related norm) post op without AD if appropriate in order to demonstrate improved activity tolerance, strength, and ability to return to walks several miles long LTG Duration 12 weeks 05/09/24 One Impairment pre-op L knee ROM 118-8; post op 90-11 deg Short Term Goal (STG) Pt will improve L knee AROM to at least 100 deg flexion and lacking 5 deg extension or less deg in order to improve knee mobility during sitting, gait, and stairs STG Duration 6 weeks 03/28/24 Mcc Goal (LTG) Pt will improve L knee AROM to at least 120 deg flex and 2 deg extension or less post- operatively in order to improve knee mobility during gait and stairs LTG Duration 12 weeks 05/09/24 Assessment Summary Assessment Pt currently 5 weeks post op. She has 108 deg knee flexion and 0 deg knee ext at end of session. Continued with knee flexion mobility using heel slides and knee flexion on ball. Initiated German e- stim for improved quad activation; initiated SAQ for more end range extension. Pt responds well to e-stim, observable improvement post manual and e-stim/exercise ( measured only end of session). Educated on gentle scar mobility and recommended against putting any lotion/ coconut oil on scar until ok by MD. Education also on sleeping position for comfort, pillow use under calf but without maintaining knee flexion. Pt would benefit from skilled PT for progressive L knee AROM and strengthening in order to improve functional mobility and ability to perform ADLs/IADLs. Physical Therapy Plan Frequency and Duration Frequency of Treatment 2x/Week Duration of treatment (weeks) 12 Plan of Care Start Date 02/14/24 Plan of Care End Date 05/09/24 Therapeutic Interventions Therapeutic Interventions Balance Training,Gait Training ,Home Exercise Program,Joint Mobilizations,Manual Therapy, Neuromuscular Re-education, Orthotic/Prosthetic Management ,Patient/Caregiver Education, Self-Care/Home Management, Sensory Integration,Soft Tissue Mobilization,Taping, Therapeutic Activities, Therapeutic Exercises Modalities Cold Pack/Ice Massage,Electric Stimulation,Hot Packs, Vasopneumatic Devices Next Visit Focus/Plan Next Note Type Treatment Note Next Visit Plan Review HEP. Promote knee extension AROM- into ball.Cont e-stim to quad as needed. Information on de- sensitization (handout) TKE into ball, LAQ vs SAQ, cont quad set. Heel slides, minisquat vs STS, heel raises, calf/HS/quad stretch. step tap for knee flexion
--- NOTE | 2024-02-21 12:56 | PT.OTN ---
Current Diagnoses Unilateral primary osteoarthritis, left knee (02/21/24) Stiffness of left knee, not elsewhere classified (02/21/24) Other lack of coordination (02/21/24) Weakness (02/21/24) Physical Therapy Treatment Note PT-OP-A Visit Information Start: 01/10/24 10:30 Freq: Status: Active Protocol: Document 02/21/24 11:33 NM (Rec: 02/21/24 12:23 NM [id number]) Out-Patient Physical Therapy Visit Information Visit Information Visit Type Treatment Note Visit Note s/p L TKA 01/11/24 Visit Start Time 11:34 Visit Stop Time 12:15 Visit Number 4 Evaluation Information Evaluation Date 01/10/24 Precautions Precautions DOS L TKA 01/11/24 PMH diabetes II PT-OP-B Current Condition Start: 01/10/24 10:30 Freq: Status: Active Protocol: Document 02/14/24 13:42 NM (Rec: 02/14/24 14:32 NM [id number]) Current Condition History of Current Condition Onset Date DOS 01/11/24 Current Complaints pain, mobility History of Current Condition 02/14/24: Pt now s/p L TKA. PT just had HHPT, reports went well. She has been doing her exercises everyday. Pt reports pain with getting in/out of car, sitting in car, ambulating, stairs. Has been going on walks 1/4 mi a few times, up and moving around house. Pt has been ambulating at home without spc in R hand. States 6/10 L knee pain at rest, 8/10 with movement; states worse at night. Only taking acetominophen for pain, orn takes ocycodone (bed time ). Has been using spc for about 2 weeks. 01/10/24: Pt will be having a L TKA tomorrow 01/10/[address] Rebollar. Pt has had fluid taken off several times, cortisone, hyaluronic acid to help with injections. Pt reports no difficulty with her R knee. She has 3 steps into home, rail on R side to enter; single story home. Pt presents with FWW. She has not been using an AD prior to surgery. Pt lives alone but her daughter lives in the same town; hoping daughter will help. Pt reports that she has aches in the back of her L leg (calf). Pt reports that the walker can fit in her home. She has a shower bar in her shower, none for toilet (low toilet). She is planning to be in hospital overnight. Treatment Goals Patient/Caregiver Goals walking a couple miles/day ( flat), back to yoga (a couple times/wk) PT-OP-C Subjective Start: 01/10/24 10:30 Freq: Status: Active Protocol: Document 02/21/24 11:33 NM (Rec: 02/21/24 12:23 NM [id number]) OP-PT Subjective Patient Comments Patient Comments Pt reports sore after last session, had to take oxycodone to help with pain management. Only did exercises 1x yesterday. She reprots 07/31 today, states from having to sit in car to travel. Planning to get a tens unit. Sees Dr. Rebollar at 2 PT-OP-D Balance Start: 01/10/24 10:30 Freq: Status: Active Protocol: Document 02/14/24 13:42 NM (Rec: 02/14/24 16:12 NM [id number]) Balance Tests Single Limb Standing Single Limb- Right 4 seconds Single Limb- Left 1 second with pain Tandem Tandem Standing 15 seconds PT-OP-E Functional Tests Start: 01/10/24 10:30 Freq: Status: Active Protocol: Document 02/14/24 13:42 NM (Rec: 02/14/24 14:32 NM [id number]) Functional Tests 6 Minute Walk Test Distance 02/13: 664 ft; 01/09: 1094 ft Device Used 02/13: spc; 01/09: no AD Comments 02/13, 01/09: pain in L knee Five Times Sit to Stand Test Score 02/14/24: 15.37 sec, 01/09: 16. 8 sec Comments painful, LLE more forward PT-OP-F Manual Assessment Start: 01/10/24 10:30 Freq: Status: Active Protocol: Document 02/14/24 13:42 NM (Rec: 02/14/24 15:41 NM [id number]) Manual Assessments Soft Tissue Assessment Soft Tissue Mobility Assessment Tightness of anterior knee over scar. Restrictions of L hamstring and quad, calf Joint Mobility Assessment Joint Mobility Assessment Hypomobility of L knee, pain with knee flexion especially anterior over scar. Tendency for L hip ER as position of comfort PT-OP-G Mobility & Gait Start: 01/10/24 10:30 Freq: Status: Active Protocol: Document 02/14/24 13:42 NM (Rec: 02/14/24 15:41 NM [id number]) OP Mobility Evaluation Transfers Sit to Stand No UE assist from 18 but places LLE more forward than RLE OP Gait Assessment Gait Gait Assistance Required: Standby Assistance Distance (Feet) 664 Assistive Devices Assistive Device Gait Belt,Straight Cane Gait Deviations General Gait Pattern Antalgic Factors Limiting Gait Function Factors Limiting Gait Function Decreased Strength,Pain Comments Gait Comments Tendency for L hip ER with stance and swing if not using spc, then more neutral. Has very stiff L stance, minimal knee flexion even with cueing. Pre-opo: 1094 ft without AD PT-OP-H Neuro Start: 01/10/24 10:30 Freq: Status: Active Protocol: Document 02/14/24 13:42 NM (Rec: 02/14/24 16:12 NM [id number]) Sensation Evaluation Comments Summary Comments Will assess formally next session Increased sensitivity around/ on incision and on either side of L knee PT-OP-J Posture/Palpation/Skin Start: 01/10/24 10:30 Freq: Status: Active Protocol: Document 02/14/24 13:42 NM (Rec: 02/14/24 15:41 NM [id number]) Posture Evaluation Position Standing Head/C-Spine Posture Forward Head T-Spine Posture Increased Kyphosis Shoulder Posture (L) Rounded,(R) Rounded Pelvis Posture Anteriorly Tilted Weight Distribution Weight Shifted Right Hip Posture (R) Neutral,(L) Externally Rotated Knee Posture (L) Genu Valgus,(R) Genu Valgus Palpation Assessment Location L knee Palpation Details Tenderness along medial and lateral knee Increased sensitivity along scar, medial and lateral knee Increased tightness of calf, hamstrings, quads, hip flexores Skin Assessment Incisional Assessment Incision Appearance/Comments Incision intact, pink, clean and dry. No signs of infection or DVT, only reported tenderness of proximal calf. Over incision, leftover adhesive from bandage present PT-OP-K Range of Motion Start: 01/10/24 10:30 Freq: Status: Active Protocol: Document 02/14/24 13:42 NM (Rec: 02/14/24 14:32 NM [id number]) Knee Goniometric Range of Motion Knee Right Flexion Active (degrees) 120 Extension Active (degrees) 2 Left Flexion Active (degrees) 90 Extension Active (degrees) 11 Comments Pre-operative: 118 deg knee flexion, lacking 8 deg extension; Post op: 90 deg flex, lacking 11 deg ext PT-OP-M Strength Start: 01/10/24 10:30 Freq: Status: Active Protocol: Document 02/14/24 13:42 NM (Rec: 02/14/24 14:32 NM [id number]) Hip Strength Hip Manual Muscle Testing Right Flexion (L2) 4- Good- Extension (S1) 4- Good- Abduction 4- Good- Adduction 4- Good- Left Flexion (L2) 3+ Fair+ Extension (S1) 3+ Fair+ Abduction 3+ Fair+ Adduction 3+ Fair+ Comments No change from 01/09 pre-op visit Knee Strength Knee Manual Muscle Testing Right Flexion (S2) 4 Good Extension (L3) 4 Good Left Flexion (S2) 3 Fair Extension (L3) 3 Fair Comments 01/09 pre-operative: 3+/5 PT-OP-Q Treatments Start: 01/10/24 10:30 Freq: Status: Active Protocol: Document 02/21/24 11:33 NM (Rec: 02/21/24 12:23 NM [id number]) Therapeutic Exercises Supine Exercises SLR Side left Reps/Minutes 5 Comments post e stim; good TKE, no lag, 0 deg TKE at end of session SAQ Supine Exercise Name w/ e-stim quad set Supine Exercise Name w/ e-stim Comments better contraction of quad Sitting Exercises LAQ Sitting Exercise Name HEP Side left Resistance AROM Reps/Minutes 10 Comments post e-stim; cued no lean backward, good activation Standing Exercises knee flexion Standing Exercise Name 1. step taps, 2. angelica Side left Equipment Used 1 hand support balance Reps/Minutes 1. 20, 2. 10 Comments cued knee flex, heel strike mini-squat Standing Exercise Name to chair Side bilateral Equipment Used B hand support on bar, Reps/Minutes 5, Manual Therapy Treatment Consent Patient gave verbal consent for manual Yes treatment Soft Tissue Mobilization L knee Body Location scar mobilization, swelling mgmt, quad, HS, calf Mobilization Type Rolling,Strumming Intensity/Depth Superficial Body Position Hooklying Comments Leg elevated on bolster. Monitored for pain. Tenderness over proximal calf, medial thigh, and hamstrings. Reduced with soft tissue mobilization PT-OP-R Modalities Start: 02/19/24 12:05 Freq: Status: Active Protocol: Document 02/21/24 11:33 NM (Rec: 02/21/24 12:23 NM [id number]) Electric Stimulation Electric Stimulation Brazilian Intensity 12 Frequency 50 Contraction Type Normal Ramp 2.0 Patient Position Hooklying Comments Performed 5/5 today for better ot confort.Skin assessed before, during prior. Sensation intact. Performed with quad set (towel under knee), quad set (towel under ankle), SAQ (foam roller) PT-OP-T Assessment and Plan Start: 01/10/24 10:30 Freq: Status: Active Protocol: Document 02/21/24 11:33 NM (Rec: 02/21/24 12:23 NM [id number]) Physical Therapy Assessment Goals Five Impairment knee flexion/extension strength 3/5 post-op Alf Goal (LTG) Pt will improve L knee flexion and extension strength to at least 4+/5 MMT in order to demonstrate increased strength required for balance, gait, and ADLs LTG Duration 12 weeks 05/09/24 Four Impairment pain with transfers into car, tub, STS Short Term Goal (STG) Pt will report <3/10 L knee pain with transfers in/out of car or tub in order to demonstrate improvements in L knee AROM and pain management STG Duration 6 weeks 03/28/24 Alf Goal (LTG) Pt will improve 5x STS time to 12.6 sec or better from standard chair without increase in L knee pain in order to demonstrate improved knee flexion for transfers and BLE strength LTG Duration 12 weeks 05/09/24 Three Impairment not performing HEP Short Term Goal (STG) Pt will be issued HEP and report compliance 2-3x/wk in order to maximize progression with PT STG Duration 3 weeks Alf Goal (LTG) Pt will report compliance with HEP 3x/wk in order to transition to maintenance program and maintain progress made during PT LTG Duration 12 weeks 05/09/24 Two Impairment pre-op 6 MWT distance 1094 ft; post op 664 ft w/ spc Short Term Goal (STG) Pt will normalize gait mechanics at least community distances without AD if appropriate in order to demonstrate increased independence with mobility similar to pre-operative mobility STG Duration 5 weeks 03/21/24 Loin Puller Goal (LTG) Pt will be ambulate >1200 ft ( age-related norm) post op without AD if appropriate in order to demonstrate improved activity tolerance, strength, and ability to return to walks several miles long LTG Duration 12 weeks 05/09/24 One Impairment pre-op L knee ROM 118-8; post op 90-11 deg Short Term Goal (STG) Pt will improve L knee AROM to at least 100 deg flexion and lacking 5 deg extension or less deg in order to improve knee mobility during sitting, gait, and stairs STG Duration 6 weeks 03/28/24 Loin Puller Goal (LTG) Pt will improve L knee AROM to at least 120 deg flex and 2 deg extension or less post- operatively in order to improve knee mobility during gait and stairs LTG Duration 12 weeks 05/09/24 Assessment Summary Assessment Pt currently 5 weeks and 6 days post op. Demos improved quad activation. Lacking 2 deg ext at start of session and has 106 deg L knee flex. At end of session, has 0 deg extension and 110 deg flexion. Continued with e-stim to promote quad activation. Better TKE with SAQ and LAQ ( initiated today). Trialed SLR, able to do in limited reps but no extensor lag. Initiated step taps and minisquats to promote more functional knee flexion. Pt then progressed to STS which able to do in limited reps without UE assist but with great effort. Still demos less knee flexion during gait, better with cueing for heel strike pattern. Pt would continue to benefit from skilled PT to promote L knee AROM and strength in order to improve ability to perform transfers, gait, and ADLs with more independence. Physical Therapy Plan Frequency and Duration Frequency of Treatment 2x/Week Duration of treatment (weeks) 12 Plan of Care Start Date 02/14/24 Plan of Care End Date 05/09/24 Therapeutic Interventions Therapeutic Interventions Balance Training,Gait Training ,Home Exercise Program,Joint Mobilizations,Manual Therapy, Neuromuscular Re-education, Orthotic/Prosthetic Management ,Patient/Caregiver Education, Self-Care/Home Management, Sensory Integration,Soft Tissue Mobilization,Taping, Therapeutic Activities, Therapeutic Exercises Modalities Cold Pack/Ice Massage,Electric Stimulation,Hot Packs, Vasopneumatic Devices Next Visit Focus/Plan Next Note Type Treatment Note Next Visit Plan Review and condense HEP as needed. Promote knee ext ROM/ maintain and knee flexion ROM. Extension: SAQ > LAQ (inc reps as able), standing TKE w/ band or sitting into ball w/ band. Flexion: Seated knee flexion mob w/ slider vs standing, supine knee flex on ball or wall slide, flexion jt mob grade I-II as mono in sitting. Progress minisquat to STS (inc reps) > leg press as tolerated and step up. seated hip abduction > standing hip abd in side stepping. Promote normal gait and gradually progress off AD as appropriate . Manual: STM, scar mob, grade I -II jt mob Balance training in stance, hurdles
--- NOTE | 2024-02-27 15:20 | PT.OTN ---
Current Diagnoses Unilateral primary osteoarthritis, left knee (02/27/24) Stiffness of left knee, not elsewhere classified (02/27/24) Other lack of coordination (02/27/24) Weakness (02/27/24) Physical Therapy Treatment Note PT-OP-A Visit Information Start: 01/10/24 10:30 Freq: Status: Active Protocol: Document 02/27/24 15:20 TS (Rec: 02/27/24 16:10 TS [id number]) Out-Patient Physical Therapy Visit Information Visit Information Visit Type Treatment Note Visit Note s/p L TKA 01/11/24 Visit Start Time 15:20 Visit Stop Time 16:00 Visit Number 5 PT-OP-B Current Condition Start: 01/10/24 10:30 Freq: Status: Active Protocol: Document 02/14/24 13:42 NM (Rec: 02/14/24 14:32 NM [id number]) Current Condition History of Current Condition Onset Date DOS 01/11/24 Current Complaints pain, mobility History of Current Condition 02/14/24: Pt now s/p L TKA. PT just had HHPT, reports went well. She has been doing her exercises everyday. Pt reports pain with getting in/out of car, sitting in car, ambulating, stairs. Has been going on walks 1/4 mi a few times, up and moving around house. Pt has been ambulating at home without spc in R hand. States 6/10 L knee pain at rest, 8/10 with movement; states worse at night. Only taking acetominophen for pain, orn takes ocycodone (bed time ). Has been using spc for about 2 weeks. 01/10/24: Pt will be having a L TKA tomorrow 01/10/[address] Rebollar. Pt has had fluid taken off several times, cortisone, hyaluronic acid to help with injections. Pt reports no difficulty with her R knee. She has 3 steps into home, rail on R side to enter; single story home. Pt presents with FWW. She has not been using an AD prior to surgery. Pt lives alone but her daughter lives in the same town; hoping daughter will help. Pt reports that she has aches in the back of her L leg (calf). Pt reports that the walker can fit in her home. She has a shower bar in her shower, none for toilet (low toilet). She is planning to be in hospital overnight. Treatment Goals Patient/Caregiver Goals walking a couple miles/day ( flat), back to yoga (a couple times/wk) PT-OP-C Subjective Start: 01/10/24 10:30 Freq: Status: Active Protocol: Document 02/27/24 15:20 TS (Rec: 02/27/24 16:10 TS [id number]) OP-PT Subjective Patient Comments Patient Comments Pt reports soreness in L knee, it kept her up in the night. She slipped on a wet leaf on a walk and twisted her knee. Her knee feels more warm to the touch today. PT-OP-D Balance Start: 01/10/24 10:30 Freq: Status: Active Protocol: Document 02/14/24 13:42 NM (Rec: 02/14/24 16:12 NM [id number]) Balance Tests Single Limb Standing Single Limb- Right 4 seconds Single Limb- Left 1 second with pain Tandem Tandem Standing 15 seconds PT-OP-E Functional Tests Start: 01/10/24 10:30 Freq: Status: Active Protocol: Document 02/14/24 13:42 NM (Rec: 02/14/24 14:32 NM [id number]) Functional Tests 6 Minute Walk Test Distance 02/13: 664 ft; 01/09: 1094 ft Device Used 02/13: spc; 01/09: no AD Comments 02/13, 01/09: pain in L knee Five Times Sit to Stand Test Score 02/14/24: 15.37 sec, 01/09: 16. 8 sec Comments painful, LLE more forward PT-OP-F Manual Assessment Start: 01/10/24 10:30 Freq: Status: Active Protocol: Document 02/14/24 13:42 NM (Rec: 02/14/24 15:41 NM [id number]) Manual Assessments Soft Tissue Assessment Soft Tissue Mobility Assessment Tightness of anterior knee over scar. Restrictions of L hamstring and quad, calf Joint Mobility Assessment Joint Mobility Assessment Hypomobility of L knee, pain with knee flexion especially anterior over scar. Tendency for L hip ER as position of comfort PT-OP-G Mobility & Gait Start: 01/10/24 10:30 Freq: Status: Active Protocol: Document 02/14/24 13:42 NM (Rec: 02/14/24 15:41 NM [id number]) OP Mobility Evaluation Transfers Sit to Stand No UE assist from 18 but places LLE more forward than RLE OP Gait Assessment Gait Gait Assistance Required: Standby Assistance Distance (Feet) 664 Assistive Devices Assistive Device Gait Belt,Straight Cane Gait Deviations General Gait Pattern Antalgic Factors Limiting Gait Function Factors Limiting Gait Function Decreased Strength,Pain Comments Gait Comments Tendency for L hip ER with stance and swing if not using spc, then more neutral. Has very stiff L stance, minimal knee flexion even with cueing. Pre-opo: 1094 ft without AD PT-OP-H Neuro Start: 01/10/24 10:30 Freq: Status: Active Protocol: Document 02/14/24 13:42 NM (Rec: 02/14/24 16:12 NM [id number]) Sensation Evaluation Comments Summary Comments Will assess formally next session Increased sensitivity around/ on incision and on either side of L knee PT-OP-J Posture/Palpation/Skin Start: 01/10/24 10:30 Freq: Status: Active Protocol: Document 02/14/24 13:42 NM (Rec: 02/14/24 15:41 NM [id number]) Posture Evaluation Position Standing Head/C-Spine Posture Forward Head T-Spine Posture Increased Kyphosis Shoulder Posture (L) Rounded,(R) Rounded Pelvis Posture Anteriorly Tilted Weight Distribution Weight Shifted Right Hip Posture (R) Neutral,(L) Externally Rotated Knee Posture (L) Genu Valgus,(R) Genu Valgus Palpation Assessment Location L knee Palpation Details Tenderness along medial and lateral knee Increased sensitivity along scar, medial and lateral knee Increased tightness of calf, hamstrings, quads, hip flexores Skin Assessment Incisional Assessment Incision Appearance/Comments Incision intact, pink, clean and dry. No signs of infection or DVT, only reported tenderness of proximal calf. Over incision, leftover adhesive from bandage present PT-OP-K Range of Motion Start: 01/10/24 10:30 Freq: Status: Active Protocol: Document 02/14/24 13:42 NM (Rec: 02/14/24 14:32 NM [id number]) Knee Goniometric Range of Motion Knee Right Flexion Active (degrees) 120 Extension Active (degrees) 2 Left Flexion Active (degrees) 90 Extension Active (degrees) 11 Comments Pre-operative: 118 deg knee flexion, lacking 8 deg extension; Post op: 90 deg flex, lacking 11 deg ext PT-OP-M Strength Start: 01/10/24 10:30 Freq: Status: Active Protocol: Document 02/14/24 13:42 NM (Rec: 02/14/24 14:32 NM [id number]) Hip Strength Hip Manual Muscle Testing Right Flexion (L2) 4- Good- Extension (S1) 4- Good- Abduction 4- Good- Adduction 4- Good- Left Flexion (L2) 3+ Fair+ Extension (S1) 3+ Fair+ Abduction 3+ Fair+ Adduction 3+ Fair+ Comments No change from 01/09 pre-op visit Knee Strength Knee Manual Muscle Testing Right Flexion (S2) 4 Good Extension (L3) 4 Good Left Flexion (S2) 3 Fair Extension (L3) 3 Fair Comments 01/09 pre-operative: 3+/5 PT-OP-Q Treatments Start: 01/10/24 10:30 Freq: Status: Active Protocol: Document 02/27/24 15:20 TS (Rec: 02/27/24 16:10 TS [id number]) Cardio Equipment Recumbent Bicycle Duration (Minutes) 4 Resistance 3 Seat Position 3 Therapeutic Exercises Supine Exercises SLR Side left Reps/Minutes 5 quad set Reps/Minutes 5x5 Sitting Exercises knee flexion w/slider Reps/Minutes x10 with 3 hold Comments Feels tightness in top of knee LAQ Sitting Exercise Name HEP Reps/Minutes x10 Standing Exercises TKE Side left Resistance LVL 1 Reps/Minutes x10 Manual Therapy Treatment Soft Tissue Mobilization L knee Body Location scar mobilization, swelling mgmt, quad, HS, calf Mobilization Type Rolling,Strumming Intensity/Depth Superficial Body Position Hooklying Comments Leg elevated on bolster. Continues to have restriction on proximal scar. PT-OP-R Modalities Start: 02/19/24 12:05 Freq: Status: Active Protocol: Document 02/21/24 11:33 NM (Rec: 02/21/24 12:23 NM [id number]) Electric Stimulation Electric Stimulation Brazilian Intensity 12 Frequency 50 Contraction Type Normal Ramp 2.0 Patient Position Hooklying Comments Performed 5/5 today for better ot confort.Skin assessed before, during prior. Sensation intact. Performed with quad set (towel under knee), quad set (towel under ankle), SAQ (foam roller) PT-OP-T Assessment and Plan Start: 01/10/24 10:30 Freq: Status: Active Protocol: Document 02/27/24 15:20 TS (Rec: 02/27/24 16:10 TS [id number]) Physical Therapy Assessment Goals Five Impairment knee flexion/extension strength 3/5 post-op Usp Goal (LTG) Pt will improve L knee flexion and extension strength to at least 4+/5 MMT in order to demonstrate increased strength required for balance, gait, and ADLs LTG Duration 12 weeks 05/09/24 Four Impairment pain with transfers into car, tub, STS Short Term Goal (STG) Pt will report <3/10 L knee pain with transfers in/out of car or tub in order to demonstrate improvements in L knee AROM and pain management STG Duration 6 weeks 03/28/24 Usp Goal (LTG) Pt will improve 5x STS time to 12.6 sec or better from standard chair without increase in L knee pain in order to demonstrate improved knee flexion for transfers and BLE strength LTG Duration 12 weeks 05/09/24 Three Impairment not performing HEP Short Term Goal (STG) Pt will be issued HEP and report compliance 2-3x/wk in order to maximize progression with PT STG Duration 3 weeks Usp Goal (LTG) Pt will report compliance with HEP 3x/wk in order to transition to maintenance program and maintain progress made during PT LTG Duration 12 weeks 05/09/24 Two Impairment pre-op 6 MWT distance 1094 ft; post op 664 ft w/ spc Short Term Goal (STG) Pt will normalize gait mechanics at least community distances without AD if appropriate in order to demonstrate increased independence with mobility similar to pre-operative mobility STG Duration 5 weeks 03/21/24 Usp Goal (LTG) Pt will be ambulate >1200 ft ( age-related norm) post op without AD if appropriate in order to demonstrate improved activity tolerance, strength, and ability to return to walks several miles long LTG Duration 12 weeks 05/09/24 One Impairment pre-op L knee ROM 118-8; post op 90-11 deg Short Term Goal (STG) Pt will improve L knee AROM to at least 100 deg flexion and lacking 5 deg extension or less deg in order to improve knee mobility during sitting, gait, and stairs STG Duration 6 weeks 03/28/24 Usp Goal (LTG) Pt will improve L knee AROM to at least 120 deg flex and 2 deg extension or less post- operatively in order to improve knee mobility during gait and stairs LTG Duration 12 weeks 05/09/24 Assessment Summary Assessment Pt continues to demonstrate good quad act with SLR and quad set. Pt is going to borrow a friends recumbent bike, introduced this session. Pt had some difficulty peddling initially but improved with increased time. She reported soreness after bike. Pt continues to have greatest restriction in proximal scar during manual. Swelling mgmt continued this session, pt reports some increased swelling after twisting knee while on a walk. Physical Therapy Plan Next Visit Focus/Plan Next Note Type Treatment Note Next Visit Plan Continue scar mob, swelling mgmt. Assess carryover of TKE, seated knee flexion with slider. Attempt bike again if pt can tolerate. Progress minisquat to STS (inc reps) > leg press as tolerated and step up. seated hip abduction > standing hip abd in side stepping. Promote normal gait and gradually progress off AD as appropriate . Manual: STM, scar mob, grade I -II jt mob Balance training in stance, hurdles.
--- NOTE | 2024-02-29 16:28 | PT.OTN ---
Current Diagnoses Unilateral primary osteoarthritis, left knee (02/29/24) Stiffness of left knee, not elsewhere classified (02/29/24) Other lack of coordination (02/29/24) Weakness (02/29/24) Physical Therapy Treatment Note PT-OP-A Visit Information Start: 01/10/24 10:30 Freq: Status: Active Protocol: Document 02/29/24 15:17 TS (Rec: 02/29/24 16:27 TS [id number]) Out-Patient Physical Therapy Visit Information Visit Information Visit Type Treatment Note Visit Note s/p L TKA 01/11/24 [facility]: [id number] Visit Start Time 15:17 Visit Stop Time 16:00 Visit Number 6 PT-OP-B Current Condition Start: 01/10/24 10:30 Freq: Status: Active Protocol: Document 02/14/24 13:42 NM (Rec: 02/14/24 14:32 NM [id number]) Current Condition History of Current Condition Onset Date DOS 01/11/24 Current Complaints pain, mobility History of Current Condition 02/14/24: Pt now s/p L TKA. PT just had HHPT, reports went well. She has been doing her exercises everyday. Pt reports pain with getting in/out of car, sitting in car, ambulating, stairs. Has been going on walks 1/4 mi a few times, up and moving around house. Pt has been ambulating at home without spc in R hand. States 6/10 L knee pain at rest, 8/10 with movement; states worse at night. Only taking acetominophen for pain, orn takes ocycodone (bed time ). Has been using spc for about 2 weeks. 01/10/24: Pt will be having a L TKA tomorrow 01/10/[address] Rebollar. Pt has had fluid taken off several times, cortisone, hyaluronic acid to help with injections. Pt reports no difficulty with her R knee. She has 3 steps into home, rail on R side to enter; single story home. Pt presents with FWW. She has not been using an AD prior to surgery. Pt lives alone but her daughter lives in the same town; hoping daughter will help. Pt reports that she has aches in the back of her L leg (calf). Pt reports that the walker can fit in her home. She has a shower bar in her shower, none for toilet (low toilet). She is planning to be in hospital overnight. Treatment Goals Patient/Caregiver Goals walking a couple miles/day ( flat), back to yoga (a couple times/wk) PT-OP-C Subjective Start: 01/10/24 10:30 Freq: Status: Active Protocol: Document 02/29/24 15:17 TS (Rec: 02/29/24 16:27 TS [id number]) OP-PT Subjective Patient Comments Patient Comments Pt reports soreness after last session. She is walking up to a 1/4 mile before fatigue sets in. PT-OP-D Balance Start: 01/10/24 10:30 Freq: Status: Active Protocol: Document 02/14/24 13:42 NM (Rec: 02/14/24 16:12 NM [id number]) Balance Tests Single Limb Standing Single Limb- Right 4 seconds Single Limb- Left 1 second with pain Tandem Tandem Standing 15 seconds PT-OP-E Functional Tests Start: 01/10/24 10:30 Freq: Status: Active Protocol: Document 02/14/24 13:42 NM (Rec: 02/14/24 14:32 NM [id number]) Functional Tests 6 Minute Walk Test Distance 02/13: 664 ft; 01/09: 1094 ft Device Used 02/13: spc; 01/09: no AD Comments 02/13, 01/09: pain in L knee Five Times Sit to Stand Test Score 02/14/24: 15.37 sec, 01/09: 16. 8 sec Comments painful, LLE more forward PT-OP-F Manual Assessment Start: 01/10/24 10:30 Freq: Status: Active Protocol: Document 02/14/24 13:42 NM (Rec: 02/14/24 15:41 NM [id number]) Manual Assessments Soft Tissue Assessment Soft Tissue Mobility Assessment Tightness of anterior knee over scar. Restrictions of L hamstring and quad, calf Joint Mobility Assessment Joint Mobility Assessment Hypomobility of L knee, pain with knee flexion especially anterior over scar. Tendency for L hip ER as position of comfort PT-OP-G Mobility & Gait Start: 01/10/24 10:30 Freq: Status: Active Protocol: Document 02/14/24 13:42 NM (Rec: 02/14/24 15:41 NM [id number]) OP Mobility Evaluation Transfers Sit to Stand No UE assist from 18 but places LLE more forward than RLE OP Gait Assessment Gait Gait Assistance Required: Standby Assistance Distance (Feet) 664 Assistive Devices Assistive Device Gait Belt,Straight Cane Gait Deviations General Gait Pattern Antalgic Factors Limiting Gait Function Factors Limiting Gait Function Decreased Strength,Pain Comments Gait Comments Tendency for L hip ER with stance and swing if not using spc, then more neutral. Has very stiff L stance, minimal knee flexion even with cueing. Pre-opo: 1094 ft without AD PT-OP-H Neuro Start: 01/10/24 10:30 Freq: Status: Active Protocol: Document 02/14/24 13:42 NM (Rec: 02/14/24 16:12 NM [id number]) Sensation Evaluation Comments Summary Comments Will assess formally next session Increased sensitivity around/ on incision and on either side of L knee PT-OP-J Posture/Palpation/Skin Start: 01/10/24 10:30 Freq: Status: Active Protocol: Document 02/14/24 13:42 NM (Rec: 02/14/24 15:41 NM [id number]) Posture Evaluation Position Standing Head/C-Spine Posture Forward Head T-Spine Posture Increased Kyphosis Shoulder Posture (L) Rounded,(R) Rounded Pelvis Posture Anteriorly Tilted Weight Distribution Weight Shifted Right Hip Posture (R) Neutral,(L) Externally Rotated Knee Posture (L) Genu Valgus,(R) Genu Valgus Palpation Assessment Location L knee Palpation Details Tenderness along medial and lateral knee Increased sensitivity along scar, medial and lateral knee Increased tightness of calf, hamstrings, quads, hip flexores Skin Assessment Incisional Assessment Incision Appearance/Comments Incision intact, pink, clean and dry. No signs of infection or DVT, only reported tenderness of proximal calf. Over incision, leftover adhesive from bandage present PT-OP-K Range of Motion Start: 01/10/24 10:30 Freq: Status: Active Protocol: Document 02/14/24 13:42 NM (Rec: 02/14/24 14:32 NM [id number]) Knee Goniometric Range of Motion Knee Right Flexion Active (degrees) 120 Extension Active (degrees) 2 Left Flexion Active (degrees) 90 Extension Active (degrees) 11 Comments Pre-operative: 118 deg knee flexion, lacking 8 deg extension; Post op: 90 deg flex, lacking 11 deg ext PT-OP-M Strength Start: 01/10/24 10:30 Freq: Status: Active Protocol: Document 02/14/24 13:42 NM (Rec: 02/14/24 14:32 NM [id number]) Hip Strength Hip Manual Muscle Testing Right Flexion (L2) 4- Good- Extension (S1) 4- Good- Abduction 4- Good- Adduction 4- Good- Left Flexion (L2) 3+ Fair+ Extension (S1) 3+ Fair+ Abduction 3+ Fair+ Adduction 3+ Fair+ Comments No change from 01/09 pre-op visit Knee Strength Knee Manual Muscle Testing Right Flexion (S2) 4 Good Extension (L3) 4 Good Left Flexion (S2) 3 Fair Extension (L3) 3 Fair Comments 01/09 pre-operative: 3+/5 PT-OP-Q Treatments Start: 01/10/24 10:30 Freq: Status: Active Protocol: Document 02/29/24 15:17 TS (Rec: 02/29/24 16:27 TS [id number]) Therapeutic Exercises Supine Exercises SLR Side left Reps/Minutes 10 quad set Reps/Minutes 10x5 Sitting Exercises STS Reps/Minutes x10 Comments Cues for hip hinge knee flexion w/slider Reps/Minutes x10 with 3 hold Comments Feels tightness in top of knee LAQ Sitting Exercise Name HEP Side left Resistance AROM Reps/Minutes x10 Comments post e-stim; cued no lean backward, good activation Standing Exercises TKE Side left Resistance LVL 1 Reps/Minutes x10 Manual Therapy Treatment Soft Tissue Mobilization L knee Body Location scar mobilization, swelling mgmt, quad, HS, calf Mobilization Type Rolling,Strumming Intensity/Depth Superficial Body Position Hooklying Comments Leg elevated on bolster. Tenderness to proximal scar PT-OP-R Modalities Start: 02/19/24 12:05 Freq: Status: Active Protocol: Document 02/21/24 11:33 NM (Rec: 02/21/24 12:23 NM [id number]) Electric Stimulation Electric Stimulation [place] Intensity 12 Frequency 50 Contraction Type Normal Ramp 2.0 Patient Position Hooklying Comments Performed 5/5 today for better ot confort.Skin assessed before, during prior. Sensation intact. Performed with quad set (towel under knee), quad set (towel under ankle), SAQ (foam roller) PT-OP-T Assessment and Plan Start: 01/10/24 10:30 Freq: Status: Active Protocol: Document 02/29/24 15:17 TS (Rec: 02/29/24 16:27 TS [id number]) Physical Therapy Assessment Goals Five Impairment knee flexion/extension strength 3/5 post-op [address] Reporter Goal (LTG) Pt will improve L knee flexion and extension strength to at least 4+/5 MMT in order to demonstrate increased strength required for balance, gait, and ADLs LTG Duration 12 weeks 05/09/24 Four Impairment pain with transfers into car, tub, STS Short Term Goal (STG) Pt will report <3/10 L knee pain with transfers in/out of car or tub in order to demonstrate improvements in L knee AROM and pain management STG Duration 6 weeks 03/28/[address] Goal (LTG) Pt will improve 5x STS time to 12.6 sec or better from standard chair without increase in L knee pain in order to demonstrate improved knee flexion for transfers and BLE strength LTG Duration 12 weeks 05/09/24 Three Impairment not performing HEP Short Term Goal (STG) Pt will be issued HEP and report compliance 2-3x/wk in order to maximize progression with PT STG Duration 3 weeks Care Home Goal (LTG) Pt will report compliance with HEP 3x/wk in order to transition to maintenance program and maintain progress made during PT LTG Duration 12 weeks 05/09/24 Two Impairment pre-op 6 MWT distance 1094 ft; post op 664 ft w/ spc Short Term Goal (STG) Pt will normalize gait mechanics at least community distances without AD if appropriate in order to demonstrate increased independence with mobility similar to pre-operative mobility STG Duration 5 weeks 03/21/24 Care Home Goal (LTG) Pt will be ambulate >1200 ft ( age-related norm) post op without AD if appropriate in order to demonstrate improved activity tolerance, strength, and ability to return to walks several miles long LTG Duration 12 weeks 05/09/24 One Impairment pre-op L knee ROM 118-8; post op 90-11 deg Short Term Goal (STG) Pt will improve L knee AROM to at least 100 deg flexion and lacking 5 deg extension or less deg in order to improve knee mobility during sitting, gait, and stairs STG Duration 6 weeks 03/28/[address] Goal (LTG) Pt will improve L knee AROM to at least 120 deg flex and 2 deg extension or less post- operatively in order to improve knee mobility during gait and stairs LTG Duration 12 weeks 05/09/24 Assessment Summary Assessment Pt fatigues quickly with ther- ex in supine. Has some soreness leaving session today . Proximal scar is tender during manual therapy. Standing TKE and standing hip ABD added to HEP. Pt had soome discomfort in L knee duinrg STS, cued for hip hinge and discomfort in knee improved. Physical Therapy Plan Next Visit Focus/Plan Next Note Type Treatment Note Next Visit Plan Continue scar mob, swelling mgmt. Assess carryover of TKE, seated knee flexion with slider. Attempt bike again if pt can tolerate. Progress minisquat to STS (inc reps) > leg press as tolerated and step up. seated hip abduction > standing hip abd in side stepping. Promote normal gait and gradually progress off AD as appropriate . Manual: STM, scar mob, grade I -II jt mob Balance training in stance, hurdles.
--- NOTE | 2024-03-12 15:43 | PT.OTN ---
Current Diagnoses Unilateral primary osteoarthritis, left knee (03/12/24) Stiffness of left knee, not elsewhere classified (03/12/24) Other lack of coordination (03/12/24) Weakness (03/12/24) Physical Therapy Treatment Note PT-OP-A Visit Information Start: 01/10/24 10:30 Freq: Status: Active Protocol: Document 03/12/24 14:35 NM (Rec: 03/12/24 15:43 NM [id number]) Out-Patient Physical Therapy Visit Information Visit Information Visit Type Progress Note Visit Note s/p L TKA 01/11/24 [facility]: [id number] Visit Start Time 14:35 Visit Stop Time 15:18 Visit Number 7 PT-OP-B Current Condition Start: 01/10/24 10:30 Freq: Status: Active Protocol: Document 02/14/24 13:42 NM (Rec: 02/14/24 14:32 NM [id number]) Current Condition History of Current Condition Onset Date DOS 01/11/24 Current Complaints pain, mobility History of Current Condition 02/14/24: Pt now s/p L TKA. PT just had HHPT, reports went well. She has been doing her exercises everyday. Pt reports pain with getting in/out of car, sitting in car, ambulating, stairs. Has been going on walks 1/4 mi a few times, up and moving around house. Pt has been ambulating at home without spc in R hand. States 6/10 L knee pain at rest, 8/10 with movement; states worse at night. Only taking acetominophen for pain, orn takes ocycodone (bed time ). Has been using spc for about 2 weeks. 01/10/24: Pt will be having a L TKA tomorrow 01/10/[address] Rebollar. Pt has had fluid taken off several times, cortisone, hyaluronic acid to help with injections. Pt reports no difficulty with her R knee. She has 3 steps into home, rail on R side to enter; single story home. Pt presents with FWW. She has not been using an AD prior to surgery. Pt lives alone but her daughter lives in the same town; hoping daughter will help. Pt reports that she has aches in the back of her L leg (calf). Pt reports that the walker can fit in her home. She has a shower bar in her shower, none for toilet (low toilet). She is planning to be in hospital overnight. Treatment Goals Patient/Caregiver Goals walking a couple miles/day ( flat), back to yoga (a couple times/wk) PT-OP-C Subjective Start: 01/10/24 10:30 Freq: Status: Active Protocol: Document 03/12/24 14:35 NM (Rec: 03/12/24 15:43 NM [id number]) OP-PT Subjective Patient Comments Patient Comments Pt reports sore with gait but wants to get off spc. She reports that the scar is still sensitive, mathieu hard. She has trouble with TKE with band . reports 8/10 knee pain at night, 4/10 pain during day. Has trouble with sleeping due to pain PT-OP-D Balance Start: 01/10/24 10:30 Freq: Status: Active Protocol: Document 02/14/24 13:42 NM (Rec: 02/14/24 16:12 NM [id number]) Balance Tests Single Limb Standing Single Limb- Right 4 seconds Single Limb- Left 1 second with pain Tandem Tandem Standing 15 seconds PT-OP-E Functional Tests Start: 01/10/24 10:30 Freq: Status: Active Protocol: Document 02/14/24 13:42 NM (Rec: 02/14/24 14:32 NM [id number]) Functional Tests 6 Minute Walk Test Distance 02/13: 664 ft; 01/09: 1094 ft Device Used 02/13: spc; 01/09: no AD Comments 02/13, 01/09: pain in L knee Five Times Sit to Stand Test Score 02/14/24: 15.37 sec, 01/09: 16. 8 sec Comments painful, LLE more forward PT-OP-F Manual Assessment Start: 01/10/24 10:30 Freq: Status: Active Protocol: Document 02/14/24 13:42 NM (Rec: 02/14/24 15:41 NM [id number]) Manual Assessments Soft Tissue Assessment Soft Tissue Mobility Assessment Tightness of anterior knee over scar. Restrictions of L hamstring and quad, calf Joint Mobility Assessment Joint Mobility Assessment Hypomobility of L knee, pain with knee flexion especially anterior over scar. Tendency for L hip ER as position of comfort PT-OP-G Mobility & Gait Start: 01/10/24 10:30 Freq: Status: Active Protocol: Document 02/14/24 13:42 NM (Rec: 02/14/24 15:41 NM [id number]) OP Mobility Evaluation Transfers Sit to Stand No UE assist from 18 but places LLE more forward than RLE OP Gait Assessment Gait Gait Assistance Required: Standby Assistance Distance (Feet) 664 Assistive Devices Assistive Device Gait Belt,Straight Cane Gait Deviations General Gait Pattern Antalgic Factors Limiting Gait Function Factors Limiting Gait Function Decreased Strength,Pain Comments Gait Comments Tendency for L hip ER with stance and swing if not using spc, then more neutral. Has very stiff L stance, minimal knee flexion even with cueing. Pre-opo: 1094 ft without AD PT-OP-H Neuro Start: 01/10/24 10:30 Freq: Status: Active Protocol: Document 02/14/24 13:42 NM (Rec: 02/14/24 16:12 NM [id number]) Sensation Evaluation Comments Summary Comments Will assess formally next session Increased sensitivity around/ on incision and on either side of L knee PT-OP-J Posture/Palpation/Skin Start: 01/10/24 10:30 Freq: Status: Active Protocol: Document 02/14/24 13:42 NM (Rec: 02/14/24 15:41 NM [id number]) Posture Evaluation Position Standing Head/C-Spine Posture Forward Head T-Spine Posture Increased Kyphosis Shoulder Posture (L) Rounded,(R) Rounded Pelvis Posture Anteriorly Tilted Weight Distribution Weight Shifted Right Hip Posture (R) Neutral,(L) Externally Rotated Knee Posture (L) Genu Valgus,(R) Genu Valgus Palpation Assessment Location L knee Palpation Details Tenderness along medial and lateral knee Increased sensitivity along scar, medial and lateral knee Increased tightness of calf, hamstrings, quads, hip flexores Skin Assessment Incisional Assessment Incision Appearance/Comments Incision intact, pink, clean and dry. No signs of infection or DVT, only reported tenderness of proximal calf. Over incision, leftover adhesive from bandage present PT-OP-K Range of Motion Start: 01/10/24 10:30 Freq: Status: Active Protocol: Document 03/12/24 14:35 NM (Rec: 03/12/24 15:43 NM [id number]) Knee Goniometric Range of Motion Knee Right Flexion Active (degrees) 120 Extension Active (degrees) 2 Left Flexion Active (degrees) 105 Extension Active (degrees) 3 Comments Pre-operative: 118 deg knee flexion, lacking 8 deg extension; Post op: 90 deg flex, lacking 11 deg ext 03/12/24: 105 deg flex start of session (111 post manual) and lacking 3 deg extension PT-OP-M Strength Start: 01/10/24 10:30 Freq: Status: Active Protocol: Document 03/12/24 14:35 NM (Rec: 03/12/24 15:43 NM [id number]) Knee Strength Knee Manual Muscle Testing Right Flexion (S2) 4 Good Extension (L3) 4 Good Left Flexion (S2) 4- Good- Extension (L3) 4- Good- Comments 01/09 pre-operative: 3+/5 post-op: 3/5 03/12/24: 4-/5 PT-OP-Q Treatments Start: 01/10/24 10:30 Freq: Status: Active Protocol: Document 03/12/24 14:35 NM (Rec: 03/12/24 15:43 NM [id number]) Gym Equipment Shuttle Recovery B squat Details for knee flexion AROM Resistance 12# - progress next session Reps/Time 2 min Therapeutic Exercises Supine Exercises SLR Side left Reps/Minutes 10 Comments post manual Standing Exercises knee flexion Standing Exercise Name 1. mobilization, 2. step taps HEP Side left Reps/Minutes 5x10 Gait Training Gait Activity TUG Comments 13 sec with spc, difficulty w/ turning 10.6 sec w/o AD SLS RLE 10 sec; LLE 3 sec then 5 sec; no inc in knee pain normalized mechanics Device Used none Level of Assistance close SBA Surface stable Distance/Duration 6 minutes Treatment Focus knee flexion, normalized mechanics Comments Cued for heel strike, tall posture, more normalized mechanics. Starts with stiff gait but improves with time. good foot clearance. L knee flex still limited in swing. improved steadiness with reps hurdles Device Used no AD, prn hand support for balance Level of Assistance close SBA with prn CGA to steady Distance/Duration 3 hurdles Treatment Focus knee flexion, heel strike Comments 1. B feet btwn hurdles 2. reciprocal pattern Good L stance, L knee flexion challenging. Maintains heel strike. 2 instances CGA to steady Manual Therapy Treatment Consent Patient gave verbal consent for manual Yes treatment Soft Tissue Mobilization L knee Body Location scar mobilization, swelling mgmt, quad, HS, calf Mobilization Type Rolling,Strumming Intensity/Depth Superficial Body Position Hooklying Comments Performed distal > proximal. Tenderness to scar. Tenderness along medial patella and medial knee. Educated on progression with rougher fabrics on ant scar Joint Mobilizations L knee Joint patellar, tibiofemoral Direction inf/sup, med/lat; PA/AP w/ inf glide and slight distract Comments grade I patellar mob for pain management, 2x10 ea grade II-III tibiofemoral mob for ROM and pain, 4x30 Monitored for pain Self-Care/Home Management Treatment Education Other Education Educated to alert referring provider of night pain, recommended to ask about reason for gabapentin rx Educated pt on use of compression hose when upright to help with swelling management and pain management Per TUG and SLS time, pt ok to ambulate inside house without spc but recommended continued use of AD outdoors and in community PT-OP-R Modalities Start: 02/19/24 12:05 Freq: Status: Active Protocol: Document 02/21/24 11:33 NM (Rec: 02/21/24 12:23 NM [id number]) Electric Stimulation Electric Stimulation Malian Intensity 12 Frequency 50 Contraction Type Normal Ramp 2.0 Patient Position Hooklying Comments Performed 5/5 today for better ot confort.Skin assessed before, during prior. Sensation intact. Performed with quad set (towel under knee), quad set (towel under ankle), SAQ (foam roller) PT-OP-T Assessment and Plan Start: 01/10/24 10:30 Freq: Status: Active Protocol: Document 03/12/24 14:35 NM (Rec: 03/12/24 15:43 NM [id number]) Physical Therapy Assessment Goals Five Impairment knee flexion/extension strength 3/5 post-op Intermediate Goal (LTG) Pt will improve L knee flexion and extension strength to at least 4+/5 MMT in order to demonstrate increased strength required for balance, gait, and ADLs 03/12/24: 4-/5 MMT LTG Duration 12 weeks 05/09/24 Four Impairment pain with transfers into car, tub, STS Short Term Goal (STG) Pt will report <3/10 L knee pain with transfers in/out of car or tub in order to demonstrate improvements in L knee AROM and pain management 03/12/24: pt continue to report pain 4/10 with car transfer STG Duration 6 weeks 03/28/24 Software Programmer Goal (LTG) Pt will improve 5x STS time to 12.6 sec or better from standard chair without increase in L knee pain in order to demonstrate improved knee flexion for transfers and BLE strength LTG Duration 12 weeks 05/09/24 Three Impairment not performing HEP Short Term Goal (STG) Pt will be issued HEP and report compliance 2-3x/wk in order to maximize progression with PT 03/12/24: daily compliance STG Duration 3 weeks MET Software Programmer Goal (LTG) Pt will report compliance with HEP 3x/wk in order to transition to maintenance program and maintain progress made during PT LTG Duration 12 weeks 05/09/24 Two Impairment pre-op 6 MWT distance 1094 ft; post op 664 ft w/ spc Short Term Goal (STG) Pt will normalize gait mechanics at least community distances without AD if appropriate in order to demonstrate increased independence with mobility similar to pre-operative mobility 03/12/24: household ambulation with antalgic gait and no AD, limited knee flex STG Duration 5 weeks 03/21/24 PROGRESSING Software Programmer Goal (LTG) Pt will be ambulate >1200 ft ( age-related norm) post op without AD if appropriate in order to demonstrate improved activity tolerance, strength, and ability to return to walks several miles long LTG Duration 12 weeks 05/09/24 One Impairment pre-op L knee ROM 118-8; post op 90-11 deg Short Term Goal (STG) Pt will improve L knee AROM to at least 100 deg flexion and lacking 5 deg extension or less deg in order to improve knee mobility during sitting, gait, and stair 03/12/24: 111 deg flex post manual, lacking 3 deg STG Duration 6 weeks 03/28/24 MET Intermediate Goal (LTG) Pt will improve L knee AROM to at least 120 deg flex and 2 deg extension or less post- operatively in order to improve knee mobility during gait and stairs LTG Duration 12 weeks 05/09/24 Progress Towards Goals Progress Towards Goals Progressing Toward Goals,Slow Progress due to Activity Tolerance,Goals Met Assessment Summary Assessment Pt reports that her knee feels better at end of session but does not provide a pain number . She demos improved TUG time, now 10.6 sec without AD. Initiated gait training without AD; demos decreased L knee flexion but no buckling or unsteadiness in L stance. Challenging to clear hurdles and needs CGA to maintain balance when clips hurdles. Better knee flexion tolerance to knee mobilization in standing and with leg press, although unable to tolerate increased resistance yet. Pt is very adverse to exercise due to fear of pain and has decreased overall activity tolerance; educated on graded exposure and finite time to restore knee ROM post- operatively. Pt would continue to benefit from skilled PT for L knee ROM and strength to improve mobility and activity tolerance for ADLs. Physical Therapy Plan Frequency and Duration Frequency of Treatment 2x/Week Duration of treatment (weeks) 12 Plan of Care Start Date 02/14/24 Plan of Care End Date 05/09/24 Therapeutic Interventions Therapeutic Interventions Balance Training,Gait Training ,Home Exercise Program,Joint Mobilizations,Manual Therapy, Neuromuscular Re-education, Orthotic/Prosthetic Management ,Patient/Caregiver Education, Self-Care/Home Management, Sensory Integration,Soft Tissue Mobilization,Taping, Therapeutic Activities, Therapeutic Exercises Modalities Cold Pack/Ice Massage,Electric Stimulation,Hot Packs, Vasopneumatic Devices Next Visit Focus/Plan Next Note Type Treatment Note Next Visit Plan Condense HEP. Continue swelling mgmt, STM. knee flex joint mobilizations in supine. Normalize gait without AD for household. Leg press, STS, side steps, knee flex ROM. Assess carryover of TKE, Attempt bike again. Begin balance training Progress minisquat to STS (inc reps) > leg press as tolerated and step up. seated hip abduction > standing hip abd in side stepping. Promote normal gait and gradually progress off AD as appropriate . Manual: STM, scar mob, grade I -II jt mob Balance training in stance, hurdles.
--- NOTE | 2024-03-14 16:23 | PT.OTN ---
Current Diagnoses Unilateral primary osteoarthritis, left knee (03/14/24) Stiffness of left knee, not elsewhere classified (03/14/24) Other lack of coordination (03/14/24) Weakness (03/14/24) Physical Therapy Treatment Note PT-OP-A Visit Information Start: 01/10/24 10:30 Freq: Status: Active Protocol: Document 03/14/24 15:07 TS (Rec: 03/14/24 16:23 TS [id number]) Out-Patient Physical Therapy Visit Information Visit Information Visit Type Progress Note Visit Note s/p L TKA 01/11/24 [facility]: [id number] Visit Start Time 15:15 Visit Stop Time 16:00 Visit Number 8 Number of SOFTWARE TECHNICIAN Visits 1 Evaluation Information Evaluation Date 01/10/24 Precautions Precautions DOS L TKA 01/11/24 PMH diabetes II PT-OP-B Current Condition Start: 01/10/24 10:30 Freq: Status: Active Protocol: Document 02/14/24 13:42 NM (Rec: 02/14/24 14:32 NM [id number]) Current Condition History of Current Condition Onset Date DOS 01/11/24 Current Complaints pain, mobility History of Current Condition 02/14/24: Pt now s/p L TKA. PT just had HHPT, reports went well. She has been doing her exercises everyday. Pt reports pain with getting in/out of car, sitting in car, ambulating, stairs. Has been going on walks 1/4 mi a few times, up and moving around house. Pt has been ambulating at home without spc in R hand. States 6/10 L knee pain at rest, 8/10 with movement; states worse at night. Only taking acetominophen for pain, orn takes ocycodone (bed time ). Has been using spc for about 2 weeks. 01/10/24: Pt will be having a L TKA tomorrow 01/10/[address] Rebollar. Pt has had fluid taken off several times, cortisone, hyaluronic acid to help with injections. Pt reports no difficulty with her R knee. She has 3 steps into home, rail on R side to enter; single story home. Pt presents with FWW. She has not been using an AD prior to surgery. Pt lives alone but her daughter lives in the same town; hoping daughter will help. Pt reports that she has aches in the back of her L leg (calf). Pt reports that the walker can fit in her home. She has a shower bar in her shower, none for toilet (low toilet). She is planning to be in hospital overnight. Treatment Goals Patient/Caregiver Goals walking a couple miles/day ( flat), back to yoga (a couple times/wk) PT-OP-C Subjective Start: 01/10/24 10:30 Freq: Status: Active Protocol: Document 03/14/24 15:07 TS (Rec: 03/14/24 16:23 TS [id number]) OP-PT Subjective Patient Comments Patient Comments Pt reports soreness in knee today. She had questions on compression stockings, recommended use during the day . HEP was condensed. PT-OP-D Balance Start: 01/10/24 10:30 Freq: Status: Active Protocol: Document 02/14/24 13:42 NM (Rec: 02/14/24 16:12 NM [id number]) Balance Tests Single Limb Standing Single Limb- Right 4 seconds Single Limb- Left 1 second with pain Tandem Tandem Standing 15 seconds PT-OP-E Functional Tests Start: 01/10/24 10:30 Freq: Status: Active Protocol: Document 02/14/24 13:42 NM (Rec: 02/14/24 14:32 NM [id number]) Functional Tests 6 Minute Walk Test Distance 02/13: 664 ft; 01/09: 1094 ft Device Used 02/13: spc; 01/09: no AD Comments 02/13, 01/09: pain in L knee Five Times Sit to Stand Test Score 02/14/24: 15.37 sec, 01/09: 16. 8 sec Comments painful, LLE more forward PT-OP-F Manual Assessment Start: 01/10/24 10:30 Freq: Status: Active Protocol: Document 02/14/24 13:42 NM (Rec: 02/14/24 15:41 NM [id number]) Manual Assessments Soft Tissue Assessment Soft Tissue Mobility Assessment Tightness of anterior knee over scar. Restrictions of L hamstring and quad, calf Joint Mobility Assessment Joint Mobility Assessment Hypomobility of L knee, pain with knee flexion especially anterior over scar. Tendency for L hip ER as position of comfort PT-OP-G Mobility & Gait Start: 01/10/24 10:30 Freq: Status: Active Protocol: Document 02/14/24 13:42 NM (Rec: 02/14/24 15:41 NM [id number]) OP Mobility Evaluation Transfers Sit to Stand No UE assist from 18 but places LLE more forward than RLE OP Gait Assessment Gait Gait Assistance Required: Standby Assistance Distance (Feet) 664 Assistive Devices Assistive Device Gait Belt,Straight Cane Gait Deviations General Gait Pattern Antalgic Factors Limiting Gait Function Factors Limiting Gait Function Decreased Strength,Pain Comments Gait Comments Tendency for L hip ER with stance and swing if not using spc, then more neutral. Has very stiff L stance, minimal knee flexion even with cueing. Pre-opo: 1094 ft without AD PT-OP-H Neuro Start: 01/10/24 10:30 Freq: Status: Active Protocol: Document 02/14/24 13:42 NM (Rec: 02/14/24 16:12 NM [id number]) Sensation Evaluation Comments Summary Comments Will assess formally next session Increased sensitivity around/ on incision and on either side of L knee PT-OP-J Posture/Palpation/Skin Start: 01/10/24 10:30 Freq: Status: Active Protocol: Document 02/14/24 13:42 NM (Rec: 02/14/24 15:41 NM [id number]) Posture Evaluation Position Standing Head/C-Spine Posture Forward Head T-Spine Posture Increased Kyphosis Shoulder Posture (L) Rounded,(R) Rounded Pelvis Posture Anteriorly Tilted Weight Distribution Weight Shifted Right Hip Posture (R) Neutral,(L) Externally Rotated Knee Posture (L) Genu Valgus,(R) Genu Valgus Palpation Assessment Location L knee Palpation Details Tenderness along medial and lateral knee Increased sensitivity along scar, medial and lateral knee Increased tightness of calf, hamstrings, quads, hip flexores Skin Assessment Incisional Assessment Incision Appearance/Comments Incision intact, pink, clean and dry. No signs of infection or DVT, only reported tenderness of proximal calf. Over incision, leftover adhesive from bandage present PT-OP-K Range of Motion Start: 01/10/24 10:30 Freq: Status: Active Protocol: Document 03/12/24 14:35 NM (Rec: 03/12/24 15:43 NM [id number]) Knee Goniometric Range of Motion Knee Right Flexion Active (degrees) 120 Extension Active (degrees) 2 Left Flexion Active (degrees) 105 Extension Active (degrees) 3 Comments Pre-operative: 118 deg knee flexion, lacking 8 deg extension; Post op: 90 deg flex, lacking 11 deg ext 03/12/24: 105 deg flex start of session (111 post manual) and lacking 3 deg extension PT-OP-M Strength Start: 01/10/24 10:30 Freq: Status: Active Protocol: Document 03/12/24 14:35 NM (Rec: 03/12/24 15:43 NM [id number]) Knee Strength Knee Manual Muscle Testing Right Flexion (S2) 4 Good Extension (L3) 4 Good Left Flexion (S2) 4- Good- Extension (L3) 4- Good- Comments 01/09 pre-operative: 3+/5 post-op: 3/5 03/12/24: 4-/5 PT-OP-Q Treatments Start: 01/10/24 10:30 Freq: Status: Active Protocol: Document 03/14/24 15:07 TS (Rec: 03/14/24 16:23 TS [id number]) Cardio Equipment Recumbent Bicycle Duration (Minutes) 4 Resistance 3 Seat Position 3 Other Pt reports some pn, 2/10 Therapeutic Exercises Supine Exercises SLR Side left Reps/Minutes 10 Sitting Exercises STS Reps/Minutes x4 Comments throughout session LAQ Sitting Exercise Name HEP Side left Resistance AROM Reps/Minutes x10 Comments cued no lean backward, good activation Standing Exercises knee flexion Standing Exercise Name 1. mobilization, 2. step taps HEP Side left Reps/Minutes 5x10 Gait Training Gait Activity normalized mechanics Device Used none Level of Assistance close SBA Surface stable Distance/Duration 2 mins Treatment Focus knee flexion, normalized mechanics Comments Pt ext rotates hip. Cues for heel strike and toe off. Pt demonstrates slight circumduction gait at times. hurdles Device Used no AD, prn hand support for balance Level of Assistance close SBA with prn CGA to steady Distance/Duration 3 hurdles Treatment Focus knee flexion, heel strike Comments 1. B feet btwn hurdles 2. reciprocal pattern 3. Sidestepping Good L stance, L knee flexion challenging. Maintains heel strike. reuqires use of cane for balance. Manual Therapy Treatment Soft Tissue Mobilization L knee Body Location scar mobilization, swelling mgmt, quad, HS, calf Mobilization Type Rolling,Strumming Intensity/Depth Superficial Body Position Hooklying Comments Performed distal > proximal. Tenderness to scar. Tenderness along medial patella and medial knee. Educated on progression with rougher fabrics on ant scar Joint Mobilizations L knee Joint patellar, tibiofemoral Direction inf/sup, med/lat; PA/AP w/ inf glide and slight distract Comments grade I patellar mob for pain management, 2x10 ea grade II tibiofemoral Monitored for pain PT-OP-R Modalities Start: 02/19/24 12:05 Freq: Status: Active Protocol: Document 02/21/24 11:33 NM (Rec: 02/21/24 12:23 NM [id number]) Electric Stimulation Electric Stimulation [place] Intensity 12 Frequency 50 Contraction Type Normal Ramp 2.0 Patient Position Hooklying Comments Performed 5/5 today for better ot confort.Skin assessed before, during prior. Sensation intact. Performed with quad set (towel under knee), quad set (towel under ankle), SAQ (foam roller) PT-OP-T Assessment and Plan Start: 01/10/24 10:30 Freq: Status: Active Protocol: Document 03/14/24 15:07 TS (Rec: 03/14/24 16:23 TS [id number]) Physical Therapy Assessment Goals Five Impairment knee flexion/extension strength 3/5 post-op Maintenance Mechanic Supervisor Goal (LTG) Pt will improve L knee flexion and extension strength to at least 4+/5 MMT in order to demonstrate increased strength required for balance, gait, and ADLs 03/12/24: 4-/5 MMT LTG Duration 12 weeks 05/09/24 Four Impairment pain with transfers into car, tub, STS Short Term Goal (STG) Pt will report <3/10 L knee pain with transfers in/out of car or tub in order to demonstrate improvements in L knee AROM and pain management 03/12/24: pt continue to report pain 4/10 with car transfer STG Duration 6 weeks 03/28/24 Maintenance Mechanic Supervisor Goal (LTG) Pt will improve 5x STS time to 12.6 sec or better from standard chair without increase in L knee pain in order to demonstrate improved knee flexion for transfers and BLE strength LTG Duration 12 weeks 05/09/24 Three Impairment not performing HEP Short Term Goal (STG) Pt will be issued HEP and report compliance 2-3x/wk in order to maximize progression with PT 03/12/24: daily compliance STG Duration 3 weeks MET Maintenance Mechanic Supervisor Goal (LTG) Pt will report compliance with HEP 3x/wk in order to transition to maintenance program and maintain progress made during PT LTG Duration 12 weeks 05/09/24 Two Impairment pre-op 6 MWT distance 1094 ft; post op 664 ft w/ spc Short Term Goal (STG) Pt will normalize gait mechanics at least community distances without AD if appropriate in order to demonstrate increased independence with mobility similar to pre-operative mobility 03/12/24: household ambulation with antalgic gait and no AD, limited knee flex STG Duration 5 weeks 03/21/24 PROGRESSING Skilled Nursing Goal (LTG) Pt will be ambulate >1200 ft ( age-related norm) post op without AD if appropriate in order to demonstrate improved activity tolerance, strength, and ability to return to walks several miles long LTG Duration 12 weeks 05/09/24 One Impairment pre-op L knee ROM 118-8; post op 90-11 deg Short Term Goal (STG) Pt will improve L knee AROM to at least 100 deg flexion and lacking 5 deg extension or less deg in order to improve knee mobility during sitting, gait, and stair 03/12/24: 111 deg flex post manual, lacking 3 deg STG Duration 6 weeks 03/28/24 MET Maintenance Mechanic Supervisor Goal (LTG) Pt will improve L knee AROM to at least 120 deg flex and 2 deg extension or less post- operatively in order to improve knee mobility during gait and stairs LTG Duration 12 weeks 05/09/24 Assessment Summary Assessment Pt continues to report soreness in medial knee during manual therapy and ther-ex. Pt has increased ROM and decreased stiffness with use of recumbent bike this session . Her HEP was condensed. Msoes height is challenging for pt, she required use of cane and rail for balance. Physical Therapy Plan Next Visit Focus/Plan Next Note Type Treatment Note Next Visit Plan Continue manual for swelling and joint mobs, recumbent bike , steps, normalizing gait with no AD.
--- NOTE | 2024-03-18 16:49 | PT.OTN ---
Current Diagnoses Unilateral primary osteoarthritis, left knee (03/18/24) Stiffness of left knee, not elsewhere classified (03/18/24) Other lack of coordination (03/18/24) Weakness (03/18/24) Physical Therapy Treatment Note PT-OP-A Visit Information Start: 01/10/24 10:30 Freq: Status: Active Protocol: Document 03/18/24 13:39 TS (Rec: 03/18/24 16:47 TS [id number]) Out-Patient Physical Therapy Visit Information Visit Information Visit Type Treatment Note Visit Note s/p L TKA 01/11/24 [facility]: [id number] Visit Start Time 13:35 Visit Stop Time 14:15 Visit Number 9 Number of SENIOR AIR DIRECTOR Visits 2 Evaluation Information Evaluation Date 01/10/24 Precautions Precautions DOS L TKA 01/11/24 PMH diabetes II PT-OP-B Current Condition Start: 01/10/24 10:30 Freq: Status: Active Protocol: Document 02/14/24 13:42 NM (Rec: 02/14/24 14:32 NM [id number]) Current Condition History of Current Condition Onset Date DOS 01/11/24 Current Complaints pain, mobility History of Current Condition 02/14/24: Pt now s/p L TKA. PT just had HHPT, reports went well. She has been doing her exercises everyday. Pt reports pain with getting in/out of car, sitting in car, ambulating, stairs. Has been going on walks 1/4 mi a few times, up and moving around house. Pt has been ambulating at home without spc in R hand. States 6/10 L knee pain at rest, 8/10 with movement; states worse at night. Only taking acetominophen for pain, orn takes ocycodone (bed time ). Has been using spc for about 2 weeks. 01/10/24: Pt will be having a L TKA tomorrow 01/10/[address] Rebollar. Pt has had fluid taken off several times, cortisone, hyaluronic acid to help with injections. Pt reports no difficulty with her R knee. She has 3 steps into home, rail on R side to enter; single story home. Pt presents with FWW. She has not been using an AD prior to surgery. Pt lives alone but her daughter lives in the same town; hoping daughter will help. Pt reports that she has aches in the back of her L leg (calf). Pt reports that the walker can fit in her home. She has a shower bar in her shower, none for toilet (low toilet). She is planning to be in hospital overnight. Treatment Goals Patient/Caregiver Goals walking a couple miles/day ( flat), back to yoga (a couple times/wk) PT-OP-C Subjective Start: 01/10/24 10:30 Freq: Status: Active Protocol: Document 03/18/24 13:39 TS (Rec: 03/18/24 16:47 TS [id number]) OP-PT Subjective Patient Comments Patient Comments Pt brings in compression sleeve. Continues to report stiffness/soreness and L knee does buckle at times. PT-OP-D Balance Start: 01/10/24 10:30 Freq: Status: Active Protocol: Document 02/14/24 13:42 NM (Rec: 02/14/24 16:12 NM [id number]) Balance Tests Single Limb Standing Single Limb- Right 4 seconds Single Limb- Left 1 second with pain Tandem Tandem Standing 15 seconds PT-OP-E Functional Tests Start: 01/10/24 10:30 Freq: Status: Active Protocol: Document 02/14/24 13:42 NM (Rec: 02/14/24 14:32 NM [id number]) Functional Tests 6 Minute Walk Test Distance 02/13: 664 ft; 01/09: 1094 ft Device Used 02/13: spc; 01/09: no AD Comments 02/13, 01/09: pain in L knee Five Times Sit to Stand Test Score 02/14/24: 15.37 sec, 01/09: 16. 8 sec Comments painful, LLE more forward PT-OP-F Manual Assessment Start: 01/10/24 10:30 Freq: Status: Active Protocol: Document 02/14/24 13:42 NM (Rec: 02/14/24 15:41 NM [id number]) Manual Assessments Soft Tissue Assessment Soft Tissue Mobility Assessment Tightness of anterior knee over scar. Restrictions of L hamstring and quad, calf Joint Mobility Assessment Joint Mobility Assessment Hypomobility of L knee, pain with knee flexion especially anterior over scar. Tendency for L hip ER as position of comfort PT-OP-G Mobility & Gait Start: 01/10/24 10:30 Freq: Status: Active Protocol: Document 02/14/24 13:42 NM (Rec: 02/14/24 15:41 NM [id number]) OP Mobility Evaluation Transfers Sit to Stand No UE assist from 18 but places LLE more forward than RLE OP Gait Assessment Gait Gait Assistance Required: Standby Assistance Distance (Feet) 664 Assistive Devices Assistive Device Gait Belt,Straight Cane Gait Deviations General Gait Pattern Antalgic Factors Limiting Gait Function Factors Limiting Gait Function Decreased Strength,Pain Comments Gait Comments Tendency for L hip ER with stance and swing if not using spc, then more neutral. Has very stiff L stance, minimal knee flexion even with cueing. Pre-opo: 1094 ft without AD PT-OP-H Neuro Start: 01/10/24 10:30 Freq: Status: Active Protocol: Document 02/14/24 13:42 NM (Rec: 02/14/24 16:12 NM [id number]) Sensation Evaluation Comments Summary Comments Will assess formally next session Increased sensitivity around/ on incision and on either side of L knee PT-OP-J Posture/Palpation/Skin Start: 01/10/24 10:30 Freq: Status: Active Protocol: Document 02/14/24 13:42 NM (Rec: 02/14/24 15:41 NM [id number]) Posture Evaluation Position Standing Head/C-Spine Posture Forward Head T-Spine Posture Increased Kyphosis Shoulder Posture (L) Rounded,(R) Rounded Pelvis Posture Anteriorly Tilted Weight Distribution Weight Shifted Right Hip Posture (R) Neutral,(L) Externally Rotated Knee Posture (L) Genu Valgus,(R) Genu Valgus Palpation Assessment Location L knee Palpation Details Tenderness along medial and lateral knee Increased sensitivity along scar, medial and lateral knee Increased tightness of calf, hamstrings, quads, hip flexores Skin Assessment Incisional Assessment Incision Appearance/Comments Incision intact, pink, clean and dry. No signs of infection or DVT, only reported tenderness of proximal calf. Over incision, leftover adhesive from bandage present PT-OP-K Range of Motion Start: 01/10/24 10:30 Freq: Status: Active Protocol: Document 03/12/24 14:35 NM (Rec: 03/12/24 15:43 NM [id number]) Knee Goniometric Range of Motion Knee Right Flexion Active (degrees) 120 Extension Active (degrees) 2 Left Flexion Active (degrees) 105 Extension Active (degrees) 3 Comments Pre-operative: 118 deg knee flexion, lacking 8 deg extension; Post op: 90 deg flex, lacking 11 deg ext 03/12/24: 105 deg flex start of session (111 post manual) and lacking 3 deg extension PT-OP-M Strength Start: 01/10/24 10:30 Freq: Status: Active Protocol: Document 03/12/24 14:35 NM (Rec: 03/12/24 15:43 NM [id number]) Knee Strength Knee Manual Muscle Testing Right Flexion (S2) 4 Good Extension (L3) 4 Good Left Flexion (S2) 4- Good- Extension (L3) 4- Good- Comments 01/09 pre-operative: 3+/5 post-op: 3/5 03/12/24: 4-/5 PT-OP-Q Treatments Start: 01/10/24 10:30 Freq: Status: Active Protocol: Document 03/18/24 13:39 TS (Rec: 03/18/24 16:47 TS [id number]) Therapeutic Exercises Sitting Exercises STS Reps/Minutes x5 Comments throughout session knee flexion w/slider Reps/Minutes x10 with 3 hold LAQ Sitting Exercise Name HEP Side left Resistance AROM Reps/Minutes x10 Comments cued no lean backward, good activation Standing Exercises knee flexion Standing Exercise Name 1. mobilization, 2. step taps HEP Side left Reps/Minutes 5x10 mini-squat Standing Exercise Name to chair Side bilateral Equipment Used B hand support on bar, Reps/Minutes x10 3 hold Manual Therapy Treatment Soft Tissue Mobilization L knee Body Location scar mobilization, swelling mgmt, quad, HS, calf Mobilization Type Rolling,Strumming Intensity/Depth Superficial Body Position Hooklying Comments Performed distal > proximal. Tenderness to scar. Tenderness along medial patella and medial knee. Educated on progression with rougher fabrics on ant scar Joint Mobilizations L knee Joint patellar, tibiofemoral Direction inf/sup, med/lat; PA/AP w/ inf glide and slight distract Comments grade I patellar mob for pain management, 2x10 ea grade II tibiofemoral Monitored for pain PT-OP-R Modalities Start: 02/19/24 12:05 Freq: Status: Active Protocol: Document 02/21/24 11:33 NM (Rec: 02/21/24 12:23 NM [id number]) Electric Stimulation Electric Stimulation [place] Intensity 12 Frequency 50 Contraction Type Normal Ramp 2.0 Patient Position Hooklying Comments Performed 5/5 today for better ot confort.Skin assessed before, during prior. Sensation intact. Performed with quad set (towel under knee), quad set (towel under ankle), SAQ (foam roller) PT-OP-T Assessment and Plan Start: 01/10/24 10:30 Freq: Status: Active Protocol: Document 03/18/24 13:39 TS (Rec: 03/18/24 16:47 TS [id number]) Physical Therapy Assessment Goals Five Impairment knee flexion/extension strength 3/5 post-op Community Engagement Representative Goal (LTG) Pt will improve L knee flexion and extension strength to at least 4+/5 MMT in order to demonstrate increased strength required for balance, gait, and ADLs 03/12/24: 4-/5 MMT LTG Duration 12 weeks 05/09/24 Four Impairment pain with transfers into car, tub, STS Short Term Goal (STG) Pt will report <3/10 L knee pain with transfers in/out of car or tub in order to demonstrate improvements in L knee AROM and pain management 03/12/24: pt continue to report pain 4/10 with car transfer STG Duration 6 weeks 03/28/24 Community Engagement Representative Goal (LTG) Pt will improve 5x STS time to 12.6 sec or better from standard chair without increase in L knee pain in order to demonstrate improved knee flexion for transfers and BLE strength LTG Duration 12 weeks 05/09/24 Three Impairment not performing HEP Short Term Goal (STG) Pt will be issued HEP and report compliance 2-3x/wk in order to maximize progression with PT 03/12/24: daily compliance STG Duration 3 weeks MET Community Engagement Representative Goal (LTG) Pt will report compliance with HEP 3x/wk in order to transition to maintenance program and maintain progress made during PT LTG Duration 12 weeks 05/09/24 Two Impairment pre-op 6 MWT distance 1094 ft; post op 664 ft w/ spc Short Term Goal (STG) Pt will normalize gait mechanics at least community distances without AD if appropriate in order to demonstrate increased independence with mobility similar to pre-operative mobility 03/12/24: household ambulation with antalgic gait and no AD, limited knee flex STG Duration 5 weeks 03/21/24 PROGRESSING Community Engagement Representative Goal (LTG) Pt will be ambulate >1200 ft ( age-related norm) post op without AD if appropriate in order to demonstrate improved activity tolerance, strength, and ability to return to walks several miles long LTG Duration 12 weeks 05/09/24 One Impairment pre-op L knee ROM 118-8; post op 90-11 deg Short Term Goal (STG) Pt will improve L knee AROM to at least 100 deg flexion and lacking 5 deg extension or less deg in order to improve knee mobility during sitting, gait, and stair 03/12/24: 111 deg flex post manual, lacking 3 deg STG Duration 6 weeks 03/28/24 MET Community Engagement Representative Goal (LTG) Pt will improve L knee AROM to at least 120 deg flex and 2 deg extension or less post- operatively in order to improve knee mobility during gait and stairs LTG Duration 12 weeks 05/09/24 Assessment Summary Assessment Pt quickly has fatigue and soreness with ther-ex today. Pattella has more lateral movement and decreased soreness/stiffness with manual therapy. Pt reports recumbent bike helps with stiffness in knee. Pt reports buckling of L knee when walking at home. Provided education on continued strengthening of L quad and act when ambulating. Physical Therapy Plan Next Visit Focus/Plan Next Note Type Treatment Note Next Visit Plan Continue L knee ext strengthening. Continue manual for swelling and joint mobs, recumbent bike, steps, normalizing gait with no AD.
--- NOTE | 2024-03-25 15:50 | PT.OTN ---
Current Diagnoses Unilateral primary osteoarthritis, left knee (03/25/24) Stiffness of left knee, not elsewhere classified (03/25/24) Other lack of coordination (03/25/24) Weakness (03/25/24) Physical Therapy Treatment Note PT-OP-A Visit Information Start: 01/10/24 10:30 Freq: Status: Active Protocol: Document 03/25/24 13:44 TS (Rec: 03/25/24 15:50 TS [id number]) Out-Patient Physical Therapy Visit Information Visit Information Visit Type Treatment Note Visit Note s/p L TKA 01/11/24 [facility]: [id number] Visit Start Time 13:45 Visit Stop Time 14:25 Visit Number 10 Number of TIMBER ESTIMATOR Visits 3 PT-OP-B Current Condition Start: 01/10/24 10:30 Freq: Status: Active Protocol: Document 02/14/24 13:42 NM (Rec: 02/14/24 14:32 NM [id number]) Current Condition History of Current Condition Onset Date DOS 01/11/24 Current Complaints pain, mobility History of Current Condition 02/14/24: Pt now s/p L TKA. PT just had HHPT, reports went well. She has been doing her exercises everyday. Pt reports pain with getting in/out of car, sitting in car, ambulating, stairs. Has been going on walks 1/4 mi a few times, up and moving around house. Pt has been ambulating at home without spc in R hand. States 6/10 L knee pain at rest, 8/10 with movement; states worse at night. Only taking acetominophen for pain, orn takes ocycodone (bed time ). Has been using spc for about 2 weeks. 01/10/24: Pt will be having a L TKA tomorrow 01/10/[address] Rebollar. Pt has had fluid taken off several times, cortisone, hyaluronic acid to help with injections. Pt reports no difficulty with her R knee. She has 3 steps into home, rail on R side to enter; single story home. Pt presents with FWW. She has not been using an AD prior to surgery. Pt lives alone but her daughter lives in the same town; hoping daughter will help. Pt reports that she has aches in the back of her L leg (calf). Pt reports that the walker can fit in her home. She has a shower bar in her shower, none for toilet (low toilet). She is planning to be in hospital overnight. Treatment Goals Patient/Caregiver Goals walking a couple miles/day ( flat), back to yoga (a couple times/wk) PT-OP-C Subjective Start: 01/10/24 10:30 Freq: Status: Active Protocol: Document 03/25/24 13:44 TS (Rec: 03/25/24 15:50 TS [id number]) OP-PT Subjective Patient Comments Patient Comments Pt reports increase in pain when sitting in chair/car for no longer than 15 mins. She got some CBD lotion for pain, doesn't seem to be helping much. She is compliant with her HEP and has using recumbent bike PT-OP-D Balance Start: 01/10/24 10:30 Freq: Status: Active Protocol: Document 02/14/24 13:42 NM (Rec: 02/14/24 16:12 NM [id number]) Balance Tests Single Limb Standing Single Limb- Right 4 seconds Single Limb- Left 1 second with pain Tandem Tandem Standing 15 seconds PT-OP-E Functional Tests Start: 01/10/24 10:30 Freq: Status: Active Protocol: Document 02/14/24 13:42 NM (Rec: 02/14/24 14:32 NM [id number]) Functional Tests 6 Minute Walk Test Distance 02/13: 664 ft; 01/09: 1094 ft Device Used 02/13: spc; 01/09: no AD Comments 02/13, 01/09: pain in L knee Five Times Sit to Stand Test Score 02/14/24: 15.37 sec, 01/09: 16. 8 sec Comments painful, LLE more forward PT-OP-F Manual Assessment Start: 01/10/24 10:30 Freq: Status: Active Protocol: Document 02/14/24 13:42 NM (Rec: 02/14/24 15:41 NM [id number]) Manual Assessments Soft Tissue Assessment Soft Tissue Mobility Assessment Tightness of anterior knee over scar. Restrictions of L hamstring and quad, calf Joint Mobility Assessment Joint Mobility Assessment Hypomobility of L knee, pain with knee flexion especially anterior over scar. Tendency for L hip ER as position of comfort PT-OP-G Mobility & Gait Start: 01/10/24 10:30 Freq: Status: Active Protocol: Document 02/14/24 13:42 NM (Rec: 02/14/24 15:41 NM [id number]) OP Mobility Evaluation Transfers Sit to Stand No UE assist from 18 but [address] LLE more forward than RLE OP Gait Assessment Gait Gait Assistance Required: Standby Assistance Distance (Feet) 664 Assistive Devices Assistive Device Gait Belt,Straight Cane Gait Deviations General Gait Pattern Antalgic Factors Limiting Gait Function Factors Limiting Gait Function Decreased Strength,Pain Comments Gait Comments Tendency for L hip ER with stance and swing if not using spc, then more neutral. Has very stiff L stance, minimal knee flexion even with cueing. Pre-opo: 1094 ft without AD PT-OP-H Neuro Start: 01/10/24 10:30 Freq: Status: Active Protocol: Document 02/14/24 13:42 NM (Rec: 02/14/24 16:12 NM [id number]) Sensation Evaluation Comments Summary Comments Will assess formally next session Increased sensitivity around/ on incision and on either side of L knee PT-OP-J Posture/Palpation/Skin Start: 01/10/24 10:30 Freq: Status: Active Protocol: Document 02/14/24 13:42 NM (Rec: 02/14/24 15:41 NM [id number]) Posture Evaluation Position Standing Head/C-Spine Posture Forward Head T-Spine Posture Increased Kyphosis Shoulder Posture (L) Rounded,(R) Rounded Pelvis Posture Anteriorly Tilted Weight Distribution Weight Shifted Right Hip Posture (R) Neutral,(L) Externally Rotated Knee Posture (L) Genu Valgus,(R) Genu Valgus Palpation Assessment Location L knee Palpation Details Tenderness along medial and lateral knee Increased sensitivity along scar, medial and lateral knee Increased tightness of calf, hamstrings, quads, hip flexores Skin Assessment Incisional Assessment Incision Appearance/Comments Incision intact, pink, clean and dry. No signs of infection or DVT, only reported tenderness of proximal calf. Over incision, leftover adhesive from bandage present PT-OP-K Range of Motion Start: 01/10/24 10:30 Freq: Status: Active Protocol: Document 03/12/24 14:35 NM (Rec: 03/12/24 15:43 NM [id number]) Knee Goniometric Range of Motion Knee Right Flexion Active (degrees) 120 Extension Active (degrees) 2 Left Flexion Active (degrees) 105 Extension Active (degrees) 3 Comments Pre-operative: 118 deg knee flexion, lacking 8 deg extension; Post op: 90 deg flex, lacking 11 deg ext 03/12/24: 105 deg flex start of session (111 post manual) and lacking 3 deg extension PT-OP-M Strength Start: 01/10/24 10:30 Freq: Status: Active Protocol: Document 03/12/24 14:35 NM (Rec: 03/12/24 15:43 NM [id number]) Knee Strength Knee Manual Muscle Testing Right Flexion (S2) 4 Good Extension (L3) 4 Good Left Flexion (S2) 4- Good- Extension (L3) 4- Good- Comments 01/09 pre-operative: 3+/5 post-op: 3/5 03/12/24: 4-/5 PT-OP-Q Treatments Start: 01/10/24 10:30 Freq: Status: Active Protocol: Document 03/25/24 13:44 TS (Rec: 03/25/24 15:50 TS [id number]) Cardio Equipment Recumbent Bicycle Duration (Minutes) 7 Resistance 3 Seat Position 3 Other Pr reports decreased stiffness and pain with use of bike Therapeutic Exercises Sitting Exercises LAQ Sitting Exercise Name HEP Side left Resistance AROM Equipment Used 2# Reps/Minutes x10 Comments cued no lean backward, good activation Standing Exercises knee flexion Standing Exercise Name Knee flex on step Side left Reps/Minutes 5x10 Manual Therapy Treatment Soft Tissue Mobilization L knee Body Location scar mobilization, swelling mgmt, quad, HS, calf Mobilization Type Rolling,Strumming Intensity/Depth Superficial Body Position Hooklying Comments Pt continues to report pain in medial knee. Tenderness in scar improving. Distal quad very tight. Joint Mobilizations L knee Joint patellar, tibiofemoral Direction inf/sup, med/lat; PA/AP w/ inf glide and slight distract Comments 2x10 ea grade II tibiofemoral Monitored for pain PT-OP-R Modalities Start: 02/19/24 12:05 Freq: Status: Active Protocol: Document 02/21/24 11:33 NM (Rec: 02/21/24 12:23 NM [id number]) Electric Stimulation Electric Stimulation [place] Intensity 12 Frequency 50 Contraction Type Normal Ramp 2.0 Patient Position Hooklying Comments Performed 5/5 today for better ot confort.Skin assessed before, during prior. Sensation intact. Performed with quad set (towel under knee), quad set (towel under ankle), SAQ (foam roller) PT-OP-T Assessment and Plan Start: 01/10/24 10:30 Freq: Status: Active Protocol: Document 03/25/24 13:44 TS (Rec: 03/25/24 15:50 TS [id number]) Physical Therapy Assessment Goals Five Impairment knee flexion/extension strength 3/5 post-op Claims Adjuster Crop Goal (LTG) Pt will improve L knee flexion and extension strength to at least 4+/5 MMT in order to demonstrate increased strength required for balance, gait, and ADLs 03/12/24: 4-/5 MMT LTG Duration 12 weeks 05/09/24 Four Impairment pain with transfers into car, tub, STS Short Term Goal (STG) Pt will report <3/10 L knee pain with transfers in/out of car or tub in order to demonstrate improvements in L knee AROM and pain management 03/12/24: pt continue to report pain 4/10 with car transfer 03/25/2024 pt reports pain can get up to an 8/10. STG Duration 6 weeks 03/28/24 [facility]fp Goal (LTG) Pt will improve 5x STS time to 12.6 sec or better from standard chair without increase in L knee pain in order to demonstrate improved knee flexion for transfers and BLE strength 03/25/24: 13.1 secs, has on pain or increase in pain. LTG Duration 12 weeks 05/09/24 Three Impairment not performing HEP Short Term Goal (STG) Pt will be issued HEP and report compliance 2-3x/wk in order to maximize progression with PT 03/12/24: daily compliance STG Duration 3 weeks MET [facility]fp Goal (LTG) Pt will report compliance with HEP 3x/wk in order to transition to maintenance program and maintain progress made during PT LTG Duration 12 weeks 05/09/24 Two Impairment pre-op 6 MWT distance 1094 ft; post op 664 ft w/ spc Short Term Goal (STG) Pt will normalize gait mechanics at least community distances without AD if appropriate in order to demonstrate increased independence with mobility similar to pre-operative mobility 03/12/24: household ambulation with antalgic gait and no AD, limited knee flex STG Duration 5 weeks 03/21/24 PROGRESSING Mcfp Goal (LTG) Pt will be ambulate >1200 ft ( age-related norm) post op without AD if appropriate in order to demonstrate improved activity tolerance, strength, and ability to return to walks several miles long LTG Duration 12 weeks 05/09/24 One Impairment pre-op L knee ROM 118-8; post op 90-11 deg Short Term Goal (STG) Pt will improve L knee AROM to at least 100 deg flexion and lacking 5 deg extension or less deg in order to improve knee mobility during sitting, gait, and stair 03/12/24: 111 deg flex post manual, lacking 3 deg 03/25:110 flex post bike, 3 deg post bike. STG Duration 6 weeks 03/28/24 MET [facility] Goal (LTG) Pt will improve L knee AROM to at least 120 deg flex and 2 deg extension or less post- operatively in order to improve knee mobility during gait and stairs LTG Duration 12 weeks 05/09/24 Assessment Summary Assessment Pt reports pain can increase to 8/10 when riding in car. Pt presents with more pain today . Recumbent bike improves discomfort and stiffness in knee. Pt continues to lack ~3 deg of knee ext and has 110 deg of flexion post use of bike. Pt performed x5STS in 13 .1 secs with no pain. Physical Therapy Plan Next Visit Focus/Plan Next Note Type Treatment Note Next Visit Plan Continue L knee ext ex, pt continues to report knee feels like it will buckle. Recumbent bike for decreased stiffness and discomfort. Swelling managment.
--- NOTE | 2024-03-28 15:47 | PT.OTN ---
Current Diagnoses Unilateral primary osteoarthritis, left knee (03/28/24) Stiffness of left knee, not elsewhere classified (03/28/24) Other lack of coordination (03/28/24) Weakness (03/28/24) Physical Therapy Treatment Note PT-OP-A Visit Information Start: 01/10/24 10:30 Freq: Status: Active Protocol: Document 03/28/24 13:48 NM (Rec: 03/28/24 14:32 NM [id number]) Out-Patient Physical Therapy Visit Information Visit Information Visit Type Treatment Note Visit Note s/p L TKA 01/11/24 Visit Start Time 13:48 Visit Stop Time 14:30 Visit Number 11 Precautions Precautions DOS L TKA 01/11/24 PMH diabetes II PT-OP-B Current Condition Start: 01/10/24 10:30 Freq: Status: Active Protocol: Document 02/14/24 13:42 NM (Rec: 02/14/24 14:32 NM [id number]) Current Condition History of Current Condition Onset Date DOS 01/11/24 Current Complaints pain, mobility History of Current Condition 02/14/24: Pt now s/p L TKA. PT just had HHPT, reports went well. She has been doing her exercises everyday. Pt reports pain with getting in/out of car, sitting in car, ambulating, stairs. Has been going on walks 1/4 mi a few times, up and moving around house. Pt has been ambulating at home without spc in R hand. States 6/10 L knee pain at rest, 8/10 with movement; states worse at night. Only taking acetominophen for pain, orn takes ocycodone (bed time ). Has been using spc for about 2 weeks. 01/10/24: Pt will be having a L TKA tomorrow 01/10/[address] Rebollar. Pt has had fluid taken off several times, cortisone, hyaluronic acid to help with injections. Pt reports no difficulty with her R knee. She has 3 steps into home, rail on R side to enter; single story home. Pt presents with FWW. She has not been using an AD prior to surgery. Pt lives alone but her daughter lives in the same town; hoping daughter will help. Pt reports that she has aches in the back of her L leg (calf). Pt reports that the walker can fit in her home. She has a shower bar in her shower, none for toilet (low toilet). She is planning to be in hospital overnight. Treatment Goals Patient/Caregiver Goals walking a couple miles/day ( flat), back to yoga (a couple times/wk) PT-OP-C Subjective Start: 01/10/24 10:30 Freq: Status: Active Protocol: Document 03/28/24 13:48 NM (Rec: 03/28/24 14:32 NM [id number]) OP-PT Subjective Patient Comments Patient Comments Pt reports that her knee is buckling, wanting to d/c cane. [place] been using recumbent bike 10 min/day, has been walking. Hardest is step ups. PT-OP-D Balance Start: 01/10/24 10:30 Freq: Status: Active Protocol: Document 02/14/24 13:42 NM (Rec: 02/14/24 16:12 NM [id number]) Balance Tests Single Limb Standing Single Limb- Right 4 seconds Single Limb- Left 1 second with pain Tandem Tandem Standing 15 seconds PT-OP-E Functional Tests Start: 01/10/24 10:30 Freq: Status: Active Protocol: Document 02/14/24 13:42 NM (Rec: 02/14/24 14:32 NM [id number]) Functional Tests 6 Minute Walk Test Distance 02/13: 664 ft; 01/09: 1094 ft Device Used 02/13: spc; 01/09: no AD Comments 02/13, 01/09: pain in L knee Five Times Sit to Stand Test Score 02/14/24: 15.37 sec, 01/09: 16. 8 sec Comments painful, LLE more forward PT-OP-F Manual Assessment Start: 01/10/24 10:30 Freq: Status: Active Protocol: Document 02/14/24 13:42 NM (Rec: 02/14/24 15:41 NM [id number]) Manual Assessments Soft Tissue Assessment Soft Tissue Mobility Assessment Tightness of anterior knee over scar. Restrictions of L hamstring and quad, calf Joint Mobility Assessment Joint Mobility Assessment Hypomobility of L knee, pain with knee flexion especially anterior over scar. Tendency for L hip ER as position of comfort PT-OP-G Mobility & Gait Start: 01/10/24 10:30 Freq: Status: Active Protocol: Document 02/14/24 13:42 NM (Rec: 02/14/24 15:41 NM [id number]) OP Mobility Evaluation Transfers Sit to Stand No UE assist from 18 but places LLE more forward than RLE OP Gait Assessment Gait Gait Assistance Required: Standby Assistance Distance (Feet) 664 Assistive Devices Assistive Device Gait Belt,Straight Cane Gait Deviations General Gait Pattern Antalgic Factors Limiting Gait Function Factors Limiting Gait Function Decreased Strength,Pain Comments Gait Comments Tendency for L hip ER with stance and swing if not using spc, then more neutral. Has very stiff L stance, minimal knee flexion even with cueing. Pre-opo: 1094 ft without AD PT-OP-H Neuro Start: 01/10/24 10:30 Freq: Status: Active Protocol: Document 02/14/24 13:42 NM (Rec: 02/14/24 16:12 NM [id number]) Sensation Evaluation Comments Summary Comments Will assess formally next session Increased sensitivity around/ on incision and on either side of L knee PT-OP-J Posture/Palpation/Skin Start: 01/10/24 10:30 Freq: Status: Active Protocol: Document 02/14/24 13:42 NM (Rec: 02/14/24 15:41 NM [id number]) Posture Evaluation Position Standing Head/C-Spine Posture Forward Head T-Spine Posture Increased Kyphosis Shoulder Posture (L) Rounded,(R) Rounded Pelvis Posture Anteriorly Tilted Weight Distribution Weight Shifted Right Hip Posture (R) Neutral,(L) Externally Rotated Knee Posture (L) Genu Valgus,(R) Genu Valgus Palpation Assessment Location L knee Palpation Details Tenderness along medial and lateral knee Increased sensitivity along scar, medial and lateral knee Increased tightness of calf, hamstrings, quads, hip flexores Skin Assessment Incisional Assessment Incision Appearance/Comments Incision intact, pink, clean and dry. No signs of infection or DVT, only reported tenderness of proximal calf. Over incision, leftover adhesive from bandage present PT-OP-K Range of Motion Start: 01/10/24 10:30 Freq: Status: Active Protocol: Document 03/12/24 14:35 NM (Rec: 03/12/24 15:43 NM [id number]) Knee Goniometric Range of Motion Knee Right Flexion Active (degrees) 120 Extension Active (degrees) 2 Left Flexion Active (degrees) 105 Extension Active (degrees) 3 Comments Pre-operative: 118 deg knee flexion, lacking 8 deg extension; Post op: 90 deg flex, lacking 11 deg ext 03/12/24: 105 deg flex start of session (111 post manual) and lacking 3 deg extension PT-OP-M Strength Start: 01/10/24 10:30 Freq: Status: Active Protocol: Document 03/12/24 14:35 NM (Rec: 03/12/24 15:43 NM [id number]) Knee Strength Knee Manual Muscle Testing Right Flexion (S2) 4 Good Extension (L3) 4 Good Left Flexion (S2) 4- Good- Extension (L3) 4- Good- Comments 01/09 pre-operative: 3+/5 post-op: 3/5 03/12/24: 4-/5 PT-OP-Q Treatments Start: 01/10/24 10:30 Freq: Status: Active Protocol: Document 03/28/24 13:48 NM (Rec: 03/28/24 14:32 NM [id number]) Cardio Equipment Bicycle (Upright) Duration (Minutes) 8 Resistance 0 Seat Position 3 Other L knee flex challenging Gym Equipment Shuttle Recovery L squat Resistance 25# (teal) > 37# > 25# for TKE Reps/Time 2x10 Therapeutic Exercises Supine Exercises knee flexion Side bilateral Equipment Used on blue ball Reps/Minutes 20 Sitting Exercises LAQ Sitting Exercise Name HEP review Side left Resistance level 1 band at ankles Reps/Minutes 10 Comments end of session Standing Exercises calf stretch Standing Exercise Name staggered stance at wall: 1. Gastrocnemius, 2. Soleus Side left Equipment Used wall for support/balance Reps/Minutes 2x30 ea Comments cued neutral foot position; burning sensation w/ soleus step up Standing Exercise Name 1. step up 4, 2. TKE w/ step up Side left Equipment Used 1 hand support for balance Reps/Minutes 1. 20, 2. 10 w/ 2 hold Comments improved ROM w/ reps, cueing for knee flex w/ descent TKE Standing Exercise Name with step up Other Exercises shower mobility Other Exercise Name 1. knee flex/ankle DF at wall, 2. marches Side left Reps/Minutes 10 Comments edu to hold grab bar, perform before lifting Self-Care/Home Management Treatment Education Patient Education Fall Risk,Safety Other Education Pt educated pt to use spc for household and community due to reports of buckling. Edu about quad strengthening PT-OP-R Modalities Start: 02/19/24 12:05 Freq: Status: Active Protocol: Document 02/21/24 11:33 NM (Rec: 02/21/24 12:23 NM [id number]) Electric Stimulation Electric Stimulation [place] Intensity 12 Frequency 50 Contraction Type Normal Ramp 2.0 Patient Position Hooklying Comments Performed 5/5 today for better ot confort.Skin assessed before, during prior. Sensation intact. Performed with quad set (towel under knee), quad set (towel under ankle), SAQ (foam roller) PT-OP-T Assessment and Plan Start: 01/10/24 10:30 Freq: Status: Active Protocol: Document 03/28/24 13:48 NM (Rec: 03/28/24 14:32 NM [id number]) Physical Therapy Assessment Goals Five Impairment knee flexion/extension strength 3/5 post-op Dispensing Audiologist Goal (LTG) Pt will improve L knee flexion and extension strength to at least 4+/5 MMT in order to demonstrate increased strength required for balance, gait, and ADLs 03/12/24: 4-/5 MMT LTG Duration 12 weeks 05/09/24 Four Impairment pain with transfers into car, tub, STS Short Term Goal (STG) Pt will report <3/10 L knee pain with transfers in/out of car or tub in order to demonstrate improvements in L knee AROM and pain management 03/12/24: pt continue to report pain 4/10 with car transfer 03/25/2024 pt reports pain can get up to an 8/10. STG Duration 6 weeks 03/28/24 Nursing Home Goal (LTG) Pt will improve 5x STS time to 12.6 sec or better from standard chair without increase in L knee pain in order to demonstrate improved knee flexion for transfers and BLE strength 03/25/24: 13.1 secs, has on pain or increase in pain. LTG Duration 12 weeks 05/09/24 Three Impairment not performing HEP Short Term Goal (STG) Pt will be issued HEP and report compliance 2-3x/wk in order to maximize progression with PT 03/12/24: daily compliance STG Duration 3 weeks MET Nursing Home Goal (LTG) Pt will report compliance with HEP 3x/wk in order to transition to maintenance program and maintain progress made during PT LTG Duration 12 weeks 05/09/24 Two Impairment pre-op 6 MWT distance 1094 ft; post op 664 ft w/ spc Short Term Goal (STG) Pt will normalize gait mechanics at least community distances without AD if appropriate in order to demonstrate increased independence with mobility similar to pre-operative mobility 03/12/24: household ambulation with antalgic gait and no AD, limited knee flex STG Duration 5 weeks 03/21/24 PROGRESSING Dispensing Audiologist Goal (LTG) Pt will be ambulate >1200 ft ( age-related norm) post op without AD if appropriate in order to demonstrate improved activity tolerance, strength, and ability to return to walks several miles long LTG Duration 12 weeks 05/09/24 One Impairment pre-op L knee ROM 118-8; post op 90-11 deg Short Term Goal (STG) Pt will improve L knee AROM to at least 100 deg flexion and lacking 5 deg extension or less deg in order to improve knee mobility during sitting, gait, and stair 03/12/24: 111 deg flex post manual, lacking 3 deg 03/25:110 flex post bike, 3 deg post bike. STG Duration 6 weeks 03/28/24 MET Dispensing Audiologist Goal (LTG) Pt will improve L knee AROM to at least 120 deg flex and 2 deg extension or less post- operatively in order to improve knee mobility during gait and stairs LTG Duration 12 weeks 05/09/24 Assessment Summary Assessment Mild increase in pain levels of L knee at end of session, no number provided. Pt responds well to upright bike, takes several minutes to warm up for knee flexion to improve, less circumduction. Activity tolerance, pain management, and flexion ROM is limiting factor for progression with PT. Has 107 deg L knee flex, 0 deg ext at end of session. Initiated stair training today on 4 step, pt challenged with knee flexion ROM; cued for ankle dorsiflexion and quad activation. Use of band to facilitate TKE. Able to progress resistance on leg press for single leg squat, cueing to maintain TKE and maximize knee flexion. Calf length also limited knee ROM; initiated wall calf stretch to increase ROM. Pt reports burning at anterior knee with soleus stretch, reduced as ROM limited. Educated to continue with use of spc for all ambulation due to reports of knee buckling; educated on fall risk and plan to improve quad strength for stability during gait. Also educated on gentle knee flex/hip flex ROM in shower prior to stepping over lip while holding grab bar for safety. Pt verbalizes understanding. Pt would continue to benefit from skilled PT for progressive L knee ROM and strengthening in order to decrease knee buckling during gait, improve mobility and pain management during ADLs. Physical Therapy Plan Frequency and Duration Frequency of Treatment 2x/Week Duration of treatment (weeks) 12 Plan of Care Start Date 02/14/24 Plan of Care End Date 05/09/24 Therapeutic Interventions Therapeutic Interventions Balance Training,Gait Training ,Home Exercise Program,Joint Mobilizations,Manual Therapy, Neuromuscular Re-education, Orthotic/Prosthetic Management ,Patient/Caregiver Education, Self-Care/Home Management, Sensory Integration,Soft Tissue Mobilization,Taping, Therapeutic Activities, Therapeutic Exercises Modalities Cold Pack/Ice Massage,Electric Stimulation,Hot Packs, Vasopneumatic Devices Next Visit Focus/Plan Next Note Type Treatment Note Next Visit Plan calf stretch on wall vs DORINA. Upright bike for knee flex/ warm up. Promote quad and glute strength: step up 4>6 progress when appropriate, TKE with band, leg press. Glute strength: lateral stepping with support, seated hip abd shahrzad. Cont with STS. Promote knee flexion ROM with joint mobilizations, swelling management, STM when needed. Must use spc until no reports of buckling.
--- NOTE | 2024-04-01 14:45 | PT.OTN ---
Current Diagnoses Unilateral primary osteoarthritis, left knee (04/01/24) Stiffness of left knee, not elsewhere classified (04/01/24) Other lack of coordination (04/01/24) Weakness (04/01/24) Physical Therapy Treatment Note PT-OP-A Visit Information Start: 01/10/24 10:30 Freq: Status: Active Protocol: Document 04/01/24 13:40 TS (Rec: 04/01/24 14:45 TS [id number]) Out-Patient Physical Therapy Visit Information Visit Information Visit Type Treatment Note Visit Note s/p L TKA 01/11/24 Visit Start Time 13:43 Visit Stop Time 14:28 Visit Number 12 PT-OP-B Current Condition Start: 01/10/24 10:30 Freq: Status: Active Protocol: Document 02/14/24 13:42 NM (Rec: 02/14/24 14:32 NM [id number]) Current Condition History of Current Condition Onset Date DOS 01/11/24 Current Complaints pain, mobility History of Current Condition 02/14/24: Pt now s/p L TKA. PT just had HHPT, reports went well. She has been doing her exercises everyday. Pt reports pain with getting in/out of car, sitting in car, ambulating, stairs. Has been going on walks 1/4 mi a few times, up and moving around house. Pt has been ambulating at home without spc in R hand. States 6/10 L knee pain at rest, 8/10 with movement; states worse at night. Only taking acetominophen for pain, orn takes ocycodone (bed time ). Has been using spc for about 2 weeks. 01/10/24: Pt will be having a L TKA tomorrow 01/10/[address] Rebollar. Pt has had fluid taken off several times, cortisone, hyaluronic acid to help with injections. Pt reports no difficulty with her R knee. She has 3 steps into home, rail on R side to enter; single story home. Pt presents with FWW. She has not been using an AD prior to surgery. Pt lives alone but her daughter lives in the same town; hoping daughter will help. Pt reports that she has aches in the back of her L leg (calf). Pt reports that the walker can fit in her home. She has a shower bar in her shower, none for toilet (low toilet). She is planning to be in hospital overnight. Treatment Goals Patient/Caregiver Goals walking a couple miles/day ( flat), back to yoga (a couple times/wk) PT-OP-C Subjective Start: 01/10/24 10:30 Freq: Status: Active Protocol: Document 04/01/24 13:40 TS (Rec: 04/01/24 14:45 TS [id number]) OP-PT Subjective Patient Comments Patient Comments Pt reports pain is not as high in the night anymore. Getting in/out of car and shower is still difficult. L knee buckled on pt today when walking to the car. PT-OP-D Balance Start: 01/10/24 10:30 Freq: Status: Active Protocol: Document 02/14/24 13:42 NM (Rec: 02/14/24 16:12 NM [id number]) Balance Tests Single Limb Standing Single Limb- Right 4 seconds Single Limb- Left 1 second with pain Tandem Tandem Standing 15 seconds PT-OP-E Functional Tests Start: 01/10/24 10:30 Freq: Status: Active Protocol: Document 02/14/24 13:42 NM (Rec: 02/14/24 14:32 NM [id number]) Functional Tests 6 Minute Walk Test Distance 02/13: 664 ft; 01/09: 1094 ft Device Used 02/13: spc; 01/09: no AD Comments 02/13, 01/09: pain in L knee Five Times Sit to Stand Test Score 02/14/24: 15.37 sec, 01/09: 16. 8 sec Comments painful, LLE more forward PT-OP-F Manual Assessment Start: 01/10/24 10:30 Freq: Status: Active Protocol: Document 02/14/24 13:42 NM (Rec: 02/14/24 15:41 NM [id number]) Manual Assessments Soft Tissue Assessment Soft Tissue Mobility Assessment Tightness of anterior knee over scar. Restrictions of L hamstring and quad, calf Joint Mobility Assessment Joint Mobility Assessment Hypomobility of L knee, pain with knee flexion especially anterior over scar. Tendency for L hip ER as position of comfort PT-OP-G Mobility & Gait Start: 01/10/24 10:30 Freq: Status: Active Protocol: Document 02/14/24 13:42 NM (Rec: 02/14/24 15:41 NM [id number]) OP Mobility Evaluation Transfers Sit to Stand No UE assist from 18 but places LLE more forward than RLE OP Gait Assessment Gait Gait Assistance Required: Standby Assistance Distance (Feet) 664 Assistive Devices Assistive Device Gait Belt,Straight Cane Gait Deviations General Gait Pattern Antalgic Factors Limiting Gait Function Factors Limiting Gait Function Decreased Strength,Pain Comments Gait Comments Tendency for L hip ER with stance and swing if not using spc, then more neutral. Has very stiff L stance, minimal knee flexion even with cueing. Pre-opo: 1094 ft without AD PT-OP-H Neuro Start: 01/10/24 10:30 Freq: Status: Active Protocol: Document 02/14/24 13:42 NM (Rec: 02/14/24 16:12 NM [id number]) Sensation Evaluation Comments Summary Comments Will assess formally next session Increased sensitivity around/ on incision and on either side of L knee PT-OP-J Posture/Palpation/Skin Start: 01/10/24 10:30 Freq: Status: Active Protocol: Document 02/14/24 13:42 NM (Rec: 02/14/24 15:41 NM [id number]) Posture Evaluation Position Standing Head/C-Spine Posture Forward Head T-Spine Posture Increased Kyphosis Shoulder Posture (L) Rounded,(R) Rounded Pelvis Posture Anteriorly Tilted Weight Distribution Weight Shifted Right Hip Posture (R) Neutral,(L) Externally Rotated Knee Posture (L) Genu Valgus,(R) Genu Valgus Palpation Assessment Location L knee Palpation Details Tenderness along medial and lateral knee Increased sensitivity along scar, medial and lateral knee Increased tightness of calf, hamstrings, quads, hip flexores Skin Assessment Incisional Assessment Incision Appearance/Comments Incision intact, pink, clean and dry. No signs of infection or DVT, only reported tenderness of proximal calf. Over incision, leftover adhesive from bandage present PT-OP-K Range of Motion Start: 01/10/24 10:30 Freq: Status: Active Protocol: Document 03/12/24 14:35 NM (Rec: 03/12/24 15:43 NM [id number]) Knee Goniometric Range of Motion Knee Right Flexion Active (degrees) 120 Extension Active (degrees) 2 Left Flexion Active (degrees) 105 Extension Active (degrees) 3 Comments Pre-operative: 118 deg knee flexion, lacking 8 deg extension; Post op: 90 deg flex, lacking 11 deg ext 03/12/24: 105 deg flex start of session (111 post manual) and lacking 3 deg extension PT-OP-M Strength Start: 01/10/24 10:30 Freq: Status: Active Protocol: Document 03/12/24 14:35 NM (Rec: 03/12/24 15:43 NM [id number]) Knee Strength Knee Manual Muscle Testing Right Flexion (S2) 4 Good Extension (L3) 4 Good Left Flexion (S2) 4- Good- Extension (L3) 4- Good- Comments 01/09 pre-operative: 3+/5 post-op: 3/5 03/12/24: 4-/5 PT-OP-Q Treatments Start: 01/10/24 10:30 Freq: Status: Active Protocol: Document 04/01/24 13:40 TS (Rec: 04/01/24 14:45 TS [id number]) Cardio Equipment Bicycle (Upright) Duration (Minutes) 8 Resistance 0 Seat Position 3 Other L knee flex challenging, flexion improves with increased time Therapeutic Exercises Sitting Exercises LAQ Sitting Exercise Name HEP Side bilateral Resistance level 1 band at ankles Reps/Minutes 2x10 Comments end of session Standing Exercises Squat Standing Exercise Name tapping bottom on chair Reps/Minutes 2x10 Comments cues for knees apart step up Standing Exercise Name 1. step up 6 Side left Equipment Used 1 hand support for balance Reps/Minutes x20 Comments decreased circling/ circumduction of LLE TKE Resistance LVL 1 Reps/Minutes x10 Comments discomfort going down anterior portion of knee Manual Therapy Treatment Joint Mobilizations L knee Joint patellar, tibiofemoral Direction inf/sup, med/lat; PA/AP w/ inf glide and slight distract Comments Has discomfort in medial knee with patella mobs PT-OP-R Modalities Start: 02/19/24 12:05 Freq: Status: Active Protocol: Document 02/21/24 11:33 NM (Rec: 02/21/24 12:23 NM [id number]) Electric Stimulation Electric Stimulation [place] Intensity 12 Frequency 50 Contraction Type Normal Ramp 2.0 Patient Position Hooklying Comments Performed 5/5 today for better ot confort.Skin assessed before, during prior. Sensation intact. Performed with quad set (towel under knee), quad set (towel under ankle), SAQ (foam roller) PT-OP-T Assessment and Plan Start: 01/10/24 10:30 Freq: Status: Active Protocol: Document 04/01/24 13:40 TS (Rec: 04/01/24 14:45 TS [id number]) Physical Therapy Assessment Goals Five Impairment knee flexion/extension strength 3/5 post-op Shelter Goal (LTG) Pt will improve L knee flexion and extension strength to at least 4+/5 MMT in order to demonstrate increased strength required for balance, gait, and ADLs 03/12/24: 4-/5 MMT LTG Duration 12 weeks 05/09/24 Four Impairment pain with transfers into car, tub, STS Short Term Goal (STG) Pt will report <3/10 L knee pain with transfers in/out of car or tub in order to demonstrate improvements in L knee AROM and pain management 03/12/24: pt continue to report pain 4/10 with car transfer 03/25/2024 pt reports pain can get up to an 8/10. STG Duration 6 weeks 03/28/24 Shelter Goal (LTG) Pt will improve 5x STS time to 12.6 sec or better from standard chair without increase in L knee pain in order to demonstrate improved knee flexion for transfers and BLE strength 03/25/24: 13.1 secs, has on pain or increase in pain. LTG Duration 12 weeks 05/09/24 Three Impairment not performing HEP Short Term Goal (STG) Pt will be issued HEP and report compliance 2-3x/wk in order to maximize progression with PT 03/12/24: daily compliance STG Duration 3 weeks MET Shelter Goal (LTG) Pt will report compliance with HEP 3x/wk in order to transition to maintenance program and maintain progress made during PT LTG Duration 12 weeks 05/09/24 Two Impairment pre-op 6 MWT distance 1094 ft; post op 664 ft w/ spc Short Term Goal (STG) Pt will normalize gait mechanics at least community distances without AD if appropriate in order to demonstrate increased independence with mobility similar to pre-operative mobility 03/12/24: household ambulation with antalgic gait and no AD, limited knee flex STG Duration 5 weeks 03/21/24 PROGRESSING Shelter Goal (LTG) Pt will be ambulate >1200 ft ( age-related norm) post op without AD if appropriate in order to demonstrate improved activity tolerance, strength, and ability to return to walks several miles long LTG Duration 12 weeks 05/09/24 One Impairment pre-op L knee ROM 118-8; post op 90-11 deg Short Term Goal (STG) Pt will improve L knee AROM to at least 100 deg flexion and lacking 5 deg extension or less deg in order to improve knee mobility during sitting, gait, and stair 03/12/24: 111 deg flex post manual, lacking 3 deg 03/25:110 flex post bike, 3 deg post bike. STG Duration 6 weeks 03/28/24 MET Spindle Setter Goal (LTG) Pt will improve L knee AROM to at least 120 deg flex and 2 deg extension or less post- operatively in order to improve knee mobility during gait and stairs LTG Duration 12 weeks 05/09/24 Assessment Summary Assessment Pt continues to be challenged with flexion of knee. She has some improvement with step ups to 6 step and decreased circling of hip. TKE with LVL 1 TB is challenging and she has discomfort going down anterior portion of LLE. Pt tends to have discomfort and pain with all ex. Condensed HEP this session. Physical Therapy Plan Next Visit Focus/Plan Next Note Type Treatment Note Next Visit Plan Calf stretch, sidestepping, upright bike, step ups 6 step , LAQ with TB. Assess squat with tapping of bottom.
--- NOTE | 2024-04-04 16:24 | PT.OTN ---
Current Diagnoses Unilateral primary osteoarthritis, left knee (04/04/24) Stiffness of left knee, not elsewhere classified (04/04/24) Other lack of coordination (04/04/24) Weakness (04/04/24) Physical Therapy Treatment Note PT-OP-A Visit Information Start: 01/10/24 10:30 Freq: Status: Active Protocol: Document 04/04/24 13:26 TS (Rec: 04/04/24 16:24 TS [id number]) Out-Patient Physical Therapy Visit Information Visit Information Visit Type Treatment Note Visit Note s/p L TKA 01/11/24 Visit Start Time 13:35 Visit Stop Time 14:15 Visit Number 13 Number of DIRECT SUPPORT PROFESSIONAL CAREGIVER Visits 1 Evaluation Information Evaluation Date 01/10/24 Precautions Precautions DOS L TKA 01/11/24 PMH diabetes II PT-OP-B Current Condition Start: 01/10/24 10:30 Freq: Status: Active Protocol: Document 02/14/24 13:42 NM (Rec: 02/14/24 14:32 NM [id number]) Current Condition History of Current Condition Onset Date DOS 01/11/24 Current Complaints pain, mobility History of Current Condition 02/14/24: Pt now s/p L TKA. PT just had HHPT, reports went well. She has been doing her exercises everyday. Pt reports pain with getting in/out of car, sitting in car, ambulating, stairs. Has been going on walks 1/4 mi a few times, up and moving around house. Pt has been ambulating at home without spc in R hand. States 6/10 L knee pain at rest, 8/10 with movement; states worse at night. Only taking acetominophen for pain, orn takes ocycodone (bed time ). Has been using spc for about 2 weeks. 01/10/24: Pt will be having a L TKA tomorrow 01/10/[address] Rebollar. Pt has had fluid taken off several times, cortisone, hyaluronic acid to help with injections. Pt reports no difficulty with her R knee. She has 3 steps into home, rail on R side to enter; single story home. Pt presents with FWW. She has not been using an AD prior to surgery. Pt lives alone but her daughter lives in the same town; hoping daughter will help. Pt reports that she has aches in the back of her L leg (calf). Pt reports that the walker can fit in her home. She has a shower bar in her shower, none for toilet (low toilet). She is planning to be in hospital overnight. Treatment Goals Patient/Caregiver Goals walking a couple miles/day ( flat), back to yoga (a couple times/wk) PT-OP-C Subjective Start: 01/10/24 10:30 Freq: Status: Active Protocol: Document 04/04/24 13:26 TS (Rec: 04/04/24 16:24 TS [id number]) OP-PT Subjective Patient Comments Patient Comments Pt continues to report stiffness and discomfort sitting in car. x1 buckling when walking outside, had SPC off the ground. PT-OP-D Balance Start: 01/10/24 10:30 Freq: Status: Active Protocol: Document 02/14/24 13:42 NM (Rec: 02/14/24 16:12 NM [id number]) Balance Tests Single Limb Standing Single Limb- Right 4 seconds Single Limb- Left 1 second with pain Tandem Tandem Standing 15 seconds PT-OP-E Functional Tests Start: 01/10/24 10:30 Freq: Status: Active Protocol: Document 02/14/24 13:42 NM (Rec: 02/14/24 14:32 NM [id number]) Functional Tests 6 Minute Walk Test Distance 02/13: 664 ft; 01/09: 1094 ft Device Used 02/13: spc; 01/09: no AD Comments 02/13, 01/09: pain in L knee Five Times Sit to Stand Test Score 02/14/24: 15.37 sec, 01/09: 16. 8 sec Comments painful, LLE more forward PT-OP-F Manual Assessment Start: 01/10/24 10:30 Freq: Status: Active Protocol: Document 02/14/24 13:42 NM (Rec: 02/14/24 15:41 NM [id number]) Manual Assessments Soft Tissue Assessment Soft Tissue Mobility Assessment Tightness of anterior knee over scar. Restrictions of L hamstring and quad, calf Joint Mobility Assessment Joint Mobility Assessment Hypomobility of L knee, pain with knee flexion especially anterior over scar. Tendency for L hip ER as position of comfort PT-OP-G Mobility & Gait Start: 01/10/24 10:30 Freq: Status: Active Protocol: Document 02/14/24 13:42 NM (Rec: 02/14/24 15:41 NM [id number]) OP Mobility Evaluation Transfers Sit to Stand No UE assist from 18 but places LLE more forward than RLE OP Gait Assessment Gait Gait Assistance Required: Standby Assistance Distance (Feet) 664 Assistive Devices Assistive Device Gait Belt,Straight Cane Gait Deviations General Gait Pattern Antalgic Factors Limiting Gait Function Factors Limiting Gait Function Decreased Strength,Pain Comments Gait Comments Tendency for L hip ER with stance and swing if not using spc, then more neutral. Has very stiff L stance, minimal knee flexion even with cueing. Pre-opo: 1094 ft without AD PT-OP-H Neuro Start: 01/10/24 10:30 Freq: Status: Active Protocol: Document 02/14/24 13:42 NM (Rec: 02/14/24 16:12 NM [id number]) Sensation Evaluation Comments Summary Comments Will assess formally next session Increased sensitivity around/ on incision and on either side of L knee PT-OP-J Posture/Palpation/Skin Start: 01/10/24 10:30 Freq: Status: Active Protocol: Document 02/14/24 13:42 NM (Rec: 02/14/24 15:41 NM [id number]) Posture Evaluation Position Standing Head/C-Spine Posture Forward Head T-Spine Posture Increased Kyphosis Shoulder Posture (L) Rounded,(R) Rounded Pelvis Posture Anteriorly Tilted Weight Distribution Weight Shifted Right Hip Posture (R) Neutral,(L) Externally Rotated Knee Posture (L) Genu Valgus,(R) Genu Valgus Palpation Assessment Location L knee Palpation Details Tenderness along medial and lateral knee Increased sensitivity along scar, medial and lateral knee Increased tightness of calf, hamstrings, quads, hip flexores Skin Assessment Incisional Assessment Incision Appearance/Comments Incision intact, pink, clean and dry. No signs of infection or DVT, only reported tenderness of proximal calf. Over incision, leftover adhesive from bandage present PT-OP-K Range of Motion Start: 01/10/24 10:30 Freq: Status: Active Protocol: Document 03/12/24 14:35 NM (Rec: 03/12/24 15:43 NM [id number]) Knee Goniometric Range of Motion Knee Right Flexion Active (degrees) 120 Extension Active (degrees) 2 Left Flexion Active (degrees) 105 Extension Active (degrees) 3 Comments Pre-operative: 118 deg knee flexion, lacking 8 deg extension; Post op: 90 deg flex, lacking 11 deg ext 03/12/24: 105 deg flex start of session (111 post manual) and lacking 3 deg extension PT-OP-M Strength Start: 01/10/24 10:30 Freq: Status: Active Protocol: Document 03/12/24 14:35 NM (Rec: 03/12/24 15:43 NM [id number]) Knee Strength Knee Manual Muscle Testing Right Flexion (S2) 4 Good Extension (L3) 4 Good Left Flexion (S2) 4- Good- Extension (L3) 4- Good- Comments 01/09 pre-operative: 3+/5 post-op: 3/5 03/12/24: 4-/5 PT-OP-Q Treatments Start: 01/10/24 10:30 Freq: Status: Active Protocol: Document 04/04/24 13:26 TS (Rec: 04/04/24 16:24 TS [id number]) Cardio Equipment Bicycle (Upright) Duration (Minutes) 8 Resistance 0 Seat Position 3 Other L knee flex challenging, flexion improves with increased time Therapeutic Exercises Sitting Exercises HS stretch Reps/Minutes 3x30 LAQ Sitting Exercise Name HEP Side bilateral Resistance level 1 band at ankles Reps/Minutes 2x10 Comments end of session Standing Exercises Sidestepping Reps/Minutes 4x10' Comments handrails calf stretch Standing Exercise Name DORINA Reps/Minutes 2x30 step up Standing Exercise Name 1. step up 6 Side left Equipment Used 1 hand support for balance Reps/Minutes x10 TKE Resistance LVL 2 Reps/Minutes x10 Manual Therapy Treatment Joint Mobilizations L knee Joint patellar, tibiofemoral Direction inf/sup, med/lat; PA/AP w/ inf glide and slight distract Comments Has discomfort in medial knee with patella mobs PT-OP-R Modalities Start: 02/19/24 12:05 Freq: Status: Active Protocol: Document 02/21/24 11:33 NM (Rec: 02/21/24 12:23 NM [id number]) Electric Stimulation Electric Stimulation [place] Intensity 12 Frequency 50 Contraction Type Normal Ramp 2.0 Patient Position Hooklying Comments Performed 5/5 today for better ot confort.Skin assessed before, during prior. Sensation intact. Performed with quad set (towel under knee), quad set (towel under ankle), SAQ (foam roller) PT-OP-T Assessment and Plan Start: 01/10/24 10:30 Freq: Status: Active Protocol: Document 04/04/24 13:26 TS (Rec: 04/04/24 16:24 TS [id number]) Physical Therapy Assessment Goals Five Impairment knee flexion/extension strength 3/5 post-op Rn Plastic Surgery Goal (LTG) Pt will improve L knee flexion and extension strength to at least 4+/5 MMT in order to demonstrate increased strength required for balance, gait, and ADLs 03/12/24: 4-/5 MMT LTG Duration 12 weeks 05/09/24 Four Impairment pain with transfers into car, tub, STS Short Term Goal (STG) Pt will report <3/10 L knee pain with transfers in/out of car or tub in order to demonstrate improvements in L knee AROM and pain management 03/12/24: pt continue to report pain 4/10 with car transfer 03/25/2024 pt reports pain can get up to an 8/10. STG Duration 6 weeks 03/28/24 Rn Plastic Surgery Goal (LTG) Pt will improve 5x STS time to 12.6 sec or better from standard chair without increase in L knee pain in order to demonstrate improved knee flexion for transfers and BLE strength 03/25/24: 13.1 secs, has on pain or increase in pain. LTG Duration 12 weeks 05/09/24 Three Impairment not performing HEP Short Term Goal (STG) Pt will be issued HEP and report compliance 2-3x/wk in order to maximize progression with PT 03/12/24: daily compliance STG Duration 3 weeks MET Detention Goal (LTG) Pt will report compliance with HEP 3x/wk in order to transition to maintenance program and maintain progress made during PT LTG Duration 12 weeks 05/09/24 Two Impairment pre-op 6 MWT distance 1094 ft; post op 664 ft w/ spc Short Term Goal (STG) Pt will normalize gait mechanics at least community distances without AD if appropriate in order to demonstrate increased independence with mobility similar to pre-operative mobility 03/12/24: household ambulation with antalgic gait and no AD, limited knee flex STG Duration 5 weeks 03/21/24 PROGRESSING Detention Goal (LTG) Pt will be ambulate >1200 ft ( age-related norm) post op without AD if appropriate in order to demonstrate improved activity tolerance, strength, and ability to return to walks several miles long LTG Duration 12 weeks 05/09/24 One Impairment pre-op L knee ROM 118-8; post op 90-11 deg Short Term Goal (STG) Pt will improve L knee AROM to at least 100 deg flexion and lacking 5 deg extension or less deg in order to improve knee mobility during sitting, gait, and stair 03/12/24: 111 deg flex post manual, lacking 3 deg 03/25:110 flex post bike, 3 deg post bike. STG Duration 6 weeks 03/28/24 MET Detention Goal (LTG) Pt will improve L knee AROM to at least 120 deg flex and 2 deg extension or less post- operatively in order to improve knee mobility during gait and stairs LTG Duration 12 weeks 05/09/24 Assessment Summary Assessment Pt had increased discomfort with today's session. She continues to c/o stiffness and pain with sitting and getting out of car. Flexion after manual 108D, knee ext 0D. She has low tolerance to exercise and often c/o discomfort. Physical Therapy Plan Next Visit Focus/Plan Next Note Type Treatment Note Next Visit Plan Continue quad strength, swelling management, stairs, sidestep, balance, flexion.
--- NOTE | 2024-04-18 16:25 | PT.OTN ---
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 PT just had HHPT, reports went well. She has been doing her exercises everyday. Pt reports pain with getting in/out of car, sitting in car, ambulating, stairs. Has been going on walks 1/4 mi a few times, up and moving around house. Pt has been ambulating at home without spc in R hand. States 6/10 L knee pain at rest, 8/10 with movement; states worse at night. Only taking acetominophen for pain, orn takes ocycodone (bed time ). Has been using spc for about 2 weeks. 01/10/24: Pt will be having a L TKA tomorrow 01/10/[address] Rebollar. Pt has had fluid taken off several times, cortisone, hyaluronic acid to help with injections. Pt reports no difficulty with her R knee. She has 3 steps into home, rail on R side to enter; single story home. Pt presents with FWW. She has not been using an AD prior to surgery. Pt lives alone but her daughter lives in the same town; hoping daughter will help. Pt reports that she has aches in the back of her L leg (calf). Pt reports that the walker can fit in her home. She has a shower bar in her shower, none for toilet (low toilet). She is planning to be in hospital overnight. Treatment Goals Patient/Caregiver Goals walking a couple miles/day ( flat), back to yoga (a couple times/wk) PT-OP-C Subjective Start: 01/10/24 10:30 Freq: Status: Active Protocol: Document 04/18/24 13:35 TS (Rec: 04/18/24 16:25 TS [id number]) OP-PT Subjective Patient Comments Patient Comments Pt presents with no cane, only uses on unlevel surfaces. Pain is much less, steps and getting in/out of the shower are difficult. Reports no buckling in LLE. She can cross her LLE over RLE to put on socks. PT-OP-D Balance Start: 01/10/24 10:30 Freq: Status: Active Protocol: Document 02/14/24 13:42 NM (Rec: 02/14/24 16:12 NM [id number]) Balance Tests Single Limb Standing Single Limb- Right 4 seconds Single Limb- Left 1 second with pain Tandem Tandem Standing 15 seconds PT-OP-E Functional Tests Start: 01/10/24 10:30 Freq: Status: Active Protocol: Document 02/14/24 13:42 NM (Rec: 02/14/24 14:32 NM [id number]) Functional Tests 6 Minute Walk Test Distance 02/13: 664 ft; 01/09: 1094 ft Device Used 02/13: spc; 01/09: no AD Comments 02/13, 01/09: pain in L knee Five Times Sit to Stand Test Score 02/14/24: 15.37 sec, 01/09: 16. 8 sec Comments painful, LLE more forward PT-OP-F Manual Assessment Start: 01/10/24 10:30 Freq: Status: Active Protocol: Document 02/14/24 13:42 NM (Rec: 02/14/24 15:41 NM [id number]) Manual Assessments Soft Tissue Assessment Soft Tissue Mobility Assessment Tightness of anterior knee over scar. Restrictions of L hamstring and quad, calf Joint Mobility Assessment Joint Mobility Assessment Hypomobility of L knee, pain with knee flexion especially anterior over scar. Tendency for L hip ER as position of comfort PT-OP-G Mobility & Gait Start: 01/10/24 10:30 Freq: Status: Active Protocol: Document 02/14/24 13:42 NM (Rec: 02/14/24 15:41 NM [id number]) OP Mobility Evaluation Transfers Sit to Stand No UE assist from 18 but [address] LLE more forward than RLE OP Gait Assessment Gait Gait Assistance Required: Standby Assistance Distance (Feet) 664 Assistive Devices Assistive Device Gait Belt,Straight Cane Gait Deviations General Gait Pattern Antalgic Factors Limiting Gait Function Factors Limiting Gait Function Decreased Strength,Pain Comments Gait Comments Tendency for L hip ER with stance and swing if not using spc, then more neutral. Has very stiff L stance, minimal knee flexion even with cueing. Pre-opo: 1094 ft without AD PT-OP-H Neuro Start: 01/10/24 10:30 Freq: Status: Active Protocol: Document 02/14/24 13:42 NM (Rec: 02/14/24 16:12 NM [id number]) Sensation Evaluation Comments Summary Comments Will assess formally next session Increased sensitivity around/ on incision and on either side of L knee PT-OP-J Posture/Palpation/Skin Start: 01/10/24 10:30 Freq: Status: Active Protocol: Document 02/14/24 13:42 NM (Rec: 02/14/24 15:41 NM [id number]) Posture Evaluation Position Standing Head/C-Spine Posture Forward Head T-Spine Posture Increased Kyphosis Shoulder Posture (L) Rounded,(R) Rounded Pelvis Posture Anteriorly Tilted Weight Distribution Weight Shifted Right Hip Posture (R) Neutral,(L) Externally Rotated Knee Posture (L) Genu Valgus,(R) Genu Valgus Palpation Assessment Location L knee Palpation Details Tenderness along medial and lateral knee Increased sensitivity along scar, medial and lateral knee Increased tightness of calf, hamstrings, quads, hip flexores Skin Assessment Incisional Assessment Incision Appearance/Comments Incision intact, pink, clean and dry. No signs of infection or DVT, only reported tenderness of proximal calf. Over incision, leftover adhesive from bandage present PT-OP-K Range of Motion Start: 01/10/24 10:30 Freq: Status: Active Protocol: Document 03/12/24 14:35 NM (Rec: 03/12/24 15:43 NM [id number]) Knee Goniometric Range of Motion Knee Right Flexion Active (degrees) 120 Extension Active (degrees) 2 Left Flexion Active (degrees) 105 Extension Active (degrees) 3 Comments Pre-operative: 118 deg knee flexion, lacking 8 deg extension; Post op: 90 deg flex, lacking 11 deg ext 03/12/24: 105 deg flex start of session (111 post manual) and lacking 3 deg extension PT-OP-M Strength Start: 01/10/24 10:30 Freq: Status: Active Protocol: Document 03/12/24 14:35 NM (Rec: 03/12/24 15:43 NM [id number]) Knee Strength Knee Manual Muscle Testing Right Flexion (S2) 4 Good Extension (L3) 4 Good Left Flexion (S2) 4- Good- Extension (L3) 4- Good- Comments 01/09 pre-operative: 3+/5 post-op: 3/5 03/12/24: 4-/5 PT-OP-Q Treatments Start: 01/10/24 10:30 Freq: Status: Active Protocol: Document 04/18/24 13:35 TS (Rec: 04/18/24 16:25 TS [id number]) Cardio Equipment Bicycle (Upright) Duration (Minutes) 8 Resistance 4 Seat Position 3 Other L knee flex challenging, flexion improves with increased time Therapeutic Exercises Supine Exercises knee flexion Side bilateral Equipment Used table Reps/Minutes x10 Sitting Exercises HS stretch Reps/Minutes 3x30 Standing Exercises Sidestepping Resistance LVL3 Reps/Minutes 4x10' Comments handrails calf stretch Standing Exercise Name DORINA Reps/Minutes 3x30 step up Standing Exercise Name 1. step up 6 Side left Equipment Used 1 hand support for balance Reps/Minutes x10 Manual Therapy Treatment Joint Mobilizations L knee Joint patellar, tibiofemoral Direction inf/sup, med/lat; PA/AP w/ inf glide and slight distract Comments Has discomfort in medial knee with patella mobs PT-OP-R Modalities Start: 02/19/24 12:05 Freq: Status: Active Protocol: Document 02/21/24 11:33 NM (Rec: 02/21/24 12:23 NM [id number]) Electric Stimulation Electric Stimulation [place] Intensity 12 Frequency 50 Contraction Type Normal Ramp 2.0 Patient Position Hooklying Comments Performed 5/5 today for better ot confort.Skin assessed before, during prior. Sensation intact. Performed with quad set (towel under knee), quad set (towel under ankle), SAQ (foam roller) PT-OP-T Assessment and Plan Start: 01/10/24 10:30 Freq: Status: Active Protocol: Document 04/18/24 13:35 TS (Rec: 04/18/24 16:25 TS [id number]) Physical Therapy Assessment Goals Five Impairment knee flexion/extension strength 3/5 post-op Mcfp Goal (LTG) Pt will improve L knee flexion and extension strength to at least 4+/5 MMT in order to demonstrate increased strength required for balance, gait, and ADLs 03/12/24: 4-/5 MMT LTG Duration 12 weeks 05/09/24 Four Impairment pain with transfers into car, tub, STS Short Term Goal (STG) Pt will report <3/10 L knee pain with transfers in/out of car or tub in order to demonstrate improvements in L knee AROM and pain management 03/12/24: pt continue to report pain 4/10 with car transfer 03/25/2024 pt reports pain can get up to an 8/10. STG Duration 6 weeks 03/28/24 Staff Auditor Goal (LTG) Pt will improve 5x STS time to 12.6 sec or better from standard chair without increase in L knee pain in order to demonstrate improved knee flexion for transfers and BLE strength 03/25/24: 13.1 secs, has on pain or increase in pain. LTG Duration 12 weeks 05/09/24 Three Impairment not performing HEP Short Term Goal (STG) Pt will be issued HEP and report compliance 2-3x/wk in order to maximize progression with PT 03/12/24: daily compliance STG Duration 3 weeks MET Mcfp Goal (LTG) Pt will report compliance with HEP 3x/wk in order to transition to maintenance program and maintain progress made during PT LTG Duration 12 weeks 05/09/24 Two Impairment pre-op 6 MWT distance 1094 ft; post op 664 ft w/ spc Short Term Goal (STG) Pt will normalize gait mechanics at least community distances without AD if appropriate in order to demonstrate increased independence with mobility similar to pre-operative mobility 03/12/24: household ambulation with antalgic gait and no AD, limited knee flex STG Duration 5 weeks 03/21/24 PROGRESSING Mcfp Goal (LTG) Pt will be ambulate >1200 ft ( age-related norm) post op without AD if appropriate in order to demonstrate improved activity tolerance, strength, and ability to return to walks several miles long LTG Duration 12 weeks 05/09/24 One Impairment pre-op L knee ROM 118-8; post op 90-11 deg Short Term Goal (STG) Pt will improve L knee AROM to at least 100 deg flexion and lacking 5 deg extension or less deg in order to improve knee mobility during sitting, gait, and stair 03/12/24: 111 deg flex post manual, lacking 3 deg 03/25:110 flex post bike, 3 deg post bike. STG Duration 6 weeks 03/28/24 MET Staff Auditor Goal (LTG) Pt will improve L knee AROM to at least 120 deg flex and 2 deg extension or less post- operatively in order to improve knee mobility during gait and stairs 04/18/2024: Knee flex ~115D. LTG Duration 12 weeks 05/09/24 Assessment Summary Assessment Pt presents with decreased swelling in LLE. LLE knee flex ROM ~115D. She continues to have discomfort throughout most exercises, stretches and manual therapy. L hamstring remains tight more medially. Increased resistance on bike, pt tolerated well. Physical Therapy Plan Next Visit Focus/Plan Next Note Type Treatment Note Next Visit Plan Next:Continue working on steps , pt struggles most with these . Continue stretches and manual therapy. Continue quad strength, swelling management, stairs, sidestep, balance, flexion.
--- NOTE | 2024-04-21 15:45 | PT.OTN ---
Current Diagnoses Unilateral primary osteoarthritis, left knee (04/21/24) Stiffness of left knee, not elsewhere classified (04/21/24) Other lack of coordination (04/21/24) Weakness (04/21/24) Physical Therapy Treatment Note PT-OP-A Visit Information Start: 01/10/24 10:30 Freq: Status: Active Protocol: Document 04/21/24 13:46 NM (Rec: 04/21/24 14:32 NM [id number]) Out-Patient Physical Therapy Visit Information Visit Information Visit Type Progress Note Visit Note s/p L TKA 01/11/24 Visit Start Time 13:48 Visit Stop Time 14:30 Visit Number 15 Evaluation Information Evaluation Date 01/10/24 Precautions Precautions DOS L TKA 01/11/24 PMH diabetes II PT-OP-B Current Condition Start: 01/10/24 10:30 Freq: Status: Active Protocol: Document 02/14/24 13:42 NM (Rec: 02/14/24 14:32 NM [id number]) Current Condition History of Current Condition Onset Date DOS 01/11/24 Current Complaints pain, mobility History of Current Condition 02/14/24: Pt now s/p L TKA. PT just had HHPT, reports went well. She has been doing her exercises everyday. Pt reports pain with getting in/out of car, sitting in car, ambulating, stairs. Has been going on walks 1/4 mi a few times, up and moving around house. Pt has been ambulating at home without spc in R hand. States 6/10 L knee pain at rest, 8/10 with movement; states worse at night. Only taking acetominophen for pain, orn takes ocycodone (bed time ). Has been using spc for about 2 weeks. 01/10/24: Pt will be having a L TKA tomorrow 01/10/[address] Rebollar. Pt has had fluid taken off several times, cortisone, hyaluronic acid to help with injections. Pt reports no difficulty with her R knee. She has 3 steps into home, rail on R side to enter; single story home. Pt presents with FWW. She has not been using an AD prior to surgery. Pt lives alone but her daughter lives in the same town; hoping daughter will help. Pt reports that she has aches in the back of her L leg (calf). Pt reports that the walker can fit in her home. She has a shower bar in her shower, none for toilet (low toilet). She is planning to be in hospital overnight. Treatment Goals Patient/Caregiver Goals walking a couple miles/day ( flat), back to yoga (a couple times/wk) PT-OP-C Subjective Start: 01/10/24 10:30 Freq: Status: Active Protocol: Document 04/21/24 13:46 NM (Rec: 04/21/24 14:32 NM [id number]) OP-PT Subjective Patient Comments Patient Comments Pt reports that Sunday night was swollen and sore after last session. She reports that she tried riding the bike over the weekend. She reports that previously was an ache but now a sharp pain on the inside of knee. States that the more that she moves, the better it feels. Reports 4/10. She reports not buckling as much, reports that the exercises are helping. Still having trouble getting in/out of shower due to knee flexion. PT-OP-D Balance Start: 01/10/24 10:30 Freq: Status: Active Protocol: Document 02/14/24 13:42 NM (Rec: 02/14/24 16:12 NM [id number]) Balance Tests Single Limb Standing Single Limb- Right 4 seconds Single Limb- Left 1 second with pain Tandem Tandem Standing 15 seconds PT-OP-E Functional Tests Start: 01/10/24 10:30 Freq: Status: Active Protocol: Document 02/14/24 13:42 NM (Rec: 02/14/24 14:32 NM [id number]) Functional Tests 6 Minute Walk Test Distance 02/13: 664 ft; 01/09: 1094 ft Device Used 02/13: spc; 01/09: no AD Comments 02/13, 01/09: pain in L knee Five Times Sit to Stand Test Score 02/14/24: 15.37 sec, 01/09: 16. 8 sec Comments painful, LLE more forward PT-OP-F Manual Assessment Start: 01/10/24 10:30 Freq: Status: Active Protocol: Document 02/14/24 13:42 NM (Rec: 02/14/24 15:41 NM [id number]) Manual Assessments Soft Tissue Assessment Soft Tissue Mobility Assessment Tightness of anterior knee over scar. Restrictions of L hamstring and quad, calf Joint Mobility Assessment Joint Mobility Assessment Hypomobility of L knee, pain with knee flexion especially anterior over scar. Tendency for L hip ER as position of comfort PT-OP-G Mobility & Gait Start: 01/10/24 10:30 Freq: Status: Active Protocol: Document 02/14/24 13:42 NM (Rec: 02/14/24 15:41 NM [id number]) OP Mobility Evaluation Transfers Sit to Stand No UE assist from 18 but [address] LLE more forward than RLE OP Gait Assessment Gait Gait Assistance Required: Standby Assistance Distance (Feet) 664 Assistive Devices Assistive Device Gait Belt,Straight Cane Gait Deviations General Gait Pattern Antalgic Factors Limiting Gait Function Factors Limiting Gait Function Decreased Strength,Pain Comments Gait Comments Tendency for L hip ER with stance and swing if not using spc, then more neutral. Has very stiff L stance, minimal knee flexion even with cueing. Pre-opo: 1094 ft without AD PT-OP-H Neuro Start: 01/10/24 10:30 Freq: Status: Active Protocol: Document 02/14/24 13:42 NM (Rec: 02/14/24 16:12 NM [id number]) Sensation Evaluation Comments Summary Comments Will assess formally next session Increased sensitivity around/ on incision and on either side of L knee PT-OP-J Posture/Palpation/Skin Start: 01/10/24 10:30 Freq: Status: Active Protocol: Document 02/14/24 13:42 NM (Rec: 02/14/24 15:41 NM [id number]) Posture Evaluation Position Standing Head/C-Spine Posture Forward Head T-Spine Posture Increased Kyphosis Shoulder Posture (L) Rounded,(R) Rounded Pelvis Posture Anteriorly Tilted Weight Distribution Weight Shifted Right Hip Posture (R) Neutral,(L) Externally Rotated Knee Posture (L) Genu Valgus,(R) Genu Valgus Palpation Assessment Location L knee Palpation Details Tenderness along medial and lateral knee Increased sensitivity along scar, medial and lateral knee Increased tightness of calf, hamstrings, quads, hip flexores Skin Assessment Incisional Assessment Incision Appearance/Comments Incision intact, pink, clean and dry. No signs of infection or DVT, only reported tenderness of proximal calf. Over incision, leftover adhesive from bandage present PT-OP-K Range of Motion Start: 01/10/24 10:30 Freq: Status: Active Protocol: Document 04/21/24 13:46 NM (Rec: 04/21/24 14:32 NM [id number]) Knee Goniometric Range of Motion Knee Right Flexion Active (degrees) 120 Extension Active (degrees) 2 Left Flexion Active (degrees) 107 Extension Active (degrees) 2 Comments Pre-operative: 118 deg knee flexion, lacking 8 deg extension; Post op: 90 deg flex, lacking 11 deg ext 03/12/24: 105 deg flex start of session (111 post manual) and lacking 3 deg extension 04/21/24: 107 deg flex at start of session (114 deg post manual), lacking 2 deg ext PT-OP-M Strength Start: 01/10/24 10:30 Freq: Status: Active Protocol: Document 04/21/24 13:46 NM (Rec: 04/21/24 14:32 NM [id number]) Hip Strength Hip Manual Muscle Testing Left Flexion (L2) 4 Good Extension (S1) 4 Good Abduction 4 Good Adduction 4 Good Comments No change from 01/09 pre-op visit RE: 3+/5 for all 04/21/24: 4/5 for all Knee Strength Knee Manual Muscle Testing Right Flexion (S2) 4 Good Extension (L3) 4 Good Left Flexion (S2) 4 Good Extension (L3) 4 Good Comments 01/09 pre-operative: 3+/5 post-op: 3/5 03/12/24: 4-/5 04/21/24: 4/5 for all PT-OP-Q Treatments Start: 01/10/24 10:30 Freq: Status: Active Protocol: Document 04/21/24 13:46 NM (Rec: 04/21/24 14:32 NM [id number]) Gym Equipment Shuttle Recovery L squat Details w/ towel flex for gapping and level 1 band Resistance 25# teal Reps/Time 10x2 Therapeutic Exercises Supine Exercises ten stretch Supine Exercise Name trialed in PT; HEP Side left Reps/Minutes 3x20 ea Comments reports good feedback w/ stretch in low doses; v tight L side knee flexion Supine Exercise Name mobilization w/ towel for PA gap Side left Reps/Minutes 10x2 Other Exercises 6 MWT Reps/Minutes 1090 ft Comments no AD Manual Therapy Treatment Consent Patient gave verbal consent for manual Yes treatment Soft Tissue Mobilization L knee Body Location swelling mgmt, TFL, quad, HS, calf, ITB Mobilization Type Rolling,Strumming,Sustained Pressure,Trigger Point Release Intensity/Depth Superficial Body Position Hooklying Comments Gentle distal > proximal STM for swelling management. Gentle superficial mobilization of medial knee, quad, HS, and TFL. Trigger points present at TFL/hip flexors, very tender to touch, mild reduction with manual tx . Has pocket of swelling behind medial-posterior knee, distal hamstring. Increased overall swelling but no redness Joint Mobilizations L knee Joint tibiofemoral Direction PA/AP w/ inf glide, slight distraction and tibial IR Grade III Body Position Sitting Reps/Duration 3x10 Comments PT supporting pt LLE on shoulder for slight distraction and then tibial IR with translation into flexion along with post glide. Good feedback for mobilization, improved ROM to 114 deg post manual Self-Care/Home Management Treatment Education Other Education Educated on using compression (from toes to thigh) during day if upright for swelling. Continued recommendation for use of spc in community if knee does start to buckle PT-OP-R Modalities Start: 02/19/24 12:05 Freq: Status: Active Protocol: Document 02/21/24 11:33 NM (Rec: 02/21/24 12:23 NM [id number]) Electric Stimulation Electric Stimulation Jamaican Intensity 12 Frequency 50 Contraction Type Normal Ramp 2.0 Patient Position Hooklying Comments Performed 5/5 today for better ot confort.Skin assessed before, during prior. Sensation intact. Performed with quad set (towel under knee), quad set (towel under ankle), SAQ (foam roller) PT-OP-T Assessment and Plan Start: 01/10/24 10:30 Freq: Status: Active Protocol: Document 04/21/24 13:46 NM (Rec: 04/21/24 14:32 NM [id number]) Physical Therapy Assessment Goals Five Impairment knee flexion/extension strength 3/5 post-op Machine Operator General Goal (LTG) Pt will improve L knee flexion and extension strength to at least 4+/5 MMT in order to demonstrate increased strength required for balance, gait, and ADLs 03/12/24: 4-/5 MMT 04/21/24: 4/5 MMT for all LTG Duration 12 weeks 05/09/24- PROGRESSING 04/21/24 Four Impairment pain with transfers into car, tub, STS Short Term Goal (STG) Pt will report <3/10 L knee pain with transfers in/out of car or tub in order to demonstrate improvements in L knee AROM and pain management 03/12/24: pt continue to report pain 4/10 with car transfer 03/25/2024 pt reports pain can get up to an 8/10. STG Duration 6 weeks 03/28/24 Machine Operator General Goal (LTG) Pt will improve 5x STS time to 12.6 sec or better from standard chair without increase in L knee pain in order to demonstrate improved knee flexion for transfers and BLE strength 03/25/24: 13.1 secs, has on pain or increase in pain. 04/21/24: 10.4 sec LTG Duration 12 weeks 05/09/24 MET Three Impairment not performing HEP Short Term Goal (STG) Pt will be issued HEP and report compliance 2-3x/wk in order to maximize progression with PT 03/12/24: daily compliance STG Duration 3 weeks MET Machine Operator General Goal (LTG) Pt will report compliance with HEP 3x/wk in order to transition to maintenance program and maintain progress made during PT 04/21/24: performing HEP daily LTG Duration 12 05/09/24 - PROGRESSING 04/21/24 Two Impairment pre-op 6 MWT distance 1094 ft; post op 664 ft w/ spc Short Term Goal (STG) Pt will normalize gait mechanics at least community distances without AD if appropriate in order to demonstrate increased independence with mobility similar to pre-operative mobility 03/12/24: household ambulation with antalgic gait and no AD, limited knee flex 04/21/24: prn community mobility with spc STG Duration 5 weeks 03/21/24 PROGRESSING Machine Operator General Goal (LTG) Pt will be ambulate >1200 ft ( age-related norm) post op without AD if appropriate in order to demonstrate improved activity tolerance, strength, and ability to return to walks several miles long 04/21/24: 1090 ft LTG Duration 12 weeks 05/09/24- PROGRESSING 04/21/24 One Impairment pre-op L knee ROM 118-8; post op 90-11 deg Short Term Goal (STG) Pt will improve L knee AROM to at least 100 deg flexion and lacking 5 deg extension or less deg in order to improve knee mobility during sitting, gait, and stair 03/12/24: 111 deg flex post manual, lacking 3 deg 03/25:110 flex post bike, 3 deg post bike. STG Duration 6 weeks 03/28/24 MET Shelter Goal (LTG) Pt will improve L knee AROM to at least 120 deg flex and 2 deg extension or less post- operatively in order to improve knee mobility during gait and stairs 04/18/2024: Knee flex ~115D. 04/21/24: 107 deg flex premanual, 114 deg flex post manual; lacking 2 deg ext LTG Duration 12 weeks 05/09/24- PROGRESSING 04/21/24 Assessment Summary Assessment Pt reports less pain in L knee at end of session, but still has increased tenderness overall. Slightly swollen compared to RLE. Initiated hip flexor stretching in supine, whcih pt has increased limitations in L side than R side. Pt has increased trigger points at her hip flexors, quad, and TFL which are tender and reduced with soft tissue mobilization but not resolved. Pt still has poor tolerance for exercise and progressions with PT. Introduced knee flexion gapping with towel in sitting and on leg press to promote better mobility at L knee. Physical Therapy Plan Frequency and Duration Frequency of Treatment 2x/Week Duration of treatment (weeks) 12 Plan of Care Start Date 02/14/24 Plan of Care End Date 05/09/24 Therapeutic Interventions Therapeutic Interventions Balance Training,Gait Training ,Home Exercise Program,Joint Mobilizations,Manual Therapy, Neuromuscular Re-education, Orthotic/Prosthetic Management ,Patient/Caregiver Education, Self-Care/Home Management, Sensory Integration,Soft Tissue Mobilization,Taping, Therapeutic Activities, Therapeutic Exercises Modalities Cold Pack/Ice Massage,Electric Stimulation,Hot Packs, Vasopneumatic Devices Next Visit Focus/Plan Next Note Type Treatment Note Next Visit Plan Plan to extend plan of care visit Do not erase: Leg press (low load LLE - can do w/ towel gap ), knee flexion gapping w/ towel, standing stair flexion mobilization. cont with quad/ glute strength (leg press, TKE w/ band, SLR, hip 3 way if mono vs slider with abd/squat. calf stretch on stairs. ankle DF mobilization. progress to stairs Manual: STM as needed kamaljit to quad, HS, TFL, ITB; knee flexion jt mobilization ( sitting with tibial IR); can do TrP w/ Belkis if appropriate. Improve ROM
--- NOTE | 2024-04-25 16:42 | PT.OTN ---
Current Diagnoses Unilateral primary osteoarthritis, left knee (04/25/24) Stiffness of left knee, not elsewhere classified (04/25/24) Other lack of coordination (04/25/24) Weakness (04/25/24) Physical Therapy Treatment Note PT-OP-A Visit Information Start: 01/10/24 10:30 Freq: Status: Active Protocol: Document 04/25/24 14:32 TS (Rec: 04/25/24 16:42 TS [id number]) Out-Patient Physical Therapy Visit Information Visit Information Visit Type Treatment Note Visit Note s/p L TKA 01/11/24 Visit Start Time 14:32 Visit Stop Time 15:15 Visit Number 16 Number of IMPORT MANAGER Visits 1 Evaluation Information Evaluation Date 01/10/24 Precautions Precautions DOS L TKA 01/11/24 PMH diabetes II PT-OP-B Current Condition Start: 01/10/24 10:30 Freq: Status: Active Protocol: Document 02/14/24 13:42 NM (Rec: 02/14/24 14:32 NM [id number]) Current Condition History of Current Condition Onset Date DOS 01/11/24 Current Complaints pain, mobility History of Current Condition 02/14/24: Pt now s/p L TKA. PT just had HHPT, reports went well. She has been doing her exercises everyday. Pt reports pain with getting in/out of car, sitting in car, ambulating, stairs. Has been going on walks 1/4 mi a few times, up and moving around house. Pt has been ambulating at home without spc in R hand. States 6/10 L knee pain at rest, 8/10 with movement; states worse at night. Only taking acetominophen for pain, orn takes ocycodone (bed time ). Has been using spc for about 2 weeks. 01/10/24: Pt will be having a L TKA tomorrow 01/10/[address] Rebollar. Pt has had fluid taken off several times, cortisone, hyaluronic acid to help with injections. Pt reports no difficulty with her R knee. She has 3 steps into home, rail on R side to enter; single story home. Pt presents with FWW. She has not been using an AD prior to surgery. Pt lives alone but her daughter lives in the same town; hoping daughter will help. Pt reports that she has aches in the back of her L leg (calf). Pt reports that the walker can fit in her home. She has a shower bar in her shower, none for toilet (low toilet). She is planning to be in hospital overnight. Treatment Goals Patient/Caregiver Goals walking a couple miles/day ( flat), back to yoga (a couple times/wk) PT-OP-C Subjective Start: 01/10/24 10:30 Freq: Status: Active Protocol: Document 04/25/24 14:32 TS (Rec: 04/25/24 16:42 TS [id number]) OP-PT Subjective Patient Comments Patient Comments Pt reports not being able to push clutch in on truck. Eliminated some of her HEP exercises. She does not have her 3 month follow-up appointment with surgeon yet. PT-OP-D Balance Start: 01/10/24 10:30 Freq: Status: Active Protocol: Document 02/14/24 13:42 NM (Rec: 02/14/24 16:12 NM [id number]) Balance Tests Single Limb Standing Single Limb- Right 4 seconds Single Limb- Left 1 second with pain Tandem Tandem Standing 15 seconds PT-OP-E Functional Tests Start: 01/10/24 10:30 Freq: Status: Active Protocol: Document 02/14/24 13:42 NM (Rec: 02/14/24 14:32 NM [id number]) Functional Tests 6 Minute Walk Test Distance 02/13: 664 ft; 01/09: 1094 ft Device Used 02/13: spc; 01/09: no AD Comments 02/13, 01/09: pain in L knee Five Times Sit to Stand Test Score 02/14/24: 15.37 sec, 01/09: 16. 8 sec Comments painful, LLE more forward PT-OP-F Manual Assessment Start: 01/10/24 10:30 Freq: Status: Active Protocol: Document 02/14/24 13:42 NM (Rec: 02/14/24 15:41 NM [id number]) Manual Assessments Soft Tissue Assessment Soft Tissue Mobility Assessment Tightness of anterior knee over scar. Restrictions of L hamstring and quad, calf Joint Mobility Assessment Joint Mobility Assessment Hypomobility of L knee, pain with knee flexion especially anterior over scar. Tendency for L hip ER as position of comfort PT-OP-G Mobility & Gait Start: 01/10/24 10:30 Freq: Status: Active Protocol: Document 02/14/24 13:42 NM (Rec: 02/14/24 15:41 NM [id number]) OP Mobility Evaluation Transfers Sit to Stand No UE assist from 18 but [address] LLE more forward than RLE OP Gait Assessment Gait Gait Assistance Required: Standby Assistance Distance (Feet) 664 Assistive Devices Assistive Device Gait Belt,Straight Cane Gait Deviations General Gait Pattern Antalgic Factors Limiting Gait Function Factors Limiting Gait Function Decreased Strength,Pain Comments Gait Comments Tendency for L hip ER with stance and swing if not using spc, then more neutral. Has very stiff L stance, minimal knee flexion even with cueing. Pre-opo: 1094 ft without AD PT-OP-H Neuro Start: 01/10/24 10:30 Freq: Status: Active Protocol: Document 02/14/24 13:42 NM (Rec: 02/14/24 16:12 NM [id number]) Sensation Evaluation Comments Summary Comments Will assess formally next session Increased sensitivity around/ on incision and on either side of L knee PT-OP-J Posture/Palpation/Skin Start: 01/10/24 10:30 Freq: Status: Active Protocol: Document 02/14/24 13:42 NM (Rec: 02/14/24 15:41 NM [id number]) Posture Evaluation Position Standing Head/C-Spine Posture Forward Head T-Spine Posture Increased Kyphosis Shoulder Posture (L) Rounded,(R) Rounded Pelvis Posture Anteriorly Tilted Weight Distribution Weight Shifted Right Hip Posture (R) Neutral,(L) Externally Rotated Knee Posture (L) Genu Valgus,(R) Genu Valgus Palpation Assessment Location L knee Palpation Details Tenderness along medial and lateral knee Increased sensitivity along scar, medial and lateral knee Increased tightness of calf, hamstrings, quads, hip flexores Skin Assessment Incisional Assessment Incision Appearance/Comments Incision intact, pink, clean and dry. No signs of infection or DVT, only reported tenderness of proximal calf. Over incision, leftover adhesive from bandage present PT-OP-K Range of Motion Start: 01/10/24 10:30 Freq: Status: Active Protocol: Document 04/21/24 13:46 NM (Rec: 04/21/24 14:32 NM [id number]) Knee Goniometric Range of Motion Knee Right Flexion Active (degrees) 120 Extension Active (degrees) 2 Left Flexion Active (degrees) 107 Extension Active (degrees) 2 Comments Pre-operative: 118 deg knee flexion, lacking 8 deg extension; Post op: 90 deg flex, lacking 11 deg ext 03/12/24: 105 deg flex start of session (111 post manual) and lacking 3 deg extension 04/21/24: 107 deg flex at start of session (114 deg post manual), lacking 2 deg ext PT-OP-M Strength Start: 01/10/24 10:30 Freq: Status: Active Protocol: Document 04/21/24 13:46 NM (Rec: 04/21/24 14:32 NM [id number]) Hip Strength Hip Manual Muscle Testing Left Flexion (L2) 4 Good Extension (S1) 4 Good Abduction 4 Good Adduction 4 Good Comments No change from 01/09 pre-op visit RE: 3+/5 for all 04/21/24: 4/5 for all Knee Strength Knee Manual Muscle Testing Right Flexion (S2) 4 Good Extension (L3) 4 Good Left Flexion (S2) 4 Good Extension (L3) 4 Good Comments 01/09 pre-operative: 3+/5 post-op: 3/5 03/12/24: 4-/5 04/21/24: 4/5 for all PT-OP-Q Treatments Start: 01/10/24 10:30 Freq: Status: Active Protocol: Document 04/25/24 14:32 TS (Rec: 04/25/24 16:42 TS [id number]) Gym Equipment Shuttle Recovery SL Squat Resistance #25 Reps/Time 2x10 B squat Resistance #50 Reps/Time x15 Therapeutic Exercises Sitting Exercises Self Knee Gap Reps/Minutes x10, 1 sec hold Comments Sitting on table with L knee flexed, towel used for feedback Standing Exercises 3 way-hip slider Side bilateral Reps/Minutes x5 Comments Requires handrial assist calf stretch Standing Exercise Name DORINA Reps/Minutes 3x30 knee flexion Standing Exercise Name Knee flex on step Side left Equipment Used 8 step Reps/Minutes 10x3 Comments cues to keep heel flat PT-OP-R Modalities Start: 02/19/24 12:05 Freq: Status: Active Protocol: Document 02/21/24 11:33 NM (Rec: 02/21/24 12:23 NM [id number]) Electric Stimulation Electric Stimulation Maur[place]ian Intensity 12 Frequency 50 Contraction Type Normal Ramp 2.0 Patient Position Hooklying Comments Performed 5/5 today for better ot confort.Skin assessed before, during prior. Sensation intact. Performed with quad set (towel under knee), quad set (towel under ankle), SAQ (foam roller) PT-OP-T Assessment and Plan Start: 01/10/24 10:30 Freq: Status: Active Protocol: Document 04/25/24 14:32 TS (Rec: 04/25/24 16:42 TS [id number]) Physical Therapy Assessment Goals Five Impairment knee flexion/extension strength 3/5 post-op [facility] Goal (LTG) Pt will improve L knee flexion and extension strength to at least 4+/5 MMT in order to demonstrate increased strength required for balance, gait, and ADLs 03/12/24: 4-/5 MMT 04/21/24: 4/5 MMT for all LTG Duration 12 weeks 05/09/24- PROGRESSING 04/21/24 Four Impairment pain with transfers into car, tub, STS Short Term Goal (STG) Pt will report <3/10 L knee pain with transfers in/out of car or tub in order to demonstrate improvements in L knee AROM and pain management 03/12/24: pt continue to report pain 4/10 with car transfer 03/25/2024 pt reports pain can get up to an 8/10. STG Duration 6 weeks 03/28/24 [facility] Goal (LTG) Pt will improve 5x STS time to 12.6 sec or better from standard chair without increase in L knee pain in order to demonstrate improved knee flexion for transfers and BLE strength 03/25/24: 13.1 secs, has on pain or increase in pain. 04/21/24: 10.4 sec LTG Duration 12 weeks 05/09/24 MET Three Impairment not performing HEP Short Term Goal (STG) Pt will be issued HEP and report compliance 2-3x/wk in order to maximize progression with PT 03/12/24: daily compliance STG Duration 3 weeks MET [facility] Goal (LTG) Pt will report compliance with HEP 3x/wk in order to transition to maintenance program and maintain progress made during PT 04/21/24: performing HEP daily LTG Duration 12 weeks 05/09/24 - PROGRESSING 04/21/24 Two Impairment pre-op 6 MWT distance 1094 ft; post op 664 ft w/ spc Short Term Goal (STG) Pt will normalize gait mechanics at least community distances without AD if appropriate in order to demonstrate increased independence with mobility similar to pre-operative mobility 03/12/24: household ambulation with antalgic gait and no AD, limited knee flex 04/21/24: prn community mobility with spc STG Duration 5 weeks 03/21/24 PROGRESSING Finishing Department Supervisor Goal (LTG) Pt will be ambulate >1200 ft ( age-related norm) post op without AD if appropriate in order to demonstrate improved activity tolerance, strength, and ability to return to walks several miles long 04/21/24: 1090 ft LTG Duration 12 weeks 05/09/24- PROGRESSING 04/21/24 One Impairment pre-op L knee ROM 118-8; post op 90-11 deg Short Term Goal (STG) Pt will improve L knee AROM to at least 100 deg flexion and lacking 5 deg extension or less deg in order to improve knee mobility during sitting, gait, and stair 03/12/24: 111 deg flex post manual, lacking 3 deg 03/25:110 flex post bike, 3 deg post bike. STG Duration 6 weeks 03/28/24 MET [facility] Goal (LTG) Pt will improve L knee AROM to at least 120 deg flex and 2 deg extension or less post- operatively in order to improve knee mobility during gait and stairs 04/18/2024: Knee flex ~115D. 04/21/24: 107 deg flex premanual, 114 deg flex post manual; lacking 2 deg ext LTG Duration 12 weeks 05/09/24- PROGRESSING 04/21/24 Assessment Summary Assessment Pt continues to have discomfort in flexing knee and is slightly swollen. Pt feeling more comfortable with knee flexion gapping with towel, she was having discomfort at home. Treatment focused on knee flexion and strengthening. She continues to have low tolerance to exercise. Physical Therapy Plan Next Visit Focus/Plan Next Note Type Treatment Note Next Visit Plan Plan to extend plan of care visit Next: continue stretching, knee flexion, assess carryover of 3 way hip slider. Do not erase: Leg press (low load LLE - can do w/ towel gap ), knee flexion gapping w/ towel, standing stair flexion mobilization. cont with quad/ glute strength (leg press, TKE w/ band, SLR, hip 3 way if mono vs slider with abd/squat. calf stretch on stairs. ankle DF mobilization. progress to stairs Manual: STM as needed kamaljit to quad, HS, TFL, ITB; knee flexion jt mobilization ( sitting with tibial IR); can do TrP w/ Belkis if appropriate. Improve ROM
--- NOTE | 2024-05-02 15:45 | PT.OTN ---
Current Diagnoses Unilateral primary osteoarthritis, left knee (05/02/24) Stiffness of left knee, not elsewhere classified (05/02/24) Other lack of coordination (05/02/24) Weakness (05/02/24) Physical Therapy Treatment Note PT-OP-A Visit Information Start: 01/10/24 10:30 Freq: Status: Active Protocol: Document 05/02/24 13:15 AB (Rec: 05/02/24 15:44 AB [id number]) Out-Patient Physical Therapy Visit Information Visit Information Visit Type Treatment Note Visit Note s/p L TKA 01/11/24 Visit Start Time 13:49 Visit Stop Time 14:33 Visit Number 17 Number of TURRET LATHE TENDER Visits 2 Evaluation Information Evaluation Date 01/10/24 Precautions Precautions DOS L TKA 01/11/24 PMH diabetes II PT-OP-B Current Condition Start: 01/10/24 10:30 Freq: Status: Active Protocol: Document 02/14/24 13:42 NM (Rec: 02/14/24 14:32 NM [id number]) Current Condition History of Current Condition Onset Date DOS 01/11/24 Current Complaints pain, mobility History of Current Condition 02/14/24: Pt now s/p L TKA. PT just had HHPT, reports went well. She has been doing her exercises everyday. Pt reports pain with getting in/out of car, sitting in car, ambulating, stairs. Has been going on walks 1/4 mi a few times, up and moving around house. Pt has been ambulating at home without spc in R hand. States 6/10 L knee pain at rest, 8/10 with movement; states worse at night. Only taking acetominophen for pain, orn takes ocycodone (bed time ). Has been using spc for about 2 weeks. 01/10/24: Pt will be having a L TKA tomorrow 01/10/[address] Rebollar. Pt has had fluid taken off several times, cortisone, hyaluronic acid to help with injections. Pt reports no difficulty with her R knee. She has 3 steps into home, rail on R side to enter; single story home. Pt presents with FWW. She has not been using an AD prior to surgery. Pt lives alone but her daughter lives in the same town; hoping daughter will help. Pt reports that she has aches in the back of her L leg (calf). Pt reports that the walker can fit in her home. She has a shower bar in her shower, none for toilet (low toilet). She is planning to be in hospital overnight. Treatment Goals Patient/Caregiver Goals walking a couple miles/day ( flat), back to yoga (a couple times/wk) PT-OP-C Subjective Start: 01/10/24 10:30 Freq: Status: Active Protocol: Document 05/02/24 13:15 AB (Rec: 05/02/24 15:44 AB [id number]) OP-PT Subjective Patient Comments Patient Comments Patient reports the knee isn't really bothering unless she sits at the table for dinner for increased time then has stiffness and an ache, also car rides for any length of time. Patient reports random sharp pain inside of knee with ambulationg ~6X a week. Pt ambulates with left LE ER at hip. SLS left LE 2 sec with ipsilateral trunk side bend. Lacking 5 deg ext to 106 deg flexion AROM left knee PT-OP-D Balance Start: 01/10/24 10:30 Freq: Status: Active Protocol: Document 02/14/24 13:42 NM (Rec: 02/14/24 16:12 NM [id number]) Balance Tests Single Limb Standing Single Limb- Right 4 seconds Single Limb- Left 1 second with pain Tandem Tandem Standing 15 seconds PT-OP-E Functional Tests Start: 01/10/24 10:30 Freq: Status: Active Protocol: Document 02/14/24 13:42 NM (Rec: 02/14/24 14:32 NM [id number]) Functional Tests 6 Minute Walk Test Distance 02/13: 664 ft; 01/09: 1094 ft Device Used 02/13: spc; 01/09: no AD Comments 02/13, 01/09: pain in L knee Five Times Sit to Stand Test Score 02/14/24: 15.37 sec, 01/09: 16. 8 sec Comments painful, LLE more forward PT-OP-F Manual Assessment Start: 01/10/24 10:30 Freq: Status: Active Protocol: Document 02/14/24 13:42 NM (Rec: 02/14/24 15:41 NM [id number]) Manual Assessments Soft Tissue Assessment Soft Tissue Mobility Assessment Tightness of anterior knee over scar. Restrictions of L hamstring and quad, calf Joint Mobility Assessment Joint Mobility Assessment Hypomobility of L knee, pain with knee flexion especially anterior over scar. Tendency for L hip ER as position of comfort PT-OP-G Mobility & Gait Start: 01/10/24 10:30 Freq: Status: Active Protocol: Document 02/14/24 13:42 NM (Rec: 02/14/24 15:41 NM [id number]) OP Mobility Evaluation Transfers Sit to Stand No UE assist from 18 but [address] LLE more forward than RLE OP Gait Assessment Gait Gait Assistance Required: Standby Assistance Distance (Feet) 664 Assistive Devices Assistive Device Gait Belt,Straight Cane Gait Deviations General Gait Pattern Antalgic Factors Limiting Gait Function Factors Limiting Gait Function Decreased Strength,Pain Comments Gait Comments Tendency for L hip ER with stance and swing if not using spc, then more neutral. Has very stiff L stance, minimal knee flexion even with cueing. Pre-opo: 1094 ft without AD PT-OP-H Neuro Start: 01/10/24 10:30 Freq: Status: Active Protocol: Document 02/14/24 13:42 NM (Rec: 02/14/24 16:12 NM [id number]) Sensation Evaluation Comments Summary Comments Will assess formally next session Increased sensitivity around/ on incision and on either side of L knee PT-OP-J Posture/Palpation/Skin Start: 01/10/24 10:30 Freq: Status: Active Protocol: Document 02/14/24 13:42 NM (Rec: 02/14/24 15:41 NM [id number]) Posture Evaluation Position Standing Head/C-Spine Posture Forward Head T-Spine Posture Increased Kyphosis Shoulder Posture (L) Rounded,(R) Rounded Pelvis Posture Anteriorly Tilted Weight Distribution Weight Shifted Right Hip Posture (R) Neutral,(L) Externally Rotated Knee Posture (L) Genu Valgus,(R) Genu Valgus Palpation Assessment Location L knee Palpation Details Tenderness along medial and lateral knee Increased sensitivity along scar, medial and lateral knee Increased tightness of calf, hamstrings, quads, hip flexores Skin Assessment Incisional Assessment Incision Appearance/Comments Incision intact, pink, clean and dry. No signs of infection or DVT, only reported tenderness of proximal calf. Over incision, leftover adhesive from bandage present PT-OP-K Range of Motion Start: 01/10/24 10:30 Freq: Status: Active Protocol: Document 04/21/24 13:46 NM (Rec: 04/21/24 14:32 NM [id number]) Knee Goniometric Range of Motion Knee Right Flexion Active (degrees) 120 Extension Active (degrees) 2 Left Flexion Active (degrees) 107 Extension Active (degrees) 2 Comments Pre-operative: 118 deg knee flexion, lacking 8 deg extension; Post op: 90 deg flex, lacking 11 deg ext 03/12/24: 105 deg flex start of session (111 post manual) and lacking 3 deg extension 04/21/24: 107 deg flex at start of session (114 deg post manual), lacking 2 deg ext PT-OP-M Strength Start: 01/10/24 10:30 Freq: Status: Active Protocol: Document 04/21/24 13:46 NM (Rec: 04/21/24 14:32 NM [id number]) Hip Strength Hip Manual Muscle Testing Left Flexion (L2) 4 Good Extension (S1) 4 Good Abduction 4 Good Adduction 4 Good Comments No change from 01/09 pre-op visit RE: 3+/5 for all 04/21/24: 4/5 for all Knee Strength Knee Manual Muscle Testing Right Flexion (S2) 4 Good Extension (L3) 4 Good Left Flexion (S2) 4 Good Extension (L3) 4 Good Comments 01/09 pre-operative: 3+/5 post-op: 3/5 03/12/24: 4-/5 04/21/24: 4/5 for all PT-OP-Q Treatments Start: 01/10/24 10:30 Freq: Status: Active Protocol: Document 05/02/24 13:15 AB (Rec: 05/02/24 15:44 AB [id number]) Therapeutic Exercises Supine Exercises stretches Supine Exercise Name 1. gravity assisted 2 (HEP) piriformis Side left Reps/Minutes 1.2 min 2. one min L knee flexion Supine Exercise Name on ball Side left Reps/Minutes bilat 3 min then X 10 with level one band at ankle Comments verbal cues Sitting Exercises seated hip abduction with band Sitting Exercise Name HEP Side bilateral Resistance alatna green level 3 band Reps/Minutes one min hold X 1 Comments verbal cues Standing Exercises calf stretch Standing Exercise Name standing with UE support Side left Reps/Minutes 30 sec X 2 each stretch Comments soleus and gastroc, Verbal cues Manual Therapy Treatment Consent Patient gave verbal consent for manual Yes treatment Soft Tissue Mobilization L knee Body Location left quad and HS Mobilization Type Cross-Friction,Rolling, Strumming,Sustained Pressure Intensity/Depth Moderate Body Position Hooklying Comments and superfical Joint Mobilizations L ankle Joint MWM TC joint mob Direction AP Grade III Body Position Standing Reps/Duration X10 PT-OP-R Modalities Start: 02/19/24 12:05 Freq: Status: Active Protocol: Document 02/21/24 11:33 NM (Rec: 02/21/24 12:23 NM [id number]) Electric Stimulation Electric Stimulation Romanian Intensity 12 Frequency 50 Contraction Type Normal Ramp 2.0 Patient Position Hooklying Comments Performed 5/5 today for better ot confort.Skin assessed before, during prior. Sensation intact. Performed with quad set (towel under knee), quad set (towel under ankle), SAQ (foam roller) PT-OP-T Assessment and Plan Start: 01/10/24 10:30 Freq: Status: Active Protocol: Document 05/02/24 13:15 AB (Rec: 05/02/24 15:44 AB [id number]) Physical Therapy Assessment Goals Five Impairment knee flexion/extension strength 3/5 post-op Residential Goal (LTG) Pt will improve L knee flexion and extension strength to at least 4+/5 MMT in order to demonstrate increased strength required for balance, gait, and ADLs 03/12/24: 4-/5 MMT 04/21/24: 4/5 MMT for all LTG Duration 12 weeks 05/09/24- PROGRESSING 04/21/24 Four Impairment pain with transfers into car, tub, STS Short Term Goal (STG) Pt will report <3/10 L knee pain with transfers in/out of car or tub in order to demonstrate improvements in L knee AROM and pain management 03/12/24: pt continue to report pain 4/10 with car transfer 03/25/2024 pt reports pain can get up to an 8/10. STG Duration 6 weeks 03/28/24 Solar Sales Assessor Goal (LTG) Pt will improve 5x STS time to 12.6 sec or better from standard chair without increase in L knee pain in order to demonstrate improved knee flexion for transfers and BLE strength 03/25/24: 13.1 secs, has on pain or increase in pain. 04/21/24: 10.4 sec LTG Duration 12 weeks 05/09/24 MET Three Impairment not performing HEP Short Term Goal (STG) Pt will be issued HEP and report compliance 2-3x/wk in order to maximize progression with PT 03/12/24: daily compliance STG Duration 3 weeks MET Solar Sales Assessor Goal (LTG) Pt will report compliance with HEP 3x/wk in order to transition to maintenance program and maintain progress made during PT 04/21/24: performing HEP daily LTG Duration 12 05/09/24 - PROGRESSING 04/21/24 Two Impairment pre-op 6 MWT distance 1094 ft; post op 664 ft w/ spc Short Term Goal (STG) Pt will normalize gait mechanics at least community distances without AD if appropriate in order to demonstrate increased independence with mobility similar to pre-operative mobility 03/12/24: household ambulation with antalgic gait and no AD, limited knee flex 04/21/24: prn community mobility with spc STG Duration 5 weeks 03/21/24 PROGRESSING Residential Goal (LTG) Pt will be ambulate >1200 ft ( age-related norm) post op without AD if appropriate in order to demonstrate improved activity tolerance, strength, and ability to return to walks several miles long 04/21/24: 1090 ft LTG Duration 05/09/24- PROGRESSING 04/21/24 One Impairment pre-op L knee ROM 118-8; post op 90-11 deg Short Term Goal (STG) Pt will improve L knee AROM to at least 100 deg flexion and lacking 5 deg extension or less deg in order to improve knee mobility during sitting, gait, and stair 03/12/24: 111 deg flex post manual, lacking 3 deg 03/25:110 flex post bike, 3 deg post bike. STG Duration 6 weeks 03/28/24 MET Solar Sales Assessor Goal (LTG) Pt will improve L knee AROM to at least 120 deg flex and 2 deg extension or less post- operatively in order to improve knee mobility during gait and stairs 04/18/2024: Knee flex ~115D. 04/21/24: 107 deg flex premanual, 114 deg flex post manual; lacking 2 deg ext LTG Duration 12 weeks 05/09/24- PROGRESSING 04/21/24 Assessment Summary Assessment 116 deg AROM left knee post manual and exercise, rates left knee pain 06/02 end of session, and a awareness of TC area left ankle/not pain per patient Physical Therapy Plan Next Visit Focus/Plan Next Note Type Treatment Note Next Visit Plan Plan to extend plan of care visit Next: continue stretching, knee flexion, assess carryover of 3 way hip slider. Do not erase: Leg press (low load LLE - can do w/ towel gap ), knee flexion gapping w/ towel, standing stair flexion mobilization. cont with quad/ glute strength (leg press, TKE w/ band, SLR, hip 3 way if mono vs slider with abd/squat. calf stretch on stairs. ankle DF mobilization. progress to stairs Manual: STM as needed kamaljit to quad, HS, TFL, ITB; knee flexion jt mobilization ( sitting with tibial IR); can do TrP w/ Belkis if appropriate. Improve ROM
--- NOTE | 2024-05-07 15:38 | PT.OTN ---
Current Diagnoses Unilateral primary osteoarthritis, left knee (05/07/24) Stiffness of left knee, not elsewhere classified (05/07/24) Other lack of coordination (05/07/24) Weakness (05/07/24) Physical Therapy Treatment Note PT-OP-A Visit Information Start: 01/10/24 10:30 Freq: Status: Active Protocol: Document 05/07/24 13:50 NM (Rec: 05/07/24 14:33 NM [id number]) Out-Patient Physical Therapy Visit Information Visit Information Visit Type Progress Note Visit Note s/p L TKA 01/11/24 Visit Start Time 13:50 Visit Stop Time 14:30 Visit Number 18 Evaluation Information Evaluation Date 01/10/24 Precautions Precautions DOS L TKA 01/11/24 PMH diabetes II PT-OP-B Current Condition Start: 01/10/24 10:30 Freq: Status: Active Protocol: Document 02/14/24 13:42 NM (Rec: 02/14/24 14:32 NM [id number]) Current Condition History of Current Condition Onset Date DOS 01/11/24 Current Complaints pain, mobility History of Current Condition 02/14/24: Pt now s/p L TKA. PT just had HHPT, reports went well. She has been doing her exercises everyday. Pt reports pain with getting in/out of car, sitting in car, ambulating, stairs. Has been going on walks 1/4 mi a few times, up and moving around house. Pt has been ambulating at home without spc in R hand. States 6/10 L knee pain at rest, 8/10 with movement; states worse at night. Only taking acetominophen for pain, orn takes ocycodone (bed time ). Has been using spc for about 2 weeks. 01/10/24: Pt will be having a L TKA tomorrow 01/10/[address] Rebollar. Pt has had fluid taken off several times, cortisone, hyaluronic acid to help with injections. Pt reports no difficulty with her R knee. She has 3 steps into home, rail on R side to enter; single story home. Pt presents with FWW. She has not been using an AD prior to surgery. Pt lives alone but her daughter lives in the same town; hoping daughter will help. Pt reports that she has aches in the back of her L leg (calf). Pt reports that the walker can fit in her home. She has a shower bar in her shower, none for toilet (low toilet). She is planning to be in hospital overnight. Treatment Goals Patient/Caregiver Goals walking a couple miles/day ( flat), back to yoga (a couple times/wk) PT-OP-C Subjective Start: 01/10/24 10:30 Freq: Status: Active Protocol: Document 05/07/24 13:50 NM (Rec: 05/07/24 14:33 NM [id number]) OP-PT Subjective Patient Comments Patient Comments Pt reports new exercises make her knee hurt because has to pull to chest, along with knee mobilization with towel. She report keep her from sleeping last night. States better getting out of shower especially if focuses on her knee flexion without circumduction but still knee flexion ROM still limiting. Knee flexion mobility on stairs is helping, feels better; riding bike also feels better. Has achiness that just does not go away. No instances of knee buckling any more. PT-OP-D Balance Start: 01/10/24 10:30 Freq: Status: Active Protocol: Document 02/14/24 13:42 NM (Rec: 02/14/24 16:12 NM [id number]) Balance Tests Single Limb Standing Single Limb- Right 4 seconds Single Limb- Left 1 second with pain Tandem Tandem Standing 15 seconds PT-OP-E Functional Tests Start: 01/10/24 10:30 Freq: Status: Active Protocol: Document 02/14/24 13:42 NM (Rec: 02/14/24 14:32 NM [id number]) Functional Tests 6 Minute Walk Test Distance 02/13: 664 ft; 01/09: 1094 ft Device Used 02/13: spc; 01/09: no AD Comments 02/13, 01/09: pain in L knee Five Times Sit to Stand Test Score 02/14/24: 15.37 sec, 01/09: 16. 8 sec Comments painful, LLE more forward PT-OP-F Manual Assessment Start: 01/10/24 10:30 Freq: Status: Active Protocol: Document 02/14/24 13:42 NM (Rec: 02/14/24 15:41 NM [id number]) Manual Assessments Soft Tissue Assessment Soft Tissue Mobility Assessment Tightness of anterior knee over scar. Restrictions of L hamstring and quad, calf Joint Mobility Assessment Joint Mobility Assessment Hypomobility of L knee, pain with knee flexion especially anterior over scar. Tendency for L hip ER as position of comfort PT-OP-G Mobility & Gait Start: 01/10/24 10:30 Freq: Status: Active Protocol: Document 02/14/24 13:42 NM (Rec: 02/14/24 15:41 NM [id number]) OP Mobility Evaluation Transfers Sit to Stand No UE assist from 18 but places LLE more forward than RLE OP Gait Assessment Gait Gait Assistance Required: Standby Assistance Distance (Feet) 664 Assistive Devices Assistive Device Gait Belt,Straight Cane Gait Deviations General Gait Pattern Antalgic Factors Limiting Gait Function Factors Limiting Gait Function Decreased Strength,Pain Comments Gait Comments Tendency for L hip ER with stance and swing if not using spc, then more neutral. Has very stiff L stance, minimal knee flexion even with cueing. Pre-opo: 1094 ft without AD PT-OP-H Neuro Start: 01/10/24 10:30 Freq: Status: Active Protocol: Document 02/14/24 13:42 NM (Rec: 02/14/24 16:12 NM [id number]) Sensation Evaluation Comments Summary Comments Will assess formally next session Increased sensitivity around/ on incision and on either side of L knee PT-OP-J Posture/Palpation/Skin Start: 01/10/24 10:30 Freq: Status: Active Protocol: Document 02/14/24 13:42 NM (Rec: 02/14/24 15:41 NM [id number]) Posture Evaluation Position Standing Head/C-Spine Posture Forward Head T-Spine Posture Increased Kyphosis Shoulder Posture (L) Rounded,(R) Rounded Pelvis Posture Anteriorly Tilted Weight Distribution Weight Shifted Right Hip Posture (R) Neutral,(L) Externally Rotated Knee Posture (L) Genu Valgus,(R) Genu Valgus Palpation Assessment Location L knee Palpation Details Tenderness along medial and lateral knee Increased sensitivity along scar, medial and lateral knee Increased tightness of calf, hamstrings, quads, hip flexores Skin Assessment Incisional Assessment Incision Appearance/Comments Incision intact, pink, clean and dry. No signs of infection or DVT, only reported tenderness of proximal calf. Over incision, leftover adhesive from bandage present PT-OP-K Range of Motion Start: 01/10/24 10:30 Freq: Status: Active Protocol: Document 05/07/24 13:50 NM (Rec: 05/07/24 14:33 NM [id number]) Knee Goniometric Range of Motion Knee Right Flexion Active (degrees) 120 Extension Active (degrees) 2 Left Flexion Active (degrees) 112 Extension Active (degrees) 0 Comments Pre-operative: 118 deg knee flexion, lacking 8 deg extension; Post op: 90 deg flex, lacking 11 deg ext 03/12/24: 105 deg flex start of session (111 post manual) and lacking 3 deg extension 04/21/24: 107 deg flex at start of session (114 deg post manual), lacking 2 deg ext 05/07/24: 0 deg ext, 112 deg flex (115 deg post 6MWT) PT-OP-M Strength Start: 01/10/24 10:30 Freq: Status: Active Protocol: Document 05/07/24 13:50 NM (Rec: 05/07/24 14:33 NM [id number]) Knee Strength Knee Manual Muscle Testing Right Flexion (S2) 4 Good Extension (L3) 4 Good Left Flexion (S2) 4 Good Extension (L3) 4+ Good+ Comments 01/09 pre-operative: 3+/5 post-op: 3/5 03/12/24: 4-/5 04/21/24: 4/5 for all 05/07/24: 4/5 flex, 4+/5 ext MMT; no pain PT-OP-Q Treatments Start: 01/10/24 10:30 Freq: Status: Active Protocol: Document 05/07/24 13:50 NM (Rec: 05/07/24 14:33 NM [id number]) Therapeutic Exercises Supine Exercises stretches Supine Exercise Name HEP review piriformis Side left Reps/Minutes 2x30 Comments cueing for set up, adjust positioning of knee for pain mgmt Sitting Exercises seated hip abduction with band Sitting Exercise Name edu to do before daily ambulation for balance LAQ Sitting Exercise Name HEP Side bilateral Resistance level 1 band at ankles Reps/Minutes 2x10 Comments end of session Standing Exercises Sidestepping Standing Exercise Name lateral stepping- HEP Side bilateral Resistance level 3 band at thighs above knees Reps/Minutes 2x25 ft Comments cued for neutral foot placement, foot clearance step up Standing Exercise Name 6 step up- HEP Side bilateral Equipment Used 1 hand rail on R for balance only Reps/Minutes 15 ea leg Comments no pain knee flexion Standing Exercise Name Knee flex on step mobilization Side left Equipment Used 6 step Reps/Minutes 10x3 Comments cues to keep heel flat Other Exercises 6 MWT Reps/Minutes 1069 ft Comments knee flexion improved 115 deg post test Self-Care/Home Management Treatment Education Other Education Recommended use of 1 trek pole during ambulation on unstable ground due to concerns about falling PT-OP-R Modalities Start: 02/19/24 12:05 Freq: Status: Active Protocol: Document 02/21/24 11:33 NM (Rec: 02/21/24 12:23 NM [id number]) Electric Stimulation Electric Stimulation [place] Intensity 12 Frequency 50 Contraction Type Normal Ramp 2.0 Patient Position Hooklying Comments Performed 5/5 today for better ot confort.Skin assessed before, during prior. Sensation intact. Performed with quad set (towel under knee), quad set (towel under ankle), SAQ (foam roller) PT-OP-T Assessment and Plan Start: 01/10/24 10:30 Freq: Status: Active Protocol: Document 05/07/24 13:50 NM (Rec: 05/07/24 14:33 NM [id number]) Physical Therapy Assessment Goals Five Impairment knee flexion/extension strength 3/5 post-op Engraver Automatic Goal (LTG) Pt will improve L knee flexion and extension strength to at least 4+/5 MMT in order to demonstrate increased strength required for balance, gait, and ADLs 03/12/24: 4-/5 MMT 04/21/24: 4/5 MMT for all 05/07/24: 4/5 knee flex, 4+/5 MMT knee ext LTG Duration 8 weeks 07/04/24- PROGRESSING Four Impairment pain with transfers into car, tub, STS Short Term Goal (STG) Pt will report <3/10 L knee pain with transfers in/out of car or tub in order to demonstrate improvements in L knee AROM and pain management 03/12/24: pt continue to report pain 4/10 with car transfer 03/25/2024 pt reports pain can get up to an 8/10. STG Duration 6 weeks 03/28/24 Penitentiary Goal (LTG) Pt will improve 5x STS time to 12.6 sec or better from standard chair without increase in L knee pain in order to demonstrate improved knee flexion for transfers and BLE strength 03/25/24: 13.1 secs, has on pain or increase in pain. 04/21/24: 10.4 sec LTG Duration 12 weeks 05/09/24 MET Three Impairment not performing HEP Short Term Goal (STG) Pt will be issued HEP and report compliance 2-3x/wk in order to maximize progression with PT 03/12/24: daily compliance STG Duration 3 weeks MET Penitentiary Goal (LTG) Pt will report compliance with HEP 3x/wk in order to transition to maintenance program and maintain progress made during PT 04/21/24: performing HEP daily LTG Duration 12 weeks 05/09/24 - MET Two Impairment pre-op 6 MWT distance 1094 ft; post op 664 ft w/ spc Short Term Goal (STG) Pt will normalize gait mechanics at least community distances without AD if appropriate in order to demonstrate increased independence with mobility similar to pre-operative mobility 03/12/24: household ambulation with antalgic gait and no AD, limited knee flex 04/21/24: prn community mobility with spc STG Duration 5 weeks 03/21/24 PROGRESSING Engraver Automatic Goal (LTG) Pt will be ambulate >1200 ft ( age-related norm) post op without AD if appropriate in order to demonstrate improved activity tolerance, strength, and ability to return to walks several miles long 04/21/24: 1090 ft 03/07/25: 1069 ft LTG Duration 8 weeks- 07/04/24; NOT MET 05/07 One Impairment pre-op L knee ROM 118-8; post op 90-11 deg Short Term Goal (STG) Pt will improve L knee AROM to at least 100 deg flexion and lacking 5 deg extension or less deg in order to improve knee mobility during sitting, gait, and stair 03/12/24: 111 deg flex post manual, lacking 3 deg 03/25:110 flex post bike, 3 deg post bike. STG Duration 6 weeks 03/28/24 MET Penitentiary Goal (LTG) Pt will improve L knee AROM to at least 115 deg flex and maintain 0 deg extension or less post-operatively in order to improve knee mobility during gait and stairs 04/18/2024: Knee flex ~115D. 04/21/24: 107 deg flex premanual, 114 deg flex post manual; lacking 2 deg ext 05/07/24: 112 deg flex, 0 deg ext LTG Duration 8 weeks 07/04/24- PROGRESSING Assessment Summary Assessment Pt continues to feel like L knee is achy at end of session but demos improvement from 112 deg L knee flex to 115 deg L knee flex following 6 MWT. Still below age-related norm for 6 MWT but gait speed and mechanics improve with increased time. Modified stretches provided in previous session HEP for comfort with education on form and time management during stretching for pain management. Good progression to step up for quad/glute strengthening and improved quad control with knee alignment upon eccentric lowering. Good tolerance during session for progressions with bands to therapeutic exercise on STS and lateral stepping. Physical Therapy Plan Frequency and Duration Frequency of Treatment 1-2x/wk Duration of treatment (weeks) 8 Plan of Care Start Date 05/07/24 Plan of Care End Date 07/04/24 Therapeutic Interventions Therapeutic Interventions Balance Training,Gait Training ,Home Exercise Program,Joint Mobilizations,Manual Therapy, Neuromuscular Re-education, Orthotic/Prosthetic Management ,Patient/Caregiver Education, Self-Care/Home Management, Sensory Integration,Soft Tissue Mobilization,Taping, Therapeutic Activities, Therapeutic Exercises Modalities Cold Pack/Ice Massage,Electric Stimulation,Hot Packs, Vasopneumatic Devices Next Visit Focus/Plan Next Note Type Treatment Note Next Visit Plan Step up and stair training with control, hand rail as needed. Focus on knee flexion ROM and carryover. Cont with hip 3 way. Assess mono to modification with stretches/ updated HEP. 6 MWT ea session Next: continue stretching as needed, knee flexion ROM, assess carryover of 3 way hip slider. Leg press (low load LLE - can do w/ towel gap), knee flexion gapping w/ towel, standing stair flexion mobilization. cont with quad/ glute strength (leg press, TKE w/ band, SLR with weight, hip 3 way if mono vs slider with abd/squat. calf stretch on stairs. ankle DF mobilization. Bike as needed for ROM/warm up Manual: STM as needed kamaljit to quad, HS, TFL, ITB; knee flexion jt mobilization ( sitting with tibial IR); can do TrP w/ Belkis if appropriate. Improve ROM
--- NOTE | 2024-05-07 15:38 | PT.OPPOC ---
Physical, Occupational & Speech Therapy At Current Diagnoses Unilateral primary osteoarthritis, left knee (05/07/24) Stiffness of left knee, not elsewhere classified (05/07/24) Other lack of coordination (05/07/24) Weakness (05/07/24) Visit Care Team Role Provider Type Jovan Nichols MD Family Provider Physician Primary Care Provider Specialty: Family Practice Address: [address] [place] [address], [id number] Email: [email or web address] Adama Rebollar MD Attending Provider Physician Referring Provider Specialty: Orthopedics Orthopedic Surgery Address: [address] [place] [address], [id number] Email: [email or web address] Plan Of Care PT-OP-B Current Condition Start: 01/10/24 10:30 Freq: Status: Active Protocol: Document 02/14/24 13:42 NM (Rec: 02/14/24 14:32 NM [id number]) Current Condition History of Current Condition Onset Date DOS 01/11/24 Current Complaints pain, mobility History of Current Condition 02/14/24: Pt now s/p L TKA. PT just had HHPT, reports went well. She has been doing her exercises everyday. Pt reports pain with getting in/out of car, sitting in car, ambulating, stairs. Has been going on walks 1/4 mi a few times, up and moving around house. Pt has been ambulating at home without spc in R hand. States 6/10 L knee pain at rest, 8/10 with movement; states worse at night. Only taking acetominophen for pain, orn takes ocycodone (bed time ). Has been using spc for about 2 weeks. 01/10/24: Pt will be having a L TKA tomorrow 01/10/[address] Rebollar. Pt has had fluid taken off several times, cortisone, hyaluronic acid to help with injections. Pt reports no difficulty with her R knee. She has 3 steps into home, rail on R side to enter; single story home. Pt presents with FWW. She has not been using an AD prior to surgery. Pt lives alone but her daughter lives in the same town; hoping daughter will help. Pt reports that she has aches in the back of her L leg (calf). Pt reports that the walker can fit in her home. She has a shower bar in her shower, none for toilet (low toilet). She is planning to be in hospital overnight. Treatment Goals Patient/Caregiver Goals walking a couple miles/day ( flat), back to yoga (a couple times/wk) PT-OP-T Assessment and Plan Start: 01/10/24 10:30 Freq: Status: Active Protocol: Document 05/07/24 13:50 NM (Rec: 05/07/24 14:33 NM [id number]) Physical Therapy Assessment Goals Five Impairment knee flexion/extension strength 3/5 post-op Halfway Goal (LTG) Pt will improve L knee flexion and extension strength to at least 4+/5 MMT in order to demonstrate increased strength required for balance, gait, and ADLs 03/12/24: 4-/5 MMT 04/21/24: 4/5 MMT for all 05/07/24: 4/5 knee flex, 4+/5 MMT knee ext LTG Duration 8 weeks 07/04/24- PROGRESSING Four Impairment pain with transfers into car, tub, STS Short Term Goal (STG) Pt will report <3/10 L knee pain with transfers in/out of car or tub in order to demonstrate improvements in L knee AROM and pain management 03/12/24: pt continue to report pain 4/10 with car transfer 03/25/2024 pt reports pain can get up to an 8/10. STG Duration 6 weeks 03/28/24 Tankage Grinder Goal (LTG) Pt will improve 5x STS time to 12.6 sec or better from standard chair without increase in L knee pain in order to demonstrate improved knee flexion for transfers and BLE strength 03/25/24: 13.1 secs, has on pain or increase in pain. 04/21/24: 10.4 sec LTG Duration 12 weeks 05/09/24 MET Three Impairment not performing HEP Short Term Goal (STG) Pt will be issued HEP and report compliance 2-3x/wk in order to maximize progression with PT 03/12/24: daily compliance STG Duration 3 weeks MET Halfway Goal (LTG) Pt will report compliance with HEP 3x/wk in order to transition to maintenance program and maintain progress made during PT 04/21/24: performing HEP daily LTG Duration 12 weeks 05/09/24 - MET Two Impairment pre-op 6 MWT distance 1094 ft; post op 664 ft w/ spc Short Term Goal (STG) Pt will normalize gait mechanics at least community distances without AD if appropriate in order to demonstrate increased independence with mobility similar to pre-operative mobility 03/12/24: household ambulation with antalgic gait and no AD, limited knee flex 04/21/24: prn community mobility with spc STG Duration 5 weeks 03/21/24 PROGRESSING Halfway Goal (LTG) Pt will be ambulate >1200 ft ( age-related norm) post op without AD if appropriate in order to demonstrate improved activity tolerance, strength, and ability to return to walks several miles long 04/21/24: 1090 ft 03/07/25: 1069 ft LTG Duration 8 weeks- 07/04/24; NOT MET 05/07 One Impairment pre-op L knee ROM 118-8; post op 90-11 deg Short Term Goal (STG) Pt will improve L knee AROM to at least 100 deg flexion and lacking 5 deg extension or less deg in order to improve knee mobility during sitting, gait, and stair 03/12/24: 111 deg flex post manual, lacking 3 deg 03/25:110 flex post bike, 3 deg post bike. STG Duration 6 weeks 03/28/24 MET Tankage Grinder Goal (LTG) Pt will improve L knee AROM to at least 115 deg flex and maintain 0 deg extension or less post-operatively in order to improve knee mobility during gait and stairs 04/18/2024: Knee flex ~115D. 04/21/24: 107 deg flex premanual, 114 deg flex post manual; lacking 2 deg ext 05/07/24: 112 deg flex, 0 deg ext LTG Duration 8 weeks 07/04/24- PROGRESSING Assessment Summary Assessment Pt had L TKA on December 2023 . She is progressing slowly toward goals. Pt demos improvements in L knee ROM and strength. However, she continues to lack knee flexion consistently above 110 deg which restricts pt's ability to tolerate sitting for extended periods especially as needed for transportation on ferry/car and to transfer in/ out of shower. Still below age -related norms for 6 MWT, indicating decreased endurance and strength. Pt is compliant with HEP. Her swelling is reduced. Pt has limited progression with PT due to decreased activity tolerance and pain management with exercise. Planning to decrease frequency to 1x/wk for continued strengthening. MJ would continue to benefit from skilled PT to improve L knee ROM and strength to improve activity tolerance, ability to transfer, and decrease pain levels. Physical Therapy Plan Frequency and Duration Frequency of Treatment 1-2x/wk Duration of treatment (weeks) 8 Plan of Care Start Date 05/07/24 Plan of Care End Date 07/04/24 Therapeutic Interventions Therapeutic Interventions Balance Training,Gait Training ,Home Exercise Program,Joint Mobilizations,Manual Therapy, Neuromuscular Re-education, Orthotic/Prosthetic Management ,Patient/Caregiver Education, Self-Care/Home Management, Sensory Integration,Soft Tissue Mobilization,Taping, Therapeutic Activities, Therapeutic Exercises Modalities Cold Pack/Ice Massage,Electric Stimulation,Hot Packs, Vasopneumatic Devices Next Visit Focus/Plan Next Note Type Treatment Note Next Visit Plan Step up and stair training with control, hand rail as needed. Focus on knee flexion ROM and carryover. Cont with hip 3 way. Assess mono to modification with stretches/ updated HEP. 6 MWT ea session Next: continue stretching as needed, knee flexion ROM, assess carryover of 3 way hip slider. Leg press (low load LLE - can do w/ towel gap), knee flexion gapping w/ towel, standing stair flexion mobilization. cont with quad/ glute strength (leg press, TKE w/ band, SLR with weight, hip 3 way if mono vs slider with abd/squat. calf stretch on stairs. ankle DF mobilization. Bike as needed for ROM/warm up Manual: STM as needed kamaljit to quad, HS, TFL, ITB; knee flexion jt mobilization ( sitting with tibial IR); can do TrP w/ Belkis if appropriate. Improve ROM Plan of Care Dates Plan of Care Start Date 05/07/24 Plan of Care End Date 07/04/24 Electronically Signed by: Genny Stein, PT 05/07/24 0167 If you are in agreement with this Plan of Care, please return a signed and dated copy. I have reviewed this Plan of Care and certify that the skilled therapy services above are required to meet the patient?s needs. Physician Signature Date Printed Name and Credentials Clinical Instructor Signature Printed Name and Credentials
--- NOTE | 2024-05-09 12:46 | PT.OTN ---
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 PT just had HHPT, reports went well. She has been doing her exercises everyday. Pt reports pain with getting in/out of car, sitting in car, ambulating, stairs. Has been going on walks 1/4 mi a few times, up and moving around house. Pt has been ambulating at home without spc in R hand. States 6/10 L knee pain at rest, 8/10 with movement; states worse at night. Only taking acetominophen for pain, orn takes ocycodone (bed time ). Has been using spc for about 2 weeks. 01/10/24: Pt will be having a L TKA tomorrow 01/10/[address] Rebollar. Pt has had fluid taken off several times, cortisone, hyaluronic acid to help with injections. Pt reports no difficulty with her R knee. She has 3 steps into home, rail on R side to enter; single story home. Pt presents with FWW. She has not been using an AD prior to surgery. Pt lives alone but her daughter lives in the same town; hoping daughter will help. Pt reports that she has aches in the back of her L leg (calf). Pt reports that the walker can fit in her home. She has a shower bar in her shower, none for toilet (low toilet). She is planning to be in hospital overnight. Treatment Goals Patient/Caregiver Goals walking a couple miles/day ( flat), back to yoga (a couple times/wk) PT-OP-C Subjective Start: 01/10/24 10:30 Freq: Status: Active Protocol: Document 05/09/24 12:29 NBM (Rec: 05/09/24 12:46 NBM [id number]) OP-PT Subjective Patient Comments Patient Comments MJ reports she thinks she doing new ex's wrong especially Fig. 4 stretch because her leg feels like lead today and lots more pain in the L knee. Shivam stretch feels good. She brings her HEP handouts to review. PT-OP-D Balance Start: 01/10/24 10:30 Freq: Status: Active Protocol: Document 02/14/24 13:42 NM (Rec: 02/14/24 16:12 NM [id number]) Balance Tests Single Limb Standing Single Limb- Right 4 seconds Single Limb- Left 1 second with pain Tandem Tandem Standing 15 seconds PT-OP-E Functional Tests Start: 01/10/24 10:30 Freq: Status: Active Protocol: Document 02/14/24 13:42 NM (Rec: 02/14/24 14:32 NM [id number]) Functional Tests 6 Minute Walk Test Distance 02/13: 664 ft; 01/09: 1094 ft Device Used 02/13: spc; 01/09: no AD Comments 02/13, 01/09: pain in L knee Five Times Sit to Stand Test Score 02/14/24: 15.37 sec, 01/09: 16. 8 sec Comments painful, LLE more forward PT-OP-F Manual Assessment Start: 01/10/24 10:30 Freq: Status: Active Protocol: Document 02/14/24 13:42 NM (Rec: 02/14/24 15:41 NM [id number]) Manual Assessments Soft Tissue Assessment Soft Tissue Mobility Assessment Tightness of anterior knee over scar. Restrictions of L hamstring and quad, calf Joint Mobility Assessment Joint Mobility Assessment Hypomobility of L knee, pain with knee flexion especially anterior over scar. Tendency for L hip ER as position of comfort PT-OP-G Mobility & Gait Start: 01/10/24 10:30 Freq: Status: Active Protocol: Document 02/14/24 13:42 NM (Rec: 02/14/24 15:41 NM [id number]) OP Mobility Evaluation Transfers Sit to Stand No UE assist from 18 but places LLE more forward than RLE OP Gait Assessment Gait Gait Assistance Required: Standby Assistance Distance (Feet) 664 Assistive Devices Assistive Device Gait Belt,Straight Cane Gait Deviations General Gait Pattern Antalgic Factors Limiting Gait Function Factors Limiting Gait Function Decreased Strength,Pain Comments Gait Comments Tendency for L hip ER with stance and swing if not using spc, then more neutral. Has very stiff L stance, minimal knee flexion even with cueing. Pre-opo: 1094 ft without AD PT-OP-H Neuro Start: 01/10/24 10:30 Freq: Status: Active Protocol: Document 02/14/24 13:42 NM (Rec: 02/14/24 16:12 NM [id number]) Sensation Evaluation Comments Summary Comments Will assess formally next session Increased sensitivity around/ on incision and on either side of L knee PT-OP-J Posture/Palpation/Skin Start: 01/10/24 10:30 Freq: Status: Active Protocol: Document 02/14/24 13:42 NM (Rec: 02/14/24 15:41 NM [id number]) Posture Evaluation Position Standing Head/C-Spine Posture Forward Head T-Spine Posture Increased Kyphosis Shoulder Posture (L) Rounded,(R) Rounded Pelvis Posture Anteriorly Tilted Weight Distribution Weight Shifted Right Hip Posture (R) Neutral,(L) Externally Rotated Knee Posture (L) Genu Valgus,(R) Genu Valgus Palpation Assessment Location L knee Palpation Details Tenderness along medial and lateral knee Increased sensitivity along scar, medial and lateral knee Increased tightness of calf, hamstrings, quads, hip flexores Skin Assessment Incisional Assessment Incision Appearance/Comments Incision intact, pink, clean and dry. No signs of infection or DVT, only reported tenderness of proximal calf. Over incision, leftover adhesive from bandage present PT-OP-K Range of Motion Start: 01/10/24 10:30 Freq: Status: Active Protocol: Document 05/07/24 13:50 NM (Rec: 05/07/24 14:33 NM [id number]) Knee Goniometric Range of Motion Knee Right Flexion Active (degrees) 120 Extension Active (degrees) 2 Left Flexion Active (degrees) 112 Extension Active (degrees) 0 Comments Pre-operative: 118 deg knee flexion, lacking 8 deg extension; Post op: 90 deg flex, lacking 11 deg ext 03/12/24: 105 deg flex start of session (111 post manual) and lacking 3 deg extension 04/21/24: 107 deg flex at start of session (114 deg post manual), lacking 2 deg ext 05/07/24: 0 deg ext, 112 deg flex (115 deg post 6MWT) PT-OP-M Strength Start: 01/10/24 10:30 Freq: Status: Active Protocol: Document 05/07/24 13:50 NM (Rec: 05/07/24 14:33 NM [id number]) Knee Strength Knee Manual Muscle Testing Right Flexion (S2) 4 Good Extension (L3) 4 Good Left Flexion (S2) 4 Good Extension (L3) 4+ Good+ Comments 01/09 pre-operative: 3+/5 post-op: 3/5 03/12/24: 4-/5 04/21/24: 4/5 for all 05/07/24: 4/5 flex, 4+/5 ext MMT; no pain PT-OP-Q Treatments Start: 01/10/24 10:30 Freq: Status: Active Protocol: Document 05/09/24 12:29 NBM (Rec: 05/09/24 12:46 NBM [id number]) Therapeutic Exercises Supine Exercises stretches Supine Exercise Name HEP review piriformis - modified from Fig 4 to Knee to opp shoulder Side bilateral Reps/Minutes x30 ea Comments pain with mod Fig 4, Knee to opp delisa pain-free shivam stretch Supine Exercise Name HEP Side left Reps/Minutes 2x20 ea Comments reports good feedback w/ stretch in low doses; v tight L side heel slide Side left Reps/Minutes x10 with breathwork Sitting Exercises seated hip abduction with band Sitting Exercise Name HEP verbal review only STS Sitting Exercise Name HEP Resistance Lvl 2 Tb above knees Equipment Used standard mesh chair Reps/Minutes 2x10 Comments cues for LE alignment, hip hinge, glute squeeze LAQ Sitting Exercise Name HEP Side bilateral Resistance level 2 band at ankles Reps/Minutes x10 ea with breathwork Comments cues for neutral foot position Standing Exercises Sidestepping Standing Exercise Name lateral stepping- HEP Side bilateral Resistance level 3 band at thighs above knees Reps/Minutes 2x25 ft Comments cued for neutral foot placement, foot clearance calf stretch Standing Exercise Name HEP: at wall w/ UE support: gastroc, soleus Side left Reps/Minutes 30 sec X 2 each stretch Comments visual aids for gastroc/soleus , vc neutral foot step up Standing Exercise Name 6 step up- HEP Side bilateral Equipment Used R hand rail balance only, block for biofeedback foot position Reps/Minutes 15 ea leg Comments no pain w/ cues for neutral foot, hip width knee flexion Standing Exercise Name Knee flex on step mobilization Side left Equipment Used 6 step Reps/Minutes 10x3 Comments cues to keep neutral foot bilaterally Self-Care/Home Management Treatment Education Patient Education Body Mechanics,Home Exercise Program,Pain Management,Safety Other Education -edu w/ visual aids for gastroc/soleus m anatomy and role of stretching HEP. -edu to pt re: breathwork for pain guarding and management via parasympathetic n.s. activation. PT-OP-R Modalities Start: 02/19/24 12:05 Freq: Status: Active Protocol: Document 05/09/24 12:29 NB (Rec: 05/09/24 12:46 [facility] [id number]) Hot Pack/Cold Pack Treatment Cold Pack Location L knee (ant/post) Patient Position Hooklying Patient Tolerance Good Comments 8 min, end of session. LEs supported on bolster. PT-OP-T Assessment and Plan Start: 01/10/24 10:30 Freq: Status: Active Protocol: Document 05/09/24 12:29 NB (Rec: 05/09/24 12:46 [facility] [id number]) Physical Therapy Assessment Assessment Summary Assessment End of session supine L knee flexion AROM 115 deg, w/ overpressure and breathwork 126 deg. Pt requires cues for excessive hip rotation and neutral foot position with exercises. HEP review with this focus and pt reports decreased L knee pain throughout session. Ex cues noted on pt's HEP, and pt was also educated on breathwork for pain-management via parasympathetic n.s. activation. Figure 4 piriformis stretch modified to knee to opp shoulder due to L knee pain. Pt encouraged to try recumbent bike at home backwards. Physical Therapy Plan Frequency and Duration Frequency of Treatment 1-2x/wk Duration of treatment (weeks) 8 Plan of Care Start Date 05/07/24 Plan of Care End Date 07/04/24 Therapeutic Interventions Therapeutic Interventions Balance Training,Gait Training ,Home Exercise Program,Joint Mobilizations,Manual Therapy, Neuromuscular Re-education, Orthotic/Prosthetic Management ,Patient/Caregiver Education, Self-Care/Home Management, Sensory Integration,Soft Tissue Mobilization,Taping, Therapeutic Activities, Therapeutic Exercises Modalities Cold Pack/Ice Massage,Electric Stimulation,Hot Packs, Vasopneumatic Devices Next Visit Focus/Plan Next Note Type Treatment Note Next Visit Plan Ask pt about response to last treatment and home bike bwd. POC: Step up and stair training with control, hand rail as needed. Focus on knee flexion ROM and carryover. Cont with hip 3 way. Assess mono to modification with stretches/updated HEP. 6 MWT ea session Next: continue stretching as needed, knee flexion ROM, assess carryover of 3 way hip slider. Leg press (low load LLE - can do w/ towel gap), knee flexion gapping w/ towel, standing stair flexion mobilization. cont with quad/ glute strength (leg press, TKE w/ band, SLR with weight, hip 3 way if mono vs slider with abd/squat. calf stretch on stairs. ankle DF mobilization. Bike as needed for ROM/warm up Manual: STM as needed kamaljit to quad, HS, TFL, ITB; knee flexion jt mobilization ( sitting with tibial IR); can do TrP w/ Belkis if appropriate. Improve ROM
--- NOTE | 2024-05-13 16:00 | PT.OTN ---
Current Diagnoses Unilateral primary osteoarthritis, left knee (05/13/24) Stiffness of left knee, not elsewhere classified (05/13/24) Other lack of coordination (05/13/24) Weakness (05/13/24) Physical Therapy Treatment Note PT-OP-A Visit Information Start: 01/10/24 10:30 Freq: Status: Active Protocol: Document 05/13/24 13:53 NBM (Rec: 05/13/24 14:41 NBM [id number]) Out-Patient Physical Therapy Visit Information Visit Information Visit Type Treatment Note Visit Note s/p L TKA 01/11/24 Visit Start Time 13:50 Visit Stop Time 14:37 Visit Number 19 Number of STONE LAYER Visits 1 PT-OP-B Current Condition Start: 01/10/24 10:30 Freq: Status: Active Protocol: Document 02/14/24 13:42 NM (Rec: 02/14/24 14:32 NM [id number]) Current Condition History of Current Condition Onset Date DOS 01/11/24 Current Complaints pain, mobility History of Current Condition 02/14/24: Pt now s/p L TKA. PT just had HHPT, reports went well. She has been doing her exercises everyday. Pt reports pain with getting in/out of car, sitting in car, ambulating, stairs. Has been going on walks 1/4 mi a few times, up and moving around house. Pt has been ambulating at home without spc in R hand. States 6/10 L knee pain at rest, 8/10 with movement; states worse at night. Only taking acetominophen for pain, orn takes ocycodone (bed time ). Has been using spc for about 2 weeks. 01/10/24: Pt will be having a L TKA tomorrow 01/10/[address] Rebollar. Pt has had fluid taken off several times, cortisone, hyaluronic acid to help with injections. Pt reports no difficulty with her R knee. She has 3 steps into home, rail on R side to enter; single story home. Pt presents with FWW. She has not been using an AD prior to surgery. Pt lives alone but her daughter lives in the same town; hoping daughter will help. Pt reports that she has aches in the back of her L leg (calf). Pt reports that the walker can fit in her home. She has a shower bar in her shower, none for toilet (low toilet). She is planning to be in hospital overnight. Treatment Goals Patient/Caregiver Goals walking a couple miles/day ( flat), back to yoga (a couple times/wk) PT-OP-C Subjective Start: 01/10/24 10:30 Freq: Status: Active Protocol: Document 05/13/24 13:53 NBM (Rec: 05/13/24 14:41 NBM [id number]) OP-PT Subjective Patient Comments Patient Comments DORA reports she was aching after last session and L knee pain affected her the next day . Yesterday she did some walking, 10 min fwd and bwd each on recumbent bike, full HEP, yoga, all being mindful of keeping toes pointing forward, and she had L knee ache that kept her awake at night; her leg felt like lead and she tried ice and elevating and ended up taking tylenol. The L knee pain woke her up about 5:30am, but is currently about 1/10. She notices if she gets out of shower with left leg first over 6 lip it's easier. PT-OP-D Balance Start: 01/10/24 10:30 Freq: Status: Active Protocol: Document 02/14/24 13:42 NM (Rec: 02/14/24 16:12 NM [id number]) Balance Tests Single Limb Standing Single Limb- Right 4 seconds Single Limb- Left 1 second with pain Tandem Tandem Standing 15 seconds PT-OP-E Functional Tests Start: 01/10/24 10:30 Freq: Status: Active Protocol: Document 02/14/24 13:42 NM (Rec: 02/14/24 14:32 NM [id number]) Functional Tests 6 Minute Walk Test Distance 02/13: 664 ft; 01/09: 1094 ft Device Used 02/13: spc; 01/09: no AD Comments 02/13, 01/09: pain in L knee Five Times Sit to Stand Test Score 02/14/24: 15.37 sec, 01/09: 16. 8 sec Comments painful, LLE more forward PT-OP-F Manual Assessment Start: 01/10/24 10:30 Freq: Status: Active Protocol: Document 02/14/24 13:42 NM (Rec: 02/14/24 15:41 NM [id number]) Manual Assessments Soft Tissue Assessment Soft Tissue Mobility Assessment Tightness of anterior knee over scar. Restrictions of L hamstring and quad, calf Joint Mobility Assessment Joint Mobility Assessment Hypomobility of L knee, pain with knee flexion especially anterior over scar. Tendency for L hip ER as position of comfort PT-OP-G Mobility & Gait Start: 01/10/24 10:30 Freq: Status: Active Protocol: Document 02/14/24 13:42 NM (Rec: 02/14/24 15:41 NM [id number]) OP Mobility Evaluation Transfers Sit to Stand No UE assist from 18 but [address] LLE more forward than RLE OP Gait Assessment Gait Gait Assistance Required: Standby Assistance Distance (Feet) 664 Assistive Devices Assistive Device Gait Belt,Straight Cane Gait Deviations General Gait Pattern Antalgic Factors Limiting Gait Function Factors Limiting Gait Function Decreased Strength,Pain Comments Gait Comments Tendency for L hip ER with stance and swing if not using spc, then more neutral. Has very stiff L stance, minimal knee flexion even with cueing. Pre-opo: 1094 ft without AD PT-OP-H Neuro Start: 01/10/24 10:30 Freq: Status: Active Protocol: Document 02/14/24 13:42 NM (Rec: 02/14/24 16:12 NM [id number]) Sensation Evaluation Comments Summary Comments Will assess formally next session Increased sensitivity around/ on incision and on either side of L knee PT-OP-J Posture/Palpation/Skin Start: 01/10/24 10:30 Freq: Status: Active Protocol: Document 02/14/24 13:42 NM (Rec: 02/14/24 15:41 NM [id number]) Posture Evaluation Position Standing Head/C-Spine Posture Forward Head T-Spine Posture Increased Kyphosis Shoulder Posture (L) Rounded,(R) Rounded Pelvis Posture Anteriorly Tilted Weight Distribution Weight Shifted Right Hip Posture (R) Neutral,(L) Externally Rotated Knee Posture (L) Genu Valgus,(R) Genu Valgus Palpation Assessment Location L knee Palpation Details Tenderness along medial and lateral knee Increased sensitivity along scar, medial and lateral knee Increased tightness of calf, hamstrings, quads, hip flexores Skin Assessment Incisional Assessment Incision Appearance/Comments Incision intact, pink, clean and dry. No signs of infection or DVT, only reported tenderness of proximal calf. Over incision, leftover adhesive from bandage present PT-OP-K Range of Motion Start: 01/10/24 10:30 Freq: Status: Active Protocol: Document 05/07/24 13:50 NM (Rec: 05/07/24 14:33 NM [id number]) Knee Goniometric Range of Motion Knee Right Flexion Active (degrees) 120 Extension Active (degrees) 2 Left Flexion Active (degrees) 112 Extension Active (degrees) 0 Comments Pre-operative: 118 deg knee flexion, lacking 8 deg extension; Post op: 90 deg flex, lacking 11 deg ext 03/12/24: 105 deg flex start of session (111 post manual) and lacking 3 deg extension 04/21/24: 107 deg flex at start of session (114 deg post manual), lacking 2 deg ext 05/07/24: 0 deg ext, 112 deg flex (115 deg post 6MWT) PT-OP-M Strength Start: 01/10/24 10:30 Freq: Status: Active Protocol: Document 05/07/24 13:50 NM (Rec: 05/07/24 14:33 NM [id number]) Knee Strength Knee Manual Muscle Testing Right Flexion (S2) 4 Good Extension (L3) 4 Good Left Flexion (S2) 4 Good Extension (L3) 4+ Good+ Comments 01/09 pre-operative: 3+/5 post-op: 3/5 03/12/24: 4-/5 04/21/24: 4/5 for all 05/07/24: 4/5 flex, 4+/5 ext MMT; no pain PT-OP-Q Treatments Start: 01/10/24 10:30 Freq: Status: Active Protocol: Document 05/13/24 13:53 NBM (Rec: 05/13/24 14:41 NBM [id number]) Cardio Equipment Recumbent Bicycle Duration (Minutes) 10 Resistance 0 Seat Position 3 Other fwd/bwd/fwd/bwd warmup Gait Training Gait Activity normalized mechanics Description indoor/outdoor Device Used none Level of Assistance close SBA>CGA Surface pavement, gravel (flat, incline/decline), stairs Distance/Duration 882 ft (includes 40 ftx2 of marching on pavement) Treatment Focus hip/knee flexion, normalized mechanics Comments Pt ext rotates hip. Cues for heels apart instead of toes in resolves L knee discomfort with ambulating. Pt demonstrates slight circumduction gait at times and one RLE toe scuff on gravel incline. Pt demos step- to gait for stair descent w/ R handrail and cued for recip- able to perform but pain limited in L knee. hurdles Description 6 6 recip Device Used no AD, prn hand support for balance Level of Assistance close SBA with prn CGA to steady Surface firm Distance/Duration 6 hurdles Treatment Focus hip/knee flexion, upright posture, gluteal activation Comments 1. B feet btwn hurdles-not today 2. reciprocal pattern 10 ft x4 3. Sidestepping-not today With cues L circumduction compensation resolves and pt is able to clear all hurdles. Manual Therapy Treatment Consent Patient gave verbal consent for manual Yes treatment Soft Tissue Mobilization L knee Mobilization Type Instrument Assisted Intensity/Depth Moderate Body Position Sitting Comments rolling pin to quads, ITB, HS and calf. Self-Care/Home Management Treatment Education Patient Education Body Mechanics,Home Exercise Program,Pain Management,Safety Other Education -i/s pt in self-STM w/ rolling pin. -Shower mobility: 6 lip to enter/exit. Pt notices easier to clear lip with LLE first. Pt edu for increased hip flexion with LLE fwd due to L circumduction compensation, and to practice with RLE fwd with fully upright posture and gluteal activation for LLE clearance. -Pt edu for rail support on R for LLE support. -verbal review of breathwork for pain guarding. PT-OP-R Modalities Start: 02/19/24 12:05 Freq: Status: Active Protocol: Document 05/13/24 13:53 NBM (Rec: 05/14/24 11:27 [facility] [id number]) Hot Pack/Cold Pack Treatment Cold Pack Location L knee Comments to go disposable [place] ferry[place] PT-OP-T Assessment and Plan Start: 01/10/24 10:30 Freq: Status: Active Protocol: Document 05/13/24 13:53 NBM (Rec: 05/13/24 14:41 [facility] [id number]) Physical Therapy Assessment Goals Five Impairment knee flexion/extension strength 3/5 post-op Director Medical Writing Goal (LTG) Pt will improve L knee flexion and extension strength to at least 4+/5 MMT in order to demonstrate increased strength required for balance, gait, and ADLs 03/12/24: 4-/5 MMT 04/21/24: 4/5 MMT for all 05/07/24: 4/5 knee flex, 4+/5 MMT knee ext LTG Duration 8 weeks 07/04/24- PROGRESSING Four Impairment pain with transfers into car, tub, STS Short Term Goal (STG) Pt will report <3/10 L knee pain with transfers in/out of car or tub in order to demonstrate improvements in L knee AROM and pain management 03/12/24: pt continue to report pain 4/10 with car transfer 03/25/2024 pt reports pain can get up to an 8/10. STG Duration 6 weeks 03/28/24 Long-Term Goal (LTG) Pt will improve 5x STS time to 12.6 sec or better from standard chair without increase in L knee pain in order to demonstrate improved knee flexion for transfers and BLE strength 03/25/24: 13.1 secs, has on pain or increase in pain. 04/21/24: 10.4 sec LTG Duration 12 weeks 05/09/24 MET Three Impairment not performing HEP Short Term Goal (STG) Pt will be issued HEP and report compliance 2-3x/wk in order to maximize progression with PT 03/12/24: daily compliance STG Duration 3 weeks MET Director Medical Writing Goal (LTG) Pt will report compliance with HEP 3x/wk in order to transition to maintenance program and maintain progress made during PT 04/21/24: performing HEP daily LTG Duration 12 weeks 05/09/24 - MET Two Impairment pre-op 6 MWT distance 1094 ft; post op 664 ft w/ spc Short Term Goal (STG) Pt will normalize gait mechanics at least community distances without AD if appropriate in order to demonstrate increased independence with mobility similar to pre-operative mobility 03/12/24: household ambulation with antalgic gait and no AD, limited knee flex 04/21/24: prn community mobility with spc STG Duration 5 weeks 03/21/24 PROGRESSING Director Medical Writing Goal (LTG) Pt will be ambulate >1200 ft ( age-related norm) post op without AD if appropriate in order to demonstrate improved activity tolerance, strength, and ability to return to walks several miles long 04/21/24: 1090 ft 03/07/25: 1069 ft LTG Duration 8 weeks- 07/04/24; NOT MET 05/07 One Impairment pre-op L knee ROM 118-8; post op 90-11 deg Short Term Goal (STG) Pt will improve L knee AROM to at least 100 deg flexion and lacking 5 deg extension or less deg in order to improve knee mobility during sitting, gait, and stair 03/12/24: 111 deg flex post manual, lacking 3 deg 03/25:110 flex post bike, 3 deg post bike. STG Duration 6 weeks 03/28/24 MET Director Medical Writing Goal (LTG) Pt will improve L knee AROM to at least 115 deg flex and maintain 0 deg extension or less post-operatively in order to improve knee mobility during gait and stairs 04/18/2024: Knee flex ~115D. 04/21/24: 107 deg flex premanual, 114 deg flex post manual; lacking 2 deg ext 05/07/24: 112 deg flex, 0 deg ext LTG Duration 8 weeks 07/04/24- PROGRESSING Assessment Summary Assessment Pt presents with 1/10 L knee pain following increased activity yesterday and trouble falling asleep and staying asleep due to increased L knee pain. Treatment focus on pain management and normalizing gait mechanics. Cues for heels apart instead of toes in resolves L knee discomfort with indoor/outdoor ambulation , but her L knee pain increases with reciprocal stair descent today. Pt demos trunk and hip flexion with reciprocal gait during transition from LLE midstance to push-off for LLE clearance over obstacles; when cued for upright posture and gluteal activation she is able to consistently clear 6 hurdles reciprocally and is encouraged to practice exiting/entering shower over 6 lip with same cues and to avoid LLE circumduction compensation. She is challenged to perform stair descent reciprocally instead of step-to due to L knee pain. Pt instructed in LLE self-IASTM with rolling pin with positive feedback. Sent home with to-go ice pack to catch ferrshun. Physical Therapy Plan Frequency and Duration Frequency of Treatment 1-2x/wk Duration of treatment (weeks) 8 Plan of Care Start Date 05/07/24 Plan of Care End Date 07/04/24 Therapeutic Interventions Therapeutic Interventions Balance Training,Gait Training ,Home Exercise Program,Joint Mobilizations,Manual Therapy, Neuromuscular Re-education, Orthotic/Prosthetic Management ,Patient/Caregiver Education, Self-Care/Home Management, Sensory Integration,Soft Tissue Mobilization,Taping, Therapeutic Activities, Therapeutic Exercises Modalities Cold Pack/Ice Massage,Electric Stimulation,Hot Packs, Vasopneumatic Devices Next Visit Focus/Plan Next Note Type Treatment Note Next Visit Plan Have pt demo supine yoga stretch and modify as needed to improve LE posterior chain pain-free ROM. POC: Step up and stair training with control, hand rail as needed. Focus on knee flexion ROM and carryover. Cont with hip 3 way. Assess mono to modification with stretches/updated HEP. 6 MWT ea session Next: continue stretching as needed, knee flexion ROM, assess carryover of 3 way hip slider. Leg press (low load LLE - can do w/ towel gap), knee flexion gapping w/ towel, standing stair flexion mobilization. cont with quad/ glute strength (leg press, TKE w/ band, SLR with weight, hip 3 way if mono vs slider with abd/squat. calf stretch on stairs. ankle DF mobilization. Bike as needed for ROM/warm up Manual: STM as needed kamaljit to quad, HS, TFL, ITB; knee flexion jt mobilization ( sitting with tibial IR); can do TrP w/ Belkis if appropriate. Improve ROM
--- NOTE | 2024-05-22 15:44 | PT.OTN ---
Current Diagnoses Unilateral primary osteoarthritis, left knee (05/22/24) Stiffness of left knee, not elsewhere classified (05/22/24) Other lack of coordination (05/22/24) Weakness (05/22/24) Physical Therapy Treatment Note PT-OP-A Visit Information Start: 01/10/24 10:30 Freq: Status: Active Protocol: Document 05/22/24 13:47 NM (Rec: 05/22/24 14:31 NM [id number]) Out-Patient Physical Therapy Visit Information Visit Information Visit Type Treatment Note Visit Note s/p L TKA 01/11/24 Visit Start Time 13:48 Visit Stop Time 14:30 Visit Number 20 Evaluation Information Evaluation Date 01/10/24 Precautions Precautions DOS L TKA 01/11/24 PMH diabetes II PT-OP-B Current Condition Start: 01/10/24 10:30 Freq: Status: Active Protocol: Document 02/14/24 13:42 NM (Rec: 02/14/24 14:32 NM [id number]) Current Condition History of Current Condition Onset Date DOS 01/11/24 Current Complaints pain, mobility History of Current Condition 02/14/24: Pt now s/p L TKA. PT just had HHPT, reports went well. She has been doing her exercises everyday. Pt reports pain with getting in/out of car, sitting in car, ambulating, stairs. Has been going on walks 1/4 mi a few times, up and moving around house. Pt has been ambulating at home without spc in R hand. States 6/10 L knee pain at rest, 8/10 with movement; states worse at night. Only taking acetominophen for pain, orn takes ocycodone (bed time ). Has been using spc for about 2 weeks. 01/10/24: Pt will be having a L TKA tomorrow 01/10/[address] Rebollar. Pt has had fluid taken off several times, cortisone, hyaluronic acid to help with injections. Pt reports no difficulty with her R knee. She has 3 steps into home, rail on R side to enter; single story home. Pt presents with FWW. She has not been using an AD prior to surgery. Pt lives alone but her daughter lives in the same town; hoping daughter will help. Pt reports that she has aches in the back of her L leg (calf). Pt reports that the walker can fit in her home. She has a shower bar in her shower, none for toilet (low toilet). She is planning to be in hospital overnight. Treatment Goals Patient/Caregiver Goals walking a couple miles/day ( flat), back to yoga (a couple times/wk) PT-OP-C Subjective Start: 01/10/24 10:30 Freq: Status: Active Protocol: Document 05/22/24 13:47 NM (Rec: 05/22/24 14:31 NM [id number]) OP-PT Subjective Patient Comments Patient Comments Pt reports no pain today at start of session. Achy after last session. Exercises are going well (yoga 2x/wk, bikes those days, then PT exercises other days), reports that some days does not do exercises. has been forward and backward cycles. Going to [place] first of June, concerned about swelling with flying and sitting for long periods. PT-OP-D Balance Start: 01/10/24 10:30 Freq: Status: Active Protocol: Document 02/14/24 13:42 NM (Rec: 02/14/24 16:12 NM [id number]) Balance Tests Single Limb Standing Single Limb- Right 4 seconds Single Limb- Left 1 second with pain Tandem Tandem Standing 15 seconds PT-OP-E Functional Tests Start: 01/10/24 10:30 Freq: Status: Active Protocol: Document 02/14/24 13:42 NM (Rec: 02/14/24 14:32 NM [id number]) Functional Tests 6 Minute Walk Test Distance 02/13: 664 ft; 01/09: 1094 ft Device Used 02/13: spc; 01/09: no AD Comments 02/13, 01/09: pain in L knee Five Times Sit to Stand Test Score 02/14/24: 15.37 sec, 01/09: 16. 8 sec Comments painful, LLE more forward PT-OP-F Manual Assessment Start: 01/10/24 10:30 Freq: Status: Active Protocol: Document 02/14/24 13:42 NM (Rec: 02/14/24 15:41 NM [id number]) Manual Assessments Soft Tissue Assessment Soft Tissue Mobility Assessment Tightness of anterior knee over scar. Restrictions of L hamstring and quad, calf Joint Mobility Assessment Joint Mobility Assessment Hypomobility of L knee, pain with knee flexion especially anterior over scar. Tendency for L hip ER as position of comfort PT-OP-G Mobility & Gait Start: 01/10/24 10:30 Freq: Status: Active Protocol: Document 02/14/24 13:42 NM (Rec: 02/14/24 15:41 NM [id number]) OP Mobility Evaluation Transfers Sit to Stand No UE assist from 18 but [address] LLE more forward than RLE OP Gait Assessment Gait Gait Assistance Required: Standby Assistance Distance (Feet) 664 Assistive Devices Assistive Device Gait Belt,Straight Cane Gait Deviations General Gait Pattern Antalgic Factors Limiting Gait Function Factors Limiting Gait Function Decreased Strength,Pain Comments Gait Comments Tendency for L hip ER with stance and swing if not using spc, then more neutral. Has very stiff L stance, minimal knee flexion even with cueing. Pre-opo: 1094 ft without AD PT-OP-H Neuro Start: 01/10/24 10:30 Freq: Status: Active Protocol: Document 02/14/24 13:42 NM (Rec: 02/14/24 16:12 NM [id number]) Sensation Evaluation Comments Summary Comments Will assess formally next session Increased sensitivity around/ on incision and on either side of L knee PT-OP-J Posture/Palpation/Skin Start: 01/10/24 10:30 Freq: Status: Active Protocol: Document 02/14/24 13:42 NM (Rec: 02/14/24 15:41 NM [id number]) Posture Evaluation Position Standing Head/C-Spine Posture Forward Head T-Spine Posture Increased Kyphosis Shoulder Posture (L) Rounded,(R) Rounded Pelvis Posture Anteriorly Tilted Weight Distribution Weight Shifted Right Hip Posture (R) Neutral,(L) Externally Rotated Knee Posture (L) Genu Valgus,(R) Genu Valgus Palpation Assessment Location L knee Palpation Details Tenderness along medial and lateral knee Increased sensitivity along scar, medial and lateral knee Increased tightness of calf, hamstrings, quads, hip flexores Skin Assessment Incisional Assessment Incision Appearance/Comments Incision intact, pink, clean and dry. No signs of infection or DVT, only reported tenderness of proximal calf. Over incision, leftover adhesive from bandage present PT-OP-K Range of Motion Start: 01/10/24 10:30 Freq: Status: Active Protocol: Document 05/07/24 13:50 NM (Rec: 05/07/24 14:33 NM [id number]) Knee Goniometric Range of Motion Knee Right Flexion Active (degrees) 120 Extension Active (degrees) 2 Left Flexion Active (degrees) 112 Extension Active (degrees) 0 Comments Pre-operative: 118 deg knee flexion, lacking 8 deg extension; Post op: 90 deg flex, lacking 11 deg ext 03/12/24: 105 deg flex start of session (111 post manual) and lacking 3 deg extension 04/21/24: 107 deg flex at start of session (114 deg post manual), lacking 2 deg ext 05/07/24: 0 deg ext, 112 deg flex (115 deg post 6MWT) PT-OP-M Strength Start: 01/10/24 10:30 Freq: Status: Active Protocol: Document 05/07/24 13:50 NM (Rec: 05/07/24 14:33 NM [id number]) Knee Strength Knee Manual Muscle Testing Right Flexion (S2) 4 Good Extension (L3) 4 Good Left Flexion (S2) 4 Good Extension (L3) 4+ Good+ Comments 01/09 pre-operative: 3+/5 post-op: 3/5 03/12/24: 4-/5 04/21/24: 4/5 for all 05/07/24: 4/5 flex, 4+/5 ext MMT; no pain PT-OP-Q Treatments Start: 01/10/24 10:30 Freq: Status: Active Protocol: Document 05/22/24 13:47 NM (Rec: 05/22/24 14:31 NM [id number]) Gym Equipment Shuttle Recovery L squat Resistance 37# teal Reps/Time 3x12 Therapeutic Exercises Supine Exercises wall slides Supine Exercise Name HEP Side left Equipment Used R assist L Reps/Minutes 4x30 Comments for stair Standing Exercises stairs Standing Exercise Name 4 Side bilateral Equipment Used reciprocal up and down Reps/Minutes 4 sets x 6 stairs Comments limited L knee flex down step down Standing Exercise Name 4 step Side bilateral Equipment Used 1 hand support Reps/Minutes 2x8 L, 2x10 L Comments cued for hip hinge w/ knee flex on LLE knee flexion Standing Exercise Name to wall Side left Equipment Used hand support on brandon for balance Reps/Minutes 3x20 Manual Therapy Treatment Consent Patient gave verbal consent for manual Yes treatment Soft Tissue Mobilization L knee Body Location quad, HS, adductors Mobilization Type Rolling,Sustained Pressure, Trigger Point Release Intensity/Depth Moderate Body Position Supine Comments Trigger points, tenderness to adductors and hamstring. Edu to use fingers along with rolling pin for trigger points Joint Mobilizations L knee Joint tibiofemoral Direction post w/ inf glide, slight distraction and tibial IR Grade III Body Position Sitting Reps/Duration 20 Comments PT supporting leg, bias into flex with IR slight distraction with post glide. Improved to 118 deg post manual PT-OP-R Modalities Start: 02/19/24 12:05 Freq: Status: Active Protocol: Document 05/13/24 13:53 NBM (Rec: 05/14/24 11:27 NBM [id number]) Hot Pack/Cold Pack Treatment Cold Pack Location L knee Comments to go disposable [place] ferry[place] PT-OP-T Assessment and Plan Start: 01/10/24 10:30 Freq: Status: Active Protocol: Document 05/22/24 13:47 NM (Rec: 05/22/24 14:31 NM [id number]) Physical Therapy Assessment Goals Five Impairment knee flexion/extension strength 3/5 post-op Pipe And Test Supervisor Goal (LTG) Pt will improve L knee flexion and extension strength to at least 4+/5 MMT in order to demonstrate increased strength required for balance, gait, and ADLs 03/12/24: 4-/5 MMT 04/21/24: 4/5 MMT for all 05/07/24: 4/5 knee flex, 4+/5 MMT knee ext LTG Duration 8 weeks 07/04/24- PROGRESSING Four Impairment pain with transfers into car, tub, STS Short Term Goal (STG) Pt will report <3/10 L knee pain with transfers in/out of car or tub in order to demonstrate improvements in L knee AROM and pain management 03/12/24: pt continue to report pain 4/10 with car transfer 03/25/2024 pt reports pain can get up to an 8/10. STG Duration 6 weeks 03/28/24 Snf Goal (LTG) Pt will improve 5x STS time to 12.6 sec or better from standard chair without increase in L knee pain in order to demonstrate improved knee flexion for transfers and BLE strength 03/25/24: 13.1 secs, has on pain or increase in pain. 04/21/24: 10.4 sec LTG Duration 12 weeks 05/09/24 MET Three Impairment not performing HEP Short Term Goal (STG) Pt will be issued HEP and report compliance 2-3x/wk in order to maximize progression with PT 03/12/24: daily compliance STG Duration 3 weeks MET Pipe And Test Supervisor Goal (LTG) Pt will report compliance with HEP 3x/wk in order to transition to maintenance program and maintain progress made during PT 04/21/24: performing HEP daily LTG Duration 12 05/09/24 - MET Two Impairment pre-op 6 MWT distance 1094 ft; post op 664 ft w/ spc Short Term Goal (STG) Pt will normalize gait mechanics at least community distances without AD if appropriate in order to demonstrate increased independence with mobility similar to pre-operative mobility 03/12/24: household ambulation with antalgic gait and no AD, limited knee flex 04/21/24: prn community mobility with spc 05/22/24: no spc, minimal gait deviations STG Duration 5 weeks MET Pipe And Test Supervisor Goal (LTG) Pt will be ambulate >1200 ft ( age-related norm) post op without AD if appropriate in order to demonstrate improved activity tolerance, strength, and ability to return to walks several miles long 04/21/24: 1090 ft 03/07/25: 1069 ft LTG Duration 8 weeks- 07/04/24; NOT MET 05/07 One Impairment pre-op L knee ROM 118-8; post op 90-11 deg Short Term Goal (STG) Pt will improve L knee AROM to at least 100 deg flexion and lacking 5 deg extension or less deg in order to improve knee mobility during sitting, gait, and stair 03/12/24: 111 deg flex post manual, lacking 3 deg 03/25:110 flex post bike, 3 deg post bike. STG Duration 6 weeks 03/28/24 MET Snf Goal (LTG) Pt will improve L knee AROM to at least 115 deg flex and maintain 0 deg extension or less post-operatively in order to improve knee mobility during gait and stairs 04/18/2024: Knee flex ~115D. 04/21/24: 107 deg flex premanual, 114 deg flex post manual; lacking 2 deg ext 05/07/24: 112 deg flex, 0 deg ext LTG Duration 8 weeks 07/04/24- PROGRESSING Assessment Summary Assessment MJ has no knee pain at end of session but continues to demo difficulty with stairs due to limitations in knee flexion. Only able to perform 4 step down reciprocally with increased effort and poor control; improved post manual treatment to promote knee flexion. She has 118 deg L knee flexion at end of session . Initiated wall slides and eccentric step downs to promote both knee flexion ROM and strength, respectively. Both are challenging for pt. Quad and glute weakness still prevalent on LLE. Pt progress continues to be limited by ability to manage pain, swelling, and activity tolerance. She is planning to go on an international trip in June and will be out of town most of May, which will impact ability to attend PT during current plan of care. At this time, pt would continue to benefit from skilled PT to improve L knee flexion ROM and strength for stairs and car transfers. Physical Therapy Plan Frequency and Duration Frequency of Treatment 1-2x/wk Duration of treatment (weeks) 8 Plan of Care Start Date 05/07/24 Plan of Care End Date 07/04/24 Therapeutic Interventions Therapeutic Interventions Balance Training,Gait Training ,Home Exercise Program,Joint Mobilizations,Manual Therapy, Neuromuscular Re-education, Orthotic/Prosthetic Management ,Patient/Caregiver Education, Self-Care/Home Management, Sensory Integration,Soft Tissue Mobilization,Taping, Therapeutic Activities, Therapeutic Exercises Modalities Cold Pack/Ice Massage,Electric Stimulation,Hot Packs, Vasopneumatic Devices Next Visit Focus/Plan Next Note Type Treatment Note Next Visit Plan Focus on stairs (step down) and knee flexion ROM. Review wall slide for knee flexion. Eccentric step down and quad/ glute strength and control. Carryover for yoga stretch if time. Address goals Manual: STM as needed kamaljit to quad, HS, TFL, ITB; knee flexion jt mobilization ( sitting with tibial IR); can do TrP w/ Belkis if appropriate. Improve ROM
--- NOTE | 2024-05-28 17:11 | PT.OTN ---
Current Diagnoses Unilateral primary osteoarthritis, left knee (05/28/24) Stiffness of left knee, not elsewhere classified (05/28/24) Other lack of coordination (05/28/24) Weakness (05/28/24) Physical Therapy Treatment Note PT-OP-A Visit Information Start: 01/10/24 10:30 Freq: Status: Active Protocol: Document 05/28/24 13:57 NBM (Rec: 05/28/24 14:37 NBM [id number]) Out-Patient Physical Therapy Visit Information Visit Information Visit Type Treatment Note Visit Note s/p L TKA 01/11/24 Vitals SOS: 138/77, 98% SO2, no change in baseline (no nausea, dizziness, lightheadedness) reported throughout treatment Visit Start Time 13:52 Visit Stop Time 14:34 Visit Number 21 Number of MEDICAL CODING MANAGER Visits 1 PT-OP-B Current Condition Start: 01/10/24 10:30 Freq: Status: Active Protocol: Document 02/14/24 13:42 NM (Rec: 02/14/24 14:32 NM [id number]) Current Condition History of Current Condition Onset Date DOS 01/11/24 Current Complaints pain, mobility History of Current Condition 02/14/24: Pt now s/p L TKA. PT just had HHPT, reports went well. She has been doing her exercises everyday. Pt reports pain with getting in/out of car, sitting in car, ambulating, stairs. Has been going on walks 1/4 mi a few times, up and moving around house. Pt has been ambulating at home without spc in R hand. States 6/10 L knee pain at rest, 8/10 with movement; states worse at night. Only taking acetominophen for pain, orn takes ocycodone (bed time ). Has been using spc for about 2 weeks. 01/10/24: Pt will be having a L TKA tomorrow 01/10/[address] Rebollar. Pt has had fluid taken off several times, cortisone, hyaluronic acid to help with injections. Pt reports no difficulty with her R knee. She has 3 steps into home, rail on R side to enter; single story home. Pt presents with FWW. She has not been using an AD prior to surgery. Pt lives alone but her daughter lives in the same town; hoping daughter will help. Pt reports that she has aches in the back of her L leg (calf). Pt reports that the walker can fit in her home. She has a shower bar in her shower, none for toilet (low toilet). She is planning to be in hospital overnight. Treatment Goals Patient/Caregiver Goals walking a couple miles/day ( flat), back to yoga (a couple times/wk) PT-OP-C Subjective Start: 01/10/24 10:30 Freq: Status: Active Protocol: Document 05/28/24 13:57 NBM (Rec: 05/28/24 14:37 NBM [id number]) OP-PT Subjective Patient Comments Patient Comments DORA is feeling fatigued today after not sleeping well last night. Usually after exercising or walking she has to elevate and put ice on her knee, but it's bearable and doesn't prevent her from doing what she wants to be doing. Going down stairs is painful. She can cross her legs now which she couldn't two weeks ago, and can pull her ankle ( demos quad stretch) without strap now which she needed strap for just last week. She' s warming up with bike fwd/bwd then doing wall slide but the bike is outside so she hasn't with the weather. PT-OP-D Balance Start: 01/10/24 10:30 Freq: Status: Active Protocol: Document 02/14/24 13:42 NM (Rec: 02/14/24 16:12 NM [id number]) Balance Tests Single Limb Standing Single Limb- Right 4 seconds Single Limb- Left 1 second with pain Tandem Tandem Standing 15 seconds PT-OP-E Functional Tests Start: 01/10/24 10:30 Freq: Status: Active Protocol: Document 02/14/24 13:42 NM (Rec: 02/14/24 14:32 NM [id number]) Functional Tests 6 Minute Walk Test Distance 02/13: 664 ft; 01/09: 1094 ft Device Used 02/13: spc; 01/09: no AD Comments 02/13, 01/09: pain in L knee Five Times Sit to Stand Test Score 02/14/24: 15.37 sec, 01/09: 16. 8 sec Comments painful, LLE more forward PT-OP-F Manual Assessment Start: 01/10/24 10:30 Freq: Status: Active Protocol: Document 02/14/24 13:42 NM (Rec: 02/14/24 15:41 NM [id number]) Manual Assessments Soft Tissue Assessment Soft Tissue Mobility Assessment Tightness of anterior knee over scar. Restrictions of L hamstring and quad, calf Joint Mobility Assessment Joint Mobility Assessment Hypomobility of L knee, pain with knee flexion especially anterior over scar. Tendency for L hip ER as position of comfort PT-OP-G Mobility & Gait Start: 01/10/24 10:30 Freq: Status: Active Protocol: Document 02/14/24 13:42 NM (Rec: 02/14/24 15:41 NM [id number]) OP Mobility Evaluation Transfers Sit to Stand No UE assist from 18 but places LLE more forward than RLE OP Gait Assessment Gait Gait Assistance Required: Standby Assistance Distance (Feet) 664 Assistive Devices Assistive Device Gait Belt,Straight Cane Gait Deviations General Gait Pattern Antalgic Factors Limiting Gait Function Factors Limiting Gait Function Decreased Strength,Pain Comments Gait Comments Tendency for L hip ER with stance and swing if not using spc, then more neutral. Has very stiff L stance, minimal knee flexion even with cueing. Pre-opo: 1094 ft without AD PT-OP-H Neuro Start: 01/10/24 10:30 Freq: Status: Active Protocol: Document 02/14/24 13:42 NM (Rec: 02/14/24 16:12 NM [id number]) Sensation Evaluation Comments Summary Comments Will assess formally next session Increased sensitivity around/ on incision and on either side of L knee PT-OP-J Posture/Palpation/Skin Start: 01/10/24 10:30 Freq: Status: Active Protocol: Document 02/14/24 13:42 NM (Rec: 02/14/24 15:41 NM [id number]) Posture Evaluation Position Standing Head/C-Spine Posture Forward Head T-Spine Posture Increased Kyphosis Shoulder Posture (L) Rounded,(R) Rounded Pelvis Posture Anteriorly Tilted Weight Distribution Weight Shifted Right Hip Posture (R) Neutral,(L) Externally Rotated Knee Posture (L) Genu Valgus,(R) Genu Valgus Palpation Assessment Location L knee Palpation Details Tenderness along medial and lateral knee Increased sensitivity along scar, medial and lateral knee Increased tightness of calf, hamstrings, quads, hip flexores Skin Assessment Incisional Assessment Incision Appearance/Comments Incision intact, pink, clean and dry. No signs of infection or DVT, only reported tenderness of proximal calf. Over incision, leftover adhesive from bandage present PT-OP-K Range of Motion Start: 01/10/24 10:30 Freq: Status: Active Protocol: Document 05/07/24 13:50 NM (Rec: 05/07/24 14:33 NM [id number]) Knee Goniometric Range of Motion Knee Right Flexion Active (degrees) 120 Extension Active (degrees) 2 Left Flexion Active (degrees) 112 Extension Active (degrees) 0 Comments Pre-operative: 118 deg knee flexion, lacking 8 deg extension; Post op: 90 deg flex, lacking 11 deg ext 03/12/24: 105 deg flex start of session (111 post manual) and lacking 3 deg extension 04/21/24: 107 deg flex at start of session (114 deg post manual), lacking 2 deg ext 05/07/24: 0 deg ext, 112 deg flex (115 deg post 6MWT) PT-OP-M Strength Start: 01/10/24 10:30 Freq: Status: Active Protocol: Document 05/07/24 13:50 NM (Rec: 05/07/24 14:33 NM [id number]) Knee Strength Knee Manual Muscle Testing Right Flexion (S2) 4 Good Extension (L3) 4 Good Left Flexion (S2) 4 Good Extension (L3) 4+ Good+ Comments 01/09 pre-operative: 3+/5 post-op: 3/5 03/12/24: 4-/5 04/21/24: 4/5 for all 05/07/24: 4/5 flex, 4+/5 ext MMT; no pain PT-OP-Q Treatments Start: 01/10/24 10:30 Freq: Status: Active Protocol: Document 05/28/24 13:57 NBM (Rec: 05/28/24 14:37 NBM [id number]) Cardio Equipment Recumbent Bicycle Duration (Minutes) 8 Resistance 4 Seat Position 3 Other fwd/bwd/fwd/bwd warmup; vc LE alignment d/t excessive valgus Therapeutic Exercises Supine Exercises wall slides Supine Exercise Name HEP Side left Equipment Used R assist L Reps/Minutes 4x30 Comments for stair; Pain resolves w/ cues: LLE alignment to start/ maintain thru range heel slide Side left Reps/Minutes x10 with breathwork Comments cues for LLE d/t excessive hip ER through range Standing Exercises stairs Standing Exercise Name 4 Side bilateral Equipment Used reciprocal up and down Reps/Minutes 2 sets x 6 stairs Comments pain-limited L knee flex down, cues upright posture step down Standing Exercise Name 4 step Side bilateral Equipment Used 1 hand support Comments cued for hip hinge w/ knee flex on LLE Other Exercises shower mobility Other Exercise Name 1. knee flex/ankle DF at wall - verbal review Side left Reps/Minutes 10 Comments edu to hold grab bar, perform before lifting PT-OP-R Modalities Start: 02/19/24 12:05 Freq: Status: Active Protocol: Document 05/28/24 13:57 NBM (Rec: 05/28/24 14:37 [facility] [id number]) Hot Pack/Cold Pack Treatment Cold Pack Location L knee Patient Position Hooklying Patient Tolerance Good Comments Lumbar size anterior, cervical size posterior, LEs elevated. PT-OP-T Assessment and Plan Start: 01/10/24 10:30 Freq: Status: Active Protocol: Document 05/28/24 13:57 NBM (Rec: 05/28/24 14:37 [facility] [id number]) Physical Therapy Assessment Goals Five Impairment knee flexion/extension strength 3/5 post-op Gallery Or Museum Attendant Goal (LTG) Pt will improve L knee flexion and extension strength to at least 4+/5 MMT in order to demonstrate increased strength required for balance, gait, and ADLs 03/12/24: 4-/5 MMT 04/21/24: 4/5 MMT for all 05/07/24: 4/5 knee flex, 4+/5 MMT knee ext LTG Duration 8 weeks 07/04/24- PROGRESSING Four Impairment pain with transfers into car, tub, STS Short Term Goal (STG) Pt will report <3/10 L knee pain with transfers in/out of car or tub in order to demonstrate improvements in L knee AROM and pain management 03/12/24: pt continue to report pain 4/10 with car transfer 03/25/2024 pt reports pain can get up to an 8/10. STG Duration 6 weeks 03/28/24 Gallery Or Museum Attendant Goal (LTG) Pt will improve 5x STS time to 12.6 sec or better from standard chair without increase in L knee pain in order to demonstrate improved knee flexion for transfers and BLE strength 03/25/24: 13.1 secs, has on pain or increase in pain. 04/21/24: 10.4 sec LTG Duration 12 weeks 05/09/24 MET Three Impairment not performing HEP Short Term Goal (STG) Pt will be issued HEP and report compliance 2-3x/wk in order to maximize progression with PT 03/12/24: daily compliance STG Duration 3 weeks MET [employer] Attendant Goal (LTG) Pt will report compliance with HEP 3x/wk in order to transition to maintenance program and maintain progress made during PT 04/21/24: performing HEP daily LTG Duration 12 weeks 05/09/24 - MET Two Impairment pre-op 6 MWT distance 1094 ft; post op 664 ft w/ spc Short Term Goal (STG) Pt will normalize gait mechanics at least community distances without AD if appropriate in order to demonstrate increased independence with mobility similar to pre-operative mobility 03/12/24: household ambulation with antalgic gait and no AD, limited knee flex 04/21/24: prn community mobility with spc 05/22/24: no spc, minimal gait deviations STG Duration 5 weeks MET Custodial Goal (LTG) Pt will be ambulate >1200 ft ( age-related norm) post op without AD if appropriate in order to demonstrate improved activity tolerance, strength, and ability to return to walks several miles long 04/21/24: 1090 ft 03/07/25: 1069 ft LTG Duration 8 weeks- 07/04/24; NOT MET 05/07 One Impairment pre-op L knee ROM 118-8; post op 90-11 deg Short Term Goal (STG) Pt will improve L knee AROM to at least 100 deg flexion and lacking 5 deg extension or less deg in order to improve knee mobility during sitting, gait, and stair 03/12/24: 111 deg flex post manual, lacking 3 deg 03/25:110 flex post bike, 3 deg post bike. STG Duration 6 weeks 03/28/24 MET Custodial Goal (LTG) Pt will improve L knee AROM to at least 115 deg flex and maintain 0 deg extension or less post-operatively in order to improve knee mobility during gait and stairs 04/18/2024: Knee flex ~115D. 04/21/24: 107 deg flex premanual, 114 deg flex post manual; lacking 2 deg ext 05/07/24: 112 deg flex, 0 deg ext 05/28/24: Knee flex AROM 123D, cued for LE alignment 121D, 128D w/ overpressure. LTG Duration 8 weeks 07/04/24- PROGRESSING 05/28/24 Assessment Summary Assessment DORA presents fatigued today, possibly secondary to poor sleep last night; masks donned throughout visit. Vitals start of session are within norms of 138/77, 98% SO2, and pt reports no change in baseline and no nausea, dizziness, or lightheadedness throughout treatment. Treatment focus on improving L knee flexion ROM and pain management especially w/ wall slides. She requires cues ~4 laterally for L lower extremity alignment and is educated regarding how this misalignment could contribute to medial L knee pain. L medial knee pain performing wall slides resolves w/ LLE alignment cueing. She also requires LLE alignment cueing w/ recumbent bike, heel slides and stairs but demos improved self-awareness and self- correction for LLE alignment with all during session. Cryotherapy to L knee provided end of session w/ LEs elevated for swelling and pain management. Physical Therapy Plan Frequency and Duration Frequency of Treatment 1-2x/wk Duration of treatment (weeks) 8 Plan of Care Start Date 05/07/24 Plan of Care End Date 07/04/24 Therapeutic Interventions Therapeutic Interventions Balance Training,Gait Training ,Home Exercise Program,Joint Mobilizations,Manual Therapy, Neuromuscular Re-education, Orthotic/Prosthetic Management ,Patient/Caregiver Education, Self-Care/Home Management, Sensory Integration,Soft Tissue Mobilization,Taping, Therapeutic Activities, Therapeutic Exercises Modalities Cold Pack/Ice Massage,Electric Stimulation,Hot Packs, Vasopneumatic Devices Next Visit Focus/Plan Next Note Type Treatment Note Next Visit Plan Focus on stairs (step down) and knee flexion ROM. Review wall slide for knee flexion w/ emphasis on LLE alignment. Eccentric step down and quad/ glute strength and control. Carryover for yoga stretch if time. Address goals Manual: STM as needed kamaljit to quad, HS, TFL, ITB; knee flexion jt mobilization ( sitting with tibial IR); can do TrP w/ Belkis if appropriate. Improve ROM
--- NOTE | 2024-06-06 15:03 | PT.OTN ---
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 PT just had HHPT, reports went well. She has been doing her exercises everyday. Pt reports pain with getting in/out of car, sitting in car, ambulating, stairs. Has been going on walks 1/4 mi a few times, up and moving around house. Pt has been ambulating at home without spc in R hand. States 6/10 L knee pain at rest, 8/10 with movement; states worse at night. Only taking acetominophen for pain, orn takes ocycodone (bed time ). Has been using spc for about 2 weeks. 01/10/24: Pt will be having a L TKA tomorrow 01/10/[address] Rebollar. Pt has had fluid taken off several times, cortisone, hyaluronic acid to help with injections. Pt reports no difficulty with her R knee. She has 3 steps into home, rail on R side to enter; single story home. Pt presents with FWW. She has not been using an AD prior to surgery. Pt lives alone but her daughter lives in the same town; hoping daughter will help. Pt reports that she has aches in the back of her L leg (calf). Pt reports that the walker can fit in her home. She has a shower bar in her shower, none for toilet (low toilet). She is planning to be in hospital overnight. Treatment Goals Patient/Caregiver Goals walking a couple miles/day ( flat), back to yoga (a couple times/wk) PT-OP-C Subjective Start: 01/10/24 10:30 Freq: Status: Active Protocol: Document 06/06/24 13:48 NM (Rec: 06/06/24 15:03 NM [id number]) OP-PT Subjective Patient Comments Patient Comments MJ reports improvements in pain levels. She still reports trouble with bending knee to go down stairs, ok going up. Had 2 instances where foot got caught on stairs this week because unable to bend well, jolting knee; near falls but did not fall, able to catch self with railing. Reports heat after all exercise, same as before stairs episodes; stiffness present if not moving. Has been doing exercises. Planning on going to [place] this week, nervous to fly; has aisle seat . Has compression hose that goes up to thighs. PT-OP-D Balance Start: 01/10/24 10:30 Freq: Status: Active Protocol: Document 02/14/24 13:42 NM (Rec: 02/14/24 16:12 NM [id number]) Balance Tests Single Limb Standing Single Limb- Right 4 seconds Single Limb- Left 1 second with pain Tandem Tandem Standing 15 seconds PT-OP-E Functional Tests Start: 01/10/24 10:30 Freq: Status: Active Protocol: Document 02/14/24 13:42 NM (Rec: 02/14/24 14:32 NM [id number]) Functional Tests 6 Minute Walk Test Distance 02/13: 664 ft; 01/09: 1094 ft Device Used 02/13: spc; 01/09: no AD Comments 02/13, 01/09: pain in L knee Five Times Sit to Stand Test Score 02/14/24: 15.37 sec, 01/09: 16. 8 sec Comments painful, LLE more forward PT-OP-F Manual Assessment Start: 01/10/24 10:30 Freq: Status: Active Protocol: Document 02/14/24 13:42 NM (Rec: 02/14/24 15:41 NM [id number]) Manual Assessments Soft Tissue Assessment Soft Tissue Mobility Assessment Tightness of anterior knee over scar. Restrictions of L hamstring and quad, calf Joint Mobility Assessment Joint Mobility Assessment Hypomobility of L knee, pain with knee flexion especially anterior over scar. Tendency for L hip ER as position of comfort PT-OP-G Mobility & Gait Start: 01/10/24 10:30 Freq: Status: Active Protocol: Document 02/14/24 13:42 NM (Rec: 02/14/24 15:41 NM [id number]) OP Mobility Evaluation Transfers Sit to Stand No UE assist from 18 but places LLE more forward than RLE OP Gait Assessment Gait Gait Assistance Required: Standby Assistance Distance (Feet) 664 Assistive Devices Assistive Device Gait Belt,Straight Cane Gait Deviations General Gait Pattern Antalgic Factors Limiting Gait Function Factors Limiting Gait Function Decreased Strength,Pain Comments Gait Comments Tendency for L hip ER with stance and swing if not using spc, then more neutral. Has very stiff L stance, minimal knee flexion even with cueing. Pre-opo: 1094 ft without AD PT-OP-H Neuro Start: 01/10/24 10:30 Freq: Status: Active Protocol: Document 02/14/24 13:42 NM (Rec: 02/14/24 16:12 NM [id number]) Sensation Evaluation Comments Summary Comments Will assess formally next session Increased sensitivity around/ on incision and on either side of L knee PT-OP-J Posture/Palpation/Skin Start: 01/10/24 10:30 Freq: Status: Active Protocol: Document 02/14/24 13:42 NM (Rec: 02/14/24 15:41 NM [id number]) Posture Evaluation Position Standing Head/C-Spine Posture Forward Head T-Spine Posture Increased Kyphosis Shoulder Posture (L) Rounded,(R) Rounded Pelvis Posture Anteriorly Tilted Weight Distribution Weight Shifted Right Hip Posture (R) Neutral,(L) Externally Rotated Knee Posture (L) Genu Valgus,(R) Genu Valgus Palpation Assessment Location L knee Palpation Details Tenderness along medial and lateral knee Increased sensitivity along scar, medial and lateral knee Increased tightness of calf, hamstrings, quads, hip flexores Skin Assessment Incisional Assessment Incision Appearance/Comments Incision intact, pink, clean and dry. No signs of infection or DVT, only reported tenderness of proximal calf. Over incision, leftover adhesive from bandage present PT-OP-K Range of Motion Start: 01/10/24 10:30 Freq: Status: Active Protocol: Document 05/07/24 13:50 NM (Rec: 05/07/24 14:33 NM [id number]) Knee Goniometric Range of Motion Knee Right Flexion Active (degrees) 120 Extension Active (degrees) 2 Left Flexion Active (degrees) 112 Extension Active (degrees) 0 Comments Pre-operative: 118 deg knee flexion, lacking 8 deg extension; Post op: 90 deg flex, lacking 11 deg ext 03/12/24: 105 deg flex start of session (111 post manual) and lacking 3 deg extension 04/21/24: 107 deg flex at start of session (114 deg post manual), lacking 2 deg ext 05/07/24: 0 deg ext, 112 deg flex (115 deg post 6MWT) PT-OP-M Strength Start: 01/10/24 10:30 Freq: Status: Active Protocol: Document 05/07/24 13:50 NM (Rec: 05/07/24 14:33 NM [id number]) Knee Strength Knee Manual Muscle Testing Right Flexion (S2) 4 Good Extension (L3) 4 Good Left Flexion (S2) 4 Good Extension (L3) 4+ Good+ Comments 01/09 pre-operative: 3+/5 post-op: 3/5 03/12/24: 4-/5 04/21/24: 4/5 for all 05/07/24: 4/5 flex, 4+/5 ext MMT; no pain PT-OP-Q Treatments Start: 01/10/24 10:30 Freq: Status: Active Protocol: Document 06/06/24 13:48 NM (Rec: 06/06/24 15:03 NM [id number]) Therapeutic Exercises Supine Exercises wall slides Supine Exercise Name HEP review Side left Equipment Used R assist L for overpressure at end range Reps/Minutes 5x10 hold Comments better alignment heel slide Supine Exercise Name AROM Side left Reps/Minutes 10 Comments cued full ROM, intentional control for HEP, maintains alignment Sitting Exercises heel slide Sitting Exercise Name c/ strap assist Side left Equipment Used back supported by wall Reps/Minutes 5x10 hold Comments increased time; strap assist end range only; needs cues Self Knee Gap Sitting Exercise Name c/ towel roll behind knee: 1. seated, 2. supine (yoga only) Side left Reps/Minutes 1. 15x5, 2. 5x5 Comments small towel roll; reports better c/ towel roll, less pain Standing Exercises quad stretch Standing Exercise Name c/ strap (HEP review) Side bilateral Equipment Used gait belt assist, support for balance on plinth Reps/Minutes 2x30 ea Comments cued alignment, posture; pain free slider squat Standing Exercise Name post stairs- HEP Side bilateral Equipment Used slider under foot; hand support on rail Reps/Minutes 15 ea Comments cued knee flex/hip hinge, good squat; improved c/ reps, less L knee flex stairs Standing Exercise Name 6 Side bilateral Equipment Used reciprocal up/down Reps/Minutes 4 Comments limited by pain, lack knee flex; demos hip/trunk rot,cued posture calf stretch Standing Exercise Name did not perform but edu to perform prior to wall slides Manual Therapy Treatment Consent Patient gave verbal consent for manual Yes treatment Soft Tissue Mobilization L knee Body Location quad, HS, adductors Mobilization Type Rolling,Sustained Pressure, Trigger Point Release Intensity/Depth Moderate Body Position Supine Comments Trigger points, tenderness to adductors and hamstring. Good scar mobility, trigger points quad, adductors, distal lateral HS Joint Mobilizations L knee Joint tibiofemoral Direction post w/ inf glide, slight distraction and tibial IR Grade III Body Position Supine Reps/Duration 20 Comments PT supporting leg, bias into flex with IR slight distraction with post glide. Improved to 120 deg post manual (115 deg pre manual) Self-Care/Home Management Treatment Education Patient Education Joint Protection,Pain Management,Safety Other Education 10 min- Educated to perform knee flex/ext, ankle movement, marches prior to getting out of car/changing positions if stiff before ambulating Education for trip: recommend compression hose during flight , get up at least every 30 min -1 hour, stand or if able do seated/standing exercises ( knee flex/ext, ankle pumps, marches etc), compression sock during trip if ambulating during day, ice and elevate as needed during day/evenings. For safety on trip, continue to recommend step to pattern with LLE leading on descent for safety while on trip Educated to continue to wear compression sock during daytime for swelling management, ice and elevate following exercise. Continue to recommend bike Issued knee flexion bias HEP for pt trip until next session ; ok to temporarily d/c other HEP for now PT-OP-R Modalities Start: 02/19/24 12:05 Freq: Status: Active Protocol: Document 06/06/24 13:48 NM (Rec: 06/06/24 15:03 NM [id number]) Hot Pack/Cold Pack Treatment Cold Pack Location L knee Patient Position Hooklying Patient Tolerance Good Comments lumbar in pillow case, entire knee, elevated on bolster. skin assessed before/after. redness present. 10 min, maza within reach PT-OP-T Assessment and Plan Start: 01/10/24 10:30 Freq: Status: Active Protocol: Document 06/06/24 13:48 NM (Rec: 06/06/24 15:03 NM [id number]) Physical Therapy Assessment Goals Five Impairment knee flexion/extension strength 3/5 post-op Correction[employer] Guard Goal (LTG) Pt will improve L knee flexion and extension strength to at least 4+/5 MMT in order to demonstrate increased strength required for balance, gait, and ADLs 03/12/24: 4-/5 MMT 04/21/24: 4/5 MMT for all 05/07/24: 4/5 knee flex, 4+/5 MMT knee ext LTG Duration 8 weeks 07/04/24- PROGRESSING Four Impairment pain with transfers into car, tub, STS Short Term Goal (STG) Pt will report <3/10 L knee pain with transfers in/out of car or tub in order to demonstrate improvements in L knee AROM and pain management 03/12/24: pt continue to report pain 4/10 with car transfer 03/25/2024 pt reports pain can get up to an 8/10. STG Duration 6 weeks 03/28/24 Correctional Guard Goal (LTG) Pt will improve 5x STS time to 12.6 sec or better from standard chair without increase in L knee pain in order to demonstrate improved knee flexion for transfers and BLE strength 03/25/24: 13.1 secs, has on pain or increase in pain. 04/21/24: 10.4 sec LTG Duration 12 weeks 05/09/24 MET Three Impairment not performing HEP Short Term Goal (STG) Pt will be issued HEP and report compliance 2-3x/wk in order to maximize progression with PT 03/12/24: daily compliance STG Duration 3 weeks MET Chcf Goal (LTG) Pt will report compliance with HEP 3x/wk in order to transition to maintenance program and maintain progress made during PT 04/21/24: performing HEP daily LTG Duration 12 weeks 05/09/24 - MET Two Impairment pre-op 6 MWT distance 1094 ft; post op 664 ft w/ spc Short Term Goal (STG) Pt will normalize gait mechanics at least community distances without AD if appropriate in order to demonstrate increased independence with mobility similar to pre-operative mobility 03/12/24: household ambulation with antalgic gait and no AD, limited knee flex 04/21/24: prn community mobility with spc 05/22/24: no spc, minimal gait deviations STG Duration 5 weeks MET [facility]cf Goal (LTG) Pt will be ambulate >1200 ft ( age-related norm) post op without AD if appropriate in order to demonstrate improved activity tolerance, strength, and ability to return to walks several miles long 04/21/24: 1090 ft 03/07/25: 1069 ft LTG Duration 8 weeks- 07/04/24; NOT MET 05/07 One Impairment pre-op L knee ROM 118-8; post op 90-11 deg Short Term Goal (STG) Pt will improve L knee AROM to at least 100 deg flexion and lacking 5 deg extension or less deg in order to improve knee mobility during sitting, gait, and stair 03/12/24: 111 deg flex post manual, lacking 3 deg 03/25:110 flex post bike, 3 deg post bike. STG Duration 6 weeks 03/28/24 MET [employer]al Guard Goal (LTG) Pt will improve L knee AROM to at least 115 deg flex and maintain 0 deg extension or less post-operatively in order to improve knee mobility during gait and stairs 04/18/2024: Knee flex ~115D. 04/21/24: 107 deg flex premanual, 114 deg flex post manual; lacking 2 deg ext 05/07/24: 112 deg flex, 0 deg ext 05/28/24: Knee flex AROM 123D, cued for LE alignment 121D, 128D w/ overpressure. 06/06/24: 115 deg pre manua, 120 deg post manual LTG Duration 8 weeks 07/04/24- PROGRESSING 05/28/24 Assessment Summary Assessment Pt continues to struggle with descending stairs due to lack of end range knee flexion, quad strength, and continued swelling in knee. Initiated slider squat for quad strength and knee flexion. Established knee flexion program for HEP for end range knee flexion. Educated on swelling management for HEP and upcoming trip; extensive education on movement for management, elevation/ cryotherapy for stiffness and swelling. Pt sore at end of session, but improved knee flexion to 120 deg post manual . Pt would continue to benefit from skilled PT for progressive quad strengthening and knee flexion in order to improve ability to perform stairs. Physical Therapy Plan Frequency and Duration Frequency of Treatment 1-2x/wk Duration of treatment (weeks) 8 Plan of Care Start Date 05/07/24 Plan of Care End Date 07/04/24 Therapeutic Interventions Therapeutic Interventions Balance Training,Gait Training ,Home Exercise Program,Joint Mobilizations,Manual Therapy, Neuromuscular Re-education, Orthotic/Prosthetic Management ,Patient/Caregiver Education, Self-Care/Home Management, Sensory Integration,Soft Tissue Mobilization,Taping, Therapeutic Activities, Therapeutic Exercises Modalities Cold Pack/Ice Massage,Electric Stimulation,Hot Packs, Vasopneumatic Devices Next Visit Focus/Plan Next Note Type Progress Note Next Visit Plan Focus on stairs (step down) and knee flexion ROM. slider squat. Eccentric step down and quad/glute strength and control. Carryover for yoga stretch if time. Address goals Manual: STM as needed kamaljit to quad, HS, TFL, ITB; knee flexion jt mobilization ( sitting with tibial IR); can do TrP w/ Belkis if appropriate. Improve ROM
--- NOTE | 2024-06-19 15:30 | PT.OTN ---
Current Diagnoses Unilateral primary osteoarthritis, left knee (06/19/24) Stiffness of left knee, not elsewhere classified (06/19/24) Other lack of coordination (06/19/24) Weakness (06/19/24) Physical Therapy Treatment Note PT-OP-A Visit Information Start: 01/10/24 10:30 Freq: Status: Active Protocol: Document 06/19/24 14:37 NM (Rec: 06/19/24 15:29 NM [id number]) Out-Patient Physical Therapy Visit Information Visit Information Visit Type Discharge Summary Visit Start Time 14:35 Visit Stop Time 15:15 Visit Number 23 Evaluation Information Evaluation Date 01/10/24 Precautions Precautions DOS L TKA 01/11/24 PMH diabetes II PT-OP-B Current Condition Start: 01/10/24 10:30 Freq: Status: Active Protocol: Document 02/14/24 13:42 NM (Rec: 02/14/24 14:32 NM [id number]) Current Condition History of Current Condition Onset Date DOS 01/11/24 Current Complaints pain, mobility History of Current Condition 02/14/24: Pt now s/p L TKA. PT just had HHPT, reports went well. She has been doing her exercises everyday. Pt reports pain with getting in/out of car, sitting in car, ambulating, stairs. Has been going on walks 1/4 mi a few times, up and moving around house. Pt has been ambulating at home without spc in R hand. States 6/10 L knee pain at rest, 8/10 with movement; states worse at night. Only taking acetominophen for pain, orn takes ocycodone (bed time ). Has been using spc for about 2 weeks. 01/10/24: Pt will be having a L TKA tomorrow 01/10/[address] Rebollar. Pt has had fluid taken off several times, cortisone, hyaluronic acid to help with injections. Pt reports no difficulty with her R knee. She has 3 steps into home, rail on R side to enter; single story home. Pt presents with FWW. She has not been using an AD prior to surgery. Pt lives alone but her daughter lives in the same town; hoping daughter will help. Pt reports that she has aches in the back of her L leg (calf). Pt reports that the walker can fit in her home. She has a shower bar in her shower, none for toilet (low toilet). She is planning to be in hospital overnight. Treatment Goals Patient/Caregiver Goals walking a couple miles/day ( flat), back to yoga (a couple times/wk) PT-OP-C Subjective Start: 01/10/24 10:30 Freq: Status: Active Protocol: Document 06/19/24 14:37 NM (Rec: 06/19/24 15:29 NM [id number]) OP-PT Subjective Patient Comments Patient Comments Pt reports trip went well. Doing great on stairs following trip. Planning on trip to [facility]. Pt has been icing, reports semi compliant with HEP during vacation. Pt wanting to discharge today. Reports knee flexio better. No knee pain but still gets sore after exercise or ambulation. PT-OP-D Balance Start: 01/10/24 10:30 Freq: Status: Active Protocol: Document 02/14/24 13:42 NM (Rec: 02/14/24 16:12 NM [id number]) Balance Tests Single Limb Standing Single Limb- Right 4 seconds Single Limb- Left 1 second with pain Tandem Tandem Standing 15 seconds PT-OP-E Functional Tests Start: 01/10/24 10:30 Freq: Status: Active Protocol: Document 02/14/24 13:42 NM (Rec: 02/14/24 14:32 NM [id number]) Functional Tests 6 Minute Walk Test Distance 02/13: 664 ft; 01/09: 1094 ft Device Used 02/13: spc; 01/09: no AD Comments 02/13, 01/09: pain in L knee Five Times Sit to Stand Test Score 02/14/24: 15.37 sec, 01/09: 16. 8 sec Comments painful, LLE more forward PT-OP-F Manual Assessment Start: 01/10/24 10:30 Freq: Status: Active Protocol: Document 02/14/24 13:42 NM (Rec: 02/14/24 15:41 NM [id number]) Manual Assessments Soft Tissue Assessment Soft Tissue Mobility Assessment Tightness of anterior knee over scar. Restrictions of L hamstring and quad, calf Joint Mobility Assessment Joint Mobility Assessment Hypomobility of L knee, pain with knee flexion especially anterior over scar. Tendency for L hip ER as position of comfort PT-OP-G Mobility & Gait Start: 01/10/24 10:30 Freq: Status: Active Protocol: Document 02/14/24 13:42 NM (Rec: 02/14/24 15:41 NM [id number]) OP Mobility Evaluation Transfers Sit to Stand No UE assist from 18 but [address] LLE more forward than RLE OP Gait Assessment Gait Gait Assistance Required: Standby Assistance Distance (Feet) 664 Assistive Devices Assistive Device Gait Belt,Straight Cane Gait Deviations General Gait Pattern Antalgic Factors Limiting Gait Function Factors Limiting Gait Function Decreased Strength,Pain Comments Gait Comments Tendency for L hip ER with stance and swing if not using spc, then more neutral. Has very stiff L stance, minimal knee flexion even with cueing. Pre-opo: 1094 ft without AD PT-OP-H Neuro Start: 01/10/24 10:30 Freq: Status: Active Protocol: Document 02/14/24 13:42 NM (Rec: 02/14/24 16:12 NM [id number]) Sensation Evaluation Comments Summary Comments Will assess formally next session Increased sensitivity around/ on incision and on either side of L knee PT-OP-J Posture/Palpation/Skin Start: 01/10/24 10:30 Freq: Status: Active Protocol: Document 02/14/24 13:42 NM (Rec: 02/14/24 15:41 NM [id number]) Posture Evaluation Position Standing Head/C-Spine Posture Forward Head T-Spine Posture Increased Kyphosis Shoulder Posture (L) Rounded,(R) Rounded Pelvis Posture Anteriorly Tilted Weight Distribution Weight Shifted Right Hip Posture (R) Neutral,(L) Externally Rotated Knee Posture (L) Genu Valgus,(R) Genu Valgus Palpation Assessment Location L knee Palpation Details Tenderness along medial and lateral knee Increased sensitivity along scar, medial and lateral knee Increased tightness of calf, hamstrings, quads, hip flexores Skin Assessment Incisional Assessment Incision Appearance/Comments Incision intact, pink, clean and dry. No signs of infection or DVT, only reported tenderness of proximal calf. Over incision, leftover adhesive from bandage present PT-OP-K Range of Motion Start: 01/10/24 10:30 Freq: Status: Active Protocol: Document 06/19/24 14:37 NM (Rec: 06/19/24 15:29 NM [id number]) Knee Goniometric Range of Motion Knee Right Flexion Active (degrees) 120 Extension Active (degrees) 2 Left Flexion Active (degrees) 120 Extension Active (degrees) 0 Comments Pre-operative: 118 deg knee flexion, lacking 8 deg extension; Post op: 90 deg flex, lacking 11 deg ext 03/12/24: 105 deg flex start of session (111 post manual) and lacking 3 deg extension 04/21/24: 107 deg flex at start of session (114 deg post manual), lacking 2 deg ext 05/07/24: 0 deg ext, 112 deg flex (115 deg post 6MWT) 06/19/24: 120 to 0 deg PT-OP-M Strength Start: 01/10/24 10:30 Freq: Status: Active Protocol: Document 06/19/24 14:37 NM (Rec: 06/19/24 15:29 NM [id number]) Hip Strength Hip Manual Muscle Testing Right Flexion (L2) 4- Good- Extension (S1) 4- Good- Abduction 4- Good- Adduction 4- Good- Left Flexion (L2) 4+ Good+ Extension (S1) 4+ Good+ Abduction 4+ Good+ Adduction 4+ Good+ Comments No change from 01/09 pre-op visit RE: 3+/5 for all 04/21/24: 4/5 for all Knee Strength Knee Manual Muscle Testing Right Flexion (S2) 4 Good Extension (L3) 4 Good Left Flexion (S2) 4+ Good+ Extension (L3) 4+ Good+ Comments 01/09 pre-operative: 3+/5 post-op: 3/5 03/12/24: 4-/5 04/21/24: 4/5 for all 05/07/24: 4/5 flex, 4+/5 ext MMT; no pain PT-OP-Q Treatments Start: 01/10/24 10:30 Freq: Status: Active Protocol: Document 06/19/24 14:37 NM (Rec: 06/19/24 15:29 NM [id number]) Therapeutic Exercises Standing Exercises lunge Standing Exercise Name fwd: 1. non stepping, 2. stepping Side bilateral Equipment Used 1 hand support Reps/Minutes 10 ea leg, ea exercise Comments cued straight foot 3 way-hip slider Side bilateral Resistance level 2 band at thighs Equipment Used 1 hand on rail Reps/Minutes 10 ea, 5 ea with band at shins (HEP) Comments good control; prn cues for hip hinge Squat Side bilateral Resistance level 2 band Reps/Minutes 15 Other Exercises 6 MWT Reps/Minutes 1238 ft Comments no pain Neuro Re-Education Treatment Balance Activities SLS Details HEP Surface close SBA Reps/Duration 2x30 ea Comments 1 finger support on //bar PT-OP-R Modalities Start: 02/19/24 12:05 Freq: Status: Active Protocol: Document 06/06/24 13:48 NM (Rec: 06/06/24 15:03 NM [id number]) Hot Pack/Cold Pack Treatment Cold Pack Location L knee Patient Position Hooklying Patient Tolerance Good Comments lumbar in pillow case, entire knee, elevated on bolster. skin assessed before/after. redness present. 10 min, maza within reach PT-OP-T Assessment and Plan Start: 01/10/24 10:30 Freq: Status: Active Protocol: Document 06/19/24 14:37 NM (Rec: 06/19/24 15:29 NM [id number]) Physical Therapy Assessment Goals Five Impairment knee flexion/extension strength 3/5 post-op Usp Goal (LTG) Pt will improve L knee flexion and extension strength to at least 4+/5 MMT in order to demonstrate increased strength required for balance, gait, and ADLs 03/12/24: 4-/5 MMT 04/21/24: 4/5 MMT for all 05/07/24: 4/5 knee flex, 4+/5 MMT knee ext 06/19/24: 4+/5 for all LTG Duration 8 weeks 07/04/24- MET 06/19/24 Four Impairment pain with transfers into car, tub, STS Short Term Goal (STG) Pt will report <3/10 L knee pain with transfers in/out of car or tub in order to demonstrate improvements in L knee AROM and pain management 03/12/24: pt continue to report pain 4/10 with car transfer 03/25/2024 pt reports pain can get up to an 8/10. STG Duration 6 weeks 03/28/24 Usp Goal (LTG) Pt will improve 5x STS time to 12.6 sec or better from standard chair without increase in L knee pain in order to demonstrate improved knee flexion for transfers and BLE strength 03/25/24: 13.1 secs, has on pain or increase in pain. 04/21/24: 10.4 sec LTG Duration 12 weeks 05/09/24 MET Three Impairment not performing HEP Short Term Goal (STG) Pt will be issued HEP and report compliance 2-3x/wk in order to maximize progression with PT 03/12/24: daily compliance STG Duration 3 weeks MET Cutter In Goal (LTG) Pt will report compliance with HEP 3x/wk in order to transition to maintenance program and maintain progress made during PT 04/21/24: performing HEP daily LTG Duration 12 weeks 05/09/24 - MET Two Impairment pre-op 6 MWT distance 1094 ft; post op 664 ft w/ spc Short Term Goal (STG) Pt will normalize gait mechanics at least community distances without AD if appropriate in order to demonstrate increased independence with mobility similar to pre-operative mobility 03/12/24: household ambulation with antalgic gait and no AD, limited knee flex 04/21/24: prn community mobility with spc 05/22/24: no spc, minimal gait deviations STG Duration 5 weeks MET Usp Goal (LTG) Pt will be ambulate >1200 ft ( age-related norm) post op without AD if appropriate in order to demonstrate improved activity tolerance, strength, and ability to return to walks several miles long 04/21/24: 1090 ft 03/07/25: 1069 ft 06/19/24: 1283 ft without AD LTG Duration 8 weeks- 07/04/24; MET 06/19 One Impairment pre-op L knee ROM 118-8; post op 90-11 deg Short Term Goal (STG) Pt will improve L knee AROM to at least 100 deg flexion and lacking 5 deg extension or less deg in order to improve knee mobility during sitting, gait, and stair 03/12/24: 111 deg flex post manual, lacking 3 deg 03/25:110 flex post bike, 3 deg post bike. STG Duration 6 weeks 03/28/24 MET Usp Goal (LTG) Pt will improve L knee AROM to at least 115 deg flex and maintain 0 deg extension or less post-operatively in order to improve knee mobility during gait and stairs 04/18/2024: Knee flex ~115D. 04/21/24: 107 deg flex premanual, 114 deg flex post manual; lacking 2 deg ext 05/07/24: 112 deg flex, 0 deg ext 05/28/24: Knee flex AROM 123D, cued for LE alignment 121D, 128D w/ overpressure. 06/06/24: 115 deg pre manua, 120 deg post manual 06/19/24: 120 deg flex, 0 deg extension LTG Duration 8 weeks 07/04/24- MET 06/19/24 Progress Towards Goals Progress Comments All goals met Assessment Summary Assessment Pt demos ability to go up and down standard 6 stairs with control, no rail use and no knee pain. Improvement significant from last session 2 weeks ago. Remainder of session focusing on maintenance program for strengthening as PT and pt discussed discharge today. Good feedback for lunges, hip 3 way slider squat, chair squat, and SLS. Pt needs cueing only for correct execution intermittently and to maintain neutral foot position vs turning foot out. Pt fatigued at end of session and has knee soreness but not increased pain. Physical Therapy Plan Frequency and Duration Frequency of Treatment 1-2x/wk Duration of treatment (weeks) 8 Plan of Care Start Date 05/07/24 Plan of Care End Date 07/04/24 Therapeutic Interventions Therapeutic Interventions Balance Training,Gait Training ,Home Exercise Program,Joint Mobilizations,Manual Therapy, Neuromuscular Re-education, Orthotic/Prosthetic Management ,Patient/Caregiver Education, Self-Care/Home Management, Sensory Integration,Soft Tissue Mobilization,Taping, Therapeutic Activities, Therapeutic Exercises Modalities Cold Pack/Ice Massage,Electric Stimulation,Hot Packs, Vasopneumatic Devices Discharge Physical Therapy Discharge Reasons Goals Met Discharge Comments PT and pt discussed discharge as pt has met all PT goals. She reports minimal limitations with ADLs due to her knee, especially stairs and transfers. PT and pt established maintenance program for continued strengthening and maintaining ROM, educated to perform at least 3x/wk. PT also educated pt to follow up with PCP or surgeon if L knee pain returns /changes or worsens. Pt verbalizes understanding and will be discharged to maintenance program. Next Visit Focus/Plan Next Note Type Discharge Summary Next Visit Plan discharge from PT
== END 2024-06-20 08:54 | disposition home or self-care (01) ==
LOC: PHYS 14:30
PROVIDERS: Family Provider Family Medicine; PCP Family Medicine; Referring Provider Orthopaedic Surgery Adult Reconstructive Orthopaedic Surgery; Visit Provider Orthopaedic Surgery Adult Reconstructive Orthopaedic Surgery
DX: M17.12 Unilateral primary osteoarthritis, left knee (principal); M25.662 Stiffness of left knee, not elsewhere classified; R53.1 Weakness; R27.8 Other lack of coordination
CPT/HCPCS: 97032; 97110; 97116; 97140; 97161; 97164; 97530; 97535

== ENCOUNTER → 2024-06-30 11:38 | Outpatient (CLI) | payer MEDICARE, MEDICAID, SELFPAY ==
[2024-03-13 10:22] VITALS: PULSE 57; RESP 16; O2SAT 93; BMI 28.3
[2024-06-30 12:16] LABS: Add Manual Diff / Slide Review NO; Basophils Absolute Auto 100 /uL (0-100); Basophils Percent Auto 0.9 % (0-2); Eosinophils Absolute Auto 100 /uL (0-450); Eosinophils Percent Auto 1.2 % (2-4); Hematocrit 35.6 % (36-46); Hemoglobin 11.6 g/dL (12.0-16.0); Lymphocytes Absolute Auto 1400 /uL (1100-4500); Lymphocytes Percent Auto 23.3 % (25-40); Mean Corpuscular HGB Conc 32.5 % (30-36); Mean Corpuscular Hemoglobin 26.2 PG (26-34); Mean Corpuscular Volume 80.7 fL (80-100); Monocytes Absolute Auto 400 /uL (0-900); Monocytes Percent Auto 6.6 % (3-14); Neutrophils Absolute Auto 4000 /uL (1500-7000); Platelet Count 269 X10^3/uL (150-400); Red Blood Cell Count 4.41 X10^6/uL (4.0-5.2); Red Cell Distribution Width 15.1 % (11.6-14.8); White Blood Cell Count 5.9 X10^3/uL (4.5-11.0)
[2024-06-30 12:33] LABS: Alanine Aminotransferase 13 IU/L (<35); Albumin 4.4 g/dL (3.5-5.0); Albumin Globulin Ratio 1.3 (1.0-2.8); Alkaline Phosphatase 70 U/L (38-126); Aspartate Aminotransferase 23 IU/L (14-36); Bilirubin Total 0.6 mg/dL (0.2-1.3); Blood Urea Nitrogen 25 mg/dL (7-17); Calcium 8.8 mg/dL (8.4-10.2); Carbon Dioxide 28 mmol/L (22-32); Chloride 102 mmol/L (98-107); Estimated Glomerular Filt Rate 34 mL/min (>60); Globulin 3.5 g/dL (1.7-4.1); Glucose 111 mg/dL (80-110); HEMOLYSIS < 15 (0-50); Potassium 4.3 mmol/L (3.4-5.1); Sodium 139 mmol/L (137-145); Total Protein 7.9 g/dL (6.3-8.2)
[2024-06-30 13:02] LABS: TSH w/ Reflex to FT4 0.85 uIU/mL (0.47-4.68)
[2024-06-30 13:11] LABS: Appearance Urine UA SL CLOUDY; Bilirubin Urine UA NEGATIVE (NEGATIVE); Color Urine UA YELLOW; Glucose Urine UA 3+ g/dL (Negative); Ketones Urine UA NEGATIVE (NEGATIVE); Leukocyte Esterase Urine UA NEGATIVE (NEGATIVE); Nitrite Urine UA NEGATIVE (Negative); Occult Blood Urine UA NEGATIVE (Negative); Protein Urine UA NEGATIVE (Negative); Specific Gravity Urine UA <=1.005 (1.000-1.035); Urobilinogen Urine UA 0.2 E.U./dL (0.2)
[2024-06-30 13:18] LABS: Bacteria Urine None Seen; Culture Indicated Urine Cult Not Indicated; RBC Urine None Seen (0-5/HPF); Squamous Epithelial Cell Urine 1-5 /HPF (0-5/HPF); Urine Volume 10mL (spun); WBC Urine None Seen (0-5/HPF); pH Urine UA 5.5 (4.5-8.0)
[2024-07-02 03:41] LABS: CRP, High Sensitivity 5.91 mg/L (0.00-3.00)
== END ==
LOC: LAB 11:39
PROVIDERS: Family Medicine; Family Provider Family Medicine; PCP Family Medicine; Referring Provider Family Medicine; Visit Provider Family Medicine
DX: E11.41 Type 2 diabetes mellitus with diabetic mononeuropathy (principal); G47.00 Insomnia, unspecified; N18.32 Chronic kidney disease, stage 3b; E11.22 Type 2 diabetes mellitus with diabetic chronic kidney disease; E11.21 Type 2 diabetes mellitus with diabetic nephropathy; R61 Generalized hyperhidrosis; R59.0 Localized enlarged lymph nodes; D56.9 Thalassemia, unspecified; K50.90 Crohn's disease, unspecified, without complications
CPT/HCPCS: 36415; 80053; 81001; 84443; 85025; 86140

== ENCOUNTER → 2024-10-03 09:07 | Outpatient (CLI) | payer MEDICARE, MEDICAID, SELFPAY ==
[2024-03-13 10:22] VITALS: PULSE 57; RESP 16; O2SAT 93; BMI 28.3
[2024-10-03 09:30] LABS: Hemoglobin 11.1 g/dL (12.0-16.0)
[2024-10-03 09:34] LABS: Add Manual Diff / Slide Review NO; Basophils Absolute Auto 0 /uL (0-100); Basophils Percent Auto 0.8 % (0-2); Eosinophils Absolute Auto 100 /uL (0-450); Eosinophils Percent Auto 1.7 % (2-4); Hemoglobin 10.9 g/dL (12.0-16.0); Lymphocytes Absolute Auto 1300 /uL (1100-4500); Lymphocytes Percent Auto 24.4 % (25-40); Mean Corpuscular HGB Conc 33.2 % (30-36); Mean Corpuscular Hemoglobin 26.6 PG (26-34); Mean Corpuscular Volume 80.3 fL (80-100); Monocytes Absolute Auto 500 /uL (0-900); Monocytes Percent Auto 8.7 % (3-14); Neutrophils Absolute Auto 3500 /uL (1500-7000); Neutrophils Percent Auto 64.4 % (50-75); Platelet Count 234 X10^3/uL (150-400); Red Blood Cell Count 4.11 X10^6/uL (4.0-5.2); Red Cell Distribution Width 15.4 % (11.6-14.8); White Blood Cell Count 5.5 X10^3/uL (4.5-11.0)
[2024-10-03 10:09] LABS: HEMOLYSIS < 15 (0-50); Iron 39 ug/dL (37-170)
[2024-10-03 10:11] LABS: Alanine Aminotransferase 11 IU/L (<35); Albumin Globulin Ratio 1.5 (1.0-2.8); Alkaline Phosphatase 60 U/L (38-126); Aspartate Aminotransferase 21 IU/L (14-36); BUN Creatinine Ratio 19.3 (6-22); Bilirubin Total 0.4 mg/dL (0.2-1.3); Blood Urea Nitrogen 27 mg/dL (7-17); Calcium 8.9 mg/dL (8.4-10.2); Carbon Dioxide 30 mmol/L (22-32); Chloride 105 mmol/L (98-107); Estimated Glomerular Filt Rate 39 mL/min (>60); Globulin 2.7 g/dL (1.7-4.1); Glucose 99 mg/dL (70-99); HEMOLYSIS < 15 (0-50); Magnesium 1.2 mg/dL (1.6-2.3); Potassium 4.1 mmol/L (3.4-5.1); Sodium 140 mmol/L (137-145); Total Protein 6.7 g/dL (6.3-8.2)
[2024-10-03 10:11] LABS: BUN Creatinine Ratio 19.9 (6-22); Blood Urea Nitrogen 28 mg/dL (7-17); Calcium 8.9 mg/dL (8.4-10.2); Carbon Dioxide 28 mmol/L (22-32); Chloride 105 mmol/L (98-107); Estimated Glomerular Filt Rate 38 mL/min (>60); Glucose 98 mg/dL (70-99); HEMOLYSIS < 15 (0-50); Potassium 4.2 mmol/L (3.4-5.1); Sodium 141 mmol/L (137-145)
[2024-10-03 10:22] LABS: Percent Iron Saturation 16 % (15-50); Total Iron Binding Capacity 244 ug/dL (265-497); Transferrin 195 mg/dL (206-381)
[2024-10-03 10:35] LABS: Creatinine Urine Random 78.99 mg/dL; Protein (Total) Urine Random 10 mg/dL (0-12); Protein Creatinine Ratio Urine 0.12 GRAM/24H
[2024-10-03 10:47] LABS: Ferritin 81 ng/mL (11-264)
[2024-10-03 11:37] LABS: Hemoglobin A1C% w Est Avg Glu 5.6 % (4.0-6.0)
[2024-10-05 08:08] LABS: Parathyroid Hormone Int 69 pg/mL (15-65)
== END ==
PROVIDERS: Family Provider Family Medicine; PCP Family Medicine; Referring Provider Student in an Organized Health Care Education/Training Program; Visit Provider Student in an Organized Health Care Education/Training Program
DX: D70.9 Neutropenia, unspecified (principal); E11.22 Type 2 diabetes mellitus with diabetic chronic kidney disease; E11.41 Type 2 diabetes mellitus with diabetic mononeuropathy; N18.32 Chronic kidney disease, stage 3b; D63.1 Anemia in chronic kidney disease; N25.81 Secondary hyperparathyroidism of renal origin; N05.9 Unspecified nephritic syndrome with unspecified morphologic changes; R80.9 Proteinuria, unspecified; I82.409 Acute embolism and thrombosis of unspecified deep veins of unspecified lower extremity; Z79.01 Long term (current) use of anticoagulants; Z96.652 Presence of left artificial knee joint
CPT/HCPCS: 36415; 80048; 80053; 82570; 82728; 83036; 83540; 83550; 83735; 83970; 84156; 85014; 85018; 85025; 99213

== ENCOUNTER → 2024-10-16 14:33 | Outpatient (CLI) | payer MEDICARE, MEDICAID, SELFPAY ==
[2024-03-13 10:22] VITALS: PULSE 57; RESP 16; O2SAT 93; BMI 28.3
--- NOTE | 2024-10-16 14:35 | DI.MG.S_ITS ---
MM screening mammo BI: 10/16/2024. BI-RADS: 1 CLINICAL: 79-year old female for bilateral screening mammogram. Tyrer-Cuzick lifetime risk of 1.6%. No personal or first-degree family history of breast cancer. PRIOR EXAMS 06/20/2023, 06/15/2022, 05/01/2020, 03/28/2019, MAMMOGRAPHY TECHNIQUE: 2D and 3D (tomosynthesis) digital mammographic views obtained, with additional images as needed for full coverage. Current study was also evaluated with a Computer Aided Detection (CAD) system. DENSITY B. There are scattered areas of fibroglandular density. MAMMOGRAPHY FINDINGS Bilateral: No suspicious mass, asymmetry, microcalcification, or other abnormality seen. IMPRESSION: * No evidence of malignancy. RECOMMENDATIONS Bilateral * Annual screening mammography. OVERALL ASSESSMENT CATEGORY BI-RADS-1: Negative. The [employer] recommends annual screening mammography beginning at age 40 for women with average risk of breast cancer. ELECTRONICALLY SIGNED: Mehul Joseph M.D. on 10/19/2024 at 09:10:59 PM PT Interpreting Station ID: [id number]
--- NOTE | 2024-10-16 14:35 | DI.US.S_ITS ---
PROCEDURE: US PERIPH VENOUS LOW EXTREM LT INDICATIONS: DVT follow up TECHNIQUE: Real-time imaging, as well as color and pulse Doppler interrogation, were performed of the lower extremity deep veins from the inguinal ligament to the popliteal fossa, with documentation of the visualized calf veins. COMPARISON: None. FINDINGS: The common femoral, femoral, popliteal, and the visualized calf veins are normally compressible, and free of intraluminal thrombus. However there is minimal venous wall thickening seen at the left common femoral vein and superficial femoral vein suggestive mild scarring. Color and pulse Doppler demonstrate normal phasic intraluminal flow. There is normal augmentation response to distal compression maneuver. IMPRESSION: No findings of intraluminal lower extremity deep venous thrombosis. 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 Dictated by: Girish Patten M.D. on 10/16/2024 at 15:22 Approved by: Girish Patten M.D. on 10/16/2024 at 15:30
== END ==
LOC: MAMMO 14:34
PROVIDERS: PCP Family Medicine; Referring Provider Family Medicine; Visit Provider Family Medicine
DX: Z12.31 Encounter for screening mammogram for malignant neoplasm of breast (principal); I82.4Y2 Acute embolism and thrombosis of unspecified deep veins of left proximal lower extremity; Z79.01 Long term (current) use of anticoagulants
CPT/HCPCS: 77063; 77067; 93971

== ENCOUNTER → 2025-01-21 14:06 | Outpatient (CLI) | payer MEDICARE, MEDICAID, SELFPAY ==
[2024-03-13 10:22] VITALS: PULSE 57; RESP 16; O2SAT 93; BMI 28.3
[2025-01-21 16:04] LABS: Hemoglobin A1C% w Est Avg Glu 5.8 % (4.0-6.0)
[2025-01-21 16:35] LABS: Alanine Aminotransferase 10 IU/L (<35); Albumin 4.4 g/dL (3.5-5.0); Albumin Globulin Ratio 1.4 (1.0-2.8); Alkaline Phosphatase 73 U/L (38-126); Blood Urea Nitrogen 30 mg/dL (7-17); Calcium 9.4 mg/dL (8.4-10.2); Carbon Dioxide 28 mmol/L (22-32); Chloride 102 mmol/L (98-107); Estimated Glomerular Filt Rate 35 mL/min (>60); Globulin 3.2 g/dL (1.7-4.1); Glucose 111 mg/dL (70-99); HEMOLYSIS < 15 (0-50); Magnesium 1.4 mg/dL (1.6-2.3); Potassium 5.3 mmol/L (3.4-5.1); Sodium 139 mmol/L (137-145); Total Protein 7.6 g/dL (6.3-8.2)
[2025-01-21 16:48] LABS: Vitamin D 25 Hydroxy (D3) 36.8 ng/mL (30.0-100.0)
[2025-01-21 17:01] LABS: TSH w/ Reflex to FT4 0.51 uIU/mL (0.47-4.68)
== END ==
PROVIDERS: PCP Family Medicine; Referring Provider Family Medicine; Visit Provider Family Medicine
DX: E11.21 Type 2 diabetes mellitus with diabetic nephropathy (principal); E21.3 Hyperparathyroidism, unspecified; G47.00 Insomnia, unspecified; I10 Essential (primary) hypertension; E78.00 Pure hypercholesterolemia, unspecified; N18.32 Chronic kidney disease, stage 3b; I51.89 Other ill-defined heart diseases; Z79.01 Long term (current) use of anticoagulants; R01.1 Cardiac murmur, unspecified; E11.41 Type 2 diabetes mellitus with diabetic mononeuropathy; E11.22 Type 2 diabetes mellitus with diabetic chronic kidney disease; E55.9 Vitamin D deficiency, unspecified
CPT/HCPCS: 36415; 80053; 82306; 83036; 83735; 84443

== ENCOUNTER → 2025-04-20 12:25 | Outpatient (CLI) | payer MEDICARE, MEDICAID, SELFPAY ==
[2024-03-13 10:22] VITALS: PULSE 57; RESP 16; O2SAT 93; BMI 28.3
--- NOTE | 2025-04-20 | DI.RAD.S_ITS ---
PROCEDURE: ORTHO-XR FOOT 3V WB LEFT COMPARISON: [facility], , ORTHO-XR FOOT 3V WB RIGHT, 04/20/2025, 12:27. INDICATIONS: BILAT FOOT PAIN FINDINGS: No fracture or dislocation. Mild hallux valgus metatarsus prima varus alignment and medial bunion. Moderate 1st MTP and mild diffuse interphalangeal joint space narrowing with periarticular osteophyte formation. Calcaneal enthesopathy. IMPRESSION: 1. No fracture or dislocation. 2. Mild hallux valgus alignment and medial bunion. 3. Moderate 1st MTP and mild diffuse interphalangeal joint degeneration. 4. Calcaneal enthesopathy. If there is high concern for further derangement, consider MRI evaluation. Dictated by: Geovani ROMERO Interpreted: Manuel Castro MD on 04/20/2025 at 13:41 Transcribed by: JOHANNY on 04/20/2025 at 13:46 Approved by: Manuel Castro M.D. on 04/22/2025 at 9:08
--- NOTE | 2025-04-20 | DI.RAD.S_ITS ---
PROCEDURE: ORTHO-XR FOOT 3V WB RIGHT INDICATIONS: BILAT FOOT PAIN TECHNIQUE: 3 weight-bearing views acquired of the foot. COMPARISON: None. FINDINGS: Bones: No fractures or dislocations. No suspicious bony lesions. Mild hallux valgus metatarsus prima varus alignment and medial bunion. Retrocalcaneal bone spur. Severe 1st MTP arthritic changes. Moderate scattered midfoot and interphalangeal degenerative changes. Soft tissues: Calcifications seen around the 1st MTP. IMPRESSION: 1. Mild hallux valgus alignment and medial bunion. 2. Severe 1st MTP arthritic changes. Calcifications are seen around the 1st MTP. Moderate diffuse interphalangeal and midfoot joint degeneration. 3. Calcaneal enthesopathy. If there is high concern for further derangement, consider MRI evaluation. Dictated by: Geovani Ragland [facility] Interpreted: Manuel Castro MD on 04/20/2025 at 13:35 Transcribed by: JOHANNY on 04/20/2025 at 13:41 Approved by: Manuel Castro M.D. on 04/22/2025 at 9:07
== END ==
PROVIDERS: PCP Family Medicine; Referring Provider Family Medicine; Visit Provider Podiatrist Foot & Ankle Surgery
DX: M19.072 Primary osteoarthritis, left ankle and foot (principal); M19.071 Primary osteoarthritis, right ankle and foot; M79.671 Pain in right foot; M79.672 Pain in left foot; M20.12 Hallux valgus (acquired), left foot; M20.11 Hallux valgus (acquired), right foot; M21.612 Bunion of left foot; M21.611 Bunion of right foot; M77.32 Calcaneal spur, left foot; M77.31 Calcaneal spur, right foot
CPT/HCPCS: 73630